=== PATIENT | female | born 1950 | race Caucasian/White ===

== ENCOUNTER → 2016-10-24 | Outpatient (CLI) | payer OTHER ==
[~2016-10-24] MED LIST: ACHYD1T PO; ARIP10TA2 PO; ARIP20TA9 PO; CIPR-226 PO; CIPR250S3 PO; DCS100C PO; EST45C VG; ESTR1TAB24 PO; FLUO40CA PO; FLUO40CA12 PO; GABA600T PO; GBPN300C PO; GEMF600T3 PO; GLIM4TAB PO; HYDR-3820 PO; HYDR25TA4 PO; IBP800T PO; INSU100V SQ; INSU100V6 SQ; MAGN250T35 PO; METF-380 PO; MGX400T PO; OMEP20TA2 PO; OMEP40CA36 PO; OXYB10TA PO; PHEN-640 PO; SITA1TAB3 PO; SITA1TBM7 PO; TOPI100T2 PO; potassium citrate PO
--- NOTE | 2016-10-24 12:19 | Diagnostic Imaging Report ---
PROCEDURE: US Thyroid. TECHNIQUE: Multiple real-time grayscale images were obtained of the thyroid in various projections. INDICATION: Thyromegaly on physical exam. COMPARISON: None. DISCUSSION: The thyroid gland is normal in echotexture and size. The right thyroid measures 5.5 x 1.6 x 1.5 cm. The left thyroid measures 4.4 x 1.4 x 1.5 cm. There is an 8-mm hypoechoic heterogeneous nodule within the right thyroid gland which is nonspecific and too small to further characterize by ultrasound. No associated microcalcifications or internal color Doppler blood flow. Prominent lymph nodes are noted bilaterally measuring 1.7 cm on the right and 1.6 cm on the left. Lymph nodes maintain a normal fatty hilum with a mildly prominent cortex. Etiology is indeterminate, reactive versus pathologic. Recommend clinical correlation. IMPRESSION: 1. Subcentimeter indeterminate right thyroid nodule. Recommend 6 to 12-month sonographic followup. 2. Prominent bilateral cervical lymph nodes of uncertain etiology. Dictated by: Dictated on workstation # [id number]
== END ==
LOC: RAD 10:48
PROVIDERS: ATTEND Nurse Practitioner Family
DX: E04.1 Nontoxic single thyroid nodule (principal); R59.0 Localized enlarged lymph nodes
CPT/HCPCS: 76536

== ENCOUNTER → 2016-11-10 | Outpatient (CLI) | payer OTHER ==
--- NOTE | 2016-11-10 10:11 | Diagnostic Imaging Report ---
INDICATION: Swollen lymph nodes and cough. TECHNIQUE: PA and lateral views of the chest were obtained at 0728 hours. COMPARISON: 02/03/2015. FINDINGS: The heart is normal in size. The mediastinum appears unremarkable. The yennifer appear normal. There is a calcified granuloma in the right lung base which is unchanged. There are diffuse degenerative changes in the thoracic spine. IMPRESSION: No acute process in the chest. Stable calcified granuloma in the right base. No significant adenopathy of the chest is visualized. Dictated by: Dictated on workstation # [id number]
== END ==
LOC: RAD 06:55
PROVIDERS: ATTEND Internal Medicine
DX: R59.1 Generalized enlarged lymph nodes (principal)
CPT/HCPCS: 71020

== ENCOUNTER 2017-02-26 03:29 | Emergency (ER) | payer MEDICARE, OTHER ==
[~2017-02-26] VITALS: Ht 162.6 cm; Wt 76.2 kg
[2017-02-26] MEDS ORDERED: CARB1TAB19 (03:45)
[2017-02-26] MEDS ORDERED: METF500T4 (03:45)
[2017-02-26] MEDS ORDERED: OXYB10TA (03:45)
[2017-02-26] MEDS ORDERED: OMEP40CA36 (03:45)
[2017-02-26] MEDS ORDERED: ROPI2TAB4 (03:45)
[2017-02-26] MEDS: KETOROLAC 60 MG/2 ML VIAL IM ONE (04:36)
--- NOTE | 2017-02-26 04:39 | ED Fall/Injury ---
General Chief Complaint: Trauma-Non Activation Stated Complaint: LEFT LOWER SIDE,HIP & LEG PAIN Nursing Triage Note: LEFT HIP/SHOULDER PAIN S/P FALL FROM STANDING POSITION APPROX. 10DAYS AGO. PT DENIES LOC/OTHER INJURIES Source: patient Exam Limitations: no limitations History of Present Illness Time seen by provider: 03:43 Initial Comments This 66-year-old woman ambulates into the emergency room with complaints of left buttock and hip pain since having a fall on February 22. She reports pain has intensified since that time. She has remained ambulatory. She fell to the left side striking her shoulder on the wall and her hip on the ground. She could not sleep tonight because the pain and decided to present to the emergency room. She has been taking Tylenol for the pain. Pain is reportedly 8 /10 on the pain scale. Location Injury Occurred: HOME Allergies and Home Medications Allergies Coded Allergies: Nitrofurantoin Macrocrystal (Unverified Allergy, Unknown, RASH, 11/23/14) Penicillins (Unverified Allergy, Unknown, RASH, 11/23/14) Home Medications Aripiprazole 20 Mg Tablet, 20 MG PO DAILY, (Reported) Carbidopa/Levodopa 1 Each Tablet, (Reported) Estradiol 1 Mg Tablet, 1 MG PO DAILY, (Reported) Fluoxetine HCl 40 Mg Capsule, 40 MG PO BID, (Reported) Gabapentin 600 Mg Tablet, 1,200 MG PO DAILY, (Reported) Gemfibrozil 600 Mg Tablet, 600 MG PO BID, (Reported) Hydrochlorothiazide 25 Mg Tablet, 25 MG PO DAILY, (Reported) Insulin Glargine,Hum.rec.anlog 100 Unit/1 Ml Vial, 10 UNIT SQ HS, (Reported) Insulin Lispro 100 Unit/1 Ml Vial, 25 UNIT SQ TIDAC, (Reported) Magnesium Oxide 250 Mg Tablet, 250 MG PO BID, (Reported) Metformin HCl 500 Mg Tablet, (Reported) Omeprazole 40 Mg Capsule.dr, 40 MG PO DAILY, (Reported) Omeprazole 40 Mg Capsule.dr, (Reported) Oxybutynin Chloride 10 Mg Tab.er.24, (Reported) Ropinirole HCl 2 Mg Tablet, (Reported) Sitagliptin Phos/Metformin Hcl 1 Each Tablet, 1 TAB PO BID, (Reported) Topiramate 100 Mg Tablet, 100 MG PO BID, (Reported) [potassium citrate] , 1,080 MG PO BID WITH MEALS, (Reported) Constitutional: no symptoms reported Eyes: No Symptoms Reported Ears, Nose, Mouth, Throat: no symptoms reported Respiratory: no symptoms reported Cardiovascular: no symptoms reported Gastrointestinal: no symptoms reported Genitourinary: no symptoms reported Musculoskeletal: see HPI Skin: no symptoms reported Psychiatric/Neurological: No Symptoms Reported Past Ydjqszu-Moredk-Ornvpt Hx Patient Social History Alcohol Use: Denies Use Recreational Drug Use: No Smoking Status: Never a Smoker 2nd Hand Smoke Exposure: No Recent Foreign Travel: No Contact w/Someone Who Travel: No Recent Infectious Disease Expo: No Recent Hopitalizations: No Immunizations Up To Date Tetanus Booster (TDap): Unknown Seasonal Allergies Seasonal Allergies: Yes Surgeries History of Surgeries: Yes (kidney stone, right breast lesion, macroplastique) Surgeries: Hysterectomy Respiratory History of Respiratory Disorde: No Cardiovascular History of Cardiac Disorders: No Neurological History of Neurological Disord: Yes (Tremors) Reproductive System Hx Reproductive Disorders: No Genitourinary History of Genitourinary Disor: Yes Genitourinary Disorders: Kidney Stones Gastrointestinal History of Gastrointestinal Di: Yes Gastrointestinal Disorders: Gastroesophageal Reflux Musculoskeletal History of Musculoskeletal Dis: Yes (ARTHRITIS) Musculoskeletal Disorders: Arthritis Endocrine History of Endocrine Disorders: Yes Endocrine Disorders: Diabetes, Non-Insulin dep Cancer History of Cancer: No Psychosocial History of Psychiatric Problem: Yes Behavioral Health Disorders: Anxiety, Depression Integumentary History of Skin or Integumenta: No Blood Transfusions History of Blood Disorders: No Adverse Reaction to a Blood Tr: No Family Medical History Significant Family History: No Pertinent Family Hx Physical Exam Vital Signs Vital Sign - Last 12Hours 02/26/17 03:46 Temp 97.0 Pulse 69 Resp 18 B/P (MAP) 152/73 Pulse Ox 100 O2 Delivery Room Air Capillary Refill : Less Than 3 Seconds General Appearance: WD/WN, no apparent distress HEENT: PERRL/EOMI, normal ENT inspection Neck: normal inspection Cardiovascular: regular rate, rhythm, no edema, no murmur Respiratory: lungs clear, normal breath sounds, no respiratory distress, no accessory muscle use Gastrointestinal: normal bowel sounds, non tender, soft Back: normal inspection, no vertebral tenderness Extremities: normal inspection, no pedal edema, other (Tenderness in the musculature of the left buttock. 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, no motor/sensory deficits, alert, normal mood/affect, oriented x 3 Skin: normal color, warm/dry [place] Coma Score Best Eye Response: (4) Open Spontaneously Best Verbal Response: (5) Oriented Best Motor Response: (6) Obeys Commands [place] Total: 15 Progress/Results/Core Measures Results/Orders My Orders Orders - DARIEL TREVIZO MD Pelvis With Left Hip 2-3 Views (02/26/17 03:49) Ketorolac Injection (Toradol Injection) (02/26/17 04:30) Medications Given in ED Current Medications Medications Dose Ordered Sig/Matt Route Start Time Stop Time Status Last Admin Dose Admin Ketorolac Tromethamine 60 mg ONCE ONCE IM 02/26/17 04:30 02/26/17 04:31 DC 02/26/17 04:36 60 MG Vital Signs/I&O Vital Sign - Last 12Hours 02/26/17 02/26/17 03:46 04:40 Temp 97.0 97.0 Pulse 69 70 Resp 18 18 B/P (MAP) 152/73 Pulse Ox 100 100 O2 Delivery Room Air Room Air Blood Pressure Mean: 99 Diagnostic Imaging Diagonstic Imaging: Xray Plain Films/CT/US/NM/MRI: pelvis, hip Comments X-ray of the pelvis and the left hip viewed by me. Report not yet available. There are degenerative arthritic changes but no acute injuries identified. Departure Impression Impression: Primary Impression: Fall on same level Qualified Codes: W18.30XA - Fall on same level, unspecified, initial encounter Additional Impression: Left hip pain Disposition: 01 HOME, SELF-CARE Condition: Improved Departure-Patient Inst. Decision time for Depature: 04:30 Referrals: RIVKA PAGE DO (PCP/Family) Primary Care Physician Patient Instructions: NO INSTRUCTIONS GIVEN Add. Discharge Instructions: You may take Tylenol at the (acetaminophen) up to 1000 mg every 6 hours as needed for pain. Add ibuprofen 400 mg every 6 hours as needed for additional pain relief. Follow-up with your primary care provider if not improving. Gentle heat or ice may also be helpful for pain relief. All discharge instructions reviewed with patient and/or family. Voiced understanding. DARIEL TREVIZO MD Feb 26, 2017 04:39
[2017-02-26 04:40] VITALS: BP 164/77
--- NOTE | 2017-02-26 06:10 | Diagnostic Imaging Report ---
PELVIS WITH LEFT HIP 2-3 VIEWS Comparison: None available. Indication: Fall with left hip pain. Technique: AP pelvis with AP and frog-leg lateral views of the left hip. Findings: No acute or healing fracture. Mild to moderate productive degenerative changes of both hips. Well-corticated ossific fragment along the superior aspect of the left greater trochanter is likely from old trauma or heterotopic ossification within the gluteal tendons. Enthesopathic changes are seen in both iliac wings. Scattered pelvic phleboliths. Impression: 1. No acute or healing fracture about the left hip. Dictated by: Dictated on workstation # [id number]
[2017-02-27] MEDS ORDERED: PRD10T PO (18:31)
[2017-02-27] MEDS ORDERED: HYDR-3812 PO (18:31)
== END 2017-02-26 04:40 | disposition home or self-care (01) ==
LOC: EDUNIT# 03:29 → ER 03:34
DX: M25.552 Pain in left hip (principal); F41.9 Anxiety disorder, unspecified; F32.9 Major depressive disorder, single episode, unspecified; K21.9 Gastro-esophageal reflux disease without esophagitis; E11.9 Type 2 diabetes mellitus without complications; M16.10 Unilateral primary osteoarthritis, unspecified hip; Z87.442 Personal history of urinary calculi; Z90.710 Acquired absence of both cervix and uterus; Z79.4 Long term (current) use of insulin; Z79.84 Long term (current) use of oral hypoglycemic drugs; W18.30XA Fall on same level, unspecified, initial encounter
CPT/HCPCS: 96372; 99284

== ENCOUNTER 2017-02-27 17:22 | Emergency (ER) | payer MEDICARE, OTHER ==
[~2017-02-27] VITALS: Ht 162.6 cm; Wt 72.6 kg
[~2017-02-27 17:22] MED LIST changes: +CARB1TAB19; +METF500T4; +OMEP40CA36; +OXYB10TA; +ROPI2TAB4
--- NOTE | 2017-02-27 18:29 | ED Hip Pain/Injury ---
General Chief Complaint: Hip/Pelvic Problems Stated Complaint: L HIP PAIN Nursing Triage Note: C/o left hip pain. Reports recent fall but xrays were negative. Pt was recently evaluated in the ER and again at Dr. Swann's office. Pt received steroid injection at Shree's office. No bruising noted to hip. Source: patient, old records Exam Limitations: no limitations History of Present Illness Time seen by provider: 18:20 Initial Comments Patient presented to this emergency room very early yesterday morning with complaints of left hip pain after having a fall. See yesterday's note for further details. She then followed up with Dr. Swann in his office. She received a steroid injection at that time. She reports Dr. Swann felt she had hip bursitis aggravated by the fall. She has also been trying ibuprofen. She had temporary relief after the steroid injection, but states the pain is now intolerable despite the steroid and the NSAID therapy. She states Toradol injection given yesterday also did not have a lasting impact. Patient reports she missed 9 hours of work today because of these symptoms. Allergies and Home Medications Allergies Coded Allergies: Nitrofurantoin Macrocrystal (Unverified Allergy, Unknown, RASH, 11/23/14) Penicillins (Unverified Allergy, Unknown, RASH, 11/23/14) Home Medications Aripiprazole 20 Mg Tablet, 20 MG PO DAILY, (Reported) Carbidopa/Levodopa 1 Each Tablet, (Reported) Estradiol 1 Mg Tablet, 1 MG PO DAILY, (Reported) Fluoxetine HCl 40 Mg Capsule, 40 MG PO BID, (Reported) Gabapentin 600 Mg Tablet, 1,200 MG PO DAILY, (Reported) Gemfibrozil 600 Mg Tablet, 600 MG PO BID, (Reported) Hydrochlorothiazide 25 Mg Tablet, 25 MG PO DAILY, (Reported) Hydrocodone/Acetaminophen 1 Each Tablet, 1 EACH PO Q4H PRN for PAIN, #20 Prescribed by: DARIEL AVENDAÑO on 02/27/17 183 Insulin Glargine,Hum.rec.anlog 100 Unit/1 Ml Vial, 10 UNIT SQ HS, (Reported) Insulin Lispro 100 Unit/1 Ml Vial, 25 UNIT SQ TIDAC, (Reported) Magnesium Oxide 250 Mg Tablet, 250 MG PO BID, (Reported) Metformin HCl 500 Mg Tablet, (Reported) Omeprazole 40 Mg Capsule., 40 MG PO DAILY, (Reported) Omeprazole 40 Mg Capsule., (Reported) Oxybutynin Chloride 10 Mg Tab.er.24, (Reported) Prednisone 10 Mg Tab, 10 MG PO UD, #18 3 tablets daily for 3 days, then 2 daily for 3 days, then one daily for 3 days Prescribed by: DARIEL AVENDAÑO on 02/27/17 183 Ropinirole HCl 2 Mg Tablet, (Reported) Sitagliptin Phos/Metformin Hcl 1 Each Tablet, 1 TAB PO BID, (Reported) Topiramate 100 Mg Tablet, 100 MG PO BID, (Reported) [potassium citrate] , 1,080 MG PO BID WITH MEALS, (Reported) Constitutional: no symptoms reported EENTM: no symptoms reported Respiratory: no symptoms reported Cardiovascular: no symptoms reported Gastrointestinal: no symptoms reported Genitourinary: no symptoms reported : No Musculoskeletal: see HPI Skin: no symptoms reported Psychiatric/Neurological: No Symptoms Reported Past Eabypin-Zkjtuc-Tsyxci Hx Patient Social History 2nd Hand Smoke Exposure: No Recent Foreign Travel: No Contact w/Someone Who Travel: No Recent Infectious Disease Expo: No Recent Hopitalizations: No Immunizations Up To Date Tetanus Booster (TDap): Unknown Seasonal Allergies Seasonal Allergies: Yes Surgeries History of Surgeries: Yes (kidney stone, right breast lesion, macroplastique) Surgeries: Hysterectomy Respiratory History of Respiratory Disorde: No Cardiovascular History of Cardiac Disorders: No Neurological History of Neurological Disord: Yes (Tremors) Reproductive System Hx Reproductive Disorders: No Genitourinary History of Genitourinary Disor: Yes Genitourinary Disorders: Kidney Stones Gastrointestinal History of Gastrointestinal Di: Yes Gastrointestinal Disorders: Gastroesophageal Reflux Musculoskeletal History of Musculoskeletal Dis: Yes (ARTHRITIS) Musculoskeletal Disorders: Arthritis Endocrine History of Endocrine Disorders: Yes Endocrine Disorders: Diabetes, Non-Insulin dep Cancer History of Cancer: No Psychosocial History of Psychiatric Problem: Yes Behavioral Health Disorders: Anxiety, Depression Integumentary History of Skin or Integumenta: No Blood Transfusions History of Blood Disorders: No Adverse Reaction to a Blood Tr: No Family Medical History Significant Family History: No Pertinent Family Hx Physical Exam Vital Signs Vital Sign - Last 12Hours 02/27/17 02/27/17 18:10 18:49 Temp 97.2 Pulse 16 Resp 16 B/P (MAP) 144/76 Pulse Ox 98 Capillary Refill : Less Than 3 Seconds General Appearance: No Apparent Distress, WD/WN HEENT: Normal ENT Inspection Neck: Normal Inspection Respiratory: No Respiratory Distress Extremity: Normal Inspection, No Pedal Edema, Other (There is tenderness over the lateral trochanter on the left. No pain over palpation of the hip joint. 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 She received a steroid injection by Dr. Swann yesterday which gave her some temporary relief. X- ray images and report from yesterday were reviewed. The ossific density on x- ray and location of pain on exam would suggest trochanteric bursitis or tendinopathy. A Toradol injection was administered. Hydrocodone is being prescribed to help bridge her over along with a steroid taper. Departure Impression Impression: Primary Impression: Left hip pain Additional Impressions: Fall on same level Qualified Codes: W18.30XD - Fall on same level, unspecified, subsequent encounter Trochanteric bursitis of left hip Disposition: HOME, SELF-CARE Condition: Improved Departure-Patient Inst. Decision time for Depature: 18:20 Referrals: RIVKA SWANN DO (PCP/Family) Primary Care Physician Patient Instructions: Hip Bursitis (DC) Add. Discharge Instructions: You may continue taking ibuprofen up to 600 mg every 6 hours as needed for pain. This should help gradually reduce your pain. Take ibuprofen and prednisone with food or milk to avoid irritation on your stomach. Add hydrocodone for pain not controlled by ibuprofen. Complete steroid taper as prescribed. Take prednisone early in the day to avoid sleep disturbance. Take a stool softener such as Colace while on narcotic pain medications to avoid constipation. Follow-up with Dr. Swann or an orthopedic provider of your choice next week for repeat examination. Physical therapy for education on stretching and exercises to help with this pain may be beneficial. All discharge instructions reviewed with patient and/or family. Voiced understanding. Scripts Prednisone (Prednisone) 10 Mg Tab 10 MG PO UD, #18 TAB 3 tablets daily for 3 days, then 2 daily for 3 days, then one daily for 3 days Prov: DARIEL TREVIZO MD 02/27/17 Hydrocodone/Acetaminophen (Hydrocodon -Acetaminophen 5-325) 1 Each Tablet 1 EACH PO Q4H Y for PAIN, #20 TAB Prov: DARIEL TREVIZO MD 02/27/17 DARIEL TREVIZO MD Feb 27, 2017 18:29
[2017-02-27] MEDS ORDERED: PRD10T PO (18:31)
[2017-02-27] MEDS: KETOROLAC 60 MG/2 ML VIAL IM ONE (18:31)
[2017-02-27] MEDS ORDERED: HYDR-3812 PO (18:31)
[2017-02-27 18:49] VITALS: BP 140/74
--- OUTSIDE RECORDS SUMMARY | 2017-03-02 08:14 | XMS REPORT ---
Author Author JOSSIE GURROLA Organization [employer] Address Unknown Phone Unavailable Care Team Providers Care Data Communications Engineer Name Role Phone JOSSIE GURROLA CP Unavailable Allergies No Known Allergies Problems Problem Type Condition Code Onset Dates Condition Status Problem Generalized anxiety disorder F41.1 Active Problem Bipolar disorder, current episode depressed, severe, without psychotic features F31.4 Active Medications Medication Code System Code Instructions Start Date End Date Status Dosage Topamax [facility] [address]-39 100 MG Orally Twice a day September 06, 2014 1 tablet Prozac [facility] [address]-84 40 MG Orally twice a day September 06, 2014 1 capsule - brand name Gabapentin [facility] [address]-20 600 MG Orally TAKE 1 TABLET BY ORAL ROUTE 1 DAILY PRN FOR BACK/HIP/LEG PAIN Abilify [facility] [address]-76 20 MG Orally Once a day September 06, 2014 1 tablet Results No Known Results Summary Purpose [employer] Submission
--- OUTSIDE RECORDS SUMMARY | 2017-03-02 08:14 | XMS REPORT ---
Author Author MARÍA MANN [facility] [employer] Address Unknown Phone Unavailable Care Team Providers Care Compliance Vice President Name Role Phone MARÍA MANN CP Unavailable Allergies, Adverse Reactions, Alerts Substance Reaction Event Type Penicillin V Potassium hives Drug Allergy Macrodantin hives Drug Allergy Mushrooms hives, upset stomach Non Drug Allergy Cow milk hives, upset stomach Non Drug Allergy Goat milk hives, upset stomach Non Drug Allergy Eggs hives, upset stomach Non Drug Allergy Soy hives, upset stomach Non Drug Allergy Problems Problem Type Condition Code Onset Dates Condition Status Problem Generalized anxiety disorder F41.1 Active Assessment Adjustment disorder with mixed anxiety and depressed mood F43.23 Active Problem Bipolar disorder, current episode depressed, moderate F31.32 Active Medications No Known Medications Procedures Procedure Coding System Code Date Psych diagnostic evaluation, new patient CPT-4 27156 Apr 08, 2016 Results No Known Results Summary Purpose [employer] Submission
--- OUTSIDE RECORDS SUMMARY | 2017-03-02 08:14 | XMS REPORT ---
Author Author RYNE CAMP Organization [employer] Address Unknown Phone Unavailable Care Team Providers Care Group Home Supervisor Name Role Phone RYNE CAMP CP Unavailable Allergies No Known Allergies Problems Problem Type Condition Code Onset Dates Condition Status Problem Generalized anxiety disorder F41.1 Active Assessment Bipolar disorder, 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 Active Problem Bipolar disorder, 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 Active Assessment Generalized anxiety disorder F41.1 Active Medications No Known Medications Procedures Procedure Coding System Code Date Psychotherapy, patient &/family, 45 minutes, established patient CPT-4 61993 Jun 11, 2015 Results No Known Results Summary Purpose [employer] Submission
--- OUTSIDE RECORDS SUMMARY | 2017-03-02 08:14 | XMS REPORT ---
Author Author RYNE CAMP Organization [employer] Address Unknown Phone Unavailable Care Team Providers Care Retail Project Merchandiser Name Role Phone RYNE CAMP CP Unavailable Allergies No Known Allergies Problems Problem Type Condition Code Onset Dates Condition Status Problem Generalized anxiety disorder F41.1 Active Assessment Bipolar disorder, current episode depressed, moderate F31.32 Active Problem Bipolar disorder, current episode depressed, moderate F31.32 Active Assessment Generalized anxiety disorder F41.1 Active Medications No Known Medications Procedures Procedure Coding System Code Date Psychotherapy, patient &/family, 30 minutes, established patient CPT-4 76038 October 17, 2015 Results No Known Results Summary Purpose [employer] Submission
--- OUTSIDE RECORDS SUMMARY | 2017-03-02 08:14 | XMS REPORT ---
Author Author JOSSIE GURROLA Organization [facility] Address Unknown Care Team Providers Care Motel Maid Name Role Phone JOSSIE GURROLA Unavailable PROBLEMS Type Condition ICD9-CM Code [id number] Code Onset Dates Condition Status SNOMED Code Problem Bipolar disorder, current episode depressed, moderate F31.32 Active 762926011 Problem Generalized anxiety disorder F41.1 Active [id number] ALLERGIES Unknown Allergies SOCIAL HISTORY No smoking Hx information available PLAN OF CARE Activity Details Follow Up 3 Months Reason: VITAL SIGNS Height 65 in 2016-05-21 Weight 171 lbs 2016-05-21 Heart Rate 88 bpm 2016-05-21 Respiratory Rate 16 2016-05-21 BMI 28.45 kg/m2 2016-05-21 Blood pressure systolic 118 mmHg 2016-05-21 Blood pressure diastolic 62 mmHg 2016-05-21 MEDICATIONS Medication Instructions Dosage Frequency Start Date End Date Duration Status Topiramate 100 MG Orally Twice a day 1 tablet 12h 90 days Active Hydrochlorothiazide 25 MG Orally Once a day 1 tablet 24h Active Gemfibrozil 600 mg 1 tablet by Oral route 2 times per day Sep, Active Gabapentin 600 MG Orally once a day 2 tablets 24h Jun, 90 days Active Janumet 50-1,000 mg 1 Tablet by Oral route 1 time per day Feb, Active Potassium Citrate ER 10 MEQ (1080 MG) Orally twice a day 1 tablet with meals 12h Active Hydrocodone-Acetaminophen 10-325 mg 1 Tablet by Oral route 4 times per day PRN pain Jan, Active Omeprazole 40 mg 1 Capsule by Oral route 1 time per day Jan, Active Prozac 40 MG Orally client requests brand name twice a day 1 capsule 12h November, 90 days Active Ambien CR 12.5 MG Orally Once a day 1 tablet at bedtime as needed 24h 12 May, 2015 30 days Active Trazodone HCl 50 MG Orally Once a day 1 tablet at bedtime 24h May, 90 days Active Estradiol 1 mg 1 Tablet by Oral route 1 time per day 05 Dec, 2014 Active Magnesium 250 MG Orally twice a day 1 tablet with a meal 12h Active Abilify 20 MG Orally Once a day 1 tablet 24h Sep, 90 days Active RESULTS No Results PROCEDURES Procedure Date Ordered Related Diagnosis Body Site Office Visit, Est Pt., Level 3 May 21, 2016 IMMUNIZATIONS No Known Immunizations
--- OUTSIDE RECORDS SUMMARY | 2017-03-02 08:14 | XMS REPORT ---
Author Author RYNE CMAP Organization [employer] Address Unknown Phone Unavailable Care Team Providers Care Commanding Officer Motorized Squad Name Role Phone RYNE ACMP CP Unavailable Allergies No Known Allergies Problems Problem Type Condition Code Onset Dates Condition Status Problem Generalized anxiety disorder F41.1 Active Assessment Bipolar disorder, 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 Active Problem Bipolar disorder, 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 Active Assessment Generalized anxiety disorder F41.1 Active Medications No Known Medications Procedures Procedure Coding System Code Date Psychotherapy, patient &/family, 45 minutes, established patient CPT-4 37574 Jul 17, 2015 Results No Known Results Summary Purpose [employer] Submission
--- OUTSIDE RECORDS SUMMARY | 2017-03-02 08:14 | XMS REPORT ---
Author Author GOGO VALENZUELA [facility] [employer] Address Unknown Phone Unavailable Care Team Providers Care Gas Compressor Turbine Operator Name Role Phone GOGO VALENZUELA CP Unavailable Allergies, Adverse Reactions, Alerts Substance [...] anxiety disorder F41.1 Active Assessment Bipolar disorder, unspecified F31.9 Active Problem Bipolar disorder, current episode depressed, severe, without psychotic features F31.4 Active Assessment Generalized anxiety disorder F41.1 Active Assessment Insomnia G47.00 Active Medications Medication Code System Code Instructions Start Date End Date Status Dosage Ambien CR [facility] [address]-36 12.5 MG Orally Once a day May 17, 2015 1 tablet at bedtime as needed Procedures Procedure Coding System Code Date Office Visit, Est Pt., Level 4 CPT-4 53815 May 17, 2015 Results No Known Results Summary Purpose [employer] Submission
--- OUTSIDE RECORDS SUMMARY | 2017-03-02 08:14 | XMS REPORT ---
Author Author RYNE CAMP Organization [employer] Address Unknown Phone Unavailable Care Team Providers Care Vermin Exterminator Name Role Phone RYNE CAMP CP Unavailable [...] patient &/family, 30 minutes, established patient CPT-4 65584 October 31, 2015 Results No Known Results Summary Purpose [employer] Submission
--- OUTSIDE RECORDS SUMMARY | 2017-03-02 08:15 | XMS REPORT ---
Author Author RYNE CAMP Organization [employer] Address Unknown Phone Unavailable Care Team Providers Care Parking Enforcement Specialist Name Role Phone RYNE CAMP CP Unavailable Allergies No Known Allergies Problems Problem Type Condition Code Onset Dates Condition Status Problem Generalized anxiety disorder F41.1 Active Assessment Bipolar disorder, current episode depressed, severe, without psychotic features F31.4 Active Problem Bipolar disorder, current episode depressed, severe, without psychotic features F31.4 Active Assessment Generalized anxiety disorder F41.1 Active Medications No Known Medications Procedures Procedure Coding System Code Date Psychotherapy, patient &/family, 45 minutes, established patient CPT-4 92646 Apr 18, 2015 Results No Known Results Summary Purpose [employer] Submission
--- OUTSIDE RECORDS SUMMARY | 2017-03-02 08:15 | XMS REPORT ---
Author Author RYNE CAMP Organization [employer] Address Unknown Phone Unavailable Care Team Providers Care Documentum Consultant Name Role Phone RYNE CAMP CP Unavailable [...] patient &/family, 30 minutes, established patient CPT-4 63075 Aug 17, 2015 Results No Known Results Summary Purpose [employer] Submission
--- OUTSIDE RECORDS SUMMARY | 2017-03-02 08:15 | XMS REPORT ---
Author Author GOGO VALENZUELA [facility] [employer] Address Unknown Phone Unavailable Care Team Providers Care Morals Squad Police Officer Name Role Phone GOGO VALENZUELA Unavailable Allergies No Known Allergies Problems Problem Type Condition Code Onset Dates Condition Status Problem Generalized anxiety disorder F41.1 Active Problem Bipolar disorder, current episode depressed, severe, without psychotic features F31.4 Active Medications No Known Medications Results No Known Results Summary Purpose [employer] Submission
--- OUTSIDE RECORDS SUMMARY | 2017-03-02 08:15 | XMS REPORT ---
Author Author JOSSIE GURROLA [facility] [place] [employer] Address Unknown Phone Unavailable Care Team Providers Care Structural Metal Worker Name Role Phone JOSSIE GURROLA CP Unavailable Allergies, Adverse Reactions, Alerts Substance [...] Problem Generalized anxiety disorder F41.1 Active Assessment Generalized anxiety disorder F41.1 Active Problem Bipolar disorder, current episode depressed, moderate F31.32 Active Assessment Bipolar disorder, 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 Active Medications Medication Code System Code Instructions Start Date End Date Status Dosage Prozac [facility] [address]-81 40 MG Orally twice a day November 05, 2015 1 capsule Omeprazole [facility] [address]-93 40 mg February 02, 2014 1 Capsule by Oral route 1 time per day Prozac [facility] [address]-03 20 MG Orally and 1 capsule at night September 10, 2015 2 capsule in the morning Gemfibrozil [facility] [address]-08 600 mg September 06, 2014 1 tablet by Oral route 2 times per day Janumet [facility] [address]-20 50-1,000 mg Feb 23, 2013 1 Tablet by Oral route 1 time per day Topiramate [facility] [address]-57 100 MG Orally Twice a day 1 tablet Gabapentin [facility] [address]-10 600 MG Orally once a day Jun 06, 2015 2 tablets Hydrochlorothiazide [facility] [address]-60 25 MG Orally Once a day 1 tablet Estradiol [facility] [address]-37 1 mg Jun 09, 2014 1 Tablet by Oral route 1 time per day Premarin [facility] [address]-10 0.625 mg/gram September 06, 2012 1 Cream by Subcutaneous route 1 time per day Magnesium [facility] [address]-31 250 MG Orally twice a day 1 tablet with a meal Ambien CR [facility] [address]-20 12.5 MG Orally Once a day May 17, 2015 1 tablet at bedtime as needed Hydrocodone-Acetaminophen [facility] [address]-74 10-325 mg February 02, 2014 1 Tablet by Oral route 4 times per day PRN pain Abilify [facility] [address]-37 20 MG Orally Once a day September 06, 2014 1 tablet Potassium Citrate ER [facility] [address]-98 10 MEQ (1080 MG) Orally twice a day 1 tablet with meals Procedures Procedure Coding System Code Date MH Office Visit, Est Pt., Level 3 CPT-4 20752 November 05, 2015 Vital Signs Date/Time: November 05, 2015 Cardiac Monitoring Heart Rate 80 bpm Weight 171.2 lbs Height 65 in BMI 28.49 Index Blood Pressure Diastolic 65 mmHg Blood Pressure Systolic 110 mmHg Results No Known Results Summary Purpose [employer] Submission
--- OUTSIDE RECORDS SUMMARY | 2017-03-02 08:15 | XMS REPORT ---
Author Author GOGO VALENZUELA [facility] [employer] Address Unknown Phone Unavailable Care Team Providers Care Fruit Or Nut Farmworker Name Role Phone GOGO VALENZUELA Unavailable Allergies No Known Allergies Problems Problem Type Condition Code Onset Dates Condition Status Problem Generalized anxiety disorder F41.1 Active Problem Bipolar disorder, 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 Active Medications No Known Medications Results No Known Results Summary Purpose [employer] Submission
--- OUTSIDE RECORDS SUMMARY | 2017-03-02 08:15 | XMS REPORT ---
Author Author RYNE CAMP Organization [employer] Address Unknown Phone Unavailable Care Team Providers Care Sow Farm Manager Name Role Phone RYNE CAMP CP Unavailable [...] patient &/family, 30 minutes, established patient CPT-4 50756 May 15, 2016 Results No Known Results Summary Purpose [employer] Submission
--- OUTSIDE RECORDS SUMMARY | 2017-03-02 08:15 | XMS REPORT ---
Author Author JOSSIE GURROLA [facility] eClinicalWorks Address Unknown Phone Unavailable Care Team Providers Care Cheese Packer Name Role Phone JOSSIE GURROLA Unavailable Allergies, Adverse Reactions, Alerts Substance Reaction [...] F31.32 Active Assessment Bipolar disorder, current episode depressed, moderate F31.32 Active Medications Medication Code System Code Instructions Start Date End Date Status Dosage Janumet [facility] [address]-84 50-1,000 mg Feb 23, 2013 1 Tablet by Oral route 1 time per day Hydrochlorothiazide [facility] [address]-05 25 MG Orally Once a day 1 tablet Abilify [facility] [address]-43 20 MG Orally Once a day September 06, 2014 1 tablet Omeprazole [facility] [address]-56 40 mg February 02, 2014 1 Capsule by Oral route 1 time per day Gemfibrozil [facility] [address]-63 600 mg September 06, 2014 1 tablet by Oral route 2 times per day Potassium Citrate ER [facility] [address]-52 10 MEQ (1080 MG) Orally twice a day 1 tablet with meals Magnesium [facility] [address]-28 250 MG Orally twice a day 1 tablet with a meal Ambien CR [facility] [address]-96 12.5 MG Orally Once a day May 17, 2015 1 tablet at bedtime as needed Topiramate [facility] [address]-81 100 MG Orally Twice a day 1 tablet Prozac [facility] [address]-91 40 MG Orally twice a day November 05, 2015 1 capsule Gabapentin [facility] [address]-05 600 MG Orally once a day Jun 06, 2015 2 tablets Estradiol [facility] [address]-65 1 mg Jun 09, 2014 1 Tablet by Oral route 1 time per day Procedures Procedure Coding System Code Date Office Visit, Est Pt., Level 3 CPT-4 46311 Feb 04, 2016 Vital Signs Date/Time: Feb 04, 2016 Cardiac Monitoring Heart Rate 92 bpm Weight 178.4 lbs Height 65 in BMI 29.68 Index Blood Pressure Diastolic 60 mmHg Blood Pressure Systolic 120 mmHg Results No Known Results Summary Purpose eClinicalWorks Submission
--- OUTSIDE RECORDS SUMMARY | 2017-03-02 08:16 | XMS REPORT ---
Author Author RYNE CAMP Organization e[employer] Address Unknown Phone Unavailable Care Team Providers Care Poultry Scientist Name Role Phone RYNE CAMP CP Unavailable Allergies No Known Allergies Problems Problem Type Condition Code Onset Dates Condition Status Problem Generalized anxiety disorder F41.1 Active Assessment Bipolar disorder, 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 Active Problem Bipolar disorder, 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 Active Medications No Known Medications Procedures Procedure Coding System Code Date Psychotherapy, patient &/family, 30 minutes, established patient CPT-4 56179 May 24, 2015 Results No Known Results Summary Purpose eClinicalWorks Submission
--- OUTSIDE RECORDS SUMMARY | 2017-03-02 08:16 | XMS REPORT ---
Author Author RYNE CAMP Organization [employer] Address Unknown Phone Unavailable Care Team Providers Care Concrete Buster Operator Name Role Phone RYNE CAMP CP Unavailable [...] patient &/family, 30 minutes, established patient CPT-4 32231 Jun 28, 2015 Results No Known Results Summary Purpose eClinicalWorks Submission
--- OUTSIDE RECORDS SUMMARY | 2017-03-02 08:16 | XMS REPORT ---
Author Author RYNE CAMP Organization [employer] Address Unknown Phone Unavailable Care Team Providers Care Software Security Consultant Name Role Phone RYNE CAMP CP Unavailable Allergies No Known Allergies Problems Problem Type Condition Code Onset Dates Condition Status Problem Generalized anxiety disorder F41.1 Active Problem Bipolar disorder, current episode depressed, moderate F31.32 Active Medications No Known Medications Results No Known Results Summary Purpose AddSearchinicalWorks Submission
--- OUTSIDE RECORDS SUMMARY | 2017-03-02 08:16 | XMS REPORT ---
Author Author JOSSIE GURROLA [facility] eClinicalWorks Address Unknown Phone Unavailable Care Team Providers Care Shank Scourer Name Role Phone JOSSIE GURROLA Unavailable Allergies, [...] disorder, 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 Active Assessment Bipolar disorder, 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 Active Medications Medication Code System Code Instructions Start Date End Date Status Dosage Hydrocodone-Acetaminophen [facility] [address]-74 10-325 mg February 02, 2014 1 Tablet by Oral route 4 times per day PRN pain Premarin [facility] [address]-45 0.625 mg/gram September 06, 2012 1 Cream by Subcutaneous route 1 time per day Hydrochlorothiazide [facility] [address]-99 25 MG Orally Once a day 1 tablet Estradiol [facility] [address]-58 1 mg Jun 09, 2014 1 Tablet by Oral route 1 time per day Potassium Citrate ER [facility] [address]-38 10 MEQ (1080 MG) Orally twice a day 1 tablet with meals Janumet [facility] [address]-18 50-1,000 mg Feb 23, 2013 1 Tablet by Oral route 1 time per day Magnesium [facility] [address]-87 250 MG Orally twice a day 1 tablet with a meal Gabapentin [facility] [address]-28 600 MG Orally once a day Jun 06, 2015 2 tablets Gemfibrozil [facility] [address]-43 600 mg September 06, 2014 1 tablet by Oral route 2 times per day Omeprazole [facility] [address]-87 40 mg February 02, 2014 1 Capsule by Oral route 1 time per day Ambien CR [facility] [address]-82 12.5 MG Orally Once a day May 17, 2015 1 tablet at bedtime as needed Abilify [facility] [address]-89 20 MG Orally Once a day September 06, 2014 1 tablet Topamax [facility] [address]-12 100 MG Orally Twice a day September 06, 2014 1 tablet Prozac [facility] [address]-66 40 MG Orally twice a day September 06, 2014 1 capsule - brand name Procedures Procedure Coding System Code Date Office Visit, Est Pt., Level 3 CPT-4 57915 Jun 06, 2015 Vital Signs Date/Time: Jun 06, 2015 Cardiac Monitoring Heart Rate 80 bpm Weight 159.3 lbs Height 65 in BMI 26.51 Index Blood Pressure Diastolic 62 mmHg Blood Pressure Systolic 130 mmHg Results No Known Results Summary Purpose eClinicalWorks Submission
--- OUTSIDE RECORDS SUMMARY | 2017-03-02 08:17 | XMS REPORT ---
Author Author JOSSIE GURROLA [facility] [place] eClinicalWorks Address Unknown Phone Unavailable Care Team Providers Care Telephone Order Dispatcher Name Role Phone JOSSIE GURROLA CP Unavailable [...] Non Drug Allergy Problems Problem Type Condition ICD-9 Code Onset Dates Condition Status Assessment Depression, major, recurrent 296.30 Active Problem Other and unspecified bipolar disorders 296.89 Active Problem Bipolar disorder, unspecified 296.80 Active Problem Major depressive disorder, recurrent episode, moderate 296.32 Active Assessment Bipolar disorder, unspecified 296.80 Active Assessment Generalized anxiety disorder 300.02 Active Problem Major depressive disorder, recurrent episode, unspecified 296.30 Active Problem Generalized anxiety disorder 300.02 Active Medications Medication Code System Code Instructions Start Date End Date Status Dosage Topamax [facility] [address]-75 100 MG Orally Twice a day September 06, 2014 1 tablet Prozac [facility] [address]-85 40 MG Orally twice a day September 06, 2014 1 capsule - brand name Janumet [facility] [address]-82 50-1,000 mg Feb 23, 2013 1 Tablet by Oral route 1 time per day Gabapentin [facility] [address]-08 600 MG Orally once a day Mar 07, 2015 2 tablets Premarin [facility] [address]-28 0.625 mg/gram September 06, 2012 1 Cream by Subcutaneous route 1 time per day Gemfibrozil [facility] [address]-04 600 mg September 06, 2014 1 tablet by Oral route 2 times per day Hydrocodone-Acetaminophen [facility] [address]-28 10-325 mg February 02, 2014 1 Tablet by Oral route 4 times per day PRN pain Omeprazole [facility] [address]-49 40 mg February 02, 2014 1 Capsule by Oral route 1 time per day Abilify [facility] [address]-28 20 MG Orally Once a day September 06, 2014 1 tablet Estradiol [facility] [address]-82 1 mg Jun 09, 2014 1 Tablet by Oral route 1 time per day Procedures Procedure Coding System Code Date Office Visit, Est Pt., Level 3 CPT-4 28333 Mar 07, 2015 Vital Signs Date/Time: Mar 07, 2015 Temperature 98.0 F Weight 160.6 lbs Height 65 in BMI 26.72 Index Blood Pressure Diastolic 60 mmHg Blood Pressure Systolic 130 mmHg Cardiac Monitoring Heart Rate 72 bpm Results No Known Results Summary Purpose eClinicalWorks Submission
--- OUTSIDE RECORDS SUMMARY | 2017-03-02 08:17 | XMS REPORT ---
Author Author JOSSIE GURROLA Organization e[employer] Address Unknown Phone Unavailable Care Team Providers Care Boiler Room Operator Name Role Phone JOSSIE GURROLA Unavailable Allergies No Known Allergies Problems Problem Type Condition Code Onset Dates Condition Status Problem Generalized anxiety disorder F41.1 Active Problem Bipolar disorder, current episode depressed, moderate F31.32 Active Medications Medication Code System Code Instructions Start Date End Date Status Dosage Anthonyzack [facility] [address]-72 10 mg Orally Once a day Apr 28, 2016 1 tablet at bedtime as needed Results No Known Results Summary Purpose eClinicalWorks Submission
--- OUTSIDE RECORDS SUMMARY | 2017-03-02 08:17 | XMS REPORT ---
Author Author RYNE CAMP Organization eClinicalWorks Address Unknown Phone Unavailable Care Team Providers Care Ion Exchange Operator Name Role Phone RYNE CAMP CP [...] patient &/family, 30 minutes, established patient CPT-4 30411 Apr 17, 2016 Results No Known Results Summary Purpose eClinicalWorks Submission
--- OUTSIDE RECORDS SUMMARY | 2017-03-02 08:17 | XMS REPORT ---
Author Author RYNE CAMP Organization [employer] Address Unknown Phone Unavailable Care Team Providers Care Solar Installer Name Role Phone RYNE CAMP CP Unavailable Allergies No Known Allergies Problems Problem Type Condition Code Onset Dates Condition Status Problem Generalized anxiety disorder F41.1 Active Problem Bipolar disorder, current episode depressed, moderate F31.32 Active Medications No Known Medications Results No Known Results Summary Purpose eClinicalWorks Submission
--- OUTSIDE RECORDS SUMMARY | 2017-03-02 08:17 | XMS REPORT ---
Author Author RYNE CAMP Organization [employer] Address Unknown Phone Unavailable Care Team Providers Care Piano Case Maker Name Role Phone RYNE CAMP CP Unavailable Allergies No Known Allergies Problems Problem Type Condition Code Onset Dates Condition Status Problem Generalized anxiety disorder F41.1 Active Assessment Bipolar disorder, current episode depressed, severe, without psychotic features F31.4 Active Problem Bipolar disorder, current episode depressed, severe, without psychotic features F31.4 Active Medications No Known Medications Procedures Procedure Coding System Code Date Psychotherapy, patient &/family, 30 minutes, established patient CPT-4 43074 Apr 24, 2015 Results No Known Results Summary Purpose eClinicalWorks Submission
--- OUTSIDE RECORDS SUMMARY | 2017-03-02 08:17 | XMS REPORT ---
Author Author JOSSIE GURROLA Organization eClinicalWorks Address Unknown Phone Unavailable Care Team Providers Care Care Transport Nurse Name Role Phone JOSSIE GURROLA Unavailable Allergies No Known Allergies Problems Problem Type Condition Code Onset Dates Condition Status Problem Generalized anxiety disorder F41.1 Active Problem Bipolar disorder, current episode depressed, moderate F31.32 Active Medications Medication Code System Code Instructions Start Date End Date Status Dosage Kory CHARLES [facility] [address]-21 12.5 MG Orally Once a day May 17, 2015 1 tablet at bedtime as needed Results No Known Results Summary Purpose eClinicalWorks Submission
--- OUTSIDE RECORDS SUMMARY | 2017-03-02 08:17 | XMS REPORT ---
Author Author RYNE CAMP Organization eClinical[employer] Address Unknown Phone Unavailable Care Team Providers Care Web Feeder Name Role Phone RYNE CAMP CP Unavailable [...] patient &/family, 45 minutes, established patient CPT-4 61792 Aug 03, 2015 Results No Known Results Summary Purpose eClinicalWorks Submission
--- OUTSIDE RECORDS SUMMARY | 2017-03-02 08:17 | XMS REPORT ---
Author Author RYNE CAMP Organization eClinicalWorks Address Unknown Phone Unavailable Care Team Providers Care Informatica Mdm Developer Name Role Phone RYNE CAMP CP Unavailable Allergies No Known Allergies Problems Problem Type Condition ICD-9 Code Onset Dates Condition Status Problem Other and unspecified bipolar disorders 296.89 Active Problem Bipolar disorder, unspecified 296.80 Active Problem Major depressive disorder, recurrent episode, moderate 296.32 Active Assessment Bipolar disorder, unspecified 296.80 Active Problem Major depressive disorder, recurrent episode, unspecified 296.30 Active Problem Generalized anxiety disorder 300.02 Active Medications No Known Medications Procedures Procedure Coding System Code Date Psychotherapy, patient &/family, 45 minutes, established patient CPT-4 44356 Mar 19, 2015 Results No Known Results Summary Purpose eClinicalWorks Submission
--- OUTSIDE RECORDS SUMMARY | 2017-03-02 08:17 | XMS REPORT ---
Author Author RYNE CAMP Organization eClinicalWorks Address Unknown Phone Unavailable Care Team Providers Care Research Asst Name Role Phone RYNE CAMP CP Unavailable [...] patient &/family, 30 minutes, established patient CPT-4 38006 Feb 19, 2016 Results No Known Results Summary Purpose eClinicalWorks Submission
--- OUTSIDE RECORDS SUMMARY | 2017-03-02 08:17 | XMS REPORT ---
Author Author RYNE CAMP Organization eClinicalWorks Address Unknown Phone Unavailable Care Team Providers Care Block Layer Name Role Phone RYNE CAMP CP Unavailable [...] patient &/family, 30 minutes, established patient CPT-4 60380 January 21, 2016 Results No Known Results Summary Purpose eClinicalWorks Submission
--- OUTSIDE RECORDS SUMMARY | 2017-03-02 08:18 | XMS REPORT ---
Author Author GOGO VALENZUELA [facility] eClinicalWorks Address Unknown Phone Unavailable Care Team Providers Care Environmental Field Technician Name Role Phone GOGO VALENZUELA CP Unavailable [...] F31.0 Active Assessment Bipolar disorder, current episode depressed, severe, without psychotic features F31.4 Active Medications Medication Code System Code Instructions Start Date End Date Status Dosage Gabapentin [facility] [id number] NA TAKE 1 TABLET BY ORAL ROUTE 1 DAILY PRN FOR BACK/HIP/LEG PAIN Prozac [facility] [address]-48 40 MG Orally twice a day September 06, 2014 1 capsule - brand name Omeprazole [facility] [address]-16 40 mg February 02, 2014 1 Capsule by Oral route 1 time per day Hydrocodone-Acetaminophen [facility] [address]-33 10-325 mg February 02, 2014 1 Tablet by Oral route 4 times per day PRN pain Topamax [facility] [address]-99 100 MG Orally Twice a day September 06, 2014 1 tablet Abilify [facility] [address]-35 20 MG Orally Once a day September 06, 2014 1 tablet Janumet [facility] [address]-26 50-1,000 mg Feb 23, 2013 1 Tablet by Oral route 1 time per day Gemfibrozil [facility] [address]-14 600 mg September 06, 2014 1 tablet by Oral route 2 times per day Estradiol [facility] [address]-11 1 mg Jun 09, 2014 1 Tablet by Oral route 1 time per day Ambien CR [facility] [address]-79 12.5 MG Orally Once a day May 17, 2015 1 tablet at bedtime as needed Premarin [facility] [address]-72 0.625 mg/gram September 06, 2012 1 Cream by Subcutaneous route 1 time per day Procedures Procedure Coding System Code Date MH Office Visit, Est Pt., Level 4 CPT-4 22036 May 28, 2015 Vital Signs Date/Time: May 28, 2015 Cardiac Monitoring Heart Rate 84 bpm Weight 159.0 lbs Height 65 in BMI 26.46 Index Blood Pressure Diastolic 66 mmHg Blood Pressure Systolic 140 mmHg Results No Known Results Summary Purpose eClinicalWorks Submission
--- OUTSIDE RECORDS SUMMARY | 2017-03-02 08:18 | XMS REPORT ---
Author Author RYNE CAMP Organization eClinicalWorks Address Unknown Phone Unavailable Care Team Providers Care Health Sciences Manager Name Role Phone RYNE CAMP CP [...] patient &/family, 30 minutes, established patient CPT-4 66010 May 01, 2015 Results No Known Results Summary Purpose eClinicalWorks Submission
--- OUTSIDE RECORDS SUMMARY | 2017-03-02 08:18 | XMS REPORT ---
Author Author RYNE CAMP Organization e[employer] Address Unknown Phone Unavailable Care Team Providers Care Threading Machine Setter Name Role Phone RYNE CAMP CP Unavailable [...] patient &/family, 30 minutes, established patient CPT-4 21512 May 17, 2015 Results No Known Results Summary Purpose eClinicalWorks Submission
--- OUTSIDE RECORDS SUMMARY | 2017-03-02 08:22 | XMS REPORT | Continuity of Care Document ---
Author Author [facility] Address Unknown Phone Unavailable Allergies Active Description Code Type Severity Reaction Onset Reported/Identified Relationship to Patient Clinical Status Yes COMMON MUSHROOM Food Allergy N/A N/A 01/22/2011 Yes COW MILK Food Allergy N/A N/A 01/22/2011 Yes EGGS Food Allergy N/A N/A 01/22/2011 Yes GOAT MILK Food Allergy N/A N/A 01/22/2011 Yes WHEAT Food Allergy N/A N/A 01/22/2011 Yes COMMON MUSHROOM Food Allergy 01/22/2011 Yes COW MILK Food Allergy 01/22/2011 Yes EGGS Food Allergy 01/22/2011 Yes GOAT MILK Food Allergy 01/22/2011 Yes WHEAT Food Allergy 01/22/2011 Yes Macrodantin Drug Allergy N/A N/A 07/25/2011 Yes Penicillins Drug Allergy N/A N/A 07/25/2011 Yes Macrodantin Drug Allergy 07/25/2011 Yes Penicillins Drug Allergy 07/25/2011 Yes gabapentin 600 mg Tablet Drug Allergy N/A N/A 04/25/2013 Yes soy Drug Allergy N/A N/A 12/02/2013 Yes Nitrofurantoin Macrocrystal [id number] Drug Allergy Unknown RASH 11/23/2014 Yes Penicillins [id number] Drug Allergy Unknown RASH 11/23/2014 Medications 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 301.13 MO CYCLOTHYMIC 01/26/2008 ZOË PHD, RYNE Gan 301.13 MO CYCLOTHYMIC 01/26/2008 ZOË PHD, RYNE Gan 301.13 MO CYCLOTHYMIC 01/26/2008 ZOË PHD, RYNE Gan 301.13 MO CYCLOTHYMIC 01/26/2008 ZOË PHD, RYNE Gan 301.13 MO CYCLOTHYMIC 01/26/2008 ZOË PHD, RYNE Gan 301.13 MO CYCLOTHYMIC 01/26/2008 JAIR BRADY [facility] 301.13 MO CYCLOTHYMIC 01/26/2008 ZOË GONZALEZ, RYNE Gan 301.13 MO CYCLOTHYMIC 01/26/2008 JAIR BRADY [facility] 301.13 MO CYCLOTHYMIC 01/26/2008 ZOË GONZALEZ, RYNE Gan 301.13 MO CYCLOTHYMIC 01/26/2008 ZOË GONZALEZ, RYNE Gan 301.13 MO CYCLOTHYMIC 01/26/2008 JAIR BRADY [facility] 301.13 MO CYCLOTHYMIC 01/26/2008 ZOË GONZALEZ, RYNE Gan 301.13 MO CYCLOTHYMIC 01/26/2008 ZOË GONZALEZ, RYNE Gan 301.13 MO CYCLOTHYMIC 01/26/2008 JAIR [address]AD[address] 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, JOSSIE M 301.13 MO CYCLOTHYMIC 01/26/2008 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, 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 M 301.13 MO CYCLOTHYMIC 01/26/2008 ZOË GONZALEZ, RYNE Gan 301.13 MO CYCLOTHYMIC 01/26/2008 IZABLEA LOPEZ, JOSSIE Bartlett 301.13 MO CYCLOTHYMIC 03/09/2008 EN PEARSON DO 307.47 SI DYSSOMNIA NOS 03/09/2008 307.47 SI DYSSOMNIA NOS 03/09/2008 ZOË GONZALEZ, RYNE Gan 307.47 SI DYSSOMNIA NOS 03/09/2008 EN PEARSON DO 307.47 SI DYSSOMNIA NOS 03/09/2008 ZOË GONZALEZ, RYNE Gan 307.47 SI DYSSOMNIA NOS 03/09/2008 307.47 SI DYSSOMNIA NOS 03/09/2008 307.47 SI DYSSOMNIA NOS 03/09/2008 307.47 SI DYSSOMNIA NOS 03/09/2008 307.47 SI DYSSOMNIA NOS 03/09/2008 307.47 SI DYSSOMNIA NOS 03/09/2008 307.47 SI DYSSOMNIA NOS 03/09/2008 307.47 SI DYSSOMNIA NOS 03/09/2008 RYNE CAMP PHD 307.47 SI DYSSOMNIA NOS 03/09/2008 RYNE CAMP PHD 307.47 SI DYSSOMNIA NOS 03/09/2008 YASSINE ADAM APRN 307.47 SI DYSSOMNIA NOS 03/09/2008 RYNE CAMP PHD 307.47 SI DYSSOMNIA NOS 03/09/2008 RYNE CAMP PHD 307.47 SI DYSSOMNIA NOS 03/09/2008 RYNE CAMP PHD 307.47 SI DYSSOMNIA NOS 03/09/2008 RYNE CAMP PHD 307.47 SI DYSSOMNIA NOS 03/09/2008 RYNE CAMP PHD 307.47 SI DYSSOMNIA NOS 03/09/2008 YASSINE ADAM APRN 307.47 SI DYSSOMNIA NOS 03/09/2008 ZOË GONZALEZ, RYNE Gan 307.47 SI DYSSOMNIA NOS 03/09/2008 JAIR BRADY YASSINE RERE 307.47 SI DYSSOMNIA NOS 03/09/2008 ZOË GONZALEZ, RYNE Gan 307.47 SI DYSSOMNIA NOS 03/09/2008 ZOË GONZALEZ, RYNE Gna 307.47 SI DYSSOMNIA NOS 03/09/2008 JAIR BRADY YASSINE RERE 307.47 SI DYSSOMNIA NOS 03/09/2008 ZOË GONZALEZ, RYNE Gan 307.47 SI DYSSOMNIA NOS 03/09/2008 ZOË PHD, RYNE Gan 307.47 SI DYSSOMNIA NOS 03/09/2008 JAIR BRADY YASSINE RERE 307.47 SI DYSSOMNIA NOS 03/09/2008 ZOË GONZALEZ, RYNE Gan 307.47 SI DYSSOMNIA NOS 03/09/2008 ZOË PHD, RYNE Gan 307.47 SI DYSSOMNIA NOS 03/09/2008 ZOË GONZALEZ, RYNE Gan 307.47 SI DYSSOMNIA NOS 03/09/2008 ZOË GONZALEZ, RYNE Gan 307.47 SI DYSSOMNIA NOS 03/09/2008 ZOË PHD, RYNE Gan 307.47 SI DYSSOMNIA NOS 03/09/2008 ZOË GONZALEZ, RYNE Gan 307.47 SI DYSSOMNIA NOS 03/09/2008 ZOË GONZALEZ, RYNE Gan 307.47 SI DYSSOMNIA NOS 03/09/2008 ZOË GONZALEZ, RYNE Gan 307.47 SI DYSSOMNIA NOS 03/09/2008 ZOË GONZALEZ, RYNE Gan 307.47 SI DYSSOMNIA NOS 03/09/2008 ZOË GONZALEZ, RYNE Gan 307.47 SI DYSSOMNIA NOS 03/09/2008 JOSSIE TADEO 307.47 SI DYSSOMNIA NOS 03/09/2008 JOSSIE TADEO 307.47 SI DYSSOMNIA NOS 03/09/2008 ZOË GONZALEZ, RYNE Gan 307.47 SI DYSSOMNIA NOS 03/09/2008 JOSSIE TADEO 307.47 SI DYSSOMNIA NOS 05/01/2008 EN PEARSON DO 356.9 UNSPECIFIED IDIOPATHIC PERIPHERAL NEUROPATHY 05/01/2008 356.9 UNSPECIFIED IDIOPATHIC PERIPHERAL NEUROPATHY 05/01/2008 ZOË GONZALEZ, RYNE Gan 356.9 UNSPECIFIED IDIOPATHIC PERIPHERAL NEUROPATHY 05/01/2008 MICHEL SETH EN F 356.9 UNSPECIFIED IDIOPATHIC PERIPHERAL NEUROPATHY 05/01/2008 RYNE CAMP PHD 356.9 UNSPECIFIED IDIOPATHIC PERIPHERAL NEUROPATHY 05/01/2008 356.9 UNSPECIFIED IDIOPATHIC PERIPHERAL NEUROPATHY 05/01/2008 356.9 UNSPECIFIED IDIOPATHIC PERIPHERAL NEUROPATHY 05/01/2008 356.9 UNSPECIFIED IDIOPATHIC PERIPHERAL NEUROPATHY 05/01/2008 356.9 UNSPECIFIED IDIOPATHIC PERIPHERAL NEUROPATHY 05/01/2008 356.9 UNSPECIFIED IDIOPATHIC PERIPHERAL NEUROPATHY 05/01/2008 356.9 UNSPECIFIED IDIOPATHIC PERIPHERAL NEUROPATHY 05/01/2008 356.9 UNSPECIFIED IDIOPATHIC PERIPHERAL NEUROPATHY 05/01/2008 RYNE CAMP PHD 356.9 UNSPECIFIED IDIOPATHIC PERIPHERAL NEUROPATHY 05/01/2008 RYNE CAMP PHD 356.9 UNSPECIFIED IDIOPATHIC PERIPHERAL NEUROPATHY 05/01/2008 YASSINE ADAM APRN 356.9 UNSPECIFIED IDIOPATHIC PERIPHERAL NEUROPATHY 05/01/2008 RYNE CAMP PHD 356.9 UNSPECIFIED IDIOPATHIC PERIPHERAL NEUROPATHY 05/01/2008 RYNE CAMP PHD 356.9 UNSPECIFIED IDIOPATHIC PERIPHERAL NEUROPATHY 05/01/2008 RYNE CAMP PHD 356.9 UNSPECIFIED IDIOPATHIC PERIPHERAL NEUROPATHY 05/01/2008 RYNE CAMP PHD 356.9 UNSPECIFIED IDIOPATHIC PERIPHERAL NEUROPATHY 05/01/2008 RYNE CAMP PHD 356.9 UNSPECIFIED IDIOPATHIC PERIPHERAL NEUROPATHY 05/01/2008 YASSINE ADAM APRN 356.9 UNSPECIFIED IDIOPATHIC PERIPHERAL NEUROPATHY 05/01/2008 RYNE CAMP PHD 356.9 UNSPECIFIED IDIOPATHIC PERIPHERAL NEUROPATHY 05/01/2008 YASSINE ADAM APRN 356.9 UNSPECIFIED IDIOPATHIC PERIPHERAL NEUROPATHY 05/01/2008 RYNE CAMP PHD 356.9 UNSPECIFIED IDIOPATHIC PERIPHERAL NEUROPATHY 05/01/2008 RYNE CAMP PHD 356.9 UNSPECIFIED IDIOPATHIC PERIPHERAL NEUROPATHY 05/01/2008 YASSINE ADAM APRN 356.9 UNSPECIFIED IDIOPATHIC PERIPHERAL NEUROPATHY 05/01/2008 RYNE CAMP PHD 356.9 UNSPECIFIED IDIOPATHIC PERIPHERAL NEUROPATHY 05/01/2008 RYNE CAMP PHD 356.9 UNSPECIFIED IDIOPATHIC PERIPHERAL NEUROPATHY 05/01/2008 YASSINE ADAM APRN 356.9 UNSPECIFIED IDIOPATHIC PERIPHERAL NEUROPATHY 05/01/2008 RYNE CAMP PHD 356.9 UNSPECIFIED IDIOPATHIC PERIPHERAL NEUROPATHY 05/01/2008 RYNE CAMP PHD 356.9 UNSPECIFIED IDIOPATHIC PERIPHERAL NEUROPATHY 05/01/2008 RYNE CAMP PHD 356.9 UNSPECIFIED IDIOPATHIC PERIPHERAL NEUROPATHY 05/01/2008 RYNE CAMP PHD 356.9 UNSPECIFIED IDIOPATHIC PERIPHERAL NEUROPATHY 05/01/2008 RYNE CAMP PHD 356.9 UNSPECIFIED IDIOPATHIC PERIPHERAL NEUROPATHY 05/01/2008 RYNE CAMP PHD 356.9 UNSPECIFIED IDIOPATHIC PERIPHERAL NEUROPATHY 05/01/2008 RYNE CAMP PHD 356.9 UNSPECIFIED IDIOPATHIC PERIPHERAL NEUROPATHY 05/01/2008 RYNE CAMP PHD 356.9 UNSPECIFIED IDIOPATHIC PERIPHERAL NEUROPATHY 05/01/2008 RYNE CAMP PHD 356.9 UNSPECIFIED IDIOPATHIC PERIPHERAL NEUROPATHY 05/01/2008 RYNE CAMP PHD 356.9 UNSPECIFIED IDIOPATHIC PERIPHERAL NEUROPATHY 05/01/2008 JOSSIE TADEO 356.9 UNSPECIFIED IDIOPATHIC PERIPHERAL NEUROPATHY 05/01/2008 JOSSIE TADEO M 356.9 UNSPECIFIED IDIOPATHIC PERIPHERAL NEUROPATHY 05/01/2008 RYNE CAMP PHD 356.9 UNSPECIFIED IDIOPATHIC PERIPHERAL NEUROPATHY 05/01/2008 JOSSIE TADEO 356.9 UNSPECIFIED IDIOPATHIC PERIPHERAL NEUROPATHY 09/20/2008 EN PEARSON DO 300.00 AN ANXIETY UNSPEC 09/20/2008 300.00 AN ANXIETY UNSPEC 09/20/2008 RYNE CAMP PHD 300.00 AN ANXIETY UNSPEC 09/20/2008 EN PEARSON DO 300.00 AN ANXIETY UNSPEC 09/20/2008 RYNE CAMP PHD 300.00 AN ANXIETY UNSPEC 09/20/2008 300.00 AN ANXIETY UNSPEC 09/20/2008 300.00 AN ANXIETY UNSPEC 09/20/2008 300.00 AN ANXIETY UNSPEC 09/20/2008 300.00 AN ANXIETY UNSPEC 09/20/2008 300.00 AN ANXIETY UNSPEC 09/20/2008 300.00 AN ANXIETY UNSPEC 09/20/2008 300.00 AN ANXIETY UNSPEC 09/20/2008 RYNE CAMP PHD 300.00 AN ANXIETY UNSPEC 09/20/2008 RYNE CAMP PHD 300.00 AN ANXIETY UNSPEC 09/20/2008 JAIR BRADY YASSINE JERNIGAN 300.00 AN ANXIETY UNSPEC 09/20/2008 RYNE CAMP PHD 300.00 AN ANXIETY UNSPEC 09/20/2008 RYNE CAMP PHD 300.00 AN ANXIETY UNSPEC 09/20/2008 RYNE CAMP PHD 300.00 AN ANXIETY UNSPEC 09/20/2008 RYNE CAMP PHD 300.00 AN ANXIETY UNSPEC 09/20/2008 RYNE CAMP PHD 300.00 AN ANXIETY UNSPEC 09/20/2008 ADAM RESEARCH & INSIGHTS EXECUTIVEYASSINE 300.00 AN ANXIETY UNSPEC 09/20/2008 RYNE CAMP PHD 300.00 AN ANXIETY UNSPEC 09/20/2008 ADAM APRNYASSINE 300.00 AN ANXIETY UNSPEC 09/20/2008 RYNE CAMP PHD 300.00 AN ANXIETY UNSPEC 09/20/2008 RYNE CAMP PHD 300.00 AN ANXIETY UNSPEC 09/20/2008 JAIR BRADYYASSINE 300.00 AN ANXIETY UNSPEC 09/20/2008 RYNE CAMP PHD 300.00 AN ANXIETY UNSPEC 09/20/2008 RYNE CAMP PHD 300.00 AN ANXIETY UNSPEC 09/20/2008 JAIR BRADYYASSINE 300.00 AN ANXIETY UNSPEC 09/20/2008 RYNE CAMP PHD 300.00 AN ANXIETY UNSPEC 09/20/2008 RYNE CAMP PHD 300.00 AN ANXIETY UNSPEC 09/20/2008 RYNE CAMP PHD 300.00 AN ANXIETY UNSPEC 09/20/2008 RYNE CAMP PHD 300.00 AN ANXIETY UNSPEC 09/20/2008 RYNE CAMP PHD 300.00 AN ANXIETY UNSPEC 09/20/2008 RYNE CAMP PHD 300.00 AN ANXIETY UNSPEC 09/20/2008 RYNE CAMP PHD 300.00 AN ANXIETY UNSPEC 09/20/2008 RYNE CAMP PHD 300.00 AN ANXIETY UNSPEC 09/20/2008 RYNE CAMP PHD 300.00 AN ANXIETY UNSPEC 09/20/2008 RYNE CAMP PHD 300.00 AN ANXIETY UNSPEC 09/20/2008 JOSSIE TADEO 300.00 AN ANXIETY UNSPEC 09/20/2008 JOSSIE TADEO M 300.00 AN ANXIETY UNSPEC 09/20/2008 RYNE CAMP PHD 300.00 AN ANXIETY UNSPEC 09/20/2008 JOSSIE TADEO M 300.00 AN ANXIETY UNSPEC 10/31/2008 EN PEARSON DO 995.20 UNSPECIFIED ADVERSE EFFECT OF UNSPECIFIED DRUG MEDICINAL AND BIOLOGICAL SUBSTANCE 10/31/2008 EN PEARSON DO E939.9 UNSPECIFIED PSYCHOTROPIC AGENT CAUSING ADVERSE EFFECTS IN THERAPEUTIC USE 10/31/2008 995.20 UNSPECIFIED ADVERSE EFFECT OF UNSPECIFIED DRUG MEDICINAL AND BIOLOGICAL SUBSTANCE 10/31/2008 E939.9 UNSPECIFIED PSYCHOTROPIC AGENT CAUSING ADVERSE EFFECTS IN THERAPEUTIC USE 10/31/2008 RYNE CAMP PHD 995.20 UNSPECIFIED ADVERSE EFFECT OF UNSPECIFIED DRUG MEDICINAL AND BIOLOGICAL SUBSTANCE 10/31/2008 RYNE CAMP PHD E939.9 UNSPECIFIED PSYCHOTROPIC AGENT CAUSING ADVERSE EFFECTS IN THERAPEUTIC USE 10/31/2008 EN PEARSON DO 995.20 UNSPECIFIED ADVERSE EFFECT OF UNSPECIFIED DRUG MEDICINAL AND BIOLOGICAL SUBSTANCE 10/31/2008 EN PEARSON DO F E939.9 UNSPECIFIED PSYCHOTROPIC AGENT CAUSING ADVERSE EFFECTS IN THERAPEUTIC USE 10/31/2008 RYNE CAMP PHD 995.20 UNSPECIFIED ADVERSE EFFECT OF UNSPECIFIED DRUG MEDICINAL AND BIOLOGICAL SUBSTANCE 10/31/2008 RYNE CAMP PHD E939.9 UNSPECIFIED PSYCHOTROPIC AGENT CAUSING ADVERSE EFFECTS IN THERAPEUTIC USE 10/31/2008 995.20 UNSPECIFIED ADVERSE EFFECT OF UNSPECIFIED DRUG MEDICINAL AND BIOLOGICAL SUBSTANCE 10/31/2008 E939.9 UNSPECIFIED PSYCHOTROPIC AGENT CAUSING ADVERSE EFFECTS IN THERAPEUTIC USE 10/31/2008 995.20 UNSPECIFIED ADVERSE EFFECT OF UNSPECIFIED DRUG MEDICINAL AND BIOLOGICAL SUBSTANCE 10/31/2008 E939.9 UNSPECIFIED PSYCHOTROPIC AGENT CAUSING ADVERSE EFFECTS IN THERAPEUTIC USE 10/31/2008 995.20 UNSPECIFIED ADVERSE EFFECT OF UNSPECIFIED DRUG MEDICINAL AND BIOLOGICAL SUBSTANCE 10/31/2008 E939.9 UNSPECIFIED PSYCHOTROPIC AGENT CAUSING ADVERSE EFFECTS IN THERAPEUTIC USE 10/31/2008 995.20 UNSPECIFIED ADVERSE EFFECT OF UNSPECIFIED DRUG MEDICINAL AND BIOLOGICAL SUBSTANCE 10/31/2008 E939.9 UNSPECIFIED PSYCHOTROPIC AGENT CAUSING ADVERSE EFFECTS IN THERAPEUTIC USE 10/31/2008 995.20 UNSPECIFIED ADVERSE EFFECT OF UNSPECIFIED DRUG MEDICINAL AND BIOLOGICAL SUBSTANCE 10/31/2008 E939.9 UNSPECIFIED PSYCHOTROPIC AGENT CAUSING ADVERSE EFFECTS IN THERAPEUTIC USE 10/31/2008 995.20 UNSPECIFIED ADVERSE EFFECT OF UNSPECIFIED DRUG MEDICINAL AND BIOLOGICAL SUBSTANCE 10/31/2008 E939.9 UNSPECIFIED PSYCHOTROPIC AGENT CAUSING ADVERSE EFFECTS IN THERAPEUTIC USE 10/31/2008 995.20 UNSPECIFIED ADVERSE EFFECT OF UNSPECIFIED DRUG MEDICINAL AND BIOLOGICAL SUBSTANCE 10/31/2008 E939.9 UNSPECIFIED PSYCHOTROPIC AGENT CAUSING ADVERSE EFFECTS IN THERAPEUTIC USE 10/31/2008 RYNE CAMP PHD 995.20 UNSPECIFIED ADVERSE EFFECT OF UNSPECIFIED DRUG MEDICINAL AND BIOLOGICAL SUBSTANCE 10/31/2008 RYNE CAMP PHD E939.9 UNSPECIFIED PSYCHOTROPIC AGENT CAUSING ADVERSE EFFECTS IN THERAPEUTIC USE 10/31/2008 RYNE CAMP PHD 995.20 UNSPECIFIED ADVERSE EFFECT OF UNSPECIFIED DRUG MEDICINAL AND BIOLOGICAL SUBSTANCE 10/31/2008 RYNE CAMP PHD E939.9 UNSPECIFIED PSYCHOTROPIC AGENT CAUSING ADVERSE EFFECTS IN THERAPEUTIC USE 10/31/2008 JAIR BRADY YASSINE RUEDAH 995.20 UNSPECIFIED ADVERSE EFFECT OF UNSPECIFIED DRUG MEDICINAL AND BIOLOGICAL SUBSTANCE 10/31/2008 JAIR BRADY YASSINE RERE E939.9 UNSPECIFIED PSYCHOTROPIC AGENT CAUSING ADVERSE EFFECTS IN THERAPEUTIC USE 10/31/2008 RYNE CAMP PHD 995.20 UNSPECIFIED ADVERSE EFFECT OF UNSPECIFIED DRUG MEDICINAL AND BIOLOGICAL SUBSTANCE 10/31/2008 RYNE CAMP PHD E939.9 UNSPECIFIED PSYCHOTROPIC AGENT CAUSING ADVERSE EFFECTS IN THERAPEUTIC USE 10/31/2008 RYNE CAMP PHD 995.20 UNSPECIFIED ADVERSE EFFECT OF UNSPECIFIED DRUG MEDICINAL AND BIOLOGICAL SUBSTANCE 10/31/2008 RYNE CAMP PHD E939.9 UNSPECIFIED PSYCHOTROPIC AGENT CAUSING ADVERSE EFFECTS IN THERAPEUTIC USE 10/31/2008 RYNE CAMP PHD 995.20 UNSPECIFIED ADVERSE EFFECT OF UNSPECIFIED DRUG MEDICINAL AND BIOLOGICAL SUBSTANCE 10/31/2008 RYNE CAMP PHD E939.9 UNSPECIFIED PSYCHOTROPIC AGENT CAUSING ADVERSE EFFECTS IN THERAPEUTIC USE 10/31/2008 RYNE CAMP PHD 995.20 UNSPECIFIED ADVERSE EFFECT OF UNSPECIFIED DRUG MEDICINAL AND BIOLOGICAL SUBSTANCE 10/31/2008 RYNE CAMP PHD E939.9 UNSPECIFIED PSYCHOTROPIC AGENT CAUSING ADVERSE EFFECTS IN THERAPEUTIC USE 10/31/2008 RYNE CAMP PHD 995.20 UNSPECIFIED ADVERSE EFFECT OF UNSPECIFIED DRUG MEDICINAL AND BIOLOGICAL SUBSTANCE 10/31/2008 RYNE CAMP PHD E939.9 UNSPECIFIED PSYCHOTROPIC AGENT CAUSING ADVERSE EFFECTS IN THERAPEUTIC USE 10/31/2008 JAIR BRADY YASSINE RERE 995.20 UNSPECIFIED ADVERSE EFFECT OF UNSPECIFIED DRUG MEDICINAL AND BIOLOGICAL SUBSTANCE 10/31/2008 JAIR BRADY YASSINE RERE E939.9 UNSPECIFIED PSYCHOTROPIC AGENT CAUSING ADVERSE EFFECTS IN THERAPEUTIC USE 10/31/2008 RYNE CAMP PHD 995.20 UNSPECIFIED ADVERSE EFFECT OF UNSPECIFIED DRUG MEDICINAL AND BIOLOGICAL SUBSTANCE 10/31/2008 RYNE CAMP PHD E939.9 UNSPECIFIED PSYCHOTROPIC AGENT CAUSING ADVERSE EFFECTS IN THERAPEUTIC USE 10/31/2008 JAIR BRADYYASSINEH 995.20 UNSPECIFIED ADVERSE EFFECT OF UNSPECIFIED DRUG MEDICINAL AND BIOLOGICAL SUBSTANCE 10/31/2008 JAIR BRADYYASSINEH E939.9 UNSPECIFIED PSYCHOTROPIC AGENT CAUSING ADVERSE EFFECTS IN THERAPEUTIC USE 10/31/2008 RYNE CAMP PHD 995.20 UNSPECIFIED ADVERSE EFFECT OF UNSPECIFIED DRUG MEDICINAL AND BIOLOGICAL SUBSTANCE 10/31/2008 RYNE CAMP PHD E939.9 UNSPECIFIED PSYCHOTROPIC AGENT CAUSING ADVERSE EFFECTS IN THERAPEUTIC USE 10/31/2008 RYNE CAMP PHD 995.20 UNSPECIFIED ADVERSE EFFECT OF UNSPECIFIED DRUG MEDICINAL AND BIOLOGICAL SUBSTANCE 10/31/2008 RYNE CAMP PHD E939.9 UNSPECIFIED PSYCHOTROPIC AGENT CAUSING ADVERSE EFFECTS IN THERAPEUTIC USE 10/31/2008 JAIR BRADY YASSINE RERE 995.20 UNSPECIFIED ADVERSE EFFECT OF UNSPECIFIED DRUG MEDICINAL AND BIOLOGICAL SUBSTANCE 10/31/2008 JAIR BRADY YASSINE RERE E939.9 UNSPECIFIED PSYCHOTROPIC AGENT CAUSING ADVERSE EFFECTS IN THERAPEUTIC USE 10/31/2008 RYNE CAMP PHD 995.20 UNSPECIFIED ADVERSE EFFECT OF UNSPECIFIED DRUG MEDICINAL AND BIOLOGICAL SUBSTANCE 10/31/2008 RYNE CAMP PHD E939.9 UNSPECIFIED PSYCHOTROPIC AGENT CAUSING ADVERSE EFFECTS IN THERAPEUTIC USE 10/31/2008 RYNE CAMP PHD 995.20 UNSPECIFIED ADVERSE EFFECT OF UNSPECIFIED DRUG MEDICINAL AND BIOLOGICAL SUBSTANCE 10/31/2008 RYNE CAMP PHD E939.9 UNSPECIFIED PSYCHOTROPIC AGENT CAUSING ADVERSE EFFECTS IN THERAPEUTIC USE 10/31/2008 JAIR BRADY YASSINE RERE 995.20 UNSPECIFIED ADVERSE EFFECT OF UNSPECIFIED DRUG MEDICINAL AND BIOLOGICAL SUBSTANCE 10/31/2008 JAIR BRADY YASSINE RERE E939.9 UNSPECIFIED PSYCHOTROPIC AGENT CAUSING ADVERSE EFFECTS IN THERAPEUTIC USE 10/31/2008 RYNE CAMP PHD 995.20 UNSPECIFIED ADVERSE EFFECT OF UNSPECIFIED DRUG MEDICINAL AND BIOLOGICAL SUBSTANCE 10/31/2008 RYNE CAMP PHD E939.9 UNSPECIFIED PSYCHOTROPIC AGENT CAUSING ADVERSE EFFECTS IN THERAPEUTIC USE 10/31/2008 RYNE CAMP PHD 995.20 UNSPECIFIED ADVERSE EFFECT OF UNSPECIFIED DRUG MEDICINAL AND BIOLOGICAL SUBSTANCE 10/31/2008 RYNE CAMP PHD E939.9 UNSPECIFIED PSYCHOTROPIC AGENT CAUSING ADVERSE EFFECTS IN THERAPEUTIC USE 10/31/2008 RYNE CAMP PHD 995.20 UNSPECIFIED ADVERSE EFFECT OF UNSPECIFIED DRUG MEDICINAL AND BIOLOGICAL SUBSTANCE 10/31/2008 RYNE CAMP PHD E939.9 UNSPECIFIED PSYCHOTROPIC AGENT CAUSING ADVERSE EFFECTS IN THERAPEUTIC USE 10/31/2008 RYNE CAMP PHD 995.20 UNSPECIFIED ADVERSE EFFECT OF UNSPECIFIED DRUG MEDICINAL AND BIOLOGICAL SUBSTANCE 10/31/2008 RYNE CAMP PHD E939.9 UNSPECIFIED PSYCHOTROPIC AGENT CAUSING ADVERSE EFFECTS IN THERAPEUTIC USE 10/31/2008 RYNE CAMP PHD 995.20 UNSPECIFIED ADVERSE EFFECT OF UNSPECIFIED DRUG MEDICINAL AND BIOLOGICAL SUBSTANCE 10/31/2008 RYNE CAMP PHD E939.9 UNSPECIFIED PSYCHOTROPIC AGENT CAUSING ADVERSE EFFECTS IN THERAPEUTIC USE 10/31/2008 RYNE CAMP PHD 995.20 UNSPECIFIED ADVERSE EFFECT OF UNSPECIFIED DRUG MEDICINAL AND BIOLOGICAL SUBSTANCE 10/31/2008 RYNE CAMP PHD E939.9 UNSPECIFIED PSYCHOTROPIC AGENT CAUSING ADVERSE EFFECTS IN THERAPEUTIC USE 10/31/2008 RYNE CAMP PHD 995.20 UNSPECIFIED ADVERSE EFFECT OF UNSPECIFIED DRUG MEDICINAL AND BIOLOGICAL SUBSTANCE 10/31/2008 RYNE CAMP PHD E939.9 UNSPECIFIED PSYCHOTROPIC AGENT CAUSING ADVERSE EFFECTS IN THERAPEUTIC USE 10/31/2008 RYNE CAMP PHD 995.20 UNSPECIFIED ADVERSE EFFECT OF UNSPECIFIED DRUG MEDICINAL AND BIOLOGICAL SUBSTANCE 10/31/2008 RYNE CAMP PHD E939.9 UNSPECIFIED PSYCHOTROPIC AGENT CAUSING ADVERSE EFFECTS IN THERAPEUTIC USE 10/31/2008 RYNE CAMP PHD 995.20 UNSPECIFIED ADVERSE EFFECT OF UNSPECIFIED DRUG MEDICINAL AND BIOLOGICAL SUBSTANCE 10/31/2008 RYNE CAMP PHD E939.9 UNSPECIFIED PSYCHOTROPIC AGENT CAUSING ADVERSE EFFECTS IN THERAPEUTIC USE 10/31/2008 RYNE CAMP PHD 995.20 UNSPECIFIED ADVERSE EFFECT OF UNSPECIFIED DRUG MEDICINAL AND BIOLOGICAL SUBSTANCE 10/31/2008 RYNE CAMP PHD E939.9 UNSPECIFIED PSYCHOTROPIC AGENT CAUSING ADVERSE EFFECTS IN THERAPEUTIC USE 10/31/2008 JOSSIE TADEO 995.20 UNSPECIFIED ADVERSE EFFECT OF UNSPECIFIED DRUG MEDICINAL AND BIOLOGICAL SUBSTANCE 10/31/2008 JOSSIE TADEO E939.9 UNSPECIFIED PSYCHOTROPIC AGENT CAUSING ADVERSE EFFECTS IN THERAPEUTIC USE 10/31/2008 JOSSIE TADEO 995.20 UNSPECIFIED ADVERSE EFFECT OF UNSPECIFIED DRUG MEDICINAL AND BIOLOGICAL SUBSTANCE 10/31/2008 JOSSIE TADEO E939.9 UNSPECIFIED PSYCHOTROPIC AGENT CAUSING ADVERSE EFFECTS IN THERAPEUTIC USE 10/31/2008 RYNE CAMP PHD 995.20 UNSPECIFIED ADVERSE EFFECT OF UNSPECIFIED DRUG MEDICINAL AND BIOLOGICAL SUBSTANCE 10/31/2008 RYNE CAMP PHD E939.9 UNSPECIFIED PSYCHOTROPIC AGENT CAUSING ADVERSE EFFECTS IN THERAPEUTIC USE 10/31/2008 JOSSIE TADEO 995.20 UNSPECIFIED ADVERSE EFFECT OF UNSPECIFIED DRUG MEDICINAL AND BIOLOGICAL SUBSTANCE 10/31/2008 JOSSIE TADEO Dhruv E939.9 UNSPECIFIED PSYCHOTROPIC AGENT CAUSING ADVERSE EFFECTS IN THERAPEUTIC USE 12/16/2008 EN PEARSON DO 294.9 OR COG DIS NOS 12/16/2008 294.9 OR COG DIS NOS 12/16/2008 RYNE CAMP PHD 294.9 OR COG DIS NOS 12/16/2008 EN PEARSON DO 294.9 OR COG DIS NOS 12/16/2008 RYNE CAMP PHD 294.9 OR COG DIS NOS 12/16/2008 294.9 OR COG DIS NOS 12/16/2008 294.9 OR COG DIS NOS 12/16/2008 294.9 OR COG DIS NOS 12/16/2008 294.9 OR COG DIS NOS 12/16/2008 294.9 OR COG DIS NOS 12/16/2008 294.9 OR COG DIS NOS 12/16/2008 294.9 OR COG DIS NOS 12/16/2008 RYNE CAMP PHD 294.9 OR COG DIS NOS 12/16/2008 RYNE CAMP PHD 294.9 OR COG DIS NOS 12/16/2008 YASSINE ADAM APRN 294.9 OR COG DIS NOS 12/16/2008 RYNE CAMP PHD 294.9 OR COG DIS NOS 12/16/2008 RYNE CAMP PHD 294.9 OR COG DIS NOS 12/16/2008 RYNE CAMP PHD 294.9 OR COG DIS NOS 12/16/2008 RYNE ACMP PHD 294.9 OR COG DIS NOS 12/16/2008 RYNE CAMP PHD 294.9 OR COG DIS NOS 12/16/2008 YASSINE ADAM APRN 294.9 OR COG DIS NOS 12/16/2008 RYNE CAMP PHD 294.9 OR COG DIS NOS 12/16/2008 YASSINE ADAM APRN 294.9 OR COG DIS NOS 12/16/2008 ZOË GONZALEZ, RYNE D 294.9 OR COG DIS NOS 12/16/2008 ZOË PHD, RYNE D 294.9 OR COG DIS NOS 12/16/2008 JAIR BRADY YASSINE JERNIGAN 294.9 OR COG DIS NOS 12/16/2008 ZOË PHD, RYNE D 294.9 OR COG DIS NOS 12/16/2008 ZOË GONZALEZ, RYNE D 294.9 OR COG DIS NOS 12/16/2008 JAIR BRADY YASSINE RUEDAH 294.9 OR COG DIS NOS 12/16/2008 ZOË PHD, RYNE D 294.9 OR COG DIS NOS 12/16/2008 ZOË PHD, RYNE D 294.9 OR COG DIS NOS 12/16/2008 ZOË PHD, RYNE D 294.9 OR COG DIS NOS 12/16/2008 ZOË PHD, RYNE D 294.9 OR COG DIS NOS 12/16/2008 ZOË PHD, RYNE D 294.9 OR COG DIS NOS 12/16/2008 ZOË PHD, RYNE D 294.9 OR COG DIS NOS 12/16/2008 ZOË PHD, RYNE D 294.9 OR COG DIS NOS 12/16/2008 ZOË PHD, RYNE D 294.9 OR COG DIS NOS 12/16/2008 ZOË PHD, RYNE D 294.9 OR COG DIS NOS 12/16/2008 ZOË PHD, RYNE D 294.9 OR COG DIS NOS 12/16/2008 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, JOSSIE M 294.9 OR COG DIS NOS 12/16/2008 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, JOSSIE M 294.9 OR COG DIS NOS 12/16/2008 ZOË GONZALEZ, RYNE D 294.9 OR COG DIS NOS 12/16/2008 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, JOSSIE M 294.9 OR COG DIS NOS 11/15/2009 EN PEARSON DO 292.89 OTHER SPECIFIED DRUG-INDUCED MENTAL DISORDERS 11/15/2009 292.89 OTHER SPECIFIED DRUG-INDUCED MENTAL DISORDERS 11/15/2009 RYNE CAMP PHD 292.89 OTHER SPECIFIED DRUG-INDUCED MENTAL DISORDERS 11/15/2009 EN PEARSON DO 292.89 OTHER SPECIFIED DRUG-INDUCED MENTAL DISORDERS 11/15/2009 RYNE CAMP PHD 292.89 OTHER SPECIFIED DRUG-INDUCED MENTAL DISORDERS 11/15/2009 292.89 OTHER SPECIFIED DRUG-INDUCED MENTAL DISORDERS 11/15/2009 292.89 OTHER SPECIFIED DRUG-INDUCED MENTAL DISORDERS 11/15/2009 292.89 OTHER SPECIFIED DRUG-INDUCED MENTAL DISORDERS 11/15/2009 292.89 OTHER SPECIFIED DRUG-INDUCED MENTAL DISORDERS 11/15/2009 292.89 OTHER SPECIFIED DRUG-INDUCED MENTAL DISORDERS 11/15/2009 292.89 OTHER SPECIFIED DRUG-INDUCED MENTAL DISORDERS 11/15/2009 292.89 OTHER SPECIFIED DRUG-INDUCED MENTAL DISORDERS 11/15/2009 RYNE CAMP PHD 292.89 OTHER SPECIFIED DRUG-INDUCED MENTAL DISORDERS 11/15/2009 RYNE CAMP PHD 292.89 OTHER SPECIFIED DRUG-INDUCED MENTAL DISORDERS 11/15/2009 JAIR BRADY YASSINE RERE 292.89 OTHER SPECIFIED DRUG-INDUCED MENTAL DISORDERS 11/15/2009 RYNE CAMP PHD 292.89 OTHER SPECIFIED DRUG-INDUCED MENTAL DISORDERS 11/15/2009 RYNE CAMP PHD 292.89 OTHER SPECIFIED DRUG-INDUCED MENTAL DISORDERS 11/15/2009 RYNE CAMP PHD 292.89 OTHER SPECIFIED DRUG-INDUCED MENTAL DISORDERS 11/15/2009 RYNE CAMP PHD 292.89 OTHER SPECIFIED DRUG-INDUCED MENTAL DISORDERS 11/15/2009 RYNE CAMP PHD 292.89 OTHER SPECIFIED DRUG-INDUCED MENTAL DISORDERS 11/15/2009 JAIR BRADY YASSINE RERE 292.89 OTHER SPECIFIED DRUG-INDUCED MENTAL DISORDERS 11/15/2009 RYNE CAMP PHD 292.89 OTHER SPECIFIED DRUG-INDUCED MENTAL DISORDERS 11/15/2009 JAIR BRADY YASSINE RERE 292.89 OTHER SPECIFIED DRUG-INDUCED MENTAL DISORDERS 11/15/2009 YRNE CAMP PHD 292.89 OTHER SPECIFIED DRUG-INDUCED MENTAL DISORDERS 11/15/2009 RYNE CAMP PHD 292.89 OTHER SPECIFIED DRUG-INDUCED MENTAL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 SARIA Phelan Ot E11.9 TYPE 2 DIABETES MELLITUS WITHOUT COMPLIC 01/24/2016 ADEBAYO BROOKS, SARAI Phelan Ot N32.81 OVERACTIVE BLADDER 01/24/2016 SARAI FIORE MD Ot N36.42 INTRINSIC SPHINCTER DEFICIENCY (ISD) 01/24/2016 SARAI FIORE MD, Ot N81.10 CYSTOCELE, UNSPECIFIED 01/24/2016 SARAI FIORE MD Ot R32 UNSPECIFIED URINARY INCONTINENCE 01/24/2016 SARAI FIORE MD Ot E11.9 TYPE 2 DIABETES MELLITUS WITHOUT COMPLIC 01/24/2016 SARAI FIORE MD Ot N32.81 OVERACTIVE BLADDER 01/24/2016 SARAI FIORE MD Ot N36.42 INTRINSIC SPHINCTER DEFICIENCY (ISD) 01/24/2016 SARAI FIORE MD Ot N81.10 CYSTOCELE, UNSPECIFIED 01/24/2016 SARAI FIORE MD Ot R32 UNSPECIFIED URINARY INCONTINENCE 01/25/2016 SARAI FIORE MD Ot E11.9 TYPE 2 DIABETES MELLITUS WITHOUT COMPLIC 01/25/2016 SARAI FIORE MD Ot N32.81 OVERACTIVE BLADDER 01/25/2016 SARAI FIORE MD, Ot N36.42 INTRINSIC SPHINCTER DEFICIENCY (ISD) 01/25/2016 SARAI FIORE MD, Ot N81.10 CYSTOCELE, UNSPECIFIED 01/25/2016 SARAI FIORE MD Ot R32 UNSPECIFIED URINARY INCONTINENCE 01/29/2016 SARAI FOIRE MD Ot E11.9 TYPE 2 DIABETES MELLITUS WITHOUT COMPLIC 01/29/2016 SARAI FIORE MD Ot N32.81 OVERACTIVE BLADDER 01/29/2016 ADEBAYO BROOKS, SARAI Phelan Ot N36.42 INTRINSIC SPHINCTER DEFICIENCY (ISD) 01/29/2016 SARAI FIORE MD Ot N81.10 CYSTOCELE, UNSPECIFIED 01/29/2016 SARAI FIORE MD Ot R32 UNSPECIFIED URINARY INCONTINENCE 03/11/2016 SARAI FIORE MD Ot K59.00 CONSTIPATION, UNSPECIFIED 03/11/2016 SARAI FIORE MD Ot N20.0 CALCULUS OF KIDNEY 03/11/2016 SARAI FIORE MD Ot N20.0 CALCULUS OF KIDNEY 03/11/2016 Ot 780.79 OTH MALAISE FATIGUE 03/11/2016 Ot 786.50 CHEST PAIN NOS 03/11/2016 Ot V58.67 LONG-TERM (CURRENT) USE OF INSULIN 03/11/2016 Ot V58.69 OTH MED,LT,CURRENT USE 03/11/2016 Ot 611.72 LUMP OR MASS IN BREAST 03/11/2016 RICK STAHL MD Ot 625.8 FEM GENITAL SYMPTOMS NEC 03/11/2016 RICK STAHL MD Ot 627.1 POSTMENOPAUSAL BLEEDING 03/11/2016 RICK STAHL MD Ot V72.84 EXAM PRE-OPERATIVE NOS 03/11/2016 RICK STAHL MD Ot V74.8 SCREEN-BACTERIAL DIS NEC 03/11/2016 MARÍA MARRERO MD Ot V72.84 EXAM PRE-OPERATIVE NOS 03/11/2016 MARÍA MARRERO MD Ot V72.84 EXAM PRE-OPERATIVE NOS 03/11/2016 ADEBAYO BROOKS, SARAI Phelan Ot 592.0 CALCULUS OF KIDNEY 03/11/2016 MARÍA MARRERO MD Ot Z01.818 ENCOUNTER FOR OTHER PREPROCEDURAL EXAMIN 03/13/2016 RIVKA PAGE DO Ot R41.82 ALTERED MENTAL STATUS, UNSPECIFIED 03/17/2016 RIVKA PAGE DO Ot R41.82 ALTERED MENTAL STATUS, UNSPECIFIED 03/26/2016 RIVKA PAGE DO Ot R41.82 ALTERED MENTAL STATUS, UNSPECIFIED 10/24/2016 Ot 611.72 LUMP OR MASS IN BREAST 10/24/2016 RICK STAHL MD Ot 625.8 FEM GENITAL SYMPTOMS NEC 10/24/2016 RICK STAHL MD Ot 627.1 POSTMENOPAUSAL BLEEDING 10/24/2016 RICK STAHL MD Ot V72.84 EXAM PRE-OPERATIVE NOS 10/24/2016 RICK STAHL MD Ot V74.8 SCREEN-BACTERIAL DIS NEC 10/24/2016 MARÍA MARRERO MD Ot V72.84 EXAM PRE-OPERATIVE NOS 10/24/2016 MARÍA MARRERO MD Ot V72.84 EXAM PRE-OPERATIVE NOS 10/24/2016 SARAI FIORE MD Ot 592.0 CALCULUS OF KIDNEY 10/24/2016 MARÍA MARRERO MD Ot Z01.818 ENCOUNTER FOR OTHER PREPROCEDURAL EXAMIN 10/24/2016 RIVKA PAGE DO Ot R41.82 ALTERED MENTAL STATUS, UNSPECIFIED 10/24/2016 Ot 611.72 LUMP OR MASS IN BREAST 10/24/2016 RICK STAHL MD Ot 625.8 FEM GENITAL SYMPTOMS NEC 10/24/2016 RICK STAHL MD Ot 627.1 POSTMENOPAUSAL BLEEDING 10/24/2016 RICK STAHL MD Ot V72.84 EXAM PRE-OPERATIVE NOS 10/24/2016 RICK STAHL MD Ot V74.8 SCREEN-BACTERIAL DIS NEC 10/24/2016 MARÍA MARRERO MD Ot V72.84 EXAM PRE-OPERATIVE NOS 10/24/2016 MARÍA MARRERO MD Ot V72.84 EXAM PRE-OPERATIVE NOS 10/24/2016 SARAI FIORE MD Ot 592.0 CALCULUS OF KIDNEY 10/24/2016 MARÍA MARRERO MD Ot Z01.818 ENCOUNTER FOR OTHER PREPROCEDURAL EXAMIN 10/24/2016 RIVKA PAGE DO Ot R41.82 ALTERED MENTAL STATUS, UNSPECIFIED 11/10/2016 Ot 611.72 LUMP OR MASS IN BREAST 11/10/2016 RICK STAHL MD Ot 625.8 FEM GENITAL SYMPTOMS NEC 11/10/2016 RICK STAHL MD Ot 627.1 POSTMENOPAUSAL BLEEDING 11/10/2016 RICK STAHL MD Ot V72.84 EXAM PRE-OPERATIVE NOS 11/10/2016 MARIBETH BROOKS, RICK Stephen Ot V74.8 SCREEN-BACTERIAL DIS NEC 11/10/2016 MARÍA MARRERO MD Ot V72.84 EXAM PRE-OPERATIVE NOS 11/10/2016 MARÍA MARRERO MD Ot V72.84 EXAM PRE-OPERATIVE NOS 11/10/2016 ADEBAYO BROOKS, SARAI Phelan Ot 592.0 CALCULUS OF KIDNEY 11/10/2016 MARÍA MARRERO MD Ot Z01.818 ENCOUNTER FOR OTHER PREPROCEDURAL EXAMIN 11/10/2016 RIVKA PAGE DO Ot R41.82 ALTERED MENTAL STATUS, UNSPECIFIED 11/10/2016 TIN PAGE TOLL [employer]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 Ot E04.1 NONTOXIC SINGLE THYROID NODULE 11/10/2016 TIN PAGE [employer]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 Ot R59.0 LOCALIZED ENLARGED LYMPH NODES 11/14/2016 TIN PAGE [employer]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 Ot E04.1 NONTOXIC SINGLE THYROID NODULE 11/14/2016 TIN PAGEP Ot R59.0 LOCALIZED ENLARGED LYMPH NODES 11/26/2016 RIVKA PAGE DO Ot R59.1 GENERALIZED ENLARGED LYMPH NODES 02/03/2017 ADEBAYO BROOKS, SARAI Phelan Ot K59.00 CONSTIPATION, UNSPECIFIED 02/03/2017 ADEBAYO BROOKS, SARAI Phelan Ot N20.0 CALCULUS OF KIDNEY 02/03/2017 ADEBAYO BROOKS, SARAI Phelan Ot N20.0 CALCULUS OF KIDNEY 02/26/2017 ADEBAYO BROOKS, SARAI Phelan Ot K59.00 CONSTIPATION, UNSPECIFIED 02/26/2017 ADEBAYO BROOKS, SARAI Phelan Ot N20.0 CALCULUS OF KIDNEY 02/26/2017 ADEBAYO BROOKS, SARAI Phelan Ot N20.0 CALCULUS OF KIDNEY 02/26/2017 RIVKA PAGE DO Ot R25.1 TREMOR, UNSPECIFIED 02/26/2017 RIVKA PAGE DO Ot R53.1 WEAKNESS 02/26/2017 Ot 611.72 LUMP OR MASS IN BREAST 02/26/2017 RICK STAHL MD Ot 625.8 FEM GENITAL SYMPTOMS NEC 02/26/2017 RICK STAHL MD Ot 627.1 POSTMENOPAUSAL BLEEDING 02/26/2017 RICK STAHL MD Ot V72.84 EXAM PRE-OPERATIVE NOS 02/26/2017 RICK STAHL MD Ot V74.8 SCREEN-BACTERIAL DIS NEC 02/26/2017 MARÍA MARRERO MD Ot V72.84 EXAM PRE-OPERATIVE NOS 02/26/2017 MARÍA MARRERO MD Ot V72.84 EXAM PRE-OPERATIVE NOS 02/26/2017 SARAI FIORE MD Ot 592.0 CALCULUS OF KIDNEY 02/26/2017 MARÍA MARRERO MD Ot Z01.818 ENCOUNTER FOR OTHER PREPROCEDURAL EXAMIN 02/26/2017 RIVKA PAGE DO Ot R41.82 ALTERED MENTAL STATUS, UNSPECIFIED 02/26/2017 TIN PAGE [employer]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 Ot E04.1 NONTOXIC SINGLE THYROID NODULE 02/26/2017 TIN PAGE Ot R59.0 LOCALIZED ENLARGED LYMPH NODES 02/26/2017 RIVKA PAGE DO Ot R59.1 GENERALIZED ENLARGED LYMPH NODES 02/27/2017 Ot 611.72 LUMP OR MASS IN BREAST 02/27/2017 RICK STAHL MD Ot 625.8 FEM GENITAL SYMPTOMS NEC 02/27/2017 RICK STAHL MD Ot 627.1 POSTMENOPAUSAL BLEEDING 02/27/2017 RICK STAHL MD Ot V72.84 EXAM PRE-OPERATIVE NOS 02/27/2017 RICK STAHL MD Ot V74.8 SCREEN-BACTERIAL DIS NEC 02/27/2017 MARÍA MARRERO MD Ot V72.84 EXAM PRE-OPERATIVE NOS 02/27/2017 MARÍA MARRERO MD Ot V72.84 EXAM PRE-OPERATIVE NOS 02/27/2017 SARAI FIORE MD Ot 592.0 CALCULUS OF KIDNEY 02/27/2017 MARÍA MARRERO MD Ot Z01.818 ENCOUNTER FOR OTHER PREPROCEDURAL EXAMIN 02/27/2017 RIVKA PAGE DO Ot R41.82 ALTERED MENTAL STATUS, UNSPECIFIED 02/27/2017 TIN PAGEP Ot E04.1 NONTOXIC SINGLE THYROID NODULE 02/27/2017 TIN PAGE Ot R59.0 LOCALIZED ENLARGED LYMPH NODES 02/27/2017 RIVKA PAGE DO Ot R59.1 GENERALIZED ENLARGED LYMPH NODES Procedures Code Description [place] [address] INDIV PSYTX 45/50 MIN 05/10/2012 02894 INDIV PSYTX 45/50 MIN 06/04/2012 32938 PSYCH PHARM MGMT 06/04/2012 56792 INDIV PSYTX 45/50 MIN 06/16/2012 18496 EKG, TRACING (IN-HOUSE) 07/29/2012 11500 ROUTINE VENIPUNCTURE 09/07/2012 35717 GLUCOSE 2012 22615 LIPID PANEL 09/07 33620 PSYTX PT&/FAMILY 45 MINUTES 09/22/2012 09939 PSYTX PT&/FAMILY 45 MINUTES 10/07/2012 41042 PSYTX PT&/FAMILY 45 MINUTES 11/02/2012 28652 PSYTX PT&/FAMILY 45 MINUTES 11/19/2012 90413 PSYTX PT&/FAMILY 45 MINUTES 12/07/2012 91977 PSYTX PT&/FAMILY 45 MINUTES 12/20/2012 81018 PSYTX PT&/FAMILY 45 MINUTES 12/31/2012 44047 PSYTX PT&/FAMILY 30 MINUTES 02/11/2013 05208 PSYTX PT&/FAMILY 30 MINUTES 03/25/2013 21374 PSYTX PT&/FAMILY 30 MINUTES 04/15/2013 66939 PSYTX PT&/FAMILY 45 MINUTES 05/05/2013 83661 PSYTX PT&/FAMILY 45 MINUTES 05/23/2013 74135 PSYTX PT&/FAMILY 30 MINUTES 06/17/2013 68055 PSYTX PT&/FAMILY 45 MINUTES 07/07/2013 35422 PSYTX PT&/FAMILY 45 MINUTES 07/21/2013 35881 PSYTX PT&/FAMILY 45 MINUTES 08/01/2013 80626 PSYTX PT&/FAMILY 45 MINUTES 08/12/2013 49173 PSYTX PT&/FAMILY 45 MINUTES 08/31/2013 03373 PSYTX PT&/FAMILY 45 MINUTES 09/23/2013 03770 PSYTX PT&/FAMILY 45 MINUTES 10/18/2013 26191 PSYTX PT&/FAMILY 45 MINUTES 11/11/2013 75591 PSYTX PT&/FAMILY 45 MINUTES 12/09/2013 46699 PSYTX PT&/FAMILY 45 MINUTES 12/30/2013 23595 PSYTX PT&/FAMILY 45 MINUTES 01/04/2014 43143 PSYTX PT&/FAMILY 45 MINUTES 01/13/2014 53024 PSYTX PT&/FAMILY 30 MINUTES 01/20/2014 43647 PSYTX PT&/FAMILY 30 MINUTES 02/10/2014 08428 PSYTX PT&/FAMILY 45 MINUTES 02/24/2014 78590 PSYTX PT&/FAMILY 30 MINUTES 03/23/2014 93983 PSYTX PT&/FAMILY 45 MINUTES 04/05/2014 87883 PSYTX PT&/FAMILY 45 MINUTES 05/24/2014 05090 PSYTX PT&/FAMILY 45 MINUTES 07/13/2014 56.0 TU REMOV URETER OBSTRUCT 02/07/2015 59.8 URETERAL CATHETERIZATION 02/07/2015 Results Encounters ACCT No. Visit Date/Time Discharge Status Pt. Type Provider Facility Loc./Unit Complaint [id number] 09/06/2014 10:33:00 09/06/2014 23: 59:59 [facility] Outpatient JOSSIE TADEO [id number] 07/13/2014 13:43:00 07/13/2014 23: 59:59 [facility] Outpatient RYNE CAMP PHD [id number] 06/09/2014 12:43:00 06/09/2014 23: 59:59 [facility] Outpatient JOSSIE TADEO [id number] 06/09/2014 12:43:00 06/09/2014 23: 59:59 [facility] Outpatient JOSSIE TADEO [id number] 05/24/2014 13:52:00 05/24/2014 23: 59:59 [facility] Outpatient RYNE CAMP PHD [id number] 04/05/2014 12:49:00 04/05/2014 23: 59:59 RYNE Rascon PHD [id number] 03/09/2014 10:40:00 03/09/2014 23: 59:59 RYNE Rascon PHD [id number] 02/24/2014 10:42:00 02/24/2014 23: 59:59 RYNE Rascon PHD [id number] 02/10/2014 09:45:00 02/10/2014 23: 59:59 [facility] Outpatient RYNE CAMP PHD [id number] 01/20/2014 10:51:00 01/20/2014 23: 59:59 [facility] Outpatient RYNE CAMP PHD [id number] 01/13/2014 10:51:00 01/13/2014 23: 59:59 RYNE Rascon PHD [id number] 01/04/2014 15:51:00 01/04/2014 23: 59:59 [facility] Outpatient RYNE CAMP PHD [id number] 12/30/2013 08:49:00 12/30/2013 23: 59:59 RYNE Rascon PHD [id number] 2013 15:47:00 2013 23: 59:59 RYNE Rascon PHD [id number] 12/02/2013 08:56:00 12/02/2013 23: 59:59 [facility] Outpatient ADAM [employer] EXECUTIVE, YASSINE JERNIGAN [id number] 11/11/2013 12:44:00 11/11/2013 23: 59:59 [facility] Outpatient RYNE CAMP PHD [id number] 10/18/2013 15:38:00 10/18/2013 23: 59:59 [facility] Outpatient RYNE CAMP PHD [id number] 09/30/2013 09:22:00 09/30/2013 23: 59:59 [facility] Outpatient ADAM [employer] INSIGHT[employer] EXECUTIVE, YASSINE JERNIGAN [id number] 09/23/2013 13:44:00 09/23/2013 23: 59:59 RYNE Rascon PHD [id number] 08/31/2013 14:52:00 08/31/2013 23: 59:59 [facility] Outpatient RYNE CAMP PHD [id number] 08/18/2013 15:52:00 08/18/2013 23: 59:59 [facility] Outpatient ADAM [employer] INS[employer] EXECUTIVE, YASSINE JERNIGAN [id number] 08/12/2013 13:09:00 08/12/2013 23: 59:59 [facility] Outpatient RYNE CAMP PHD [id number] 08/01/2013 08:53:00 08/01/2013 23: 59:59 [facility] Outpatient ADAM [employer] EXECUTIVE, YASSINE JERNIGAN [id number] 07/20/2013 13:51:00 07/20/2013 23: 59:59 [facility] Outpatient RYNE CAMP PHD [id number] 07/07/2013 13:59:00 07/07/2013 23: 59:59 [facility] Outpatient RYNE CAMP PHD [id number] 06/16/2013 13:47:00 06/16/2013 23: 59:59 [facility] Outpatient RYNE CAMP PHD [id number] 05/23/2013 12:52:00 05/23/2013 23: 59:59 [facility] Outpatient RYNE CAMP PHD [id number] 04/29/2013 14:56:00 04/29/2013 23: 59:59 [facility] Outpatient RYNE CAMP PHD [id number] 04/25/2013 11:23:00 04/25/2013 23: 59:59 [facility] Outpatient YASSINE ADAM APRN [id number] 04/15/2013 08:02:00 04/15/2013 23: 59:59 [facility] Outpatient RYNE CAMP PHD [id number] 03/24/2013 07:45:00 03/24/2013 23: 59:59 [facility] Outpatient RYNE CAMP PHD [id number] 10/06/2012 13:51:00 10/06/2012 23: 59:59 CLS Outpatient [id number] 09/17/2012 08:47:00 09/17/2012 23: 59:59 NE[facility] Outpatient RYNE CAMP PHD [id number] 07/26/2012 12:20:00 07/26/2012 23: 59:59 CLS Outpatient EN PEARSON DO [id number] 06/16/2012 10:45:00 06/16/2012 23: 59:59 [facility] Outpatient RYNE CAMP PHD [id number] 06/04/2012 12:11:00 06/04/2012 23: 59:59 CLS Outpatient [id number] 05/10/2012 09:47:00 05/10/2012 23: 59:59 NEIL Outpatient EN PEARSON DO [id number] 02/11/2013 07:53:00 Document Registration [id number] 12/31/2012 07:50:00 Document Registration [id number] 12/20/2012 10:51:00 Document Registration [id number] 12/03/2012 08:58:00 Document Registration [id number] 11/18/2012 13:48:00 Document Registration [id number] 10/28/2012 07:59:00 Document Registration [id number] 02/27/2017 17:24:00 2016 18:49:00 DIS Emergency SANTHOSH BROOKS, DARIEL Garrison [facility] ER L HIP PAIN [id number] 02/26/2017 03:34:00 2016 04:40:00 DIS Emergency SANTHOSH BROOKS, DARIEL Garrison [facility] ER LEFT LOWER SIDE,HIP LEG PAIN [id number] 11/10/2016 06:55:00 2016 23:59:59 CLS Outpatient RIVKA PAGE DO [facility] RAD LYMPHADENOPATHY [id number] 10/24/2016 10:48:00 2016 23:59:59 CLS Outpatient TIN PAGE [facility] RAD THYROMEGALY,LYMPHADENOPATHY [id number] 03/11/2016 14:10:00 2015 23:59:59 CLS Outpatient RIVKA PAGE DO [facility] RAD MENTAL STATUS CHANGES [id number] 01/22/2016 07:43:00 2015 10:20:00 DIS Outpatient SARAI FIORE MD [facility] CYSTOCELE [id number] 01/18/2016 05:37:00 2015 11:49:00 DIS Outpatient SARAI FIORE MD [facility] PREOP CYSTOCELE [id number] 01/02/2016 08:03:00 2015 09:29:00 DIS Outpatient RIVKA PAGE DO [facility] REHAB L ARM PAIN [id number] 12/18/2015 05:58:00 2015 10:15:00 DIS Outpatient SARAI FIORE MD [facility] SDC OVER ACTIVE BLADDER [id number] 12/14/2015 08:28:00 2015 09:03:00 DIS Outpatient SARAI FIORE MD [facility] PREOP OVERACTIVE BLADDER [id number] 11/12/2015 09:21:00 2015 10:51:00 DIS Outpatient RIVKA PAGE DO [facility] REHAB GAIT TRAINING [id number] 11/07/2015 13:03:00 2015 23:59:59 CLS Outpatient SARAI FIORE MD [facility] RAD MAREK RENAL STONE [id number] 11/01/2015 13:39:00 2015 23:59:59 CLS Outpatient SARAI FIORE MD [facility] RAD STONES [id number] 04/12/2015 07:23:00 2014 23:59:59 CLS Outpatient MARÍA MARRERO MD [facility] PREOP GERD [id number] 03/02/2015 08:58:00 2014 00:01:00 DIS Outpatient SARAI FIORE MD [facility] LAB STONES [id number] 02/20/2015 13:40:00 2014 23:59:59 CLS Outpatient SARAI FIORE MD [facility] RAD RT URETERAL STONE [id number] 02/03/2015 16:25:00 2014 11:46:00 DIS Inpatient RIVKA PAGE DO [facility] SURGICAL AMS,SEPSIS,R URETEROLITH HEMATURIA,UNCONTROLLED DM [id number] 01/04/2015 06:40:00 2014 09:40:00 DIS Outpatient MARÍA MARRERO MD [facility] GERD [id number] 01/03/2015 06:02:00 2014 23:59:59 CLS Outpatient MARÍA MARRERO MD [facility] PREOP GERD [id number] 11/30/2014 06:46:00 2014 09:45:00 DIS Outpatient MARÍA MARRERO MD [facility] SD ESOPHAGEAL STRICTURE [id number] 11/29/2014 05:45:00 2014 23:59:59 CLS Outpatient MARÍA MARRERO MD [facility] PREOP ESOPHAGEAL STRICTURE [id number] 11/23/2014 13:17:00 2014 18:12:00 DIS Emergency SOFY AVINA APRN [facility] ER POSS FB [id number] 03/18/2013 10:30:00 2012 21:50:00 DIS Outpatient RICK STAHL MD [facility] POST MENOPAUSAL BLEEDING; INTRAUTERINE MASS [id number] 03/14/2013 09:22:00 2012 23:59:59 CLS Outpatient RICK STAHL MD [facility] PREOP POST MENOPAUSAL BLEEDING; INTRAUTERINE MASS [id number] 02/25/2017 08:02:00 ACT Outpatient RIVKA PAGE DO [facility] REHAB PHYSICAL DECONDITIONING [id number] 08/03/2012 09:37:00 Document Registration [id number] 04/23/2011 21:03:00 Document Registration [id number] 03/04/2011 05:57:00 Document Registration [id number] 08/07/2009 13:04:00 Document Registration
== END 2017-02-27 18:49 | disposition home or self-care (01) ==
LOC: EDUNIT# 17:22 → ER 17:24
DX: M70.62 Trochanteric bursitis, left hip (principal); F41.9 Anxiety disorder, unspecified; F32.9 Major depressive disorder, single episode, unspecified; E11.9 Type 2 diabetes mellitus without complications; K21.9 Gastro-esophageal reflux disease without esophagitis; Z87.442 Personal history of urinary calculi; Z90.710 Acquired absence of both cervix and uterus; Z79.4 Long term (current) use of insulin; Z79.84 Long term (current) use of oral hypoglycemic drugs; W18.30XA Fall on same level, unspecified, initial encounter
CPT/HCPCS: 99284

== ENCOUNTER 2017-03-02 00:14 | Emergency (ER) | payer MEDICARE, OTHER ==
[~2017-03-02] VITALS: Ht 160 cm; Wt 76.2 kg
[~2017-03-02 00:14] MED LIST changes: +HYDR-3812 PO; +PRD10T PO
--- NOTE | 2017-03-02 01:56 | ED Hip Pain/Injury ---
General Chief Complaint: Hip/Pelvic Problems Stated Complaint: HIP PAIN Nursing Triage Note: c/o L hip pain, reports was here and given medication for same a few days ago without improvement Source: patient, other Exam Limitations: no limitations History of Present Illness Time seen by provider: 01:47 Initial Comments Patient presents to ER by private conveyance with chief complaint of left bursitis hip pain. She was seen a few days ago in the ER after a fall and x- rayed. X-rays were reviewed and found to be in without osseous fracture. She followed up with her primary care physician Dr. Swann and he diagnosed her with bursitis and gave her a steroid injection. This was 2 days ago. Last night the patient presented to the ER and was seen by a different ER provider who added some hydrocodone as well as prednisone which she has been taking 10 mg 3 times a day and discussed using NSAIDs patient says she's been using all of these things but feels that she is not gotten adequate relief. Patient is not using any creams or ice routinely. She is using heat. She is already in physical therapy for her back per her PCP. Patient reports she been taking the hydrocodone's 2 tablets of the time because she feels that there are very tiny dose and she is taken much bigger doses in the past. She feels that these of helped but are not helping somewhat tonight and she is having a hard time getting to sleep. She says her blood pressure is elevated and her blood sugars of gone up above 300. She has no nausea, vomiting, chills. She walked in. Allergies and Home Medications Allergies Coded Allergies: Nitrofurantoin Macrocrystal (Unverified Allergy, Unknown, RASH, 11/23/14) Penicillins (Unverified Allergy, Unknown, RASH, 11/23/14) Home Medications Aripiprazole 20 Mg Tablet, 20 MG PO DAILY, (Reported) Carbidopa/Levodopa 1 Each Tablet, (Reported) Estradiol 1 Mg Tablet, 1 MG PO DAILY, (Reported) Fluoxetine HCl 40 Mg Capsule, 40 MG PO BID, (Reported) Gabapentin 600 Mg Tablet, 1,200 MG PO DAILY, (Reported) Gemfibrozil 600 Mg Tablet, 600 MG PO BID, (Reported) Hydrochlorothiazide 25 Mg Tablet, 25 MG PO DAILY, (Reported) Hydrocodone/Acetaminophen 1 Each Tablet, 1 EACH PO Q4H PRN for PAIN, #20 Prescribed by: DARIEL AVENDAÑO on 02/27/171830 Insulin Glargine,Hum.rec.anlog 100 Unit/1 Ml Vial, 10 UNIT SQ HS, (Reported) Insulin Lispro 100 Unit/1 Ml Vial, 25 UNIT SQ TIDAC, (Reported) Magnesium Oxide 250 Mg Tablet, 250 MG PO BID, (Reported) Metformin HCl 500 Mg Tablet, (Reported) Omeprazole 40 Mg Capsule.dr, 40 MG PO DAILY, (Reported) Omeprazole 40 Mg Capsule.dr, (Reported) Oxybutynin Chloride 10 Mg Tab.er.24, (Reported) Prednisone 10 Mg Tab, 10 MG PO UD, #18 3 tablets daily for 3 days, then 2 daily for 3 days, then one daily for 3 days Prescribed by: DARIEL AVENDAÑO on 02/27/171830 Ropinirole HCl 2 Mg Tablet, (Reported) Sitagliptin Phos/Metformin Hcl 1 Each Tablet, 1 TAB PO BID, (Reported) Topiramate 100 Mg Tablet, 100 MG PO BID, (Reported) [potassium citrate] , 1,080 MG PO BID WITH MEALS, (Reported) Constitutional: No chills, No diaphoresis, No fever, No malaise EENTM: No ear pain, No blurred vision, No double vision Respiratory: No cough, No short of breath Cardiovascular: No chest pain, No palpitations Gastrointestinal: No abdominal pain, constipation (last bowel movement was 3 days ago), No diarrhea, No nausea, No vomiting Genitourinary: No discharge, No dysuria Musculoskeletal: see HPI Skin: No pruritus, No rash Psychiatric/Neurological: Denies Numbness, Denies Paresthesia Past Bkpnuhs-Cpoqyt-Dwgdff Hx Patient Social History Alcohol Use: Denies Use Recreational Drug Use: No Smoking Status: Never a Smoker 2nd Hand Smoke Exposure: No Recent Foreign Travel: No Contact w/Someone Who Travel: No Recent Infectious Disease Expo: No Recent Hopitalizations: No Immunizations Up To Date Tetanus Booster (TDap): Unknown Seasonal Allergies Seasonal Allergies: Yes Surgeries History of Surgeries: Yes (kidney stone, right breast lesion, macroplastique) Surgeries: Hysterectomy Respiratory History of Respiratory Disorde: No Cardiovascular History of Cardiac Disorders: No Neurological History of Neurological Disord: Yes (Tremors) Reproductive System Hx Reproductive Disorders: No Genitourinary History of Genitourinary Disor: Yes Genitourinary Disorders: Kidney Stones Gastrointestinal History of Gastrointestinal Di: Yes Gastrointestinal Disorders: Gastroesophageal Reflux Musculoskeletal History of Musculoskeletal Dis: Yes (ARTHRITIS) Musculoskeletal Disorders: Arthritis Endocrine History of Endocrine Disorders: Yes Endocrine Disorders: Diabetes, Non-Insulin dep Cancer History of Cancer: No Psychosocial History of Psychiatric Problem: Yes Behavioral Health Disorders: Anxiety, Depression Integumentary History of Skin or Integumenta: No Blood Transfusions History of Blood Disorders: No Adverse Reaction to a Blood Tr: No Family Medical History Significant Family History: No Pertinent Family Hx Physical Exam Vital Signs Vital Sign - Last 12Hours 03/02/17 01:03 Temp 98.0 Pulse 73 Resp 18 B/P (MAP) 194/92 Pulse Ox 98 Capillary Refill : Less Than 3 Seconds General Appearance: No Apparent Distress, WD/WN, Other (somnolent, often stares off into space midsentence) Neck: Full Range of Motion, Normal Inspection, Non Tender, Supple Cardiovascular: Regular Rate, Rhythm, No Edema Respiratory: Chest Non Tender, Lungs Clear, Normal Breath Sounds Gastrointestinal: Normal Bowel Sounds, Non Tender, Soft Back: Normal Inspection, No Vertebral Tenderness Extremity: Normal Capillary Refill, Normal Inspection, No Pedal Edema, Other ( tenderness and induration felt over the greater trochanter of the left lateral femur) Neurologic/Psychiatric: Alert, Oriented x3, Other (patient has difficulty finishing sentences and often stares in to space in the middle of her symptoms. She has to be prompted of what question she was asked multiple times.) Skin: Normal Color, Warm/Dry Progress/Results/Core Measures Results/Orders Vital Signs/I&O Vital Sign - Last 12Hours 03/02/17 01:03 Temp 98.0 Pulse 73 Resp 18 B/P (MAP) 194/92 Pulse Ox 98 Blood Pressure Mean: 126 Progress Note : Time: 01:55 Progress Note Patient appears to have plenty of opiates on board and also sounds that she is getting constipated despite Colace use. We'll recommend she use MiraLAX as well. We'll also add to her regimen ice. She should follow-up with her primary care physician tomorrow for physical therapy for the bursitis if this is not helping. She can also consider chiropractic. I have encouraged her to back off on the steroids as she appears to be having very high blood sugars which will arrest her healing process. If she was given a Depo-Medrol shot then she should be covered with plenty of steroids for the bursa for the next 7-10 days. This will also help with her insomnia. Departure Impression Impression: Primary Impression: Fall Qualified Codes: W19.XXXD - Unspecified fall, subsequent encounter Additional Impression: Hip bursitis, left Qualified Codes: M70.62 - Trochanteric bursitis, left hip Disposition: HOME, SELF-CARE Condition: Stable Departure-Patient Inst. Decision time for Depature: 01:56 Referrals: RIVKA SWANN DO (PCP/Family) Primary Care Physician Patient Instructions: Hip Bursitis (DC) Add. Discharge Instructions: Make sure drinking plenty of fluids and take MiraLAX 1-4 times a day to keep your bowels moving regular as long as you're on the opiates. Go ahead and discontinue the use of the prednisone at this time. Plan to follow up with your primary care physician in the morning and talk to him about further management of your bursitis such as physical therapy. You could also can consider something like chiropractic. It is very important that she continue some NSAIDs such as ibuprofen 800 mg every 8 hours by mouth or Naprosyn or Aleve 2 capsules by mouth twice a day. Take these medicines scheduled [id number] not as needed for the next 2 weeks. For the next 4-5 days he should apply an ice pack over your left hip for 20 minutes every 4-6 hours as needed for pain and swelling. This will probably take several weeks to resolve. All discharge instructions reviewed with patient and/or family. Voiced understanding. Copy Copies To 1: RIVKA SWANN TITUS J Mar 02, 2017 01:56
[2017-03-02 02:01] VITALS: BP 164/84
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
== END 2017-03-02 02:01 | disposition home or self-care (01) ==
LOC: EDUNIT# 00:14 → ER 00:17
DX: M70.72 Other bursitis of hip, left hip (principal); F41.9 Anxiety disorder, unspecified; F32.9 Major depressive disorder, single episode, unspecified; E11.9 Type 2 diabetes mellitus without complications; K21.9 Gastro-esophageal reflux disease without esophagitis; Z87.442 Personal history of urinary calculi; Z79.84 Long term (current) use of oral hypoglycemic drugs; Z79.4 Long term (current) use of insulin; Z90.710 Acquired absence of both cervix and uterus
CPT/HCPCS: 99282

== ENCOUNTER → 2017-03-05 | Outpatient (CLI) | payer MEDICARE, OTHER ==
--- NOTE | 2017-03-05 16:23 | Diagnostic Imaging Report ---
INDICATION: Left hip pain. AP and oblique views of the left hip are obtained. There is some irregularity and osteophyte formation of the acetabulum superiorly. There is enthesopathy of the greater trochanter. There is no acute fracture or acute bony abnormality. There is a soft tissue calcification adjacent to greater trochanter which appears chronic. IMPRESSION: Chronic findings as above with no definite acute finding. Dictated by: Dictated on workstation # [id number]
--- NOTE | 2017-03-05 16:33 | Diagnostic Imaging Report ---
PROCEDURE: CT left lower extremity without contrast. TECHNIQUE: Multiple contiguous axial images were obtained through the left lower extremity without the use of intravenous contrast. Sagittal and coronal reformations were then performed. INDICATION: Intractable left hip pain. COMPARISON: Left hip radiographs of earlier same day. FINDINGS: No acute fracture in the visualized left hemipelvis or proximal left femur. There is some heterotopic ossification along the anterior aspect of the greater trochanter within the gluteus minimus insertion. This has a chronic appearance and is not an acute avulsion fracture. There are moderate degenerative changes in the left hip, characterized by subcortical cystic change in the acetabulum. There is a ring of osteophytes on the femoral neck. Only mild joint space narrowing is present. There are moderate degenerative changes of the left SI joint. No evidence of pelvic hematoma. Atherosclerotic vascular calcifications are present. No inguinal hernia. IMPRESSION: 1. No acute fracture about the left hip. 2. Chronic mineralization within the distal gluteus minimus at its insertion on the greater trochanter is likely from old injury. Dictated by: Dictated on workstation # [id number]
== END ==
LOC: RAD 15:12
PROVIDERS: ATTEND Internal Medicine
DX: M76.892 Other specified enthesopathies of left lower limb, excluding foot (principal); M25.752 Osteophyte, left hip
CPT/HCPCS: 73502; 73700

== ENCOUNTER → 2017-03-18 | Outpatient (CLI) | payer MEDICARE, OTHER ==
[~2017-03-18] MED LIST changes: -CARB1TAB19; +CARB1TAB19 PO; +CIPR-225 PO; +INSU100I10 SC; +INSU100V SC; -METF500T4; +METF500T4 PO; -OMEP40CA36; -OXYB10TA; +ROPI3TAB2 PO; +TOPI100T11 PO; +WALK1EAC23 MC
[2017-03-18 09:03] LABS: ALBUMIN 3.5 GM/DL (3.2-4.5); ANION GAP 11 MMOL/L (5-14); BLOOD UREA NITROGEN 20 MG/DL (7-18); BUN/CREATININE RATIO 22; CALCIUM 8.8 MG/DL (8.5-10.1); CARBON DIOXIDE 23 MMOL/L (21-32); CHLORIDE 104 MMOL/L (98-107); CREATININE SERUM 0.93 MG/DL (0.60-1.30); GFR ESTIMATED > 60; GLUCOSE 178 MG/DL (70-105); PHOSPHORUS 3.3 MG/DL (2.3-4.7); POTASSIUM 4.2 MMOL/L (3.6-5.0); SODIUM 138 MMOL/L (135-145)
== END ==
LOC: LAB 08:26
PROVIDERS: ATTEND Hospitalist
DX: N17.9 Acute kidney failure, unspecified (principal)
CPT/HCPCS: 36415; 80069

== ENCOUNTER 2017-03-19 07:59 | Outpatient (RCR) | payer MEDICARE, OTHER ==
[~2017-03-19 07:59] MED LIST changes: +CARB1TAB19; -CARB1TAB19 PO; -CIPR-225 PO; -INSU100I10 SC; -INSU100V SC; +METF500T4; -METF500T4 PO; +OMEP40CA36; +OXYB10TA; -ROPI3TAB2 PO; -TOPI100T11 PO; -WALK1EAC23 MC
== END 2017-03-19 09:35 | disposition home or self-care (01) ==
PROVIDERS: ATTEND Internal Medicine
DX: R25.1 Tremor, unspecified (principal); R53.1 Weakness

== ENCOUNTER 2017-05-15 03:36 | Observation (INO) | payer MEDICARE, OTHER ==
[~2017-05-15] VITALS: Ht 160 cm; Wt 69.1 kg
[~2017-05-15 03:36] MED LIST changes: -CARB1TAB19; +CARB1TAB19 PO; -METF500T4; +METF500T4 PO; -OMEP40CA36; -OXYB10TA
[2017-05-15] MEDS ORDERED: NS IV 1000 ML 1,000 ML ONE (03:38)
[2017-05-15] MEDS ORDERED: NS IV 1000 ML 1,000 ML IV ONE (03:43)
--- OUTSIDE RECORDS SUMMARY | 2017-05-15 03:44 | XMS REPORT ---
Author Author JOSSIE CHINCHILLA Organization [facility] Address [address] [place] [address] Care Team Providers Care Insulation Technician Name Role Phone JOSSIE CHINCHILLA Unavailable PROBLEMS Type Condition ICD9-CM Code [id number] Code Onset Dates Condition Status SNOMED Code Problem Bipolar disorder, current episode depressed, moderate F31.32 Active 056161676 Problem Generalized anxiety disorder F41.1 Active 60970803 ALLERGIES Substance Reaction Event Type Date Status Penicillin V Potassium hives Drug Allergy Aug, Active Macrodantin hives Drug Allergy Aug, Active Mushrooms hives, upset stomach Non Drug Allergy Aug, Active Cow milk hives, upset stomach Non Drug Allergy Aug, Active Goat milk hives, upset stomach Non Drug Allergy Aug, Active Eggs hives, upset stomach Non Drug Allergy Aug, Active Soy hives, upset stomach Non Drug Allergy Aug, Active SOCIAL HISTORY Never Assessed PLAN OF CARE Activity Details Follow Up prn Reason: VITAL SIGNS Height 65 in 2016-08-26 Weight 156.6 lbs 2016-08-26 Temperature 97.4 degrees Fahrenheit 2016-08-26 Heart Rate 76 bpm 2016-08-26 Respiratory Rate 18 2016-08-26 BMI 26.06 kg/m2 2016-08-26 Blood pressure systolic 130 mmHg 2016-08-26 Blood pressure diastolic 68 mmHg 2016-08-26 MEDICATIONS Medication Instructions Dosage Frequency Start Date End Date Duration Status Hydrochlorothiazide 25 MG Orally Once a day 1 tablet 24h Active Hydrocodone-Acetaminophen 10-325 mg 1 Tablet by Oral route 4 times per day PRN pain Jan, Active Janumet 50-1,000 mg 1 Tablet by Oral route 1 time per day Feb, Active Ambien CR 12.5 MG Orally Once a day 1 tablet at bedtime as needed 24h May, 30 days Active Gabapentin 600 MG Orally once a day 2 tablets 24h Jun, 90 days Active Topiramate 100 MG Orally Twice a day 1 tablet 12h 90 days Active Trazodone HCl 50 MG Orally Once a day 1 tablet at bedtime 24h May, 90 days Active Macrobid 100 MG Orally every 12 hrs 1 capsule with food 12h Aug, Aug, 7 day(s) Active Omeprazole 40 mg 1 Capsule by Oral route 1 time per day Jan, Active Abilify 20 MG Orally Once a day 1 tablet 24h Sep, 90 days Active Prozac 40 MG Orally client requests brand name twice a day 1 capsule 12h November, 90 days Active RESULTS Name Result Date Reference Range UA LONG DIP (IN HOUSE) 2016-08-26 Lot # [id number] Exp date 2017-08-05 Clarity clear Color YELLOW Odor NONE GLU negative MAREK negative KET negative SG 1.010 BLO trace-lysed pH 6.5 Protein negative URO 0.2 NIT negative EMILIA 3+ Lot # [id number] Exp date 2017-08 PROCEDURES Procedure Date Ordered Result Body Site URINALYSIS, AUTO, W/O SCOPE Aug 26, 2016 IMMUNIZATIONS No Known Immunizations MEDICAL (GENERAL) HISTORY Type Description Date Surgical History Kidney Stent 02/2015 Surgical History Bladder prolapse 01/2016 Hospitalization History Septecimic/Bladder infection/Kidney Stones/Enlarged Gallbladder 02/2015 Hospitalization History Surgery
--- OUTSIDE RECORDS SUMMARY | 2017-05-15 03:47 | XMS REPORT ---
Author Author [facility] Address [address] [place] [address] Care Team Providers Care Heavy Truck Driver Name Role Phone JOSSIE CHINCHILLA Unavailable PROBLEMS Type Condition ICD9-CM Code [id number] Code Onset Dates Condition Status SNOMED Code Problem Bipolar disorder, current episode depressed, moderate F31.32 Active 672533369 Problem Generalized anxiety disorder F41.1 Active 24901292 ALLERGIES No Information SOCIAL HISTORY Never Assessed PLAN OF CARE VITAL SIGNS MEDICATIONS Unknown Medications RESULTS No Results PROCEDURES No Known procedures IMMUNIZATIONS No Known Immunizations MEDICAL (GENERAL) HISTORY Type Description Date Surgical History Kidney Stent 02/2015 Surgical History Bladder prolapse 01/2016 Hospitalization History Septecimic/Bladder infection/Kidney Stones/Enlarged Gallbladder 02/2015 Hospitalization History Surgery
--- OUTSIDE RECORDS SUMMARY | 2017-05-15 03:47 | XMS REPORT ---
Author Author RYNE CAMP Organization [facility] Address [address] [place] [address] Care Team Providers Care Marketing Support Manager Name Role Phone RYNE CAMP Unavailable PROBLEMS Type Condition ICD9-CM Code [id number] Code Onset Dates Condition Status SNOMED Code Problem Bipolar disorder, current episode depressed, moderate F31.32 Active 290897922 Problem Generalized anxiety disorder F41.1 Active 75465859 ALLERGIES No Information SOCIAL HISTORY Never Assessed PLAN OF CARE Activity Details Follow Up 1 Week Reason:depression & anxiety VITAL SIGNS MEDICATIONS Unknown Medications RESULTS No Results PROCEDURES Procedure Date Ordered Result Body Site Psychotherapy, patient &/family, 30 minutes, established patient Aug 26, 2016 IMMUNIZATIONS No Known Immunizations MEDICAL (GENERAL) HISTORY Type Description Date Surgical History Kidney Stent 02/2015 Surgical History Bladder prolapse 01/2016 Hospitalization History Septecimic/Bladder infection/Kidney Stones/Enlarged Gallbladder 02/2015 Hospitalization History Surgery
[2017-05-15 03:56] LABS: BASOPHILS % (AUTO) 0 % (0-10); EOSINOPHILS % (AUTO) 0 % (0-10); LYMPHOCYTES # (AUTO) 0.9 X 10^3 (1.0-4.0); LYMPHOCYTES % (AUTO) 4 % (12-44); MEAN CORPUSCULAR HEMOGLOBIN 29 PG (25-34); MEAN CORPUSCULAR HGB CONC 35 G/DL (32-36); MEAN CORPUSCULAR VOLUME 82 FL (80-99); MEAN PLATELET VOLUME 9.1 FL (7.4-10.4); MONOCYTES # (AUTO) 2.1 X 10^3 (0.0-1.0); MONOCYTES % (AUTO) 10 % (0-12); NEUTROPHILS # (AUTO) 19.1 X 10^3 (1.8-7.8); NEUTROPHILS % (AUTO) 86 % (42-75); PLATELET COUNT 376 10^3/uL (130-400); RED BLOOD COUNT 4.62 10^6/uL (4.35-5.85); RED CELL DISTRIBUTION WIDTH 15.3 % (10.0-14.5); WHITE BLOOD COUNT 22.2 10^3/uL (4.3-11.0)
--- OUTSIDE RECORDS SUMMARY | 2017-05-15 03:57 | XMS REPORT ---
Author Author RYNE CAMP Organization [facility] Address [address] [place] [address] Care Team Providers Care Ug Designer Name Role Phone RYNE CAMP Unavailable PROBLEMS Type Condition ICD9-CM Code [id number] Code Onset Dates Condition Status SNOMED Code Problem Bipolar disorder, current episode depressed, moderate F31.32 Active 808551074 Problem Generalized anxiety disorder F41.1 Active 33599883 ALLERGIES No Information SOCIAL HISTORY Never Assessed PLAN OF CARE VITAL SIGNS MEDICATIONS Unknown Medications RESULTS Name Result Date Reference Range UA LONG DIP (IN HOUSE) 2016-08-26 Lot # Exp date Clarity Clear Color Yellow Odor Foul GLU Negative MAREK Negative KET Negative SG 1.010 BLO Trace pH 6.5 Protein Negative URO 0.2 NIT Negative EMILIA 3+ Lot # Exp date PROCEDURES Procedure Date Ordered Result Body Site URINALYSIS, AUTO, W/O SCOPE Aug 26, 2016 URINE CULTURE/COLONY COUNT Aug 26, 2016 IMMUNIZATIONS No Known Immunizations MEDICAL (GENERAL) HISTORY Type Description Date Surgical History Kidney Stent 02/2015 Surgical History Bladder prolapse 01/2016 Hospitalization History Septecimic/Bladder infection/Kidney Stones/Enlarged Gallbladder 02/2015 Hospitalization History Surgery
--- OUTSIDE RECORDS SUMMARY | 2017-05-15 04:00 | XMS REPORT ---
Author Author RYNE CAMP Organization [facility] Address [address] [place] [address] Care Team Providers Care Physical Therapy Instructor Name Role Phone RYNE CAMP Unavailable PROBLEMS Type Condition ICD9-CM Code [id number] Code Onset Dates Condition Status SNOMED Code Problem Bipolar disorder, current episode depressed, moderate F31.32 Active 060702578 Problem Generalized anxiety disorder F41.1 Active [id number] ALLERGIES No Information SOCIAL HISTORY Never Assessed PLAN OF CARE Activity Details Follow Up prn Reason: VITAL SIGNS MEDICATIONS Unknown Medications RESULTS No Results PROCEDURES Procedure Date Ordered Result Body Site Psychotherapy, patient &/family, 30 minutes, established patient Sep 02, 2016 IMMUNIZATIONS No Known Immunizations MEDICAL (GENERAL) HISTORY Type Description Date Surgical History Kidney Stent 02/2015 Surgical History Bladder prolapse 01/2016 Hospitalization History Septecimic/Bladder infection/Kidney Stones/Enlarged Gallbladder 02/2015 Hospitalization History Surgery
--- OUTSIDE RECORDS SUMMARY | 2017-05-15 04:00 | XMS REPORT ---
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 Name Role Phone RYNE CAMP Unavailable PROBLEMS Type Condition ICD9-CM Code [id number] Code Onset Dates Condition Status SNOMED Code Problem Bipolar disorder, current episode depressed, moderate F31.32 Active 246854943 Problem Generalized anxiety disorder F41.1 Active [id number] ALLERGIES Unknown Allergies SOCIAL HISTORY No smoking Hx information available PLAN OF CARE Activity Details Follow Up prn Reason:depression, anxiety VITAL SIGNS MEDICATIONS Unknown Medications RESULTS No Results PROCEDURES Procedure Date Ordered Related Diagnosis Body Site Psychotherapy, patient &/family, 30 minutes, established patient Jul 14, 2016 IMMUNIZATIONS No Known Immunizations
--- NOTE | 2017-05-15 04:14 | ED General ---
General Chief Complaint: General Problems/Pain Stated Complaint: FALL,WEAK Nursing Triage Note: PT TO ED 8 PER EMS FOR C/O WEAKNESS ONSET AFTER FALLING YESTERDAY AM AT HOME. PT REPORTS SHE HAS BEEN ON THE FLOOR AT HOME SINCE ET WAS NOT ABLE TO GET UP W/ O POLICE ASSIST THIS AM. PT DENIES LOSS OF BOWEL OR BLADDER, DENIES STRIKING HER HEAD. PT DENIES ANY C/O PAIN AT THIS TIME. NO OTHER C/O VOICED Nursing Sepsis Screen: No Definite Risk Source of Information: Patient, EMS Exam Limitations: No Limitations History of Present Illness Time Seen by Provider: 03:38 Initial Comments This 66-year-old woman presents to the emergency room via EMS for primary complaint of weakness. Patient reports falling in her home yesterday morning and being unable to get up. She was unable to make a phone call for assistance until this morning. Initially police presented to her home to assist her up. They got her to the toilet. However, she was unable to get up from there. EMS assisted her to the bed but she was unable to bear weight and therefore decided to come to the emergency room. She denies any injury of any kind and she has no pain. She reports having some cough and fever prior to falling. She is afebrile at this time. EMS reports fingerstick blood sugar was over 200. Allergies and Home Medications Allergies Coded Allergies: Nitrofurantoin Macrocrystal (Unverified Allergy, Unknown, RASH, 11/23/14) Penicillins (Unverified Allergy, Unknown, RASH, 11/23/14) Home Medications Aripiprazole 20 Mg Tablet, 20 MG PO DAILY, (Reported) Carbidopa/Levodopa 1 Each Tablet, (Reported) Estradiol 1 Mg Tablet, 1 MG PO DAILY, (Reported) Fluoxetine HCl 40 Mg Capsule, 40 MG PO BID, (Reported) Gabapentin 600 Mg Tablet, 1,200 MG PO DAILY, (Reported) Gemfibrozil 600 Mg Tablet, 600 MG PO BID, (Reported) Hydrochlorothiazide 25 Mg Tablet, 25 MG PO DAILY, (Reported) Hydrocodone/Acetaminophen 1 Each Tablet, 1 EACH PO Q4H PRN for PAIN, #20 Prescribed by: DARIEL AVENDAÑO on 02/27/17 4286 Insulin Glargine,Hum.rec.anlog 100 Unit/1 Ml Vial, 10 UNIT SQ HS, (Reported) Insulin Lispro 100 Unit/1 Ml Vial, 25 UNIT SQ TIDAC, (Reported) Magnesium Oxide 250 Mg Tablet, 250 MG PO BID, (Reported) Metformin HCl 500 Mg Tablet, (Reported) Omeprazole 40 Mg Capsule.dr, 40 MG PO DAILY, (Reported) Omeprazole 40 Mg Capsule.dr, (Reported) Oxybutynin Chloride 10 Mg Tab.er.24, (Reported) Prednisone 10 Mg Tab, 10 MG PO UD, #18 3 tablets daily for 3 days, then 2 daily for 3 days, then one daily for 3 days Prescribed by: DARIEL AVENDAÑO on 02/27/17 1831 Ropinirole HCl 2 Mg Tablet, (Reported) Sitagliptin Phos/Metformin Hcl 1 Each Tablet, 1 TAB PO BID, (Reported) Topiramate 100 Mg Tablet, 100 MG PO BID, (Reported) [potassium citrate] , 1,080 MG PO BID WITH MEALS, (Reported) Constitutional: see HPI, fever, weakness EENTM: no symptoms reported Respiratory: see HPI Cardiovascular: no symptoms reported Gastrointestinal: no symptoms reported Genitourinary: no symptoms reported : No Musculoskeletal: no symptoms reported Skin: no symptoms reported Psychiatric/Neurological: No Symptoms Reported Hematologic/Lymphatic: No Symptoms Reported Immunological/Allergic: no symptoms reported Past Bmwvjsx-Yhimtw-[place] Hx Patient Social History Alcohol Use: Denies Use Recreational Drug Use: No Smoking Status: Never a Smoker 2nd Hand Smoke Exposure: No Recent Foreign Travel: No Contact w/Someone Who Travel: No Recent Infectious Disease Expo: No Recent Hopitalizations: No Physical Abuse: No Sexual Abuse: No Mistreated: No Fear: No Immunizations Up To Date Tetanus Booster (TDap): Unknown Seasonal Allergies Seasonal Allergies: Yes Surgeries History of Surgeries: Yes (kidney stone, right breast lesion, macroplastique) Surgeries: Hysterectomy Respiratory History of Respiratory Disorde: No Cardiovascular History of Cardiac Disorders: No Neurological History of Neurological Disord: Yes (Tremors) Reproductive System Hx Reproductive Disorders: No Genitourinary History of Genitourinary Disor: Yes Genitourinary Disorders: Kidney Stones Gastrointestinal History of Gastrointestinal Di: Yes Gastrointestinal Disorders: Gastroesophageal Reflux Musculoskeletal History of Musculoskeletal Dis: Yes (ARTHRITIS) Musculoskeletal Disorders: Arthritis Endocrine History of Endocrine Disorders: Yes Endocrine Disorders: Diabetes, Non-Insulin dep Cancer History of Cancer: No Psychosocial History of Psychiatric Problem: Yes Behavioral Health Disorders: Anxiety, Depression Suicide Risk Score: 0 Integumentary History of Skin or Integumenta: No Blood Transfusions History of Blood Disorders: No Adverse Reaction to a Blood Tr: No Family Medical History Significant Family History: No Pertinent Family Hx Physical Exam Vital Signs Vital Sign - Last 12Hours 05/15/17 03:36 Temp 97.9 Pulse 89 Resp 18 B/P (MAP) 175/79 Pulse Ox 99 O2 Delivery Room Air Capillary Refill : Less Than 3 Seconds General Appearance: No Apparent Distress, WD/WN HEENT: PERRL/EOMI, Normal ENT Inspection, Other (oropharynx dry) Neck: Normal Inspection Respiratory: Lungs Clear, Normal Breath Sounds, No Accessory Muscle Use, No Respiratory Distress Cardiovascular: Regular Rate, Rhythm, No Edema, No Murmur Gastrointestinal: Normal Bowel Sounds, Non Tender, Soft Extremity: Normal Inspection, Non Tender, No Pedal Edema Neurologic/Psychiatric: Alert, Oriented x3, No Motor/Sensory Deficits, Normal Mood/Affect, home care manager rn II-XII Norm as Tested Skin: Normal Color, Warm/Dry Progress/Results/Core Measures Results/Orders Lab Results Laboratory Tests Test 05/15/17 03:45 05/15/17 04:26 Range/Units White Blood Count 22.2 H 4.3-11.0 10^3/uL Red Blood Count 4.62 4.35-5.85 10^6/uL Hemoglobin 13.2 11.5-16.0 G/DL Hematocrit 38 35-52 % Mean Corpuscular Volume 82 80-99 FL Mean Corpuscular Hemoglobin 29 25-34 PG Mean Corpuscular Hemoglobin Concent 35 32-36 G/DL Red Cell Distribution Width 15.3 H 10.0-14.5 % Platelet Count 376 130-400 10^3/uL Mean Platelet Volume 9.1 7.4-10.4 FL Neutrophils (%) (Auto) 86 H 42-75 % Lymphocytes (%) (Auto) 4 L 12-44 % Monocytes (%) (Auto) 10 0-12 % Eosinophils (%) (Auto) 0 0-10 % Basophils (%) (Auto) 0 0-10 % Neutrophils # (Auto) 19.1 H 1.8-7.8 X 10^3 Lymphocytes # (Auto) 0.9 L 1.0-4.0 X 10^3 Monocytes # (Auto) 2.1 H 0.0-1.0 X 10^3 Eosinophils # (Auto) 0.0 0.0-0.3 10^3/uL Basophils # (Auto) 0.0 0.0-0.1 10^3/uL Neutrophils % (Manual) 91 % Lymphocytes % (Manual) 2 % Monocytes % (Manual) 6 % Eosinophils % (Manual) 0 % Basophils % (Manual) 0 % Band Neutrophils 1 % Anisocytosis SLIGHT Sodium Level 139 135-145 MMOL/L Potassium Level 3.0 L 3.6-5.0 MMOL/L Chloride Level 104 98-107 MMOL/L Carbon Dioxide Level 17 L 21-32 MMOL/L Anion Gap 18 H 5-14 MMOL/L Blood Urea Nitrogen 18 7-18 MG/DL Creatinine 1.17 0.60-1.30 MG/DL Estimat Glomerular Filtration Rate 46 BUN/Creatinine Ratio 15 Glucose Level 242 H 70-105 MG/DL Calcium Level 10.2 H 8.5-10.1 MG/DL Total Bilirubin 0.8 0.1-1.0 MG/DL Aspartate Amino Transf (AST/SGOT) 29 5-34 U/L Alanine Aminotransferase (ALT/SGPT) 24 0-55 U/L Alkaline Phosphatase 78 40-136 U/L Total Protein 8.5 H 6.4-8.2 GM/DL Albumin 4.2 3.2-4.5 GM/DL Urine Color YELLOW Urine Clarity SLIGHTLY CLOUDY Urine pH 6 5-9 Urine Specific [place] 1.010 L 1.016-1.022 Urine Protein 3+ H NEGATIVE Urine Glucose (UA) NEGATIVE NEGATIVE Urine Ketones 2+ H NEGATIVE Urine Nitrite NEGATIVE NEGATIVE Urine Bilirubin NEGATIVE NEGATIVE Urine Urobilinogen NORMAL NORMAL MG/DL Urine Leukocyte Esterase 3+ H NEGATIVE Urine RBC (Auto) 4+ H NEGATIVE Urine RBC RARE /HPF Urine WBC 5-10 H /HPF Urine Squamous Epithelial Cells 0-2 /HPF Urine Crystals NONE /LPF Urine Bacteria FEW H /HPF Urine Casts NONE /LPF Urine Mucus MODERATE H /LPF Urine Culture Indicated YES Micro Results Microbiology 05/15/17 Influenza Types A,B Antigen (ALANA) - Final, Complete My Orders Orders - DARIEL TREVIZO MD Cbc With Automated Diff (05/15/17 03:43) Comprehensive Metabolic Panel (05/15/17 03:43) Ua Culture If Indicated (05/15/17 03:43) Influenza A And B Antigens (05/15/17 03:43) Saline Lock/Iv-Start (05/15/17 03:43) Ns Iv 1000 Ml (Sodium Chloride 0.9%) (05/15/17 03:43) Chest 1 View, Ap/Pa Only (05/15/17 03:44) Ns Iv 1000 Ml (Sodium Chloride 0.9%) (05/15/17 03:38) Manual Differential (05/15/17 03:45) Urine Culture (05/15/17 04:26) Potassium Chloride (Tablet) (Klor Con Ta (05/15/17 05:00) Ceftriaxone Injection (Rocephin Injectio (05/15/17 05:00) Medications Given in ED Current Medications Medications Dose Ordered Sig/Matt Route Start Time Stop Time Status Last Admin Dose Admin Sodium Chloride 1,000 ml @ 0 mls/hr Q0M ONCE IV 05/15/17 03:43 05/15/17 03:46 DC 05/15/17 03:48 1,000 MLS/HR Vital Signs/I&O Vital Sign - Last 12Hours 05/15/17 03:36 Temp 97.9 Pulse 89 Resp 18 B/P (MAP) 175/79 Pulse Ox 99 O2 Delivery Room Air Blood Pressure Mean: 111 Progress Note : Progress Note Patient was given a liter of IV fluids. Labs revealed a hypokalemia. 20 mEq of oral potassium were administered. Rocephin was administered for initial treatment of urinary tract infection. IV fluids with potassium replacement will be continued as an inpatient. Patient had significant leukocytosis but did not meet septic criteria. She is being admitted for observation due to significant generalized weakness in association with these problems. She is unable to care for self at present due to weakness. Diagnostic Imaging Diagonstic Imaging: Xray Plain Films/CT/US/NM/MRI: chest Comments Chest x-ray viewed by me. Compared with prior. Report not yet available. No acute abnormalities appreciated. Departure Communication (Admissions) Time/Spoke to Admitting Phy: 04:[address] Jamil Impression Impression: Primary Impression: Hypokalemia Additional Impressions: Urinary tract infection Qualified Codes: N39.0 - Urinary tract infection, site not specified Generalized weakness Hypovolemia Leukocytosis Qualified Codes: D72.829 - Elevated white blood cell count, unspecified Fall on same level Qualified Codes: W18.30XA - Fall on same level, unspecified, initial encounter Disposition: ADMITTED INPATIENT Condition: Improved Admissions Decision to Admit Reason: Admit from ER (General) Decision to Admit/Date: May 15, 2017 Time/Decision to Admit Time: 03:45 Departure-Patient Inst. Decision time for Depature: 03:45 Referrals: RIVKA PAGE DO (PCP/Family) Primary Care Physician DARIEL TREVIZO MD May 15, 2017 04:14
[2017-05-15 04:16] LABS: ALBUMIN 4.2 GM/DL (3.2-4.5); BILIRUBIN,TOTAL 0.8 MG/DL (0.1-1.0); CALCIUM 10.2 MG/DL (8.5-10.1); CREATININE SERUM 1.17 MG/DL (0.60-1.30); TOTAL PROTEIN 8.5 GM/DL (6.4-8.2)
[2017-05-15 04:20] LABS: ANISOCYTOSIS SLIGHT; BAND NEUTROPHILS 1 %; BASOPHILS % (MANUAL) 0 %; EOSINOPHILS % (MANUAL) 0 %; LYMPHOCYTES % (MANUAL) 2 %; NEUTROPHILS % (MANUAL) 91 %
[2017-05-15 04:32] LABS: BILIRUBIN,URINE NEGATIVE (NEGATIVE); KETONES,URINE 2+ (NEGATIVE); LEUKOCYTE ESTERASE ,URINE 3+ (NEGATIVE); NITRITE,URINE NEGATIVE (NEGATIVE); PH,URINE 6 (5-9); PROTEIN,URINE 3+ (NEGATIVE); UROBILINOGEN,URINE NORMAL (NORMAL)
[2017-05-15 04:40] LABS: SQUAMOUS EPITHELIAL CELL,UR 0-2 /HPF
[2017-05-15] MEDS ORDERED: cefTRIAXone INJECTION 1,000 MG in NS (IVPB) 50 ML IV ONE (05:00)
[2017-05-15] MEDS ORDERED: KCL 10 MEQ TAB (MICRO K) PO ONE (05:00)
--- NOTE | 2017-05-15 05:26 | Diagnostic Imaging Report ---
INDICATION: Weakness COMPARISON: 11/10/2016 FINDINGS: Single frontal view of the chest demonstrates normal heart size and pulmonary vascularity. The lungs are well aerated and clear. No large pleural effusion or pneumothorax is seen. The visualized osseous structures show no acute abnormalities. IMPRESSION: 1. No acute cardiopulmonary process. Dictated by: Dictated on workstation # [id number]
[2017-05-15] MEDS ORDERED: ONDANSETRON 4 MG/2 ML (SDV) Z0FRAN IVP PRN (06:45)
[2017-05-15] MEDS: NS W/KCL 20 MEQ/L 1,000 ML IV SCH ×2 (07:12→13:40)
[2017-05-15 08:00] VITALS: BP 135/63
[2017-05-15] MEDS ORDERED: ROPI3TAB2 PO (08:41)
[2017-05-15] MEDS ORDERED: INSU100I10 SC (08:41)
[2017-05-15] MEDS ORDERED: TOPI100T11 PO (08:41)
[2017-05-15] MEDS ORDERED: INSU100V SC (08:41)
--- NOTE | 2017-05-15 09:51 | History & Physical-Hospitalist ---
HPI History of Present Illness: HPI/Chief Complaint CC: Weakness HPI: Pt is a 66yoCF with a PMH of IDDMII who presented to the ER after a fall yesterday and being unable to get back up. She states she crawled around on the floor all day until she finally called policed/EMS to assist her. She was brought here around 2am. She was found to have UTI and was unable to walk due to weakness and was admitted. She reports she has had dysuria for the past day but was unable to urinated yesterday because she was on the ground. She also complained of a mild cough that started yesterday as well. She was unable to provide much other history due to her confusion. She attempted to tell me she takes 400 units of topamax for her diabetes and then asked to stop our conversation due to her confusion. I discussed this with her PCP Dr. Swann who states this is quite off from her baseline and she normally manages her medications very well. Source: patient Exam Limitations: clinical condition Date Seen 05/15/17 Time Seen by Provider: 09:40 Attending Physician Camryn Jamil DO PCP Zeb Swann DO Referring Physician Date of Admission May 15, 2017 at 04:49 Home Medications & Allergies Home Medications Reviewed patient Home Medication Reconciliation Form Allergies Allergies Coded Allergies Nitrofurantoin Macrocrystal (Unverified Allergy, Unknown, RASH, 11/23/14) Penicillins (Unverified Allergy, Unknown, RASH, 11/23/14) egg (Verified Allergy, Unknown, 05/15/17) Past Xisvxre-Esfxmw-Bbhxft Hx Patient Social History Marrital Status: Alcohol Use: Denies Use Recreational Drug Use: No Smoking Status: Never a Smoker 2nd Hand Smoke Exposure: No Physical Abuse Screen: No Sexual Abuse: No Recent Foreign Travel: No Contact w/other who traveled: No Recent Hopitalizations: No Recent Infectious Disease Expo: No Immunizations Up To Date Tetanus Booster (TDap): Unknown Pediatric: No Seasonal Allergies Seasonal Allergies: Yes Surgeries No Hysterectomy Respiratory No Cardiovascular No Neurological Yes (l5-s1 radiculopathy) Parkinson's Disease Reproductive System Hx Reproductive Disorders: No Genitourinary Yes Kidney Stones Gastrointestinal Yes Gastroesophageal Reflux Musculoskeletal Yes Arthritis Endocrine History of Endocrine Disorders: Yes Endocrine Disorders: Diabetes, Insulin dep HEENT History of HEENT Disorders: No Cancer No Psychosocial History of Psychiatric Problem: Yes Behavioral Health Disorders: Anxiety, Depression Integumentary History of Skin or Integumenta: No Blood Transfusions History of Blood Disorders: No Adverse Reaction to a Blood Tr: No Family Medical History Significant Family History: No Pertinent Family Hx Family Hx: Patient reports no known family medical history. Review of Systems Constitutional: fever (tactile), weakness EENTM: No blurred vision, No double vision, No nose congestion, No throat pain Respiratory: cough, No dyspnea on exertion, No orthopnea, No phlegm, No short of breath Cardiovascular: No chest pain, No edema, No palpitations Gastrointestinal: No abdominal pain, constipation, No diarrhea, No nausea, No vomiting Genitourinary: decreased output, dysuria, No frequency Musculoskeletal: No joint pain, No muscle pain, muscle weakness Skin: No lesions, No rash, other Psychiatric/Neurological: Denies Headache, Denies Numbness, Denies Tingling, Weakness Physical Exam Physical Exam Vital Signs Vital Sign - Last 12Hours 05/15/17 03:36 Temp 97.9 Pulse 89 Resp 18 B/P (MAP) 175/79 Pulse Ox 99 O2 Delivery Room Air Capillary Refill : Less Than 3 Seconds General Appearance: No Apparent Distress, WD/WN HEENT: PERRL/EOMI, Moist Mucous Membranes Neck: Supple, No JVD, No Thyromegaly Respiratory: Lungs Clear, Normal Breath Sounds Cardiovascular: Regular Rate, Rhythm, No Murmur Gastrointestinal: Normal Bowel Sounds, Non Tender, Soft Extremity: Non Tender, No Calf Tenderness, No Pedal Edema, Other (muscle wasting of lower extremity) Neurologic/Psychiatric: Alert, Other (flat affect, oriented but reports confusion) Skin: Other (abrasions on knees) Results Results/Procedures Lab Laboratory Tests 05/15/17 03:45 05/15/17 09:40 Assessment/Plan Admission Diagnosis UTI Diagnosis/Problems Diagnosis/Problems (1) Urinary tract infection Status: Acute Assessment & Plan: Apparent on UA Uncomplicated cystitis Likely cause of confusion Continue Rocephin Day 07/08 Qualifiers: Qualified Codes: N39.0 - Urinary tract infection, site not specified (2) Altered mental status Status: Acute Assessment & Plan: I discussed case with Dr Gill to obtain more history given patient's confusion her reports normally alert and oriented x3 and able to manage meds effectively Quite off from that baseline- no focal deficits Likely delirium from UTI Qualifiers: Qualified Codes: R41.0 - Disorientation, unspecified (3) Generalized weakness Status: Acute Assessment & Plan: Chronic and progressing Under evaluation by PCP and outpatient Neurology EMG revealed radiculopathy Per verbal report from Dr. iGll- has had lumbar spine MRI that showed minimal disease PT/OT (4) Hypokalemia Status: Acute Assessment & Plan: Replacing with IVF (5) Fall on same level Status: Acute Assessment & Plan: PT/OT Was done for roughly 18 hours UA shows discordant RBC by colorimetry to microscopy Will check CK Continue IVF Qualifiers: Qualified Codes: W18.30XA - Fall on same level, unspecified, initial encounter (6) Insulin dependent diabetes mellitus Status: Chronic Assessment & Plan: Per Dr Gill A1c around 7 Continue home insulin (7) Radiculopathy of lumbosacral region Assessment & Plan: Per outpatient EMG PT/OT (8) Parkinsons disease Status: Chronic Assessment & Plan: Continue home sinemet (9) Prophylactic measure Assessment & Plan: NS with 20KCL at 150ml/hr Reg Diet Lovenox Clinical Quality Measures DVT/VTE Risk/Contraindication: Risk Factor Score Per Nursin RFS Level Per Nursing on Admit: 4+=Very High KENISHA MARTINES MD May 15, 2017 09:51
[2017-05-15 10:12] LABS: ANION GAP 13 MMOL/L (5-14); BLOOD UREA NITROGEN 15 MG/DL (7-18); BUN/CREATININE RATIO 18; CALCIUM 9.2 MG/DL (8.5-10.1); CARBON DIOXIDE 16 MMOL/L (21-32); CHLORIDE 111 MMOL/L (98-107); CREATININE SERUM 0.84 MG/DL (0.60-1.30); GFR ESTIMATED > 60; GLUCOSE 214 MG/DL (70-105); POTASSIUM 3.3 MMOL/L (3.6-5.0); SODIUM 140 MMOL/L (135-145)
--- NOTE | 2017-05-15 10:45 | Physical Therapy Evaluation ---
PT Evaluation-General Medical Diagnosis Admission Date May 15, 2017 at 04:49 Medical Diagnosis: Hypokalemia, Fall, UTI Onset Date: May 14, 2017 Therapy Diagnosis Therapy Diagnosis: weakness Height/Weight Height (Feet): 5 Height (Inches): 3.00 Weight (Pounds): 152 Weight (Ounces): 5.0 Precautions Precautions/Isolations: Fall Prevention, Standard Precautions Weight Bear Status Right Lower Extremity: Right Weight Bearing/Tolerated Left Lower Extremity: Left Weight Bearing/Tolerated Referral Physician: Ced Reason for Referral: Evaluation/Treatment, Strengthening, Gait Medical History Pertinent Medical History: Arthritis, DM Additional Medical History Hysterectomy, tremors, reflux Reviewed History: Yes Social History Home: Apartment Current Living Status: Alone Entry Into Home: Level Entry Prior/Core FIM Prior Level of Function Functional [place] Measure 0=Not Assessed/NA 4=Minimal Assistance 1=Total Assistance 5=Supervision or Setup 2=Maximal Assistance 6=Modified [place] 3=Moderate Assistance 7=Complete [place] Bed Mobility: 6 Transfers (B,C,W/C) (FIM): 6 Gait: 6 Locomotion: 6 Patient ambulated with single point cane before admission. PT Evaluation-Current Subjective Patient states she has had ongoing atrophy and weakness of both LEs without a diagnosis. She eventually agrees to PT evaluation. Pain Comment: Patient reports general weakness moreso than pain Pt/Family Goals Patient wishes to return to daily function. Objective Patient Orientation: Normal For Age Problem Solving: Good Attachments: SCD's, IV ROM/Strength ROM Upper Extremities WNL ROM Lower Extremities WNL Strength Upper Extremities WNL Strength Lower Extremities 3/5 for all LE movements. General weakness throughout Integumentary/Posture Integumentary intact Bowel Incontinence: No Bladder Incontinence: No Neuromuscular (Tone, Coordination, Reflexes) Patient demonstrated normal tone, coordination, and reflexes. Sensory Vision: Functional Hearing: Functional Sensation Right Upper Extremit: Intact Sensation Left Upper Extremity: Intact Sensation Right Lower Extremit: Intact Sensation Left Lower Extremity: Intact Transfers Functional [place] Measure 0=Not Assessed/NA 4=Minimal Assistance 1=Total Assistance 5=Supervision or Setup 2=Maximal Assistance 6=Modified [place] 3=Moderate Assistance 7=Complete [place] Transfers (B, C, W/C) (FIM): 4 Scootin Rollin Supine to/from Sit: 4 Sit to/from Stand: 4 Patient has the ability to roll and be mobile in bed. She required min PT assistance to rise to sit and stand. She was SBA with sit to supine after treatment. Gait Mode of Locomotion: Walk Gait (FIM): 1 Distance (FIM): 1=up to 49 ft Distance: 75' Gait Level of Assist: 4 Gait Persons Needed: 1 Gait Assistive Device: FWW Comments/Gait Description Patient ambulated with CGA from PT. Patient demonstrated a reciprocal gait pattern with short stride. Gait distance limited by weakness. Balance Sitting Static: Normal Sitting Dynamic: Normal Standing Static: Normal Standing Dynamic: Normal Assessment/Needs Patient demonstrates general progressive LE weakness that has led to a couple falls in recent history. PT will used skilled interventions including WB activities, gait, and therapeutic exercise in order to improve muscular strength and endurance. 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 PT Residential Goals Time Frame: May 22, 2017 Transfers (B,C,W/C) (FIM): 6 Gait (FIM): 6 Distance: 200' Gait Level of Assist: 6 Gait Assistive Device: FWW, Cane Single Point PT Plan Problem List Problem List: Activity Tolerance, Functional Strength, Safety, Balance, Gait, Transfer, Bed Mobility Treatment/Plan Treatment Plan: Continue Plan of Care Treatment Plan: Bed Mobility, Functional Activity Favian, Functional Strength, Gait, Therapeutic Exercise, Transfers Treatment Duration: May 22, 2017 Frequency: 11 times per week Estimated Hrs Per Day: .5 hour per day Patient and/or Family Agrees t: Yes Safety Risks/Education Patient Education: Gait Training, Safety Issues Teaching Recipient: Patient Teaching Methods: Demonstration, Discussion Response to Teaching: Verbalize Understanding, Return Demonstration Discharge Recommendations Therapy D/C Recommendations: Assisted Living, Home Independently, Physical Therapy Home Care, Snf Placement, Senior Living (TCU/NH) Equpiment Recommendations-D/C: Straight Cane, Front Wheeled Walker Time/GCodes Time In: 1025 Time Out: 1035 Total Billed Treatment Time: 10 Total Billed Treatment 1 visit EVM 10 min G Codes Necessary: Yes PT/OT Therapy GCodes Functional Limitation-Current Charge Code: MOBCUR Modifier: CK Functional Limitation-Goal Charge Code: MOBGOAL Modifier: ZECHARIAH ROJAS PT May 15, 2017 10:45
[2017-05-15 12:00] VITALS: BP 142/63
--- NOTE | 2017-05-15 13:24 | Occupational Therapy Eval ---
OT Evaluation-General/PLF Medical Diagnosis Admission Date May 15, 2017 at 04:49 Medical Diagnosis: Hypokalemia, Fall, UTI Onset Date: May 14, 2017 Therapy Diagnosis Therapy Diagnosis: weakness, decr self care, decr activ natalia, decr funct mobility Height/Weight Height (Feet): 5 Height (Inches): 3.00 Weight (Pounds): 152 Weight (Ounces): 5.0 Precautions Precautions/Isolations: Fall Prevention, Standard Precautions Safety Interventions: Bed Exit Alarm Referral Physician: Ced Referral Reason: Evaluation/Treatment Medical History Pertinent Medical History: Arthritis, DM, GERD Additional Medical History Tremors, kidney stones. Anxiety, depression. L5-S1 radiculopathy Current History Pt fell in her home on 05-14-17 and wasn't able to get up until EMS helped her on 05-15-17. Reviewed History: Yes Social History Home: Apartment ([facility] apartment in [place]) Current Living Status: Alone Entry Into Home: Level Entry ADL-Prior Level of Function ADL PLOF Comments Pt reported that she has been able to manage her basic self care needs prior to fall. 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 She still drives. She used a cane for walking at home. OT Current Status Subjective Pt seen in room, up in bed, agreeable to OT. Pt reported pain 0/10. Appearance Alert but sleepy, cooperative Mental Status/Objective Patient Orientation: Person, Place, Time (knew date and year but not month), Situation Attachments: IV Current Glasses/Contacts: Yes Dentures/Partials: Yes Upper Extremity ROM Grossly WFL bilat Upper Extremity Sensation Pt reported no problems Upper Extremity Strength grossly 4/5 bilat ADL-Treatment ADL-Current Pt reported that she hadn't been out of bed except to walk with PT. She has a BSC in her room if needed for toileting. Pt needed min assist for bed mobility and sit to stand and CGA, FWW walking with PT. Functional [place] Measure 0=Not Assessed/NA 4=Minimal Assistance 1=Total Assistance 5=Supervision or Setup 2=Maximal Assistance 6=Modified [place] 3=Moderate Assistance 7=Complete IndependenceIRFPAI Quality Coding Scale 6 Independent with activity with or without an assistive device 5 Patient requires set up or clean up by helper. Patient completes activity by themselves 4 Supervision or touching assist (CGA). [place] provide cues , steadying assist 3 The helper provides less than half the effort to complete the activity 2 The helper provides more than half the effort to complete the activity 1 Dependent. The helper does all the effort to complete an activity 7 Patient refused to complete or attempt activity 9 The patient did not perform the activity before the current illness or injury 88 Not attempted due to Medical conditions or safety concerns Education OT Patient Education: Purpose of tx/functional activities, Rehab process Teaching Recipient: Patient Teaching Methods: Discussion Response to Teaching: Verbalize Understanding OT Stemhole Borer Goals Stemhole Borer Goals Time Frame: May 22, 2017 Eating (FIM): 6 Grooming(FIM): 6 Bathing(FIM): 6 Upper Body Dressing(FIM): 6 Lower Body Dressing(FIM): 6 Toileting(FIM): 6 Toilet/Commode Transfer(FIM): 6 Shower Transfer(FIM): 6 Additional Goals: 1-Demonstrate ADL Tasks, 2-Verbalize Understanding, 3- ImproveStrength/Favian 1=Demonstrate adherence to instructed precautions during ADL tasks. 2=Patient will verbalize/demonstrate understanding of assistive devices/ modifications for ADL. 3=Patient will improve strength/tolerance for activity to enable patient to perform ADL's. OT Education/Plan Problem List/Assessment Assessment: Decreased Activ Tolerance, Decreased UE Strength, Dependent Transfers, Impaired Bed Mobility, Impaired Self-Care Skills Pt would benefit from skilled OT to increase her independence in basic self care to allow her to safely return to her home Discharge Recommendations Plan/Recommendations: Continue POC Therapy D/C Recommendations: Occupational Therapy Home Care, [facility] ( [facility]) Target Placement home Treatment Plan/Plan of Care Treatment,Training & Education: Yes Patient would benefit from OT for education, treatment and training to promote independence in ADL's, mobility, safety and/or upper extremity function for ADL' s. Plan of Care: ADL Retraining, Functional Mobility, UE Funct Exercise/Act Treatment Duration: May 22, 2017 Frequency: 5 times per week Estimated Hrs Per Day: .5 hour per day Agreement: Yes Rehab Potential: Good Time/GCodes Start Time: 11:18 Stop Time: 11:28 Total Time Billed (hr/min): 10 Billed Treatment Time visit, 10 minutes evaluation moderate intensity PT/OT Therapy GCodes Therapy Functional Limitation: Occupational Therapy Test(s)/Tool used to determine: FIM Functional Limitation-Current Charge Code: SELFCUR Modifier: CK Functional Limitation-Goal Charge Code: SELFGOAL Modifier: CHAPINCITO DOCKERY OT May 15, 2017 13:24
--- NOTE | 2017-05-15 13:57 | Physical Therapy Daily Note ---
PT Daily Note-Current Subjective Patient is sleeping in bed upon PT entering the room. She states she is tired, but she agrees to PT. Pain Numeric Pain Scale: 0-No Pain Location: No Pain Reported Comment: LE weakness Mental Status Patient Orientation: Normal For Age Attachments: IV Transfers Functional [place] Measure 0=Not Assessed/NA 4=Minimal Assistance 1=Total Assistance 5=Supervision or Setup 2=Maximal Assistance 6=Modified [place] 3=Moderate Assistance 7=Complete IndependenceIRFPAI Quality Coding Scale 6 Independent with activity with or without an assistive device 5 Patient requires set up or clean up by helper. Patient completes activity by themselves 4 Supervision or touching assist (CGA). [place] provide cues , steadying assist 3 The helper provides less than half the effort to complete the activity 2 The helper provides more than half the effort to complete the activity 1 Dependent. The helper does all the effort to complete an activity 7 Patient refused to complete or attempt activity 9 The patient did not perform the activity before the current illness or injury 88 Not attempted due to Medical conditions or safety concerns Transfers (B, C, W/C) (FIM): 3 Scootin Rollin Supine to/from Sit: 3 Sit to/from Stand: 4 Patient requires min to mod assistance with rising to sit and stand due to her LE weakness. Weight Bearing Right Lower Extremity: Right Weight Bearing/Tolerated Left Lower Extremity: Left Weight Bearing/Tolerated Gait Training Gait (FIM): 2 Distance (FIM): 8=665-27 ft Distance: 100' Gait Level of Assist: 4 Gait Persons Needed: 1 Gait Assistive Device: FWW Patient walks with reciprocal gait pattern with short stride. PT is CGA for safety. Exercises Seated Therapy Exercises: Long arc quads, Hip flexion Seated Reps: 15 Assessment Current Status: Good Progress Patient was able to ambulate a further distance this p.m. than earlier on this date. PT will continue to progress gait distance as well as muscular strengthening and endurance exercise per patient tolerance. PT Halfway Goals Supervisor [place] Goals PT Halfway Goals Time Frame: May 22, 2017 Transfers (B,C,W/C) (FIM): 6 Gait (FIM): 6 Distance: 200' Gait Level of Assist: 6 Gait Assistive Device: FWW, Cane Single Point PT Plan Problem List Problem List: Activity Tolerance, Functional Strength, Safety, Balance, Gait, Transfer, Bed Mobility Treatment/Plan Treatment Plan: Continue Plan of Care Treatment Plan: Bed Mobility, Functional Activity Favian, Functional Strength, Gait, Therapeutic Exercise, Transfers Treatment Duration: May 22, 2017 Frequency: 11 times per week Estimated Hrs Per Day: .5 hour per day Patient and/or Family Agrees t: Yes Time/GCodes Time In: 1322 Time Out: 1338 Total Billed Treatment Time: 16 Total Billed Treatment 1 visit FA 16 min G Codes Necessary: Yes PT/OT Therapy GCodes Therapy Functional Limitation: Occupational Therapy Test(s)/Tool used to determine: FIM Functional Limitation-Current Charge Code: MOBCUR Modifier: CK Functional Limitation-Goal Charge Code: MOBGOAL Modifier: ZECHARIAH ROJAS PT May 15, 2017 13:57
[2017-05-15] MEDS ORDERED: ANTACID SUSP 30 ML UDC (MYLANTA) PO PRN (14:00)
[2017-05-15] MEDS ORDERED: ACETAMINOPHEN 500 MG TAB (TYLENOL) PO PRN (14:00)
[2017-05-15] MEDS ORDERED: ONDANSETRON 4 MG/2 ML (SDV) Z0FRAN IV PRN (14:00)
[2017-05-15] MEDS ORDERED: MILK OF MAGNESIA 400 MG/5 ML 30 ML UDC PO PRN (14:00)
[2017-05-15 16:03] VITALS: BP 157/70
[2017-05-15] MEDS: 1/2 NS W/KCL 20 MEQ/L 1,000 ML IV SCH (17:23)
[2017-05-15 20:02] VITALS: BP 153/70
[2017-05-15] MEDS: inSUlin DETERMIR 1 UNIT/0.01 ML (LEVEMIR) CHARGE PER UNIT SQ SCH (20:40)
[2017-05-15] MEDS: SINEMET 25/100 (CARBIDOPA/LEVODOPA) TAB PO SCH (20:40)
[2017-05-15] MEDS: toPIRamate 100 MG (TOPAMAX) TAB PO SCH (20:40)
[2017-05-15] MEDS: FLUoxetine HCL 20 MG (PROzac) CAP PO SCH (20:40)
[2017-05-15] MEDS: rOPINIRole 1 MG (REQUIP) TABLET PO SCH (20:40)
[2017-05-15] MEDS: OXYBUTYNIN (DITROPAN) 5 MG TAB PO SCH (20:40)
[2017-05-15] MEDS ORDERED: NON-FORMULARY MEDICATION 1 EA EA (Oxybutynin Chloride (Oxybutynin Chloride ER) 10 MG) PO SCH (21:00)
[2017-05-15] MEDS ORDERED: NON-FORMULARY MEDICATION 1 EA EA (Fluoxetine HCl (Prozac) 40 MG) PO SCH (21:00)
[2017-05-15] MEDS ORDERED: NON-FORMULARY MEDICATION 1 EA EA (Insulin Glargine,Hum.rec.anlog (Lantus Solostar) 40 UNIT SC SCH (21:00)
[2017-05-15] MEDS ORDERED: NON-FORMULARY MEDICATION 1 EA EA (Ropinirole HCl 3 MG) PO SCH (21:00)
[2017-05-16] VITALS: BP 122/60
[2017-05-16] MEDS: 1/2 NS W/KCL 20 MEQ/L 1,000 ML IV SCH ×4 (02:25→22:57)
[2017-05-16 04:00] VITALS: BP 132/63
[2017-05-16] MEDS: PANTOPRAZOLE 40 MG (PROTONIX) TAB PO SCH (06:22)
[2017-05-16] MEDS: ACETAMINOPHEN 325 MG TABLET/CAPLET (TYLENOL) PO PRN (06:24)
[2017-05-16 06:35] LABS: BASOPHILS % (AUTO) 0 % (0-10); EOSINOPHILS % (AUTO) 0 % (0-10); LYMPHOCYTES % (AUTO) 7 % (12-44); MEAN CORPUSCULAR HEMOGLOBIN 29 PG (25-34); MEAN CORPUSCULAR HGB CONC 34 G/DL (32-36); MEAN CORPUSCULAR VOLUME 84 FL (80-99); MEAN PLATELET VOLUME 9.2 FL (7.4-10.4); MONOCYTES # (AUTO) 1.4 X 10^3 (0.0-1.0); MONOCYTES % (AUTO) 10 % (0-12); NEUTROPHILS # (AUTO) 11.8 X 10^3 (1.8-7.8); NEUTROPHILS % (AUTO) 83 % (42-75); PLATELET COUNT 298 10^3/uL (130-400); RED BLOOD COUNT 3.54 10^6/uL (4.35-5.85); RED CELL DISTRIBUTION WIDTH 15.9 % (10.0-14.5); WHITE BLOOD COUNT 14.1 10^3/uL (4.3-11.0)
[2017-05-16 06:51] LABS: ANION GAP 10 MMOL/L (5-14); BLOOD UREA NITROGEN 11 MG/DL (7-18); BUN/CREATININE RATIO 15; CALCIUM 8.4 MG/DL (8.5-10.1); CARBON DIOXIDE 15 MMOL/L (21-32); CHLORIDE 112 MMOL/L (98-107); CREATININE SERUM 0.72 MG/DL (0.60-1.30); GFR ESTIMATED > 60; GLUCOSE 108 MG/DL (70-105); POTASSIUM 3.4 MMOL/L (3.6-5.0); SODIUM 137 MMOL/L (135-145)
[2017-05-16 08:00] VITALS: BP 125/61
--- NOTE | 2017-05-16 08:03 | Physical Therapy Daily Note ---
PT Daily Note-Current Subjective Patient states she is not feeling any better and reluctantly agrees to PT. Pain Numeric Pain Scale: 5-Moderate Pain Location: Soft Tissue Location Body Site: Generalized Pain Description: Ache Mental Status Patient Orientation: Normal For Age Attachments: IV Transfers Functional [place] Measure 0=Not Assessed/NA 4=Minimal Assistance 1=Total Assistance 5=Supervision or Setup 2=Maximal Assistance 6=Modified [place] 3=Moderate Assistance 7=Complete IndependenceIRFPAI Quality Coding Scale 6 Independent with activity with or without an assistive device 5 Patient requires set up or clean up by helper. Patient completes activity by themselves 4 Supervision or touching assist (CGA). [place] provide cues , steadying assist 3 The helper provides less than half the effort to complete the activity 2 The helper provides more than half the effort to complete the activity 1 Dependent. The helper does all the effort to complete an activity 7 Patient refused to complete or attempt activity 9 The patient did not perform the activity before the current illness or injury 88 Not attempted due to Medical conditions or safety concerns Transfers (B, C, W/C) (FIM): 5 Scootin Rollin Supine to/from Sit: 5 Sit to/from Stand: 5 very slow, methodical movement and requires much encouragement to perform tasks by herself Weight Bearing Right Lower Extremity: Right Weight Bearing/Tolerated Left Lower Extremity: Left Weight Bearing/Tolerated Gait Training Gait (FIM): 5 Distance (FIM): 3=150 ft Distance: 200' Gait Level of Assist: 5 Gait Assistive Device: FWW functional reciprocal gait pattern with use of FWW Exercises Supine Ex: Ankle pumps, Quad Set, Heel Slides, Straight leg raise Supine Reps: 10 Seated Therapy Exercises: Long arc quads Seated Reps: 10 Assessment Patient is progressing with treatment plan. Patient is self limiting and requires encouragement to participate with therapy and for OOB activity. Patient left in recliner with needs met. PT Custodial Goals Bone Char Puller Goals PT Bone Char Puller Goals Time Frame: May 22, 2017 Transfers (B,C,W/C) (FIM): 6 Gait (FIM): 6 Distance: 200' Gait Level of Assist: 6 Gait Assistive Device: FWW, Cane Single Point PT Plan Treatment/Plan Treatment Plan: Continue Plan of Care Treatment Plan: Bed Mobility, Functional Activity Favian, Functional Strength, Gait, Therapeutic Exercise, Transfers Treatment Duration: May 22, 2017 Frequency: 11 times per week Estimated Hrs Per Day: .5 hour per day Patient and/or Family Agrees t: Yes Time/GCodes Time In: 732 Time Out: 755 Total Billed Treatment Time: 23 Total Billed Treatment 1 visit GT 13 min EX 10 min PT/OT Therapy GCodes Therapy Functional Limitation: Occupational Therapy Test(s)/Tool used to determine: FIM Functional Limitation-Current Charge Code: MOBCUR Modifier: CK Functional Limitation-Goal Charge Code: MOBGOAL Modifier: ZECHARIAH ROJAS PT May 16, 2017 08:03
[2017-05-16] MEDS: FLUoxetine HCL 20 MG (PROzac) CAP PO SCH ×2 (08:24→21:37)
[2017-05-16] MEDS: toPIRamate 100 MG (TOPAMAX) TAB PO SCH ×2 (08:24→21:37)
[2017-05-16] MEDS: SINEMET 25/100 (CARBIDOPA/LEVODOPA) TAB PO SCH ×3 (08:24→21:37)
[2017-05-16] MEDS: cefTRIAXone 1 GM/NS 50 ML IVPB IV SCH ×2 (08:24)
[2017-05-16] MEDS: OXYBUTYNIN (DITROPAN) 5 MG TAB PO SCH ×2 (08:24→21:37)
[2017-05-16] MEDS ORDERED: NON-FORMULARY MEDICATION 1 EA EA (Omeprazole 40 MG) PO SCH (09:00)
--- NOTE | 2017-05-16 09:22 | Progress Note-Hospitalist ---
Subjective HPI/CC On Admission Date Seen by Provider: May 16, 2017 Time Seen by Provider: 09:00 CC: Weakness HPI: Pt is a 66yoCF with a PMH of IDDMII who presented to the ER after a fall yesterday and being unable to get back up. She states she crawled around on the floor all day until she finally called policed/EMS to assist her. She was brought here around 2am. She was found to have UTI and was unable to walk due to weakness and was admitted. She reports she has had dysuria for the past day but was unable to urinated yesterday because she was on the ground. She also complained of a mild cough that started yesterday as well. She was unable to provide much other history due to her confusion. She attempted to tell me she takes 400 units of topamax for her diabetes and then asked to stop our conversation due to her confusion. I discussed this with her PCP Dr. Swann who states this is quite off from her baseline and she normally manages her medications very well. Subjective/Events-last exam Pt reports feeling better. Still feels weak but able to get out of bed. Interested in IRU if able to participate. Objective Exam Vital Signs Vital Sign - Last 12Hours 05/15/17 03:36 Temp 97.9 Pulse 89 Resp 18 B/P (MAP) 175/79 Pulse Ox 99 O2 Delivery Room Air Capillary Refill : Less Than 3 Seconds General Appearance: No Apparent Distress, WD/WN Respiratory: Lungs Clear, No Respiratory Distress Cardiovascular: Regular Rate, Rhythm, No Murmur Gastrointestinal: Normal Bowel Sounds, Non Tender, Soft Extremity: Non Tender, No Calf Tenderness, Other (signigicant muscle wasting of lower extremities) Neurologic/Psychiatric: Alert, Oriented x3 Results/Procedures Lab Laboratory Tests 05/15/17 09:40 05/16/17 06:27 Assessment/Plan Assessment and Plan Assess & Plan/Chief Complaint UTI Diagnosis/Problems Diagnosis/Problems (1) Urinary tract infection Status: Acute Assessment & Plan: Pseudomonas from culture- sensitivies pending Uncomplicated cystitis Likely cause of confusion Continue Rocephin Day 2/ Qualifiers: Qualified Codes: N39.0 - Urinary tract infection, site not specified (2) Altered mental status Status: Acute Assessment & Plan: I discussed case with Dr Gill to obtain more history given patient's confusion on admission her reports normally alert and oriented x3 and able to manage meds effectively Improving today Likely delirium from UTI Qualifiers: Qualified Codes: R41.0 - Disorientation, unspecified (3) Generalized weakness Status: Acute Assessment & Plan: Chronic and progressing Under evaluation by PCP and outpatient Neurology EMG revealed radiculopathy Per verbal report from Dr. Gill- has had lumbar spine MRI that showed minimal disease PT/OT IRU consulted (4) Hypokalemia Status: Acute Assessment & Plan: DC-ed fluids Will replace orally (5) Fall on same level Status: Acute Assessment & Plan: PT/OT Was done for roughly 18 hours UA shows discordant RBC by colorimetry to microscopy CK mildly elevated, symptomatically improved Continue IVF Qualifiers: Qualified Codes: W18.30XA - Fall on same level, unspecified, initial encounter (6) Insulin dependent diabetes mellitus Status: Chronic Assessment & Plan: Per Dr Gill A1c around 7 Continue home insulin SSI (7) Radiculopathy of lumbosacral region Assessment & Plan: Per outpatient EMG PT/OT (8) Parkinsons disease Status: Chronic Assessment & Plan: Continue home sinemet (9) Prophylactic measure Assessment & Plan: Saline Lock Reg Diet KENISHA Gupta MD May 16, 2017 9:22 am
[2017-05-16] MEDS ORDERED: KCL 20 MEQ TAB (K-DUR) PO ONE (09:30)
[2017-05-16 12:00] VITALS: BP 134/63
[2017-05-16 15:47] VITALS: BP 133/63
[2017-05-16] MEDS: rOPINIRole 1 MG (REQUIP) TABLET PO SCH (21:37)
[2017-05-16] MEDS: inSUlin DETERMIR 1 UNIT/0.01 ML (LEVEMIR) CHARGE PER UNIT SQ SCH (21:37)
[2017-05-17] VITALS: BP 143/65
[2017-05-17 05:03] LABS: BASOPHILS % (AUTO) 0 % (0-10); EOSINOPHILS # (AUTO) 0.2 10^3/uL (0.0-0.3); EOSINOPHILS % (AUTO) 2 % (0-10); LYMPHOCYTES # (AUTO) 1.6 X 10^3 (1.0-4.0); LYMPHOCYTES % (AUTO) 18 % (12-44); MEAN CORPUSCULAR HEMOGLOBIN 28 PG (25-34); MEAN CORPUSCULAR HGB CONC 33 G/DL (32-36); MEAN CORPUSCULAR VOLUME 86 FL (80-99); MEAN PLATELET VOLUME 9.7 FL (7.4-10.4); MONOCYTES % (AUTO) 11 % (0-12); NEUTROPHILS # (AUTO) 6.3 X 10^3 (1.8-7.8); NEUTROPHILS % (AUTO) 69 % (42-75); PLATELET COUNT 297 10^3/uL (130-400); RED BLOOD COUNT 3.54 10^6/uL (4.35-5.85); RED CELL DISTRIBUTION WIDTH 15.8 % (10.0-14.5); WHITE BLOOD COUNT 9.1 10^3/uL (4.3-11.0)
[2017-05-17 05:21] LABS: ANION GAP 7 MMOL/L (5-14); BLOOD UREA NITROGEN 9 MG/DL (7-18); BUN/CREATININE RATIO 13; CALCIUM 8.4 MG/DL (8.5-10.1); CARBON DIOXIDE 15 MMOL/L (21-32); CHLORIDE 113 MMOL/L (98-107); CREATININE SERUM 0.72 MG/DL (0.60-1.30); GFR ESTIMATED > 60; GLUCOSE 105 MG/DL (70-105); POTASSIUM 4.1 MMOL/L (3.6-5.0); SODIUM 135 MMOL/L (135-145)
[2017-05-17] MEDS: PANTOPRAZOLE 40 MG (PROTONIX) TAB PO SCH (06:22)
[2017-05-17] MEDS: FLUoxetine HCL 20 MG (PROzac) CAP PO SCH ×2 (08:06→20:29)
[2017-05-17] MEDS: OXYBUTYNIN (DITROPAN) 5 MG TAB PO SCH ×2 (08:06→20:29)
[2017-05-17] MEDS: toPIRamate 100 MG (TOPAMAX) TAB PO SCH ×2 (08:06→20:29)
[2017-05-17] MEDS: cefTRIAXone 1 GM/NS 50 ML IVPB IV SCH ×2 (08:06)
[2017-05-17] MEDS: SINEMET 25/100 (CARBIDOPA/LEVODOPA) TAB PO SCH ×3 (08:06→20:29)
[2017-05-17] MEDS: 1/2 NS W/KCL 20 MEQ/L 1,000 ML IV SCH (08:07)
[2017-05-17 08:19] VITALS: BP 162/75
[2017-05-17] MEDS: ACETAMINOPHEN 325 MG TABLET/CAPLET (TYLENOL) PO PRN (10:55)
[2017-05-17 11:46] VITALS: BP 151/74
--- NOTE | 2017-05-17 15:37 | Progress Note-Hospitalist ---
Subjective HPI/CC On Admission Date Seen by Provider: May 17, 2017 Time Seen by Provider: 10:45 CC: Weakness HPI: Pt is a 66yoCF with a PMH of IDDMII who presented to the ER after a fall yesterday and being unable to get back up. She states she crawled around on the floor all day until she finally called policed/EMS to assist her. She was brought here around 2am. She was found to have UTI and was unable to walk due to weakness and was admitted. She reports she has had dysuria for the past day but was unable to urinated yesterday because she was on the ground. She also complained of a mild cough that started yesterday as well. She was unable to provide much other history due to her confusion. She attempted to tell me she takes 400 units of topamax for her diabetes and then asked to stop our conversation due to her confusion. I discussed this with her PCP Dr. Swann who states this is quite off from her baseline and she normally manages her medications very well. Subjective/Events-last exam Pt reports feeling better. Still very weak but getting better. No other concerns /complaints. Objective Exam Vital Signs Vital Sign - Last 12Hours 05/15/17 03:36 Temp 97.9 Pulse 89 Resp 18 B/P (MAP) 175/79 Pulse Ox 99 O2 Delivery Room Air Capillary Refill : Less Than 3 Seconds General Appearance: No Apparent Distress, WD/WN Respiratory: Lungs Clear, No Respiratory Distress Cardiovascular: Regular Rate, Rhythm, No Murmur Gastrointestinal: Normal Bowel Sounds, Non Tender, Soft Extremity: Non Tender, No Calf Tenderness Neurologic/Psychiatric: Alert, Oriented x3 Results/Procedures Lab Laboratory Tests 05/17/17 04:42 Assessment/Plan Assessment and Plan Assess & Plan/Chief Complaint UTI Diagnosis/Problems Diagnosis/Problems (1) Urinary tract infection Status: Acute Assessment & Plan: Pseudomonas from culture- pansensitive Uncomplicated cystitis Likely cause of confusion Continue Rocephin Day 09/05 Qualifiers: Qualified Codes: N39.0 - Urinary tract infection, site not specified (2) Altered mental status Status: Acute Assessment & Plan: I discussed case with Dr Gill to obtain more history given patient's confusion on admission- normally A&Ox3 with high functioning ability Improving still, near normal Qualifiers: Qualified Codes: R41.0 - Disorientation, unspecified (3) Generalized weakness Status: Acute Assessment & Plan: Chronic and progressing Under evaluation by PCP and outpatient Neurology EMG revealed radiculopathy Per verbal report from Dr. Gill- has had lumbar spine MRI that showed minimal disease PT/OT IRU consulted (4) Hypokalemia Status: Resolved Assessment & Plan: Resolved (5) Fall on same level Status: Acute Assessment & Plan: PT/OT Was done for roughly 18 hours UA shows discordant RBC by colorimetry to microscopy CK mildly elevated, symptomatically improved Continue IVF Qualifiers: Qualified Codes: W18.30XA - Fall on same level, unspecified, initial encounter (6) Insulin dependent diabetes mellitus Status: Chronic Assessment & Plan: Per Dr Gill A1c around 7 Continue home insulin SSI (7) Radiculopathy of lumbosacral region Assessment & Plan: Per outpatient EMG PT/OT (8) Parkinsons disease Status: Chronic Assessment & Plan: Continue home sinemet (9) Prophylactic measure Assessment & Plan: Saline Lock Reg Diet Lovenox KENISHA MARTINES MD May 17, 2017 3:37 pm
[2017-05-17 15:52] VITALS: BP 157/75
[2017-05-17] MEDS: inSUlin DETERMIR 1 UNIT/0.01 ML (LEVEMIR) CHARGE PER UNIT SQ SCH (20:29)
[2017-05-17] MEDS: rOPINIRole 1 MG (REQUIP) TABLET PO SCH (20:29)
[2017-05-18] VITALS: BP 156/73
[2017-05-18] MEDS: PANTOPRAZOLE 40 MG (PROTONIX) TAB PO SCH (06:39)
[2017-05-18 08:00] VITALS: BP 158/69
[2017-05-18] MEDS: FLUoxetine HCL 20 MG (PROzac) CAP PO SCH ×2 (08:49→21:47)
[2017-05-18] MEDS: OXYBUTYNIN (DITROPAN) 5 MG TAB PO SCH ×2 (08:49→21:47)
[2017-05-18] MEDS: SINEMET 25/100 (CARBIDOPA/LEVODOPA) TAB PO SCH ×3 (08:49→21:47)
[2017-05-18] MEDS: toPIRamate 100 MG (TOPAMAX) TAB PO SCH ×2 (08:49→21:47)
--- NOTE | 2017-05-18 09:32 | Occupational Ther Daily Note ---
OT Current Status-Daily Note Subjective Pt seen in room, up in bed, agreeable to OT. Pt reported that she "hurts all over" and later mentioned her back hurt. Not rated or described. Appearance Alert, cooperative Mental Status/Objective Functional [place] Measure 0=Not Assessed/NA 4=Minimal Assistance 1=Total Assistance 5=Supervision or Setup 2=Maximal Assistance 6=Modified [place] 3=Moderate Assistance 7=Complete [place] ADL-Treatment Pt was able to move legs to EOB and sit up, with HOB up and using bed rails. Reported brief dizziness that went away after sitting for a minute or so. Sit to stand with SBA, FWW, skilled cues for hand placement. Walked CGA, FWW to bathroom and got on toilet with SBA, skilled cues for hand placement (grab bars are on L side). Pt was able to manage clothing and hygiene with setup to get wipes. She needed min assist to get up off tall toilet with grab bar and would benefit from arms on both sides of toilet so that she could push up instead of pull up with grab bar. Pt stood SBA, FWW at sink to brush teeth and wash face and hands. Walked SBA, FWW to recliner and sat without assistance. Pt was able to pour liquid and get a drink by herself. No clothing available. She reported that she took a shower in her room yesterday and said that it "went well". Pt was left up in recliner, all needs met. Discussed with nursing to please encourage her to be up and to walk to bathroom instead of using BSC in her room , to increase her activity level. Grooming (FIM): 5 Toileting (FIM): 5 Transfers (B, C, W/C) (FIM): 5 Toilet/Commode Transfer (FIM): 4 Education OT Patient Education: Modified ADL techniques, Progress toward Goal/Update tx plan, Purpose of tx/functional activities, Transfer techniques Teaching Recipient: Patient Teaching Methods: Discussion Response to Teaching: Verbalize Understanding, Return Demonstration, Reinforcement Needed OT Short Term Goals Short Term Goals 1=Demonstrate adherence to instructed precautions during ADL tasks. 2=Patient will verbalize/demonstrate understanding of assistive devices/ modifications for ADL. 3=Patient will improve strength/tolerance for activity to enable patient to perform ADL's. OT Skilled Nursing Goals Animal Eviscerator Goals Time Frame: May 22, 2017 Eating (FIM): 6 Grooming(FIM): 6 Bathing(FIM): 6 Upper Body Dressing(FIM): 6 Lower Body Dressing(FIM): 6 Toileting(FIM): 6 Toilet/Commode Transfer(FIM): 6 Shower Transfer(FIM): 6 Additional Goals: 1-Demonstrate ADL Tasks, 2-Verbalize Understanding, 3- ImproveStrength/Favian 1=Demonstrate adherence to instructed precautions during ADL tasks. 2=Patient will verbalize/demonstrate understanding of assistive devices/ modifications for ADL. 3=Patient will improve strength/tolerance for activity to enable patient to perform ADL's. OT Education/Plan Problem List/Assessment Pt would benefit from skilled OT to increase her independence in basic self care to allow her to safely return to her home Discharge Recommendations Plan/Recommendations: Continue POC Treatment Plan/Plan of Care Patient would benefit from OT for education, treatment and training to promote independence in ADL's, mobility, safety and/or upper extremity function for ADL' s. Plan of Care: ADL Retraining, Functional Mobility, UE Funct Exercise/Act Treatment Duration: May 22, 2017 Frequency: 5 times per week Estimated Hrs Per Day: .5 hour per day Agreement: Yes Rehab Potential: Good Time/GCodes Start Time: 08:50 Stop Time: 09:19 Total Time Billed (hr/min): 29 Billed Treatment Time visit, 29 minutes ADL PT/OT Therapy GCodes Therapy Functional Limitation: Occupational Therapy Test(s)/Tool used to determine: FIM Functional Limitation-Current Charge Code: MOBCUR Modifier: CK Functional Limitation-Goal Charge Code: MOBGOAL Modifier: CHAPINCITO DOCKERY OT May 18, 2017 09:32
--- NOTE | 2017-05-18 10:13 | Physical Therapy Daily Note ---
PT Daily Note-Current Subjective Patient reports that she feels sore all over today, but she is in much better spirits. She agrees to PT. Pain Comment: general soreness in back, knees, and elbows Appearance Patient appears healthy. Patient is left in bed with call light and phone in reach. Mental Status Patient Orientation: Normal For Age Transfers Functional [place] Measure 0=Not Assessed/NA 4=Minimal Assistance 1=Total Assistance 5=Supervision or Setup 2=Maximal Assistance 6=Modified [place] 3=Moderate Assistance 7=Complete IndependenceIRFPAI Quality Coding Scale 6 Independent with activity with or without an assistive device 5 Patient requires set up or clean up by helper. Patient completes activity by themselves 4 Supervision or touching assist (CGA). [place] provide cues , steadying assist 3 The helper provides less than half the effort to complete the activity 2 The helper provides more than half the effort to complete the activity 1 Dependent. The helper does all the effort to complete an activity 7 Patient refused to complete or attempt activity 9 The patient did not perform the activity before the current illness or injury 88 Not attempted due to Medical conditions or safety concerns Transfers (B, C, W/C) (FIM): 5 Scootin Rollin Supine to/from Sit: 5 Sit to/from Stand: 5 Patient performed all transfers with SBA from PT. Weight Bearing Right Lower Extremity: Right Weight Bearing/Tolerated Left Lower Extremity: Left Weight Bearing/Tolerated Gait Training Gait (FIM): 5 Distance: 300' Gait Level of Assist: 5 Gait Persons Needed: 1 Gait Assistive Device: Cane Single Point Patient walked with FWW and then attempted ambulation with single point cane. Gait pattern with FWW is normal and safe. Patient took smaller strides with some unsteadiness with single point cane. Exercises Supine Ex: Heel Slides, Short Arc Quads, Straight leg raise Supine Reps: 15 Assessment Current Status: Good Progress Patient seemed to be in much better spirits upon PT entering on this date. She demonstrated much better tolerance for gait and transfers. PT will continue to progress exercise as tolerated. PT Lead Bi Developer Goals Lead Bi Developer Goals PT Residential Goals Time Frame: May 22, 2017 Transfers (B,C,W/C) (FIM): 6 Gait (FIM): 6 Distance: 200' Gait Level of Assist: 6 Gait Assistive Device: FWW, Cane Single Point PT Plan Problem List Problem List: Activity Tolerance, Functional Strength, Safety, Balance, Gait Treatment/Plan Treatment Plan: Continue Plan of Care Treatment Plan: Bed Mobility, Functional Activity Favian, Functional Strength, Gait, Therapeutic Exercise, Transfers Treatment Duration: May 22, 2017 Frequency: 11 times per week Estimated Hrs Per Day: .5 hour per day Patient and/or Family Agrees t: Yes Time/GCodes Time In: 930 Time Out: 953 Total Billed Treatment Time: 23 Total Billed Treatment 1 visit EX 10 min GT 13 min PT/OT Therapy GCodes Therapy Functional Limitation: Occupational Therapy Test(s)/Tool used to determine: FIM Functional Limitation-Current Charge Code: MOBCUR Modifier: CK Functional Limitation-Goal Charge Code: MOBGOAL Modifier: ZECHARIAH ROJAS PT May 18, 2017 10:13
--- NOTE | 2017-05-18 14:01 | Physical Therapy Daily Note ---
PT Daily Note-Current Subjective Patient is laying in bed upon PT entering the room. She states she is more sore than this morning and complains of R knee pain. Pain Comment: general soreness Appearance Yuan appears healthy. She is left post tx in her chair with call light and phone nearby. Mental Status Patient Orientation: Normal For Age Transfers Functional [place] Measure 0=Not Assessed/NA 4=Minimal Assistance 1=Total Assistance 5=Supervision or Setup 2=Maximal Assistance 6=Modified [place] 3=Moderate Assistance 7=Complete IndependenceIRFPAI Quality Coding Scale 6 Independent with activity with or without an assistive device 5 Patient requires set up or clean up by helper. Patient completes activity by themselves 4 Supervision or touching assist (CGA). [place] provide cues , steadying assist 3 The helper provides less than half the effort to complete the activity 2 The helper provides more than half the effort to complete the activity 1 Dependent. The helper does all the effort to complete an activity 7 Patient refused to complete or attempt activity 9 The patient did not perform the activity before the current illness or injury 88 Not attempted due to Medical conditions or safety concerns Transfers (B, C, W/C) (FIM): 5 Scootin Rollin Supine to/from Sit: 5 Sit to/from Stand: 5 Patient performs all transfers with SBA. Weight Bearing Right Lower Extremity: Right Weight Bearing/Tolerated Left Lower Extremity: Left Weight Bearing/Tolerated Gait Training Gait (FIM): 5 Distance: >300' Gait Level of Assist: 5 Gait Persons Needed: 1 Gait Assistive Device: FWW Patient ambulates safely with FWW while PT is SBA. Exercises Seated Therapy Exercises: Ankle pumps, Long arc quads, Hip flexion, Hip abd/add , Glut set Seated Reps: 20 Assessment Current Status: Good Progress Patient has shown improved tolerance for PT interventions including gait and exercise. Patient attitude toward PT has also improved. Patient also reports that she does not feel as if she is safe to go home yey. PT will continue to progress interventions to improve LE strength and endurance. PT Nursing Home Goals Nursing Home Goals PT Nursing Home Goals Time Frame: May 22, 2017 Transfers (B,C,W/C) (FIM): 6 Gait (FIM): 6 Distance: 200' Gait Level of Assist: 6 Gait Assistive Device: FWW, Cane Single Point PT Plan Problem List Problem List: Activity Tolerance, Functional Strength, Safety, Balance, Gait Treatment/Plan Treatment Plan: Continue Plan of Care Treatment Plan: Bed Mobility, Functional Activity Favian, Functional Strength, Gait, Therapeutic Exercise, Transfers Treatment Duration: May 22, 2017 Frequency: 11 times per week Estimated Hrs Per Day: .5 hour per day Patient and/or Family Agrees t: Yes Time/GCodes Time In: 1300 Time Out: 1323 Total Billed Treatment Time: 23 Total Billed Treatment 1 visit EX 10 min GT 13 min PT/OT Therapy GCodes Therapy Functional Limitation: Occupational Therapy Test(s)/Tool used to determine: FIM Functional Limitation-Current Charge Code: MOBCUR Modifier: CK Functional Limitation-Goal Charge Code: MOBGOAL Modifier: ZECHARIAH ROJAS PT May 18, 2017 14:01
[2017-05-18] MEDS: ACETAMINOPHEN 325 MG TABLET/CAPLET (TYLENOL) PO PRN (15:55)
[2017-05-18 16:33] VITALS: BP 150/72
--- NOTE | 2017-05-18 17:21 | Progress Note-Hospitalist ---
Standard Progress Note Progress Notes/Assess & Plan Date Seen 05/18/17 Time Seen by Provider: 17:16 Diagnosis UTI Assess & Plan/Chief Complaint The patient reports she is feeling much better. She still feels weak. She believes that she could benefit from some physical therapy. She reports that her legs have been withering over several years now. She has seen neurology and no one has been able to pin down the cause of her muscle atrophy. Physical exam: The patient is alert and oriented. Lungs are clear to auscultation. CV is regular without murmur. Extremities indeed show considerable loss of muscle mass in the calves and thighs bilaterally. Impression: 1.urinary tract infection. 2.chronic progressive muscle atrophy lower extremities with an approximately 18 hours stay on the floor of her home prior to admission. Plan: It is noted that the patient was initially was placed on Rocephin. The urine culture has grown Pseudomonas which would not be sensitive to Rocephin. I do not find a replacement listed and had therefore started C[facility] ROSELINE KHAN MD May 18, 2017 17:21
[2017-05-18] MEDS: rOPINIRole 1 MG (REQUIP) TABLET PO SCH (21:47)
[2017-05-18] MEDS: CIPROFLOXACIN 500 MG (CIPRO) TABLET PO SCH (21:47)
[2017-05-18] MEDS: inSUlin DETERMIR 1 UNIT/0.01 ML (LEVEMIR) CHARGE PER UNIT SQ SCH (21:47)
[2017-05-19] VITALS: BP 146/71
[2017-05-19] MEDS: ACETAMINOPHEN 325 MG TABLET/CAPLET (TYLENOL) PO PRN ×2 (02:28→08:45)
[2017-05-19 08:05] VITALS: BP 177/84
[2017-05-19] MEDS: FLUoxetine HCL 20 MG (PROzac) CAP PO SCH (08:41)
[2017-05-19] MEDS: CIPROFLOXACIN 500 MG (CIPRO) TABLET PO SCH (08:41)
[2017-05-19] MEDS: SINEMET 25/100 (CARBIDOPA/LEVODOPA) TAB PO SCH ×2 (08:41→12:15)
[2017-05-19] MEDS: toPIRamate 100 MG (TOPAMAX) TAB PO SCH (08:42)
[2017-05-19] MEDS: PANTOPRAZOLE 40 MG (PROTONIX) TAB PO SCH (08:42)
[2017-05-19] MEDS: OXYBUTYNIN (DITROPAN) 5 MG TAB PO SCH (08:42)
--- NOTE | 2017-05-19 12:54 | Physical Therapy Daily Note ---
PT Daily Note-Current Subjective Patient and physician report she is dismissing to home with FWW and home health. Pain Numeric Pain Scale: 0-No Pain Location: No Pain Reported Mental Status Patient Orientation: Normal For Age Transfers Functional [place] Measure 0=Not Assessed/NA 4=Minimal Assistance 1=Total Assistance 5=Supervision or Setup 2=Maximal Assistance 6=Modified [place] 3=Moderate Assistance 7=Complete IndependenceIRFPAI Quality Coding Scale 6 Independent with activity with or without an assistive device 5 Patient requires set up or clean up by helper. Patient completes activity by themselves 4 Supervision or touching assist (CGA). [place] provide cues , steadying assist 3 The helper provides less than half the effort to complete the activity 2 The helper provides more than half the effort to complete the activity 1 Dependent. The helper does all the effort to complete an activity 7 Patient refused to complete or attempt activity 9 The patient did not perform the activity before the current illness or injury 88 Not attempted due to Medical conditions or safety concerns Weight Bearing Right Lower Extremity: Right Weight Bearing/Tolerated Left Lower Extremity: Left Weight Bearing/Tolerated Assessment Patient to dismiss to home on this date at a SBA to modified independent LOF with all gross motor skills. PT Fpc Goals Public Opinion Survey Taker Goals PT Public Opinion Survey Taker Goals Time Frame: May 22, 2017 Transfers (B,C,W/C) (FIM): 6 Gait (FIM): 6 Distance: 200' Gait Level of Assist: 6 Gait Assistive Device: FWW, Cane Single Point PT Plan Treatment/Plan Treatment Plan: Discontinue PT Treatment Plan: Bed Mobility, Functional Activity Favian, Functional Strength, Gait, Therapeutic Exercise, Transfers Treatment Duration: May 22, 2017 Frequency: 11 times per week Estimated Hrs Per Day: .5 hour per day Patient and/or Family Agrees t: Yes Time/GCodes Time In: 1242 Time Out: 1245 Total Billed Treatment Time: 3 Total Billed Treatment 1 visit DC G Codes Necessary: Yes PT/OT Therapy GCodes Therapy Functional Limitation: Physical Therapy Test(s)/Tool used to determine: FIM, Level of Assistance Scale Functional Limitation-Current Charge Code: MOBCUR Modifier: CK Functional Limitation-Goal Charge Code: MOBGOAL Modifier: CI Functional Limitation-D/C Charge Codes: MOBDC Modifier: ZECHARIAH JOSEPH PT May 19, 2017 12:54
--- NOTE | 2017-05-19 12:57 | Progress Note-Hospitalist ---
Standard Progress Note Progress Notes/Assess & Plan Date Seen 05/19/17 Time Seen by Provider: 12:51 Diagnosis UTI Assess & Plan/Chief Complaint The patient is in good spirits and reports that she continues to improve. The consensus with social service and physical therapy is that she is ready for discharge to home with home PT and a front wheeled walker. Her urine grew Pseudomonas and she should require a few more days of Cipro which can be done as an outpatient. Physical exam: She is alert and oriented again noted are the abrasions on her elbows and knees from crawling while down at home. Lungs are clear to auscultation. CV is regular without murmur. There is no pedal edema. Impression: Urinary tract infection with pseudomonas. 2.fall at home with at least 18 hours on the floor. 3.apparent neuromuscular disease with muscle wasting both lower extremities. Plan: See discharge instructions ROSELINE KHAN MD May 19, 2017 12:57
[2017-05-19] MEDS ORDERED: CIPR-225 PO (13:03)
--- NOTE | 2017-05-19 13:15 | D/C HH Face to Face Order ---
D/C Face to Face Orders Instructions for Patient Patient Instructions/FollowUp: Medications as listed on the discharge sequence. Physical therapy will be provided in your home. Wheeled walker Physician to follow Patient: Zeb Swann Discharge Diet for Home: Regular Diet Patient Problems: Urinary tract infection. Fall at home with prolonged time On floor. Apparent degenerative neuromuscular problem affecting lower extremities Goals for Patient: Improved performance and safety at home Patient Data-Allergies,Ht & Wt Patient Allergies: Coded Allergies: Nitrofurantoin Macrocrystal (Unverified Allergy, Unknown, RASH, 11/23/14) Penicillins (Unverified Allergy, Unknown, RASH, 11/23/14) egg (Verified Allergy, Unknown, 05/15/17) mushroom (Verified Allergy, Unknown, RASH, 05/15/17) soy (Verified Allergy, Unknown, RASH, 05/15/17) Height (Feet): 5 Height (Inches): 3.00 Weight (Pounds): 152 Weight (Ounces): 5.0 Home Health Need/Face to Face Date of Face to Face: May 19, 2017 Clinical Findings: Generalized weakness and fatigue, Instability, Muscle weakness I have seen Pt [id number]: Yes Discharged To: Home Diagnosis/Conditions: Neuromuscular weakness both lower extremities Problems/Diagnosis/Condition: Patient is Homebound due to: Muscle weakness Homebound Status Due to the above stated illness, injury or surgical procedure (medical condition or diagnosis) and associated clinical findings, the patient is homebound because of his/her inability to leave home except with aid of a supportive device and/or person AND leaving the home requires a considerable and taxing effort or is medically contraindicated. Pt req the following assistanc: Walker Home Health Nursing Orders Home Health Services Order: Physical Therapy-Evaluate & Treat Home Health Infusion Therapy Line Start Date: May 15, 2017 Line Start Time: 0345 Therapy Orders Therapy Orders: Physical Therapy Therapy Specific Orders: Increase strength/endurance Certify Stmt I certify that this patient is under my care and that I, a nurse practitioner or a physician; a graduate teaching assistant working with me, had a face to face encounter that - meets the physician face to face encounter requirements with this patient as dated. ROSELINE Rincon MD May 19, 2017 13:15
[2017-05-19] MEDS ORDERED: WALK1EAC23 MC (13:18)
== END 2017-05-19 13:03 | disposition home or self-care (01) ==
LOC: EDUNIT# 03:36 → ER 03:38 → UNDOADMOB 04:49 → 4TH 04:49
PROVIDERS: ADMIT Internal Medicine; ATTEND Internal Medicine
DX: E87.6 Hypokalemia (principal); N39.0 Urinary tract infection, site not specified; R53.1 Weakness; E86.1 Hypovolemia; D72.829 Elevated white blood cell count, unspecified; E11.9 Type 2 diabetes mellitus without complications; Z79.4 Long term (current) use of insulin; Z79.899 Other long term (current) drug therapy
CPT/HCPCS: 36415; 71010; 80048; 80053; 81000; 82550; 82962; 85007; 85025; 85027; 87077; 87088; 87186; 87804; 96361; 96365; G0378

== ENCOUNTER 2017-05-31 09:21 | Emergency (ER) | payer MEDICARE, OTHER ==
[~2017-05-31] VITALS: Ht 162.6 cm; Wt 68.0 kg
[~2017-05-31 09:21] MED LIST changes: +CIPR-225 PO; +INSU100I10 SC; +INSU100V SC; +ROPI3TAB2 PO; +TOPI100T11 PO; +WALK1EAC23 MC
--- OUTSIDE RECORDS SUMMARY | 2017-05-31 09:28 | XMS REPORT ---
Author Author RYNE CAMP Organization [facility] Address [address] [place] [address] Care Team Providers Care Computer Support Specialist Name Role Phone RYNE CAMP Unavailable PROBLEMS Type Condition ICD9-CM Code [id number] Code Onset Dates Condition Status SNOMED Code Problem Bipolar disorder, current episode depressed, moderate F31.32 Active 391849775 Problem Generalized anxiety disorder F41.1 Active [id number] ALLERGIES No Information SOCIAL HISTORY Never Assessed PLAN OF CARE Activity Details Follow Up prn Reason:depression and anxiety VITAL SIGNS MEDICATIONS Unknown Medications RESULTS No Results PROCEDURES Procedure Date Ordered Result Body Site Psychotherapy, patient &/family, 30 minutes, established patient December 03, 2016 IMMUNIZATIONS No Known Immunizations MEDICAL (GENERAL) HISTORY Type Description Date Surgical History Kidney Stent 02/2015 Surgical History Bladder prolapse 01/2016 Hospitalization History Septecimic/Bladder infection/Kidney Stones/Enlarged Gallbladder 02/2015 Hospitalization History Surgery
--- NOTE | 2017-05-31 10:43 | ED Back Pain ---
General Chief Complaint: Back Problems Stated Complaint: UTI Source of Information: Patient Exam Limitations: No Limitations History of Present Illness Time Seen by Provider: 10:41 Initial Comments To ER with a suspected urinary tract infection. She has right lower back and right lower abdominal pain. These are her typical symptoms when she gets a urinary tract infection. She denies fevers but reports mild nausea without vomiting. She just finished ciprofloxacin 2 days ago for a recurrent urinary tract infection. That is the second round of ciprofloxacin she's had for urinary tract infection in the past few weeks. She states that on Thursday when she finished the antibiotics she was feeling fine but the next day the low back pain recurred. Location: Lumbar Spine Timing/Duration: 1-2 Days Severity: Moderate Pain/Injury Location: Back Associated Symptoms: lower back pain Allergies and Home Medications Allergies Coded Allergies: Nitrofurantoin Macrocrystal (Unverified Allergy, Unknown, RASH, 11/23/14) Penicillins (Unverified Allergy, Unknown, RASH, 11/23/14) egg (Verified Allergy, Unknown, 05/15/17) mushroom (Verified Allergy, Unknown, RASH, 05/15/17) soy (Verified Allergy, Unknown, RASH, 05/15/17) Home Medications Carbidopa/Levodopa 1 Each Tablet, 1 TAB PO TID, (Reported) Ciprofloxacin HCl 500 Mg Tablet, 500 MG PO twice a day, #6 Prescribed by: ROSELINE KHAN on 05/19/17 1303 Fluoxetine HCl 40 Mg Capsule, 40 MG PO BID, (Reported) Insulin Glargine,Hum.rec.anlog 100 Unit/1 Ml Insuln.pen, 40 UNITS SC HS, ( Reported) Insulin Lispro 100 Unit/1 Ml Vial, 5-10 UNITS SC AC, (Reported) Metformin HCl 500 Mg Tablet, 500 MG PO BID, (Reported) Omeprazole 40 Mg Capsule.dr, 40 MG PO DAILY, (Reported) Oxybutynin Chloride 10 Mg Tab.er.24, 10 MG PO HS, (Reported) Ropinirole HCl 3 Mg Tablet, 3 MG PO HS, (Reported) Topiramate 100 Mg Tablet, 100 MG PO BID, (Reported) Constitutional: see HPI EENTM: see HPI Respiratory: no symptoms reported Cardiovascular: no symptoms reported Genitourinary: see HPI, No dysuria, No frequency Musculoskeletal: see HPI, back pain Skin: no symptoms reported Psychiatric/Neurological: No Symptoms Reported Past Xnyxhvz-Uacvbi-Jakqap Hx Patient Social History 2nd Hand Smoke Exposure: No Recent Foreign Travel: No Contact w/Someone Who Travel: No Recent Hopitalizations: No Immunizations Up To Date Tetanus Booster (TDap): Unknown PED Vaccines UTD: No Seasonal Allergies Seasonal Allergies: Yes Surgeries History of Surgeries: No Surgeries: Hysterectomy Respiratory History of Respiratory Disorde: No Cardiovascular History of Cardiac Disorders: No Neurological History of Neurological Disord: Yes (l5-s1 radiculopathy) Neurological Disorders: Parkinson's Disease Reproductive System Hx Reproductive Disorders: No Genitourinary History of Genitourinary Disor: Yes Genitourinary Disorders: Kidney Stones Gastrointestinal History of Gastrointestinal Di: Yes Gastrointestinal Disorders: Gastroesophageal Reflux Musculoskeletal History of Musculoskeletal Dis: Yes Musculoskeletal Disorders: Arthritis Endocrine History of Endocrine Disorders: Yes Endocrine Disorders: Diabetes, Insulin dep HEENT History of HEENT Disorders: No Cancer History of Cancer: No Psychosocial History of Psychiatric Problem: Yes Behavioral Health Disorders: Anxiety, Depression Integumentary History of Skin or Integumenta: No Blood Transfusions History of Blood Disorders: No Adverse Reaction to a Blood Tr: No Family Medical History Significant Family History: No Pertinent Family Hx Family Medial History: Patient reports no known family medical history. Physical Exam Vital Signs Vital Sign - Last 12Hours 05/31/17 10:36 Temp 97.9 Pulse 102 Resp 20 B/P (MAP) 142/74 Pulse Ox 100 O2 Delivery Room Air Capillary Refill : General Appearance: No Apparent Distress, WD/WN HEENT: PERRL/EOMI, TMs Normal Neck: Full Range of Motion, Normal Inspection Respiratory: No Accessory Muscle Use, No Respiratory Distress Gastrointestinal: Non Tender, Soft, Tenderness (right lower quadrant) Extremity: Normal Capillary Refill, Normal Inspection Neurologic/Psychiatric: Alert, Oriented x3 Skin: Normal Color, Warm/Dry Progress/Results/Core Measures Results/Orders Lab Results Laboratory Tests Test 05/31/17 10:12 05/31/17 10:53 Range/Units Urine Color YELLOW Urine Clarity SLIGHTLY CLOUDY Urine pH 6.5 5-9 Urine Specific [place] 1.010 L 1.016-1.022 Urine Protein NEGATIVE NEGATIVE Urine Glucose (UA) NEGATIVE NEGATIVE Urine Ketones NEGATIVE NEGATIVE Urine Nitrite NEGATIVE NEGATIVE Urine Bilirubin NEGATIVE NEGATIVE Urine Urobilinogen NORMAL NORMAL MG/DL Urine Leukocyte Esterase 2+ H NEGATIVE Urine RBC (Auto) NEGATIVE NEGATIVE Urine RBC NONE /HPF Urine WBC 25-50 H /HPF Urine Squamous Epithelial Cells 5-10 /HPF Urine Crystals NONE /LPF Urine Bacteria TRACE /HPF Urine Casts NONE /LPF Urine Mucus NEGATIVE /LPF Urine Culture Indicated YES White Blood Count 7.2 4.3-11.0 10^3/uL Red Blood Count 4.41 4.35-5.85 10^6/uL Hemoglobin 12.5 11.5-16.0 G/DL Hematocrit 37 35-52 % Mean Corpuscular Volume 85 80-99 FL Mean Corpuscular Hemoglobin 28 25-34 PG Mean Corpuscular Hemoglobin Concent 34 32-36 G/DL Red Cell Distribution Width 15.1 H 10.0-14.5 % Platelet Count 439 H 130-400 10^3/uL Mean Platelet Volume 9.1 7.4-10.4 FL Neutrophils (%) (Auto) 70 42-75 % Lymphocytes (%) (Auto) 21 12-44 % Monocytes (%) (Auto) 7 0-12 % Eosinophils (%) (Auto) 1 0-10 % Basophils (%) (Auto) 0 0-10 % Neutrophils # (Auto) 5.1 1.8-7.8 X 10^3 Lymphocytes # (Auto) 1.5 1.0-4.0 X 10^3 Monocytes # (Auto) 0.5 0.0-1.0 X 10^3 Eosinophils # (Auto) 0.1 0.0-0.3 10^3/uL Basophils # (Auto) 0.0 0.0-0.1 10^3/uL Sodium Level 140 135-145 MMOL/L Potassium Level 3.2 L 3.6-5.0 MMOL/L Chloride Level 108 H 98-107 MMOL/L Carbon Dioxide Level 21 21-32 MMOL/L Anion Gap 11 5-14 MMOL/L Blood Urea Nitrogen 10 7-18 MG/DL Creatinine 0.86 0.60-1.30 MG/DL Estimat Glomerular Filtration Rate > 60 BUN/Creatinine Ratio 12 Glucose Level 114 H 70-105 MG/DL Calcium Level 9.2 8.5-10.1 MG/DL My Orders Orders - SOFY AVINA APRN Ua Culture If Indicated (05/31/17 10:36) Cbc With Automated Diff (05/31/17 10:40) Basic Metabolic Panel (05/31/17 10:40) Ct Abd/Pelvis Wo(Kidney Stone) (05/31/17 10:40) Potassium Chloride (Tablet) (Klor Con Ta (05/31/17 11:30) Urine Culture (05/31/17 10:12) Vital Signs/I&O Vital Sign - Last 12Hours 05/31/17 10:36 Temp 97.9 Pulse 102 Resp 20 B/P (MAP) 142/74 Pulse Ox 100 O2 Delivery Room Air Diagnostic Imaging Diagonstic Imaging: CT Comments NAME: TIN FRANCO [facility] REC#: [id number] PT STATUS: REG ER : 1950 PHYSICIAN: SOFY AVIAN PROPERTY LOSS INSURANCE CLAIM ADJUSTER ADMIT DATE: 05/31/17/ER Draft Date of Exam:05/31/17 CT ABD/PELVIS WO(KIDNEY STONE) PROCEDURE: CT urinary tract, rule out kidney stone. TECHNIQUE: Multiple contiguous axial images were obtained through the abdomen and pelvis without the use of intravenous contrast. INDICATION: Right flank pain, recurrent urinary tract infections. Compared to 11/01/2015. There is no opaque stone along the course of the nondilated right ureter. Left ureter also without calculi. There is progressive collecting system and renal pelvic calculus disease bilaterally without hydronephrosis, perinephric or periureteric edema. Some mild induration in the bilateral perinephric fat owing to scarring chronic. The liver, gallbladder, spleen, adrenals and pancreas are unremarkable. Aorta is nonaneurysmal. The air-containing appendix visualized and unremarkable. There is no diverticulitis. The unopacified urinary bladder unremarkable. The uterus is atrophic or absent, there is no adnexal lesion. There is no pelvic ascites. No mass or fluid collection. No pneumatosis or free gas. The lung bases, nonacute. IMPRESSION: Progressive bilateral intrarenal calcifications without hydronephrosis. No opaque ureteral or bladder stone. No adnexal lesion. No appendicitis or diverticulitis. No acute appearing abnormality. Dictated on workstation # [id number] Dict: 05/31/17 1104 Trans: 05/31/17 1115 [facility] [id number] Interpreted by: LENA MOON Electronically signed by: Departure Impression Impression: Primary Impression: Urinary tract infection Disposition: HOME, SELF-CARE Condition: Stable Departure-Patient Inst. Decision time for Depature: 11:24 Referrals: RIVKA PAGE DO (PCP/Family) Primary Care Physician Patient Instructions: Urinary Tract Infection, Adult (DC) Add. Discharge Instructions: 1. Antibiotics as directed 2. See your doctor next week for recheck 3. Return to ER for any worsening. All discharge instructions reviewed with patient and/or family. Voiced understanding. Scripts Ciprofloxacin HCl (Cipro) 500 Mg Tablet 500 MG PO BID, #20 TAB Prov: SOFY AVINA APRN 05/31/17 Copy Copies To 1: RIVKA PAGE PETER J APRN May 31, 2017 10:43
[2017-05-31 11:07] LABS: BASOPHILS % (AUTO) 0 % (0-10); EOSINOPHILS # (AUTO) 0.1 10^3/uL (0.0-0.3); EOSINOPHILS % (AUTO) 1 % (0-10); LYMPHOCYTES # (AUTO) 1.5 X 10^3 (1.0-4.0); LYMPHOCYTES % (AUTO) 21 % (12-44); MEAN CORPUSCULAR HEMOGLOBIN 28 PG (25-34); MEAN CORPUSCULAR HGB CONC 34 G/DL (32-36); MEAN CORPUSCULAR VOLUME 85 FL (80-99); MEAN PLATELET VOLUME 9.1 FL (7.4-10.4); MONOCYTES # (AUTO) 0.5 X 10^3 (0.0-1.0); MONOCYTES % (AUTO) 7 % (0-12); NEUTROPHILS # (AUTO) 5.1 X 10^3 (1.8-7.8); NEUTROPHILS % (AUTO) 70 % (42-75); PLATELET COUNT 439 10^3/uL (130-400); RED BLOOD COUNT 4.41 10^6/uL (4.35-5.85); RED CELL DISTRIBUTION WIDTH 15.1 % (10.0-14.5); WHITE BLOOD COUNT 7.2 10^3/uL (4.3-11.0)
--- NOTE | 2017-05-31 11:15 | Diagnostic Imaging Report ---
PROCEDURE: CT urinary tract, rule out kidney stone. TECHNIQUE: Multiple contiguous axial images were obtained through the abdomen and pelvis without the use of intravenous contrast. INDICATION: Right flank pain, recurrent urinary tract infections. Compared to 11/01/2015. There is no opaque stone along the course of the nondilated right ureter. Left ureter also without calculi. There is progressive collecting system and renal pelvic calculus disease bilaterally without hydronephrosis, perinephric or periureteric edema. Some mild induration in the bilateral perinephric fat owing to scarring chronic. The liver, gallbladder, spleen, adrenals and pancreas are unremarkable. Aorta is nonaneurysmal. The air-containing appendix visualized and unremarkable. There is no diverticulitis. The unopacified urinary bladder unremarkable. The uterus is atrophic or absent, there is no adnexal lesion. There is no pelvic ascites. No mass or fluid collection. No pneumatosis or free gas. The lung bases, nonacute. IMPRESSION: Progressive bilateral intrarenal calcifications without hydronephrosis. No opaque ureteral or bladder stone. No adnexal lesion. No appendicitis or diverticulitis. No acute appearing abnormality. Dictated by: Dictated on workstation # [id number]
[2017-05-31 11:20] LABS: ANION GAP 11 MMOL/L (5-14); BLOOD UREA NITROGEN 10 MG/DL (7-18); BUN/CREATININE RATIO 12; CALCIUM 9.2 MG/DL (8.5-10.1); CARBON DIOXIDE 21 MMOL/L (21-32); CHLORIDE 108 MMOL/L (98-107); CREATININE SERUM 0.86 MG/DL (0.60-1.30); GFR ESTIMATED > 60; GLUCOSE 114 MG/DL (70-105); POTASSIUM 3.2 MMOL/L (3.6-5.0); SODIUM 140 MMOL/L (135-145)
[2017-05-31 11:21] LABS: BILIRUBIN,URINE NEGATIVE (NEGATIVE); KETONES,URINE NEGATIVE (NEGATIVE); LEUKOCYTE ESTERASE ,URINE 2+ (NEGATIVE); NITRITE,URINE NEGATIVE (NEGATIVE); PH,URINE 6.5 (5-9); PROTEIN,URINE NEGATIVE (NEGATIVE); UROBILINOGEN,URINE NORMAL (NORMAL)
[2017-05-31 11:22] LABS: WBC,URINE 25-50 /HPF
[2017-05-31] MEDS ORDERED: CIPR-225 PO (11:27)
[2017-05-31] MEDS ORDERED: KCL 10 MEQ TAB (MICRO K) PO ONE (11:30)
[2017-05-31] MEDS ORDERED: CIPROFLOXACIN 500 MG (CIPRO) TABLET PO SCH (11:30)
[2017-05-31 11:34] VITALS: BP 128/71
== END 2017-05-31 11:34 | disposition home or self-care (01) ==
LOC: EDUNIT# 09:21 → ER 09:22
DX: N39.0 Urinary tract infection, site not specified (principal); F41.9 Anxiety disorder, unspecified; F32.9 Major depressive disorder, single episode, unspecified; E11.9 Type 2 diabetes mellitus without complications; K21.9 Gastro-esophageal reflux disease without esophagitis; G20 Parkinson's disease; Z87.442 Personal history of urinary calculi; Z90.710 Acquired absence of both cervix and uterus; Z79.4 Long term (current) use of insulin
CPT/HCPCS: 36415; 74176; 80048; 81000; 85025; 87088; 99283

== ENCOUNTER → 2017-06-11 | Outpatient (CLI) | payer MEDICARE, OTHER ==
[2017-06-11 10:44] LABS: PEP REPORT SEE PATH REPORT
[2017-06-11 11:04] LABS: MEAN PLATELET VOLUME 9.1 FL (7.4-10.4); RED BLOOD COUNT 4.39 10^6/uL (4.35-5.85); RED CELL DISTRIBUTION WIDTH 14.9 % (10.0-14.5); WHITE BLOOD COUNT 6.4 10^3/uL (4.3-11.0)
[2017-06-11 11:24] LABS: ALANINE AMINOTRANSFERASE < 6 U/L (0-55); ALBUMIN 4.1 GM/DL (3.2-4.5); ANION GAP 10 MMOL/L (5-14); ASPARTATE AMINO TRANSFERASE 23 U/L (5-34); BILIRUBIN,TOTAL 0.5 MG/DL (0.1-1.0); BLOOD UREA NITROGEN 8 MG/DL (7-18); BUN/CREATININE RATIO 8; CALCIUM 9.3 MG/DL (8.5-10.1); CARBON DIOXIDE 21 MMOL/L (21-32); CHLORIDE 107 MMOL/L (98-107); CREATINE KINASE 59 U/L (29-168); CREATININE SERUM 0.97 MG/DL (0.60-1.30); GFR ESTIMATED 58; GLUCOSE 154 MG/DL (70-105); POTASSIUM 3.3 MMOL/L (3.6-5.0); SODIUM 138 MMOL/L (135-145); hs C REACTIVE PROTEIN 0.29 MG/DL (0.00-0.50)
[2017-06-11 11:53] LABS: THYROID STIMULATING HORMONE 0.42 UIU/ML (0.35-4.94)
[2017-06-13 13:59] LABS: ALDOLASE 1.7 U/L (1.5-8.1)
== END ==
LOC: LAB 10:16
PROVIDERS: ATTEND Psychiatry & Neurology Neurology
DX: G20 Parkinson's disease (principal); M79.605 Pain in left leg
CPT/HCPCS: 36415; 80053; 82085; 82550; 82607; 83036; 83605; 84155; 84165; 84439; 84443; 85027; 85652; 86038; 86141; 86160; 86225; 86235

== ENCOUNTER 2017-08-01 08:15 | Inpatient (IN) | payer MEDICARE, OTHER ==
[~2017-08-01] VITALS: Ht 160 cm; Wt 59.4 kg
[~2017-08-01 08:15] MED LIST changes: +ACHD5005 PO; -HYDR-3812 PO
[2017-08-01 09:23] LABS: BILIRUBIN,URINE NEGATIVE (NEGATIVE); CLARITY,URINE SLIGHTLY CLOUDY; COLOR,URINE YELLOW; GLUCOSE, URINE (UA) NEGATIVE (NEGATIVE); KETONES,URINE NEGATIVE (NEGATIVE); LEUKOCYTE ESTERASE ,URINE 3+ (NEGATIVE); NITRITE,URINE POSITIVE (NEGATIVE); PH,URINE 6.5 (5-9); PROTEIN,URINE 1+ (NEGATIVE); UROBILINOGEN,URINE NORMAL (NORMAL)
--- NOTE | 2017-08-01 09:45 | Diagnostic Imaging Report ---
PROCEDURE: CT head and CT cervical spine without contrast. TECHNIQUE: Multiple contiguous axial images were obtained through the brain and cervical spine without the use of intravenous contrast. Sagittal and coronal reformations through the cervical spine were then performed. INDICATION: Fall, head and neck pain. COMPARISON: CT head 03/11/2016. FINDINGS: CT head: There is some age-related cerebral volume loss with slight chronic small vessel ischemic changes. There is no midline shift or mass effect. There is no hemorrhage or evidence of acute ischemia. Scalp hematoma is seen in left posterior parietal region. There is no underlying skull fracture. Paranasal sinuses and mastoids are clear. IMPRESSION: No acute intracranial abnormalities. CT cervical spine: Alignment is normal. There is no subluxation or fracture. Multilevel degenerative changes are seen throughout the disc spaces and facet joints. Large central canal osteophytosis is seen projecting superiorly off of the posterior aspect of the C3 vertebral body. There is likely central canal stenosis in this region or at this level. No osseous lesion is identified. IMPRESSION: No traumatic malalignment or fracture. Dictated by: Dictated on workstation # [id number]
[2017-08-01 09:46] LABS: BACTERIA,URINE MODERATE /HPF; WBC,URINE >100 /HPF
[2017-08-01 09:49] LABS: BASOPHILS % (AUTO) 0 % (0-10); EOSINOPHILS % (AUTO) 0 % (0-10); HEMATOCRIT 37 % (35-52); HEMOGLOBIN 12.4 G/DL (11.5-16.0); LYMPHOCYTES # (AUTO) 1.5 X 10^3 (1.0-4.0); LYMPHOCYTES % (AUTO) 14 % (12-44); MEAN CORPUSCULAR HEMOGLOBIN 28 PG (25-34); MEAN CORPUSCULAR HGB CONC 34 G/DL (32-36); MEAN CORPUSCULAR VOLUME 83 FL (80-99); MEAN PLATELET VOLUME 9.2 FL (7.4-10.4); MONOCYTES # (AUTO) 0.7 X 10^3 (0.0-1.0); MONOCYTES % (AUTO) 7 % (0-12); NEUTROPHILS # (AUTO) 8.7 X 10^3 (1.8-7.8); NEUTROPHILS % (AUTO) 79 % (42-75); PLATELET COUNT 388 10^3/uL (130-400); RED BLOOD COUNT 4.47 10^6/uL (4.35-5.85); RED CELL DISTRIBUTION WIDTH 14.8 % (10.0-14.5)
[2017-08-01] MEDS ORDERED: NS IV 1000 ML 1,000 ML IV ONE (09:52)
[2017-08-01] MEDS ORDERED: cefTRIAXone INJECTION 1,000 MG in D5W 50 ML IVPB SOLUTION 50 ML IV ONE (10:00)
[2017-08-01] MEDS ORDERED: TETANUS,DIPTH,PERTUSS P/F (BOOSTRIX) 0.5 ML VIAL IM ONE (10:00)
[2017-08-01 10:08] LABS: ALANINE AMINOTRANSFERASE < 6 U/L (0-55); ALBUMIN 4.1 GM/DL (3.2-4.5); ALKALINE PHOSPHATASE 86 U/L (40-136); BILIRUBIN,TOTAL 0.4 MG/DL (0.1-1.0); BUN/CREATININE RATIO 10; CALCIUM 9.4 MG/DL (8.5-10.1); CARBON DIOXIDE 19 MMOL/L (21-32); CHLORIDE 106 MMOL/L (98-107); CREATININE SERUM 1.02 MG/DL (0.60-1.30); GFR ESTIMATED 54; GLUCOSE 134 MG/DL (70-105); POTASSIUM 3.7 MMOL/L (3.6-5.0); SODIUM 137 MMOL/L (135-145)
[2017-08-01] MEDS ORDERED: CEPH-507 PO (11:49)
--- NOTE | 2017-08-01 11:51 | ED Fall/Injury ---
General Chief Complaint: Trauma-Non Activation Stated Complaint: FALL, HEAD BLEEDING Nursing Triage Note: PT REPORTS SHE WAS WALKING TO THE LAUNDRY MAT AND FELL AND HIT HER HEAD. PT DENIES LOC OR NECK PAIN. PT HAS HEMATOMA TO POSTERIOR SIDE OF HEAD. Source: patient, old records Exam Limitations: no limitations History of Present Illness Date Seen by Provider: Aug 01, 2017 Time Seen by Provider: 08:55 Initial Comments This pleasant 66-year-old woman drove herself to the emergency room today after having a fall while walking to the laundry mat. She normally walks with a walker but needed to carry her laundry basket today. She therefore attempted to walk without the walker while carrying the laundry basket. She fell backwards striking the back of her head. She has bleeding and a small hematoma. No laceration requiring repair can be seen. Patient denies loss of consciousness. She denies any other injury. She does have abrasions on her knees that are older in age from prior falls as well. She states she has chronic neurologic problems with her lower extremities that cause weakness and require her to use a walker. Her mucous membranes are a little dry and she reports vomiting once yesterday. She thought the vomiting was due to use of MiraLAX that she took because she felt constipated at the time. She has history of urinary tract infections and states she sometimes feels like it is difficult to empty her bladder. She has mild head pain and denies any neck pain. Location Injury Occurred: [address] Allergies and Home Medications Allergies Coded Allergies: Nitrofurantoin Macrocrystal (Unverified Allergy, Unknown, RASH, 11/23/14) Penicillins (Unverified Allergy, Unknown, RASH, 11/23/14) egg (Verified Allergy, Unknown, 05/15/17) mushroom (Verified Allergy, Unknown, RASH, 05/15/17) soy (Verified Allergy, Unknown, RASH, 05/15/17) Home Medications Aripiprazole 10 Mg Tablet, 10 MG PO DAILY, (Reported) Carbidopa/Levodopa 1 Each Tablet, 1 TAB PO TID, (Reported) Fluoxetine HCl 40 Mg Capsule, 40 MG PO BID, (Reported) Hydrocodone/Acetaminophen 1 Each Tablet, 1 TAB PO Q6H PRN for PAIN-MODERATE, ( Reported) Metformin HCl 500 Mg Tablet, 500 MG PO BID, (Reported) Omeprazole 40 Mg Capsule.dr, 40 MG PO DAILY, (Reported) Oxybutynin Chloride 10 Mg Tab.er.24, 10 MG PO HS, (Reported) Ropinirole HCl 3 Mg Tablet, 3 MG PO HS, (Reported) Topiramate 100 Mg Tablet, 100 MG PO BID, (Reported) Constitutional: no symptoms reported Eyes: No Symptoms Reported Ears, Nose, Mouth, Throat: see HPI Respiratory: no symptoms reported Cardiovascular: no symptoms reported Gastrointestinal: see HPI Genitourinary: see HPI : No Musculoskeletal: see HPI Skin: see HPI Psychiatric/Neurological: See HPI Past Dfjkerc-Vyorpz-Stnctu Hx Patient Social History Alcohol Use: Denies Use Recreational Drug Use: No Smoking Status: Never a Smoker 2nd Hand Smoke Exposure: No Recent Foreign Travel: No Contact w/Someone Who Travel: No Recent Infectious Disease Expo: No Recent Hopitalizations: No Physical Abuse: No Sexual Abuse: No Mistreated: No Fear: No Immunizations Up To Date Tetanus Booster (TDap): Unknown PED Vaccines UTD: No Seasonal Allergies Seasonal Allergies: Yes Surgeries History of Surgeries: Yes Surgeries: Bladder Surgery, Hysterectomy, Tonsillectomy Respiratory History of Respiratory Disorde: No Cardiovascular History of Cardiac Disorders: No Neurological History of Neurological Disord: Yes (l5-s1 radiculopathy, MUSCLE WASTING IN LEGS) Neurological Disorders: Parkinson's Disease Reproductive System Hx Reproductive Disorders: No Genitourinary History of Genitourinary Disor: Yes Genitourinary Disorders: Kidney Stones Gastrointestinal History of Gastrointestinal Di: Yes Gastrointestinal Disorders: Gastroesophageal Reflux Musculoskeletal History of Musculoskeletal Dis: Yes Musculoskeletal Disorders: Arthritis Endocrine History of Endocrine Disorders: Yes Endocrine Disorders: Diabetes, Non-Insulin dep HEENT History of HEENT Disorders: No Cancer History of Cancer: No Psychosocial History of Psychiatric Problem: Yes Behavioral Health Disorders: Anxiety, Depression Suicide Risk Score: 0 Integumentary History of Skin or Integumenta: No Blood Transfusions History of Blood Disorders: No Adverse Reaction to a Blood Tr: No Family Medical History Significant Family History: No Pertinent Family Hx Family Medial History: Patient reports no known family medical history. Physical Exam Vital Signs Vital Sign - Last 12Hours 08/01/17 08:37 Temp 98.0 Pulse 100 Resp 18 B/P (MAP) 143/74 (97) Pulse Ox 100 Capillary Refill : Less Than 3 Seconds General Appearance: WD/WN, no apparent distress HEENT: PERRL/EOMI, other (Oropharynx somewhat dry. There is a small hematoma about 3 cm in diameter on the posterior scalp. There is associated mashed and contused skin but no repairable laceration. 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-XII nml as tested, no motor/sensory deficits, alert, normal mood/affect, oriented x 3 Skin: normal color, warm/dry, other (See HEENT and extremity exams) Hannah Coma Score Best Eye Response: (4) Open Spontaneously Best Verbal Response: (5) Oriented Best Motor Response: (6) Obeys Commands Hannah Total: 15 Progress/Results/Core Measures Results/Orders Lab Results Laboratory Tests Test 08/01/17 09:15 08/01/17 09:38 Range/Units Urine Color YELLOW Urine Clarity SLIGHTLY CLOUDY Urine pH 6.5 5-9 Urine Specific [place] 1.010 L 1.016-1.022 Urine Protein 1+ H NEGATIVE Urine Glucose (UA) NEGATIVE NEGATIVE Urine Ketones NEGATIVE NEGATIVE Urine Nitrite POSITIVE H NEGATIVE Urine Bilirubin NEGATIVE NEGATIVE Urine Urobilinogen NORMAL NORMAL MG/DL Urine Leukocyte Esterase 3+ H NEGATIVE Urine RBC (Auto) 2+ H NEGATIVE Urine RBC NONE /HPF Urine WBC >100 H /HPF Urine Crystals NONE /LPF Urine Bacteria MODERATE H /HPF Urine Casts NONE /LPF Urine Mucus /LPF Urine Culture Indicated YES White Blood Count 11.0 4.3-11.0 10^3/uL Red Blood Count 4.47 4.35-5.85 10^6/uL Hemoglobin 12.4 11.5-16.0 G/DL Hematocrit 37 35-52 % Mean Corpuscular Volume 83 80-99 FL Mean Corpuscular Hemoglobin 28 25-34 PG Mean Corpuscular Hemoglobin Concent 34 32-36 G/DL Red Cell Distribution Width 14.8 H 10.0-14.5 % Platelet Count 388 130-400 10^3/uL Mean Platelet Volume 9.2 7.4-10.4 FL Neutrophils (%) (Auto) 79 H 42-75 % Lymphocytes (%) (Auto) 14 12-44 % Monocytes (%) (Auto) 7 0-12 % Eosinophils (%) (Auto) 0 0-10 % Basophils (%) (Auto) 0 0-10 % Neutrophils # (Auto) 8.7 H 1.8-7.8 X 10^3 Lymphocytes # (Auto) 1.5 1.0-4.0 X 10^3 Monocytes # (Auto) 0.7 0.0-1.0 X 10^3 Eosinophils # (Auto) 0.0 0.0-0.3 10^3/uL Basophils # (Auto) 0.0 0.0-0.1 10^3/uL Sodium Level 137 135-145 MMOL/L Potassium Level 3.7 3.6-5.0 MMOL/L Chloride Level 106 98-107 MMOL/L Carbon Dioxide Level 19 L 21-32 MMOL/L Anion Gap 12 5-14 MMOL/L Blood Urea Nitrogen 10 7-18 MG/DL Creatinine 1.02 0.60-1.30 MG/DL Estimat Glomerular Filtration Rate 54 BUN/Creatinine Ratio 10 Glucose Level 134 H 70-105 MG/DL Calcium Level 9.4 8.5-10.1 MG/DL Total Bilirubin 0.4 0.1-1.0 MG/DL Aspartate Amino Transf (AST/SGOT) 28 5-34 U/L Alanine Aminotransferase (ALT/SGPT) < 6 0-55 U/L Alkaline Phosphatase 86 40-136 U/L Total Protein 8.0 6.4-8.2 GM/DL Albumin 4.1 3.2-4.5 GM/DL Micro Results Microbiology 08/01/17 Urine Culture - Preliminary, Resulted Pseudomonas Aeruginosa My Orders Orders - DARIEL TREVIZO MD Cbc With Automated Diff (08/01/17 09:03) Comprehensive Metabolic Panel (08/01/17 09:03) Ua Culture If Indicated (08/01/17 09:03) Saline Lock/Iv-Start (08/01/17 09:03) Ct Head/Cervical Spine Wo (08/01/17 09:03) Urine Culture (08/01/17 09:15) Dipht,Pertuss(Acell),Tet Adult (Boostrix (08/01/17 10:00) Ceftriaxone Injection (Rocephin Injectio (08/01/17 10:00) Ns Iv 1000 Ml (Sodium Chloride 0.9%) (08/01/17 09:52) Ct Head/Cervical Spine Wo (08/01/17 12:02) Ct Thoracic/Lumbar Spine Wo (08/01/17 12:02) Chest 1 View, Ap/Pa Only (08/01/17 12:02) Ondansetron Injection (Zofran Injectio (08/01/17 12:15) Ondansetron Injection (Zofran Injectio (08/01/17 12:15) Acetaminophen Tablet (Tylenol Tablet) (08/01/17 14:15) Medications Given in ED Vital Signs/I&O Vital Sign - Last 12Hours 08/01/17 08/01/17 08:37 10:46 Temp 98.0 98.0 Pulse 100 100 Resp 18 18 B/P (MAP) 143/74 (97) 143/74 (97) Pulse Ox 100 100 Blood Pressure Mean: 97 Progress Note : Time: 12:05 Progress Note Patient was found to have a significant urinary tract infection. Rocephin was administered for initial treatment. She was also given a liter of IV fluids. The wound and small hematoma on the posterior scalp required no repair. The wound area appeared more macerated/mashed and bleeding stopped on its own. I was preparing to discharge the patient and working on antibiotic selection when she was heard falling in the exam room and hollering for help. I rushed into the room to find her flat on her back with a small pool of blood behind her head. She had attempted to get up and go to the restroom on her own and fell backward even with the use of her walker. She had previously used the call light to summon staff when needing to get up but did not use the call light this time. Patient was lifted to the bed with the assistance of 4 ER staff members. C-collar was placed prior to lifting patient. CT of the head, cervical spine, thoracicolumbar spine, and chest x-ray were ordered. No new injuries were found. Hemostasis of the scalp hematoma was achieved with direct pressure alone. The hematoma did increase in size after the fall. There again was no repairable wound to suture. Patient remained alert and oriented. At this point it was deemed necessary to admit the patient as she has had multiple falls in a very short period of time. Dr. Moya was contacted and agrees to admission. We will select meropenem as the next antibiotic to treat her urinary tract infection as she has been on multiple rounds of fluoroquinolones in the past and continues to have recurrent UTI. Cultures from prior encounters were reviewed. Patient received Tylenol for pain in the ER. Dr. Arriola was consulted and personally presented to the emergency room to examine the patient. C-collar was removed upon his evaluation and review of the CT scans. Diagnostic Imaging Diagonstic Imaging: CT Plain Films/CT/US/NM/MRI: c-spine, head Comments CT head and cervical spine viewed by me and report reviewed. See report below: NAME: TIN FRANCO [facility] REC#: [id number] PT STATUS: REG ER : 1950 PHYSICIAN: DARIEL TREVIZO MD ADMIT DATE: 08/01/17/ER Signed Date of Exam: 08/01/17 CT HEAD/CERVICAL SPINE WO PROCEDURE: CT head and CT cervical spine without contrast. TECHNIQUE: Multiple contiguous axial images were obtained through the brain and cervical spine without the use of intravenous contrast. Sagittal and coronal reformations through the cervical spine were then performed. INDICATION: Fall, head and neck pain. COMPARISON: CT head 03/11/2016. FINDINGS: CT head: There is some age-related cerebral volume loss with slight chronic small vessel ischemic changes. There is no midline shift or mass effect. There is no hemorrhage or evidence of acute ischemia. Scalp hematoma is seen in left posterior parietal region. There is no underlying skull fracture. Paranasal sinuses and mastoids are clear. IMPRESSION: No acute intracranial abnormalities. CT cervical spine: Alignment is normal. There is no subluxation or fracture. Multilevel degenerative changes are seen throughout the disc spaces and facet joints. Large central canal osteophytosis is seen projecting superiorly off of the posterior aspect of the C3 vertebral body. There is likely central canal stenosis in this region or at this level. No osseous lesion is identified. IMPRESSION: No traumatic malalignment or fracture. Dictated by: Dictated on workstation # [id number] Dict: 08/01/17 0927 Trans: 08/01/17 1005 Interpreted by: ABRIL MANCINI Electronically signed by: ABRIL MANCINI 08/01/17 1005 Diagonstic Imaging: CT Plain Films/CT/US/NM/MRI: other (Thoracolumbar spine) Comments CT of the thoracic or lumbar spine viewed by me and report reviewed. See report below: NAME: TIN FRANCO [facility] REC#: [id number] PT STATUS: REG ER : 1950 PHYSICIAN: DARIEL TREVIZO MD ADMIT DATE: 08/01/17/ER Signed Date of Exam: 08/01/17 CT THORACIC/LUMBAR SPINE WO INDICATION: Fall, back pain. TECHNIQUE: Axial noncontrast CT of the thoracic and lumbar spine, with sagittal and coronal reformats. COMPARISON: None FINDINGS: The vertebral body heights are preserved. There are degenerative changes throughout the thoracic and lumbar spine with flowing anterior osteophytes consistent with diffuse idiopathic skeletal hyperostosis in the thoracic spine. There is multilevel disc height loss. There is partial fusion of the anterior vertebral bodies at T10-T11. Alignment of the thoracic and lumbar spine appears normal without significant spondylolisthesis. There is no evidence of spinal canal stenosis. There is foraminal stenosis at L5-S1 bilaterally. No bony fragments or epidural fluid collections are seen in the spinal canal. There is mild irregularity of the left L1 transverse process, which appears to be from a remote fracture. No acute fracture or dislocation is seen. There is atelectasis in the dependent lungs bilaterally. A calcified granuloma is seen in the right lower lobe. A small hiatal hernia is present. There are multiple renal calculi bilaterally, without hydronephrosis. IMPRESSION: 1. Moderate multilevel degenerative changes in the thoracic and lumbar spine without acute fracture or malalignment seen. 2. Small hiatal hernia. 3. Nephrolithiasis. Dictated by: Dictated on workstation # [id number] Dict: 08/01/17 1237 Trans: 08/01/17 1253 Interpreted by: PERI ELAM MD Diagonstic Imaging: CT Plain Films/CT/US/NM/MRI: c-spine, head Comments Repeat CT head and cervical spine obtained after fall in the exam room was viewed by me and report reviewed. See report below: NAME: TIN FRANCO [facility] REC#: [id number] PT STATUS: REG ER : 1950 PHYSICIAN: DARIEL TREVIZO MD ADMIT DATE: 08/01/17/ER Signed Date of Exam: 08/01/17 CT HEAD/CERVICAL SPINE WO PROCEDURE: CT head and CT cervical spine without contrast. TECHNIQUE: Multiple contiguous axial images were obtained through the brain and cervical spine without the use of intravenous contrast. Sagittal and coronal reformations through the cervical spine were then performed. INDICATION: Fall today, in the emergency room. COMPARISON: CT head from the same day. FINDINGS: CT HEAD: There is a large hematoma at the left posterior scalp which is increased in size since the prior study, now measuring 7.5 x 1.5 cm in the axial plane. There is soft tissue gas consistent with laceration, as well. No findings of a calvarium fracture is seen. The ventricles and cortical sulci are mildly prominent. No acute intracranial hemorrhage is seen. There is no CT evidence of acute territorial ischemia. There is no midline shift or mass effect. The paranasal sinuses are clear. CT CERVICAL SPINE: Alignment of the cervical spine appears normal. No acute fracture or malalignment is seen. There are mild multilevel degenerative changes in the cervical spine, with multilevel disc osteophyte complexes, and mild multilevel facet arthropathy. The prevertebral soft tissues are unremarkable. No bony fragments or hyperdense fluid collections are seen in the spinal canal. A small calcified nodule is seen in the right thyroid gland. Otherwise, the soft tissues about the neck are unremarkable. IMPRESSION: 1. Large hematoma at the left posterior scalp has increased in size since the prior study. No calvarium fracture or acute intracranial hemorrhage is seen. No CT evidence of acute territorial ischemia. 2. Degenerative changes in the cervical spine without acute osseous abnormality seen. Dictated by: Dictated on workstation # [id number] Dict: 08/01/17 1229 Trans: 08/01/17 1253 Interpreted by: PERI ELAM MD Electronically signed by: PERI ELAM MD 08/01/17 1253 Diagonstic Imaging: Xray Plain Films/CT/US/NM/MRI: chest Comments NAME: TIN FRANCO [facility] REC#: [id number] PT STATUS: REG ER : 1950 PHYSICIAN: DARIEL TREVIZO MD ADMIT DATE: 08/01/17/ER Signed Date of Exam: 08/01/17 CHEST 1 VIEW, AP/PA ONLY INDICATION: Fall. COMPARISON: 05/15/2017. FINDINGS: Single view of the chest demonstrates clear lungs bilaterally. The heart is normal. There is no pneumothorax. The osseous structures are normal. IMPRESSION: Negative chest. Dictated by: Dictated on workstation # [id number] Dict: 08/01/17 1237 Trans: 08/01/17 1246 Interpreted by: ABRIL MANCINI Electronically signed by: ABRIL MANCINI 08/01/17 1246 Departure Communication (Admissions) Time/Spoke to Admitting Phy: 13:[address] Moya Time/Spoke to Consulting Phy: 13:00 Communication/Consulting Dr. Arriola Impression Impression: Primary Impression: Multiple falls Additional Impressions: Scalp hematoma Qualified Codes: S00.03XA - Contusion of scalp, initial encounter Urinary tract infection Qualified Codes: N39.0 - Urinary tract infection, site not specified Disposition: HOME, SELF-CARE Condition: Improved Admissions Decision to Admit Reason: Admit from ER (Trauma) Decision to Admit/Date: Aug 01, 2017 Time/Decision to Admit Time: 12:03 Departure-Patient Inst. Referrals: RIVKA PAGE DO (PCP/Family) Primary Care Physician Patient Instructions: Contusion (DC), Urinary Tract Infections in Adults Add. Discharge Instructions: All discharge instructions reviewed with patient and/or family. Voiced understanding. Copy Copies To 1: RIVKA PAGE JOSHUA T MD Aug 01, 2017 11:51
[2017-08-01] MEDS ORDERED: ONDANSETRON 4 MG/2 ML (SDV) Z0FRAN IVP ONE (12:15)
[2017-08-01] MEDS ORDERED: ONDANSETRON 4 MG/2 ML (SDV) Z0FRAN ONE (12:15)
--- NOTE | 2017-08-01 12:35 | Diagnostic Imaging Report ---
PROCEDURE: CT head and CT cervical spine without contrast. TECHNIQUE: Multiple contiguous axial images were obtained through the brain and cervical spine without the use of intravenous contrast. Sagittal and coronal reformations through the cervical spine were then performed. INDICATION: Fall today, in the emergency room. COMPARISON: CT head from the same day. FINDINGS: CT HEAD: There is a large hematoma at the left posterior scalp which is increased in size since the prior study, now measuring 7.5 x 1.5 cm in the axial plane. There is soft tissue gas consistent with laceration, as well. No findings of a calvarium fracture is seen. The ventricles and cortical sulci are mildly prominent. No acute intracranial hemorrhage is seen. There is no CT evidence of acute territorial ischemia. There is no midline shift or mass effect. The paranasal sinuses are clear. CT CERVICAL SPINE: Alignment of the cervical spine appears normal. No acute fracture or malalignment is seen. There are mild multilevel degenerative changes in the cervical spine, with multilevel disc osteophyte complexes, and mild multilevel facet arthropathy. The prevertebral soft tissues are unremarkable. No bony fragments or hyperdense fluid collections are seen in the spinal canal. A small calcified nodule is seen in the right thyroid gland. Otherwise, the soft tissues about the neck are unremarkable. IMPRESSION: 1. Large hematoma at the left posterior scalp has increased in size since the prior study. No calvarium fracture or acute intracranial hemorrhage is seen. No CT evidence of acute territorial ischemia. 2. Degenerative changes in the cervical spine without acute osseous abnormality seen. Dictated by: Dictated on workstation # [id number]
--- NOTE | 2017-08-01 12:39 | Diagnostic Imaging Report ---
INDICATION: Fall. COMPARISON: 05/15/2017. FINDINGS: Single view of the chest demonstrates clear lungs bilaterally. The heart is normal. There is no pneumothorax. The osseous structures are normal. IMPRESSION: Negative chest. Dictated by: Dictated on workstation # [id number]
--- NOTE | 2017-08-01 12:48 | Diagnostic Imaging Report ---
INDICATION: Fall, back pain. TECHNIQUE: Axial noncontrast CT of the thoracic and lumbar spine, with sagittal and coronal reformats. COMPARISON: None FINDINGS: The vertebral body heights are preserved. There are degenerative changes throughout the thoracic and lumbar spine with flowing anterior osteophytes consistent with diffuse idiopathic skeletal hyperostosis in the thoracic spine. There is multilevel disc height loss. There is partial fusion of the anterior vertebral bodies at T10-T11. Alignment of the thoracic and lumbar spine appears normal without significant spondylolisthesis. There is no evidence of spinal canal stenosis. There is foraminal stenosis at L5-S1 bilaterally. No bony fragments or epidural fluid collections are seen in the spinal canal. There is mild irregularity of the left L1 transverse process, which appears to be from a remote fracture. No acute fracture or dislocation is seen. There is atelectasis in the dependent lungs bilaterally. A calcified granuloma is seen in the right lower lobe. A small hiatal hernia is present. There are multiple renal calculi bilaterally, without hydronephrosis. IMPRESSION: 1. Moderate multilevel degenerative changes in the thoracic and lumbar spine without acute fracture or malalignment seen. 2. Small hiatal hernia. 3. Nephrolithiasis. Dictated by: Dictated on workstation # [id number]
[2017-08-01] MEDS ORDERED: ACETAMINOPHEN 500 MG TAB (TYLENOL) PO ONE (14:15)
[2017-08-01] MEDS: MEROPENEM 500 MG/D5W 100 ML IVPB IV SCH ×4 (15:52→20:34)
--- NOTE | 2017-08-01 15:56 | Consultation ---
History of Present Illness History of Present Illness Patient Consulted On(boo/time) 08/01/17 13:30 Date Seen by Provider: Aug 01, 2017 Time Seen by Provider: 13:30 History of Present Illness Consult requested by Dr. Soto for fall patient is a 66 year old female who fell just prior to arrival to ER. She was using a laundry basket and fell backwards and struck head. She then drove to the emergency department for evaluation. Patient with chronic neurological issues and she's supposed to walk with walker she states. Her lower extremities keep getting weaker she states. Patient with some voiding issues like she can't empty bladder completely. She had a ct scan head and neck which had no acute issues except scalp hematoma. Patient was being discharged when she fell backwards and hit head a second time and had repeat imaging with larger posterior hematoma of scalp, no other acute abnormality. In c-collar. Allergies and Home Medications Allergies Coded Allergies: Nitrofurantoin Macrocrystal (Unverified Allergy, Unknown, RASH, 11/23/14) Penicillins (Unverified Allergy, Unknown, RASH, 11/23/14) egg (Verified Allergy, Unknown, 05/15/17) mushroom (Verified Allergy, Unknown, RASH, 05/15/17) soy (Verified Allergy, Unknown, RASH, 05/15/17) Home Medications Carbidopa/Levodopa 1 Each Tablet, 1 TAB PO TID, (Reported) Ciprofloxacin HCl 500 Mg Tablet, 500 MG PO twice a day, #6 Prescribed by: ROSELINE KHAN on 05/19/17 1303 Ciprofloxacin HCl 500 Mg Tablet, 500 MG PO BID, #20 Prescribed by: SOFY AVINA on 05/31/17 1127 Fluoxetine HCl 40 Mg Capsule, 40 MG PO BID, (Reported) Metformin HCl 500 Mg Tablet, 500 MG PO BID, (Reported) Omeprazole 40 Mg Capsule.dr, 40 MG PO DAILY, (Reported) Oxybutynin Chloride 10 Mg Tab.er.24, 10 MG PO HS, (Reported) Ropinirole HCl 3 Mg Tablet, 3 MG PO HS, (Reported) Topiramate 100 Mg Tablet, 100 MG PO BID, (Reported) Past Sctphrw-Lfhxdo-Dwrmbs Hx Patient Social History Alcohol Use: Denies Use Recreational Drug Use: No Smoking Status: Never a Smoker 2nd Hand Smoke Exposure: No Recent Foreign Travel: No Contact w/Someone Who Travel: No Recent Infectious Disease Expo: No Recent Hopitalizations: No Physical Abuse Screen: No Sexual Abuse: No Immunizations Up To Date Tetanus Booster (TDap): Unknown PED Vaccines UTD: No Seasonal Allergies Seasonal Allergies: Yes Surgeries History of Surgeries: Yes Surgeries: Bladder Surgery, Hysterectomy, Tonsillectomy Respiratory History of Respiratory Disorde: No Cardiovascular History of Cardiac Disorders: No Neurological History of Neurological Disord: Yes (l5-s1 radiculopathy, MUSCLE WASTING IN LEGS) Neurological Disorders: Parkinson's Disease Reproductive System Hx Reproductive Disorders: No Genitourinary History of Genitourinary Disor: Yes Genitourinary Disorders: Kidney Stones Gastrointestinal History of Gastrointestinal Di: Yes Gastrointestinal Disorders: Gastroesophageal Reflux Musculoskeletal History of Musculoskeletal Dis: Yes Musculoskeletal Disorders: Arthritis Endocrine History of Endocrine Disorders: Yes Endocrine Disorders: Diabetes, Non-Insulin dep HEENT History of HEENT Disorders: No Cancer History of Cancer: No Psychosocial History of Psychiatric Problem: Yes Behavioral Health Disorders: Anxiety, Depression Integumentary History of Skin or Integumenta: No Blood Transfusions History of Blood Disorders: No Adverse Reaction to a Blood Tr: No Family Medical History Significant Family History: No Pertinent Family Hx Family Medial History: Patient reports no known family medical history. Review of Systems-General Constitutional: see HPI, weakness EENTM: no symptoms reported Respiratory: no symptoms reported Cardiovascular: no symptoms reported Gastrointestinal: no symptoms reported Genitourinary: see HPI Musculoskeletal: see HPI Skin: see HPI Psychiatric/Neurological: No Symptoms Reported Physical Exam-General Problems Physical Exam Vital Signs Vital Sign - Last 12Hours 08/01/17 08:37 Temp 98.0 Pulse 100 Resp 18 B/P (MAP) 143/74 (97) Pulse Ox 100 Capillary Refill : Less Than 3 Seconds General Appearance: no apparent distress HEENT: normal ENT inspection, other (posterior scalp hematoma, no laceration slight abrasion, GCS 15) Neck: supple (full range of motion, no tenderness) Respiratory: normal breath sounds, no respiratory distress, no accessory muscle use Cardiovascular: regular rate, rhythm Gastrointestinal: non tender, soft Rectal: deferred Back: normal inspection, other (slight tenderness lumbar region) Neurologic/Psychiatric: alert, normal mood/affect, oriented x 3, other (right lower extremity slightly weaker than left) Skin: warm/dry (scalp hematoma) Data Review Labs Laboratory Tests 08/01/17 09:15: Urine Color YELLOW, Urine Clarity SLIGHTLY CLOUDY, Urine pH 6.5, Urine Specific [place] 1.010L, Urine Protein 1+H, Urine Glucose (UA) NEGATIVE, Urine Ketones NEGATIVE, Urine Nitrite POSITIVEH, Urine Bilirubin NEGATIVE, Urine Urobilinogen NORMAL, Urine Leukocyte Esterase 3+H, Urine RBC (Auto) 2+H, Urine RBC NONE, Urine WBC >100H, Urine Crystals NONE, Urine Bacteria MODERATEH, Urine Casts NONE , Urine Mucus , Urine Culture Indicated YES 08/01/17 09:38: White Blood Count 11.0, Red Blood Count 4.47, Hemoglobin 12.4, Hematocrit 37, Mean Corpuscular Volume 83, Mean Corpuscular Hemoglobin 28, Mean Corpuscular Hemoglobin Concent 34, Red Cell Distribution Width 14.8H, Platelet Count 388, Mean Platelet Volume 9.2, Neutrophils (%) (Auto) 79H, Lymphocytes (%) (Auto) 14 , Monocytes (%) (Auto) 7, Eosinophils (%) (Auto) 0, Basophils (%) (Auto) 0, Neutrophils # (Auto) 8.7H, Lymphocytes # (Auto) 1.5, Monocytes # (Auto) 0.7, Eosinophils # (Auto) 0.0, Basophils # (Auto) 0.0, Sodium Level 137, Potassium Level 3.7, Chloride Level 106, Carbon Dioxide Level 19L, Anion Gap 12, Blood Urea Nitrogen 10, Creatinine 1.02, Estimat Glomerular Filtration Rate 54, BUN/ Creatinine Ratio 10, Glucose Level 134H, Calcium Level 9.4, Total Bilirubin 0.4 , Aspartate Amino Transf (AST/SGOT) 28, Alanine Aminotransferase (ALT/SGPT) < 6 , Alkaline Phosphatase 86, Total Protein 8.0, Albumin 4.1 Assessment/Plan Assessment/Plan Assessment/Plan multiple falls from standing scalp hematoma UTI lower extremity weakness patient being admitted for UTI and multiple falls PT abx iv hydration Clinical Quality Measures DVT/VTE Risk/Contraindication: Risk Factor Score Per Nursin RFS Level Per Nursing on Admit: 3=High FLORES GAN DO Aug 01, 2017 15:56
[2017-08-01 16:00] VITALS: BP 177/77
[2017-08-01] MEDS: ACETAMINOPHEN 500 MG TAB (TYLENOL) PO PRN (18:44)
[2017-08-01 20:00] VITALS: BP 135/68
[2017-08-01] MEDS ORDERED: NON-FORMULARY MEDICATION 1 EA EA (Ropinirole HCl 3 MG) PO SCH (21:00)
[2017-08-01] MEDS ORDERED: NON-FORMULARY MEDICATION 1 EA EA (Fluoxetine HCl (Prozac) 40 MG) PO SCH (21:00)
[2017-08-01] MEDS ORDERED: FLUoxetine HCL 10 MG (PROzac) CAPSULE/TABLET ONE (22:07)
[2017-08-01] MEDS ORDERED: rOPINIRole 1 MG (REQUIP) TABLET ONE (22:11)
[2017-08-01] MEDS: POLYETHYLENE GLYCOL 17 GM (MIRALAX) PACK PO SCH (22:14)
[2017-08-01] MEDS: metFORMIN 500 MG (GLUCOPHAGE) TAB PO SCH (22:15)
[2017-08-01] MEDS: rOPINIRole 1 MG (REQUIP) TABLET PO SCH (22:16)
[2017-08-01] MEDS ORDERED: FLUoxetine HCL 20 MG (PROzac) CAP ONE (22:19)
[2017-08-01] MEDS: FLUoxetine HCL 20 MG (PROzac) CAP PO SCH (22:23)
[2017-08-02] VITALS: BP 128/59
[2017-08-02] MEDS: MEROPENEM 500 MG/D5W 100 ML IVPB IV SCH ×8 (02:45→20:33)
[2017-08-02 04:00] VITALS: BP 137/88
[2017-08-02 06:13] LABS: BASOPHILS % (AUTO) 0 % (0-10); EOSINOPHILS # (AUTO) 0.3 10^3/uL (0.0-0.3); EOSINOPHILS % (AUTO) 4 % (0-10); HEMATOCRIT 34 % (35-52); HEMOGLOBIN 11.1 G/DL (11.5-16.0); LYMPHOCYTES # (AUTO) 2.6 X 10^3 (1.0-4.0); LYMPHOCYTES % (AUTO) 30 % (12-44); MEAN CORPUSCULAR HEMOGLOBIN 28 PG (25-34); MEAN CORPUSCULAR HGB CONC 33 G/DL (32-36); MEAN CORPUSCULAR VOLUME 84 FL (80-99); MEAN PLATELET VOLUME 9.9 FL (7.4-10.4); MONOCYTES # (AUTO) 0.9 X 10^3 (0.0-1.0); MONOCYTES % (AUTO) 10 % (0-12); NEUTROPHILS # (AUTO) 4.7 X 10^3 (1.8-7.8); NEUTROPHILS % (AUTO) 56 % (42-75); PLATELET COUNT 367 10^3/uL (130-400); RED BLOOD COUNT 4.02 10^6/uL (4.35-5.85); RED CELL DISTRIBUTION WIDTH 14.7 % (10.0-14.5); WHITE BLOOD COUNT 8.5 10^3/uL (4.3-11.0)
[2017-08-02 06:33] LABS: BUN/CREATININE RATIO 8; CALCIUM 9.1 MG/DL (8.5-10.1); CARBON DIOXIDE 17 MMOL/L (21-32); CHLORIDE 112 MMOL/L (98-107); CREATININE SERUM 0.84 MG/DL (0.60-1.30); GFR ESTIMATED > 60; GLUCOSE 98 MG/DL (70-105); POTASSIUM 3.8 MMOL/L (3.6-5.0); SODIUM 139 MMOL/L (135-145)
[2017-08-02 08:05] VITALS: BP 143/71
[2017-08-02] MEDS: metFORMIN 500 MG (GLUCOPHAGE) TAB PO SCH ×2 (08:22→17:14)
[2017-08-02 11:59] VITALS: BP 132/82
--- NOTE | 2017-08-02 12:16 | History & Physical-Hospitalist ---
HPI History of Present Illness: HPI/Chief Complaint Mrs. Gill is a frail 66-year-old white female who's had multiple falls over the last month. Apparently she was doing laundry and did not use her walker but instead chose to carry clothing. She fell backwards hitting the back of her head without loss of consciousness. She felt extremely weak however and was brought to the emergency room. There after an unremarkable workup they were going to consider discharge but she tried to get up on her own from the exam table when no one was in the room she fell again striking her head without loss of consciousness but with reported significant bleeding. A definitive laceration was not noted and CT scanning revealed no intracranial pathology. She has had progressive muscular wasting a symmetrical process involving just her lower extremities apparently more proximal and distal. She's undergoing workup which included a muscle biopsy and her understanding was that appeared to be more of a neuropathy than myopathy. primary care provider is Dr. Swann and her neurologist is . On top of this she has a diagnosis of Parkinson's disease and she has a past history of Pseudomonas urinary tract infection. In the past was likely sensitive to quinolone therapy issued been on several rounds of Cipro with resolution. She has noted increased difficulty with urination and UA in the emergency room revealed pyuria and bacteriuria growing Pseudomonas with sensitivity pending at the time of this dictation. She does not typically have dysuria with past bladder infections. She denies chills or fever but has been increasingly fatigued in addition to her lower extremity weakness. Date Seen 08/02/17 Time Seen by Provider: 08:00 Attending Physician Elio Moya MD PCP Zeb Swann DO Referring Physician Date of Admission Aug 01, 2017 at 14:04 Home Medications & Allergies Home Medications Reviewed patient Home Medication Reconciliation Form Allergies Allergies Coded Allergies Nitrofurantoin Macrocrystal (Unverified Allergy, Unknown, RASH, 11/23/14) Penicillins (Unverified Allergy, Unknown, RASH, 11/23/14) egg (Verified Allergy, Unknown, 05/15/17) mushroom (Verified Allergy, Unknown, RASH, 05/15/17) soy (Verified Allergy, Unknown, RASH, 05/15/17) Past Erhelea-Orzqkr-Oudyhl Hx Patient Social History Alcohol Use: Denies Use Recreational Drug Use: No Smoking Status: Never a Smoker 2nd Hand Smoke Exposure: No Physical Abuse Screen: No Sexual Abuse: No Recent Foreign Travel: No Contact w/other who traveled: No Recent Hopitalizations: No Recent Infectious Disease Expo: No Immunizations Up To Date Tetanus Booster (TDap): Unknown Pediatric: No Seasonal Allergies Seasonal Allergies: Yes Surgeries Yes Bladder Surgery, Hysterectomy, Tonsillectomy Respiratory No Cardiovascular No Neurological Yes (l5-s1 radiculopathy, MUSCLE WASTING IN LEGS) Parkinson's Disease Reproductive System Hx Reproductive Disorders: No Genitourinary Yes Kidney Stones Gastrointestinal Yes Gastroesophageal Reflux Musculoskeletal Yes Arthritis Endocrine History of Endocrine Disorders: Yes Endocrine Disorders: Diabetes, Non-Insulin dep HEENT History of HEENT Disorders: No Cancer No Psychosocial History of Psychiatric Problem: Yes Behavioral Health Disorders: Anxiety, Depression Integumentary History of Skin or Integumenta: No Blood Transfusions History of Blood Disorders: No Adverse Reaction to a Blood Tr: No Family Medical History Significant Family History: No Pertinent Family Hx Family Hx: Patient reports no known family medical history. Review of Systems Constitutional: weakness, weight loss Respiratory: no symptoms reported, see HPI, No cough, No dyspnea on exertion, No hemoptysis, No orthopnea, No phlegm, No short of breath, No stridor, No wheezing Genitourinary: see HPI, No decreased output, No discharge, No dysuria, No frequency, No hematuria, hesitancy, No incontinence, No nocturia, No pain, No other Physical Exam Physical Exam Vital Signs Vital Sign - Last 12Hours 08/01/17 08/01/17 08:37 16:00 Temp 98.0 Pulse 100 Resp 18 B/P (MAP) 143/74 (97) Pulse Ox 100 O2 Delivery Room Air Capillary Refill : Less Than 3 Seconds General Appearance: No Apparent Distress, Chronically ill Neck: Full Range of Motion, Normal Inspection, Non Tender, Supple, Carotid Bruit Respiratory: Chest Non Tender, Lungs Clear, Normal Breath Sounds, No Accessory Muscle Use, No Respiratory Distress Cardiovascular: Regular Rate, Rhythm, No Edema, No Gallop, No JVD, No Murmur, Normal Peripheral Pulses Gastrointestinal: Normal Bowel Sounds, No Organomegaly, No Pulsatile Mass, Non Tender, Soft Neurologic/Psychiatric: Alert, Oriented x3, Normal Mood/Affect, rag sorter II-XII Norm as Tested, Other (bilateral symmetrical muscle wasting of the lower extremities there also appears to be loss of subcutaneous fat predominantly of the lower extremities without evidence for inflammation. There is a well- healed right thigh incision from previous muscle biopsy. Sensation is intact. There is increase in muscle rigidity with cogwheeling bilaterally of the upper extremities.) Results Results/Procedures Lab Laboratory Tests 08/01/17 09:38 08/02/17 05:16 Assessment/Plan Admission Diagnosis 1. Multiple falls resulting in concussion multifactorial secondary to the below etiologies. 2. Pseudomonas urinary tract infection with reported penicillin allergy patient on meropenem sensitivities pending. No evidence for sepsis at this time. 3. Muscle wasting syndrome of the lower extremities per this patient's understanding more compatible with neuropathy than myopathy awaiting further evaluation per Dr. Bender 4. Parkinson's disease will continue ropinirole and Sinemet. 5. Consult physical and occupational therapy. Clinical Quality Measures DVT/VTE Risk/Contraindication: Risk Factor Score Per Nursin RFS Level Per Nursing on Admit: 3=High ELIO MOYA MD Aug 02, 2017 12:16
[2017-08-02] MEDS: SINEMET 25/100 (CARBIDOPA/LEVODOPA) TAB PO SCH ×2 (12:59→17:09)
[2017-08-02] MEDS ORDERED: HYDR-3812 PO (15:00)
[2017-08-02] MEDS ORDERED: ARIP10TA17 PO (15:00)
--- NOTE | 2017-08-02 15:03 | Progress Note ---
Subjective Date Seen by Provider: Aug 02, 2017 Time Seen by Provider: 15:01 Subjective/Events-last exam Patient feeling better. Having some pain in her head but better than yesterday. No new complaints. Denies n/v fever sweats chills shortness of breath or chest pain. Objective Exam Vital Signs Date Time Temp Pulse Resp B/P (MAP) Pulse Ox O2 Delivery O2 Flow Rate FiO2 08/02/17 11:59 97.2 69 18 132/82 (99) 96 Room Air 08/02/17 08:05 97.0 70 16 143/71 (95) 99 Room Air 08/02/17 04:00 97.6 68 16 137/88 (104) 98 Room Air 08/02/17 00:00 97.0 75 18 128/59 (82) 97 Room Air 08/01/17 20:00 98.3 79 18 135/68 (90) 98 Room Air 08/01/17 17:02 Room Air 08/01/17 16:00 98.8 68 16 177/77 (110) 100 Room Air 08/01/17 15:10 69 18 98 I & O 08/02/17 07:00 Intake Total 1570 ml Output Total 700 ml Balance 870 ml Capillary Refill : Less Than 3 Seconds General Appearance: No Apparent Distress, Chronically ill HEENT: Other (hematoma posterior scalp) Neck: Full Range of Motion, Normal Inspection, Non Tender, Supple, Carotid Bruit Respiratory: Chest Non Tender, Lungs Clear, Normal Breath Sounds, No Accessory Muscle Use, No Respiratory Distress Cardiovascular: Regular Rate, Rhythm, No Edema, No Gallop, No JVD, No Murmur, Normal Peripheral Pulses Gastrointestinal: non tender, soft, No tenderness Extremity: Non Tender, Other (lower extremity weakness) Neurologic/Psychiatric: Alert, Oriented x3, Normal Mood/Affect, unified communications engineer II-XII Norm as Tested, Other (lower extremity weakness) Skin: Warm/Dry Results Lab Laboratory Tests 08/01/17 22:18: Glucometer 163H 08/02/17 05:16: White Blood Count 8.5, Red Blood Count 4.02L, Hemoglobin 11.1L, Hematocrit 34L, Mean Corpuscular Volume 84, Mean Corpuscular Hemoglobin 28, Mean Corpuscular Hemoglobin Concent 33, Red Cell Distribution Width 14.7H, Platelet Count 367, Mean Platelet Volume 9.9, Neutrophils (%) (Auto) 56, Lymphocytes (%) (Auto) 30, Monocytes (%) (Auto) 10, Eosinophils (%) (Auto) 4, Basophils (%) (Auto) 0, Neutrophils # (Auto) 4.7, Lymphocytes # (Auto) 2.6, Monocytes # (Auto) 0.9, Eosinophils # (Auto) 0.3, Basophils # (Auto) 0.0, Sodium Level 139, Potassium Level 3.8, Chloride Level 112H, Carbon Dioxide Level 17L, Anion Gap 10, Blood Urea Nitrogen 7, Creatinine 0.84, Estimat Glomerular Filtration Rate > 60, BUN/ Creatinine Ratio 8, Glucose Level 98, Calcium Level 9.1 08/02/17 05:45: Glucometer 92 08/02/17 10:08: Glucometer 175H 08/02/17 14:27: Glucometer 193H Microbiology 08/01/17 Urine Culture - Preliminary, Resulted Pseudomonas Aeruginosa Assessment/Plan Assessment/Plan Assessment/Plan multiple falls from standing scalp hematoma UTI lower extremity weakness continue medical management pt ordered no traumatic issues will sign off, call if needed. Clinical Quality Measures DVT/VTE Risk/Contraindication: Risk Factor Score Per Nursin RFS Level Per Nursing on Admit: 3=High FLORES GAN DO Aug 02, 2017 15:03
[2017-08-02 16:00] VITALS: BP 123/74
[2017-08-02 19:55] VITALS: BP 147/76
[2017-08-02] MEDS: POLYETHYLENE GLYCOL 17 GM (MIRALAX) PACK PO SCH (20:33)
[2017-08-02] MEDS: FLUoxetine HCL 20 MG (PROzac) CAP PO SCH (20:33)
[2017-08-02] MEDS: ONDANSETRON 4 MG/2 ML (SDV) Z0FRAN IVP PRN (21:52)
[2017-08-03] VITALS: BP 129/71
[2017-08-03] MEDS: MEROPENEM 500 MG/D5W 100 ML IVPB IV SCH ×4 (03:25→09:24)
[2017-08-03 04:00] VITALS: BP 151/76
[2017-08-03] MEDS: SINEMET 25/100 (CARBIDOPA/LEVODOPA) TAB PO SCH ×3 (06:09→17:12)
[2017-08-03 08:00] VITALS: BP 151/67
[2017-08-03] MEDS: FLUoxetine HCL 20 MG (PROzac) CAP PO SCH ×2 (09:24→20:37)
[2017-08-03] MEDS: metFORMIN 500 MG (GLUCOPHAGE) TAB PO SCH ×2 (09:24→20:38)
[2017-08-03] MEDS: ACETAMINOPHEN 500 MG TAB (TYLENOL) PO PRN ×2 (10:17→23:01)
--- NOTE | 2017-08-03 11:51 | Physical Therapy Evaluation ---
PT Evaluation-General Medical Diagnosis Admission Date Aug 01, 2017 at 14:04 Medical Diagnosis: multiple falls/UTI Onset Date: Aug 01, 2017 Therapy Diagnosis Therapy Diagnosis: generalized weakness/debility Height/Weight Height (Feet): 5 Height (Inches): 3.00 Weight (Pounds): 131 Weight (Ounces): 0.0 Precautions Precautions/Isolations: Fall Prevention, Standard Precautions, Pressure Ulcer Weight Bear Status Right Lower Extremity: Right Full Weight Bearing Left Lower Extremity: Left Full Weight Bearing Referral Physician: Griffin Reason for Referral: Evaluation/Treatment Medical History Pertinent Medical History: Arthritis, DM, GERD, Neuropathy, Parkinson's Current History walking to laundry mat and fell hitting her head resulting in hematoma / contusion on scalp Reviewed History: Yes Social History Home: Apartment Current Living Status: Alone Entry Into Home: Level Entry Prior/Core FIM Prior Level of Function Functional [place] Measure 0=Not Assessed/NA 4=Minimal Assistance 1=Total Assistance 5=Supervision or Setup 2=Maximal Assistance 6=Modified [place] 3=Moderate Assistance 7=Complete [place] Bed Mobility: 6 Transfers (B,C,W/C) (FIM): 6 Gait: 6 Patient has had a need for FWW at all time, however, patient reports her [facility] therapist told her she did not. PT Evaluation-Current Subjective Patient agrees to PT. She c/o right flank pain. Pain Numeric Pain Scale: 5-Moderate Pain Location: Right Location Body Site: Side Pain Description: Ache Objective Patient Orientation: Normal For Age Problem Solving: Fair ROM/Strength ROM Lower Extremities bilateral LE WNL Strength Lower Extremities right knee flexion/extension 4/5; hip flexion 4/5; DF/PF 4/5; abd/add 4/5 left knee flexion/extension 4/5; hip flexion 4/5; DF/PF 4/5; abd/add 4/5 Integumentary/Posture Integumentary multiple abrasions bilateral knees, head/ noted muscle wasting bilateral LE Bowel Incontinence: No Bladder Incontinence: No Posture WFL Neuromuscular (Tone, Coordination, Reflexes) slightly diminished coordination Sensory Vision: Functional Hearing: Functional Sensation Right Lower Extremit: Impaired Sensation Left Lower Extremity: Impaired Transfers Functional [place] Measure 0=Not Assessed/NA 4=Minimal Assistance 1=Total Assistance 5=Supervision or Setup 2=Maximal Assistance 6=Modified [place] 3=Moderate Assistance 7=Complete [place] Transfers (B, C, W/C) (FIM): 4 Scootin Rollin Supine to/from Sit: 4 Sit to/from Stand: 4 Gait Mode of Locomotion: Walk Anticipated Mode of Locomotion: Walk Gait (FIM): 4 Distance (FIM): 3=150 ft Distance: 150' x 2 Gait Level of Assist: 4 Gait Persons Needed: 1 Gait Assistive Device: FWW Comments/Gait Description shuffle gait sequence with minimal foot clearance Stairs Stairs (FIM): 1 #of Steps: 3 Level of Assist: 5 Balance Sitting Static: Normal Sitting Dynamic: Normal Standing Static: Normal Standing Dynamic: Normal Assessment/Needs 66 y.o. female, will benefit from short term skilled PT to address functional mobility to ensure safe return to home at maximum LOF. From a PT standpoint, patient would benefit from home health PT to address home safety. Rehab Potential: Fair PT Fci Goals Rn Icu Goals PT Rn Icu Goals Time Frame: Aug 14, 2017 Transfers (B,C,W/C) (FIM): 6 Gait (FIM): 6 Gait distance (FIM): 3=150 ft Distance: 200' Gait Level of Assist: 6 Gait Assistive Device: FWW PT Plan Problem List Problem List: Activity Tolerance, Functional Strength, Balance, Gait Treatment/Plan Treatment Plan: Continue Plan of Care Treatment Plan: Bed Mobility, Education, Functional Activity [place], Functional Strength, Gait, Safety, Therapeutic Exercise, Transfers Treatment Duration: Aug 14, 2017 Frequency: 6 times per week Estimated Hrs Per Day: .25 hour per day Patient and/or Family Agrees t: Yes Safety Risks/Education Patient Education: Steps, Safety Issues Teaching Recipient: Patient Teaching Methods: Demonstration, Discussion Response to Teaching: Verbalize Understanding, Return Demonstration Discharge Recommendations Therapy D/C Recommendations: Physical Therapy Home Care Time/GCodes Time In: 1035 Time Out: 1057 Total Billed Treatment Time: 22 Total Billed Treatment 1 visit EVModC 22 min G Codes Necessary: ZECHARIAH Balderrama PT Aug 03, 2017 11:51
[2017-08-03 12:00] VITALS: BP 161/77
--- NOTE | 2017-08-03 12:46 | Progress Note-Hospitalist ---
Standard Progress Note Progress Notes/Assess & Plan Date Seen 08/03/17 Time Seen by Provider: 12:43 Diagnosis 1. Multiple falls resulting in concussion multifactorial secondary to the below etiologies. 2. Pseudomonas urinary tract infection with reported penicillin allergy patient on meropenem sensitivities pending. No evidence for sepsis at this time. 3. Muscle wasting syndrome of the lower extremities per this patient's understanding more compatible with neuropathy than myopathy awaiting further evaluation per Dr. Bender 4. Parkinson's disease will continue ropinirole and Sinemet. 5. Consult physical and occupational therapy. Assess & Plan/Chief Complaint The patient was admitted after she presented to the emergency room on Thursday having fallen several times at home and suffering a laceration. She is known from a previous admission to have an apparent neuromuscular disorder with severe atrophy of the legs. Her falls occurred even in spite of using a walker. Her urine cultures are now back and are growing Pseudomonas sensitive only to IV medications. Physical exam: The patient is alert and oriented. Lungs are clear to auscultation. CV is regular without murmur. Extremities show very minimal musculature to her legs. Impression: 1.Pseudomonas urinary tract infection. 2.multiple falls at home. 3.neuromuscular disorder most apparent in the lower extremities. Plan: Continue IV antibiotics. Social service consult. Labs ROSELINE KHAN MD Aug 03, 2017 12:46
[2017-08-03] MEDS: ONDANSETRON 4 MG/2 ML (SDV) Z0FRAN IVP PRN (14:59)
[2017-08-03] MEDS ORDERED: GENTAMICIN IV SCH (15:00)
[2017-08-03] MEDS ORDERED: NS IV SCH (15:00)
[2017-08-03 15:31] VITALS: BP 138/72
[2017-08-03] MEDS ORDERED: BISACODYL 10 MG SUPP (DULCOLAX) PR NR (17:15)
[2017-08-03 19:15] VITALS: BP 148/75
[2017-08-03] MEDS: POLYETHYLENE GLYCOL 17 GM (MIRALAX) PACK PO SCH (20:37)
[2017-08-03] MEDS: rOPINIRole 1 MG (REQUIP) TABLET PO SCH (20:38)
[2017-08-03] MEDS ORDERED: GENTAMICIN LEVEL XX NR (23:00)
[2017-08-04 00:01] VITALS: BP 152/76
[2017-08-04 03:42] VITALS: BP 140/85
[2017-08-04] MEDS: SINEMET 25/100 (CARBIDOPA/LEVODOPA) TAB PO SCH ×3 (06:22→17:00)
[2017-08-04 08:00] VITALS: BP 159/71
[2017-08-04] MEDS: FLUoxetine HCL 20 MG (PROzac) CAP PO SCH ×2 (10:38→20:05)
[2017-08-04] MEDS: metFORMIN 500 MG (GLUCOPHAGE) TAB PO SCH ×2 (10:38→20:07)
[2017-08-04 12:00] VITALS: BP 123/72
[2017-08-04] MEDS: ONDANSETRON 4 MG/2 ML (SDV) Z0FRAN IVP PRN ×3 (13:54→22:13)
--- NOTE | 2017-08-04 14:25 | Physical Therapy Daily Note ---
PT Daily Note-Current Subjective Patient agrees to PT. Patient c/o CASTELLANOS. Pain Numeric Pain Scale: 5-Moderate Pain Location: Posterior Location Body Site: Occipital Pain Description: Pressure, Sharp Appearance Noted nystagmus bilaterally following PT finger side to side Mental Status Patient Orientation: Normal For Age Transfers Functional [facility] Measure 0=Not Assessed/NA 4=Minimal Assistance 1=Total Assistance 5=Supervision or Setup 2=Maximal Assistance 6=Modified [facility] 3=Moderate Assistance 7=Complete IndependenceIRFPAI Quality Coding Scale 6 Independent with activity with or without an assistive device 5 Patient requires set up or clean up by helper. Patient completes activity by themselves 4 Supervision or touching assist (CGA). Chuckey provide cues , steadying assist 3 The helper provides less than half the effort to complete the activity 2 The helper provides more than half the effort to complete the activity 1 Dependent. The helper does all the effort to complete an activity 7 Patient refused to complete or attempt activity 9 The patient did not perform the activity before the current illness or injury 88 Not attempted due to Medical conditions or safety concerns Transfers (B, C, W/C) (FIM): 4 Scootin Rollin Supine to/from Sit: 5 Sit to/from Stand: 4 CGA for safety Weight Bearing Right Lower Extremity: Right Full Weight Bearing Left Lower Extremity: Left Full Weight Bearing Gait Training Gait (FIM): 2 Distance (FIM): 1=466-25 ft Distance: 125' Gait Level of Assist: 4 Gait Assistive Device: FWW safe and functional gait sequence; slow loco Assessment During treatment, patient had an increase c/o dizziness and nausea. Patient made it back to room and vomited a considerable amount. RN had issued nausea meds prior. PT notified Dr. Craft and B coordinator Zoe on patient status during treatment and this PT's concern. SENIOR HEALTH CONSULTANT in for blood sugar test with result of 168. RN is also aware. Patient is in bed supine with needs met. PT Certified Coatings Inspector Goals Senior Living Goals PT Senior Living Goals Time Frame: Aug 14, 2017 Transfers (B,C,W/C) (FIM): 6 Gait (FIM): 6 Gait distance (FIM): 3=150 ft Distance: 200' Gait Level of Assist: 6 Gait Assistive Device: FWW PT Plan Treatment/Plan Treatment Plan: Continue Plan of Care Treatment Plan: Bed Mobility, Education, Functional Activity Favian, Functional Strength, Gait, Safety, Therapeutic Exercise, Transfers Treatment Duration: Aug 14, 2017 Frequency: 6 times per week Estimated Hrs Per Day: .25 hour per day Patient and/or Family Agrees t: Yes Time/GCodes Time In: 1355 Time Out: 1410 Total Billed Treatment Time: 15 Total Billed Treatment 1 visit GT 15 min ZECHARIAH FRANKLIN PT Aug 04, 2017 14:25
--- NOTE | 2017-08-04 14:43 | Progress Note-Hospitalist ---
Standard Progress Note Progress Notes/Assess & Plan Date Seen 08/04/17 Time Seen by Provider: 14:41 Diagnosis 1. Multiple falls resulting in concussion multifactorial secondary to the below etiologies. 2. Pseudomonas urinary tract infection with reported penicillin allergy patient on meropenem sensitivities pending. No evidence for sepsis at this time. 3. Muscle wasting syndrome of the lower extremities per this patient's understanding more compatible with neuropathy than myopathy awaiting further evaluation per Dr. Bender 4. Parkinson's disease will continue ropinirole and Sinemet. 5. Consult physical and occupational therapy. Assess & Plan/Chief Complaint The patient has developed a rather sharp and sudden headache this afternoon. She is not normally afflicted with headaches. She had a fall on Thursday at the time of her admission in which she struck her head and had a scalp hematoma. A CT done at that time showed no evidence of intracranial injury. Physical exam: She is alert and answers questions promptly. Lungs are clear to auscultation. CV is regular. Impression: Acute headache with history of fall 3 days ago. 2.Pseudomonas urinary tract infection. 3.severe muscle atrophy suggesting neuromuscular disorder. Plan: Repeat CT scan of head. ROSELINE KHAN MD Aug 04, 2017 14:43
--- NOTE | 2017-08-04 15:30 | Diagnostic Imaging Report ---
PROCEDURE: CT head without contrast. TECHNIQUE: Multiple contiguous axial images were obtained through the brain without the use of intravenous contrast. INDICATION: Headaches with nausea and dizziness. Comparison is made with prior head CT from 08/01/2017. FINDINGS: Left posterior parietal scalp hematoma has decreased in size. The ventricles and sulci are stable in appearance. No sulcal effacement, midline shift, or hemorrhage is detected. The cisterns are patent. Visualized paranasal sinuses are clear. IMPRESSION: Decrease in size of the left posterior parietal scalp hematoma. No acute intracranial process is detected. Dictated by: Dictated on workstation # [id number]
[2017-08-04 16:33] VITALS: BP 165/75
[2017-08-04 20:15] VITALS: BP 152/68
[2017-08-04] MEDS ORDERED: GENTAMICIN IV SCH (21:00)
[2017-08-04] MEDS: POLYETHYLENE GLYCOL 17 GM (MIRALAX) PACK PO SCH (21:00)
[2017-08-04] MEDS: rOPINIRole 1 MG (REQUIP) TABLET PO SCH (21:00)
[2017-08-04] MEDS ORDERED: NS IV SCH (21:00)
[2017-08-05] VITALS: BP 188/86
[2017-08-05] MEDS: ONDANSETRON 4 MG/2 ML (SDV) Z0FRAN IVP PRN ×3 (02:15→10:18)
[2017-08-05 04:00] VITALS: BP 152/79
[2017-08-05] MEDS: SINEMET 25/100 (CARBIDOPA/LEVODOPA) TAB PO SCH ×2 (06:04→10:53)
[2017-08-05 08:00] VITALS: BP 153/74
[2017-08-05] MEDS: metFORMIN 500 MG (GLUCOPHAGE) TAB PO SCH (08:20)
[2017-08-05] MEDS: FLUoxetine HCL 20 MG (PROzac) CAP PO SCH (08:21)
--- NOTE | 2017-08-05 09:06 | Physical Therapy Progress Note ---
Therapy Progress Note Pt reports still feeling nauseous and does not feel like she can complete tx at this time. Nursing notified. FRANCHESKA MENDIOLA PTA Aug 05, 2017 09:06
--- NOTE | 2017-08-05 10:05 | Discharge Summary-Hospitalist ---
Diagnosis/Chief Complaint Date of Admission Aug 01, 2017 at 14:04 Date of Discharge Admission Diagnosis 1. Multiple falls resulting in concussion multifactorial secondary to the below etiologies. 2. Pseudomonas urinary tract infection with reported penicillin allergy patient on meropenem sensitivities pending. No evidence for sepsis at this time. 3. Muscle wasting syndrome of the lower extremities per this patient's understanding more compatible with neuropathy than myopathy awaiting further evaluation per Dr. Bender 4. Parkinson's disease will continue ropinirole and Sinemet. 5. Consult physical and occupational therapy. Discharge Diagnosis Impression: Acute headache with history of fall 6 days ago. 2.Pseudomonas urinary tract infection. 3.severe muscle atrophy suggesting neuromuscular disorder. 4. Acute CASTELLANOS yesterday following fall with SQ hematoma but CT scan normal Discharge Summary Discharge Physical Examination Allergies: Coded Allergies: Nitrofurantoin Macrocrystal (Unverified Allergy, Unknown, RASH, 11/23/14) Penicillins (Unverified Allergy, Unknown, RASH, 11/23/14) egg (Verified Allergy, Unknown, 05/15/17) mushroom (Verified Allergy, Unknown, RASH, 05/15/17) soy (Verified Allergy, Unknown, RASH, 05/15/17) Vitals & I&Os Vital Signs Date Time Temp Pulse Resp B/P (MAP) Pulse Ox O2 Delivery O2 Flow Rate FiO2 08/05/17 08:00 97.6 87 18 153/74 (100) 95 Room Air Hospital Course SW Review: Swingbed was discussed with the pt and she is okay with this. 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 Pt's nausea medicine is being sorted out; pt has not received her home meds Pt Interview: Pt states she is ready for her nausea medicine. Pt denies having BMs and states MiraLax makes her vomit. Pt is okay with trying other BM aids Pt confirms PCP as Dr. Swann Pt states she is working with PT, but did not today due to nausea. No fever, chronically ill, frail, weak Regular rate and rhythm, clear to auscultation bilaterally Bowel sounds noted Impression: Acute headache with history of fall 3 days ago. 2.Pseudomonas urinary tract infection. 3.severe muscle atrophy suggesting neuromuscular disorder. 4. Constipation Plan: Swingbed Nausea meds BM meds PT Hospital course: Patient had an uneventful hospital course but Pseudomonas was revealed on urine culture she was maintain on IV antibiotics that will need to be continued for the protocol time. Constipation was managed with initiation of medication and patient was placed on swing bed for rehabilitation but will definitely need to go to [facility] due to the multiple falls and unable to manage her care at home. Labs (last 24 hrs) Laboratory Tests 08/04/17 14:14: Glucometer 168H 08/04/17 20:04: Glucometer 145H 08/04/17 21:49: Glucometer 147H 08/05/17 04:46: Glucometer 169H 08/05/17 09:35: Glucometer 146H Microbiology 08/01/17 Urine Culture - Final, Complete Pseudomonas Aeruginosa Pending Labs Laboratory Tests 08/05/17 04:46: Glucometer 169 08/05/17 09:35: Glucometer 146 Discharge Home Medications: Active Scripts Active Reported Hydrocodone-Acetamin 5-325 mg (Hydrocodone/Acetaminophen) 1 Each Tablet 1 Tab PO Q6H PRN Aripiprazole 10 Mg Tablet 10 Mg PO DAILY Ropinirole HCl 3 Mg Tablet 3 Mg PO HS Topiramate 100 Mg Tablet 100 Mg PO BID Metformin HCl 500 Mg Tablet 500 Mg PO BID Omeprazole 40 Mg Capsule.dr 40 Mg PO DAILY Oxybutynin Chloride ER (Oxybutynin Chloride) 10 Mg Tab.er.24 10 Mg PO HS Carbidopa-Levodopa 25-100 Tab (Carbidopa/Levodopa) 1 Each Tablet 1 Tab PO TID Prozac (Fluoxetine HCl) 40 Mg Capsule 40 Mg PO BID Instructions to patient/family Please see electronic discharge instructions given to patient. Clinical Quality Measures DVT/VTE Risk/Contraindication: Risk Factor Score Per Nursin RFS Level Per Nursing on Admit: 3=High MARY NGUYEN DO Aug 05, 2017 10:05
[2017-08-05] MEDS ORDERED: SENNA W/DOCUSATE (SENOKOT S) TABLET PO SCH (11:00)
[2017-08-05] MEDS ORDERED: SCOPOLAMINE 1.5 MG (TRANSDERM-SCOP) PATCH TOP SCH (11:00)
[2017-08-05] MEDS ORDERED: BISACODYL 10 MG SUPP (DULCOLAX) PR NR (11:01)
[2017-08-05] MEDS ORDERED: FLEET ENEMA ADULT 1 EA BTL PR NR (11:02)
[2017-08-05] MEDS ORDERED: HYDROcodone/APAP 5 MG/325 MG (LORTAB) TAB PO PRN (11:15)
[2017-08-05] MEDS ORDERED: SINEMET 25/100 (CARBIDOPA/LEVODOPA) TAB PO SCH (13:00)
[2017-08-05] MEDS ORDERED: toPIRamate 100 MG (TOPAMAX) TAB PO SCH (21:00)
[2017-08-05] MEDS ORDERED: OXYBUTYNIN (DITROPAN) 5 MG TAB PO SCH (21:00)
[2017-08-06] MEDS ORDERED: PANTOPRAZOLE 40 MG (PROTONIX) TAB PO SCH (07:00)
[2017-08-06] MEDS ORDERED: ARIPIPRAZOLE 10 MG (ABILIFY) TAB PO SCH (09:00)
[2017-08-08] MEDS ORDERED: PATCH REMOVAL TP SCH (11:00)
== END 2017-08-05 12:00 | disposition swing bed (61) | DRG 89 ==
LOC: EDUNIT# 08:15 → ER 08:17 → 4TH 14:04
PROVIDERS: ADMIT Internal Medicine; ATTEND Internal Medicine
DX: S06.0X0A Concussion without loss of consciousness, initial encounter (principal); S00.03XA Contusion of scalp, initial encounter; M62.59 Muscle wasting and atrophy, not elsewhere classified, multiple sites; R29.6 Repeated falls; N39.0 Urinary tract infection, site not specified; B96.5 Pseudomonas (aeruginosa) (mallei) (pseudomallei) as the cause of diseases classified elsewhere; S80.211A Abrasion, right knee, initial encounter; S80.212A Abrasion, left knee, initial encounter; R53.1 Weakness; Z23 Encounter for immunization; G20 Parkinson's disease; M54.10 Radiculopathy, site unspecified; E11.9 Type 2 diabetes mellitus without complications; K21.9 Gastro-esophageal reflux disease without esophagitis; M19.91 Primary osteoarthritis, unspecified site; F41.9 Anxiety disorder, unspecified; F32.9 Major depressive disorder, single episode, unspecified; J30.2 Other seasonal allergic rhinitis; R51 Headache; K59.00 Constipation, unspecified; Z79.84 Long term (current) use of oral hypoglycemic drugs; Z87.442 Personal history of urinary calculi; W18.30XA Fall on same level, unspecified, initial encounter; Y92.238 Other place in hospital as the place of occurrence of the external cause; Y92.039 Unspecified place in apartment as the place of occurrence of the external cause
CPT/HCPCS: 36415; 70450; 71045; 72125; 72128; 72131; 80048; 80053; 80170; 81000; 82962; 85025; 87077; 87088; 87186; 90471; 90715; 96361; 96365; 96375

== ENCOUNTER 2017-08-04 08:42 | Inpatient (IN) | payer MEDICARE, OTHER ==
[~2017-08-04] VITALS: Ht 160 cm; Wt 59.4 kg
[~2017-08-04 08:42] MED LIST changes: +ARIP10TA17 PO; +CEPH-507 PO; +HYDR-3812 PO
[2017-08-05 12:00] VITALS: BP 162/85
[2017-08-05] MEDS ORDERED: GENTAMICIN IV SCH (12:15)
[2017-08-05] MEDS ORDERED: NS IV SCH (12:15)
[2017-08-05] MEDS ORDERED: PATCH REMOVAL TP SCH (12:15)
[2017-08-05] MEDS ORDERED: SCOPOLAMINE 1.5 MG (TRANSDERM-SCOP) PATCH TOP SCH (12:15)
--- OUTSIDE RECORDS SUMMARY | 2017-08-05 12:17 | XMS REPORT | Continuity of Care Document ---
Author Author [employer] Organization [facility] Address Unknown Phone Unavailable Care Team Providers Care Tank Tester Name Role Phone [employer] Unavailable Unavailable Problems Medications Allergies, Adverse Reactions, Alerts Immunizations Results Vital Signs Encounters Location Location Details Encounter Type Encounter Number Reason For Visit Attending Provider ADM Date DC Date Status Source O NALLELY RICHARDS 09/03/2017 Active [facility] Procedures Plan of Care Social History Assessment and Plan Family History Advance Directives Functional Status
--- OUTSIDE RECORDS SUMMARY | 2017-08-05 12:26 | XMS REPORT | Continuity of Care Document ---
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 Z01.818 ENCOUNTER FOR OTHER PREPROCEDURAL EXAMIN 02/27/2017 RIVKA PAGE DO Ot R41.82 ALTERED MENTAL STATUS, UNSPECIFIED 02/27/2017 TIN PAGE Ot E04.1 NONTOXIC SINGLE THYROID NODULE 02/27/2017 TIN PAGE Ot R59.0 LOCALIZED ENLARGED LYMPH NODES 02/27/2017 RIVKA PAGE DO Ot R59.1 GENERALIZED ENLARGED LYMPH NODES 02/27/2017 DARIEL TREVIZO MD Ot E11.9 TYPE 2 DIABETES MELLITUS WITHOUT COMPLIC 02/27/2017 DARIEL TREVIZO MD Ot F32.9 MAJOR DEPRESSIVE DISORDER, SINGLE EPISOD 02/27/2017 DARIEL TREVIZO MD, Ot F41.9 ANXIETY DISORDER, UNSPECIFIED 02/27/2017 DARIEL TREVIZO MD, Ot K21.9 GASTRO-ESOPHAGEAL REFLUX DISEASE WITHOUT 02/27/2017 DARIEL TREVIZO MD, Ot M25.552 PAIN IN LEFT HIP 02/27/2017 DARIEL TREVIZO MD Ot M70.62 TROCHANTERIC BURSITIS, LEFT HIP 02/27/2017 DARIEL TREVIZO MD, Ot W18.30XA FALL ON SAME LEVEL, UNSPECIFIED, INITIAL 02/27/2017 DARIEL TREVIZO MD, Ot Z79.4 ASSISTED (CURRENT) USE OF INSULIN 02/27/2017 DARIEL TREVIZO MD Ot Z79.84 ASSISTED (CURRENT) USE OF ORAL HYPOGLYC 02/27/2017 DARIEL TREVIZO MD, Ot Z87.442 PERSONAL HISTORY OF URINARY CALCULI 02/27/2017 DARIEL TREVIZO MD Ot Z90.710 ACQUIRED ABSENCE OF BOTH CERVIX AND UTER 03/02/2017 DARIEL TREVIZO MD Ot E11.9 TYPE 2 DIABETES MELLITUS WITHOUT COMPLIC 03/02/2017 DARIEL TREVIZO MD Ot F32.9 MAJOR DEPRESSIVE DISORDER, SINGLE EPISOD 03/02/2017 DARIEL TREVIZO MD, Ot F41.9 ANXIETY DISORDER, UNSPECIFIED 03/02/2017 DARIEL TREVIZO MD, Ot K21.9 GASTRO-ESOPHAGEAL REFLUX DISEASE WITHOUT 03/02/2017 DARIEL TREVIZO MD, Ot M16.10 UNILATERAL PRIMARY OSTEOARTHRITIS, UNSPE 03/02/2017 DARIEL TREVIZO MD, Ot M25.552 PAIN IN LEFT HIP 03/02/2017 DARIEL TREVIZO MD Ot W18.30XA FALL ON SAME LEVEL, UNSPECIFIED, INITIAL 03/02/2017 DARIEL TREVIZO MD, Ot Z79.4 ASSISTED (CURRENT) USE OF INSULIN 03/02/2017 DARIEL TREVIZO MD Ot Z79.84 ASSISTED (CURRENT) USE OF ORAL HYPOGLYC 03/02/2017 DARIEL TREVIZO MD Ot Z87.442 PERSONAL HISTORY OF URINARY CALCULI 03/02/2017 DARIEL TREVIZO MD Ot Z90.710 ACQUIRED ABSENCE OF BOTH CERVIX AND UTER 03/02/2017 DARIEL TREVIZO MD Ot E11.9 TYPE 2 DIABETES MELLITUS WITHOUT COMPLIC 03/02/2017 DARIEL TREVIZO MD Ot F32.9 MAJOR DEPRESSIVE DISORDER, SINGLE EPISOD 03/02/2017 DARIEL TREVIZO MD, Ot F41.9 ANXIETY DISORDER, UNSPECIFIED 03/02/2017 DARIEL TREVIZO MD, Ot K21.9 GASTRO-ESOPHAGEAL REFLUX DISEASE WITHOUT 03/02/2017 DARIEL TREVIZO MD Ot M25.552 PAIN IN LEFT HIP 03/02/2017 DARIEL TREVIZO MD Ot M70.62 TROCHANTERIC BURSITIS, LEFT HIP 03/02/2017 DARIEL TREVIZO MD Ot W18.30XA FALL ON SAME LEVEL, UNSPECIFIED, INITIAL 03/02/2017 DARIEL TREVIZO MD, Ot Z79.4 ASSISTED (CURRENT) USE OF INSULIN 03/02/2017 DARIEL TREVIZO MD Ot Z79.84 ASSISTED (CURRENT) USE OF ORAL HYPOGLYC 03/02/2017 DARIEL TREVIZO MD Ot Z87.442 PERSONAL HISTORY OF URINARY CALCULI 03/02/2017 DARIEL TREVIZO MD Ot Z90.710 ACQUIRED ABSENCE OF BOTH CERVIX AND UTER 03/02/2017 THADDEUS LEACH MD Ot E11.9 TYPE 2 DIABETES MELLITUS WITHOUT COMPLIC 03/02/2017 THADDEUS LEACH MD Ot F32.9 MAJOR DEPRESSIVE DISORDER, SINGLE EPISOD 03/02/2017 THADDEUS LEACH MD Ot F41.9 ANXIETY DISORDER, UNSPECIFIED 03/02/2017 THADDEUS LEACH MD Ot K21.9 GASTRO-ESOPHAGEAL REFLUX DISEASE WITHOUT 03/02/2017 THADDEUS LEACH MD Ot M25.552 PAIN IN LEFT HIP 03/02/2017 THADDEUS LEACH MD Ot M70.72 OTHER BURSITIS OF HIP, LEFT HIP 03/02/2017 THADDEUS LEACH MD Ot 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 03/02/2017 THADDEUS LEACH MD Ot Z79.84 WIND ENERGY TECHNICIAN (CURRENT) USE OF ORAL HYPOGLYC 03/02/2017 THADDEUS LEACH MD Ot Z87.442 PERSONAL HISTORY OF URINARY CALCULI 03/02/2017 THADDEUS LEACH MD Ot Z90.710 ACQUIRED ABSENCE OF BOTH CERVIX AND UTER 03/04/2017 THADDEUS LEACH MD Ot E11.9 TYPE 2 DIABETES MELLITUS WITHOUT COMPLIC 03/04/2017 THADDEUS LEACH MD Ot F32.9 MAJOR DEPRESSIVE DISORDER, SINGLE EPISOD 03/04/2017 THADDEUS LEACH MD Ot F41.9 ANXIETY DISORDER, UNSPECIFIED 03/04/2017 THADDEUS LEACH MD Ot K21.9 GASTRO-ESOPHAGEAL REFLUX DISEASE WITHOUT 03/04/2017 THADDEUS LEACH MD Ot M25.552 PAIN IN LEFT HIP 03/04/2017 THADDEUS LEACH MD Ot M70.72 OTHER BURSITIS OF HIP, LEFT HIP 03/04/2017 THADDEUS LEACH MD Ot 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 03/04/2017 THADDEUS LEACH MD Ot Z79.84 ASSISTED (CURRENT) USE OF ORAL HYPOGLYC 03/04/2017 THADDEUS LEACH MD Ot Z87.442 PERSONAL HISTORY OF URINARY CALCULI 03/04/2017 THADDEUS LEACH MD Ot Z90.710 ACQUIRED ABSENCE OF BOTH CERVIX AND UTER 03/04/2017 DARIEL TREVIZO MD, Ot E11.9 TYPE 2 DIABETES MELLITUS WITHOUT COMPLIC 03/04/2017 DARIEL TREVIZO MD, Ot F32.9 MAJOR DEPRESSIVE DISORDER, SINGLE EPISOD 03/04/2017 DARIEL TREVIZO MD, Ot F41.9 ANXIETY DISORDER, UNSPECIFIED 03/04/2017 DARIEL TREVIZO MD, Ot K21.9 GASTRO-ESOPHAGEAL REFLUX DISEASE WITHOUT 03/04/2017 DARIEL TREVIZO MD Ot M16.10 UNILATERAL PRIMARY OSTEOARTHRITIS, UNSPE 03/04/2017 DARIEL TREVIZO MD Ot M25.552 PAIN IN LEFT HIP 03/04/2017 DARIEL TREVIZO MD Ot W18.30XA FALL ON SAME LEVEL, UNSPECIFIED, INITIAL 03/04/2017 DARIEL TREVIZO MD Ot Z79.4 ASSISTED (CURRENT) USE OF INSULIN 03/04/2017 DARIEL TREVIZO MD Ot Z79.84 WIND ENERGY TECHNICIAN (CURRENT) USE OF ORAL HYPOGLYC 03/04/2017 SANTHOSH BROOKS, DARIEL Garrison Ot Z87.442 PERSONAL HISTORY OF URINARY CALCULI 03/04/2017 DARIEL TREVIZO MD Ot Z90.710 ACQUIRED ABSENCE OF BOTH CERVIX AND UTER 03/04/2017 THADDEUS LEACH MD Ot E11.9 TYPE 2 DIABETES MELLITUS WITHOUT COMPLIC 03/04/2017 THADDEUS LEACH MD Ot F32.9 MAJOR DEPRESSIVE DISORDER, SINGLE EPISOD 03/04/2017 THADDEUS LEACH MD Ot F41.9 ANXIETY DISORDER, UNSPECIFIED 03/04/2017 THADDEUS LEACH MD Ot K21.9 GASTRO-ESOPHAGEAL REFLUX DISEASE WITHOUT 03/04/2017 THADDEUS LEACH MD Ot M25.552 PAIN IN LEFT HIP 03/04/2017 THADDEUS LEACH MD Ot M70.72 OTHER BURSITIS OF HIP, LEFT HIP 03/04/2017 THADDEUS LEACH MD Ot Z79.4 ASSISTED (CURRENT) USE OF INSULIN 03/04/2017 THADDEUS LEACH MD Ot Z79.84 WIND ENERGY TECHNICIAN (CURRENT) USE OF ORAL HYPOGLYC 03/04/2017 THADDEUS LEACH MD Ot Z87.442 PERSONAL HISTORY OF URINARY CALCULI 03/04/2017 THADDEUS LEACH MD Ot Z90.710 ACQUIRED ABSENCE OF BOTH CERVIX AND UTER 03/19/2017 RIVKA PAGE DO Ot R25.1 TREMOR, UNSPECIFIED 03/19/2017 RIVKA PAGE DO Ot R53.1 WEAKNESS 03/27/2017 RIVKA PAGE DO, Ot M25.752 OSTEOPHYTE, LEFT HIP 03/27/2017 RIVKA PAGE DO, Ot M76.892 OTMarika ENTHESOPATHIES OF LEFT LOWER LIMB, E 04/13/2017 MOOKIE FERNANDEZ DO Ot N17.9 ACUTE KIDNEY FAILURE, UNSPECIFIED 04/14/2017 RIVKA PAGE DO, Ot M25.752 OSTEOPHYTE, LEFT HIP 04/14/2017 RIVKA PAGE DO, Ot M76.892 OTMarika ENTHESOPATHIES OF LEFT LOWER LIMB, E 05/19/2017 MARY NGUYEN DO Ot D72.829 ELEVATED WHITE BLOOD CELL COUNT, UNSPECI 05/19/2017 MARY NGUYEN DO Ot E11.9 TYPE 2 DIABETES MELLITUS WITHOUT COMPLIC 05/19/2017 PATRICK SETH MARY Ot E86.1 HYPOVOLEMIA 05/19/2017 PATRICK SETH MARY Ot E87.6 HYPOKALEMIA 05/19/2017 PATRICK SETH MARY Ot N39.0 URINARY TRACT INFECTION, SITE NOT SPECIF 05/19/2017 PATRICK SETH MARY Ot R53.1 WEAKNESS 05/19/2017 PATRICK SETHBERTINI Ot 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 05/19/2017 NGUYENBASSAM SETH MARY Ot Z79.899 OTHER WIND ENERGY TECHNICIAN (CURRENT) DRUG THERAPY 05/31/2017 SOFY AVINA APRN Ot E11.9 TYPE 2 DIABETES MELLITUS WITHOUT COMPLIC 05/31/2017 SOFY AVINA APRN Ot F32.9 MAJOR DEPRESSIVE DISORDER, SINGLE EPISOD 05/31/2017 SOFY AVINA APRN Ot F41.9 ANXIETY DISORDER, UNSPECIFIED 05/31/2017 SOFY AVINA APRN Ot G20 PARKINSON'S DISEASE 05/31/2017 SOFY AVINA APRN Ot K21.9 GASTRO-ESOPHAGEAL REFLUX DISEASE WITHOUT 05/31/2017 SOFY AVINA APRN Ot N39.0 URINARY TRACT INFECTION, SITE NOT SPECIF 05/31/2017 SOFY AVINA APRN Ot R10.31 RIGHT LOWER QUADRANT PAIN 05/31/2017 SOFY AVINA APRN Ot 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 05/31/2017 SOFY AVINA APRN Ot Z87.442 PERSONAL HISTORY OF URINARY CALCULI 05/31/2017 SOFY AVINA APRN Ot Z90.710 ACQUIRED ABSENCE OF BOTH CERVIX AND UTER 06/02/2017 SOFY AVINA APRN Ot E11.9 TYPE 2 DIABETES MELLITUS WITHOUT COMPLIC 06/02/2017 SOFY AVINA APRN Ot F32.9 MAJOR DEPRESSIVE DISORDER, SINGLE EPISOD 06/02/2017 SOFY AVINA APRN Ot F41.9 ANXIETY DISORDER, UNSPECIFIED 06/02/2017 SOFY AVINA APRN Ot G20 PARKINSON'S DISEASE 06/02/2017 SOFY AVINA APRN Ot K21.9 GASTRO-ESOPHAGEAL REFLUX DISEASE WITHOUT 06/02/2017 SOFY AVINA APRN Ot N39.0 URINARY TRACT INFECTION, SITE NOT SPECIF 06/02/2017 SOFY AVINA APRN Ot R10.31 RIGHT LOWER QUADRANT PAIN 06/02/2017 SOFY AVINA APRN Ot 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 06/02/2017 SOFY AVINA APRN Ot Z87.442 PERSONAL HISTORY OF URINARY CALCULI 06/02/2017 SOFY AVINA APRN Ot Z90.710 ACQUIRED ABSENCE OF BOTH CERVIX AND UTER 06/11/2017 SARAI FIORE MD, Ot K59.00 CONSTIPATION, UNSPECIFIED 06/11/2017 SARAI FIORE MD Ot N20.0 CALCULUS OF KIDNEY 06/11/2017 SARAI FIORE MD, Ot N20.0 CALCULUS OF KIDNEY 06/11/2017 RIVKA PAGE DO Ot M25.752 OSTEOPHYTE, LEFT HIP 06/11/2017 RIVKA PAGE DO Ot M76.892 OTH ENTHESOPATHIES OF LEFT LOWER LIMB, E 06/11/2017 MOOKIE FERNANDEZ DO Ot N17.9 ACUTE KIDNEY FAILURE, UNSPECIFIED 06/11/2017 FARZAD DUKES MD Ot E11.9 TYPE 2 DIABETES MELLITUS WITHOUT COMPLIC 06/12/2017 FARZAD DUKES MD Ot G20 PARKINSON'S DISEASE 06/12/2017 FARZAD DUKES MD, Ot M79.605 PAIN IN LEFT LEG 07/03/2017 FARZAD DUKES MD Ot G20 PARKINSON'S DISEASE 07/03/2017 FARZAD DUKES MD, Ot M79.605 PAIN IN LEFT LEG Procedures Code Description [place] [address] INDIV PSYTX 45/50 MIN 05/10/2012 81828 INDIV PSYTX 45/50 MIN 06/04/2012 04101 PSYCH PHARM MGMT 06/04/2012 11466 INDIV PSYTX 45/50 MIN 06/16/2012 24845 EKG, TRACING (IN-HOUSE) 07/29/2012 09536 ROUTINE VENIPUNCTURE 09/07/2012 98878 GLUCOSE 09/07/2012 05301 LIPID PANEL 09/07/2012 55781 PSYTX PT&/FAMILY 45 MINUTES 09/22/2012 35704 PSYTX PT&/FAMILY 45 MINUTES 10/07/2012 44428 PSYTX PT&/FAMILY 45 MINUTES 11/02/2012 41624 PSYTX PT&/FAMILY 45 MINUTES 11/19/2012 70632 PSYTX PT&/FAMILY 45 MINUTES 12/07/2012 72343 PSYTX PT&/FAMILY 45 MINUTES 12/20/2012 06646 PSYTX PT&/FAMILY 45 MINUTES 12/31/2012 75771 PSYTX PT&/FAMILY 30 MINUTES 02/11/2013 14119 PSYTX PT&/FAMILY 30 MINUTES 03/25/2013 30184 PSYTX PT&/FAMILY 30 MINUTES 04/15/2013 81212 PSYTX PT&/FAMILY 45 MINUTES 05/05/2013 13820 PSYTX PT&/FAMILY 45 MINUTES 05/23/2013 43152 PSYTX PT&/FAMILY 30 MINUTES 06/17/2013 77122 PSYTX PT&/FAMILY 45 MINUTES 07/07/2013 85894 PSYTX PT&/FAMILY 45 MINUTES 07/21/2013 37391 PSYTX PT&/FAMILY 45 MINUTES 08/01/2013 47294 PSYTX PT&/FAMILY 45 MINUTES 08/12/2013 38035 PSYTX PT&/FAMILY 45 MINUTES 08/31/2013 64852 PSYTX PT&/FAMILY 45 MINUTES 09/23/2013 13278 PSYTX PT&/FAMILY 45 MINUTES 10/18/2013 16114 PSYTX PT&/FAMILY 45 MINUTES 11/11/2013 66584 PSYTX PT&/FAMILY 45 MINUTES 12/09/2013 19525 PSYTX PT&/FAMILY 45 MINUTES 12/30/2013 58653 PSYTX PT&/FAMILY 45 MINUTES 01/04/2014 63561 PSYTX PT&/FAMILY 45 MINUTES 01/13/2014 06753 PSYTX PT&/FAMILY 30 MINUTES 01/20/2014 49343 PSYTX PT&/FAMILY 30 MINUTES 02/10/2014 89743 PSYTX PT&/FAMILY 45 MINUTES 02/24/2014 43281 PSYTX PT&/FAMILY 30 MINUTES 03/23/2014 43260 PSYTX PT&/FAMILY 45 MINUTES 04/05/2014 06823 PSYTX PT&/FAMILY 45 MINUTES 05/24/2014 10263 PSYTX PT&/FAMILY 45 MINUTES 07/13/2014 56.0 TU REMOV URETER OBSTRUCT 02/07/2015 59.8 URETERAL CATHETERIZATION 02/07/2015 Results Test Result Range Serum or plasma renal function panel (Na, K, Cl, CO2, BUN, Cr, glucose,Ca, phos , alb) - 03/18/17 08:43 Serum or plasma sodium measurement (moles/volume) 138 mmol/L 135-145 Serum or plasma potassium measurement (moles/volume) 4.2 mmol/L 3.6-5.0 Serum or plasma chloride measurement (moles/volume) 104 mmol/L 98-107 Carbon dioxide 23 mmol/L 21-32 Serum or plasma anion gap determination (moles/volume) 11 mmol/L 5-14 Serum or plasma urea nitrogen measurement (mass/volume) 20 mg/dL 7-18 Serum or plasma creatinine measurement (mass/volume) 0.93 mg/dL 0.60-1.30 Serum or plasma urea nitrogen/creatinine mass ratio 22 NRG Serum or plasma creatinine measurement with calculation of estimated glomerular filtration rate > NRG Serum or plasma glucose measurement (mass/volume) 178 mg/dL 70-105 Serum or plasma calcium measurement (mass/volume) 8.8 mg/dL 8.5-10.1 Serum or plasma albumin measurement (mass/volume) 3.5 g/dL 3.2-4.5 Serum or plasma phosphate measurement (mass/volume) 3.3 mg/dL 2.3-4.7 Complete blood count (CBC) with automated white blood cell (WBC) differential - 05/15/17 03:45 Blood leukocytes automated count (number/volume) 22.2 10*3/uL 4.3-11.0 Blood erythrocytes automated count (number/volume) 4.62 10*6/uL 4.35-5.85 Venous blood hemoglobin measurement (mass/volume) 13.2 g/dL 11.5-16.0 Blood hematocrit (volume fraction) 38 % 35-52 Automated erythrocyte mean corpuscular volume 82 [foz_us] 80-99 Automated erythrocyte mean corpuscular hemoglobin (mass per erythrocyte) 29 pg 25-34 Automated erythrocyte mean corpuscular hemoglobin concentration measurement ( mass/volume) 35 g/dL 32-36 Automated erythrocyte distribution width ratio 15.3 % 10.0-14.5 Automated blood platelet count (count/volume) 376 10*3/uL 130-400 Automated blood platelet mean volume measurement 9.1 [foz_us] 7.4-10.4 Automated blood neutrophils/100 leukocytes 86 % 42-75 Automated blood lymphocytes/100 leukocytes 4 % 12-44 Blood monocytes/100 leukocytes 10 % 0-12 Automated blood eosinophils/100 leukocytes 0 % 0-10 Automated blood basophils/100 leukocytes 0 % 0-10 Blood neutrophils automated count (number/volume) 19.1 10*3 1.8-7.8 Blood lymphocytes automated count (number/volume) 0.9 10*3 1.0-4.0 Blood monocytes automated count (number/volume) 2.1 10*3 0.0-1.0 Automated eosinophil count 0.0 10*3/uL 0.0-0.3 Automated blood basophil count (count/volume) 0.0 10*3/uL 0.0-0.1 Comprehensive metabolic panel - 05/15/17 03:45 Serum or plasma sodium measurement (moles/volume) 139 mmol/L 135-145 Serum or plasma potassium measurement (moles/volume) 3.0 mmol/L 3.6-5.0 Serum or plasma chloride measurement (moles/volume) 104 mmol/L 98-107 Carbon dioxide 17 mmol/L 21-32 Serum or plasma anion gap determination (moles/volume) 18 mmol/L 5-14 Serum or plasma urea nitrogen measurement (mass/volume) 18 mg/dL 7-18 Serum or plasma creatinine measurement (mass/volume) 1.17 mg/dL 0.60-1.30 Serum or plasma urea nitrogen/creatinine mass ratio 15 NRG Serum or plasma creatinine measurement with calculation of estimated glomerular filtration rate 46 NRG Serum or plasma glucose measurement (mass/volume) 242 mg/dL 70-105 Serum or plasma calcium measurement (mass/volume) 10.2 mg/dL 8.5-10.1 Serum or plasma total bilirubin measurement (mass/volume) 0.8 mg/dL 0.1-1.0 Serum or plasma alkaline phosphatase measurement (enzymatic activity/volume) 78 U/L 40-136 Serum or plasma aspartate aminotransferase measurement (enzymatic activity/ volume) 29 U/L 5-34 Serum or plasma alanine aminotransferase measurement (enzymatic activity/volume ) 24 U/L 0-55 Serum or plasma protein measurement (mass/volume) 8.5 g/dL 6.4-8.2 Serum or plasma albumin measurement (mass/volume) 4.2 g/dL 3.2-4.5 Blood manual differential performed detection - 05/15/17 03:45 Blood monocytes/100 leukocytes 6 % NRG Manual blood segmented neutrophils/100 leukocytes 91 % NRG Blood band neutrophils/100 leukocytes 1 % NRG Manual blood lymphocytes/100 leukocytes 2 % NRG Manual eosinophils/100 leukocytes in nose 0 % NRG Manual blood basophils/100 leukocytes 0 % NRG Blood anisocytosis detection by light microscopy SLIGHT NRG Serum or plasma creatine kinase measurement (enzymatic activity/volume) - 05/15 03:45 Serum or plasma creatine kinase measurement (enzymatic activity/volume) 522 U/L 29-168 Influenza virus A and B antigen detection - 05/15/17 04:02 FLU RESULT NEGATIVE FOR INFLUENZA A AND B ANTIGENS BY IA NRG Complete urinalysis with reflex to culture - 05/15/17 04:26 Urine color determination YELLOW NRG Urine clarity determination SLIGHTLY CLOUDY NRG Urine pH measurement by test strip 6 5-9 Specific gravity of urine by test strip 1.010 1.016- 1.022 Urine protein assay by test strip, semi-quantitative 3+ NEGATIVE Urine glucose detection by automated test strip NEGATIVE NEGATIVE Erythrocytes detection in urine sediment by light microscopy 4+ NEGATIVE Urine ketones detection by automated test strip 2+ NEGATIVE Urine nitrite detection by test strip NEGATIVE NEGATIVE Urine total bilirubin detection by test strip NEGATIVE NEGATIVE Urine urobilinogen measurement by automated test strip (mass/volume) NORMAL NORMAL Urine leukocyte esterase detection by dipstick 3+ NEGATIVE Automated urine sediment erythrocyte count by microscopy (number/high power field) RARE NRG Automated urine sediment leukocyte count by microscopy (number/high power field ) [HPF] NRG Bacteria detection in urine sediment by light microscopy FEW NRG Squamous epithelial cells detection in urine sediment by light microscopy 0-2 NRG Crystals detection in urine sediment by light microscopy NONE NRG Casts detection in urine sediment by light microscopy NONE NRG Mucus detection in urine sediment by light microscopy MODERATE NRG Complete urinalysis with reflex to culture YES NRG Bacterial urine culture - 05/15/17 04:26 Bacterial urine culture [id number] NRG COLONY COUNT >100,000/ML NRG FTX;REPORTABLE SENSITIVITY REPORTED AT 0846, 05-17-17 NRG Bacterial susceptibility panel - 05/15/17 04:26 Gentamicin susceptibility test by minimum inhibitory concentration < = NRG Tobramycin susceptibility test by minimum inhibitory concentration < = NRG Piperacillin/tazobactam susceptibility test by minimum inhibitory concentration 32 NRG Ciprofloxacin susceptibility test by minimum inhibitory concentration <= NRG Meropenem susceptibility test by minimum inhibitory concentration 1 NRG Cefepime susceptibility test by minimum inhibitory concentration 4 NRG Whole blood basic metabolic panel - 05/15/17 09:40 Serum or plasma sodium measurement (moles/volume) 140 mmol/L 135-145 Serum or plasma potassium measurement (moles/volume) 3.3 mmol/L 3.6-5.0 Serum or plasma chloride measurement (moles/volume) 111 mmol/L 98-107 Carbon dioxide 16 mmol/L 21-32 Serum or plasma anion gap determination (moles/volume) 13 mmol/L 5-14 Serum or plasma urea nitrogen measurement (mass/volume) 15 mg/dL 7-18 Serum or plasma creatinine measurement (mass/volume) 0.84 mg/dL 0.60-1.30 Serum or plasma urea nitrogen/creatinine mass ratio 18 NRG Serum or plasma creatinine measurement with calculation of estimated glomerular filtration rate > NRG Serum or plasma glucose measurement (mass/volume) 214 mg/dL 70-105 Serum or plasma calcium measurement (mass/volume) 9.2 mg/dL 8.5-10.1 Serum or plasma creatine kinase measurement (enzymatic activity/volume) - 05/15 09:40 Serum or plasma creatine kinase measurement (enzymatic activity/volume) 416 U/L 29-168 Capillary blood glucose measurement by glucometer (mass/volume) - 05/15/17 10: 49 Capillary blood glucose measurement by glucometer (mass/volume) 184 mg/dL 70-110 Capillary blood glucose measurement by glucometer (mass/volume) - 05/15/17 16: 05 Capillary blood glucose measurement by glucometer (mass/volume) 164 mg/dL 70-110 Capillary blood glucose measurement by glucometer (mass/volume) - 05/15/17 20: 29 Capillary blood glucose measurement by glucometer (mass/volume) 188 mg/dL 70-110 Capillary blood glucose measurement by glucometer (mass/volume) - 05/16/17 05: 44 Capillary blood glucose measurement by glucometer (mass/volume) 110 mg/dL 70-110 Complete blood count (CBC) with automated white blood cell (WBC) differential - 05/16/17 06:27 Blood leukocytes automated count (number/volume) 14.1 10*3/uL 4.3-11.0 Blood erythrocytes automated count (number/volume) 3.54 10*6/uL 4.35-5.85 Venous blood hemoglobin measurement (mass/volume) 10.2 g/dL 11.5-16.0 Blood hematocrit (volume fraction) 30 % 35-52 Automated erythrocyte mean corpuscular volume 84 [foz_us] 80-99 Automated erythrocyte mean corpuscular hemoglobin (mass per erythrocyte) 29 pg 25-34 Automated erythrocyte mean corpuscular hemoglobin concentration measurement ( mass/volume) 34 g/dL 32-36 Automated erythrocyte distribution width ratio 15.9 % 10.0-14.5 Automated blood platelet count (count/volume) 298 10*3/uL 130-400 Automated blood platelet mean volume measurement 9.2 [foz_us] 7.4-10.4 Automated blood neutrophils/100 leukocytes 83 % 42-75 Automated blood lymphocytes/100 leukocytes 7 % 12-44 Blood monocytes/100 leukocytes 10 % 0-12 Automated blood eosinophils/100 leukocytes 0 % 0-10 Automated blood basophils/100 leukocytes 0 % 0-10 Blood neutrophils automated count (number/volume) 11.8 10*3 1.8-7.8 Blood lymphocytes automated count (number/volume) 1.0 10*3 1.0-4.0 Blood monocytes automated count (number/volume) 1.4 10*3 0.0-1.0 Automated eosinophil count 0.0 10*3/uL 0.0-0.3 Automated blood basophil count (count/volume) 0.0 10*3/uL 0.0-0.1 Whole blood basic metabolic panel - 05/16/17 06:27 Serum or plasma sodium measurement (moles/volume) 137 mmol/L 135-145 Serum or plasma potassium measurement (moles/volume) 3.4 mmol/L 3.6-5.0 Serum or plasma chloride measurement (moles/volume) 112 mmol/L 98-107 Carbon dioxide 15 mmol/L 21-32 Serum or plasma anion gap determination (moles/volume) 10 mmol/L 5-14 Serum or plasma urea nitrogen measurement (mass/volume) 11 mg/dL 7-18 Serum or plasma creatinine measurement (mass/volume) 0.72 mg/dL 0.60-1.30 Serum or plasma urea nitrogen/creatinine mass ratio 15 NRG Serum or plasma creatinine measurement with calculation of estimated glomerular filtration rate > NRG Serum or plasma glucose measurement (mass/volume) 108 mg/dL 70-105 Serum or plasma calcium measurement (mass/volume) 8.4 mg/dL 8.5-10.1 Capillary blood glucose measurement by glucometer (mass/volume) - 05/16/17 10: 00 Capillary blood glucose measurement by glucometer (mass/volume) 121 mg/dL 70-110 Capillary blood glucose measurement by glucometer (mass/volume) - 05/16/17 14: 43 Capillary blood glucose measurement by glucometer (mass/volume) 177 mg/dL 70-110 Capillary blood glucose measurement by glucometer (mass/volume) - 05/16/17 19: 50 Capillary blood glucose measurement by glucometer (mass/volume) 115 mg/dL 70-110 Complete blood count (CBC) with automated white blood cell (WBC) differential - 05/17/17 04:42 Blood leukocytes automated count (number/volume) 9.1 10*3/uL 4.3-11.0 Blood erythrocytes automated count (number/volume) 3.54 10*6/uL 4.35-5.85 Venous blood hemoglobin measurement (mass/volume) 10.0 g/dL 11.5-16.0 Blood hematocrit (volume fraction) 30 % 35-52 Automated erythrocyte mean corpuscular volume 86 [foz_us] 80-99 Automated erythrocyte mean corpuscular hemoglobin (mass per erythrocyte) 28 pg 25-34 Automated erythrocyte mean corpuscular hemoglobin concentration measurement ( mass/volume) 33 g/dL 32-36 Automated erythrocyte distribution width ratio 15.8 % 10.0-14.5 Automated blood platelet count (count/volume) 297 10*3/uL 130-400 Automated blood platelet mean volume measurement 9.7 [foz_us] 7.4-10.4 Automated blood neutrophils/100 leukocytes 69 % 42-75 Automated blood lymphocytes/100 leukocytes 18 % 12-44 Blood monocytes/100 leukocytes 11 % 0-12 Automated blood eosinophils/100 leukocytes 2 % 0-10 Automated blood basophils/100 leukocytes 0 % 0-10 Blood neutrophils automated count (number/volume) 6.3 10*3 1.8-7.8 Blood lymphocytes automated count (number/volume) 1.6 10*3 1.0-4.0 Blood monocytes automated count (number/volume) 1.0 10*3 0.0-1.0 Automated eosinophil count 0.2 10*3/uL 0.0-0.3 Automated blood basophil count (count/volume) 0.0 10*3/uL 0.0-0.1 Whole blood basic metabolic panel - 05/17/17 04:42 Serum or plasma sodium measurement (moles/volume) 135 mmol/L 135-145 Serum or plasma potassium measurement (moles/volume) 4.1 mmol/L 3.6-5.0 Serum or plasma chloride measurement (moles/volume) 113 mmol/L 98-107 Carbon dioxide 15 mmol/L 21-32 Serum or plasma anion gap determination (moles/volume) 7 mmol/L 5-14 Serum or plasma urea nitrogen measurement (mass/volume) 9 mg/dL 7-18 Serum or plasma creatinine measurement (mass/volume) 0.72 mg/dL 0.60-1.30 Serum or plasma urea nitrogen/creatinine mass ratio 13 NRG Serum or plasma creatinine measurement with calculation of estimated glomerular filtration rate > NRG Serum or plasma glucose measurement (mass/volume) 105 mg/dL 70-105 Serum or plasma calcium measurement (mass/volume) 8.4 mg/dL 8.5-10.1 Capillary blood glucose measurement by glucometer (mass/volume) - 05/17/17 11: 12 Capillary blood glucose measurement by glucometer (mass/volume) 115 mg/dL 70-110 Capillary blood glucose measurement by glucometer (mass/volume) - 05/17/17 14: 27 Capillary blood glucose measurement by glucometer (mass/volume) 136 mg/dL 70-110 Capillary blood glucose measurement by glucometer (mass/volume) - 05/17/17 20: 17 Capillary blood glucose measurement by glucometer (mass/volume) 129 mg/dL 70-110 Capillary blood glucose measurement by glucometer (mass/volume) - 05/18/17 05: 26 Capillary blood glucose measurement by glucometer (mass/volume) 67 mg/dL 70-110 Capillary blood glucose measurement by glucometer (mass/volume) - 05/18/17 06: 56 Capillary blood glucose measurement by glucometer (mass/volume) 171 mg/dL 70-110 Capillary blood glucose measurement by glucometer (mass/volume) - 05/18/17 09: 19 Capillary blood glucose measurement by glucometer (mass/volume) 96 mg/dL 70-110 Capillary blood glucose measurement by glucometer (mass/volume) - 05/18/17 13: 50 Capillary blood glucose measurement by glucometer (mass/volume) 119 mg/dL 70-110 Capillary blood glucose measurement by glucometer (mass/volume) - 05/18/17 19: 03 Capillary blood glucose measurement by glucometer (mass/volume) 177 mg/dL 70-110 Capillary blood glucose measurement by glucometer (mass/volume) - 05/19/17 04: 12 Capillary blood glucose measurement by glucometer (mass/volume) 86 mg/dL 70-110 Capillary blood glucose measurement by glucometer (mass/volume) - 05/19/17 05: 20 Capillary blood glucose measurement by glucometer (mass/volume) 113 mg/dL 70-110 Capillary blood glucose measurement by glucometer (mass/volume) - 05/19/17 10: 57 Capillary blood glucose measurement by glucometer (mass/volume) 112 mg/dL 70-110 Complete urinalysis with reflex to culture - 05/31/17 10:12 Urine color determination YELLOW NRG Urine clarity determination SLIGHTLY CLOUDY NRG Urine pH measurement by test strip 6.5 5-9 Specific gravity of urine by test strip 1.010 1.016- 1.022 Urine protein assay by test strip, semi-quantitative NEGATIVE NEGATIVE Urine glucose detection by automated test strip NEGATIVE NEGATIVE Erythrocytes detection in urine sediment by light microscopy NEGATIVE NEGATIVE Urine ketones detection by automated test strip NEGATIVE NEGATIVE Urine nitrite detection by test strip NEGATIVE NEGATIVE Urine total bilirubin detection by test strip NEGATIVE NEGATIVE Urine urobilinogen measurement by automated test strip (mass/volume) NORMAL NORMAL Urine leukocyte esterase detection by dipstick 2+ NEGATIVE Automated urine sediment erythrocyte count by microscopy (number/high power field) NONE NRG Automated urine sediment leukocyte count by microscopy (number/high power field ) [HPF] NRG Bacteria detection in urine sediment by light microscopy TRACE NRG Squamous epithelial cells detection in urine sediment by light microscopy 5-10 NRG Crystals detection in urine sediment by light microscopy NONE NRG Casts detection in urine sediment by light microscopy NONE NRG Mucus detection in urine sediment by light microscopy NEGATIVE NRG Complete urinalysis with reflex to culture YES NRG Bacterial urine culture - 05/31/17 10:12 Bacterial urine culture [id number] NRG COLONY COUNT <10,000 NRG Complete blood count (CBC) with automated white blood cell (WBC) differential - 05/31/17 10:53 Blood leukocytes automated count (number/volume) 7.2 10*3/uL 4.3-11.0 Blood erythrocytes automated count (number/volume) 4.41 10*6/uL 4.35-5.85 Venous blood hemoglobin measurement (mass/volume) 12.5 g/dL 11.5-16.0 Blood hematocrit (volume fraction) 37 % 35-52 Automated erythrocyte mean corpuscular volume 85 [foz_us] 80-99 Automated erythrocyte mean corpuscular hemoglobin (mass per erythrocyte) 28 pg 25-34 Automated erythrocyte mean corpuscular hemoglobin concentration measurement ( mass/volume) 34 g/dL 32-36 Automated erythrocyte distribution width ratio 15.1 % 10.0-14.5 Automated blood platelet count (count/volume) 439 10*3/uL 130-400 Automated blood platelet mean volume measurement 9.1 [foz_us] 7.4-10.4 Automated blood neutrophils/100 leukocytes 70 % 42-75 Automated blood lymphocytes/100 leukocytes 21 % 12-44 Blood monocytes/100 leukocytes 7 % 0-12 Automated blood eosinophils/100 leukocytes 1 % 0-10 Automated blood basophils/100 leukocytes 0 % 0-10 Blood neutrophils automated count (number/volume) 5.1 10*3 1.8-7.8 Blood lymphocytes automated count (number/volume) 1.5 10*3 1.0-4.0 Blood monocytes automated count (number/volume) 0.5 10*3 0.0-1.0 Automated eosinophil count 0.1 10*3/uL 0.0-0.3 Automated blood basophil count (count/volume) 0.0 10*3/uL 0.0-0.1 Whole blood basic metabolic panel - 05/31/17 10:53 Serum or plasma sodium measurement (moles/volume) 140 mmol/L 135-145 Serum or plasma potassium measurement (moles/volume) 3.2 mmol/L 3.6-5.0 Serum or plasma chloride measurement (moles/volume) 108 mmol/L 98-107 Carbon dioxide 21 mmol/L 21-32 Serum or plasma anion gap determination (moles/volume) 11 mmol/L 5-14 Serum or plasma urea nitrogen measurement (mass/volume) 10 mg/dL 7-18 Serum or plasma creatinine measurement (mass/volume) 0.86 mg/dL 0.60-1.30 Serum or plasma urea nitrogen/creatinine mass ratio 12 NRG Serum or plasma creatinine measurement with calculation of estimated glomerular filtration rate > NRG Serum or plasma glucose measurement (mass/volume) 114 mg/dL 70-105 Serum or plasma calcium measurement (mass/volume) 9.2 mg/dL 8.5-10.1 Automated blood complete blood count (hemogram) panel - 06/11/17 10:31 Blood leukocytes automated count (number/volume) 6.4 10*3/uL 4.3-11.0 Blood erythrocytes automated count (number/volume) 4.39 10*6/uL 4.35-5.85 Venous blood hemoglobin measurement (mass/volume) 12.5 g/dL 11.5-16.0 Blood hematocrit (volume fraction) 38 % 35-52 Automated erythrocyte mean corpuscular volume 85 [foz_us] 80-99 Automated erythrocyte mean corpuscular hemoglobin (mass per erythrocyte) 29 pg 25-34 Automated erythrocyte mean corpuscular hemoglobin concentration measurement ( mass/volume) 33 g/dL 32-36 Automated erythrocyte distribution width ratio 14.9 % 10.0-14.5 Automated blood platelet count (count/volume) 368 10*3/uL 130-400 Automated blood platelet mean volume measurement 9.1 [foz_us] 7.4-10.4 Blood lactic acid measurement (moles/volume) - 06/11/17 10:31 Blood lactic acid measurement (moles/volume) 1.58 mmol/L 0.50-2.00 Erythrocyte sedimentation rate by westergren method - 06/11/17 10:31 Erythrocyte sedimentation rate by westergren method 25 mm 0-30 Comprehensive metabolic panel - 06/11/17 10:31 Serum or plasma sodium measurement (moles/volume) 138 mmol/L 135-145 Serum or plasma potassium measurement (moles/volume) 3.3 mmol/L 3.6-5.0 Serum or plasma chloride measurement (moles/volume) 107 mmol/L 98-107 Carbon dioxide 21 mmol/L 21-32 Serum or plasma anion gap determination (moles/volume) 10 mmol/L 5-14 Serum or plasma urea nitrogen measurement (mass/volume) 8 mg/dL 7-18 Serum or plasma creatinine measurement (mass/volume) 0.97 mg/dL 0.60-1.30 Serum or plasma urea nitrogen/creatinine mass ratio 8 NRG Serum or plasma creatinine measurement with calculation of estimated glomerular filtration rate 58 NRG Serum or plasma glucose measurement (mass/volume) 154 mg/dL 70-105 Serum or plasma calcium measurement (mass/volume) 9.3 mg/dL 8.5-10.1 Serum or plasma total bilirubin measurement (mass/volume) 0.5 mg/dL 0.1-1.0 Serum or plasma alkaline phosphatase measurement (enzymatic activity/volume) 81 U/L 40-136 Serum or plasma aspartate aminotransferase measurement (enzymatic activity/ volume) 23 U/L 5-34 Serum or plasma alanine aminotransferase measurement (enzymatic activity/volume ) < U/L 0-55 Serum or plasma protein measurement (mass/volume) 8.0 g/dL 6.4-8.2 Serum or plasma albumin measurement (mass/volume) 4.1 g/dL 3.2-4.5 Serum or plasma creatine kinase measurement (enzymatic activity/volume) - 06/11 10:31 Serum or plasma creatine kinase measurement (enzymatic activity/volume) 59 U/L 29-168 Serum or plasma C reactive protein measurement (mass/volume) - 06/11/17 10:31 Serum or plasma C reactive protein measurement (mass/volume) 0.29 mg /dL 0.00-0.50 Serum aldolase measurement - 06/11/17 10:31 Serum aldolase measurement 1.7 U/L 1.5-8.1 [id number] - 06/11/17 10:31 Screening antinuclear antibody (ANY) assay by enzyme immunoassay <1: 80 <1:80 Serum DNA double strand antibody detection - 06/11/17 10:31 Serum DNA double strand antibody assay (units/volume) 76 [iU]/mL 0-300 Serum or plasma complement C3 measurement (mass/volume) - 06/11/17 10:31 Complement C3 nephritic [mass/volume] in serum or plasma 112 mg/dL 73-183 Complement C4 [mass/volume] in serum or plasma - 06/11/17 10:31 Complement C4 [mass/volume] in serum or plasma 23 mg/dL 15-59 Serum protein electrophoresis - 06/11/17 10:31 Serum or plasma protein measurement (mass/volume) 7.5 % 6.5-8.2 Pathology consultation and report SEE PATH REPORT NRG SS-A and SS-B antibody assay - 06/11/17 10:31 SS-A antibody assay < eq/mL <20 SS-B antibody assay < eq/mL <20 Cyanocobalamin measurement - 06/11/17 10:31 Vitamin B12 419 pg/mL 200-1000 Serum or plasma pyruvate measurement (moles/volume) - 06/11/17 10:31 Serum or plasma pyruvate measurement (mass/volume) 0.84 % 0.30-1.50 [id number] - 06/11/17 10:31 Serum Marshall extractable nuclear antigen (HAL) antibody assay (units/volume) < eq/mL <20 Scl-70 ab < eq/mL <20 Ribonucleic protein antibody assay <20 <20 Serum Estella-1 extractable nuclear antibody assay (units/volume) < eq/ mL <20 Hemoglobin A1c - 06/11/17 10:50 Hemoglobin A1c 5.9 % 4.5-6.2 THYROID STIMULATING HORMONE - 06/11/17 10:50 THYROID STIMULATING HORMONE 0.42 u[iU]/mL 0.35-4.94 Serum or plasma thyroxine (T4) free measurement (mass/volume) - 06/11/17 10:50 Serum or plasma thyroxine (T4) free measurement (mass/volume) 1.22 ng/dL 0.70-1.48 Complete urinalysis with reflex to culture - 08/01/17 09:15 Urine color determination YELLOW NRG Urine clarity determination SLIGHTLY CLOUDY NRG Urine pH measurement by test strip 6.5 5-9 Specific gravity of urine by test strip 1.010 1.016- 1.022 Urine protein assay by test strip, semi-quantitative 1+ NEGATIVE Urine glucose detection by automated test strip NEGATIVE NEGATIVE Erythrocytes detection in urine sediment by light microscopy 2+ NEGATIVE Urine ketones detection by automated test strip NEGATIVE NEGATIVE Urine nitrite detection by test strip POSITIVE NEGATIVE Urine total bilirubin detection by test strip NEGATIVE NEGATIVE Urine urobilinogen measurement by automated test strip (mass/volume) NORMAL NORMAL Urine leukocyte esterase detection by dipstick 3+ NEGATIVE Automated urine sediment erythrocyte count by microscopy (number/high power field) NONE NRG Automated urine sediment leukocyte count by microscopy (number/high power field ) > [HPF] NRG Bacteria detection in urine sediment by light microscopy MODERATE NRG Crystals detection in urine sediment by light microscopy NONE NRG Casts detection in urine sediment by light microscopy NONE NRG Complete urinalysis with reflex to culture YES NRG Bacterial urine culture - 08/01/17 09:15 Bacterial urine culture [id number] NRG COLONY COUNT >100,000/ML NRG FTX;REPORTABLE SENSITIVITY REPORTED 08/03 07:10 NRG Bacterial susceptibility panel - 08/01/17 09:15 Gentamicin susceptibility test by minimum inhibitory concentration < = NRG Tobramycin susceptibility test by minimum inhibitory concentration < = NRG Piperacillin/tazobactam susceptibility test by minimum inhibitory concentration S NRG Ciprofloxacin susceptibility test by minimum inhibitory concentration >= NRG Meropenem susceptibility test by minimum inhibitory concentration 1 NRG Cefepime susceptibility test by minimum inhibitory concentration <= NRG Complete blood count (CBC) with automated white blood cell (WBC) differential - 08/01/17 09:38 Blood leukocytes automated count (number/volume) 11.0 10*3/uL 4.3-11.0 Blood erythrocytes automated count (number/volume) 4.47 10*6/uL 4.35-5.85 Venous blood hemoglobin measurement (mass/volume) 12.4 g/dL 11.5-16.0 Blood hematocrit (volume fraction) 37 % 35-52 Automated erythrocyte mean corpuscular volume 83 [foz_us] 80-99 Automated erythrocyte mean corpuscular hemoglobin (mass per erythrocyte) 28 pg 25-34 Automated erythrocyte mean corpuscular hemoglobin concentration measurement ( mass/volume) 34 g/dL 32-36 Automated erythrocyte distribution width ratio 14.8 % 10.0-14.5 Automated blood platelet count (count/volume) 388 10*3/uL 130-400 Automated blood platelet mean volume measurement 9.2 [foz_us] 7.4-10.4 Automated blood neutrophils/100 leukocytes 79 % 42-75 Automated blood lymphocytes/100 leukocytes 14 % 12-44 Blood monocytes/100 leukocytes 7 % 0-12 Automated blood eosinophils/100 leukocytes 0 % 0-10 Automated blood basophils/100 leukocytes 0 % 0-10 Blood neutrophils automated count (number/volume) 8.7 10*3 1.8-7.8 Blood lymphocytes automated count (number/volume) 1.5 10*3 1.0-4.0 Blood monocytes automated count (number/volume) 0.7 10*3 0.0-1.0 Automated eosinophil count 0.0 10*3/uL 0.0-0.3 Automated blood basophil count (count/volume) 0.0 10*3/uL 0.0-0.1 Comprehensive metabolic panel - 08/01/17 09:38 Serum or plasma sodium measurement (moles/volume) 137 mmol/L 135-145 Serum or plasma potassium measurement (moles/volume) 3.7 mmol/L 3.6-5.0 Serum or plasma chloride measurement (moles/volume) 106 mmol/L 98-107 Carbon dioxide 19 mmol/L 21-32 Serum or plasma anion gap determination (moles/volume) 12 mmol/L 5-14 Serum or plasma urea nitrogen measurement (mass/volume) 10 mg/dL 7-18 Serum or plasma creatinine measurement (mass/volume) 1.02 mg/dL 0.60-1.30 Serum or plasma urea nitrogen/creatinine mass ratio 10 NRG Serum or plasma creatinine measurement with calculation of estimated glomerular filtration rate 54 NRG Serum or plasma glucose measurement (mass/volume) 134 mg/dL 70-105 Serum or plasma calcium measurement (mass/volume) 9.4 mg/dL 8.5-10.1 Serum or plasma total bilirubin measurement (mass/volume) 0.4 mg/dL 0.1-1.0 Serum or plasma alkaline phosphatase measurement (enzymatic activity/volume) 86 U/L 40-136 Serum or plasma aspartate aminotransferase measurement (enzymatic activity/ volume) 28 U/L 5-34 Serum or plasma alanine aminotransferase measurement (enzymatic activity/volume ) < U/L 0-55 Serum or plasma protein measurement (mass/volume) 8.0 g/dL 6.4-8.2 Serum or plasma albumin measurement (mass/volume) 4.1 g/dL 3.2-4.5 Capillary blood glucose measurement by glucometer (mass/volume) - 08/01/17 22: 18 Capillary blood glucose measurement by glucometer (mass/volume) 163 mg/dL 70-110 Complete blood count (CBC) with automated white blood cell (WBC) differential - 08/02/17 05:16 Blood leukocytes automated count (number/volume) 8.5 10*3/uL 4.3-11.0 Blood erythrocytes automated count (number/volume) 4.02 10*6/uL 4.35-5.85 Venous blood hemoglobin measurement (mass/volume) 11.1 g/dL 11.5-16.0 Blood hematocrit (volume fraction) 34 % 35-52 Automated erythrocyte mean corpuscular volume 84 [foz_us] 80-99 Automated erythrocyte mean corpuscular hemoglobin (mass per erythrocyte) 28 pg 25-34 Automated erythrocyte mean corpuscular hemoglobin concentration measurement ( mass/volume) 33 g/dL 32-36 Automated erythrocyte distribution width ratio 14.7 % 10.0-14.5 Automated blood platelet count (count/volume) 367 10*3/uL 130-400 Automated blood platelet mean volume measurement 9.9 [foz_us] 7.4-10.4 Automated blood neutrophils/100 leukocytes 56 % 42-75 Automated blood lymphocytes/100 leukocytes 30 % 12-44 Blood monocytes/100 leukocytes 10 % 0-12 Automated blood eosinophils/100 leukocytes 4 % 0-10 Automated blood basophils/100 leukocytes 0 % 0-10 Blood neutrophils automated count (number/volume) 4.7 10*3 1.8-7.8 Blood lymphocytes automated count (number/volume) 2.6 10*3 1.0-4.0 Blood monocytes automated count (number/volume) 0.9 10*3 0.0-1.0 Automated eosinophil count 0.3 10*3/uL 0.0-0.3 Automated blood basophil count (count/volume) 0.0 10*3/uL 0.0-0.1 Whole blood basic metabolic panel - 08/02/17 05:16 Serum or plasma sodium measurement (moles/volume) 139 mmol/L 135-145 Serum or plasma potassium measurement (moles/volume) 3.8 mmol/L 3.6-5.0 Serum or plasma chloride measurement (moles/volume) 112 mmol/L 98-107 Carbon dioxide 17 mmol/L 21-32 Serum or plasma anion gap determination (moles/volume) 10 mmol/L 5-14 Serum or plasma urea nitrogen measurement (mass/volume) 7 mg/dL 7-18 Serum or plasma creatinine measurement (mass/volume) 0.84 mg/dL 0.60-1.30 Serum or plasma urea nitrogen/creatinine mass ratio 8 NRG Serum or plasma creatinine measurement with calculation of estimated glomerular filtration rate > NRG Serum or plasma glucose measurement (mass/volume) 98 mg/dL 70-105 Serum or plasma calcium measurement (mass/volume) 9.1 mg/dL 8.5-10.1 Capillary blood glucose measurement by glucometer (mass/volume) - 08/02/17 05: 45 Capillary blood glucose measurement by glucometer (mass/volume) 92 mg/dL 70-110 Capillary blood glucose measurement by glucometer (mass/volume) - 08/02/17 10: 08 Capillary blood glucose measurement by glucometer (mass/volume) 175 mg/dL 70-110 Capillary blood glucose measurement by glucometer (mass/volume) - 08/02/17 14: 27 Capillary blood glucose measurement by glucometer (mass/volume) 193 mg/dL 70-110 Capillary blood glucose measurement by glucometer (mass/volume) - 08/02/17 19: 40 Capillary blood glucose measurement by glucometer (mass/volume) 142 mg/dL 70-110 Capillary blood glucose measurement by glucometer (mass/volume) - 08/03/17 05: 06 Capillary blood glucose measurement by glucometer (mass/volume) 131 mg/dL 70-110 Capillary blood glucose measurement by glucometer (mass/volume) - 08/03/17 10: 23 Capillary blood glucose measurement by glucometer (mass/volume) 232 mg/dL 70-110 Capillary blood glucose measurement by glucometer (mass/volume) - 08/03/17 14: 40 Capillary blood glucose measurement by glucometer (mass/volume) 141 mg/dL 70-110 Capillary blood glucose measurement by glucometer (mass/volume) - 08/03/17 19: 18 Capillary blood glucose measurement by glucometer (mass/volume) 178 mg/dL 70-110 Serum or plasma gentamicin measurement (mass/volume) - 08/03/17 22:35 Serum or plasma gentamicin measurement (mass/volume) 6.7 ug/mL <=10.0 Capillary blood glucose measurement by glucometer (mass/volume) - 08/04/17 05: 41 Capillary blood glucose measurement by glucometer (mass/volume) 120 mg/dL 70-110 Capillary blood glucose measurement by glucometer (mass/volume) - 08/04/17 10: 42 Capillary blood glucose measurement by glucometer (mass/volume) 178 mg/dL 70-110 Capillary blood glucose measurement by glucometer (mass/volume) - 08/04/17 14: 14 Capillary blood glucose measurement by glucometer (mass/volume) 168 mg/dL 70-110 Capillary blood glucose measurement by glucometer (mass/volume) - 08/04/17 20: 04 Capillary blood glucose measurement by glucometer (mass/volume) 145 mg/dL 70-110 Capillary blood glucose measurement by glucometer (mass/volume) - 08/04/17 21: 49 Capillary blood glucose measurement by glucometer (mass/volume) 147 mg/dL 70-110 Capillary blood glucose measurement by glucometer (mass/volume) - 08/05/17 04: 46 Capillary blood glucose measurement by glucometer (mass/volume) 169 mg/dL 70-110 Capillary blood glucose measurement by glucometer (mass/volume) - 08/05/17 09: 35 Capillary blood glucose measurement by glucometer (mass/volume) 146 mg/dL 70-110 Encounters ACCT No. Visit Date/Time Discharge Status Pt. Type Provider Facility Loc./Unit Complaint [id number] 09/06/2014 10:33:00 09/06/2014 23:59:59 [facility] Out[facility] JOSSIE TADEO [id number] 07/13/2014 13:43:00 07/13/2014 23:59:59 [facility] Outpatient RYNE CAMP PHD [id number] 06/09/2014 12:43:00 06/09/2014 23:59:59 [facility] Outpatient JOSSIE TADEO [id number] 06/09/2014 12:43:00 06/09/2014 23:59:59 [facility] Outpatient JOSSIE TADEO [id number] 05/24/2014 13:52:00 05/24/2014 23:59:59 [facility] Outpatient RYNE CAMP PHD [id number] 04/05/2014 12:49:00 04/05/2014 23:59:59 [facility] Outpatient RYNE CAMP PHD [id number] 03/09/2014 10:40:00 03/09/2014 23:59:59 RYNE Rascon PHD [id number] 02/24/2014 10:42:00 02/24/2014 23:59:59 RYNE Rascon PHD [id number] 02/10/2014 09:45:00 02/10/2014 23:59:59 RYNE Rascon PHD [id number] 01/20/2014 10:51:00 01/20/2014 23:59:59 [facility] Outpatient RYNE CAMP PHD [id number] 01/13/2014 10:51:00 01/13/2014 23:59:59 [facility] Outpatient RYNE CAMP PHD [id number] 01/04/2014 15:51:00 01/04/2014 23:59:59 [facility] Outpatient RYNE CAMP PHD [id number] 12/30/2013 08:49:00 12/30/2013 23:59:59 RYNE Rascon PHD [id number] 2013 15:47:00 2013 23:59:59 [facility] Outpatient RYNE CAMP PHD [id number] 12/02/2013 08:56:00 12/02/2013 23:59:59 [facility] Outpatient [facility] [employer] YASSINE JERNIGAN [id number] 11/11/2013 12:44:00 11/11/2013 23:59:59 [facility] Outpatient RYNE CAMP PHD [id number] 10/18/2013 15:38:00 10/18/2013 23:59:59 [facility] Outpatient RYNE CAMP PHD [id number] 09/30/2013 09:22:00 09/30/2013 23:59:59 [facility] Outpatient [employer], YASSINE JERNIGAN [id number] 09/23/2013 13:44:00 09/23/2013 23:59:59 [facility] Outpatient RYNE CAMP PHD [id number] 08/31/2013 14:52:00 08/31/2013 23:59:59 [facility] Outpatient RYNE CAMP PHD [id number] 08/18/2013 15:52:00 08/18/2013 23:59:59 [facility] Outpatient [employer], YASSINE JERNIGAN [id number] 08/12/2013 13:09:00 08/12/2013 23:59:59 [facility] Outpatient RYNE CAMP PHD [id number] 08/01/2013 08:53:00 08/01/2013 23:59:59 [facility] Outpatient [facility] [employer] [id number] 07/20/2013 13:51:00 07/20/2013 23:59:59 [facility] Outpatient RYNE CAMP PHD [id number] 07/07/2013 13:59:00 07/07/2013 23:59:59 [facility] Outpatient RYNE CAMP PHD [id number] 06/16/2013 13:47:00 06/16/2013 23:59:59 [facility] Outpatient RYNE CAMP PHD [id number] 05/23/2013 12:52:00 05/23/2013 23:59:59 [facility] Outpatient RYNE CAMP PHD [id number] 04/29/2013 14:56:00 04/29/2013 23:59:59 C[facility] Outpatient RYNE CAMP PHD [id number] 04/25/2013 11:23:00 04/25/2013 23:59:59 CLS Outpatient YASSINE ADAM APRN [id number] 04/15/2013 08:02:00 04/15/2013 23:59:59 CLS Outpatient RYNE CAMP PHD [id number] 03/24/2013 07:45:00 03/24/2013 23:59:59 [facility] Outpatient RYNE CAMP PHD [id number] 10/06/2012 13:51:00 10/06/2012 23:59:59 C[facility] Outpatient [id number] 09/17/2012 08:47:00 09/17/2012 23:59:59 C[facility] Outpatient RYNE CAMP PHD [id number] 07/26/2012 12:20:00 07/26/2012 23:59:59 CLS Outpatient EN PEARSON DO [id number] 06/16/2012 10:45:00 06/16/2012 23:59:59 CLS Outpatient RYNE CAMP PHD [id number] 06/04/2012 12:11:00 06/04/2012 23:59:59 CLS Outpatient [id number] 05/10/2012 09:47:00 05/10/2012 23:59:59 CLS Outpatient EN PEARSON DO [id number] 02/11/2013 07:53:00 Document Registration [id number] 12/31/2012 07:50:00 Document Registration [id number] 12/20/2012 10:51:00 Document Registration [id number] 12/03/2012 08:58:00 Document Registration [id number] 11/18/2012 13:48:00 Document Registration [id number] 10/28/2012 07:59:00 Document Registration [id number] 08/01/2017 08:17:00 08/01/2017 23:59:59 CLS Emergency DARIEL TREVIZO MD [facility] ER FALL, HEAD BLEEDING [id number] 06/11/2017 10:16:00 06/11/2017 23:59:59 CLS Outpatient FARZAD DUKES MD [facility] LAB G20 [id number] 05/31/2017 09:22:00 05/31/2017 11:34:00 DIS Emergency SOFY AVINA APRN [facility] ER UTI [id number] 05/15/2017 06:20:00 05/19/2017 14:15:00 DIS Inpatient MARY NGUYEN DO [facility] 4TH HYPOKALEMIA,UTI,WEAKNESS, HYPOVOLEMIA, [id number] 03/19/2017 07:59:00 03/19/2017 09:35:00 DIS Outpatient RIVKA PAGE DO [facility] REHAB PHYSICAL DECONDITIONING [id number] 03/18/2017 08:26:00 03/18/2017 23:59:59 CLS Outpatient MOOKIE FERNANDEZ DO [facility] LAB KALEE N17.9 [id number] 03/05/2017 15:12:00 03/05/2017 23:59:59 CLS Outpatient RIVKA PAGE DO [facility] RAD INTRACTIBLE PAIN [id number] 03/02/2017 00:17:00 03/02/2017 02:01:00 DIS Emergency THADDEUS LEACH MD [facility] ER HIP PAIN [id number] 02/27/2017 17:24:00 02/27/2017 18:49:00 DIS Emergency DARIEL TREVIZO MD [facility] ER L HIP PAIN [id number] 02/26/2017 03:34:00 02/26/2017 04:40:00 DIS Emergency DARIEL TREVIZO MD [facility] ER LEFT LOWER SIDE,HIP LEG PAIN [id number] 11/10/2016 06:55:00 11/10/2016 23:59:59 CLS Outpatient RIVKA PAGE DO [facility] RAD LYMPHADENOPATHY [id number] 10/24/2016 10:48:00 10/24/2016 23:59:59 CLS Outpatient TIN PAGE [facility] RAD THYROMEGALY, LYMPHADENOPATHY [id number] 03/11/2016 14:10:00 03/11/2016 23:59:59 CLS Outpatient RIVKA PAGE DO [facility] RAD MENTAL STATUS CHANGES [id number] 01/22/2016 07:43:00 01/24/2016 10:20:00 DIS Outpatient SARAI FIORE MD [facility] SDC CYSTOCELE [id number] 01/18/2016 05:37:00 01/18/2016 11:49:00 DIS Outpatient SARAI FIORE MD [facility] PREOP CYSTOCELE [id number] 01/02/2016 08:03:00 01/02/2016 09:29:00 DIS Outpatient RIVKA PAGE DO [facility] REHAB L ARM PAIN [id number] 12/18/2015 05:58:00 12/18/2015 10:15:00 DIS Outpatient SARAI FIORE MD [facility] SD OVER ACTIVE BLADDER [id number] 12/14/2015 08:28:00 12/14/2015 09:03:00 DIS Outpatient SARAI FIORE MD [facility] PREOP OVERACTIVE BLADDER [id number] 11/12/2015 09:21:00 11/12/2015 10:51:00 DIS Outpatient RIVKA PAGE DO [facility] REHAB GAIT TRAINING [id number] 11/07/2015 13:03:00 11/07/2015 23:59:59 CLS Outpatient SARAI FIORE MD [facility] RAD MAREK RENAL STONE [id number] 11/01/2015 13:39:00 11/01/2015 23:59:59 CLS Outpatient SARAI FIORE MD [facility] RAD STONES [id number] 04/12/2015 07:23:00 04/12/2015 23:59:59 CLS Outpatient MARÍA MARRERO MD [facility] PREOP GERD [id number] 03/02/2015 08:58:00 04/04/2015 00:01:00 DIS Outpatient SARAI FIORE MD [facility] LAB STONES [id number] 02/20/2015 13:40:00 02/20/2015 23:59:59 CLS Outpatient SARAI FIORE MD [facility] RAD RT URETERAL STONE [id number] 02/03/2015 16:25:00 02/08/2015 11:46:00 DIS Inpatient PAGE RIVKA SETH [facility] SURGICAL AMS,SEPSIS,R URETEROLITH HEMATURIA,UNCONTROLLED DM [id number] 01/04/2015 06:40:00 01/04/2015 09:40:00 DIS Outpatient MARÍA MARRERO MD [facility] GERD [id number] 01/03/2015 06:02:00 01/03/2015 23:59:59 CLS Outpatient MARÍA MARRERO MD [facility] PREOP GERD [id number] 11/30/2014 06:46:00 11/30/2014 09:45:00 DIS Outpatient MARÍA MARRERO MD [facility] ESOPHAGEAL STRICTURE [id number] 11/29/2014 05:45:00 11/29/2014 23:59:59 CLS Outpatient MARÍA MARRERO MD [facility] PREOP ESOPHAGEAL STRICTURE [id number] 11/23/2014 13:17:00 11/23/2014 18:12:00 DIS Emergency SOFY AVINA APRN [facility] ER POSS FB [id number] 03/18/2013 10:30:00 03/18/2013 21:50:00 DIS Outpatient RICK STAHL MD [facility] POST MENOPAUSAL BLEEDING;INTRAUTERINE MASS [id number] 03/14/2013 09:22:00 03/14/2013 23:59:59 CLS Outpatient RICK STAHL MD [facility] PREOP POST MENOPAUSAL BLEEDING; INTRAUTERINE MASS [id number] 08/03/2012 09:37:00 Document Registration [id number] 04/23/2011 21:03:00 Document Registration [id number] 03/04/2011 05:57:00 Document Registration [id number] 08/07/2009 13:04:00 Document Registration
--- NOTE | 2017-08-05 14:50 | Occupational Therapy Eval ---
OT Evaluation-General/PLF Medical Diagnosis Admission Date Aug 05, 2017 at 12:11 Medical Diagnosis: multiple falls, UTI Onset Date: Aug 01, 2017 Therapy Diagnosis Therapy Diagnosis: decr activity tolerance, weakness Height/Weight Height (Feet): 5 Height (Inches): 3.00 Weight (Pounds): 131 Weight (Ounces): 0.0 Referral Physician: Loulou Referral Reason: Evaluation/Treatment Medical History Pertinent Medical History: Arthritis, DM, GERD, Neuropathy, Parkinson's Additional Medical History L5-S1 radiculopathy, muscle wasting in legs. Anxiety, depression Current History Pt was dragging a cart with laundry to laundromat and fell backwards. She usually walks with a walker but didn't have it with her. She said that she has lost a total of 80 pounds "on purpose" Reviewed History: Yes Social History Home: Apartment ([facility] in [place]) Current Living Status: Alone Entry Into Home: Level Entry ADL-Prior Level of Function ADL PLOF Comments Pt reported that she has been able to manage her basic self care needs but has been falling a lot lately, especially backwards. 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 OT Current Status Subjective Pt seen in room, up in bed, agreeable to OT. She reported having a headache, rating it about 2/10 Appearance Alert, cooperative Mental Status/Objective Attachments: Saline Lock Current Dentures/Partials: Yes Upper Extremity ROM Grossly WFL bilat Upper Extremity Strength Grossly 4/5 bilat ADL-Treatment ADL-Current Pt reported that she was nauseated this morning but thought it was related to constipation, which has been resolved. She felt good enough to sit EOB but had to stop part of the way getting up due to dizziness. Per acute care PT eval, she has been transferring and walking with CGA, FWW Functional [place] Measure 0=Not Assessed/NA 4=Minimal Assistance 1=Total Assistance 5=Supervision or Setup 2=Maximal Assistance 6=Modified [place] 3=Moderate Assistance 7=Complete IndependenceIRFPAI Quality Coding Scale 6 Independent with activity with or without an assistive device 5 Patient requires set up or clean up by helper. Patient completes activity by themselves 4 Supervision or touching assist (CGA). [place] provide cues , steadying assist 3 The helper provides less than half the effort to complete the activity 2 The helper provides more than half the effort to complete the activity 1 Dependent. The helper does all the effort to complete an activity 7 Patient refused to complete or attempt activity 9 The patient did not perform the activity before the current illness or injury 88 Not attempted due to Medical conditions or safety concerns Eating (FIM): 6 (Able top open packages and feed herself without difficulty except for recent nausea when she hasn't felt like eating) Eating (QC): 6 Oral Hygiene (QC): 88 (She said that she attempted to put her dentures in and they gagged her, making her vomit) Lower Body Dressing (FIM): 5 (Pt was able to sit EOB, take slipper socks off and put them back on. She stood briefly to adjust hospital gown, with no LOB, SBA) Toileting (FIM): 5 (Per pt report, she is able to get on/off regular toilet, using grab bars, and manage her own clothing and hygiene. Nursing just walks with her to and from the bathroom, for supervision) Toileting Hygiene (QC): 4 (Per pt report, she is able to get on/off regular toilet, using grab bars, and manage her own clothing and hygiene. Nursing just walks with her to and from the bathroom, for supervision) Toilet/Commode Transfer (FIM): 5 (Per patient report, she is able to get on/ off tall toilet, using grab bar and FWW, with supervision. Nursing just walks her to and from the bathroom) Toilet Transfer (QC): 4 (Per patient report, she is able to get on/off tall toilet, using grab bar and FWW, with supervision. Nursing just walks her to and from the bathroom) Other Treatments Pt sat EOB and did 10 reps bilat UE exercise that works on elbow extension, as needed to help with getting up and down and walker use. She attempted a bilat UE ex that worked on shoulder flex but said that it made her nauseous so she stopped it. She needed just a little hlep to come to sitting EOB and was able to sidestep a couple feet towards the head of the bed and get herself back to supine or lying on her side, without help. Pt left up in bed, 4 rails up, all needs met. Education OT Patient Education: Exercise program, Purpose of tx/functional activities, Rehab process, Transfer techniques Teaching Recipient: Patient Teaching Methods: Discussion Response to Teaching: Verbalize Understanding, Return Demonstration OT Roll Builder Goals [facility] Goals Time Frame: Aug 12, 2017 Eating (FIM): 6 Eating (QC): 6 Groomin Oral Hygiene (QC): 6 Bathing(FIM): 5 Upper Body Dressing(FIM): 6 Lower Body Dressing(FIM): 6 Toileting(FIM): 6 Toileting Hygiene (QC): 6 Toilet/Commode Transfer(FIM): 6 Toilet/Commode Transfer (QC): 6 Shower Transfer(FIM): 5 Additional Goals: 2-Verbalize Understanding, 3-ImproveStrength/Favian 1=Demonstrate adherence to instructed precautions during ADL tasks. 2=Patient will verbalize/demonstrate understanding of assistive devices/ modifications for ADL. 3=Patient will improve strength/tolerance for activity to enable patient to perform ADL's. OT Education/Plan Problem List/Assessment Assessment: Decreased Activ Tolerance, Decreased UE Strength, Dependent Transfers Pt would benefit from skilled OT to increase her independence in basic self care to allow her to safely return to her home and to decrease caregiver burden. Discharge Recommendations Plan/Recommendations: Continue POC Treatment Plan/Plan of Care Treatment,Training & Education: Yes Patient would benefit from OT for education, treatment and training to promote independence in ADL's, mobility, safety and/or upper extremity function for ADL' s. Plan of Care: ADL Retraining, Functional Mobility, UE Funct Exercise/Act Treatment Duration: Aug 12, 2017 Frequency: 5 times per week Estimated Hrs Per Day: .5 hour per day (.25 to .5) Agreement: Yes Rehab Potential: Good Time/GCodes Start Time: 14:20 Stop Time: 14:40 Total Time Billed (hr/min): 20 Billed Treatment Time visit, 15 minutes evaluation low intensity, 5 minutes exercise CHAPINCITO LI OT Aug 05, 2017 14:50
[2017-08-05] MEDS: ACETAMINOPHEN 500 MG TAB (TYLENOL) PO PRN ×2 (15:04→22:06)
--- NOTE | 2017-08-05 16:30 | Physical Therapy Evaluation ---
PT Evaluation-General Medical Diagnosis Admission Date Aug 05, 2017 at 12:11 Medical Diagnosis: multiple falls, UTI Onset Date: Aug 01, 2017 Therapy Diagnosis Therapy Diagnosis: impaired mobility, endurance, strength Height/Weight Height (Feet): 5 Height (Inches): 3.00 Weight (Pounds): 131 Weight (Ounces): 0.0 Precautions Precautions/Isolations: Fall Prevention, Standard Precautions Weight Bear Status Right Lower Extremity: Right Weight Bearing/Tolerated Left Lower Extremity: Left Weight Bearing/Tolerated Referral Physician: Camryn Jamil DO Reason for Referral: Evaluation/Treatment Medical History Pertinent Medical History: Arthritis, DM, GERD, Neuropathy, Parkinson's Additional Medical History Anxiety, depression Surgical history: Bladder surgery, hysterectomy, tonsillectomy Current History Pt presented in ER after fall in home backwards and hit her head. Reviewed History: Yes Social History [facility] [place] Current Living Status: Alone Entry Into Home: Level Entry PT Steps Into Home: 0 PT Steps Inside Home: 0 Prior/Core FIM Prior Level of Function Functional [place] Measure 0=Not Assessed/NA 4=Minimal Assistance 1=Total Assistance 5=Supervision or Setup 2=Maximal Assistance 6=Modified [place] 3=Moderate Assistance 7=Complete [place] Bed Mobility: 7 Transfers (B,C,W/C) (FIM): 7 Gait: 6 Locomotion: 6 Pt used FWW to travel throughout the home. PT Evaluation-Current Subjective Pt is laying in bed in room pre eval and c/o nausea. Pt agrees to PT. Pain Numeric Pain Scale: 0-No Pain Pt/Family Goals [place] at home Objective Patient Orientation: Person, Place, Situation Attachments: SCD's ROM/Strength ROM Lower Extremities Grossly WNL, but slight tightness in hip flexion, hip IR, knee flexion, and ankle DF bilaterally. Strenght Lower Extremities Grossly 4/5 bilaterally, ankle DF 4/5 on R and 5/5 on L. Neuromuscular (Tone, Coordination, Reflexes) NT Sensory Vision: Functional Hearing: Functional Sensation Right Lower Extremit: Intact Sensation Left Lower Extremity: Intact Transfers Functional [place] Measure 0=Not Assessed/NA 4=Minimal Assistance 1=Total Assistance 5=Supervision or Setup 2=Maximal Assistance 6=Modified [place] 3=Moderate Assistance 7=Complete [place] Transfers (B, C, W/C) (FIM): 5 Scootin Rollin Supine to/from Sit: 6 Sit to/from Stand: 5 Sit to Lying (QC): 6 Lying to Sitting/Side of Bed(Q: 6 Sit to Stand (QC): 4 Chair/Qhf-rb-Kopta Xfer(QC): 4 Pt requires bed rails and FWW to assist with transfers. Patient performs bed mobility with mod I, and transfers with SBA. Gait Does the Patient Walk?: Yes Mode of Locomotion: Walk Anticipated Mode of Locomotion: Walk Gait (FIM): 4 Distance: 150', 50' Walk 50 ft with 2 Turns(QC): 4 Walk 150 ft (QC): 4 Gait Level of Assist: 4 Gait Persons Needed: 1 Gait Assistive Device: FWW Comments/Gait Description Pt required one standing and one sitting break during walk due to nausea and weakness. Patient can ambulate 150' with a rolling walker with CGA, she fatigues quickly and may need a standing or sitting rest break. Wheelchair Training Does the Pt Use a Wheelchair?: No Balance Sitting Static: Normal Sitting Dynamic: Normal Standing Static: Good Standing Dynamic: Good Treatment Pt performed bed mobility, PROM, strength and sensation testing, functional activity, and gait training. Assessment/Needs Pt is mod I with bed mobility and SBA transfers with use of bed rails and FWW. Pt c/o nausea and dizziness while in bed, and c/o nausea after walking 50 feet. Pt required standing break for nausea to subside. Pt required sitting break after walking 150 feet due to feeling tired. Pt has gross weakness demetrius. Pt will benefit from formal PT in order to address the impairments mentioned. Rehab Potential: Fair PT Short Term Goals Short Term Goals Gait Distance Comment: 150 feet PT Gis Analyst Goals Skilled Nursing Goals PT Skilled Nursing Goals Time Frame: Aug 12, 2017 Transfers (B,C,W/C) (FIM): 6 Sit to Lying (QC): 6 Lying-Sitting on Side/Bed(QC): 6 Sit to Stand (QC): 6 Rollin Chair/Exa-jp-Hzput Xfer(QC): 6 Gait (FIM): 5 Distance: 200' Walk 50ft with 2 Turns (QC): 4 Walk 150 ft (QC): 4 Gait Level of Assist: 5 Gait Assistive Device: FWW PT Plan Problem List Problem List: Activity Tolerance, Functional Strength, Safety, Balance, Gait, Transfer, ROM Treatment/Plan Treatment Plan: Continue Plan of Care Treatment Plan: Bed Mobility, Education, Functional Activity Favian, Functional Strength, Gait, Safety, Therapeutic Exercise, Transfers Treatment Duration: Aug 12, 2017 Frequency: 6 times per week Estimated Hrs Per Day: .25 hour per day (15-30') Patient and/or Family Agrees t: Yes Safety Risks/Education Patient Education: Gait Training, Transfer Techniques, Correct Positioning, Safety Issues Teaching Recipient: Patient Teaching Methods: Demonstration, Discussion Response to Teaching: Reinforcement Needed Discharge Recommendations Plan Pt will perform bed mobility and functional activity, strength and ROM exercises , and gait training in order to promote independence at home. Therapy D/C Recommendations: Home w/ Family Support Equpiment Recommendations-D/C: Front Wheeled Walker Time/GCodes Time In: 1550 Time Out: 1620 Total Billed Treatment Time: 30 Total Billed Treatment 1 visit 15 min EVM 15' GT STAN GOODSON PT Aug 05, 2017 16:30
[2017-08-05] MEDS: metFORMIN 500 MG (GLUCOPHAGE) TAB PO SCH (16:57)
[2017-08-05] MEDS: ONDANSETRON 4 MG/2 ML (SDV) Z0FRAN IVP PRN ×2 (16:57→22:13)
[2017-08-05] MEDS: SINEMET 25/100 (CARBIDOPA/LEVODOPA) TAB PO SCH (16:57)
[2017-08-05 17:14] VITALS: BP 136/86
[2017-08-05] MEDS: POLYETHYLENE GLYCOL 17 GM (MIRALAX) PACK PO SCH (22:04)
[2017-08-05] MEDS: toPIRamate 100 MG (TOPAMAX) TAB PO SCH (22:05)
[2017-08-05] MEDS: OXYBUTYNIN (DITROPAN) 5 MG TAB PO SCH (22:05)
[2017-08-05] MEDS: FLUoxetine HCL 20 MG (PROzac) CAP PO SCH (22:05)
[2017-08-05] MEDS: rOPINIRole 1 MG (REQUIP) TABLET PO SCH (22:05)
[2017-08-05] MEDS: SENNA W/DOCUSATE (SENOKOT S) TABLET PO SCH (22:05)
[2017-08-06] MEDS: ONDANSETRON 4 MG/2 ML (SDV) Z0FRAN IVP PRN ×3 (02:41→16:16)
[2017-08-06 06:00] VITALS: BP 152/79
[2017-08-06] MEDS: SINEMET 25/100 (CARBIDOPA/LEVODOPA) TAB PO SCH ×3 (06:08→16:19)
[2017-08-06] MEDS: metFORMIN 500 MG (GLUCOPHAGE) TAB PO SCH ×2 (06:08→16:19)
[2017-08-06] MEDS: HYDROcodone/APAP 5 MG/325 MG (LORTAB) TAB PO PRN ×3 (06:08→22:18)
[2017-08-06] MEDS: PANTOPRAZOLE 40 MG (PROTONIX) TAB PO SCH (06:08)
[2017-08-06] MEDS: D5W IV SCH (08:44)
[2017-08-06] MEDS: GENTAMICIN IV SCH (08:44)
[2017-08-06] MEDS: FLUoxetine HCL 20 MG (PROzac) CAP PO SCH ×2 (08:46→21:10)
[2017-08-06] MEDS: toPIRamate 100 MG (TOPAMAX) TAB PO SCH ×2 (08:46→21:11)
[2017-08-06] MEDS: SENNA W/DOCUSATE (SENOKOT S) TABLET PO SCH ×2 (08:46→21:11)
[2017-08-06] MEDS: ARIPIPRAZOLE 10 MG (ABILIFY) TAB PO SCH (08:46)
--- NOTE | 2017-08-06 09:11 | Progress Note-Hospitalist ---
Progress Note Progress Notes/Assess & Plan Date Seen 08/06/17 Time Seen by Provider: 08:30 Diagonsis/Assessment & Plan Patient doing much better and nausea is improved since scopolamine patch was placed but still requires Zofran IV Patient definitely needs long-term placement at discharge Will check labs in the morning Bowels are moving yesterday 2 No fever, vital signs stable, pleasant, chronically ill, frail, pale Regular rate and rhythm, clear to auscultation bilaterally No edema but muscle wasting noted Impression: 1. Acute headache with history of fall 6 days ago. 2. Pseudomonas urinary tract infection. 3. Severe muscle atrophy suggesting neuromuscular disorder. Needs NH at DC 4. Acute CASTELLANOS 2 days ago following fall with SQ hematoma but CT scan normal 5. DM 6. Mental illness Plan: Complete IV antibiotics Maintain swing bed status Physical therapy and occupational therapy to be continued [facility] at discharge MARY NGUYEN DO Aug 06, 2017 09:11
[2017-08-06] MEDS ORDERED: BISACODYL 10 MG SUPP (DULCOLAX) PR NR (11:01)
[2017-08-06] MEDS ORDERED: FLEET ENEMA ADULT 1 EA BTL PR NR (11:02)
--- NOTE | 2017-08-06 11:02 | Physical Therapy Daily Note ---
PT Daily Note-Current Subjective Patient reports she is feeling a little better and agrees to PT. Pain Numeric Pain Scale: 0-No Pain Location: No Pain Reported Mental Status Patient Orientation: Normal For Age Transfers Functional [place] Measure 0=Not Assessed/NA 4=Minimal Assistance 1=Total Assistance 5=Supervision or Setup 2=Maximal Assistance 6=Modified [place] 3=Moderate Assistance 7=Complete IndependenceIRFPAI Quality Coding Scale 6 Independent with activity with or without an assistive device 5 Patient requires set up or clean up by helper. Patient completes activity by themselves 4 Supervision or touching assist (CGA). [place] provide cues , steadying assist 3 The helper provides less than half the effort to complete the activity 2 The helper provides more than half the effort to complete the activity 1 Dependent. The helper does all the effort to complete an activity 7 Patient refused to complete or attempt activity 9 The patient did not perform the activity before the current illness or injury 88 Not attempted due to Medical conditions or safety concerns Transfers (B, C, W/C) (FIM): 6 Scootin Roll Left to Right (QC): 5 Supine to/from Sit: 6 Sit to/from Stand: 6 Sit to Lying (QC): 5 Sit to Stand (QC): 5 Chair/Krr-xc-Kmahv Xfer(QC): 5 Bed to/from Chair: 6 Weight Bearing Right Lower Extremity: Right Weight Bearing/Tolerated Left Lower Extremity: Left Weight Bearing/Tolerated Gait Training Does the Patient Walk?: Yes Gait (FIM): 5 Distance (FIM): 3=150 ft Distance: 350' Walk 50 ft with 2 Turns(QC): 5 Walk 150 ft (QC): 5 Gait Level of Assist: 5 Gait Assistive Device: FWW safe and functional with FWW Stair Training Stair Training: Handrails/: 1 handrail Stairs (FIM): 1 #of Steps: 3 Stairs: Pattern: Step to Level of Assist: 5 Exercises Seated Therapy Exercises: Ankle pumps, Long arc quads Seated Reps: 25 (2 sets) Assessment Current Status: Excellent Progress Patient had no c/o nausea and is progressing with gross motor skills. PT Short Term Goals Short Term Goals Gait Distance Comment: 150 feet PT Senior Care Goals Radiology Manager Goals PT Radiology Manager Goals Time Frame: Aug 12, 2017 Transfers (B,C,W/C) (FIM): 6 Sit to Lying (QC): 6 Lying-Sitting on Side/Bed(QC): 6 Sit to Stand (QC): 6 Rollin Chair/Gkr-xj-Lynqs Xfer(QC): 6 Gait (FIM): 5 Distance: 200' Walk 50ft with 2 Turns (QC): 4 Walk 150 ft (QC): 4 Gait Level of Assist: 5 Gait Assistive Device: FWW PT Plan Treatment/Plan Treatment Plan: Continue Plan of Care Treatment Plan: Bed Mobility, Education, Functional Activity Favian, Functional Strength, Gait, Safety, Therapeutic Exercise, Transfers Treatment Duration: Aug 12, 2017 Frequency: 6 times per week Estimated Hrs Per Day: .25 hour per day (15-30') Patient and/or Family Agrees t: Yes Time/GCodes Time In: 1010 Time Out: 1033 Total Billed Treatment Time: 23 Total Billed Treatment 1 visit GT 13 min EX 10 min ZECHARIAH FRANKLIN PT Aug 06, 2017 11:02
--- NOTE | 2017-08-06 14:59 | Occupational Ther Daily Note ---
OT Current Status-Daily Note Subjective Pt alert, sitting in recliner. Pt agreed to therapy. No c/o pain at this time. Mental Status/Objective Patient Orientation: Person, Place, Time, Situation Functional [place] Measure 0=Not Assessed/NA 4=Minimal Assistance 1=Total Assistance 5=Supervision or Setup 2=Maximal Assistance 6=Modified [place] 3=Moderate Assistance 7=Complete [place] ADL-Treatment Pt agreed to shower today. Pt ambulated into bathroom and transferred into shower with close SBA using FWW. Pt then completed bathing/rinsing/drying using shower bench, grabbar and hand held shower by self after set up. Pt donned/doffed hospital gown, underwear and socks by self after set up. Pt was able to stand at sink to fix hair with supervision using FWW. Pt was nauseous 1x after shower when sitting in recliner, nrsg notified and sprite zero given to pt. After therapy, pt sitting in recliner with call light/phone in reach. All needs met in room. Functional [place] Measure 0=Not Assessed/NA 4=Minimal Assistance 1=Total Assistance 5=Supervision or Setup 2=Maximal Assistance 6=Modified [place] 3=Moderate Assistance 7=Complete IndependenceIRFPAI Quality Coding Scale 6 Independent with activity with or without an assistive device 5 Patient requires set up or clean up by helper. Patient completes activity by themselves 4 Supervision or touching assist (CGA). [place] provide cues , steadying assist 3 The helper provides less than half the effort to complete the activity 2 The helper provides more than half the effort to complete the activity 1 Dependent. The helper does all the effort to complete an activity 7 Patient refused to complete or attempt activity 9 The patient did not perform the activity before the current illness or injury 88 Not attempted due to Medical conditions or safety concerns Grooming (FIM): 5 Bathing (FIM): 5 Bathing Location: L Arm, R Arm, L Upper Leg, R Upper Leg, L Lower Leg ( including foot), R Lower Leg (including foot), Chest, Abdomen, Buttocks, Perineal Area Upper Body (FIM): 5 Lower Body Dressing (FIM): 5 Shower Transfer(FIM): 5 Education OT Patient Education: Transfer techniques Teaching Recipient: Patient Teaching Methods: Discussion Response to Teaching: Verbalize Understanding, Return Demonstration OT Short Term Goals Short Term Goals 1=Demonstrate adherence to instructed precautions during ADL tasks. 2=Patient will verbalize/demonstrate understanding of assistive devices/ modifications for ADL. 3=Patient will improve strength/tolerance for activity to enable patient to perform ADL's. OT Hospice Care Consultant Goals Senior Living Goals Time Frame: Aug 12, 2017 Eating (FIM): 6 Eating (QC): 6 Groomin Oral Hygiene (QC): 6 Bathing(FIM): 5 Upper Body Dressing(FIM): 6 Lower Body Dressing(FIM): 6 Toileting(FIM): 6 Toileting Hygiene (QC): 6 Toilet/Commode Transfer(FIM): 6 Toilet/Commode Transfer (QC): 6 Shower Transfer(FIM): 5 Additional Goals: 2-Verbalize Understanding, 3-ImproveStrength/Favian 1=Demonstrate adherence to instructed precautions during ADL tasks. 2=Patient will verbalize/demonstrate understanding of assistive devices/ modifications for ADL. 3=Patient will improve strength/tolerance for activity to enable patient to perform ADL's. OT Education/Plan Problem List/Assessment Pt would benefit from skilled OT to increase her independence in basic self care to allow her to safely return to her home and to decrease caregiver burden. Discharge Recommendations Plan/Recommendations: Continue POC Treatment Plan/Plan of Care Patient would benefit from OT for education, treatment and training to promote independence in ADL's, mobility, safety and/or upper extremity function for ADL' s. Plan of Care: ADL Retraining, Functional Mobility, UE Funct Exercise/Act Treatment Duration: Aug 12, 2017 Frequency: 5 times per week Estimated Hrs Per Day: .5 hour per day (.25 to .5) Agreement: Yes Rehab Potential: Fair Time/GCodes Start Time: 11:15 Stop Time: 11:45 Total Time Billed (hr/min): 30 Billed Treatment Time 1 visit-ADL 2 (30 min) JAMES DOUGLAS Aug 06, 2017 14:59
[2017-08-06 17:31] VITALS: BP 136/76
[2017-08-06] MEDS ORDERED: TROUGH ORDER-PHARMACY XX NR (19:00)
[2017-08-06] MEDS: POLYETHYLENE GLYCOL 17 GM (MIRALAX) PACK PO SCH (21:10)
[2017-08-06] MEDS: OXYBUTYNIN (DITROPAN) 5 MG TAB PO SCH (21:11)
[2017-08-06] MEDS: rOPINIRole 1 MG (REQUIP) TABLET PO SCH (21:11)
[2017-08-07] MEDS: HYDROcodone/APAP 5 MG/325 MG (LORTAB) TAB PO PRN ×2 (04:46→15:50)
[2017-08-07 05:06] VITALS: BP 139/67
[2017-08-07] MEDS: PANTOPRAZOLE 40 MG (PROTONIX) TAB PO SCH (06:27)
[2017-08-07] MEDS: metFORMIN 500 MG (GLUCOPHAGE) TAB PO SCH ×2 (06:27→17:25)
[2017-08-07] MEDS: SINEMET 25/100 (CARBIDOPA/LEVODOPA) TAB PO SCH ×3 (06:27→17:25)
[2017-08-07 06:34] LABS: BASOPHILS % (AUTO) 0 % (0-10); EOSINOPHILS # (AUTO) 0.3 10^3/uL (0.0-0.3); EOSINOPHILS % (AUTO) 4 % (0-10); HEMATOCRIT 39 % (35-52); HEMOGLOBIN 13.1 G/DL (11.5-16.0); LYMPHOCYTES # (AUTO) 2.9 X 10^3 (1.0-4.0); LYMPHOCYTES % (AUTO) 31 % (12-44); MEAN CORPUSCULAR HEMOGLOBIN 27 PG (25-34); MEAN CORPUSCULAR HGB CONC 33 G/DL (32-36); MEAN CORPUSCULAR VOLUME 82 FL (80-99); MEAN PLATELET VOLUME 9.4 FL (7.4-10.4); MONOCYTES % (AUTO) 11 % (0-12); NEUTROPHILS % (AUTO) 53 % (42-75); PLATELET COUNT 462 10^3/uL (130-400); RED BLOOD COUNT 4.78 10^6/uL (4.35-5.85); RED CELL DISTRIBUTION WIDTH 14.3 % (10.0-14.5); WHITE BLOOD COUNT 9.3 10^3/uL (4.3-11.0)
[2017-08-07 07:05] LABS: ALBUMIN 3.9 GM/DL (3.2-4.5); BILIRUBIN,TOTAL 0.6 MG/DL (0.1-1.0); CREATININE SERUM 1.04 MG/DL (0.60-1.30); POTASSIUM 4.7 MMOL/L (3.6-5.0); TOTAL PROTEIN 8.2 GM/DL (6.4-8.2)
[2017-08-07] MEDS: toPIRamate 100 MG (TOPAMAX) TAB PO SCH ×2 (09:02→20:14)
[2017-08-07] MEDS: ARIPIPRAZOLE 10 MG (ABILIFY) TAB PO SCH (09:02)
[2017-08-07] MEDS: FLUoxetine HCL 20 MG (PROzac) CAP PO SCH ×2 (09:02→20:15)
[2017-08-07] MEDS: SENNA W/DOCUSATE (SENOKOT S) TABLET PO SCH ×2 (09:02→20:15)
--- NOTE | 2017-08-07 10:56 | Occupational Ther Daily Note ---
OT Current Status-Daily Note Subjective Pt alert, lying in bed. Pt agreed to therapy. No c/o pain at this time. Mental Status/Objective Patient Orientation: Person, Place, Time, Situation Functional [place] Measure 0=Not Assessed/NA 4=Minimal Assistance 1=Total Assistance 5=Supervision or Setup 2=Maximal Assistance 6=Modified [place] 3=Moderate Assistance 7=Complete [place] ADL-Treatment Pt required min A to go from supine to sitting EOB. Pt ambulated from bed to bathroom using FWW with SBA. Pt transferred to toilet using FWW and grabbar with supervision. Pt cleansed self sitting on toilet and manipulated clothing with supervision using grabbar and FWW. Pt then ambulated to sink with FWW and groomed self in standing with supervision. Pt then moved around room with FWW and straightened items up and picked up and transferred them to different locations. After therapy, pt sitting in recliner with call light/phone in reach. All needs met in room. Functional [place] Measure 0=Not Assessed/NA 4=Minimal Assistance 1=Total Assistance 5=Supervision or Setup 2=Maximal Assistance 6=Modified [place] 3=Moderate Assistance 7=Complete IndependenceIRFPAI Quality Coding Scale 6 Independent with activity with or without an assistive device 5 Patient requires set up or clean up by helper. Patient completes activity by themselves 4 Supervision or touching assist (CGA). [place] provide cues , steadying assist 3 The helper provides less than half the effort to complete the activity 2 The helper provides more than half the effort to complete the activity 1 Dependent. The helper does all the effort to complete an activity 7 Patient refused to complete or attempt activity 9 The patient did not perform the activity before the current illness or injury 88 Not attempted due to Medical conditions or safety concerns Grooming (FIM): 5 Oral Hygiene (QC): 4 Toileting (FIM): 5 Toileting Hygiene (QC): 4 Toilet/Commode Transfer (FIM): 5 Toilet Transfer (QC): 4 OT Short Term Goals Short Term Goals 1=Demonstrate adherence to instructed precautions during ADL tasks. 2=Patient will verbalize/demonstrate understanding of assistive devices/ modifications for ADL. 3=Patient will improve strength/tolerance for activity to enable patient to perform ADL's. OT Spray Operator Goals Snf Goals Time Frame: Aug 12, 2017 Eating (FIM): 6 Eating (QC): 6 Groomin Oral Hygiene (QC): 6 Bathing(FIM): 5 Upper Body Dressing(FIM): 6 Lower Body Dressing(FIM): 6 Toileting(FIM): 6 Toileting Hygiene (QC): 6 Toilet/Commode Transfer(FIM): 6 Toilet/Commode Transfer (QC): 6 Shower Transfer(FIM): 5 Additional Goals: 2-Verbalize Understanding, 3-ImproveStrength/Favian 1=Demonstrate adherence to instructed precautions during ADL tasks. 2=Patient will verbalize/demonstrate understanding of assistive devices/ modifications for ADL. 3=Patient will improve strength/tolerance for activity to enable patient to perform ADL's. OT Education/Plan Problem List/Assessment Pt would benefit from skilled OT to increase her independence in basic self care to allow her to safely return to her home and to decrease caregiver burden. Discharge Recommendations Plan/Recommendations: Continue POC Treatment Plan/Plan of Care Patient would benefit from OT for education, treatment and training to promote independence in ADL's, mobility, safety and/or upper extremity function for ADL' s. Plan of Care: ADL Retraining, Functional Mobility, UE Funct Exercise/Act Treatment Duration: Aug 12, 2017 Frequency: 5 times per week Estimated Hrs Per Day: .5 hour per day (.25 to .5) Agreement: Yes Rehab Potential: Fair Time/GCodes Start Time: 10:29 Stop Time: 10:44 Total Time Billed (hr/min): 15 Billed Treatment Time 1 visit-FA 1 (15 min) JAMES DOUGLAS Aug 07, 2017 10:56
--- NOTE | 2017-08-07 11:34 | Progress Note-Hospitalist ---
Progress Note Progress Notes/Assess & Plan Date Seen 08/07/17 Time Seen by Provider: 10:15 Diagonsis/Assessment & Plan Patient doing much better and nausea is improved Patient definitely needs longterm placement at discharge but she wants only HH so that will be explored at [place] to evaluate her capability of this plan Bowels moved yesterday No fever, vital signs stable, pleasant, chronically ill, frail, pale, improved, in chair Regular rate and rhythm, clear to auscultation bilaterally No edema but muscle wasting noted Impression: 1. Acute headache with history of fall 6 days ago requiring mesha and repeat CT was normal 2. Pseudomonas urinary tract infection. 3. Severe muscle atrophy suggesting neuromuscular disorder. Needs NH at [place] but she only wants HH now 4. Acute CASTELLANOS 2 days ago following fall with SQ hematoma but CT scan normal 5. DM 6. Mental illness Plan: Complete IV antibiotics Maintain swing bed status Physical therapy and occupational therapy to be continued custodial placement at discharge but now patient only wants MARY NGUYEN DO Aug 07, 2017 11:34
--- NOTE | 2017-08-07 11:41 | Physical Therapy Daily Note ---
PT Daily Note-Current Subjective Patient agrees to PT. She reports she has been up in her room independently. Pain Numeric Pain Scale: 0-No Pain Location: No Pain Reported Mental Status Patient Orientation: Normal For Age Transfers Functional [place] Measure 0=Not Assessed/NA 4=Minimal Assistance 1=Total Assistance 5=Supervision or Setup 2=Maximal Assistance 6=Modified [place] 3=Moderate Assistance 7=Complete IndependenceIRFPAI Quality Coding Scale 6 Independent with activity with or without an assistive device 5 Patient requires set up or clean up by helper. Patient completes activity by themselves 4 Supervision or touching assist (CGA). [place] provide cues , steadying assist 3 The helper provides less than half the effort to complete the activity 2 The helper provides more than half the effort to complete the activity 1 Dependent. The helper does all the effort to complete an activity 7 Patient refused to complete or attempt activity 9 The patient did not perform the activity before the current illness or injury 88 Not attempted due to Medical conditions or safety concerns Transfers (B, C, W/C) (FIM): 6 Scootin Roll Left to Right (QC): 6 Supine to/from Sit: 6 Sit to/from Stand: 6 Sit to Lying (QC): 6 Sit to Stand (QC): 6 Weight Bearing Right Lower Extremity: Right Weight Bearing/Tolerated Left Lower Extremity: Left Weight Bearing/Tolerated Gait Training Does the Patient Walk?: Yes Gait (FIM): 6 Distance (FIM): 3=150 ft Distance: 500' x 2 Walk 50 ft with 2 Turns(QC): 5 Walk 150 ft (QC): 5 Gait Level of Assist: 6 Gait Assistive Device: FWW safe and functional Exercises Supine Ex: Ankle pumps, Quad Set, Heel Slides, Straight leg raise Supine Reps: 10 Seated Therapy Exercises: Ankle pumps, Long arc quads Seated Reps: 15 Assessment Patient is highly motivated with progress. PT educated patient on paying attention to her body and signs of requiring assistance. Patient voices understanding. PT instructed patient to ambulate PRN in hallway and up in room ad mckenna. RN and HOG WORKER notified. PT Short Term Goals Short Term Goals Gait Distance Comment: 150 feet PT Vegetable Tier Goals Vegetable Tier Goals PT Vegetable Tier Goals Time Frame: Aug 12, 2017 Transfers (B,C,W/C) (FIM): 6 Sit to Lying (QC): 6 Lying-Sitting on Side/Bed(QC): 6 Sit to Stand (QC): 6 Rollin Chair/Fjx-tp-Mevwc Xfer(QC): 6 Gait (FIM): 5 Distance: 200' Walk 50ft with 2 Turns (QC): 4 Walk 150 ft (QC): 4 Gait Level of Assist: 5 Gait Assistive Device: FWW PT Plan Treatment/Plan Treatment Plan: Continue Plan of Care Treatment Plan: Bed Mobility, Education, Functional Activity Favian, Functional Strength, Gait, Safety, Therapeutic Exercise, Transfers Treatment Duration: Aug 12, 2017 Frequency: 6 times per week Estimated Hrs Per Day: .25 hour per day (15-30') Patient and/or Family Agrees t: Yes Time/GCodes Time In: 1110 Time Out: 1133 Total Billed Treatment Time: 23 Total Billed Treatment 1 visit FA 15 min EX 8 min ZECHARIAH FRANKLIN PT Aug 07, 2017 11:41
[2017-08-07 17:00] VITALS: BP 158/80
[2017-08-07] MEDS: OXYBUTYNIN (DITROPAN) 5 MG TAB PO SCH (20:14)
[2017-08-07] MEDS: rOPINIRole 1 MG (REQUIP) TABLET PO SCH (20:14)
[2017-08-07] MEDS: GENTAMICIN IV SCH (20:19)
[2017-08-07] MEDS: D5W IV SCH (20:19)
[2017-08-07] MEDS: POLYETHYLENE GLYCOL 17 GM (MIRALAX) PACK PO SCH (20:27)
[2017-08-08 05:39] VITALS: BP 150/76
[2017-08-08] MEDS: SINEMET 25/100 (CARBIDOPA/LEVODOPA) TAB PO SCH ×3 (06:14→16:39)
[2017-08-08] MEDS: PANTOPRAZOLE 40 MG (PROTONIX) TAB PO SCH (06:14)
[2017-08-08] MEDS: metFORMIN 500 MG (GLUCOPHAGE) TAB PO SCH ×2 (06:15→16:39)
[2017-08-08 08:30] VITALS: BP 128/86
[2017-08-08] MEDS: SENNA W/DOCUSATE (SENOKOT S) TABLET PO SCH ×2 (08:54→20:46)
[2017-08-08] MEDS: toPIRamate 100 MG (TOPAMAX) TAB PO SCH ×2 (08:54→20:46)
[2017-08-08] MEDS: ARIPIPRAZOLE 10 MG (ABILIFY) TAB PO SCH (08:54)
[2017-08-08] MEDS: FLUoxetine HCL 20 MG (PROzac) CAP PO SCH ×2 (08:55→20:46)
[2017-08-08] MEDS ORDERED: SCOPOLAMINE PATCH REMOVAL TP SCH (10:59)
[2017-08-08] MEDS ORDERED: SCOPOLAMINE 1.5 MG (TRANSDERM-SCOP) PATCH TOP SCH (11:00)
[2017-08-08] MEDS: HYDROcodone/APAP 5 MG/325 MG (LORTAB) TAB PO PRN (11:42)
--- NOTE | 2017-08-08 12:49 | Physical Therapy Daily Note ---
PT Daily Note-Current Subjective States that she is doing well. Pain Numeric Pain Scale: 0-No Pain Transfers Functional [place] Measure 0=Not Assessed/NA 4=Minimal Assistance 1=Total Assistance 5=Supervision or Setup 2=Maximal Assistance 6=Modified [place] 3=Moderate Assistance 7=Complete IndependenceIRFPAI Quality Coding Scale 6 Independent with activity with or without an assistive device 5 Patient requires set up or clean up by helper. Patient completes activity by themselves 4 Supervision or touching assist (CGA). [place] provide cues , steadying assist 3 The helper provides less than half the effort to complete the activity 2 The helper provides more than half the effort to complete the activity 1 Dependent. The helper does all the effort to complete an activity 7 Patient refused to complete or attempt activity 9 The patient did not perform the activity before the current illness or injury 88 Not attempted due to Medical conditions or safety concerns Sit to/from Stand: 7 Weight Bearing Right Lower Extremity: Right Weight Bearing/Tolerated Left Lower Extremity: Left Weight Bearing/Tolerated Gait Training Gait (FIM): 6 Distance (FIM): 3=150 ft Distance: 800' Walk 50 ft with 2 Turns(QC): 6 Walk 150 ft (QC): 6 Gait Level of Assist: 6 Gait Assistive Device: FWW Assessment Current Status: Excellent Progress Patient is doing well with gait. PT Short Term Goals Short Term Goals Gait Distance Comment: 150 feet PT Jail Goals Jail Goals PT Histologic Technician Goals Time Frame: Aug 12, 2017 Transfers (B,C,W/C) (FIM): 6 Sit to Lying (QC): 6 Lying-Sitting on Side/Bed(QC): 6 Sit to Stand (QC): 6 Rollin Chair/Hlm-ml-Ugygz Xfer(QC): 6 Gait (FIM): 5 Distance: 200' Walk 50ft with 2 Turns (QC): 4 Walk 150 ft (QC): 4 Gait Level of Assist: 5 Gait Assistive Device: FWW PT Plan Treatment/Plan Treatment Plan: Continue Plan of Care Treatment Plan: Bed Mobility, Education, Functional Activity Favian, Functional Strength, Gait, Safety, Therapeutic Exercise, Transfers Treatment Duration: Aug 12, 2017 Frequency: 6 times per week Estimated Hrs Per Day: .25 hour per day (15-30') Patient and/or Family Agrees t: Yes Time/GCodes Time In: 1230 Time Out: 1245 Total Billed Treatment Time: 15 Total Billed Treatment 1, GT x 15' NISHI CHOI PT Aug 08, 2017 12:49
[2017-08-08 17:56] VITALS: BP 118/75
[2017-08-08] MEDS: POLYETHYLENE GLYCOL 17 GM (MIRALAX) PACK PO SCH (20:46)
[2017-08-08] MEDS: rOPINIRole 1 MG (REQUIP) TABLET PO SCH (20:46)
[2017-08-08] MEDS: OXYBUTYNIN (DITROPAN) 5 MG TAB PO SCH (20:50)
[2017-08-09] MEDS: PANTOPRAZOLE 40 MG (PROTONIX) TAB PO SCH (06:02)
[2017-08-09] MEDS: SINEMET 25/100 (CARBIDOPA/LEVODOPA) TAB PO SCH ×3 (06:02→16:54)
[2017-08-09] MEDS: metFORMIN 500 MG (GLUCOPHAGE) TAB PO SCH ×2 (06:02→16:54)
[2017-08-09] MEDS: HYDROcodone/APAP 5 MG/325 MG (LORTAB) TAB PO PRN (06:03)
[2017-08-09 06:33] VITALS: BP 146/79
[2017-08-09] MEDS: ARIPIPRAZOLE 10 MG (ABILIFY) TAB PO SCH (08:20)
[2017-08-09] MEDS: FLUoxetine HCL 20 MG (PROzac) CAP PO SCH ×2 (08:20→20:45)
[2017-08-09] MEDS: SENNA W/DOCUSATE (SENOKOT S) TABLET PO SCH ×2 (08:20→20:45)
[2017-08-09] MEDS: toPIRamate 100 MG (TOPAMAX) TAB PO SCH ×2 (08:20→20:45)
[2017-08-09] MEDS: D5W IV SCH (08:46)
[2017-08-09] MEDS: GENTAMICIN IV SCH (08:46)
[2017-08-09 14:00] VITALS: BP 131/75
[2017-08-09 17:05] VITALS: BP 127/68
[2017-08-09] MEDS: OXYBUTYNIN (DITROPAN) 5 MG TAB PO SCH (20:45)
[2017-08-09] MEDS: POLYETHYLENE GLYCOL 17 GM (MIRALAX) PACK PO SCH (20:45)
[2017-08-09] MEDS: rOPINIRole 1 MG (REQUIP) TABLET PO SCH (20:45)
[2017-08-10] MEDS: HYDROcodone/APAP 5 MG/325 MG (LORTAB) TAB PO PRN (00:58)
[2017-08-10] MEDS: metFORMIN 500 MG (GLUCOPHAGE) TAB PO SCH (06:04)
[2017-08-10] MEDS: SINEMET 25/100 (CARBIDOPA/LEVODOPA) TAB PO SCH (06:04)
[2017-08-10] MEDS: PANTOPRAZOLE 40 MG (PROTONIX) TAB PO SCH (06:04)
[2017-08-10 06:41] VITALS: BP 110/55
--- NOTE | 2017-08-10 09:07 | D/C HH Face to Face Order ---
D/C Face to Face Orders Instructions for Patient Patient Instructions/FollowUp: Please follow up with Dr Swann in 1-2 weeks. Physician to follow Patient: Dr Swann Discharge Diet for Home: ADA Diet Patient Data-Allergies,Ht & Wt Patient Allergies: Coded Allergies: Nitrofurantoin Macrocrystal (Unverified Allergy, Unknown, RASH, 11/23/14) Penicillins (Unverified Allergy, Unknown, RASH, 11/23/14) mushroom (Verified Allergy, Unknown, RASH, 05/15/17) Height (Feet): 5 Height (Inches): 3.00 Weight (Pounds): 131 Weight (Ounces): 0.0 Home Health Need/Face to Face Date of Face to Face: Aug 10, 2017 Clinical Findings: Generalized weakness and fatigue, Unsteady gait I have seen Pt [id number]: Yes Discharged To: Home Diagnosis/Conditions: uti, multiple falls Problems/Diagnosis/Condition: Patient is Homebound due to: Ryan fall risk due to instabilty Homebound Status Due to the above stated illness, injury or surgical procedure (medical condition or diagnosis) and associated clinical findings, the patient is homebound because of his/her inability to leave home except with aid of a supportive device and/or person AND leaving the home requires a considerable and taxing effort or is medically contraindicated. Pt req the following assistanc: Walker Home Health Nursing Orders Home Health Services Order: Nursing Services, Physical Therapy-Evaluate & Treat Home Health Infusion Therapy Line Type: [place] Lock Site Location: Forearm Therapy Orders Therapy Orders: OT (must have SN or PT order), Physical Therapy, PT to assess for OT Therapy Specific Orders: Eval assistive deivces, Teach enviro modifications/ safety, Gait training, Increase strength/endurance Certify Stmt I certify that this patient is under my care and that I, a nurse practitioner or a physician; a email marketing assistant working with me, had a face to face encounter that - meets the physician face to face encounter requirements with this patient as dated. KENISHA MARTINES MD Aug 10, 2017 09:07
--- NOTE | 2017-08-10 09:12 | Discharge Summary-Hospitalist ---
Diagnosis/Chief Complaint Date of Admission Aug 05, 2017 at 12:11 Date of Discharge Discharge Date: Aug 10, 2017 Admission Diagnosis UTI and debility Discharge Summary Discharge Physical Examination Allergies: Coded Allergies: Nitrofurantoin Macrocrystal (Unverified Allergy, Unknown, RASH, 11/23/14) Penicillins (Unverified Allergy, Unknown, RASH, 11/23/14) mushroom (Verified Allergy, Unknown, RASH, 05/15/17) Vitals & I&Os Vital Signs Date Time Temp Pulse Resp B/P (MAP) Pulse Ox O2 Delivery O2 Flow Rate FiO2 08/10/17 06:41 97.9 91 16 110/55 (73) 97 Room Air Hospital Course Pt is a 66yoCF who presented with multiple falls and debility and was found to have a UTI from pseudomonas. Given her weakness she necessitated PT/OT during her swing bed status along with IV abx due to allergies and sensitivities. She completed Gentamicin on 08/09 and was feeling well on day of discharge and comfortable with plan to DC home with home health as she declined NH placement. Labs (last 24 hrs) Laboratory Tests 08/09/17 10:30: Glucometer 212H 08/09/17 14:16: Glucometer 136H 08/09/17 16:34: Glucometer 132H 08/09/17 20:33: Glucometer 182H 08/10/17 05:55: Glucometer 191H Pending Labs Laboratory Tests 08/10/17 05:55: Glucometer 191 Discharge Home Medications: Active Scripts Active Reported Hydrocodone-Acetamin 5-325 mg (Hydrocodone/Acetaminophen) 1 Each Tablet 1 Tab PO Q6H PRN Aripiprazole 10 Mg Tablet 10 Mg PO DAILY Ropinirole HCl 3 Mg Tablet 3 Mg PO HS Topiramate 100 Mg Tablet 100 Mg PO BID Metformin HCl 500 Mg Tablet 500 Mg PO BID Omeprazole 40 Mg Capsule.dr 40 Mg PO DAILY Oxybutynin Chloride ER (Oxybutynin Chloride) 10 Mg Tab.er.24 10 Mg PO HS Carbidopa-Levodopa 25-100 Tab (Carbidopa/Levodopa) 1 Each Tablet 1 Tab PO TID Prozac (Fluoxetine HCl) 40 Mg Capsule 40 Mg PO BID Instructions to patient/family Please see electronic discharge instructions given to patient. Clinical Quality Measures DVT/VTE Risk/Contraindication: Risk Factor Score Per Nursin Copy Copies To 1: RIVKA PAGE KATELYN M MD Aug 10, 2017 09:12
[2017-08-10] MEDS: ARIPIPRAZOLE 10 MG (ABILIFY) TAB PO SCH (09:30)
[2017-08-10] MEDS: toPIRamate 100 MG (TOPAMAX) TAB PO SCH (09:30)
[2017-08-10] MEDS: FLUoxetine HCL 20 MG (PROzac) CAP PO SCH (09:30)
[2017-08-10] MEDS: SENNA W/DOCUSATE (SENOKOT S) TABLET PO SCH (09:30)
[2017-08-10] MEDS ORDERED: FLEET ENEMA ADULT 1 EA BTL PR NR (09:45)
[2017-08-10 11:15] VITALS: BP 110/55
--- NOTE | 2017-08-10 11:26 | Therapy Team Discharge Summary ---
Therapy Discharge Summary Discharge Recommendations Date of Discharge Therapy D/C Recommendations: Home w/ Family Support Physical Therapy Patient dismissing to home on this date at modified independent F with all gross motor skills. Patient initially required minimal assist with functional mobility and was able to ambulate short distances only. Patient is up modified independently in room and hallway with FWW. Goals addressed and met. Occupational Therapy Decreased Activ Tolerance, Decreased UE Strength, Dependent Transfers PT Correction Goals Windows Security Analyst Goals PT Windows Security Analyst Goals Time Frame: Aug 12, 2017 Transfers (B,C,W/C) (FIM): 6 (met 08/08/17) Sit to Lying (QC): 6 (met 08/08/17) Lying-Sitting on Side/Bed(QC): 6 (met 08/08/17) Sit to Stand (QC): 6 (met 08/08/17) Rollin (met 08/08/17) Chair/Uyx-ok-Vbasj Xfer(QC): 6 (met 08/08/17) Gait (FIM): 5 (met 08/08/17) Distance: 200' Walk 50ft with 2 Turns (QC): 4 (08/08/17) Walk 150 ft (QC): 4 (08/08/17) Gait Level of Assist: 5 (met 08/08/17) Gait Assistive Device: FWW OT Correction Goals Correction Goals Time Frame: Aug 12, 2017 Eating (FIM): 6 Eating (QC): 6 Groomin Oral Hygiene (QC): 6 Bathing(FIM): 5 Upper Body Dressing(FIM): 6 Lower Body Dressing(FIM): 6 Toileting(FIM): 6 Toileting Hygiene (QC): 6 Toilet/Commode Transfer(FIM): 6 Toilet/Commode Transfer (QC): 6 Shower Transfer(FIM): 5 Additional Goals: 2-Verbalize Understanding, 3-ImproveStrength/Favian 1=Demonstrate adherence to instructed precautions during ADL tasks. 2=Patient will verbalize/demonstrate understanding of assistive devices/ modifications for ADL. 3=Patient will improve strength/tolerance for activity to enable patient to perform ADL's. ZECHARIAH FRANKLIN PT Aug 10, 2017 11:26
--- NOTE | 2017-08-11 16:55 | Therapy Team Discharge Summary ---
Therapy Discharge Summary Discharge Recommendations Date of Discharge Aug 10, 2017 at 11:15 Therapy D/C Recommendations: Home w/ Family Support, Occupational Therapy Home Care Occupational Therapy Pt was seen for skilled OT to increase her independence with basic self care to allow her to safely return to her home. On admission she was modified independent with eating, did not use her dentures, did lower body dressing with SBA and toileted with SBA. She was last seen by OT on 08-07-17 and was modified independent with eating, groomed at the sink with supervision and toileted with SBA/supervision. She was discharged on 08-10-17. Unknown if goals met because she wasn't seen day of discharge. Equipment used included FWW, tall toilet, grab bars. may benefit from home health OT. DC OT Decreased Activ Tolerance, Decreased UE Strength, Dependent Transfers PT Skilled Nursing Goals Barber Tool Sharpener Goals PT Barber Tool Sharpener Goals Time Frame: Aug 12, 2017 Transfers (B,C,W/C) (FIM): 6 (met 08/08/17) Sit to Lying (QC): 6 (met 08/08/17) Lying-Sitting on Side/Bed(QC): 6 (met 08/08/17) Sit to Stand (QC): 6 (met 08/08/17) Rollin (met 08/08/17) Chair/Gtp-lk-Bztsp Xfer(QC): 6 (met 08/08/17) Gait (FIM): 5 (met 08/08/17) Distance: 200' Walk 50ft with 2 Turns (QC): 4 (08/08/17) Walk 150 ft (QC): 4 (08/08/17) Gait Level of Assist: 5 (met 08/08/17) Gait Assistive Device: FWW OT Skilled Nursing Goals Barber Tool Sharpener Goals Time Frame: Aug 12, 2017 Eating (FIM): 6 (met) Eating (QC): 6 (met) Groomin Oral Hygiene (QC): 6 Bathing(FIM): 5 Upper Body Dressing(FIM): 6 Lower Body Dressing(FIM): 6 Toileting(FIM): 6 Toileting Hygiene (QC): 6 Toilet/Commode Transfer(FIM): 6 Toilet/Commode Transfer (QC): 6 Shower Transfer(FIM): 5 Additional Goals: 2-Verbalize Understanding, 3-ImproveStrength/Favian 1=Demonstrate adherence to instructed precautions during ADL tasks. 2=Patient will verbalize/demonstrate understanding of assistive devices/ modifications for ADL. 3=Patient will improve strength/tolerance for activity to enable patient to perform ADL's. CHAPINCITO LI OT Aug 11, 2017 16:55
== END 2017-08-10 11:15 | disposition home health service (06) | DRG 690 ==
LOC: 4TH 08-05 12:11
PROVIDERS: ADMIT Internal Medicine; ATTEND Internal Medicine
DX: N39.0 Urinary tract infection, site not specified (principal); R53.1 Weakness; R51 Headache; S00.03XD Contusion of scalp, subsequent encounter; M62.59 Muscle wasting and atrophy, not elsewhere classified, multiple sites; R11.0 Nausea; G20 Parkinson's disease; E11.43 Type 2 diabetes mellitus with diabetic autonomic (poly)neuropathy; K21.9 Gastro-esophageal reflux disease without esophagitis; M19.91 Primary osteoarthritis, unspecified site; F41.9 Anxiety disorder, unspecified; F32.9 Major depressive disorder, single episode, unspecified; R29.6 Repeated falls; M54.17 Radiculopathy, lumbosacral region; B96.5 Pseudomonas (aeruginosa) (mallei) (pseudomallei) as the cause of diseases classified elsewhere; Z79.84 Long term (current) use of oral hypoglycemic drugs; W18.30XD Fall on same level, unspecified, subsequent encounter
CPT/HCPCS: 36415; 80053; 80170; 82962; 85025

== ENCOUNTER 2018-01-28 10:22 | Outpatient (RCR) | payer MEDICARE, OTHER, MEDICAID ==
[~2018-01-28 10:22] MED LIST changes: -METF500T4 PO; +METF500T5 PO
== END 2018-01-28 11:08 | disposition home or self-care (01) ==
PROVIDERS: ATTEND Psychiatry & Neurology Neurology
DX: M62.50 Muscle wasting and atrophy, not elsewhere classified, unspecified site (principal)

== ENCOUNTER 2018-03-16 20:20 | Outpatient (RCR) | payer MEDICARE, OTHER, MEDICAID ==
[2018-03-12 07:20] VITALS: BP 130/65
[2018-03-12] MEDS: CEFEPIME 1 GM/NS 50 ML IV SCH ×4 (07:45→17:03)
[2018-03-12 17:35] VITALS: BP 136/70
[2018-03-13] MEDS: CEFEPIME 1 GM/NS 50 ML IV SCH ×4 (08:37→20:48)
[2018-03-13] MEDS: CATHETER FLUSH 10 ML SYR IV PRN (08:37)
[2018-03-13 08:40] VITALS: BP 137/65
[2018-03-13 21:53] VITALS: BP 121/66
[2018-03-14] MEDS: CEFEPIME 1 GM/NS 50 ML IV SCH ×6 (07:47→20:09)
[2018-03-14] MEDS: CATHETER FLUSH 10 ML SYR IV PRN ×2 (07:47→20:09)
[2018-03-14 08:15] VITALS: BP 132/65
[2018-03-14 20:00] VITALS: BP 143/68
[2018-03-15] MEDS: CEFEPIME 1 GM/NS 50 ML IV SCH ×2 (08:05)
[2018-03-15] MEDS: CATHETER FLUSH 10 ML SYR IV PRN ×3 (08:05→20:16)
[2018-03-15 08:30] VITALS: BP 133/62
[2018-03-15 21:25] VITALS: BP 156/73
[~2018-03-16] VITALS: Ht 160 cm; Wt 67.1 kg
[2018-03-16] MEDS: CATHETER FLUSH 10 ML SYR IV PRN ×3 (08:17→20:15)
[2018-03-16] MEDS: CEFEPIME 1 GM/NS 50 ML IV SCH ×4 (08:18→20:20)
[2018-03-16 08:47] VITALS: BP 135/72
[~2018-03-16 20:20] MED LIST changes: +METF-397 PO; -METF500T5 PO; -ROPI3TAB2 PO; +ROPI3TAB4 PO
[2018-03-16 20:55] VITALS: BP 156/73
== END 2018-04-04 | disposition home or self-care (01) ==
LOC: 4TH RCR 20:20
PROVIDERS: ATTEND Internal Medicine
DX: N39.0 Urinary tract infection, site not specified (principal)
CPT/HCPCS: 76937; 96365

== ENCOUNTER 2018-04-23 18:03 | Outpatient (RCR) | payer MEDICARE, OTHER, MEDICAID | END 2018-04-28 | disposition home or self-care (01) | LOC: CR3 18:03 | PROVIDERS: ATTEND Internal Medicine | DX: Z29.8 Encounter for other specified prophylactic measures (principal) ==

== ENCOUNTER 2018-06-11 15:13 | Emergency (ER) | payer MEDICARE, OTHER, MEDICAID ==
[~2018-06-11] VITALS: Ht 160 cm; Wt 72.6 kg
--- NOTE | 2018-06-11 15:28 | ED Fall/Injury ---
General Stated Complaint: FALL Source: patient, EMS Exam Limitations: no limitations History of Present Illness Date Seen by Provider: Jun 11, 2018 Time Seen by Provider: 15:15 Initial Comments Patient presents to ER by EMS with chief complaint she was at the [facility] and tripped over a cardboard box was left out in the middle the floor landing on her left shoulder against the cardboard box cushioning some of her blood. She has an abrasion on her left neck and a lot of pain in her left shoulder anteriorly per EMS. She has reduced range of motion secondary to pain. She is not anything for pain today. She does have diabetes had a blood sugar 187 per EMS on the scene and 97 this morning when she got up fasting. Patient denies striking her head or losing consciousness. Patient denies use of blood thinners. Allergies and Home Medications Allergies Coded Allergies: Nitrofurantoin Macrocrystal (Unverified Allergy, Unknown, RASH, 11/23/14) Penicillins (Unverified Allergy, Unknown, RASH, pt has received Ceftriaxone & Cefazolin w/o issue, 03/12/18) mushroom (Verified Allergy, Unknown, RASH, 05/15/17) egg (Unverified Adverse Reaction, Unknown, 03/12/18) Home Medications Aripiprazole 10 Mg Tablet, 10 MG PO DAILY, (Reported) Carbidopa/Levodopa 1 Each Tablet, 1 TAB PO TID, (Reported) Fluoxetine HCl 40 Mg Capsule, 40 MG PO BID, (Reported) Hydrocodone/Acetaminophen 1 Each Tablet, 1 TAB PO Q6H PRN for PAIN-MODERATE, ( Reported) Metformin HCl 500 Mg Tablet, 500 MG PO BID, (Reported) Omeprazole 40 Mg Capsule.dr, 40 MG PO DAILY, (Reported) Ondansetron 4 Mg Tab.rapdis, 4 MG PO Q6H PRN for NAUSEA/VOMITING Prescribed by: THADDEUS LEACH on 06/11/18 1713 Oxybutynin Chloride 10 Mg Tab.er.24, 10 MG PO HS, (Reported) Ropinirole HCl 3 Mg Tablet, 3 MG PO HS, (Reported) Topiramate 100 Mg Tablet, 100 MG PO BID, (Reported) Patient Home Medication List Home Medication List Reviewed: Yes Review of Systems Review of Systems Constitutional: No chills, No diaphoresis, No dizziness, No fever Eyes: Denies Blindness, Denies Blurred Vision Ears, Nose, Mouth, Throat: denies ear pain, denies ear discharge Respiratory: No cough, No short of breath Cardiovascular: No chest pain, No edema, No palpitations Gastrointestinal: No abdominal pain, No constipation, No diarrhea, No nausea Genitourinary: No discharge, No dysuria Past Ienxvgy-Xfszhy-Kzysuo Hx Patient Social History Alcohol Use: Denies Use Recreational Drug Use: No Smoking Status: Smoker Current Status [employer] 2nd Hand Smoke Exposure: No Recent Hopitalizations: No Immunizations Up To Date Tetanus Booster (TDap): Unknown PED Vaccines UTD: No Seasonal Allergies Seasonal Allergies: Yes Past Medical History Surgeries: Yes Bladder Surgery, Hysterectomy, Tonsillectomy Respiratory: No Cardiac: No Neurological: Yes (l5-s1 radiculopathy, MUSCLE WASTING IN LEGS) Parkinson's Disease Reproductive Disorders: No Genitourinary: Yes Kidney Stones Gastrointestinal: Yes Gastroesophageal Reflux Musculoskeletal: Yes Arthritis Endocrine: Yes Diabetes, Non-Insulin dep HEENT: No Cancer: No Psychosocial: Yes Anxiety, Depression Integumentary: No Blood Disorders: No Adverse Reaction/Blood Tranf: No Family Medical History Patient reports no known family medical history. No Pertinent Family Hx Physical Exam Vital Signs Vital Signs - First Documented 06/11/18 15:13 Temp 98.0 Pulse 63 Resp 16 B/P (MAP) 173/87 (115) Pulse Ox 100 O2 Delivery Room Air Capillary Refill : Height, Weight, BMI Height: 5'3.00" Weight: 148lbs. 0.0oz. 67.127963so; 23.2 BMI Method:Stated General Appearance: WD/WN, mild distress HEENT: PERRL/EOMI, normal ENT inspection, TMs normal, pharynx normal, other ( atraumatic head with nontender neck and no evidence of shankar sign, raccoon eyes or hemotympanum.) Neck: non-tender, full range of motion, supple, normal inspection Cardiovascular: normal peripheral pulses, regular rate, rhythm, no edema Respiratory: chest non-tender, lungs clear, normal breath sounds, no respiratory distress, no accessory muscle use Peripheral Pulses: 2+ Radial Pulses (R), 2+ Radial Pulses (L) Gastrointestinal: non tender, soft Extremities: other (left shoulder has tenderness to palpation over the greater trochanter with limited range of motion secondary to pain. Patient is splinting it against the body) Neurologic/Psychiatric: no motor/sensory deficits, alert, oriented x 3 Skin: normal color, warm/dry Hannah Coma Score Best Eye Response: (4) Open Spontaneously Best Verbal Response: (5) Oriented Best Motor Response: (6) Obeys Commands Pope Total: 15 Progress/Results/Core Measures Results/Orders My Orders Orders - THADDEUS LEACH Ketorolac Injection (Toradol Injection) (06/11/18 15:30) Shoulder, Left, 3 Views (06/11/18 15:19) Humerus, Left, 2 Views (06/11/18 15:19) Medications Given in ED Current Medications Medications Dose Ordered Sig/Matt Route Start Time Stop Time Status Last Admin Dose Admin Ketorolac Tromethamine 30 mg ONCE ONCE IM 06/11/18 15:30 06/11/18 15:31 DC 06/11/18 15:36 30 MG Vital Signs/I&O 06/11/18 06/11/18 15:13 17:52 Temp 98.0 98.0 Pulse 63 63 Resp 16 16 B/P (MAP) 173/87 (115) 173/87 (115) Pulse Ox 100 100 O2 Delivery Room Air Progress Progress Note : Time: 16:29 Progress Note Plan to put her in a sling and follow-up with Dr. Peña, orthopedics who she is known to in the past. She follows Dr. Swann next week to workup the lucency seen around her fracture and concern for possible pathologic fracture. Diagnostic Imaging Diagonstic Imaging: Xray Plain Films/CT/US/NM/MRI: other (shoulder left) Comments [facility] [place], [place] NAME: TIN FRANCO Bernardino [facility] REC#: [id number] PT STATUS: REG ER : 1950 PHYSICIAN: THADDEUS LEACH MD ADMIT DATE: 06/11/18/ER Draft Date of Exam:06/11/18 HUMERUS, LEFT, 2 VIEWS EXAMINATION: Left humerus at 4:24 PM. INDICATION: Injury, shoulder pain. EXAMINATION: AP and lateral views of the left humerus were obtained. FINDINGS: There is a slightly comminuted essentially nondisplaced fracture involving the greater tuberosity of the humeral head. There may also be a minimal impaction fracture of the surgical neck of the humerus. No other fracture or acute bony abnormality is appreciated. There is mild degenerative disease of the glenohumeral joint and moderately severe degenerative disease of the acromioclavicular joint. The soft tissues are unremarkable. IMPRESSION: 1. There is a slightly comminuted essentially nondisplaced fracture involving the greater tuberosity of the humeral head. There may also be an impaction fracture of the surgical neck of the humerus. If further imaging is desired, then CT would be recommended. 2. There is no acute bony abnormality noted otherwise. Dictated on workstation # [id number] Dict: 06/11/18 1614 Trans: 06/11/181619 HEATHER [id number] Interpreted by: IMANI GAMEZ MD Electronically signed by: [facility] [place], [place] NAME: TIN FRANCO [facility] REC#: [id number] PT STATUS: REG ER : 1950 PHYSICIAN: THADDEUS LEACH MD ADMIT DATE: 06/11/18/ER Draft Date of Exam:06/11/18 SHOULDER, LEFT, 3 VIEWS PATIENT HISTORY: Fall, left shoulder pain. TECHNIQUE: Three views of the left shoulder were performed. COMPARISON: None. FINDINGS: There is a mildly comminuted fracture of the left proximal humerus which involves the greater tuberosity and extends to the humeral neck. There appears to be an associated lucency in this region. The glenohumeral alignment is normal. The acromioclavicular joint is in normal alignment. IMPRESSION: Mildly comminuted fracture of the greater tuberosity of the left humeral head without significant displacement. There is mild associated lucency at the site and a pathologic fracture is not excluded. Dictated on workstation # [id number] Dict: 06/11/18 1615 Trans: 06/11/181620 HEATHER [id number] Interpreted by: PERI ELAM MD Electronically signed by: Reviewed: Reviewed by Ok Departure Impression Primary Impression: Closed left humeral fracture Qualified Codes: S42.255A - Nondisplaced fracture of greater tuberosity of left humerus, initial encounter for closed fracture Additional Impression: Pathologic fracture Qualified Codes: M84.412A - Pathological fracture, left shoulder, initial encounter for fracture Disposition: 01 HOME, SELF-CARE Condition: Stable Departure-Patient Inst. Decision time for Depature: 17:09 Referrals: MARÍA PEÑA WILLIAM J DO (PCP/Family) Primary Care Physician Patient Instructions: Shoulder Fracture (DC) Add. Discharge Instructions: You may use your left hand but do not lift anything more than a pound. Keep your arm in the sling except to bathe. Keep the arm elevated if you're having swelling or tingling. If you lose function in your hand or numbness or discoloration then you should return to the doctor that day. Follow up with Drs. Peña, orthopedics in one week. Thursday call Dr. Swann and discuss getting a clinic appointment to workup your possibility of a pathologic fracture in your left shoulder. Scripts Ondansetron (Ondansetron Odt) 4 Mg Tab.rapdis 4 MG PO Q6H PRN for NAUSEA/VOMITING, #8 TAB 0 Refills Prov: THADDEUS LEACH 06/11/18 Copy Copies To 1: MARÍA PEÑA DO; RIVKA SWANN TITUS J Jun 11, 2018 15:28
[2018-06-11] MEDS ORDERED: KETOROLAC 30 MG/ML VIAL IM ONE (15:30)
--- NOTE | 2018-06-11 16:20 | Diagnostic Imaging Report ---
EXAMINATION: Left humerus at 4:24 PM. INDICATION: Injury, shoulder pain. EXAMINATION: AP and lateral views of the left humerus were obtained. FINDINGS: There is a slightly comminuted essentially nondisplaced fracture involving the greater tuberosity of the humeral head. There may also be a minimal impaction fracture of the surgical neck of the humerus. No other fracture or acute bony abnormality is appreciated. There is mild degenerative disease of the glenohumeral joint and moderately severe degenerative disease of the acromioclavicular joint. The soft tissues are unremarkable. IMPRESSION: 1. There is a slightly comminuted essentially nondisplaced fracture involving the greater tuberosity of the humeral head. There may also be an impaction fracture of the surgical neck of the humerus. If further imaging is desired, then CT would be recommended. 2. There is no acute bony abnormality noted otherwise. Dictated by: Dictated on workstation # [id number]
--- NOTE | 2018-06-11 16:21 | Diagnostic Imaging Report ---
PATIENT HISTORY: Fall, left shoulder pain. TECHNIQUE: Three views of the left shoulder were performed. COMPARISON: None. FINDINGS: There is a mildly comminuted fracture of the left proximal humerus which involves the greater tuberosity and extends to the humeral neck. There appears to be an associated lucency in this region. The glenohumeral alignment is normal. The acromioclavicular joint is in normal alignment. IMPRESSION: Mildly comminuted fracture of the greater tuberosity of the left humeral head without significant displacement. There is mild associated lucency at the site and a pathologic fracture is not excluded. Dictated by: Dictated on workstation # [id number]
[2018-06-11] MEDS ORDERED: ONDA4TAB11 PO (17:13)
[2018-06-11 17:52] VITALS: BP 173/87
== END 2018-06-11 17:52 | disposition home or self-care (01) ==
LOC: EDUNIT# 15:13 → ER 15:13
DX: S42.255A Nondisplaced fracture of greater tuberosity of left humerus, initial encounter for closed fracture (principal); M84.412A Pathological fracture, left shoulder, initial encounter for fracture; G20 Parkinson's disease; K21.9 Gastro-esophageal reflux disease without esophagitis; E11.9 Type 2 diabetes mellitus without complications; F41.9 Anxiety disorder, unspecified; F32.9 Major depressive disorder, single episode, unspecified; R40.2142 Coma scale, eyes open, spontaneous, at arrival to emergency department; R40.2252 Coma scale, best verbal response, oriented, at arrival to emergency department; R40.2362 Coma scale, best motor response, obeys commands, at arrival to emergency department; Z87.442 Personal history of urinary calculi; Z88.0 Allergy status to penicillin; Z88.8 Allergy status to other drugs, medicaments and biological substances; Z79.84 Long term (current) use of oral hypoglycemic drugs; Z90.710 Acquired absence of both cervix and uterus; Z90.89 Acquired absence of other organs; W01.198A Fall on same level from slipping, tripping and stumbling with subsequent striking against other object, initial encounter
CPT/HCPCS: 73030; 73060

== ENCOUNTER 2018-08-31 09:16 | Outpatient (RCR) | payer MEDICARE, OTHER, MEDICAID ==
[~2018-08-31 09:16] MED LIST changes: +ONDA4TAB11 PO
== END 2018-09-06 08:58 | disposition home or self-care (01) ==
PROVIDERS: ATTEND Orthopaedic Surgery
DX: S42.202D Unspecified fracture of upper end of left humerus, subsequent encounter for fracture with routine healing (principal)

== ENCOUNTER 2018-10-19 10:22 | Emergency (ER) | payer MEDICARE, OTHER, MEDICAID ==
[~2018-10-19] VITALS: Ht 162.6 cm; Wt 69.9 kg
[2018-10-19 10:55] LABS: BILIRUBIN,URINE NEGATIVE (NEGATIVE); CLARITY,URINE SLIGHTLY CLOUDY; COLOR,URINE YELLOW; GLUCOSE, URINE (UA) NEGATIVE (NEGATIVE); KETONES,URINE NEGATIVE (NEGATIVE); LEUKOCYTE ESTERASE ,URINE 3+ (NEGATIVE); NITRITE,URINE POSITIVE (NEGATIVE); PH,URINE 6 (5-9); PROTEIN,URINE 2+ (NEGATIVE); UROBILINOGEN,URINE NORMAL (NORMAL)
[2018-10-19 11:07] LABS: BASOPHILS % (AUTO) 1 % (0-10); EOSINOPHILS # (AUTO) 0.2 10^3/uL (0.0-0.3); EOSINOPHILS % (AUTO) 3 % (0-10); HEMATOCRIT 37 % (35-52); HEMOGLOBIN 11.7 G/DL (11.5-16.0); LYMPHOCYTES # (AUTO) 1.9 X 10^3 (1.0-4.0); LYMPHOCYTES % (AUTO) 21 % (12-44); MEAN CORPUSCULAR HEMOGLOBIN 24 PG (25-34); MEAN CORPUSCULAR HGB CONC 32 G/DL (32-36); MEAN CORPUSCULAR VOLUME 77 FL (80-99); MEAN PLATELET VOLUME 9.6 FL (7.4-10.4); MONOCYTES # (AUTO) 0.6 X 10^3 (0.0-1.0); MONOCYTES % (AUTO) 7 % (0-12); NEUTROPHILS # (AUTO) 6.1 X 10^3 (1.8-7.8); NEUTROPHILS % (AUTO) 69 % (42-75); PLATELET COUNT 435 10^3/uL (130-400); RED CELL DISTRIBUTION WIDTH 17.4 % (10.0-14.5); WHITE BLOOD COUNT 8.9 10^3/uL (4.3-11.0)
[2018-10-19 11:10] LABS: RBC,URINE RARE /HPF; WBC,URINE >100 /HPF
[2018-10-19 11:11] LABS: BACTERIA,URINE FEW /HPF
--- NOTE | 2018-10-19 11:14 | ED GU-Female ---
General Chief Complaint: - Urinary Stated Complaint: UTI Nursing Triage Note: pt reports she was contacted by dr. madrigal office today to come to the ed regarding her urine culture she had done last week at [facility] [place] [facility]. pt states she was told there was no oral antibiotics that covered the bacteria that grew out. pt reports flank pain. Nursing Sepsis Screen: No Definite Risk Source: patient Exam Limitations: no limitations History of Present Illness Date Seen by Provider: Oct 19, 2018 Time Seen by Provider: 11:00 Initial Comments 67-year-old female who was sent to the emergency room by Dr. Lawson's office regarding a urine culture that was reported back from [facility] [place] [facility] today. She states that there was no oral antibiotics to cover the bacteria that grew out. Patient has right-sided flank pain and nausea. She is currently not on any antibiotics. Location: right flank Associated Symptoms: nausea/vomiting Allergies and Home Medications Allergies Coded Allergies: Nitrofurantoin Macrocrystal (Unverified Allergy, Unknown, RASH, 11/23/14) Penicillins (Unverified Allergy, Unknown, RASH, pt has received Ceftriaxone & Cefazolin w/o issue, 03/12/18) mushroom (Verified Allergy, Unknown, RASH, 05/15/17) egg (Unverified Adverse Reaction, Unknown, 03/12/18) Home Medications Aripiprazole 10 Mg Tablet, 10 MG PO DAILY, (Reported) Carbidopa/Levodopa 1 Each Tablet, 1 TAB PO TID, (Reported) Fluoxetine HCl 40 Mg Capsule, 40 MG PO BID, (Reported) Hydrocodone/Acetaminophen 1 Each Tablet, 1 TAB PO Q6H PRN for PAIN-MODERATE, ( Reported) Metformin HCl 500 Mg Tablet, 500 MG PO BID, (Reported) Omeprazole 40 Mg Capsule.dr, 40 MG PO DAILY, (Reported) Ondansetron 4 Mg Tab.rapdis, 4 MG PO Q6H PRN for NAUSEA/VOMITING Prescribed by: THADDEUS LEACH on 06/11/18 171 Oxybutynin Chloride 10 Mg Tab.er.24, 10 MG PO HS, (Reported) Ropinirole HCl 3 Mg Tablet, 3 MG PO HS, (Reported) Topiramate 100 Mg Tablet, 100 MG PO BID, (Reported) Patient Home Medication List Home Medication List Reviewed: Yes Review of Systems Review of Systems Constitutional: see HPI; No chills, No fever Gastrointestinal: see HPI, nausea; No vomiting Genitourinary: see HPI, flank pain (right flank) All Other Systemes Reviewed Negative Unless Noted: Yes Past Wyuekps-Bekqmk-Dbbaqg Hx Past Med/Social Hx: Reviewed Nursing Past Med/Soc Hx Patient Social History Alcohol Use: Denies Use Recreational Drug Use: No Smoking Status: Never a Smoker 2nd Hand Smoke Exposure: No Recent Foreign Travel: No Contact w/Someone Who Travel: No Recent Infectious Disease Expo: No Recent Hopitalizations: No Physical Abuse: No Sexual Abuse: No Mistreated: No Fear: No Immunizations Up To Date Tetanus Booster (TDap): Unknown PED Vaccines UTD: No Seasonal Allergies Seasonal Allergies: Yes Past Medical History Surgeries: Yes (l knee) Bladder Surgery, Hysterectomy, Orthopedic, Tonsillectomy Respiratory: No Cardiac: No Neurological: Yes (l5-s1 radiculopathy, MUSCLE WASTING IN LEGS) Parkinson's Disease Reproductive Disorders: No Genitourinary: Yes Kidney Stones Gastrointestinal: Yes Gastroesophageal Reflux Musculoskeletal: Yes Arthritis Endocrine: Yes Diabetes, Non-Insulin dep HEENT: No Cancer: No Psychosocial: Yes Anxiety, Depression Integumentary: No Blood Disorders: No Adverse Reaction/Blood Tranf: No Family Medical History Reviewed Nursing Family Hx Patient reports no known family medical history. No Pertinent Family Hx Physical Exam Vital Signs Vital Signs - First Documented 10/19/18 10/19/18 10:38 13:26 Temp 97.3 Pulse 92 Resp 20 B/P (MAP) 163/93 (116) Pulse Ox 98 O2 Delivery Room Air Capillary Refill : Less Than 3 Seconds Height, Weight, BMI Height: 5'4.00" Weight: 154lbs. 0.0oz. 69.096465fi; 23.2 BMI Method:Stated General Appearance: WD/WN, no apparent distress Cardiovascular: normal peripheral pulses, regular rate, rhythm, no edema, no gallop, no JVD, no murmur Respiratory: chest non-tender, lungs clear, normal breath sounds, no respiratory distress, no accessory muscle use, respiratory distress Gastrointestinal: normal bowel sounds, non tender, soft, no organomegaly, no pulsatile mass, abnormal bowel sounds Extremities: normal capillary refill Neurologic/Psychiatric: alert, normal mood/affect, oriented x 3 Skin: normal color, warm/dry Progress/Results/Core Measures Suspected Sepsis Recent Fever Within 48 Hours: No Infection Criteria Present: Documented Infection New/Unexplained Altered Menta: No Sepsis Screen: No Definite Risk SIRS Temperature:97.3 Pulse: 92 Respiratory Rate: 20 Laboratory Tests 10/19/18 09:32: White Blood Count 8.9 Blood Pressure 163 /93 Mean: 116 Laboratory Tests 10/19/18 09:32: Creatinine 1.15, Platelet Count 435H, Total Bilirubin 0.3 Results/Orders Lab Results Laboratory Tests Test 10/19/18 09:32 10/19/18 10:10 Range/Units White Blood Count 8.9 4.3-11.0 10^3/uL Red Blood Count 4.84 4.35-5.85 10^6/uL Hemoglobin 11.7 11.5-16.0 G/DL Hematocrit 37 35-52 % Mean Corpuscular Volume 77 L 80-99 FL Mean Corpuscular Hemoglobin 24 L 25-34 PG Mean Corpuscular Hemoglobin Concent 32 32-36 G/DL Red Cell Distribution Width 17.4 H 10.0-14.5 % Platelet Count 435 H 130-400 10^3/uL Mean Platelet Volume 9.6 7.4-10.4 FL Neutrophils (%) (Auto) 69 42-75 % Lymphocytes (%) (Auto) 21 12-44 % Monocytes (%) (Auto) 7 0-12 % Eosinophils (%) (Auto) 3 0-10 % Basophils (%) (Auto) 1 0-10 % Neutrophils # (Auto) 6.1 1.8-7.8 X 10^3 Lymphocytes # (Auto) 1.9 1.0-4.0 X 10^3 Monocytes # (Auto) 0.6 0.0-1.0 X 10^3 Eosinophils # (Auto) 0.2 0.0-0.3 10^3/uL Basophils # (Auto) 0.0 0.0-0.1 10^3/uL Sodium Level 138 135-145 MMOL/L Potassium Level 4.0 3.6-5.0 MMOL/L Chloride Level 102 98-107 MMOL/L Carbon Dioxide Level 23 21-32 MMOL/L Anion Gap 13 5-14 MMOL/L Blood Urea Nitrogen 24 H 7-18 MG/DL Creatinine 1.15 0.60-1.30 MG/DL Estimat Glomerular Filtration Rate 47 BUN/Creatinine Ratio 21 Glucose Level 184 H 70-105 MG/DL Calcium Level 10.0 8.5-10.1 MG/DL Corrected Calcium 9.8 8.5-10.1 MG/DL Total Bilirubin 0.3 0.1-1.0 MG/DL Aspartate Amino Transf (AST/SGOT) 39 H 5-34 U/L Alanine Aminotransferase (ALT/SGPT) 15 0-55 U/L Alkaline Phosphatase 89 40-136 U/L Total Protein 8.4 H 6.4-8.2 GM/DL Albumin 4.3 3.2-4.5 GM/DL Urine Color YELLOW Urine Clarity SLIGHTLY CLOUDY Urine pH 6 5-9 Urine Specific Elysian 1.015 L 1.016-1.022 Urine Protein 2+ H NEGATIVE Urine Glucose (UA) NEGATIVE NEGATIVE Urine Ketones NEGATIVE NEGATIVE Urine Nitrite POSITIVE H NEGATIVE Urine Bilirubin NEGATIVE NEGATIVE Urine Urobilinogen NORMAL NORMAL MG/DL Urine Leukocyte Esterase 3+ H NEGATIVE Urine RBC (Auto) 1+ H NEGATIVE Urine RBC RARE /HPF Urine WBC >100 H /HPF Urine Squamous Epithelial Cells 5-10 /HPF Urine Crystals NONE /LPF Urine Bacteria FEW H /HPF Urine Casts NONE /LPF Urine Mucus NEGATIVE /LPF Urine Culture Indicated YES My Orders Orders - LES BASHIR Comprehensive Metabolic Panel (10/19/18 11:02) Ed Iv/Invasive Line Start (10/19/18 11:02) Cbc With Automated Diff (10/19/18 11:02) Ondansetron Injection (Zofran Injectio (10/19/18 11:15) Ns Iv 1000 Ml (Sodium Chloride 0.9%) (10/19/18 11:15) Meropenem (Merrem 500 Mg) (10/19/18 12:30) Vancomycin Injection (Vancomycin Injecti (10/19/18 12:30) Medications Given in ED Current Medications Medications Dose Ordered Sig/Matt Route Start Time Stop Time Status Last Admin Dose Admin Meropenem 500 mg/ Sterile Water 10 ml @ 200 mls/hr ONCE ONCE IV 10/19/18 12:30 10/19/18 12:32 DC 10/19/18 12:50 200 MLS/HR Ondansetron HCl 4 mg ONCE ONCE IVP 10/19/18 11:15 10/19/18 11:16 DC 10/19/18 11:47 4 MG Vital Signs/I&O 4/10/19/18 10/19/18 10:38 13:17 13:26 Temp 97.3 97.3 Pulse 92 81 71 Resp 20 18 18 B/P (MAP) 163/93 (116) 152/77 (102) 147/75 (99) Pulse Ox 98 99 96 O2 Delivery Room Air Capillary Refill : Less Than 3 Seconds Blood Pressure Mean: 116 Progress Note : Time: 12:22 Progress Note I have seen and evaluated the patient. I've informed her of her laboratory findings. Hospital is on diversion at this time. I will be transferring the patient to [facility] for inpatient IV antibiotics. I discussed the case with Dr. Jamil at this time and she agrees to accept the patient. We'll be using meropenem and vancomycin combination. The patient agrees with plan of care. Departure Impression Primary Impression: Urinary tract infection Disposition: [facility] Condition: Stable/Unchanged Transfer Time Spoke to Accepting Phy: 12:[address] Jamil has accepted the patient at this time. Transfer Time: 12:50 Transfer Facility: [facility] Method of Transfer: EMS Departure-Patient Inst. Referrals: MARÍA ANDRADE DO (PCP) Primary Care Physician LES BASHIR Oct 19, 2018 11:14
[2018-10-19] MEDS ORDERED: NS IV 1000 ML 1,000 ML IV SCH (11:15)
[2018-10-19] MEDS ORDERED: ONDANSETRON 4 MG/2 ML (SDV) Z0FRAN IVP ONE (11:15)
[2018-10-19 11:20] LABS: ALBUMIN 4.3 GM/DL (3.2-4.5); BILIRUBIN,TOTAL 0.3 MG/DL (0.1-1.0); CREATININE SERUM 1.15 MG/DL (0.60-1.30); TOTAL PROTEIN 8.4 GM/DL (6.4-8.2)
[2018-10-19] MEDS ORDERED: MEROPENEM 500 MG in WATER (STERILE) FOR INJECTION 10 ML IV ONE (12:30)
[2018-10-19] MEDS ORDERED: VANCOMYCIN INJECTION 1,000 MG in NS (IVPB) 250 ML IV SCH (12:30)
--- NOTE | 2018-10-19 13:01 | NUR ---
[facility] CONTACTED AT THIS TIME FOR PT TRANSPORT.
[2018-10-19 13:17] VITALS: BP 152/77
--- NOTE | 2018-10-19 13:24 | NUR ---
REPORT TO KEYSHAWN NIXON. CARE TURNED OVER AT THIS TIME.
[2018-10-19 13:26] VITALS: BP 147/75
--- NOTE | 2018-10-19 14:49 | NUR ---
EMS IS IN THE ROOM. REPORT GIVEN TO EMS. THE PT IS ASSISTED TO THE COT WITHOUT DIFFICULTY. PT CARE IS GIVEN TO THE EMS CREW.
== END 2018-10-19 14:51 | disposition short-term general hospital (02) ==
LOC: EDUNIT# 10:22 → ER 10:25
DX: N39.0 Urinary tract infection, site not specified (principal); G20 Parkinson's disease; K21.9 Gastro-esophageal reflux disease without esophagitis; E11.9 Type 2 diabetes mellitus without complications; F41.9 Anxiety disorder, unspecified; F32.9 Major depressive disorder, single episode, unspecified; Z87.442 Personal history of urinary calculi; Z88.0 Allergy status to penicillin; Z88.8 Allergy status to other drugs, medicaments and biological substances; Z79.84 Long term (current) use of oral hypoglycemic drugs; Z90.89 Acquired absence of other organs; Z90.710 Acquired absence of both cervix and uterus; Z98.890 Other specified postprocedural states
CPT/HCPCS: 36415; 80053; 81000; 85025; 87077; 87088; 87186

== ENCOUNTER → 2018-10-28 | Outpatient (CLI) | payer MEDICARE, OTHER, MEDICAID ==
[~2018-10-28] MED LIST changes: +BARIUM SUSPENSION 105% (LIQUID POLIBAR PLUS) 240 ML/DOSE PO ONE; +BARIUM SUSPENSION 60% (LIQUID EZ PAQUE) 240 ML DOSE PO ONE
--- NOTE | 2018-10-28 12:04 | Diagnostic Imaging Report ---
Indication: Dysphasia. Patient ingested effervescent crystals as well as thin and thick barium and imaging of the esophagus was performed. Esophagus has a smooth contour. No mass or stricture is identified. No gastroesophageal reflux was demonstrated. There is a moderate sized hiatal hernia. Occasional tertiary contractions within the esophagus are noted consistent with dysmotility. Impression: Moderate size hiatal hernia. Study is otherwise unremarkable. Dictated by: Dictated on workstation # [id number]
== END ==
LOC: RAD 09:54
PROVIDERS: ATTEND Internal Medicine
DX: K44.9 Diaphragmatic hernia without obstruction or gangrene (principal)
CPT/HCPCS: 74220

== ENCOUNTER 2018-11-12 05:34 | Outpatient (CLI) | payer MEDICARE, OTHER, MEDICAID ==
[~2018-11-12] VITALS: Ht 162.6 cm; Wt 69.9 kg
[~2018-11-12 05:34] MED LIST changes: -BARIUM SUSPENSION 105% (LIQUID POLIBAR PLUS) 240 ML/DOSE PO ONE; -BARIUM SUSPENSION 60% (LIQUID EZ PAQUE) 240 ML DOSE PO ONE
[2018-11-12] MEDS ORDERED: CIPR250S3 PO (12:26)
[2018-11-12] MEDS ORDERED: INSU100V6 SQ (12:26)
[2018-11-12] MEDS ORDERED: ROPI4TAB21 PO (12:26)
[2018-11-12] MEDS ORDERED: INSU100I23 SQ (12:26)
== END 2018-11-12 12:53 | disposition home or self-care (01) ==
LOC: PREOP 05:34
PROVIDERS: ATTEND Internal Medicine
DX: Z01.818 Encounter for other preprocedural examination (principal)

== ENCOUNTER 2018-11-19 07:24 | Day surgery (SDC) | payer MEDICARE, OTHER, MEDICAID ==
--- NOTE | 2018-11-11 12:19 | HISTORY AND PHYSICAL ---
DATE OF SERVICE: The patient is a 67-year-old white female referred for screening colonoscopy. She had noted some problems with constipation over the past several months and about a month ago had an episode of vomiting with negative reported ultrasound as well as barium swallow. She has had no subsequent vomiting and denies abdominal pain. There have been no medication changes that she recalls and she has noted no blood in her stool. FAMILY HISTORY: She is not aware of any family history for colon cancer. Mother of ovarian cancer at the age of 72 and father at the age of 86 from head trauma following a fall. PAST MEDICAL HISTORY: Significant for insulin requiring type 2 diabetes mellitus, recent diagnosis of Parkinson's disease, overactive bladder and gastroesophageal reflux as well as depression. PAST SURGICAL HISTORY: She had tonsillectomy and adenoidectomy as a child. In 2011, she had a total abdominal hysterectomy and BSO for reportedly benign causes. She has also had previous bladder suspension surgery. SOCIAL HISTORY: She is retired with no past smoking history and has not had any alcohol consumption for over 6 years. PHYSICAL EXAMINATION: GENERAL: Reveals a white female with appearance of wax in face. He is alert, in no acute distress. HEENT: Unremarkable. No evidence for pallor was noted. No scleral icterus was noted. VITAL SIGNS: Blood pressure 148/66, heart rate 70 and regular. NECK: Revealed no JVD, adenopathy or bruits. CHEST: Clear to auscultation. CARDIOVASCULAR: Revealed a regular rate and rhythm without murmur, S3 or S4. ABDOMEN: Soft, supple without mass, organomegaly or tenderness. No evidence for distention was noted. EXTREMITIES: Reveal no cyanosis, clubbing or edema. ASSESSMENT AND PLAN: The patient was set up for screening colonoscopy initially on 11/12/2018. She did reschedule to later in the month. Prep instructions with a Suprep kit were given and questions were answered. I thank you for the referral of this pleasant lady. Job ID: [id number] DocumentID: [id number] Dictated Date: 11/11/2018 11:43:39 [employer]er Date: 11/11/2018 12:18:18 Dictated By: ELIO MORALES MD [facility]
[~2018-11-19] VITALS: Ht 162.6 cm; Wt 69.9 kg
[~2018-11-19 07:24] MED LIST changes: +INSU100I23 SQ; +ROPI4TAB21 PO
--- OUTSIDE RECORDS SUMMARY | 2018-11-19 07:28 | XMS REPORT | Clinical Summary ---
Author Author [facility] Organization [facility] Address Unknown Phone Unavailable Care Team Providers Care Project Management Analyst Name Role Phone Zeb Swann MD PCP Source Comments Some departments are not documenting in the electronic medical record. If you do not see the information that you expected, contact Release of Information in the Health Information Management department at [phone] for further assistance in locating additional records.[facility] Allergies Comments Active Allergy Reactions Severity Noted Date Can eat them cooked CanNot have flu shot Egg RASH, EDEMA Medium 09/03/2017 Nitrofurantoin RASH Medium 09/03/2017 Macrocrystalline Mushroom RASH, EDEMA Medium 09/03/2017 Penicillins RASH Medium 09/03/2017 Soy RASH, EDEMA Medium 09/03/2017 Medications End Date Status Medication Sig Dispensed Refills Start Date Active HYDROcodone/acetaminophen Take 1 tablet 0 (+) (NORCO) 10/325 mg by mouth tablet every 8 hours as needed for Pain Active FLUOXETINE HCL (PROZAC Take 40 mg by 0 PO) mouth twice daily. Pt states name brand only Active carbidopa/levodopa(+) Dissolve 1 0 (PARCOPA ODT) 25/100 mg tablet by TbDi rapid dissolve mouth three tabletIndications: 6 am, times daily. 12 noon and 6 pm Active metFORMIN (GLUCOPHAGE) Take 500 mg 0 500 mg tabletIndications: by mouth metformin HCL twice daily with meals. Active oxybutynin XL (DITROPAN Take 10 mg by 0 XL) 10 mg tablet mouth daily. Active ARIPiprazole (ABILIFY) 10 Take 10 mg by 0 mg tablet mouth daily. Active rOPINIRole (REQUIP) 3 mg Take 3 mg by 0 tablet mouth daily. Active topiramate (TOPAMAX) 100 Take 100 mg 0 mg tablet by mouth twice daily. Active Problems Problem Noted Date Right foot drop 03/11/2018 Lumbosacral radiculopathy 03/11/2018 Muscle weakness 09/15/2017 Diabetic peripheral neuropathy 09/15/2017 Family History Medical History Relation Name Comments Diabetes Father Cancer Mother Diabetes Mother Hypertension Mother Migraines Mother Stroke Sister Relation Name Status Comments Father Mother Sister Alive Social History Date Tobacco Use Types Packs/Day Years Used Never Smoker Smokeless Tobacco: Never Used Alcohol Use Drinks/Week oz/Week Comments No Sex Assigned at Date Recorded Not on file Industry Job Start Date Occupation Not on file Not on file Not on file Travel End Travel History Travel Start No recent travel history available. Last Filed Vital Signs Time Taken Vital Sign Reading 03/11/2018 10:54 AM CDT Blood Pressure 134/78 03/11/2018 10:54 AM CDT Pulse 85 - Temperature - - Respiratory Rate - - Oxygen Saturation - - Inhaled Oxygen - Concentration 03/11/2018 10:54 AM CDT Weight 68.7 kg (151 lb 6.4 oz) 03/11/2018 10:54 AM CDT Height 161.3 cm (5' 3.5") 03/11/2018 10:54 AM CDT Body Mass Index 26.4 Plan of Treatment Health Maintenance Due Date Last Done Comments HEPATITIS C SCREENING 1950 PHYSICAL (COMPREHENSIVE) 12/07/1958 EXAM DILATED EYE EXAM 12/07/1969 DTAP/TDAP VACCINES (1 - 12/07/1969 Tdap) FOOT EXAM 12/07/1969 HBA1C 12/07/1969 MICROALBUMIN 12/07/1969 BREAST CANCER SCREENING 1991 COLORECTAL CANCER 12/07/2001 SCREENING SHINGLES RECOMBINANT 12/07/2001 VACCINE (1 of 2) OSTEOPOROSIS 12/07/2016 SCREENING/MONITORING PNEUMONIA (PCV13/PPSV23) 12/07/2016 VACCINES (1 of 2 - PCV13) INFLUENZA VACCINE 04/05/2019 Results Not on filefrom Last 3 Months Insurance Type Payer Benefit Subscriber ID Effective Phone Address Plan / Dates Group Medicare MEDICARE MEDICARE xxxxxxxxxx [id number] PART A AND resent B HMO xxxxxxxxx 2017-P FOR LIFE resent Advance Directives Patient has advance care planning documents on file. For more information, please contact: [facility] [address] [facility] [place] [address]
--- OUTSIDE RECORDS SUMMARY | 2018-11-19 07:29 | XMS REPORT ---
Author Author Migration, Doctor Organization [facility] Address Unknown Phone Unavailable Care Team Providers Care Oil Expert Name Role Phone Migration, Doctor Unavailable Unavailable PROBLEMS Type Condition ICD9-CM Code [id number] Code Onset Dates Condition Status SNOMED Code Problem Bipolar affective disorder in remission F31.70 Active 73991563 Problem Bipolar disorder, unspecified F31.9 Active 97328262 Problem Generalized anxiety disorder F41.1 Active 14586627 Problem Bipolar disorder, current episode depressed, moderate F31.32 Active 260274117 ALLERGIES No Information ENCOUNTERS Encounter Location Date Diagnosis [place] [id number] [place] [address] 49482- 9141 November, [place] [id number] [place] [address] 19725- 5497 November, [place] [id number] [place] [address] 09171- 2968 Oct, Bipolar disorder, unspecified F31.9 and Generalized anxiety disorder F41.1 [facility] [facility] [id number] [place] [address] 48124- 2687 Sep, Bipolar disorder, unspecified F31.9 and Generalized anxiety disorder F41.1 [place] [id number] [place] [address] 76525- 7463 Sep, Bipolar disorder, current episode depressed, moderate F31.32 [place] [id number] [place] [address] 93560- 5118 Sep, Generalized anxiety disorder F41.1 and Bipolar disorder, unspecified F31.9 [place] [id number] [place] [address] 40669- 3098 Aug, Bipolar disorder, current episode depressed, moderate F31.32 [place] [id number] [place] [address] [place] [address]- 3[address] Aug, Generalized anxiety disorder F41.1 and Bipolar disorder, unspecified F31.9 [facility] [id number] [place] [address] 88985- 1524 Aug, Bipolar disorder, unspecified F31.9 [facility] [address] [address]- 0[address] Jul, Bipolar disorder, current episode depressed, moderate F31.32 [facility] [id number] [place] [address] 91255- 1411 Jul, Bipolar disorder, unspecified F31.9 [facility] [id number] [place] [address] 69091- 0033 May, Bipolar disorder, unspecified F31.9 and Generalized anxiety disorder F41.1 [place] [id number] [place] [address] 33415- 5186 Apr, Bipolar affective disorder in remission F31.70 and Generalized anxiety disorder F41.1 [facility] [id number] [place] [address] 18911- 3778 Mar, Bipolar disorder, current episode depressed, moderate F31.32 and Generalized anxiety disorder F41.1 [facility] [address] [address]- 7612 Mar, Bipolar disorder, current episode depressed, moderate F31.32 and Generalized anxiety disorder F41.1 [facility] [address] [address]- 4708 Feb, [facility] [id number] [place] [address] 53221- 3173 Jan, Bipolar disorder, current episode depressed, moderate F31.32 and Generalized anxiety disorder F41.1 [facility] [id number] [address]- 0073 Jan, Bipolar disorder, current episode depressed, moderate F31.32 and Generalized anxiety disorder F41.1 [facility] [id number] [address]- 2941 Jan, Bipolar disorder, current episode depressed, moderate F31.32 [facility] [id number] [place] [address] 72858- 4226 Jan, Bipolar disorder, current episode depressed, moderate F31.32 [facility] [id number] [place] [address] 31291- 1261 Jan, Bipolar disorder, current episode depressed, moderate F31.32 and Generalized anxiety disorder F41.1 [facility] [id number] [place] [address] 15175- 1765 Dec, Bipolar disorder, current episode depressed, moderate F31.32 and Generalized anxiety disorder F41.1 [place] [id number] [place] [address] 48206- 6706 November, Bipolar disorder, current episode depressed, moderate F31.32 and Generalized anxiety disorder F41.1 [facility] [id number] [place] [address] 29276- 5226 November, Bipolar disorder, current episode depressed, moderate F31.32 and Generalized anxiety disorder F41.1 [place] [id number] [place] [address] 93833- 0467 Oct, Bipolar disorder, current episode depressed, moderate F31.32 and Generalized anxiety disorder F41.1 [place] [address] [address]- 1140 Oct, Bipolar disorder, current episode depressed, moderate F31.32 and Generalized anxiety disorder F41.1 [facility] [id number] [place] [address] 41196- 3075 Oct, Bipolar disorder, current episode depressed, moderate F31.32 [facility] [id number] [address]- 0831 Oct, Bipolar disorder, current episode depressed, moderate F31.32 and Generalized anxiety disorder F41.1 [place] [address] [address]- 5239 Sep, Bipolar disorder, current episode depressed, moderate F31.32 and Generalized anxiety disorder F41.1 [place] [id number] [place] [address] 95764- 0710 Aug, Bipolar disorder, current episode depressed, moderate F31.32 [place] [id number] [place] [address] 06003- 9421 Aug, Bipolar disorder, current episode depressed, moderate F31.32 and Generalized anxiety disorder F41.1 [place] [id number] [place] [address] 78552- 6036 Jul, Bipolar disorder, current episode depressed, moderate F31.32 and Generalized anxiety disorder F41.1 [place] [id number] [place] [address] 89672- 4818 Jul, Bipolar disorder, current episode depressed, moderate F31.32 and High risk medication use Z79.899 [place] [id number] [place] [address] 30575- 7071 Jul, Generalized anxiety disorder F41.1 and Bipolar disorder, current episode depressed, moderate F31.32 [place] [id number] [place] [address] 72653- 0059 Feb, Bipolar disorder, current episode depressed, moderate F31.32 and Generalized anxiety disorder F41.1 [place] [id number] [place] [address] 52601- 6916 November, Bipolar disorder, current episode depressed, moderate F31.32 and Generalized anxiety disorder F41.1 [place] [id number] [place] [address] 29388- 2005 Aug, Bipolar disorder, current episode depressed, moderate F31.32 and Generalized anxiety disorder F41.1 [place] [address] [address]- 6178 Aug, [facility] [address] [address]7807 Aug, Dysuria R30.0 and Acute cystitis with hematuria N30.01 [facility] [id number] [place] [address] 67216- 6526 Aug, Dysuria R30.0 [facility] [id number] [place] [address] 50397- 1104 Aug, Bipolar disorder, current episode depressed, moderate F31.32 and Generalized anxiety disorder F41.1 [facility] [id number] [place] [address] 92905- 3288 Jul, Bipolar disorder, current episode depressed, moderate F31.32 and Generalized anxiety disorder F41.1 [facility] [id number] [place] [address] 53593- 8119 May, Generalized anxiety disorder F41.1 and Bipolar disorder, current episode depressed, moderate F31.32 [facility] [id number] [place] [address] 29972- 3039 May, Bipolar disorder, current episode depressed, moderate F31.32 and Generalized anxiety disorder F41.1 [facility] [id number] [place] [address] 65032- 7201 Apr, [facility] [id number] [place] [address] 78450- 9041 Apr, [facility] [id number] [place] [address] 21417- 6437 Apr, Bipolar disorder, current episode depressed, moderate F31.32 and Generalized anxiety disorder F41.1 [facility] [id number] [place] [address] 84860- 4689 Apr, [facility] [id number] [place] [address] 67849- 5918 Apr, Adjustment disorder with mixed anxiety and depressed mood F43.23 [facility] [id number] [place] [address] 58663- 7560 Mar, Bipolar disorder, current episode depressed, moderate F31.32 and Generalized anxiety disorder F41.1 [facility] [id number] [place] [address] 33652- 8754 Feb, Bipolar disorder, current episode depressed, moderate F31.32 and Generalized anxiety disorder F41.1 [facility] [id number] [place] [address] 26432- 3535 Feb, [facility] [id number] [place] [address] 88988- 9716 Feb, Bipolar disorder, current episode depressed, moderate F31.32 and Generalized anxiety disorder F41.1 [place] [id number] [place] [address] 08964- 6647 Feb, Generalized anxiety disorder F41.1 and Bipolar disorder, current episode depressed, moderate F31.32 [place] [id number] [place] [address] 90698- 7176 Jan, Bipolar disorder, current episode depressed, moderate F31.32 and Generalized anxiety disorder F41.1 [place] [id number] [place] [address] 33294- 2199 Jan, Bipolar disorder, current episode depressed, moderate F31.32 and Generalized anxiety disorder F41.1 [place] [id number] [place] [address] 02579- 3231 Dec, Generalized anxiety disorder F41.1 and Bipolar disorder, current episode depressed, moderate F31.32 [facility] [id number] [place] [address] 73867- 9978 Dec, Bipolar disorder, current episode depressed, moderate F31.32 and Generalized anxiety disorder F41.1 [facility] [id number] [place] [address] 18126- 7953 November, Bipolar disorder, current episode depressed, moderate F31.32 and Generalized anxiety disorder F41.1 [facility] [id number] [place] [address] 28805- 7157 November, Bipolar disorder, current episode depressed, moderate F31.32 and Generalized anxiety disorder F41.1 [facility] [id number] [place] [address] 07747- 0796 November, Generalized anxiety disorder F41.1 and Bipolar disorder, 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 [facility] [id number] [place] [address] 98621- 2099 Oct, Bipolar disorder, current episode depressed, moderate F31.32 and Generalized anxiety disorder F41.1 [facility] [id number] [place] [address] 87577- 4533 Oct, Bipolar disorder, current episode depressed, moderate F31.32 and Generalized anxiety disorder F41.1 [facility] [id number] [place] [address] 08677- 1854 Oct, Bipolar disorder, current episode depressed, moderate F31.32 and Generalized anxiety disorder F41.1 [facility] [id number] [place] [address] 44448- 8025 Oct, Bipolar disorder, current episode depressed, moderate F31.32 and Generalized anxiety disorder F41.1 [facility] [id number] [place] [address] 88053- 3760 Sep, Bipolar disorder, current episode depressed, moderate F31.32 and Generalized anxiety disorder F41.1 [facility] [id number] [address]- 3461 24 Sep, 2015 Bipolar disorder, current episode depressed, moderate F31.32 and Generalized anxiety disorder F41.1 [facility] [id number] [place] [address] 21178- 4093 10 Sep, 2015 Bipolar disorder, current episode depressed, moderate F31.32 and Generalized anxiety disorder F41.1 [facility] [address] [address]- 8675 07 Sep, 2015 [facility] [id number] [place] [address] 84483- 5298 Sep, Generalized anxiety disorder F41.1 and Bipolar disorder, current episode depressed, severe, without psychotic features F31.4 [facility] [id number] [place] [address] 56536- 4853 Aug, Bipolar disorder, 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 and Generalized anxiety disorder F41.1 [facility] [id number] [place] [address] 38052- 6827 Aug, Bipolar disorder, 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 and Generalized anxiety disorder F41.1 [facility] [id number] [place] [address] 97340- 8370 Jul, Bipolar disorder, 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 and Generalized anxiety disorder F41.1 [facility] [id number] [place] [address] 25350- 7236 Jul, Bipolar disorder, 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 and Generalized anxiety disorder F41.1 [facility] [id number] [place] [address] 72694- 5518 Jun, [facility] [id number] [place] [address] 38958- 4466 Jun, Bipolar disorder, 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 and Generalized anxiety disorder F41.1 [facility] [id number] [place] [address] 08159- 9224 Jun, Bipolar disorder, 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 and Generalized anxiety disorder F41.1 [facility] [id number] [place] [address] 29622- 4486 Jun, Generalized anxiety disorder F41.1 and Bipolar disorder, 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 [facility] [id number] [place] [address] 81364- 6813 May, Generalized anxiety disorder F41.1 and Bipolar disorder, current episode depressed, severe, without psychotic features F31.4 [facility] [id number] [place] [address] 40911- 9579 May, Bipolar disorder, 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 [facility] [id number] [place] [address] 51735- 0205 May, [facility] [id number] [place] [address] 92091- 7730 May, Bipolar disorder, unspecified F31.9 ; Generalized anxiety disorder F41.1 and Insomnia G47.00 [facility] [id number] [place] [address] 14028- 1799 May, Bipolar disorder, current episode depressed, severe, without psychotic features F31.4 and Generalized anxiety disorder F41.1 [facility] [id number] [place] [address] 99094- 9467 May, [facility] [id number] [place] [address] 41115- 2035 Apr, Bipolar disorder, current episode depressed, severe, without psychotic features F31.4 and Generalized anxiety disorder F41.1 [facility] [id number] [place] [address] 22447- 4496 Apr, Bipolar disorder, current episode depressed, severe, without psychotic features F31.4 [facility] [id number] [place] [address] 78912- 2426 Apr, Bipolar disorder, current episode depressed, severe, without psychotic features F31.4 and Generalized anxiety disorder F41.1 [facility] [id number] [place] [address] 13396- 4134 Mar, Bipolar disorder, unspecified 296.80 [facility] [id number] [place] [address] 95101- 7941 Mar, Bipolar disorder, unspecified 296.80 ; Generalized anxiety disorder 300.02 and Depression, major, recurrent 296.30 [facility] [id number] [place] [address] 04249- 5114 Feb, Bipolar disorder, unspecified 296.80 [facility] [address] [facility] [id number] [address]- 1373 Jan, Bipolar disorder, unspecified 296.80 [facility] [address] [address]- 5956 Dec, Bipolar disorder, unspecified 296.80 [facility] [address] [place] [address]- 8756 Dec, Bipolar disorder, unspecified 296.80 ; Major depressive disorder, recurrent episode, unspecified 296.30 and Generalized anxiety disorder 300.02 [facility] [address]- 3420 November, Bipolar disorder, unspecified 296.80 [facility] [address] [address]- 8003 Oct, [facility] [address] [address]- 3881 Oct, [facility] [address] [address]- 8245 Sep, [facility] [address]- 6601 Sep, [facility] [address] [address]- 5363 Jul, [facility] [address] [address]- 2747 Jul, [facility] [address] [address]- 9681 Jul, [facility] [address] [address]- 8247 Jul, [facility] [address] 2175 Jul, [facility] [address] [address]- 9739 Jul, [facility] [place] [facility] [address] [id number] [place] [address]- 0213 Jun, [facility] [place] [facility] [address] [id number] [place] [address]- 0405 Jun, [facility] [place] [facility] [address] [id number] [place] [address]- 3037 May, [facility] [place] [facility] [address] [id number] [place] [address]- 7143 May, [facility] [place] [facility] [address] [id number] [place] [address]- 5340 May, [facility] [place] [facility] [address] [id number] [place] [address]- 3152 May, [facility] [place] [facility] [address] [id number] [place] [address]- 6466 Apr, [facility] [place] [facility] [address] [id number] [place] [address]- 1417 Apr, [facility] [place] [facility] [address] [id number] [place] [address]- 4483 Mar, [facility] [place] [facility] [address] [id number] [place] [address]- 7944 Mar, [facility] [place] [facility] [address] [id number] [place] [address]- 6124 Feb, [facility] [place] [facility] [address] [id number] [place] [address]- 3355 Feb, [facility] [place] [facility] [address] [id number] [place] [address]- 1452 Feb, [facility] [place] [facility] [address] [id number] [place] [address]- 7302 Feb, [facility] [place] [facility] [address] [id number] [place] [address]- 3895 Feb, [facility] [place] [facility] [address] [id number] [place] [address]- 0014 Feb, [facility] [place] [facility] [address] [id number] [place] [address]- 6063 Feb, [facility] [place] [facility] [address] [id number] [place] [address]- 1377 Feb, [facility] [place] [facility] [address] [id number] [place] [address]- 7533 Feb, [facility] [place] [facility] [address] [id number] [place] [address]- 9519 Feb, [facility] [place] [facility] [address] [id number] [place] [address]- 6406 Feb, [facility] [place] [facility] [address] [id number] [place] [address]- 5519 Feb, [facility] [place] [facility] [address] [id number] [place] [address]- 5354 Feb, [facility] [place] [facility] [address] [id number] [place] [address]- 9769 Feb, [facility] [place] [facility] [address] [id number] [place] [address]- 9341 Jan, [facility] [place] [facility] [address] [id number] [place] [address]- 3553 Jan, [facility] [place] [facility] [address] [id number] [place] [address]- 5895 Jan, [facility] [place] [facility] [address] [id number] [place] [address]- 9980 Jan, [facility] [place] [facility] [address] [id number] [place] [address]- 3786 Jan, [facility] [place] [facility] [address] [id number] [place] [address]- 0082 Jan, [facility] [place] [facility] [address] [id number] [place] [address]- 7483 Jan, [facility] [place] [facility] [address] [id number] [place] [address]- 1510 Jan, [facility] [place] [facility] [address] [id number] [place] [address]- 4269 Dec, [facility] [place] [facility] [address] [id number] [place] [address]- 6478 Dec, [facility] [place] [facility] [address] [id number] [place] [address]- 6914 Dec, [facility] [place] [facility] [address] [id number] [place] [address]- 6733 Dec, [facility] [place] [facility] [address] [id number] [place] [address]- 9149 Dec, [facility] [place] [facility] [address] [id number] [place] [address]- 0023 Dec, [facility] [place] [facility] [address] [id number] [place] [address]- 4166 November, [facility] [place] [facility] [address] [id number] [place] [address]- 6062 November, [facility] [place] [facility] [address] [id number] [place] [address]- 0894 November, [facility] [place] [facility] [address] [id number] [place] [address]- 7407 November, [facility] [place] [facility] [address] [id number] [place] [address]- 7704 Oct, [facility] [place] [facility] [address] [id number] [place] [address]- 8033 Oct, [facility] [place] [facility] [address] [id number] [place] [address] Sep, [facility] [place] [facility] [address] [id number] [place] [address] Sep, [facility] [place] [facility] [address] [id number] [id number] Sep, [facility] [place] [facility] [address] [id number] [place] [address] Sep, [facility] [place] [facility] [address] [id number] [place] [address] Sep, [facility] [place] [facility] [address] [id number] [place] [address] Sep, [facility] [place] [facility] [address] [id number] [place] [address] Sep, [facility] [place] [facility] [address] [id number] [place] [address] Sep, [facility] [place] [facility] [address] [id number] [place] [address] Aug, [facility] [place] [facility] [address] [id number] [place] [address] Aug, [facility] [place] [facility] [address] [id number] [place] [address] Aug, [facility] [place] [facility] [address] [id number] [place] [address] Aug, [facility] [place] [facility] [address] [id number] [place] [address] Aug, [facility] [place] [facility] [address] [id number] [place] [address] Aug, [facility] [place] [facility] [address] [id number] [place] [address] Aug, [facility] [place] [facility] [address] [id number] [place] [address] Aug, [facility] [place] [facility] [address] [id number] [place] [address] Jul, [facility] [place] [facility] [address] [id number] [place] [address] Jul, [facility] [place] [facility] [address] [id number] [place] [address] Jul, [facility] [address] [id number] [place] [address] Jul, [facility] [address] [id number] [place] [address] Jul, [facility] [address] [id number] [place] [address] Jul, [facility] [address] [id number] [place] [address] Jul, [facility] [address] [id number] [place] [address] Jul, [facility] [address] [id number] [place] [address] Jun, [facility] [address] [id number] [place] [address] Jun, [facility] [address] [id number] [place] [address] Jun, [facility] [address] [id number] [place] [address] Jun, [facility] [address] [id number] [place] [address] May, [facility] [address] [id number] [place] [address] May, [facility] [address] [id number] [place] [address] May, [facility] [place] [facility] [address] [id number] [place] [address] May, [facility] [address] [id number] [place] [address] May, [facility] [address] [id number] [place] [address] May, [facility] [place] [facility] [address] [id number] [place] [address] May, [facility] [place] [facility] [address] [id number] [place] [address] May, [facility] [place] [facility] [address] [id number] [place] [address] Apr, [facility] [place] [facility] [address] [id number] [place] [address] Apr, [facility] [place] [facility] [address] [id number] [place] [address] Apr, [facility] [place] [facility] [address] [id number] [place] [address] Apr, [facility] [place] [facility] [address] [id number] [place] [address] Apr, [facility] [place] [facility] [address] [id number] [place] [address] Apr, [facility] [place] [facility] [address] [id number] [place] [address] Apr, [facility] [place] [facility] [address] [id number] [place] [address] Apr, [facility] [place] [facility] [address] [id number] [place] [address]689 Apr, [facility] [place] [facility] [address] [id number] [place] [address] Apr, [facility] [place] [facility] [address] [id number] [place] [address]66 Apr, [facility] [place] [facility] [address] [id number] [place] [address] Mar, [facility] [place] [facility] [address] [id number] [place] [address] Feb, [facility] [place] [facility] [address] [id number] [place] [address] Feb, [facility] [address] [id number] [place] [address] Feb, [facility] [address] [id number] [place] [address] Jan, [facility] [address] [id number] [place] [address] Dec, [facility] [address] [id number] [place] [address] 4314 Dec, [facility] [address] [id number] [place] [address] 28[address] Dec, [facility] [address] [id number] [place] [address] November, [facility] [address] [id number] [place] [address]46 November, [facility] [address] [id number] [place] [address] 0480 November, [facility] [address] [id number] [place] [address] Oct, [facility] [address] [id number] [place] [address]34 Oct, [facility] [address] [id number] [place] [address] 7964 Oct, [facility] [address] [id number] [place] [address] Sep, [facility] [address] [id number] [place] [address]- [address] 05 Sep, 2012 [facility] [place] [facility] [address] [facility] [id number] [place] [address] Sep, [facility] [address] [facility] [id number] [place] [address] 8519 Aug, [facility] [place] [facility] [address] [id number] [place] [address]- 6045 Jul, [facility] [place] [facility] [address] [id number] [place] [address] 1857 Jul, [facility] [place] [facility] [address] [id number] [place] [address] Jun, [facility] [place] [facility] [address] [id number] [place] [address]- 9490 Jun, [facility] [place] [facility] [address] [id number] [place] [address]- 0725 May, [facility] [place] [facility] [address] [id number] [place] [address]- 3080 May, [facility] [place] [facility] [address] [id number] [place] [address]- 9964 May, [facility] [place] [facility] [address] [id number] [place] [address]- 1439 May, [facility] [place] [facility] [address] [id number] [place] [address]- [address]441 May, [facility] [place] [facility] [address] [id number] [place] [address]- 3784 May, [facility] [place] [facility] [address] [id number] [place] [address]- [address]262 Apr, [facility] [place] [facility] [address] [id number] [place] [address]- 3785 Feb, [facility] [place] [facility] [address] [id number] [place] [address]- 3459 Dec, [facility] [place] [facility] [address] [id number] [place] [address]- 0939 November, [facility] [place] [facility] [address] [id number] [place] [address]- [address]194 Oct, [facility] [place] [facility] [address] [id number] [place] [address]- 7175 13 Oct, 2011 [facility] [place] [facility] [address] [id number] [place] [address]- 5317 12 Oct, 2011 [facility] [place] [facility] [address] [id number] [place] [address]- [address]288 20 Sep, 2011 [facility] [place] [facility] [address] [facility] [id number] [place] [address]- 1473 14 Sep, 2011 [facility] [place] [facility] [address] [id number] [place] [address]- 8642 15 Aug, 2011 [facility] [place] [facility] [address] [id number] [place] [address]- 7251 Jul, [facility] [place] [facility] [address] [id number] [place] [address]- 5186 Jul, [facility] [place] [facility] [address] [id number] [place] [address]- 2230 Jun, [facility] [place] [facility] [address] [id number] [place] [address]- 3157 Jun, [facility] [place] [facility] [address] [id number] [place] [address]- 4546 May, [facility] [place] [facility] [address] [id number] [place] [address] May, [facility] [place] [facility] [address] [id number] [place] [address]- 8866 27 Apr, 2011 [facility] [place] [facility] [address] [id number] [place] [address]- [address]120 12 Mar, 2011 [facility] [place] [facility] [address] [id number] [place] [address]- 5784 Jan, [facility] [place] [facility] [address] [id number] [place] [address]- 8847 Dec, [facility] [place] [facility] [address] [id number] [place] [address]- 8773 17 Jun, 2010 [facility] [place] [facility] [address] [facility] [address] [id number] [place] [id number] [address] 13 Jun, 2010 [facility] [address] [facility] [address] [id number] [place] [address]- [address] May, [facility] [address] [facility] [address] [id number] [place] [address]- [address]262 10 May, 2010 IMMUNIZATIONS No Known Immunizations SOCIAL HISTORY Never Assessed REASON FOR VISIT EMR-[facility] [place]AN OF CARE VITAL SIGNS MEDICATIONS Unknown Medications RESULTS No Results PROCEDURES No Known procedures INSTRUCTIONS MEDICATIONS ADMINISTERED No Known Medications MEDICAL (GENERAL) HISTORY Type Description Date Medical History parkinsons disease dx 2016-neurologist Dr. Orr Medical History diabetes type II Medical History hx HTN Medical History hx hypercholestorolemia Medical History salmonella Surgical History Kidney Stent 02/2015 Surgical History Bladder prolapse 01/2016 Surgical History hysterectomy Hospitalization History Septecimic/Bladder infection/Kidney Stones/Enlarged Gallbladder 02/2015 Hospitalization History Surgery Hospitalization History hypokalemia, UTI, weakness, and hypovolemia - Hospital Inpatient Discharge 05/19/17 Hospitalization History UTI - Hospital ED [facility] [place] 05/31/17 Hospitalization History UTI 08-06-17
--- OUTSIDE RECORDS SUMMARY | 2018-11-19 07:30 | XMS REPORT ---
Author Author RASHEED CONY [facility] [address] Address [address] [place] [address] Care Team Providers Care Music Adapter Name Role Phone RASHEEDCONY Unavailable PROBLEMS Type Condition ICD9-CM Code [id number] Code Onset Dates Condition Status SNOMED Code Problem Bipolar disorder, unspecified F31.9 Active 40365312 Problem Bipolar affective disorder in remission F31.70 Active 41972108 Problem Bipolar disorder, current episode depressed, moderate F31.32 Active 048597545 Problem Generalized anxiety disorder F41.1 Active 60969834 ALLERGIES Substance Reaction Event Type Date Status Penicillin V Potassium hives Drug Allergy May, Active Macrodantin hives Drug Allergy May, Active Mushrooms hives, upset stomach Non Drug Allergy May, Active Cow milk hives, upset stomach Non Drug Allergy May, Active Goat milk hives, upset stomach Non Drug Allergy May, Active Eggs hives, upset stomach Non Drug Allergy May, Active Soy hives, upset stomach Non Drug Allergy May, Active ENCOUNTERS Encounter Location Date Diagnosis [place] [id number] [address] Aug, [facility] [id number] [place] [address] 30265- 0107 May, Bipolar disorder, unspecified F31.9 and Generalized anxiety disorder F41.1 [facility] [id number] [place] [address] 16134- 5147 Apr, Bipolar affective disorder in remission F31.70 and Generalized anxiety disorder F41.1 [facility] [address] [address] Mar, Bipolar disorder, current episode depressed, moderate F31.32 and Generalized anxiety disorder F41.1 [facility] [address] [facility] [id number] [address] Mar, Bipolar disorder, current episode depressed, moderate F31.32 and Generalized anxiety disorder F41.1 [facility] [address] [facility] [id number] [address] Feb, [facility] [id number] [address] Jan, Bipolar disorder, current episode depressed, moderate F31.32 and Generalized anxiety disorder F41.1 [facility] [id number] [address] Jan, Bipolar disorder, current episode depressed, moderate F31.32 and Generalized anxiety disorder F41.1 [facility] [id number] [address] Jan, Bipolar disorder, current episode depressed, moderate F31.32 [facility] [id number] [address] Jan, Bipolar disorder, current episode depressed, moderate F31.32 [facility] [id number] [address] 4507 Jan, Bipolar disorder, current episode depressed, moderate F31.32 and Generalized anxiety disorder F41.1 [facility] [id number] [address] 6472 Dec, Bipolar disorder, current episode depressed, moderate F31.32 and Generalized anxiety disorder F41.1 [facility] [id number] [address] 8681 November, Bipolar disorder, current episode depressed, moderate F31.32 and Generalized anxiety disorder F41.1 [facility] [id number] [address]- 6587 November, Bipolar disorder, current episode depressed, moderate F31.32 and Generalized anxiety disorder F41.1 [facility] [address] [address] 8[address] Oct, Bipolar disorder, current episode depressed, moderate F31.32 and Generalized anxiety disorder F41.1 [place] [id number] [place] [address] 68226- 0080 Oct, Bipolar disorder, current episode depressed, moderate F31.32 and Generalized anxiety disorder F41.1 [place] [id number] [place] [address] 29712- 0827 Oct, Bipolar disorder, current episode depressed, moderate F31.32 [place] [id number] [place] [address] 29267- 1045 Oct, Bipolar disorder, current episode depressed, moderate F31.32 and Generalized anxiety disorder F41.1 [place] [id number] [place] [address] 05686- 8518 Sep, Bipolar disorder, current episode depressed, moderate F31.32 and Generalized anxiety disorder F41.1 [place] [id number] [place] [address] 59855- 7214 Aug, Bipolar disorder, current episode depressed, moderate F31.32 [place] [id number] [place] [address] 83061- 9122 Aug, Bipolar disorder, current episode depressed, moderate F31.32 and Generalized anxiety disorder F41.1 [place] [id number] [place] [address] 73614- 5606 Jul, Bipolar disorder, current episode depressed, moderate F31.32 and Generalized anxiety disorder F41.1 [place] [id number] [place] [address] 30045- 8632 Jul, Bipolar disorder, current episode depressed, moderate F31.32 and High risk medication use Z79.899 [place] [id number] [place] [address] 61240- 8878 Jul, Generalized anxiety disorder F41.1 and Bipolar disorder, current episode depressed, moderate F31.32 [place] [address] [address]- 5862 Feb, Bipolar disorder, current episode depressed, moderate F31.32 and Generalized anxiety disorder F41.1 [facility] [id number] [place] [address] 46083- 1026 November, Bipolar disorder, current episode depressed, moderate F31.32 and Generalized anxiety disorder F41.1 [facility] [id number] [place] [address] 14483- 3835 Aug, Bipolar disorder, current episode depressed, moderate F31.32 and Generalized anxiety disorder F41.1 [facility] [id number] [place] [address] 23002- 7712 Aug, [facility] [id number] [place] [address] 16777 -9951 Aug, Dysuria R30.0 and Acute cystitis with hematuria N30.01 [facility] [id number] [place] [address] 50335- 0028 Aug, Dysuria R30.0 [facility] [id number] [place] [address] 91399- 0476 Aug, Bipolar disorder, current episode depressed, moderate F31.32 and Generalized anxiety disorder F41.1 [place] [address] [place] [address] 09326- 5895 Jul, Bipolar disorder, current episode depressed, moderate F31.32 and Generalized anxiety disorder F41.1 [facility] [address] [place] [address] 64927- 3323 May, Generalized anxiety disorder F41.1 and Bipolar disorder, current episode depressed, moderate F31.32 [facility] [address] [place] [address] 74519- 5759 May, Bipolar disorder, current episode depressed, moderate F31.32 and Generalized anxiety disorder F41.1 [facility] [id number] [place] [address] 69454- 1722 Apr, [facility] [address] [place] [address] 77770- 1486 Apr, [facility] [id number] [place] [address] 43772- 8705 Apr, Bipolar disorder, current episode depressed, moderate F31.32 and Generalized anxiety disorder F41.1 [place] [id number] [place] [address] 65184- 7466 Apr, [facility] [address] [place] [address] 81280- 8495 Apr, Adjustment disorder with mixed anxiety and depressed mood F43.23 [place] [id number] [place] [address] 10803- 1287 Mar, Bipolar disorder, current episode depressed, moderate F31.32 and Generalized anxiety disorder F41.1 [place] [id number] [place] [address] 58097- 6652 Feb, Bipolar disorder, current episode depressed, moderate F31.32 and Generalized anxiety disorder F41.1 [place] [id number] [place] [address] 13268- 9383 Feb, [place] [address] [place] [address] 43229- 9182 Feb, Bipolar disorder, current episode depressed, moderate F31.32 and Generalized anxiety disorder F41.1 [place] [address] [place] [address] 60818- 3365 Feb, Generalized anxiety disorder F41.1 and Bipolar disorder, current episode depressed, moderate F31.32 [place] [id number] [place] [address] 50192- 2896 Jan, Bipolar disorder, current episode depressed, moderate F31.32 and Generalized anxiety disorder F41.1 [place] [address] [place] [address] 36958- 2807 Jan, Bipolar disorder, current episode depressed, moderate F31.32 and Generalized anxiety disorder F41.1 [facility] [id number] [place] [address] 92993- 7246 Dec, Generalized anxiety disorder F41.1 and Bipolar disorder, current episode depressed, moderate F31.32 [facility] [id number] [place] [address] 69185- 0109 Dec, Bipolar disorder, current episode depressed, moderate F31.32 and Generalized anxiety disorder F41.1 [facility] [id number] [place] [address] 84343- 0018 November, Bipolar disorder, current episode depressed, moderate F31.32 and Generalized anxiety disorder F41.1 [facility] [id number] [place] [address] 97401- 7647 November, Bipolar disorder, current episode depressed, moderate F31.32 and Generalized anxiety disorder F41.1 [facility] [id number] [place] [address] 37207- 8536 November, Generalized anxiety disorder F41.1 and Bipolar disorder, 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 [facility] [id number] [place] [address] 91010- 7717 Oct, Bipolar disorder, current episode depressed, moderate F31.32 and Generalized anxiety disorder F41.1 [facility] [id number] [address]- 4141 Oct, Bipolar disorder, current episode depressed, moderate F31.32 and Generalized anxiety disorder F41.1 [facility] [id number] [address]- 5488 Oct, Bipolar disorder, current episode depressed, moderate F31.32 and Generalized anxiety disorder F41.1 [facility] [id number] [address]- 5048 Oct, Bipolar disorder, current episode depressed, moderate F31.32 and Generalized anxiety disorder F41.1 [facility] [id number] [address]- 6115 Sep, Bipolar disorder, current episode depressed, moderate F31.32 and Generalized anxiety disorder F41.1 [facility] [address] [place] [address] 23612- 8530 Sep, Bipolar disorder, current episode depressed, moderate F31.32 and Generalized anxiety disorder F41.1 [facility] [id number] [place] [address] 29333- 9707 Sep, Bipolar disorder, current episode depressed, moderate F31.32 and Generalized anxiety disorder F41.1 [place] [id number] [place] [address] 97383- 8499 Sep, [place] [id number] [place] [address] 55171- 4003 Sep, Generalized anxiety disorder F41.1 and Bipolar disorder, current episode depressed, severe, without psychotic features F31.4 [place] [id number] [place] [address] 46799- 1396 Aug, Bipolar disorder, 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 and Generalized anxiety disorder F41.1 [place] [address] [place] [address] 20419- 4400 Aug, Bipolar disorder, 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 and Generalized anxiety disorder F41.1 [place] [address] [place] [address] 52409- 5051 Jul, Bipolar disorder, 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 and Generalized anxiety disorder F41.1 [facility] [address] [place] [address] 85535- 2690 Jul, Bipolar disorder, 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 and Generalized anxiety disorder F41.1 [facility] [address] [place] [address] 83544- 1166 Jun, [facility] [address] [place] [address] 33486- 4900 Jun, Bipolar disorder, 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 and Generalized anxiety disorder F41.1 [facility] [id number] [place] [address] 92994- 8408 Jun, Bipolar disorder, 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 and Generalized anxiety disorder F41.1 [facility] [id number] [place] [address] 28532- 4988 Jun, Generalized anxiety disorder F41.1 and Bipolar disorder, 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 [facility] [id number] [place] [address] 32202- 0110 May, Generalized anxiety disorder F41.1 and Bipolar disorder, current episode depressed, severe, without psychotic features F31.4 [facility] [id number] [place] [address] 33453- 8490 May, Bipolar disorder, 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 [facility] [id number] [place] [address] 56371- 9577 May, [facility] [id number] [place] [address] 39946- 5615 May, Bipolar disorder, unspecified F31.9 ; Generalized anxiety disorder F41.1 and Insomnia G47.00 [facility] [id number] [place] [address] 73781- 8349 May, Bipolar disorder, current episode depressed, severe, without psychotic features F31.4 and Generalized anxiety disorder F41.1 [facility] [id number] [place] [address] 14025- 3854 May, [facility] [id number] [place] [address] 78674- 5606 Apr, Bipolar disorder, current episode depressed, severe, without psychotic features F31.4 and Generalized anxiety disorder F41.1 [facility] [id number] [address]- 2583 Apr, Bipolar disorder, current episode depressed, severe, without psychotic features F31.4 [facility] [address] [address]- 3317 14 Apr, 2015 Bipolar disorder, current episode depressed, severe, without psychotic features F31.4 and Generalized anxiety disorder F41.1 [facility] [address] 8006 14 Mar, 2015 Bipolar disorder, unspecified 296.80 [facility] [id number] [place] [address] 101400- 9665 Mar, Bipolar disorder, unspecified 296.80 ; Generalized anxiety disorder 300.02 and Depression, major, recurrent 296.30 [facility] [id number] [place] [address] 394444- 3932 Feb, Bipolar disorder, unspecified 296.80 [facility] [id number] [place] [address] 15388- 5487 Jan, Bipolar disorder, unspecified 296.80 [facility] [id number] [place] [address] 02734- 4247 Dec, Bipolar disorder, unspecified 296.80 [facility] [id number] [place] [address] 925929- 8134 Dec, Bipolar disorder, unspecified 296.80 ; Major depressive disorder, recurrent episode, unspecified 296.30 and Generalized anxiety disorder 300.02 [facility] [address] [place] [address] 23669- 3698 November, Bipolar disorder, unspecified 296.80 [facility] [id number] [place] [address] 40535- 0856 Oct, [facility] [id number] [place] [address] 62622434- 1751 Oct, [facility] [id number] [place] [address] 019650- 5336 Sep, [facility] [address] [place] [address] 594524- 2492 Sep, [facility] [place] [facility] [address] [id number] [place] [address]- 9098 Jul, [facility] [place] [facility] [address] [id number] [place] [address]- 2224 Jul, [facility] [place] [facility] [address] [id number] [place] [address]- 6912 Jul, [facility] [place] [facility] [address] [id number] [place] [address]- 6871 Jul, [facility] [place] [facility] [address] [id number] [place] [address]- 8267 Jul, [facility] [place] [facility] [address] [id number] [place] [address]- 0912 Jul, [facility] [place] [facility] [address] [id number] [place] [address]- 0209 Jun, [facility] [place] [facility] [address] [id number] [place] [address]- 7710 Jun, [facility] [place] [facility] [address] [id number] [place] [address]- 8576 May, [facility] [place] [facility] [address] [id number] [place] [address]- 6691 May, [facility] [place] [facility] [address] [id number] [place] [address]- 6604 May, [facility] [place] [facility] [address] [id number] [place] [address]- 3242 May, [facility] [place] [facility] [address] [id number] [place] [address]- 9085 Apr, [facility] [place] [facility] [address] [id number] [place] [address]- 1332 Apr, [facility] [place] [facility] [address] [id number] [place] [address]- 3707 Mar, [facility] [place] [facility] [address] [id number] [place] [address]- 6044 Mar, [facility] [place] [facility] [address] [id number] [place] [address]- 7178 Feb, [facility] [place] [facility] [address] [id number] [place] [address]- 5823 Feb, [facility] [place] [facility] [address] [id number] [place] [address]- 2884 Feb, [facility] [place] [facility] [address] [id number] [place] [address]- 8270 Feb, [facility] [place] [facility] [address] [id number] [place] [address]- 7158 Feb, [facility] [place] [facility] [address] [id number] [place] [address]- 2470 Feb, [facility] [place] [facility] [address] [id number] [place] [address]- 8459 Feb, [facility] [place] [facility] [address] [id number] [place] [address]- 9790 Feb, [facility] [place] [facility] [address] [id number] [place] [address]- 8029 Feb, [facility] [place] [facility] [address] [id number] [place] [address]- 4100 Feb, [facility] [place] [facility] [address] [id number] [place] [address]- 4527 Feb, [facility] [place] [facility] [address] [id number] [place] [address]- 8769 Feb, [facility] [place] [facility] [address] [id number] [place] [address]- 2526 Feb, [facility] [place] [facility] [address] [id number] [place] [address]- 3290 Feb, [facility] [place] [facility] [address] [id number] [place] [address]- 5164 Jan, [facility] [place] [facility] [address] [id number] [place] [address]- 1173 Jan, [facility] [place] [facility] [address] [id number] [place] [address]- 5490 Jan, [facility] [place] [facility] [address] [id number] [place] [address]- 2944 Jan, [facility] [place] [facility] [address] [id number] [place] [address]- 0259 Jan, [facility] [place] [facility] [address] [id number] [place] [address]- 1125 Jan, [facility] [place] [facility] [address] [id number] [place] [address]- 0656 Jan, [facility] [place] [facility] [address] [id number] [place] [address]- 6516 Jan, [facility] [place] [facility] [address] [id number] [place] [address]- 8127 Dec, [facility] [place] [facility] [address] [id number] [place] [address]- 4247 Dec, [facility] [place] [facility] [address] [id number] [place] [address]- 6946 Dec, [facility] [place] [facility] [address] [id number] [place] [address]- 6402 Dec, [facility] [place] [facility] [address] [id number] [place] [address]- 4732 Dec, [facility] [place] [facility] [address] [id number] [place] [address]- 8575 Dec, [facility] [place] [facility] [address] [id number] [place] [address]- 5880 November, [facility] [place] [facility] [address] [id number] [place] [address]- 8275 November, [facility] [place] [facility] [address] [id number] [place] 7361 November, [facility] [place] [facility] [address] [id number] [place] [address]- 7324 November, [facility] [place] [facility] [address] [id number] [place] [address]- 1350 Oct, [facility] [place] [facility] [address] [id number] [place] [address]- 9325 Oct, [facility] [place] [facility] [address] [id number] [place] [address]- 4542 Sep, [facility] [place] [facility] [address] [id number] [place] [address]- 0756 Sep, [facility] [place] [facility] [address] [id number] [place] [address]- 1566 Sep, [facility] [place] [facility] [address] [id number] [place] [address]- 6743 Sep, [facility] [place] [facility] [address] [id number] [place] [address]- 8775 Sep, [facility] [place] [facility] [address] [id number] [place] [address]- 5744 Sep, [facility] [place] [facility] [address] [id number] [place] [address]- 5036 Sep, [facility] [place] [facility] [address] [id number] [place] [address]- 0868 Sep, [facility] [place] [facility] [address] [id number] [place] [address]- 1583 Aug, [facility] [place] [facility] [address] [id number] [place] [address]- 1500 Aug, [facility] [place] [facility] [address] [id number] [place] [address]- 6291 Aug, [facility] [place] [facility] [address] [id number] [place] [address]- 8069 Aug, [facility] [place] [facility] [address] [id number] [place] [address] 13 Aug, 2013 [facility] [address] [id number] [place] [address] Aug, [facility] [address] [id number] [place] [address] 07 Aug, 2013 [facility] [address] [id number] [place] [address] Aug, [facility] [address] [id number] [place] [address] Jul, [facility] [address] [id number] [place] [address] Jul, [facility] [address] [id number] [place] [address] Jul, [facility] [address] [id number] [place] [address] Jul, [facility] [address] [id number] [place] [address] Jul, [facility] [address] [id number] [place] [address] Jul, [facility] [address] [id number] [place] [address] Jul, [facility] [address] [id number] [place] [address] Jul, [facility] [address] [id number] [place] [address] Jun, [facility] [place] [facility] [address] [id number] [place] [address] Jun[facility] [facility] [address] [id number] [place] [address] Jun, [facility] [address] [id number] [place] [address] Jun, [facility] [place] [facility] [address] [id number] [place] [address] May, [facility] [place] [facility] [address] [id number] [place] [address] May, [facility] [place] [facility] [address] [id number] [place] [address] May, [facility] [place] [facility] [address] [id number] [place] [address] May, [facility] [place] [facility] [address] [id number] [place] [address] May, [facility] [place] [facility] [address] [id number] [place] [address] May, [facility] [place] [facility] [address] [id number] [place] [address] May, [facility] [place] [facility] [address] [id number] [place] [address] May, [facility] [place] [facility] [address] [id number] [place] [address] Apr, [facility] [place] [facility] [address] [id number] [place] [address] Apr, [facility] [place] [facility] [address] [id number] [place] [address] 2020 Apr, [facility] [place] [facility] [address] [id number] [place] [address] Apr, [facility] [place] [facility] [address] [id number] [place] [address] Apr, [facility] [place] [facility] [address] [id number] [place] [address] Apr, [facility] [place] [facility] [address] [id number] [place] [address] Apr, [facility] [place] [facility] [address] [id number] [place] [address] Apr, [facility] [address] [id number] [place] [address] Apr, [facility] [place] [address] [id number] [place] [address] Apr, [facility] [address] [id number] [place] [address] Apr, [facility] [place] [facility] [address] [id number] [place] [address] Mar, [facility] [address] [id number] [place] [address] Feb, [facility] [place] [facility] [address] [id number] [place] [address] Feb, [facility] [address] [id number] [place] [address] Feb, [facility] [place] [facility] [address] [id number] [place] [address] Jan, [facility] [address] [id number] [place] [address] Dec, [facility] [facility] [address] [id number] [place] [address] Dec, [facility] [address] [id number] [place] [address] Dec, [facility] [facility] [address] [id number] [place] [address] November, [facility] [address] [id number] [place] [address] November, [facility] [address] [id number] [place] [address] November, [facility] [place] [facility] [address] [id number] [place] [address] Oct, [facility] [address] [id number] [place] [address] Oct, [facility] [address] [id number] [place] [address] Oct, [facility] [place] [facility] [address] [id number] [place] [address] Sep, [facility] [place] [facility] [address] [id number] [place] [address]- [address] 05 Sep, 2012 [facility] [place] [facility] [address] [id number] [place] [address] Sep, [facility] [place] [facility] [address] [id number] [place] [address] Aug, [facility] [place] [facility] [address] [id number] [place] [address] Jul, [facility] [facility] [address] [id number] [place] [address] Jul, [facility] [address] [id number] [place] [address]- [address] Jun, [facility] [place] [address] [id number] [place] [address]- [address] Jun, [facility] [place] [facility] [address] [id number] [place] [address]- [address] May, [facility] [address] [id number] [place] [address]- 2541 May, [facility] [address] [id number] [place] [address] 25[address] May, [facility] [address] [id number] [place] [address] 2546 May, [facility] [place] [facility] [address] [id number] [place] [address]- [address]46 May, [facility] [address] [id number] [place] [address]- 56[address] May, [facility] [address] [id number] [place] [address]- 6[address] Apr, [facility] [address] [id number] [place] [address]- 3526 Feb, [facility] [address] [facility] [id number] [place] [address]- [address] Dec, [facility] [address] [id number] [place] [address]- 7986 November, [facility] [address] [id number] [place] [address]- 9534 Oct, [facility] [address] [id number] [place] [address]- 46[address] Oct, [facility] [address] [id number] [place] [address]- [address]686 Oct, [facility] [address] [id number] [place] [address] Sep, [facility] [address] [id number] [place] [address]- [address] Sep, [facility] [address] [facility] [id number] [place] [address]- [address] 15 Aug, 2011 [facility] [address] [id number] [place] [address] Jul, [facility] [address] [id number] [place] [address]- [address] Jul, [facility] [address] [id number] [place] [address]- [address] Jun, [facility] [address] [facility] [id number] [place] [address]- 9266 Jun, [facility] [address] [facility] [id number] [place] [address]- 2546 May, [facility] [address] [id number] [place] [address] 16 May, 2011 [facility] [address] [id number] [place] [address] Apr, [facility] [id number] [place] [address] Mar, [facility] [address] [id number] [place] [address] Jan, [facility] [id number] [place] [address] Dec, [facility] [id number] [place] [address] [address] 17 Jun, 2010 [facility] [id number] [place] [address]- [address] Jun, [facility] [id number] [place] [address]- [address] May, [facility] [address] [id number] [place] [address] May, IMMUNIZATIONS No Known Immunizations SOCIAL HISTORY Never Assessed REASON FOR VISIT DIPTI noriega/jaden douglas ma PLAN OF CARE Activity Details Follow Up 3 Months Reason: f/u VITAL SIGNS Height 65 in 2018-05-10 Weight 158.5 lbs 2018-05-10 Heart Rate 87 bpm 2018-05-10 Respiratory Rate 20 2018-05-10 BMI 26.37 kg/m2 2018-05-10 Blood pressure systolic 148 mmHg 2018-05-10 Blood pressure diastolic 78 mmHg 2018-05-10 MEDICATIONS Medication Instructions Dosage Frequency Start Date End Date Duration Status Hydrochlorothiazide 25 MG Orally Once a day 1 tablet 24h Not- Taking Omeprazole 40 mg 1 Capsule by Oral route 1 time per day Jan, Active Estradiol 1 mg 1 Tablet by Oral route 1 time per day Jun, Not-Taking Potassium Citrate ER 10 MEQ (1080 MG) Orally twice a day 1 tablet with meals 12h Not-Taking Hydrocodone-Acetaminophen 10-325 mg 1 Tablet by Oral route 4 times per day PRN pain Jan, Active Gabapentin 600 MG Orally Once a day 2 tablets 24h Jun, Not- Taking Oxybutynin Chloride ER 10 MG (Prior Auth: Rx Ref#:[id number]) 90 Active Lantus SoloStar 100 UNIT/ML (Prior Auth: Rx Ref#:[id number]) 90 Active Ropinirole HCl 3 MG TAKE 1 TABLET BY MOUTH ONCE DAILY AT BEDTIME 30 Active Magnesium 250 MG Orally twice a day 1 tablet with a meal 12h Not- Taking Topiramate 100 MG Orally Twice a day 1 tablet 12h 90 days Active Prozac 40 mg Orally client requests brand name twice a day 1 capsule 12h November, Active Metformin HCl 500 MG (Prior Auth: Rx Ref#:[id number]) 90 Active Gemfibrozil 600 mg 1 tablet by Oral route 2 times per day Sep, Not-Taking Janumet 50-1,000 mg 1 Tablet by Oral route 1 time per day Feb, Not-Taking Humalog 100 UNIT/ML (Prior Auth: Rx Ref#:[id number]) 25 Active Abilify 10 MG Orally Once a day 1 tablet 24h Sep, Active Carbidopa-Levodopa 25-100 MG TAKE 1 TABLET BY MOUTH THREE TIMES DAILY 10 Active RESULTS No Results PROCEDURES Procedure Date Ordered Result Body Site FQ VISIT ESTABLISHED PATIENT May 10, 2018 [facility] VISIT ESTABLISHED PATIENT May 10, 2018 INSTRUCTIONS MEDICATIONS ADMINISTERED No Known Medications MEDICAL [...] 05/19/17 Hospitalization History UTI - Hospital ED [facility] 05/31/17 Hospitalization History UTI 08-06-17
--- OUTSIDE RECORDS SUMMARY | 2018-11-19 07:31 | XMS REPORT ---
Author Author RYNE CAMP [facility] Address [address] [place] [address] Care Team Providers Care Judicial Clerk Name Role Phone RYNE CAMP Unavailable PROBLEMS Type Condition ICD9-CM Code [id number] Code Onset Dates Condition Status SNOMED Code Problem Bipolar disorder, current episode depressed, moderate F31.32 Active 920953743 Problem Generalized anxiety disorder F41.1 Active [id number] ALLERGIES No Information ENCOUNTERS Encounter Location Date Diagnosis [facility] [id number] [place] [address] 53169- 6320 May, [facility] [id number] [place] [address] 04891- 0279 Apr, [facility] [id number] [place] [address] 82890- 9555 Apr, [facility] [id number] [place] [address] 20179- 6523 Mar, Bipolar disorder, current episode depressed, moderate F31.32 and Generalized anxiety disorder F41.1 [facility] [id number] [place] [address] 89568- 3668 Mar, Bipolar disorder, current episode depressed, moderate F31.32 and Generalized anxiety disorder F41.1 [facility] [id number] [place] [address] 12572- 0688 Feb, [facility] [id number] [place] [address] 49046- 2748 Jan, Bipolar disorder, current episode depressed, moderate F31.32 and Generalized anxiety disorder F41.1 [facility] [id number] [place] [address] 40596- 7390 Jan, Bipolar disorder, current episode depressed, moderate F31.32 and Generalized anxiety disorder F41.1 [facility] [id number] [address]- 7565 Jan, Bipolar disorder, current episode depressed, moderate F31.32 [facility] [id number] [place] [address] 57597- 8212 Jan, Bipolar disorder, current episode depressed, moderate F31.32 [facility] [id number] [place] [address] 67429- 7080 Jan, Bipolar disorder, current episode depressed, moderate F31.32 and Generalized anxiety disorder F41.1 [facility] [id number] [place] [address] 92833- 9008 Dec, Bipolar disorder, current episode depressed, moderate F31.32 and Generalized anxiety disorder F41.1 [facility] [id number] [place] [address] 93501- 4029 November, Bipolar disorder, current episode depressed, moderate F31.32 and Generalized anxiety disorder F41.1 [facility] [id number] [place] [address] 28304- 1558 November, Bipolar disorder, current episode depressed, moderate F31.32 and Generalized anxiety disorder F41.1 [facility] [id number] [place] [address] 56326- 4924 Oct, Bipolar disorder, current episode depressed, moderate F31.32 and Generalized anxiety disorder F41.1 [facility] [id number] [place] [address] 46386- 0629 Oct, Bipolar disorder, current episode depressed, moderate F31.32 and Generalized anxiety disorder F41.1 [facility] [id number] [place] [address] 17285- 5921 Oct, Bipolar disorder, current episode depressed, moderate F31.32 [facility] [id number] [address]- 6550 Oct, Bipolar disorder, current episode depressed, moderate F31.32 and Generalized anxiety disorder F41.1 [facility] [id number] [place] [address] 37840- 8761 Sep, Bipolar disorder, current episode depressed, moderate F31.32 and Generalized anxiety disorder F41.1 [facility] [id number] [place] [address] 58386- 5721 Aug, Bipolar disorder, current episode depressed, moderate F31.32 [facility] [id number] [place] [address] 79837- 7230 Aug, Bipolar disorder, current episode depressed, moderate F31.32 and Generalized anxiety disorder F41.1 [facility] [id number] [place] [address] 46401- 3481 Jul, Bipolar disorder, current episode depressed, moderate F31.32 and Generalized anxiety disorder F41.1 [facility] [id number] [place] [address] 58486- 1232 Jul, Bipolar disorder, current episode depressed, moderate F31.32 and High risk medication use Z79.899 [facility] [id number] [place] [address] 03983- 0081 Jul, Generalized anxiety disorder F41.1 and Bipolar disorder, current episode depressed, moderate F31.32 [facility] [id number] [place] [address] 33690- 8377 Feb, Bipolar disorder, current episode depressed, moderate F31.32 and Generalized anxiety disorder F41.1 [facility] [id number] [place] [address] 50615- 6867 November, Bipolar disorder, current episode depressed, moderate F31.32 and Generalized anxiety disorder F41.1 [facility] [id number] [place] [address] 18746- 3908 Aug, Bipolar disorder, current episode depressed, moderate F31.32 and Generalized anxiety disorder F41.1 [place] [facility] [id number] [place] [address] 41069- 0794 Aug, [facility] [id number], [place] [address] -6862 Aug, Dysuria R30.0 and Acute cystitis with hematuria N30.01 [facility] [address], [place] [address]- 6410 Aug, Dysuria R30.0 [facility] [id number] [place] [address] 75215- 5774 Aug, Bipolar disorder, current episode depressed, moderate F31.32 and Generalized anxiety disorder F41.1 [facility] [id number] [place] [address] 10048- 9033 Jul, Bipolar disorder, current episode depressed, moderate F31.32 and Generalized anxiety disorder F41.1 [facility] [id number] [place] [address] 98414- 3100 May, Generalized anxiety disorder F41.1 and Bipolar disorder, current episode depressed, moderate F31.32 [facility] [id number] [place] [address] 46415- 7114 May, Bipolar disorder, current episode depressed, moderate F31.32 and Generalized anxiety disorder F41.1 [facility] [address] [address]- 5898 Apr, [facility] [id number] [place] [address] 81495- 3613 Apr, [facility] [id number] [place] [address] 69207- 4438 Apr, Bipolar disorder, current episode depressed, moderate F31.32 and Generalized anxiety disorder F41.1 [facility] [id number] [place] [address] 38649- 7534 Apr, [facility] [id number], [place] [address]- 2874 Apr, Adjustment disorder with mixed anxiety and depressed mood F43.23 [facility] [id number], [place] [address]- 9229 Mar, Bipolar disorder, current episode depressed, moderate F31.32 and Generalized anxiety disorder F41.1 [facility] [id number], [place] [address]- 8686 Feb, Bipolar disorder, current episode depressed, moderate F31.32 and Generalized anxiety disorder F41.1 [facility] [id number] [place] [address] 79120- 0030 Feb, [facility] [id number] [place] [address] 89259- 4319 Feb, Bipolar disorder, current episode depressed, moderate F31.32 and Generalized anxiety disorder F41.1 [facility] [id number] [place] [address] 29948- 4000 Feb, Generalized anxiety disorder F41.1 and Bipolar disorder, current episode depressed, moderate F31.32 [facility] [id number] [address]- 3889 Jan, Bipolar disorder, current episode depressed, moderate F31.32 and Generalized anxiety disorder F41.1 [facility] [id number] [place] [address] 06176- 6559 Jan, Bipolar disorder, current episode depressed, moderate F31.32 and Generalized anxiety disorder F41.1 [facility] [address] [address]- 2178 Dec, Generalized anxiety disorder F41.1 and Bipolar disorder, current episode depressed, moderate F31.32 [facility] [id number] [place] [address] 75283- 2888 Dec, Bipolar disorder, current episode depressed, moderate F31.32 and Generalized anxiety disorder F41.1 [facility] [id number], [place] [address]- 6321 November, Bipolar disorder, current episode depressed, moderate F31.32 and Generalized anxiety disorder F41.1 [facility] [id number] [place] [address] 99896- 7463 November, Bipolar disorder, current episode depressed, moderate F31.32 and Generalized anxiety disorder F41.1 [facility] [id number] [place] [address] 09601- 8615 November, Generalized anxiety disorder F41.1 and Bipolar disorder, 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 [facility] [id number] [place] [address] 22676- 5581 Oct, Bipolar disorder, current episode depressed, moderate F31.32 and Generalized anxiety disorder F41.1 [facility] [id number] [place] [address] 26291- 3053 Oct, Bipolar disorder, current episode depressed, moderate F31.32 and Generalized anxiety disorder F41.1 [place] [id number] [place] [address] 60394- 3348 Oct, Bipolar disorder, current episode depressed, moderate F31.32 and Generalized anxiety disorder F41.1 [facility] [id number] [place] [address] 26264- 8506 Oct, Bipolar disorder, current episode depressed, moderate F31.32 and Generalized anxiety disorder F41.1 [facility] [id number] [place] [address] 73853- 3863 Sep, Bipolar disorder, current episode depressed, moderate F31.32 and Generalized anxiety disorder F41.1 [facility] [id number] [place] [address] 52025- 8350 24 Sep, 2015 Bipolar disorder, current episode depressed, moderate F31.32 and Generalized anxiety disorder F41.1 [facility] [id number] [place] [address] 72817- 3965 10 Sep, 2015 Bipolar disorder, current episode depressed, moderate F31.32 and Generalized anxiety disorder F41.1 [facility] [id number] [place] [address] 15006- 7240 Sep, [facility] [id number] [place] [address] 86221- 2059 Sep, Generalized anxiety disorder F41.1 and Bipolar disorder, current episode depressed, severe, without psychotic features F31.4 [facility] [id number] [place] [address] 60490- 1640 Aug, Bipolar disorder, 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 and Generalized anxiety disorder F41.1 [facility] [id number] [place] [address] 42735- 3182 Aug, Bipolar disorder, 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 and Generalized anxiety disorder F41.1 [facility] [id number] [place] [address] 34431- 9777 Jul, Bipolar disorder, 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 and Generalized anxiety disorder F41.1 [place] [id number] [place] [address] 59752- 8797 Jul, Bipolar disorder, 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 and Generalized anxiety disorder F41.1 [facility] [id number] [place] [address] 94229- 4024 Jun, [facility] [id number] [place] [address] 96623- 5238 Jun, Bipolar disorder, 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 and Generalized anxiety disorder F41.1 [facility] [id number] [place] [address] 07378- 2321 Jun, Bipolar disorder, 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 and Generalized anxiety disorder F41.1 [facility] [id number] [place] [address] 47552- 0556 Jun, Generalized anxiety disorder F41.1 and Bipolar disorder, 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 [facility] [id number] [place] [address] 77715- 9955 May, Generalized anxiety disorder F41.1 and Bipolar disorder, current episode depressed, severe, without psychotic features F31.4 [facility] [address], [place] [address]- 5541 May, Bipolar disorder, 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 [facility] [id number] [place] [address] 12846- 5923 May, [facility] [id number] [place] [address] 34102- 7698 May, Bipolar disorder, unspecified F31.9 ; Generalized anxiety disorder F41.1 and Insomnia G47.00 [facility] [id number] [place] [address] 26500- 2807 May, Bipolar disorder, current episode depressed, severe, without psychotic features F31.4 and Generalized anxiety disorder F41.1 [facility] [id number] [place] [address] 41690- 7901 May, [facility] [id number] [place] [address] 07231- 4751 Apr, Bipolar disorder, current episode depressed, severe, without psychotic features F31.4 and Generalized anxiety disorder F41.1 [facility] [id number] [place] [address] 01312- 1011 Apr, Bipolar disorder, current episode depressed, severe, without psychotic features F31.4 [facility] [address], [place] [address]- 2960 Apr, Bipolar disorder, current episode depressed, severe, without psychotic features F31.4 and Generalized anxiety disorder F41.1 [facility] [id number] [place] [address] 67481- 6506 14 Mar, 2015 Bipolar disorder, unspecified 296.80 [facility] [id number] [place] [id number]- 9692 02 Mar, 2015 Bipolar disorder, unspecified 296.80 ; Generalized anxiety disorder 300.02 and Depression, major, recurrent 296.30 [facility] [id number] [place] [address] 14993- 4579 Feb, Bipolar disorder, unspecified 296.80 [facility] [address], [place] [address]- 5326 Jan, Bipolar disorder, unspecified 296.80 [facility] [id number] [address]- 2546 Dec, Bipolar disorder, unspecified 296.80 [facility] [id number] [place] [address] 21244- 2546 Dec, Bipolar disorder, unspecified 296.80 ; Major depressive disorder, recurrent episode, unspecified 296.30 and Generalized anxiety disorder 300.02 [facility] [id number] [place] [address] 29007- 2776 November, Bipolar disorder, unspecified 296.80 [facility] [address], [place] [address]- 9112 Oct, [facility] [id number] [address]- 6108 Oct, [facility] [address], [place] [address]- 9406 Sep, [facility] [address], [place] [address]- 6088 Sep, [facility] [address], [place] [address]- 5623 Jul, [facility] [address], [place] [address]- 4138 Jul, [facility] [address], [place] [address]- 3075 Jul, [facility] [address], [place] [address]- 2486 Jul, [facility] [address], [place] [address]- 5256 Jul, [facility] [id number] [place] [address] [place] [address]- 3163 Jul, [facility] [place] [facility] [address] [id number] [place] [address]- 4003 Jun, [facility] [place] [facility] [address] [id number] [place] [address]- 6787 Jun, [facility] [place] [facility] [address] [id number] [place] [address]- 1104 May, [facility] [place] [facility] [address] [id number] [place] [address]- 4755 May, [facility] [place] [facility] [address] [id number] [place] [address]- 5486 May, [facility] [place] [facility] [address] [id number] [place] [address]- 7251 May, [facility] [place] [facility] [address] [id number] [place] [address]- 4702 Apr, [facility] [place] [facility] [address] [id number] [place] [address]- 4588 Apr, [facility] [place] [facility] [address] [id number] [place] [address]- 1070 Mar, [facility] [place] [facility] [address] [id number] [place] [address]- 1487 Mar, [facility] [place] [facility] [address] [id number] [place] [address]- 0493 Feb, [facility] [place] [facility] [address] [id number] [place] [address]- 2747 Feb, [facility] [place] [facility] [address] [id number] [place] [address]- 4359 Feb, [facility] [place] [facility] [address] [id number] [place] [address]- 7680 Feb, [facility] [place] [facility] [address] [id number] [place] [address]- 2568 Feb, [facility] [place] [facility] [address] [id number] [place] [address]- 6524 Feb, [facility] [place] [facility] [address] [id number] [place] [address]- 9917 Feb, [facility] [place] [facility] [address] [id number] [place] [address]- 9676 Feb, [facility] [place] [facility] [address] [id number] [place] [address]- 9879 Feb, [facility] [place] [facility] [address] [id number] [place] [address]- 9556 Feb, [facility] [place] [facility] [address] [id number] [place] [address]- 4016 Feb, [facility] [place] [facility] [address] [id number] [place] [address]- 1023 Feb, [facility] [place] [facility] [address] [id number] [place] [address]- 7863 Feb, [facility] [place] [facility] [address] [id number] [place] [address]- 3517 Feb, [facility] [place] [facility] [address] [id number] [place] [address]- 1984 Jan, [facility] [place] [facility] [address] [id number] [place] [address]- 6962 Jan, [facility] [place] [facility] [address] [id number] [place] [address]- 5187 Jan, [facility] [place] [facility] [address] [id number] [place] [address]- 7017 Jan, [facility] [place] [facility] [address] [id number] [place] [address]- 1112 Jan, [facility] [place] [facility] [address] [id number] [place] [address]- 0642 Jan, [facility] [place] [facility] [address] [id number] [place] [address]- 4789 Jan, [facility] [place] [facility] [address] [id number] [place] [address]- 7976 Jan, [facility] [place] [facility] [address] [id number] [place] [address]- 5184 Dec, [facility] [place] [facility] [address] [id number] [place] [address]- 7648 Dec, [facility] [place] [facility] [address] [id number] [place] [address]- 1824 Dec, [facility] [place] [facility] [address] [id number] [place] [address]- 5033 Dec, [facility] [place] [facility] [address] [id number] [place] [address]- 8269 Dec, [facility] [place] [facility] [address] [id number] [place] [address]- 3739 Dec, [facility] [place] [facility] [address] [id number] [place] [address]- 8392 November, [facility] [place] [facility] [address] [id number] [place] [address]- 7937 November, [facility] [place] [facility] [address] [id number] [place] [address]- 3147 November, [facility] [place] [facility] [address] [id number] [place] [address]- 4060 November, [facility] [place] [facility] [address] [id number] [address]- 9331 Oct, [facility] [place] [facility] [address] [id number] [place] [address]- 6000 Oct, [facility] [place] [facility] [address] [id number] [place] [address]- 7906 Sep, [facility] [place] [facility] [address] [id number] [place] [address]- 3204 Sep, [facility] [place] [facility] [address] [id number] [place] [address]- 5434 Sep, [facility] [place] [facility] [address] [id number] [place] [address]- 6747 Sep, [facility] [place] [facility] [address] [id number] [place] [address]- 4136 Sep, [facility] [place] [facility] [address] [id number] [place] [address]- 8904 Sep, [facility] [place] [facility] [address] [id number] [place] [address]- 4919 Sep, [facility] [place] [facility] [address] [id number] [place] [address]- 5734 Sep, [facility] [place] [facility] [address] [id number] [place] [address]- 0296 Aug, [facility] [place] [facility] [address] [facility] [id number] [place] [address]- 8723 Aug, [facility] [place] [facility] [address] [id number] [place] [address] Aug, [facility] [place] [facility] [address] [facility] [id number] [place] [address] Aug, [facility] [place] [facility] [address] [facility] [id number] [place] [address] Aug, [facility] [place] [facility] [address] [facility] [id number] [place] [address] Aug, [facility] [place] [facility] [address] [id number] [place] [address] Aug, [facility] [place] [facility] [address] [id number] [place] [address] Aug, [facility] [place] [facility] [address] [facility] [id number] [place] [address] Jul, [facility] [place] [facility] [address] [id number] [place] [address] Jul, [facility] [place] [facility] [address] [id number] [place] [address] Jul, [facility] [place] [facility] [address] [id number] [place] [address] Jul, [facility] [place] [facility] [address] [facility] [id number] [place] [address] Jul, [facility] [place] [facility] [address] [id number] [place] [address] Jul, [facility] [place] [facility] [address] [id number] [place] [address] Jul, [facility] [place] [facility] [address] [id number] [place] [address] Jul, [facility] [place] [facility] [address] [id number] [place] [address] Jun, [facility] [place] [facility] [address] [id number], [place] [address] Jun, [facility] [place] [facility] [address] [id number] [place] [address] Jun, [facility] [place] [facility] [address] [id number] [place] [address] Jun, [facility] [place] [facility] [address] [id number], [place] [address] May, [facility] [place] [facility] [address] [id number], [place] [address] May, [facility] [place] [facility] [address] [id number] [place] [address] May, [facility] [place] [facility] [address] [id number], [place] [address] May, [facility] [facility] [address] [id number], [place] [address] May, [facility] [place] [facility] [address] [id number] [place] [address] May, [facility] [place] [facility] [address] [id number] [id number] [address] May, [facility] [place] [facility] [address] [id number] [place] [address] May, [facility] [place] [facility] [address] [id number] [place] [address] Apr, [facility] [place] [facility] [address] [id number] [place] [address] Apr, [facility] [place] [facility] [address] [id number] [place] [address] Apr, [facility] [place] [facility] [address] [id number] [place] [address] Apr, [facility] [place] [facility] [address] [id number] [place] [address] Apr, [facility] [place] [facility] [address] [id number] [place] [address] Apr, [facility] [place] [facility] [address] [id number] [place] [address] Apr, [facility] [place] [facility] [address] [id number] [place] [address] Apr, [facility] [place] [facility] [address] [id number] [place] [address] Apr, [facility] [place] [facility] [address] [id number] [place] [address] Apr, [facility] [place] [facility] [address] [id number] [place] [address] Apr, [facility] [place] [facility] [address] [id number] [place] [address] Mar, [facility] [place] [facility] [address] [id number] [place] [address] Feb, [facility] [place] [facility] [address] [id number] [place] [address] Feb, [facility] [address] [id number] [place] [address] Feb[facility] [address] [id number] [place] [address] Jan, [facility] [address] [id number] [place] [address] Dec, [facility] [address] [id number] [place] [address] Dec, [facility] [address] [id number] [place] [address] Dec, [facility] [address] [id number] [place] [address] November, [facility] [address] [id number] [place] [address] November, [facility] [address] [id number] [place] [address] November, [facility] [address] [id number] [place] [address] Oct, [facility] [address] [id number] [place] [address] Oct, [facility] [address] [id number] [place] [address] Oct, [facility] [address] [id number] [place] [address] 15 Sep, 2012 [facility] [facility] [address] [id number] [place] [address]- [address] 05 Sep, 2012 [facility] [address] [id number] [place] [address] 04 Sep, 2012 [facility] [address] [id number], [place] [address] Aug, [facility] [address] [id number] [place] [address] Jul, [facility] [place] [facility] [address] [id number] [place] [address] Jul, [facility] [place] [facility] [address] [id number] [place] [address] Jun, [facility] [place] [facility] [address] [id number] [place] [address]65 Jun, [facility] [place] [facility] [address] [id number] [place] [address] May, [facility] [place] [facility] [address] [id number] [place] [address] May, [facility] [place] [facility] [address] [id number] [place] [address] May, [facility] [place] [facility] [address] [id number] [place] [address] May, [facility] [facility] [address] [id number] [place] [address] May, [facility] [address] [id number] [place] [address] May, [facility] [address] [id number], [place] [address] Apr, [facility] [address] [id number], [place] [address] Feb, [facility] [address] [id number] [place] [address] Dec, [facility] [address] [id number] [place] [address] November, [facility] [facility] [address] [id number] [place] [address] Oct, [facility] [address] [id number] [place] [address]- [address] 13 Oct, 2011 [facility] [address] [id number] [place] [address]- [address] 12 Oct, 2011 [facility] [address] [id number] [place] [address]46 20 Sep, 2011 [facility] [address] [id number] [place] [address]- [address] 14 Sep, 2011 [facility] [address] [id number] [place] [address]- [address] 15 Aug, 2011 [facility] [address] [id number] [place] [address]- [address] Jul, [facility] [address] [id number] [place] [address] Jul, [facility] [address] [id number] [place] [address] Jun, [facility] [address] [id number] [place] [address] Jun, [facility] [address] [id number] [place] [address] May, [facility] [address] [facility] [id number] [place] [address] 16 May, 2011 [facility] [address] [id number] [place] [address] 27 Apr, 2011 [facility] [address] [id number] [place] [address] Mar, [facility] [address] [id number] [place] [address]- [address] 20 Jan, 2011 [facility] [address] [id number] [place] [address]- [address] Dec, [facility] [address] [id number] [place] [address] 17 Jun, 2010 [facility] [address] [facility] [id number] [place] [address] Jun, [facility] [address] [facility] [id number], [place] [address] May, [facility] [address] [facility] [id number] [place] [address] 10 May, 2010 IMMUNIZATIONS No Known Immunizations SOCIAL HISTORY Never Assessed REASON FOR VISIT Requests return call PLAN OF CARE VITAL SIGNS MEDICATIONS Unknown [...] 05/19/17 Hospitalization History UTI - Hospital ED [facility] 05/31/17 Hospitalization History UTI 08-06-17
--- OUTSIDE RECORDS SUMMARY | 2018-11-19 07:31 | XMS REPORT ---
Author Author RYNE CAMP [facility] Address [address] [place] [address] Care Team Providers Care Senior Statistician Name Role Phone RYNE CAMP Unavailable PROBLEMS Type Condition ICD9-CM Code UNX18-DV Code Onset Dates Condition Status SNOMED Code Problem Bipolar disorder, current episode depressed, moderate F31.32 Active 051569947 Problem Generalized anxiety disorder F41.1 Active [id number] ALLERGIES No Information ENCOUNTERS Encounter Location Date Diagnosis [facility] [id number] [place] [address] 50163- 8557 May, [facility] [id number] [place] [address] 40331- 7842 Apr, [facility] [id number] [place] [address] 72367- 7052 Apr, [facility] [id number] [place] [address] 27867- 8011 Mar, Bipolar disorder, current episode depressed, moderate F31.32 and Generalized anxiety disorder F41.1 [facility] [id number] [place] [address] 06315- 8398 Mar, Bipolar disorder, current episode depressed, moderate F31.32 and Generalized anxiety disorder F41.1 [facility] [id number] [place] [address] 74341- 5858 Feb, [facility] [id number] [place] [address] 51500- 6399 Jan, Bipolar disorder, current episode depressed, moderate F31.32 and Generalized anxiety disorder F41.1 [facility] [id number] [place] [address] 78319- 7317 Jan, Bipolar disorder, current episode depressed, moderate F31.32 and Generalized anxiety disorder F41.1 [facility] [id number] [address]- 5682 Jan, Bipolar disorder, current episode depressed, moderate F31.32 [facility] [id number] [place] [address] 41176- 6881 Jan, Bipolar disorder, current episode depressed, moderate F31.32 [facility] [id number] [place] [address] 02932- 3305 Jan, Bipolar disorder, current episode depressed, moderate F31.32 and Generalized anxiety disorder F41.1 [facility] [id number] [place] [address] 03311- 2081 Dec, Bipolar disorder, current episode depressed, moderate F31.32 and Generalized anxiety disorder F41.1 [facility] [id number] [place] [address] 33755- 0590 November, Bipolar disorder, current episode depressed, moderate F31.32 and Generalized anxiety disorder F41.1 [facility] [id number] [place] [address] 21718- 5120 November, Bipolar disorder, current episode depressed, moderate F31.32 and Generalized anxiety disorder F41.1 [facility] [id number] [place] [address] 03120- 6491 Oct, Bipolar disorder, current episode depressed, moderate F31.32 and Generalized anxiety disorder F41.1 [facility] [id number] [place] [address] 11676- 9456 Oct, Bipolar disorder, current episode depressed, moderate F31.32 and Generalized anxiety disorder F41.1 [facility] [id number] [place] [address] 66052- 4975 Oct, Bipolar disorder, current episode depressed, moderate F31.32 [facility] [id number] [address]- 4396 Oct, Bipolar disorder, current episode depressed, moderate F31.32 and Generalized anxiety disorder F41.1 [facility] [id number] [place] [address] 26643- 5802 Sep, Bipolar disorder, current episode depressed, moderate F31.32 and Generalized anxiety disorder F41.1 [facility] [id number] [place] [address] 19447- 0012 Aug, Bipolar disorder, current episode depressed, moderate F31.32 [facility] [id number] [place] [address] 06626- 6984 Aug, Bipolar disorder, current episode depressed, moderate F31.32 and Generalized anxiety disorder F41.1 [facility] [id number] [place] [address] 75083- 3477 Jul, Bipolar disorder, current episode depressed, moderate F31.32 and Generalized anxiety disorder F41.1 [facility] [id number] [place] [address] 34595- 5970 Jul, Bipolar disorder, current episode depressed, moderate F31.32 and High risk medication use Z79.899 [facility] [id number] [place] [address] 28883- 8546 Jul, Generalized anxiety disorder F41.1 and Bipolar disorder, current episode depressed, moderate F31.32 [facility] [id number] [place] [address] 74865- 6778 Feb, Bipolar disorder, current episode depressed, moderate F31.32 and Generalized anxiety disorder F41.1 [facility] [id number] [place] [address] 00191- 2461 November, Bipolar disorder, current episode depressed, moderate F31.32 and Generalized anxiety disorder F41.1 [facility] [id number] [place] [address] 33583- 5471 Aug, Bipolar disorder, current episode depressed, moderate F31.32 and Generalized anxiety disorder F41.1 [facility] [id number] [place] [address] 19759- 7774 Aug, [facility] [id number] [address] -7383 Aug, Dysuria R30.0 and Acute cystitis with hematuria N30.01 [facility] [address] [address]- 5014 Aug, Dysuria R30.0 [facility] [id number] [place] [address] 93559- 7674 Aug, Bipolar disorder, current episode depressed, moderate F31.32 and Generalized anxiety disorder F41.1 [facility] [id number] [place] [address] 37399- 2825 Jul, Bipolar disorder, current episode depressed, moderate F31.32 and Generalized anxiety disorder F41.1 [facility] [id number] [place] [address] 04605- 3496 May, Generalized anxiety disorder F41.1 and Bipolar disorder, current episode depressed, moderate F31.32 [facility] [address] [place] [address] 01972- 3230 May, Bipolar disorder, current episode depressed, moderate F31.32 and Generalized anxiety disorder F41.1 [facility] [address] [address]- 9242 Apr, [facility] [address] [place] [address] 89884- 5114 Apr, [facility] [id number] [place] [address] 32820- 5744 Apr, Bipolar disorder, current episode depressed, moderate F31.32 and Generalized anxiety disorder F41.1 [facility] [address] [place] [address] 51593- 2420 Apr, [facility] [id number] [address]- 1300 Apr, Adjustment disorder with mixed anxiety and depressed mood F43.23 [facility] [id number] [address]- 0333 Mar, Bipolar disorder, current episode depressed, moderate F31.32 and Generalized anxiety disorder F41.1 [facility] [id number] [address]- 1340 Feb, Bipolar disorder, current episode depressed, moderate F31.32 and Generalized anxiety disorder F41.1 [facility] [id number] [place] [address] 96911- 4618 Feb, [facility] [id number] [place] [address] 92210- 9191 Feb, Bipolar disorder, current episode depressed, moderate F31.32 and Generalized anxiety disorder F41.1 [facility] [address] [place] [address] 80978- 6735 Feb, Generalized anxiety disorder F41.1 and Bipolar disorder, current episode depressed, moderate F31.32 [facility] [id number] [address]- 5287 Jan, Bipolar disorder, current episode depressed, moderate F31.32 and Generalized anxiety disorder F41.1 [facility] [id number] [place] [address] 92267- 5525 Jan, Bipolar disorder, current episode depressed, moderate F31.32 and Generalized anxiety disorder F41.1 [facility] [address] [address]- 3577 Dec, Generalized anxiety disorder F41.1 and Bipolar disorder, current episode depressed, moderate F31.32 [facility] [id number] [place] [address] 41089- 5740 Dec, Bipolar disorder, current episode depressed, moderate F31.32 and Generalized anxiety disorder F41.1 [facility] [id number] [address]- 0758 November, Bipolar disorder, current episode depressed, moderate F31.32 and Generalized anxiety disorder F41.1 [facility] [id number] [place] [address] 47472- 3431 November, Bipolar disorder, current episode depressed, moderate F31.32 and Generalized anxiety disorder F41.1 [facility] [id number] [place] [address] 41877- 6967 November, Generalized anxiety disorder F41.1 and Bipolar disorder, 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 [facility] [id number] [place] [address] 79594- 9547 Oct, Bipolar disorder, current episode depressed, moderate F31.32 and Generalized anxiety disorder F41.1 [facility] [id number] [place] [address] 21437- 2393 Oct, Bipolar disorder, current episode depressed, moderate F31.32 and Generalized anxiety disorder F41.1 [facility] [id number] [place] [address] 87023- 9802 Oct, Bipolar disorder, current episode depressed, moderate F31.32 and Generalized anxiety disorder F41.1 [facility] [id number] [place] [address] 07393- 8869 Oct, Bipolar disorder, current episode depressed, moderate F31.32 and Generalized anxiety disorder F41.1 [facility] [address] [place] [address] 90158- 8029 Sep, Bipolar disorder, current episode depressed, moderate F31.32 and Generalized anxiety disorder F41.1 [facility] [address] [place] [address] 56924- 1392 24 Sep, 2015 Bipolar disorder, current episode depressed, moderate F31.32 and Generalized anxiety disorder F41.1 [facility] [id number] [place] [address] 47350- 3029 10 Sep, 2015 Bipolar disorder, current episode depressed, moderate F31.32 and Generalized anxiety disorder F41.1 [facility] [address] [place] [address] 77696- 8210 Sep, [facility] [address] [place] [address] 04592- 6907 Sep, Generalized anxiety disorder F41.1 and Bipolar disorder, current episode depressed, severe, without psychotic features F31.4 [facility] [address] [place] [address] 85897- 4574 Aug, Bipolar disorder, 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 and Generalized anxiety disorder F41.1 [facility] [id number] [place] [address] 22310- 5067 Aug, Bipolar disorder, 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 and Generalized anxiety disorder F41.1 [facility] [id number] [place] [address] 40086- 2936 Jul, Bipolar disorder, 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 and Generalized anxiety disorder F41.1 [facility] [id number] [place] [address] 14439- 6094 Jul, Bipolar disorder, 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 and Generalized anxiety disorder F41.1 [facility] [id number] [place] [address] 43963- 6533 Jun, [facility] [id number] [place] [address] 36401- 3177 Jun, Bipolar disorder, 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 and Generalized anxiety disorder F41.1 [facility] [id number] [place] [address] 81318- 3031 Jun, Bipolar disorder, 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 and Generalized anxiety disorder F41.1 [facility] [address] [place] [address] 04639- 8068 Jun, Generalized anxiety disorder F41.1 and Bipolar disorder, 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9 ; Generalized anxiety disorder F41.1 and Insomnia G47.00 [facility] [id number] [place] [address] 22587- 2777 May, Bipolar disorder, current episode depressed, severe, without psychotic features F31.4 and Generalized anxiety disorder F41.1 [facility] [id number] [place] [address] 25805- 4345 May, [facility] [id number] [place] [address] 99670- 6575 Apr, Bipolar disorder, current episode depressed, severe, without psychotic features F31.4 and Generalized anxiety disorder F41.1 [facility] [id number] [place] [address] 13482- 8188 Apr, Bipolar disorder, current episode depressed, severe, without psychotic features F31.4 [facility] [address] [address]- 6910 Apr, Bipolar disorder, current episode depressed, severe, without psychotic features F31.4 and Generalized anxiety disorder F41.1 [facility] [address] [place] [address] 55293- 7140 14 Mar, 2015 Bipolar disorder, unspecified 296.80 [facility] [id number] [place] [address]- 5480 02 Mar, 2015 Bipolar disorder, unspecified 296.80 ; Generalized anxiety disorder 300.02 and Depression, major, recurrent 296.30 [facility] [id number] [place] [address] 31891- 1125 Feb, Bipolar disorder, unspecified 296.80 [facility] [address] [address]- 6286 Jan, Bipolar disorder, unspecified 296.80 [facility] [id number] [address]- 2546 Dec, Bipolar disorder, unspecified 296.80 [facility] [id number] [place] [address] 44854- 2546 Dec, Bipolar disorder, unspecified 296.80 ; Major depressive disorder, recurrent episode, unspecified 296.30 and Generalized anxiety disorder 300.02 [facility] [id number] [place] [address] 61186- 5796 November, Bipolar disorder, unspecified 296.80 [facility] [address] [address]- 3960 Oct, [facility] [id number] [address]- 2400 Oct, [facility] [address] [address]- 7438 Sep, [facility] [address] [address]- 1655 Sep, [facility] [address] [address]- 3227 Jul, [facility] [address] [address]- 8801 Jul, [facility] [address] [address]- 4797 Jul, [facility] [address] [address]- 9876 Jul, [facility] [address] [address]- 1806 Jul, [facility] [id number] [place] [address] [place] [address]- 4030 Jul, [facility] [place] [facility] [address] [id number] [place] [address]- 4549 Jun, [facility] [place] [facility] [address] [id number] [place] [address]- 1571 Jun, [facility] [place] [facility] [address] [id number] [place] [address]- 2882 May, [facility] [place] [facility] [address] [id number] [place] [address]- 1378 May, [facility] [place] [facility] [address] [id number] [place] [address]- 5803 May, [facility] [place] [facility] [address] [id number] [place] [address]- 0328 May, [facility] [place] [facility] [address] [id number] [place] [address]- 5680 Apr, [facility] [place] [facility] [address] [id number] [place] [address]- 5872 Apr, [facility] [place] [facility] [address] [id number] [place] [address]- 1740 Mar, [facility] [place] [facility] [address] [id number] [place] [address]- 5356 Mar, [facility] [place] [facility] [address] [id number] [place] [address]- 4763 Feb, [facility] [place] [facility] [address] [id number] [place] [address]- 1187 Feb, [facility] [place] [facility] [address] [id number] [place] [address]- 4812 Feb, [facility] [place] [facility] [address] [id number] [place] [address]- 1570 Feb, [facility] [place] [facility] [address] [id number] [place] [address]- 4509 Feb, [facility] [place] [facility] [address] [id number] [place] [address]- 9684 Feb, [facility] [place] [facility] [address] [id number] [place] [address]- 4644 Feb, [facility] [place] [facility] [address] [id number] [place] [address]- 7062 Feb, [facility] [place] [facility] [address] [id number] [place] [address]- 7180 Feb, [facility] [place] [facility] [address] [id number] [place] [address]- 8998 Feb, [facility] [place] [facility] [address] [id number] [place] [address]- 7181 Feb, [facility] [place] [facility] [address] [id number] [place] [address]- 0345 Feb, [facility] [place] [facility] [address] [id number] [place] [address]- 6540 Feb, [facility] [place] [facility] [address] [id number] [place] [address]- 9328 Feb, [facility] [place] [facility] [address] [id number] [place] [address]- 5407 Jan, [facility] [place] [facility] [address] [id number] [place] [address]- 4648 Jan, [facility] [place] [facility] [address] [id number] [place] [address]- 9955 Jan, [facility] [place] [facility] [address] [id number] [place] [address]- 5892 Jan, [facility] [place] [facility] [address] [id number] [place] [address]- 2997 Jan, [facility] [place] [facility] [address] [id number] [place] [address]- 3979 Jan, [facility] [place] [facility] [address] [id number] [place] [address]- 2894 Jan, [facility] [place] [facility] [address] [id number] [place] [address]- 3189 Jan, [facility] [place] [facility] [address] [id number] [place] [address]- 1244 Dec, [facility] [place] [facility] [address] [id number] [place] [address]- 4739 Dec, [facility] [place] [facility] [address] [id number] [place] [address]- 3040 Dec, [facility] [place] [facility] [address] [id number] [place] [address]- 3533 Dec, [facility] [place] [facility] [address] [id number] [place] [address]- 6658 Dec, [facility] [place] [facility] [address] [id number] [place] [address]- 8523 Dec, [facility] [place] [facility] [address] [id number] [place] [address]- 6365 November, [facility] [place] [facility] [address] [id number] [place] [address]- 8120 November, [facility] [place] [facility] [address] [id number] [place] [address]- 7728 November, [facility] [place] [facility] [address] [id number] [place] [address]- 2607 November, [facility] [place] [facility] [address] [id number] [address]- 8947 Oct, [facility] [place] [facility] [address] [id number] [place] [address]- 5836 Oct, [facility] [place] [facility] [address] [id number] [place] [address]- 4851 Sep, [facility] [place] [facility] [address] [id number] [place] [address]- 8454 Sep, [facility] [place] [facility] [address] [id number] [place] [address]- 1688 Sep, [facility] [place] [facility] [address] [id number] [place] [address]- 0628 Sep, [facility] [place] [facility] [address] [id number] [place] [address]- 5666 Sep, [facility] [place] [facility] [address] [id number] [place] [address]- 3348 Sep, [facility] [place] [facility] [address] [id number] [place] [address]- 9260 Sep, [facility] [place] [facility] [address] [id number] [place] [address]- 5484 Sep, [facility] [place] [facility] [address] [id number] [place] [address]- 2662 Aug, [facility] [place] [facility] [address] [facility] [id number] [place] [address]- 1143 Aug, [facility] [place] [facility] [address] [id number] [place] [address]- 8147 Aug, [facility] [place] [facility] [address] [facility] [id number] [place] [address]- 7056 Aug, [facility] [place] [facility] [address] [facility] [id number] [place] [address]- 4716 Aug, [facility] [place] [facility] [address] [facility] [id number] [place] [address]- 1147 Aug, [facility] [place] [facility] [address] [id number] [place] [address]- 2543 Aug, [facility] [place] [facility] [address] [id number] [place] [address]- 7258 Aug, [facility] [place] [facility] [address] [facility] [id number] [place] [address]- 3423 Jul, [facility] [place] [facility] [address] [id number] [place] [address]- 9541 Jul, [facility] [place] [facility] [address] [id number] [place] [address]- 4362 Jul, [facility] [place] [facility] [address] [id number] [place] [address]- 8186 Jul, [facility] [place] [facility] [address] [facility] [id number] [place] [address]- 8537 Jul, [facility] [place] [facility] [address] [id number] [place] [address]- 5077 Jul, [facility] [place] [facility] [address] [id number] [place] [address]- 6720 Jul, [facility] [place] [facility] [address] [id number] [place] [address]- 8536 Jul, [facility] [place] [facility] [address] [id number] [place] [address]- 5359 Jun, [facility] [place] [facility] [address] [id number], [place] [address] Jun, [facility] [place] [facility] [address] [id number] [place] [address] Jun, [facility] [place] [facility] [address] [id number] [place] [address] Jun, [facility] [place] [facility] [address] [id number], [place] [address] May, [facility] [place] [facility] [address] [id number], [place] [address] May, [facility] [place] [facility] [address] [id number] [place] [address] May, [facility] [place] [facility] [address] [id number], [place] [address] May, [facility] [place] [facility] [address] [id number], [place] [address] May, [facility] [place] [facility] [address] [id number] [place] [address] May, [facility] [place] [facility] [address] [id number] [place] [address] [address] May, [facility] [place] [facility] [address] [id number] [place] [address] May, [facility] [place] [facility] [address] [id number] [place] [address] Apr, [facility] [place] [facility] [address] [id number] [place] [address] Apr, [facility] [place] [facility] [address] [id number] [place] [address] Apr, [facility] [place] [facility] [address] [id number] [place] [address] Apr, [facility] [place] [facility] [address] [id number] [place] [address] Apr, [facility] [place] [facility] [address] [id number] [place] [address] Apr, [facility] [place] [facility] [address] [id number] [place] [address] Apr, [facility] [place] [facility] [address] [id number] [place] [address] Apr, [facility] [place] [facility] [address] [id number] [place] [address] Apr, [facility] [place] [facility] [address] [id number] [place] [address] Apr, [facility] [place] [facility] [address] [id number] [place] Apr, [facility] [place] [facility] [address] [id number] [place] [address] Mar, [facility] [place] [facility] [address] [id number] [place] [address] Feb, [facility] [place] [facility] [address] [id number] [place] [address] Feb, [facility] [address] [id number] [place] [address] Feb, [facility] [address] [id number] [place] [address] Jan, [facility] [address] [id number] [place] [address] Dec, [facility] [address] [id number] [place] [address] Dec, [facility] [address] [id number] [place] [address] Dec, [facility] [address] [id number] [place] [address] November, [facility] [address] [id number] [place] [address] November, [facility] [address] [id number] [place] [address] November, [facility] [address] [id number] [place] [address] Oct, [facility] [address] [id number] [place] [address] Oct, [facility] [address] [id number] [place] [address] Oct, [facility] [address] [id number] [place] [address] 15 Sep, 2012 [facility] [place] [facility] [address] [id number] [place] [address] 05 Sep, 2012 [facility] [address] [id number] [place] [address] 04 Sep, 2012 [facility] [address] [id number] [address] Aug, [facility] [address] [id number] [place] [address] Jul, [facility] [place] [facility] [address] [id number] [place] [address] Jul, [facility] [place] [facility] [address] [id number] [place] [address] Jun, [facility] [place] [facility] [address] [id number] [place] [address] Jun, [facility] [place] [facility] [address] [id number] [place] [address] May, [facility] [place] [facility] [address] [id number] [place] [address] May, [facility] [place] [facility] [address] [id number] [place] [address] May, [facility] [place] [facility] [address] [id number] [place] [address] May, [facility] [place] [facility] [address] [id number] [place] [address] May, [facility] [place] [facility] [address] [id number] [place] [address] May, [facility] [place] [facility] [address] [id number] [address] Apr, [facility] [place] [facility] [address] [id number][place] [address] Feb, [facility] [place] [facility] [address] [id number] [place] [address] Dec, [facility] [place] [facility] [address] [id number] [place] [address] November, [facility] [place] [facility] [address] [id number] [place] [address] Oct, [facility] [place] [facility] [address] [id number] [place] [address] 13 Oct, 2011 [facility] [address] [id number] [place] [address] 12 Oct, 2011 [facility] [place] [facility] [address] [id number] [place] [address] 20 Sep, 2011 [facility] [place] [facility] [address] [id number] [place] [address] 14 Sep, 2011 [facility] [place] [facility] [address] [id number] [place] [address] 15 Aug, 2011 [facility] [place] [facility] [address] [id number] [place] [address] Jul, [facility] [place] [facility] [address] [id number] [place] [address] Jul, [facility] [address] [id number] [place] [address] Jun, [facility] [address] [id number] [place] [address] Jun, [facility] [place] [facility] [address] [id number] [place] [address] May, [facility] [place] [facility] [address] [facility] [id number] [place] [address] 16 May, 2011 [facility] [place] [facility] [address] [id number] [place] [address] 27 Apr, 2011 [facility] [place] [facility] [address] [id number] [place] [address] Mar, [facility] [place] [facility] [address] [id number] [place] [address] 20 Jan, 2011 [facility] [place] [facility] [address] [id number] [place] [address] Dec, [facility] [place] [facility] [address] [id number] [place] [address] Jun, [facility] [address] [facility] [id number] [place] [address] Jun, [facility] [address] [facility] [id number], [place] [address] May, [facility] [address] [facility] [id number] [place] [address] 10 May, 2010 IMMUNIZATIONS No Known Immunizations SOCIAL HISTORY Never Assessed REASON FOR VISIT f/u PLAN OF CARE Activity Details Follow Up 2 Weeks Reason:depression & anxiety VITAL SIGNS MEDICATIONS Unknown Medications RESULTS No Results PROCEDURES Procedure Date Ordered Result Body Site [facility] VISIT MENTAL HEALTH ESTAB PT Mar 09, 2018 Psychotherapy, patient &/family, 30 minutes, established patient Mar 09, 2018 INSTRUCTIONS MEDICATIONS ADMINISTERED No Known Medications [...] 05/19/17 Hospitalization History UTI - Hospital ED [facility] 05/31/17 Hospitalization History UTI 08-06-17
--- OUTSIDE RECORDS SUMMARY | 2018-11-19 07:31 | XMS REPORT ---
Author Author RYNE CAMP [facility] Address [address] [place] [address] Care Team Providers Care Cargo Trimmer Name Role Phone RYNE CAMP Unavailable PROBLEMS Type Condition ICD9-CM Code [id number] Code Onset Dates Condition Status SNOMED Code Problem Bipolar affective disorder in remission F31.70 Active 59115109 Problem Bipolar disorder, current episode depressed, moderate F31.32 Active 916987255 Problem Generalized anxiety disorder F41.1 Active [id number] ALLERGIES No Information ENCOUNTERS Encounter Location Date Diagnosis [place] [id number] [place] [address] 77314- 0497 May, [facility] [id number] [place] [address] 44599- 8946 Apr, Bipolar affective disorder in remission F31.70 and Generalized anxiety disorder F41.1 [place] [address] [id number] [place] [address] 36011- 0323 Mar, Bipolar disorder, current episode depressed, moderate F31.32 and Generalized anxiety disorder F41.1 [place] [id number] [place] [address] 20341- 4387 Mar, Bipolar disorder, current episode depressed, moderate F31.32 and Generalized anxiety disorder F41.1 [facility] [id number] [place] [address] 50588- 6352 Feb, [facility] [id number] [place] [address] 90348- 6447 Jan, Bipolar disorder, current episode depressed, moderate F31.32 and Generalized anxiety disorder F41.1 [place] [id number] [place] [address] 17424- 8688 Jan, Bipolar disorder, current episode depressed, moderate F31.32 and Generalized anxiety disorder F41.1 [facility] [id number] [address] 5829 Jan, Bipolar disorder, current episode depressed, moderate F31.32 [facility] [id number] [place] [address] 92405- 0740 Jan, Bipolar disorder, current episode depressed, moderate F31.32 [facility] [id number] [place] [address] 05556- 5041 Jan, Bipolar disorder, current episode depressed, moderate F31.32 and Generalized anxiety disorder F41.1 [place] [address] [place] [id number] [place] [address] 96777- 4764 Dec, Bipolar disorder, current episode depressed, moderate F31.32 and Generalized anxiety disorder F41.1 [place] [address] [place] [id number] [place] [address] 69825- 5163 November, Bipolar disorder, current episode depressed, moderate F31.32 and Generalized anxiety disorder F41.1 [facility] [id number] [place] [address] 58288- 1438 November, Bipolar disorder, current episode depressed, moderate F31.32 and Generalized anxiety disorder F41.1 [facility] [id number] [place] [address] 86656- 5444 Oct, Bipolar disorder, current episode depressed, moderate F31.32 and Generalized anxiety disorder F41.1 [facility] [id number] [place] [address] 81169- 3135 Oct, Bipolar disorder, current episode depressed, moderate F31.32 and Generalized anxiety disorder F41.1 [facility] [id number] [place] [address] 07889- 1526 Oct, Bipolar disorder, current episode depressed, moderate F31.32 [facility] [id number] [address]- 9089 Oct, Bipolar disorder, current episode depressed, moderate F31.32 and Generalized anxiety disorder F41.1 [facility] [id number] [place] [address] 15558- 3111 Sep, Bipolar disorder, current episode depressed, moderate F31.32 and Generalized anxiety disorder F41.1 [facility] [id number] [place] [address] 27484- 2027 Aug, Bipolar disorder, current episode depressed, moderate F31.32 [place] [address] [place] [id number] [place] [address] 84422- 8596 Aug, Bipolar disorder, current episode depressed, moderate F31.32 and Generalized anxiety disorder F41.1 [place] [address] [place] [id number] [place] [address] 50484- 7860 Jul, Bipolar disorder, current episode depressed, moderate F31.32 and Generalized anxiety disorder F41.1 [place] [address] [place] [id number] [place] [address] 82116- 6277 Jul, Bipolar disorder, current episode depressed, moderate F31.32 and High risk medication use Z79.899 [place] [address] [place] [id number] [place] [address] 38829- 8317 Jul, Generalized anxiety disorder F41.1 and Bipolar disorder, current episode depressed, moderate F31.32 [place] [id number] [place] [address] 65979- 6753 Feb, Bipolar disorder, current episode depressed, moderate F31.32 and Generalized anxiety disorder F41.1 [place] [id number] [place] [address] 07809- 1709 November, Bipolar disorder, current episode depressed, moderate F31.32 and Generalized anxiety disorder F41.1 [place] [address] [place] [id number] [place] [address] 92731- 1943 Aug, Bipolar disorder, current episode depressed, moderate F31.32 and Generalized anxiety disorder F41.1 [place] [id number] [place] [address] 42274- 7692 Aug, [facility] [address], [place] [address]8027 Aug, Dysuria R30.0 and Acute cystitis with hematuria N30.01 [facility] [address], [place] [address]- 6894 Aug, Dysuria R30.0 [facility] [address] [address] [id number] [place] [address] 89765- 3489 Aug, Bipolar disorder, current episode depressed, moderate F31.32 and Generalized anxiety disorder F41.1 [facility] [address] [place] [id number] [place] [address] 59348- 8110 Jul, Bipolar disorder, current episode depressed, moderate F31.32 and Generalized anxiety disorder F41.1 [facility] [address] [id number] [place] [address] 40668- 9652 May, Generalized anxiety disorder F41.1 and Bipolar disorder, current episode depressed, moderate F31.32 [facility] [address] [id number] [place] [address] 53513- 0028 May, Bipolar disorder, current episode depressed, moderate F31.32 and Generalized anxiety disorder F41.1 [facility] [id number] [place] [address] 32535- 1556 Apr, [facility] [id number] [place] [address] 66587- 9273 Apr, [facility] [address] [id number] [place] [address] 04015- 6604 Apr, Bipolar disorder, current episode depressed, moderate F31.32 and Generalized anxiety disorder F41.1 [facility] [address] [id number] [place] [address] 46878- 6344 Apr, [facility] [id number] [place] [address] 66772- 5908 Apr, Adjustment disorder with mixed anxiety and depressed mood F43.23 [facility] [id number], [place] [address]- 1670 Mar, Bipolar disorder, current episode depressed, moderate F31.32 and Generalized anxiety disorder F41.1 [facility] [id number], [place] [address]- 3636 Feb, Bipolar disorder, current episode depressed, moderate F31.32 and Generalized anxiety disorder F41.1 [facility] [address] [id number] [place] [address] 86093- 4341 Feb, [facility] [address] [place] [id number] [place] [address] 00340- 4749 Feb, Bipolar disorder, current episode depressed, moderate F31.32 and Generalized anxiety disorder F41.1 [place] [id number] [place] [address] 57641- 8747 Feb, Generalized anxiety disorder F41.1 and Bipolar disorder, current episode depressed, moderate F31.32 [facility] [address], [place] [address]- 0412 Jan, Bipolar disorder, current episode depressed, moderate F31.32 and Generalized anxiety disorder F41.1 [place] [id number] [place] [address] 36038- 6997 Jan, Bipolar disorder, current episode depressed, moderate F31.32 and Generalized anxiety disorder F41.1 [facility] [address], [place] [address]- 9099 Dec, Generalized anxiety disorder F41.1 and Bipolar disorder, current episode depressed, moderate F31.32 [facility] [address] [place] [id number] [place] [address] 55413- 0332 Dec, Bipolar disorder, current episode depressed, moderate F31.32 and Generalized anxiety disorder F41.1 [facility] [id number], [place] [address]- 3446 November, Bipolar disorder, current episode depressed, moderate F31.32 and Generalized anxiety disorder F41.1 [facility] [address] [place] [id number] [place] [address] 81822- 1579 November, Bipolar disorder, current episode depressed, moderate F31.32 and Generalized anxiety disorder F41.1 [facility] [address] [id number] [place] [address] 83187- 2399 November, Generalized anxiety disorder F41.1 and Bipolar disorder, 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 [facility] [address] [place] [id number] [place] [address] 55602- 7206 Oct, Bipolar disorder, current episode depressed, moderate F31.32 and Generalized anxiety disorder F41.1 [place] [address] [place] [id number] [place] [address] 51248- 0408 Oct, Bipolar disorder, current episode depressed, moderate F31.32 and Generalized anxiety disorder F41.1 [place] [address] [place] [id number] [place] [address] 28100- 8266 Oct, Bipolar disorder, current episode depressed, moderate F31.32 and Generalized anxiety disorder F41.1 [facility] [id number] [place] [address] 53699- 9625 Oct, Bipolar disorder, current episode depressed, moderate F31.32 and Generalized anxiety disorder F41.1 [facility] [id number] [place] [address] 50856- 8465 Sep, Bipolar disorder, current episode depressed, moderate F31.32 and Generalized anxiety disorder F41.1 [facility] [id number] [place] [address] 06112- 7088 24 Sep, 2015 Bipolar disorder, current episode depressed, moderate F31.32 and Generalized anxiety disorder F41.1 [facility] [address] [place] [id number] [place] [address] 05848- 1940 Sep, Bipolar disorder, current episode depressed, moderate F31.32 and Generalized anxiety disorder F41.1 [facility] [id number] [place] [address] 02579- 4526 07 Sep, 2015 [facility] [address], [place] [address]- 1257 Sep, Generalized anxiety disorder F41.1 and Bipolar disorder, current episode depressed, severe, without psychotic features F31.4 [facility] [id number] [place] [address] 74374- 2723 Aug, Bipolar disorder, 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 and Generalized anxiety disorder F41.1 [facility] [id number] [place] [address] 48945- 9682 Aug, Bipolar disorder, 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 and Generalized anxiety disorder F41.1 [facility] [address] [place] [id number] [place] [address] 62707- 9428 Jul, Bipolar disorder, 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 and Generalized anxiety disorder F41.1 [facility] [address] [place] [id number] [place] [address] 31080- 3811 Jul, Bipolar disorder, 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 and Generalized anxiety disorder F41.1 [facility] [id number] [place] [address] 09787- 1688 Jun, [facility] [id number] [place] [address] 54033- 4954 Jun, Bipolar disorder, 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 and Generalized anxiety disorder F41.1 [facility] [id number] [place] [address] 68558- 3720 Jun, Bipolar disorder, 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 and Generalized anxiety disorder F41.1 [facility] [address] [place] [id number] [place] [address] 76642- 8413 Jun, Generalized anxiety disorder F41.1 and Bipolar disorder, 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 [facility] [address] [place] [id number] [place] [address] 02028- 6349 May, Generalized anxiety disorder F41.1 and Bipolar disorder, current episode depressed, severe, without psychotic features F31.4 [facility] [address], [place] [address]- 3701 May, Bipolar disorder, 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 [facility] [id number] [place] [address] 59472- 4812 May, [facility] [id number] [place] [address] 09780- 3675 May, Bipolar disorder, unspecified F31.9 ; Generalized anxiety disorder F41.1 and Insomnia G47.00 [facility] [address] [id number] [place] [address] 59132- 3825 May, Bipolar disorder, current episode depressed, severe, without psychotic features F31.4 and Generalized anxiety disorder F41.1 [facility] [id number] [place] [address] 13966- 8480 May, [facility] [address] [id number] [place] [address] 47760- 7535 Apr, Bipolar disorder, current episode depressed, severe, without psychotic features F31.4 and Generalized anxiety disorder F41.1 [facility] [address] [place] [address] 36299- 4594 Apr, Bipolar disorder, current episode depressed, severe, without psychotic features F31.4 [facility] [address], [place] [address]- 5644 Apr, Bipolar disorder, current episode depressed, severe, without psychotic features F31.4 and Generalized anxiety disorder F41.1 [facility] [id number] [place] [address] 06462- 7374 14 Mar, 2015 Bipolar disorder, unspecified 296.80 [facility] [address] [id number] [place] [address] 88809- 0260 02 Mar, 2015 Bipolar disorder, unspecified 296.80 ; Generalized anxiety disorder 300.02 and Depression, major, recurrent 296.30 [facility] [id number] [place] [address] 66587- 6898 Feb, Bipolar disorder, unspecified 296.80 [facility] [address], [place] [address]- 6779 Jan, Bipolar disorder, unspecified 296.80 [facility] [address], [place] [address]- 2546 Dec, Bipolar disorder, unspecified 296.80 [facility] [id number] [place] [address] 20709- 7022 Dec, Bipolar disorder, unspecified 296.80 ; Major depressive disorder, recurrent episode, unspecified 296.30 and Generalized anxiety disorder 300.02 [facility] [id number] [place] [address] 02594- 8885 November, Bipolar disorder, unspecified 296.80 [facility] [address], [place] [address]- 0576 Oct, [facility] [id number] [place] [address] 21781- 1468 Oct, [facility] [address], [place] [address]- 4539 Sep, [facility] [address], [place] [address]- 7523 Sep, [facility] [address]- 4483 Jul, [facility] [address], [place] [address]- 4292 Jul, [facility] [address], [place] [address]- 2553 Jul, [facility] [address], [place] [address]- 5436 Jul, [facility] [address], [place] [address]- 2526 Jul, [facility] [id number] [place] [address] 25577- 0389 Jul, [facility] [place] [facility] [address] [id number] [place] [address]- 6334 Jun, [facility] [place] [facility] [address] [id number] [place] [address]- 2982 Jun, [facility] [place] [facility] [address] [facility] [id number] [place] [address]- 6487 May, [facility] [place] [facility] [address] [id number] [place] [address]- 6951 May, [facility] [place] [facility] [address] [id number] [place] [address]- 0379 May, [facility] [place] [facility] [address] [id number] [place] [address]- 3944 May, [facility] [place] [facility] [address] [facility] [id number] [place] [address]- 2865 Apr, [facility] [place] [facility] [address] [id number] [place] [address]- 1081 Apr, [facility] [place] [facility] [address] [facility] [id number] [place] [address]- 0884 Mar, [facility] [place] [facility] [address] [facility] [id number] [place] [address]- 1961 Mar, [facility] [place] [facility] [address] [id number] [place] [address]- 1692 Feb, [facility] [place] [facility] [address] [id number] [address]- 1103 Feb, [facility] [place] [facility] [address] [id number] [place] [address]- 5109 Feb, [facility] [place] [facility] [address] [facility] [id number] [place] [address]- 4893 Feb, [facility] [place] [facility] [address] [facility] [id number] [place] [address]- 4367 Feb, [facility] [place] [facility] [address] [id number] [place] [address]- 7553 Feb, [facility] [place] [facility] [address] [id number] [facility] [place] [address]- 6467 Feb, [facility] [place] [facility] [address] [id number] [place] [address]- 4766 Feb, [facility] [place] [facility] [address] [id number] [place] [address]- 4807 Feb, [facility] [place] [facility] [address] [id number] [place] [address]- 8361 Feb, [facility] [place] [facility] [address] [id number] [place] [address]- 3789 Feb, [facility] [place] [facility] [address] [id number] [place] [address]- 7431 Feb, [facility] [place] [facility] [address] [id number] [place] [address]- 2469 Feb, [facility] [place] [facility] [address] [id number] [place] [address]- 9347 Feb, [facility] [place] [facility] [address] [id number] [place] [address]- 6045 Jan, [facility] [place] [facility] [address] [id number] [place] [address]- 3916 Jan, [facility] [place] [facility] [address] [id number] [place] [address]- 8962 Jan, [facility] [place] [facility] [address] [id number] [place] [address]- 0554 Jan, [facility] [place] [facility] [address] [id number] [place] [address]- 7814 Jan, [facility] [place] [facility] [address] [id number] [place] [address]- 1677 Jan, [facility] [place] [facility] [address] [id number] [place] [address]- 7184 Jan, [facility] [place] [facility] [address] [id number] [place] [address]- 6391 Jan, [facility] [place] [facility] [address] [id number] [place] [address]- 5400 Dec, [facility] [place] [facility] [address] [id number] [place] [address]- 6664 Dec, [facility] [place] [facility] [address] [id number] [place] [address]- 8379 Dec, [facility] [place] [facility] [address] [id number] [place] [address]- 6146 Dec, [facility] [place] [facility] [address] [id number] [place] [address]- 3465 Dec, [facility] [place] [facility] [address] [id number] [place] [address]- 9269 Dec, [facility] [place] [facility] [address] [id number] [place] [address]- 0723 November, [facility] [place] [facility] [address] [id number] [place] [address]- 8948 November, [facility] [place] [facility] [address] [id number] [place] [address]- 1325 November, [facility] [place] [facility] [address] [id number] [place] [address]- 6340 November, [facility] [place] [facility] [address] [id number] [place] [address]- 1756 Oct, [facility] [place] [facility] [address] [id number] [place] [address]- 9457 Oct, [facility] [place] [facility] [address] [id number] [place] [address]- 9197 Sep, [facility] [place] [facility] [address] [id number] [place] [address]- 2903 Sep, [facility] [place] [facility] [address] [id number] [place] [address]- 3382 Sep, [facility] [place] [facility] [address] [id number] [place] [address]- 2535 Sep, [facility] [place] [facility] [address] [id number] [place] [address]- 8056 Sep, [facility] [place] [facility] [address] [id number] [place] [address]- 7830 Sep, [facility] [place] [facility] [address] [id number] [place] [address]- 4520 Sep, [facility] [place] [facility] [address] [id number] [place] [address]- 3714 Sep, [facility] [place] [facility] [address] [id number] [place] [address]- 0717 Aug, [facility] [place] [facility] [address] [id number] [place] [address]- 6680 Aug, [facility] [place] [facility] [address] [id number] [place] [address]- 7459 Aug, [facility] [place] [facility] [address] [id number] [place] [address]- 4196 Aug, [facility] [place] [facility] [address] [facility] [id number] [place] [address]- 6395 Aug, [facility] [place] [facility] [address] [facility] [id number] [place] [address]- 4748 Aug, [facility] [place] [facility] [address] [id number] [place] [address]- 2545 Aug, [facility] [place] [facility] [address] [id number] [place] Aug, [facility] [place] [facility] [address] [facility] [id number] [place] [address] Jul, [facility] [place] [facility] [address] [id number] [place] [address] Jul, [facility] [place] [facility] [address] [id number] [place] [address] Jul, [facility] [place] [facility] [address] [id number] [place] [address] Jul, [facility] [place] [facility] [address] [id number] [place] [address] Jul, [facility] [place] [facility] [address] [id number] [place] [address] Jul, [facility] [place] [facility] [address] [id number] [place] [address] Jul, [facility] [place] [facility] [address] [id number] [place] [address] Jul, [facility] [place] [facility] [address] [id number] [place] [address] Jun, [facility] [place] [facility] [address] [id number] [place] [address] Jun, [facility] [place] [facility] [address] [id number] [place] [address] Jun, [facility] [place] [facility] [address] [id number] [place] [address] Jun, [facility] [place] [facility] [address] [id number], [place] [address] May, [facility] [place] [facility] [address] [id number], [place] [address] May, [facility] [place] [facility] [address] [id number] [place] [address] May, [facility] [place] [facility] [address] [id number], [place] [address] May, [facility] [place] [facility] [address] [id number], [place] [address] May, [facility] [place] [facility] [address] [id number] [place] [address]- 7823 May, [facility] [place] [facility] [address] [id number] [place] [address] May, [facility] [place] [facility] [address] [id number] [place] [address] May, [facility] [place] [facility] [address] [id number] [place] [address] Apr, [facility] [place] [facility] [address] [id number] [place] [address] Apr, [facility] [place] [facility] [address] [id number] [place] [address] Apr, [facility] [place] [facility] [address] [id number] [place] [address] Apr, [facility] [place] [facility] [address] [id number] [place] [address] Apr, [facility] [place] [facility] [address] [id number] [place] [address] Apr, [facility] [place] [facility] [address] [id number] [place] [address] Apr, [facility] [place] [facility] [address] [id number] [place] [address] 137[address] Apr, [facility] [place] [facility] [address] [id number] [place] [address]70 Apr, [facility] [place] [facility] [address] [id number] [place] [address] Apr, [facility] [place] [facility] [address] [id number] [place] [address] Apr, [facility] [place] [facility] [address] [id number] [place] [address] Mar, [facility] [place] [facility] [address] [id number] [place] [address] Feb, [facility] [place] [facility] [address] [id number] [place] [address] Feb, [facility] [address] [id number] [place] [address] Feb, [facility] [address] [id number] [place] [address] Jan, [facility] [address] [id number] [place] [address] Dec, [facility] [address] [id number] [place] [address] Dec, [facility] [address] [id number] [place] [address] Dec, [facility] [address] [id number] [place] [address] November, [facility] [address] [id number] [place] [address] November, [facility] [address] [id number] [place] [address] November, [facility] [address] [id number] [place] [address] Oct, [facility] [address] [id number] [place] [address] Oct, [facility] [address] [id number] [place] [address] 1991 Oct, [facility] [address] [id number] [place] [address] 15 Sep, 2012 [facility] [place] [facility] [address] [id number] [place] [address] 05 Sep, [address] [facility] [address] [id number] [place] [address] 04 Sep, 2012 [facility] [address] [id number] [place] [address] Aug, [facility] [place] [facility] [address] [id number] [place] [address] 8865 Jul, [facility] [place] [facility] [address] [id number] [place] [address] 295[address] Jul, [facility] [place] [facility] [address] [id number] [place] [address] Jun, [facility] [place] [facility] [address] [id number] [place] [address] 1541 Jun, [facility] [place] [facility] [address] [id number] [place] [address]671 May, [facility] [place] [facility] [address] [id number] [place] [address] May, [facility] [place] [facility] [address] [id number] [place] [address] May, [facility] [place] [facility] [address] [id number] [place] [address] 4064 May, [facility] [place] [facility] [address] [id number] [place] [address] 7817 May, [facility] [place] [facility] [address] [id number] [place] [address] 7916 May, [facility] [place] [facility] [address] [id number], [place] [address] Apr, [facility] [place] [facility] [address] [id number] [place] [address] 1456 Feb, [facility] [place] [facility] [address] [id number] [place] [address] 1505 Dec, [facility] [place] [facility] [address] [id number] [place] [address] November, [facility] [place] [facility] [address] [id number] [place] [address] 3925 Oct, [facility] [place] [facility] [address] [id number] [place] [address] 13 Oct, 2011 [facility] [address] [id number] [place] [address] 12 Oct, 2011 [facility] [place] [facility] [address] [id number] [place] [address]46 20 Sep, 2011 [facility] [address] [id number] [place] [address] 14 Sep, 2011 [facility] [place] [facility] [address] [id number] [place] [address] 15 Aug, 2011 [facility] [address] [id number] [place] [address]- [address]56 24 Jul, 2011 [facility] [address] [id number] [place] [address] Jul, [facility] [address] [id number] [place] [address] Jun, [facility] [address] [id number] [place] [address] Jun, [facility] [address] [id number] [place] [address] 9567 May, [facility] [address] [id number] [place] [address]78 16 May, 2011 [facility] [address] [id number] [place] [address] 27 Apr, 2011 [facility] [address] [id number] [place] [address] 1456 Mar, [facility] [place] [facility] [address] [id number] [place] [address] 20 Jan, 2011 [facility] [place] [facility] [address] [id number] [place] [address] Dec, [facility] [place] [facility] [address] [id number] [place] [address] Jun, [facility] [address] [facility] [id number] [place] [address] Jun, [facility] [address] [facility] [id number], [place] [address] May, [facility] [address] [facility] [id number] [place] [address] 10 May, 2010 IMMUNIZATIONS No Known Immunizations SOCIAL HISTORY Never Assessed REASON FOR VISIT f/u PLAN OF CARE Activity Details Follow Up prn Reason: VITAL SIGNS MEDICATIONS Unknown Medications RESULTS No Results PROCEDURES Procedure Date Ordered Result Body Site [facility] VISIT MENTAL HEALTH ESTAB PT Apr 14, 2018 Psychotherapy, patient &/family, 30 minutes, established patient Apr 14, 2018 INSTRUCTIONS MEDICATIONS ADMINISTERED No Known Medications [...] 05/19/17 Hospitalization History UTI - Hospital ED [facility] 05/31/17 Hospitalization History UTI 08-06-17
--- OUTSIDE RECORDS SUMMARY | 2018-11-19 07:32 | XMS REPORT ---
Author Author RYNE CAMP Organization [facility] Address [address] [place] [address] Care Team Providers Care Lab Manager Name Role Phone RYNE CAMP Unavailable PROBLEMS Type Condition ICD9-CM Code NIV73-FD Code Onset Dates Condition Status SNOMED Code Problem Bipolar disorder, current episode depressed, moderate F31.32 Active 252547875 Problem Generalized anxiety disorder F41.1 Active [id number] ALLERGIES No Information ENCOUNTERS Encounter Location Date Diagnosis [place] [id number] [place] [address] 68818- 9782 May, [place] [id number] [place] [address] 69617- 6529 Apr, [facility] [id number] [place] [address] 98637- 5579 Mar, [place] [id number] [place] [address] 16867- 8108 Mar, Bipolar disorder, current episode depressed, moderate F31.32 and Generalized anxiety disorder F41.1 [place] [id number] [place] [address] 02348- 3554 Feb, [facility] [id number] [place] [address] 33668- 4506 Jan, Bipolar disorder, current episode depressed, moderate F31.32 and Generalized anxiety disorder F41.1 [facility] [id number] [place] [address] 92091- 2135 Jan, Bipolar disorder, current episode depressed, moderate F31.32 and Generalized anxiety disorder F41.1 [place] [id number] [place] [address] 51553- 1871 Jan, Bipolar disorder, current episode depressed, moderate F31.32 [facility] [id number] [address] 2193 Jan, Bipolar disorder, current episode depressed, moderate F31.32 [facility] [id number] [place] [address] 72909- 8491 Jan, Bipolar disorder, current episode depressed, moderate F31.32 and Generalized anxiety disorder F41.1 [facility] [id number] [place] [address] 40734- 6571 Dec, Bipolar disorder, current episode depressed, moderate F31.32 and Generalized anxiety disorder F41.1 [place] [id number] [place] [address] 47956- 9620 November, Bipolar disorder, current episode depressed, moderate F31.32 and Generalized anxiety disorder F41.1 [place] [id number] [place] [address] 23099- 8304 November, Bipolar disorder, current episode depressed, moderate F31.32 and Generalized anxiety disorder F41.1 [facility] [id number] [place] [address] 48668- 7359 Oct, Bipolar disorder, current episode depressed, moderate F31.32 and Generalized anxiety disorder F41.1 [facility] [id number] [place] [address] 72525- 1571 Oct, Bipolar disorder, current episode depressed, moderate F31.32 and Generalized anxiety disorder F41.1 [facility] [address] [address]- 2207 Oct, Bipolar disorder, current episode depressed, moderate F31.32 [facility] [id number] [place] [address] 32273- 7646 Oct, Bipolar disorder, current episode depressed, moderate F31.32 and Generalized anxiety disorder F41.1 [facility] [address] [address]- 2371 Sep, Bipolar disorder, current episode depressed, moderate F31.32 and Generalized anxiety disorder F41.1 [facility] [id number] [place] [address] 07023- 2925 Aug, Bipolar disorder, current episode depressed, moderate F31.32 [facility] [id number] [place] [address] 99089- 6908 Aug, Bipolar disorder, current episode depressed, moderate F31.32 and Generalized anxiety disorder F41.1 [place] [id number] [place] [address] 77811- 1361 Jul, Bipolar disorder, current episode depressed, moderate F31.32 and Generalized anxiety disorder F41.1 [place] [id number] [place] [address] 51577- 2372 Jul, Bipolar disorder, current episode depressed, moderate F31.32 and High risk medication use Z79.899 [place] [id number] [place] [address] 82058- 2140 Jul, Generalized anxiety disorder F41.1 and Bipolar disorder, current episode depressed, moderate F31.32 [place] [id number] [place] [address] 90161- 8549 Feb, Bipolar disorder, current episode depressed, moderate F31.32 and Generalized anxiety disorder F41.1 [place] [id number] [place] [address] 67504- 5949 November, Bipolar disorder, current episode depressed, moderate F31.32 and Generalized anxiety disorder F41.1 [facility] [address] [place] [address] 68216- 5055 Aug, Bipolar disorder, current episode depressed, moderate F31.32 and Generalized anxiety disorder F41.1 [facility] [id number] [place] [address] 98994- 5889 Aug, [facility] [address] [place] [address] 41596 -6008 Aug, Dysuria R30.0 and Acute cystitis with hematuria N30.01 [facility] [id number] [place] [address] 43149- 1485 Aug, Dysuria R30.0 [facility] [id number] [place] [address] 71075- 5306 Aug, Bipolar disorder, current episode depressed, moderate F31.32 and Generalized anxiety disorder F41.1 [facility] [id number] [place] [address] 96756- 1490 Jul, Bipolar disorder, current episode depressed, moderate F31.32 and Generalized anxiety disorder F41.1 [place] [id number] [place] [address] 43484- 8988 May, Generalized anxiety disorder F41.1 and Bipolar disorder, current episode depressed, moderate F31.32 [place] [id number] [place] [address] 75205- 0218 May, Bipolar disorder, current episode depressed, moderate F31.32 and Generalized anxiety disorder F41.1 [place] [id number] [place] [address] 00456- 8604 Apr, [facility] [id number] [place] [address] 29776- 2256 Apr, [facility] [id number] [place] [address] 96987- 7690 Apr, Bipolar disorder, current episode depressed, moderate F31.32 and Generalized anxiety disorder F41.1 [facility] [id number] [place] [address] 01977- 1247 Apr, [facility] [id number] [place] [address] 80043- 1894 Apr, Adjustment disorder with mixed anxiety and depressed mood F43.23 [facility] [id number] [place] [address] 52758- 2444 Mar, Bipolar disorder, current episode depressed, moderate F31.32 and Generalized anxiety disorder F41.1 [facility] [address] [facility] [id number] [address]- 0170 Feb, Bipolar disorder, current episode depressed, moderate F31.32 and Generalized anxiety disorder F41.1 [facility] [address] [id number] [address]- 4561 Feb, [facility] [id number] [place] [address] 67200- 5167 Feb, Bipolar disorder, current episode depressed, moderate F31.32 and Generalized anxiety disorder F41.1 [facility] [address] [facility] [id number] [address]- 2433 Feb, Generalized anxiety disorder F41.1 and Bipolar disorder, current episode depressed, moderate F31.32 [place] [id number] [place] [address] 58779- 1553 Jan, Bipolar disorder, current episode depressed, moderate F31.32 and Generalized anxiety disorder F41.1 [facility] [id number], [place] [address]- 8743 Jan, Bipolar disorder, current episode depressed, moderate F31.32 and Generalized anxiety disorder F41.1 [place] [id number], [place] [address]- 0061 Dec, Generalized anxiety disorder F41.1 and Bipolar disorder, current episode depressed, moderate F31.32 [facility] [id number], [place] [address]- 9783 Dec, Bipolar disorder, current episode depressed, moderate F31.32 and Generalized anxiety disorder F41.1 [facility] [address] [facility] [id number], [place] [address]- 2200 November, Bipolar disorder, current episode depressed, moderate F31.32 and Generalized anxiety disorder F41.1 [facility] [address] [id number], [place] [address]- 3877 November, Bipolar disorder, current episode depressed, moderate F31.32 and Generalized anxiety disorder F41.1 [facility] [address] [place] [address] 86501- 9702 November, Generalized anxiety disorder F41.1 and Bipolar disorder, 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 [facility] [id number] [place] [address] 87176- 6377 Oct, Bipolar disorder, current episode depressed, moderate F31.32 and Generalized anxiety disorder F41.1 [facility] [id number] [place] [address] 20909- 9540 Oct, Bipolar disorder, current episode depressed, moderate F31.32 and Generalized anxiety disorder F41.1 [place] [id number] [place] [address] 99634- 4201 Oct, Bipolar disorder, current episode depressed, moderate F31.32 and Generalized anxiety disorder F41.1 [place] [id number] [place] [address] 86473- 2278 Oct, Bipolar disorder, current episode depressed, moderate F31.32 and Generalized anxiety disorder F41.1 [facility] [id number] [place] [address] 24852- 3420 Sep, Bipolar disorder, current episode depressed, moderate F31.32 and Generalized anxiety disorder F41.1 [facility] [id number] [place] [address] 70820- 7576 Sep, Bipolar disorder, current episode depressed, moderate F31.32 and Generalized anxiety disorder F41.1 [facility] [id number] [place] [address] 01973- 6507 Sep, Bipolar disorder, current episode depressed, moderate F31.32 and Generalized anxiety disorder F41.1 [facility] [id number] [place] [address] 45545- 4278 Sep, [facility] [id number] [place] [address] 63266- 5192 07 Sep, 2015 Generalized anxiety disorder F41.1 and Bipolar disorder, current episode depressed, severe, without psychotic features F31.4 [facility] [address], [place] [address]- 6094 Aug, Bipolar disorder, 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 and Generalized anxiety disorder F41.1 [facility] [address] [place] [address] 36644- 3363 Aug, Bipolar disorder, 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 and Generalized anxiety disorder F41.1 [facility] [address] [place] [address] 35782- 2973 Jul, Bipolar disorder, 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 and Generalized anxiety disorder F41.1 [facility] [id number] [place] [address] 03026- 0112 Jul, Bipolar disorder, 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 and Generalized anxiety disorder F41.1 [place] [id number] [place] [address] 01308- 4150 Jun, [facility] [address] [place] [address] 72807- 8362 Jun, Bipolar disorder, 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 and Generalized anxiety disorder F41.1 [facility] [address] [place] [address] 27563- 6815 Jun, Bipolar disorder, 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 and Generalized anxiety disorder F41.1 [facility] [address] [place] [address] 22234- 4520 Jun, Generalized anxiety disorder F41.1 and Bipolar disorder, 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 [facility] [address] [place] [address] 15022- 2347 May, Generalized anxiety disorder F41.1 and Bipolar disorder, current episode depressed, severe, without psychotic features F31.4 [facility] [address], [place] [address]- 9427 May, Bipolar disorder, 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 [facility] [address], [place] [address]- 7716 May, [place] [id number] [place] [address] 90181- 7658 May, Bipolar disorder, unspecified F31.9 ; Generalized anxiety disorder F41.1 and Insomnia G47.00 [place] [id number] [place] [address] 16359- 6992 May, Bipolar disorder, current episode depressed, severe, without psychotic features F31.4 and Generalized anxiety disorder F41.1 [place] [id number] [place] [address] 12590- 5217 May, [place] [id number] [place] [address] 88048- 6964 Apr, Bipolar disorder, current episode depressed, severe, without psychotic features F31.4 and Generalized anxiety disorder F41.1 [place] [id number] [place] [address] 51528- 4718 Apr, Bipolar disorder, current episode depressed, severe, without psychotic features F31.4 [place] [id number] [place] [address] 85286- 5665 Apr, Bipolar disorder, current episode depressed, severe, without psychotic features F31.4 and Generalized anxiety disorder F41.1 [place] [id number] [place] [address] 00729- 6936 Mar, Bipolar disorder, unspecified 296.80 [place] [id number] [place] [address] 90979- 9907 Mar, Bipolar disorder, unspecified 296.80 ; Generalized anxiety disorder 300.02 and Depression, major, recurrent 296.30 [place] [id number] [place] [address] 41470- 1528 Feb, Bipolar disorder, unspecified 296.80 [place] [id number] [place] [address] 52165- 8416 Jan, Bipolar disorder, unspecified 296.80 [facility] [id number], [place] [address]- 9712 Dec, Bipolar disorder, unspecified 296.80 [facility] [address], [place] [address]- 1256 Dec, Bipolar disorder, unspecified 296.80 ; Major depressive disorder, recurrent episode, unspecified 296.30 and Generalized anxiety disorder 300.02 [facility] [address], [place] [address]- 8408 November, Bipolar disorder, unspecified 296.80 [facility] [address], [place] [address]- 5790 Oct, [facility] [address], [place] [address]- 2020 Oct, [facility] [address], [place] [address]- 5847 Sep, [facility] [address], [place] [address]- 5336 Sep, [facility] [address], [place] [address]- 4201 Jul, [facility] [address], [place] [address]- 1998 Jul, [facility] [address], [place] [address]- 8690 Jul, [facility] [address], [place] [address]- 5153 Jul, [facility] [id number], [place] [address]- 0121 Jul, [facility] [address], [place] [address]- 7925 Jul, [facility] [id number], [place] [address]- 7875 Jun, [facility] [place] [facility] [address] [id number] [place] [address]- 6515 Jun, [facility] [place] [facility] [address] [id number] [place] [address]- 9369 May, [facility] [place] [facility] [address] [id number] [place] [address]- 4915 May, [facility] [place] [facility] [address] [id number] [place] [address]- 9668 May, [facility] [place] [facility] [address] [id number] [place] [address]- 7262 May, [facility] [place] [facility] [address] [id number] [place] [address]- 3276 Apr, [facility] [place] [facility] [address] [id number] [place] [address]- 9125 Apr, [facility] [place] [facility] [address] [id number] [place] [address]- 7620 Mar, [facility] [place] [facility] [address] [id number] [place] [address]- 4725 Mar, [facility] [place] [facility] [address] [id number] [place] [address]- 4382 Feb, [facility] [place] [facility] [address] [id number] [place] [address]- 4363 Feb, [facility] [place] [facility] [address] [id number] [place] [address]- 0204 Feb, [facility] [place] [facility] [address] [id number] [place] [address]- 2584 Feb, [facility] [place] [facility] [address] [id number] [place] [address]- 6903 Feb, [facility] [place] [facility] [address] [id number] [place] [address]- 0560 Feb, [facility] [place] [facility] [address] [id number] [place] [address]- 2772 Feb, [facility] [place] [facility] [address] [id number] [place] [address]- 3300 Feb, [facility] [place] [facility] [address] [id number] [place] [address]- 5915 Feb, [facility] [place] [facility] [address] [id number] [place] [address]- 1167 Feb, [facility] [place] [facility] [address] [id number] [place] [address]- 5268 Feb, [facility] [place] [facility] [address] [id number] [place] [address]- 3210 Feb, [facility] [place] [facility] [address] [id number] [place] [address]- 8944 Feb, [facility] [place] [facility] [address] [id number] [place] [address]- 4969 Feb, [facility] [place] [facility] [address] [id number] [place] [address]- 2220 Jan, [facility] [place] [facility] [address] [id number] [place] [address]- 4978 Jan, [facility] [place] [facility] [address] [id number] [place] [address]- 3716 Jan, [facility] [place] [facility] [address] [id number] [place] [address]- 6311 Jan, [facility] [place] [facility] [address] [id number] [place] [address]- 5469 Jan, [facility] [place] [facility] [address] [id number] [place] [address]- 1842 Jan, [facility] [place] [facility] [address] [id number] [place] [address]- 9563 Jan, [facility] [place] [facility] [address] [id number] [place] [address]- 2953 Jan, [facility] [place] [facility] [address] [id number] [place] [address]- 3469 Dec, [facility] [place] [facility] [address] [id number] [place] [address]- 8775 Dec, [facility] [place] [facility] [address] [id number] [place] [address]- 5711 Dec, [facility] [place] [facility] [address] [id number] [place] [address]- 8319 Dec, [facility] [place] [facility] [address] [id number] [place] [address]- 9101 Dec, [facility] [place] [facility] [address] [id number] [place] [address]- 9722 Dec, [facility] [place] [facility] [address] [id number] [place] [address]- 6684 November, [facility] [place] [facility] [address] [id number] [place] [address]- 5112 November, [facility] [place] [facility] [address] [id number] [place] [address]- 7412 November, [facility] [place] [facility] [address] [id number] [place] [address]- 0191 November, [facility] [place] [facility] [address] [id number] [place] [address]- 8012 Oct, [facility] [place] [facility] [address] [id number] [place] [address]- 7223 Oct, [facility] [place] [facility] [address] [id number] [place] [address]- 8425 Sep, [facility] [place] [facility] [address] [id number] [place] [address]- 2054 Sep, [facility] [place] [facility] [address] [id number] [place] [address]- 8916 Sep, [facility] [place] [facility] [address] [id number] [place] [address]- 7796 Sep, [facility] [place] [facility] [address] [id number] [place] [address]- 9755 Sep, [facility] [place] [facility] [address] [id number] [place] [address]- 2437 Sep, [facility] [place] [facility] [address] [id number] [place] [address]- 5673 Sep, [facility] [place] [facility] [address] [id number] [place] [address]- 8134 Sep, [facility] [place] [facility] [address] [id number] [place] [address]- 6411 Aug, [facility] [place] [facility] [address] [id number] [place] [address]- 9799 Aug, [facility] [place] [facility] [address] [id number] [place] [address]- 6201 Aug, [facility] [place] [facility] [address] [id number] [place] [address]- 6234 Aug, [facility] [place] [facility] [address] [id number] [place] [address]- 8368 Aug, [facility] [place] [facility] [address] [id number] [place] [address]- 8792 Aug, [facility] [place] [facility] [address] [id number] [place] [address]- 7538 Aug, [facility] [place] [facility] [address] [id number] [place] [address]- 4995 Aug, [facility] [place] [facility] [address] [id number] [place] [address]- 9440 Jul, [facility] [place] [facility] [address] [id number] [place] [address]- 8114 Jul, [facility] [place] [facility] [address] [id number] [place] [address]- 7278 Jul, [facility] [place] [facility] [address] [id number] [place] [address]- 7579 Jul, [facility] [address] [id number] [place] [address]- 1671 Jul, [facility] [place] [facility] [address] [id number] [place] [address]- 4396 Jul, [facility] [address] [id number] [place] 1634 Jul, [facility] [place] [facility] [address] [id number] [place] [address]- 3209 Jul, [facility] [address] [id number] [place] [address]- 2277 Jun, [facility] [place] [facility] [address] [id number] [place] [address]- 9823 Jun, [facility] [address] [id number] [place] [address]- 2515 Jun, [facility] [place] [facility] [address] [id number] [place] [address] Jun, [facility] [place] [facility] [address] [id number] [place] [address] May, [facility] [place] [facility] [address] [facility] [id number] [place] [address] May, [facility] [place] [facility] [address] [id number] [place] [address] May, [facility] [place] [facility] [address] [id number] [place] [address] May, [facility] [place] [facility] [address] [id number] [place] [address] May, [facility] [place] [facility] [address] [id number] [place] [address] May, [facility] [place] [facility] [address] [id number] [place] [address] May, [facility] [place] [facility] [address] [id number] [place] [address] May, [facility] [place] [facility] [address] [id number] [place] [address] Apr, [facility] [place] [facility] [address] [id number] [place] [address] Apr, [facility] [place] [facility] [address] [id number] [place] [address] Apr, [facility] [place] [facility] [address] [id number] [place] [address] Apr, [facility] [place] [facility] [address] [id number] [place] [address] Apr, [facility] [place] [facility] [address] [id number] [place] [address] Apr, [facility] [place] [facility] [address] [id number] [place] [address] Apr, [facility] [place] [facility] [address] [id number] [place] [address] Apr, [facility] [place] [facility] [address] [id number] [place] [address] Apr, [facility] [place] [facility] [address] [id number] [place] [address] Apr, [facility] [place] [facility] [address] [id number], [place] [address] Apr, [facility] [place] [facility] [address] [id number] [place] [address] Mar, [facility] [place] [facility] [address] [id number] [place] [address] Feb, [facility] [place] [facility] [address] [id number] [place] [address] Feb, [facility] [place] [facility] [address] [id number], [place] [address] Feb, [facility] [address] [id number] [place] [address] Jan, [facility] [place] [facility] [address] [id number] [place] [address] Dec, [facility] [place] [facility] [address] [id number] [place] [address] Dec, [facility] [place] [facility] [address] [id number] [place] [address] Dec, [facility] [address] [id number] [place] [address] November, [facility] [place] [facility] [address] [id number] [place] [address] November, [facility] [address] [id number] [place] [address] November, [facility] [place] [facility] [address] [id number] [place] [address] Oct, [facility] [address] [id number] [place] [address] Oct, [facility] [place] [facility] [address] [id number] [place] [address] Oct, [facility] [address] [id number] [place] [address] Sep, [facility] [place] [facility] [address] [id number] [place] [address] Sep, [facility] [place] [facility] [address] [id number] [place] [address] Sep, [facility] [place] [facility] [address] [id number] [place] [address] Aug, [facility] [place] [facility] [address] [id number] [place] [address] Jul, [facility] [place] [facility] [address] [id number] [place] [address] Jul, [facility] [place] [facility] [address] [id number] [place] [address] Jun, [facility] [place] [facility] [address] [id number] [place] [address] Jun, [facility] [place] [facility] [address] [id number] [place] [address] May, [facility] [place] [facility] [address] [id number] [place] [address] May, [facility] [place] [facility] [address] [id number] [place] [address] May, [facility] [place] [facility] [address] [id number] [place] [address] May, [facility] [place] [facility] [address] [id number] [place] [address] May, [facility] [place] [facility] [address] [id number] [place] [address] May, [facility] [place] [facility] [address] [id number] [place] [address] Apr, [facility] [place] [facility] [address] [id number] [place] [address] Feb, [facility] [place] [facility] [address] [id number] [place] [address] Dec, [facility] [place] [facility] [address] [id number] [place] [address] November, [facility] [place] [facility] [address] [id number] [place] [address] Oct, [facility] [place] [facility] [address] [id number] [place] [address] Oct, [facility] [place] [facility] [address] [id number] [place] [address] Oct, [facility] [place] [facility] [address] [id number] [place] [address] Sep, [facility] [place] [facility] [address] [id number] [place] [address] 14 Sep, 2011 [facility] [place] [facility] [address] [id number] [place] [address] 15 Aug, 2011 [facility] [place] [facility] [address] [id number] [place] [address] Jul, [facility] [place] [facility] [address] [id number] [place] [address] Jul, [facility] [place] [facility] [address] [id number] [place] [address] Jun, [facility] [place] [facility] [address] [id number] [place] [address] Jun, [facility] [place] [facility] [address] [id number], [place] [address] May, [facility] [place] [facility] [address] [id number] [place] [address] May, [facility] [place] [facility] [address] [id number], [place] [address] 27 Apr, 2011 [facility] [place] [facility] [address] [id number], [place] [address] Mar, [facility] [place] [facility] [address] [id number], [place] [address] Jan, [facility] [place] [facility] [address] [id number] [place] [address] 15 Dec, 2010 [facility] [place] [facility] [address] [id number], [place] [address] 17 Jun, 2010 [facility] [place] [facility] [address] [id number] [place] [address] 13 Jun, 2010 [facility] [place] [facility] [address] [id number] [place] [address] May, [facility] [place] [facility] [address] [id number] [place] [address] May, IMMUNIZATIONS No Known Immunizations SOCIAL HISTORY Never Assessed REASON FOR VISIT f/u PLAN OF CARE Activity Details Follow Up 2 Weeks Reason:depression and anxiety VITAL SIGNS MEDICATIONS Unknown Medications RESULTS No Results PROCEDURES Procedure Date Ordered Result Body Site [facility]IS[facility] ESTAB PT January 12, 2018 Psychotherapy, patient &/family, 30 minutes, established patient January 12, 2018 INSTRUCTIONS MEDICATIONS ADMINISTERED No Known Medications [...] UTI - Hospital ED [facility] 05/31/17 Hospitalization History UTI 08-06-17
--- OUTSIDE RECORDS SUMMARY | 2018-11-19 07:32 | XMS REPORT ---
Author Author RYNE CAMP Organization [facility] Address [address] [place] [address] Care Team Providers Care Home Visitor Name Role Phone RYNE CAMP Unavailable PROBLEMS Type Condition ICD9-CM Code [id number] Code Onset Dates Condition Status SNOMED Code Problem Bipolar disorder, current episode depressed, moderate F31.32 Active 906595614 Problem Generalized anxiety disorder F41.1 Active [id number] ALLERGIES No Information ENCOUNTERS Encounter Location Date Diagnosis [place] [id number] [place] [address] 21231- 9106 May, [facility] [id number] [place] [address] 15951- 0641 Apr, [facility] [id number] [place] [address] 17635- 0494 Mar, [place] [place] [id number] [place] [address] 56594- 2878 Mar, Bipolar disorder, current episode depressed, moderate F31.32 and Generalized anxiety disorder F41.1 [place] [place] [id number] [place] [address] 69618- 1802 Feb, [facility] [id number] [place] [address] 82549- 7974 Jan, Bipolar disorder, current episode depressed, moderate F31.32 and Generalized anxiety disorder F41.1 [facility] [id number] [place] [address] 44637- 9999 Jan, Bipolar disorder, current episode depressed, moderate F31.32 and Generalized anxiety disorder F41.1 [place] [id number] [place] [address] 03600- 4353 Jan, Bipolar disorder, current episode depressed, moderate F31.32 [facility] [id number] [address] 3038 Jan, Bipolar disorder, current episode depressed, moderate F31.32 [facility] [id number] [place] [address] 07540- 5316 Jan, Bipolar disorder, current episode depressed, moderate F31.32 and Generalized anxiety disorder F41.1 [facility] [id number] [place] [address] 02173- 7424 Dec, Bipolar disorder, current episode depressed, moderate F31.32 and Generalized anxiety disorder F41.1 [place] [id number] [place] [address] 43918- 5637 November, Bipolar disorder, current episode depressed, moderate F31.32 and Generalized anxiety disorder F41.1 [place] [id number] [place] [address] 28432- 8122 November, Bipolar disorder, current episode depressed, moderate F31.32 and Generalized anxiety disorder F41.1 [facility] [id number] [place] [address] 66192- 4646 Oct, Bipolar disorder, current episode depressed, moderate F31.32 and Generalized anxiety disorder F41.1 [facility] [id number] [place] [address] 30343- 4364 Oct, Bipolar disorder, current episode depressed, moderate F31.32 and Generalized anxiety disorder F41.1 [facility] [address] [address] 1952 Oct, Bipolar disorder, current episode depressed, moderate F31.32 [facility] [id number] [place] [address] 19311- 9031 Oct, Bipolar disorder, current episode depressed, moderate F31.32 and Generalized anxiety disorder F41.1 [facility] [address] [address]- 6710 Sep, Bipolar disorder, current episode depressed, moderate F31.32 and Generalized anxiety disorder F41.1 [facility] [id number] [place] [address] 87687- 5715 Aug, Bipolar disorder, current episode depressed, moderate F31.32 [facility] [id number] [place] [address] 09921- 2164 Aug, Bipolar disorder, current episode depressed, moderate F31.32 and Generalized anxiety disorder F41.1 [place] [id number] [place] [address] 22760- 9479 Jul, Bipolar disorder, current episode depressed, moderate F31.32 and Generalized anxiety disorder F41.1 [place] [id number] [place] [address] 47300- 0647 Jul, Bipolar disorder, current episode depressed, moderate F31.32 and High risk medication use Z79.899 [place] [id number] [place] [address] 79735- 7769 Jul, Generalized anxiety disorder F41.1 and Bipolar disorder, current episode depressed, moderate F31.32 [place] [place] [id number] [place] [address] 15142- 5388 Feb, Bipolar disorder, current episode depressed, moderate F31.32 and Generalized anxiety disorder F41.1 [place] [id number] [place] [address] 68137- 1369 November, Bipolar disorder, current episode depressed, moderate F31.32 and Generalized anxiety disorder F41.1 [facility] [id number] [place] [address] 42084- 3499 Aug, Bipolar disorder, current episode depressed, moderate F31.32 and Generalized anxiety disorder F41.1 [facility] [id number] [place] [address] 69947- 8062 Aug, [facility] [id number] [place] [address] 92148 -3466 Aug, Dysuria R30.0 and Acute cystitis with hematuria N30.01 [facility] [id number] [place] [address] 52917- 8665 Aug, Dysuria R30.0 [facility] [id number] [place] [address] 54585- 2658 Aug, Bipolar disorder, current episode depressed, moderate F31.32 and Generalized anxiety disorder F41.1 [facility] [id number] [place] [address] 57616- 9054 Jul, Bipolar disorder, current episode depressed, moderate F31.32 and Generalized anxiety disorder F41.1 [place] [id number] [place] [address] 87867- 3066 May, Generalized anxiety disorder F41.1 and Bipolar disorder, current episode depressed, moderate F31.32 [place] [id number] [place] [address] 46430- 5641 May, Bipolar disorder, current episode depressed, moderate F31.32 and Generalized anxiety disorder F41.1 [place] [id number] [place] [address] 66484- 4029 Apr, [facility] [id number] [place] [address] 73435- 9456 Apr, [facility] [id number] [place] [address] 61586- 6541 Apr, Bipolar disorder, current episode depressed, moderate F31.32 and Generalized anxiety disorder F41.1 [facility] [id number] [place] [address] 36128- 7907 Apr, [facility] [id number] [place] [address] 20238- 2490 Apr, Adjustment disorder with mixed anxiety and depressed mood F43.23 [facility] [id number] [place] [address] 30301- 3499 Mar, Bipolar disorder, current episode depressed, moderate F31.32 and Generalized anxiety disorder F41.1 [facility] [address] [facility] [id number] [address]- 6320 Feb, Bipolar disorder, current episode depressed, moderate F31.32 and Generalized anxiety disorder F41.1 [facility] [address] [facility] [id number] [address]- 8599 Feb, [facility] [address] [facility] [id number] [place] [address] 63616- 5702 Feb, Bipolar disorder, current episode depressed, moderate F31.32 and Generalized anxiety disorder F41.1 [facility] [address] [facility] [id number], [place] [address]- 1921 Feb, Generalized anxiety disorder F41.1 and Bipolar disorder, current episode depressed, moderate F31.32 [place] [id number] [place] [address] 22082- 6767 Jan, Bipolar disorder, current episode depressed, moderate F31.32 and Generalized anxiety disorder F41.1 [facility] [id number] [address]- 5751 Jan, Bipolar disorder, current episode depressed, moderate F31.32 and Generalized anxiety disorder F41.1 [place] [id number] [address]- 0314 Dec, Generalized anxiety disorder F41.1 and Bipolar disorder, current episode depressed, moderate F31.32 [facility] [id number] [address]- 8274 Dec, Bipolar disorder, current episode depressed, moderate F31.32 and Generalized anxiety disorder F41.1 [facility] [address] [facility] [id number], [place] [address]- 2721 November, Bipolar disorder, current episode depressed, moderate F31.32 and Generalized anxiety disorder F41.1 [facility] [address] [facility] [id number], [place] [address]- 6133 November, Bipolar disorder, current episode depressed, moderate F31.32 and Generalized anxiety disorder F41.1 [facility] [id number] [place] [address] 34517- 2719 November, Generalized anxiety disorder F41.1 and Bipolar disorder, 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 [facility] [id number] [place] [address] 64669- 8908 Oct, Bipolar disorder, current episode depressed, moderate F31.32 and Generalized anxiety disorder F41.1 [facility] [id number] [place] [address] 61054- 8486 Oct, Bipolar disorder, current episode depressed, moderate F31.32 and Generalized anxiety disorder F41.1 [place] [id number] [place] [address] 31055- 9330 Oct, Bipolar disorder, current episode depressed, moderate F31.32 and Generalized anxiety disorder F41.1 [place] [id number] [place] [address] 82144- 7861 Oct, Bipolar disorder, current episode depressed, moderate F31.32 and Generalized anxiety disorder F41.1 [facility] [id number] [place] [address] 07809- 6534 Sep, Bipolar disorder, current episode depressed, moderate F31.32 and Generalized anxiety disorder F41.1 [facility] [id number] [place] [address] 25588- 5593 Sep, Bipolar disorder, current episode depressed, moderate F31.32 and Generalized anxiety disorder F41.1 [facility] [id number] [place] [address] 01336- 2729 Sep, Bipolar disorder, current episode depressed, moderate F31.32 and Generalized anxiety disorder F41.1 [facility] [id number] [place] [address] 47779- 2091 Sep, [facility] [id number] [place] [address] 30996- 1579 07 Sep, 2015 Generalized anxiety disorder F41.1 and Bipolar disorder, current episode depressed, severe, without psychotic features F31.4 [facility] [address] [address]- 6710 Aug, Bipolar disorder, 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 and Generalized anxiety disorder F41.1 [facility] [address] [place] [address] 19217- 1130 Aug, Bipolar disorder, 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 and Generalized anxiety disorder F41.1 [facility] [id number] [place] [address] 92301- 9570 Jul, Bipolar disorder, 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 and Generalized anxiety disorder F41.1 [facility] [id number] [place] [address] 68032- 8624 Jul, Bipolar disorder, 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 and Generalized anxiety disorder F41.1 [place] [id number] [place] [address] 03261- 4729 Jun, [facility] [id number] [place] [address] 18204- 7267 Jun, Bipolar disorder, 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 and Generalized anxiety disorder F41.1 [facility] [id number] [place] [address] 59011- 4029 Jun, Bipolar disorder, 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 and Generalized anxiety disorder F41.1 [facility] [address] [place] [address] 46935- 5412 Jun, Generalized anxiety disorder F41.1 and Bipolar disorder, 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 [facility] [address] [place] [address] 67694- 1423 May, Generalized anxiety disorder F41.1 and Bipolar disorder, current episode depressed, severe, without psychotic features F31.4 [facility] [address] [address]- 3827 May, Bipolar disorder, 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 [facility] [address] [address]- 4769 May, [place] [id number] [place] [address] 99715- 7216 May, Bipolar disorder, unspecified F31.9 ; Generalized anxiety disorder F41.1 and Insomnia G47.00 [place] [id number] [place] [address] 82213- 4726 May, Bipolar disorder, current episode depressed, severe, without psychotic features F31.4 and Generalized anxiety disorder F41.1 [place] [id number] [place] [address] 28410- 8705 May, [place] [id number] [place] [address] 52769- 6859 Apr, Bipolar disorder, current episode depressed, severe, without psychotic features F31.4 and Generalized anxiety disorder F41.1 [place] [id number] [place] [address] 37328- 9953 Apr, Bipolar disorder, current episode depressed, severe, without psychotic features F31.4 [place] [id number] [place] [address] 21824- 2456 Apr, Bipolar disorder, current episode depressed, severe, without psychotic features F31.4 and Generalized anxiety disorder F41.1 [place] [id number] [place] [address] 46893- 4936 Mar, Bipolar disorder, unspecified 296.80 [place] [id number] [place] [address] 85525- 8627 Mar, Bipolar disorder, unspecified 296.80 ; Generalized anxiety disorder 300.02 and Depression, major, recurrent 296.30 [place] [place] [id number] [place] [address] 62224- 5333 Feb, Bipolar disorder, unspecified 296.80 [place] [id number] [place] [address] 34275- 4659 Jan, Bipolar disorder, unspecified 296.80 [facility] [id number] [address]- 9452 Dec, Bipolar disorder, unspecified 296.80 [facility] [address] [address]- 0536 Dec, Bipolar disorder, unspecified 296.80 ; Major depressive disorder, recurrent episode, unspecified 296.30 and Generalized anxiety disorder 300.02 [facility] [address], [place] [address]- 7138 November, Bipolar disorder, unspecified 296.80 [facility] [address], [place] [address]- 5464 Oct, [facility] [address] [address]- 8510 Oct, [facility] [address], [place] [address]- 7519 Sep, [facility] [address], [place] [address]- 2713 Sep, [facility] [address], [place] [address]- 1271 Jul, [facility] [address], [place] [address]- 1692 Jul, [facility] [address] [address]- 8822 Jul, [facility] [address], [place] [address]- 2528 Jul, [facility] [id number], [place] [address]- 9779 Jul, [facility] [address], [place] [address]- 3475 Jul, [facility] [id number], [place] [address]- 7798 Jun, [facility] [place] [facility] [address] [id number] [place] [address]- 8405 Jun, [facility] [place] [facility] [address] [id number] [place] [address]- 0515 May, [facility] [place] [facility] [address] [id number] [place] [address]- 5417 May, [facility] [place] [facility] [address] [id number] [place] [address]- 2654 May, [facility] [place] [facility] [address] [id number] [place] [address]- 1031 May, [facility] [place] [facility] [address] [id number] [place] [address]- 6037 Apr, [facility] [place] [facility] [address] [id number] [place] [address]- 3060 Apr, [facility] [place] [facility] [address] [id number] [place] [address]- 9665 Mar, [facility] [place] [facility] [address] [id number] [place] [address]- 2180 Mar, [facility] [place] [facility] [address] [id number] [place] [address]- 3967 Feb, [facility] [place] [facility] [address] [id number] [place] [address]- 9764 Feb, [facility] [place] [facility] [address] [id number] [place] [address]- 4570 Feb, [facility] [place] [facility] [address] [id number] [place] [address]- 6708 Feb, [facility] [place] [facility] [address] [id number] [place] [address]- 5513 Feb, [facility] [place] [facility] [address] [id number] [place] [address]- 4678 Feb, [facility] [place] [facility] [address] [id number] [place] [address]- 7863 Feb, [facility] [place] [facility] [address] [id number] [place] [address]- 3485 Feb, [facility] [place] [facility] [address] [id number] [place] [address]- 7743 Feb, [facility] [place] [facility] [address] [id number] [place] [address]- 6878 Feb, [facility] [place] [facility] [address] [id number] [place] [address]- 6099 Feb, [facility] [place] [facility] [address] [id number] [place] [address]- 9403 Feb, [facility] [place] [facility] [address] [id number] [place] [address]- 6811 Feb, [facility] [place] [facility] [address] [id number] [place] [address]- 2997 Feb, [facility] [place] [facility] [address] [id number] [place] [address]- 2381 Jan, [facility] [place] [facility] [address] [id number] [place] [address]- 6700 Jan, [facility] [place] [facility] [address] [id number] [place] [address]- 7104 Jan, [facility] [place] [facility] [address] [id number] [place] [address]- 4046 Jan, [facility] [place] [facility] [address] [id number] [place] [address]- 2576 Jan, [facility] [place] [facility] [address] [id number] [place] [address]- 3684 Jan, [facility] [place] [facility] [address] [id number] [place] [address]- 0421 Jan, [facility] [place] [facility] [address] [id number] [place] [address]- 0000 Jan, [facility] [place] [facility] [address] [id number] [place] [address]- 2403 Dec, [facility] [place] [facility] [address] [id number] [place] [address]- 2469 Dec, [facility] [place] [facility] [address] [id number] [place] [address]- 4265 Dec, [facility] [place] [facility] [address] [id number] [place] [address]- 0907 Dec, [facility] [place] [facility] [address] [id number] [place] [address]- 0437 Dec, [facility] [place] [facility] [address] [id number] [place] [address]- 6874 Dec, [facility] [place] [facility] [address] [id number] [place] [address]- 4988 November, [facility] [place] [facility] [address] [id number] [place] [address]- 3946 November, [facility] [place] [facility] [address] [id number] [place] [address]- 6277 November, [facility] [place] [facility] [address] [id number] [place] [address]- 6684 November, [facility] [place] [facility] [address] [id number] [place] [address]- 2048 Oct, [facility] [place] [facility] [address] [id number] [place] [address]- 6451 Oct, [facility] [place] [facility] [address] [id number] [place] [address]- 2814 Sep, [facility] [place] [facility] [address] [id number] [place] [address]- 9055 Sep, [facility] [place] [facility] [address] [id number] [place] [address]- 9616 Sep, [facility] [place] [facility] [address] [id number] [place] [address]- 4990 Sep, [facility] [place] [facility] [address] [id number] [place] [address]- 2696 Sep, [facility] [place] [facility] [address] [id number] [place] [address]- 6675 Sep, [facility] [place] [facility] [address] [id number] [place] [address]- 9679 Sep, [facility] [place] [facility] [address] [id number] [place] [address]- 0139 Sep, [facility] [place] [facility] [address] [id number] [place] [address]- 9580 Aug, [facility] [place] [facility] [address] [id number] [place] [address]- 2942 Aug, [facility] [place] [facility] [address] [id number] [place] [address]- 4375 Aug, [facility] [place] [facility] [address] [id number] [place] [address]- 2347 Aug, [facility] [place] [facility] [address] [id number] [place] [address]- 5008 Aug, [facility] [place] [facility] [address] [id number] [place] [address]- 6163 Aug, [facility] [place] [facility] [address] [id number] [place] [address]- 0534 Aug, [facility] [place] [facility] [address] [id number] [place] [address]- 1558 Aug, [facility] [place] [facility] [address] [id number] [place] [address]- 6313 Jul, [facility] [place] [facility] [address] [id number] [place] [address] Jul, [facility] [place] [facility] [address] [id number] [place] [address] Jul, [facility] [place] [facility] [address] [id number] [place] [address] Jul, [facility] [address] [id number] [place] [address] Jul, [facility] [place] [facility] [address] [id number] [place] [address] Jul, [facility] [address] [id number] [place] Jul, [facility] [place] [facility] [address] [id number] [place] [address] Jul, [facility] [address] [id number] [place] [address] Jun, [facility] [place] [facility] [address] [id number] [place] [address] Jun, [facility] [address] [id number] [place] [address] Jun, [facility] [place] [facility] [address] [id number] [place] [address] Jun, [facility] [place] [facility] [address] [id number] [place] [address] May, [facility] [place] [facility] [address] [facility] [id number] [place] [address] May, [facility] [place] [facility] [address] [id number] [place] [address] May, [facility] [place] [facility] [address] [id number] [place] [address] May, [facility] [place] [facility] [address] [id number] [place] [address] May, [facility] [place] [facility] [address] [id number] [place] [address] May, [facility] [place] [facility] [address] [id number] [place] [address] May, [facility] [place] [facility] [address] [id number] [place] [address] May, [facility] [place] [facility] [address] [id number] [place] [address] Apr, [facility] [place] [facility] [address] [id number] [place] [address] Apr, [facility] [place] [facility] [address] [id number] [place] [address] Apr, [facility] [place] [facility] [address] [id number] [place] [address] Apr, [facility] [place] [facility] [address] [id number] [place] [address] Apr, [facility] [place] [facility] [address] [id number] [place] [address] Apr, [facility] [place] [facility] [address] [id number] [place] [address] Apr, [facility] [place] [facility] [address] [id number] [place] [address] Apr, [facility] [place] [facility] [address] [id number] [place] [address] Apr, [facility] [place] [facility] [address] [id number] [place] [address] Apr, [facility] [place] [facility] [address] [id number], [place] [address] Apr, [facility] [place] [facility] [address] [id number] [place] [address] Mar, [facility] [place] [facility] [address] [id number] [place] [address] Feb, [facility] [place] [facility] [address] [id number] [place] [address] Feb, [facility] [place] [facility] [address] [id number], [place] [address] Feb, [facility] [address] [id number] [place] [address] Jan, [facility] [place] [facility] [address] [id number] [place] [address] Dec, [facility] [place] [facility] [address] [id number] [place] [address] Dec, [facility] [place] [facility] [address] [id number] [place] [address] Dec, [facility] [address] [id number] [place] [address] November, [facility] [place] [facility] [address] [id number] [place] [address] November, [facility] [address] [id number] [place] [address] November, [facility] [place] [facility] [address] [id number] [place] [address] Oct, [facility] [address] [id number] [place] [address] Oct, [facility] [place] [facility] [address] [id number] [place] [address] Oct, [facility] [address] [id number] [place] [address] Sep, [facility] [place] [facility] [address] [id number] [place] [address] Sep, [facility] [place] [facility] [address] [id number] [place] [address] 47[address] Sep, [facility] [place] [facility] [address] [id number] [place] [address] Aug, [facility] [place] [facility] [address] [id number] [place] [address] Jul, [facility] [place] [facility] [address] [id number] [place] [address] Jul, [facility] [place] [facility] [address] [id number] [place] [address] Jun, [facility] [place] [facility] [address] [id number] [place] [address] Jun, [facility] [place] [facility] [address] [id number] [place] [address] May, [facility] [place] [facility] [address] [id number] [place] [address] May, [facility] [place] [facility] [address] [id number] [place] [address] May, [facility] [place] [facility] [address] [id number] [place] [address] May, [facility] [place] [facility] [address] [id number] [place] [address] May, [facility] [place] [facility] [address] [id number] [place] [address] May, [facility] [place] [facility] [address] [id number] [place] [address] Apr, [facility] [place] [facility] [address] [id number] [place] [address] Feb, [facility] [place] [facility] [address] [id number] [place] [address] Dec, [facility] [place] [facility] [address] [id number] [place] [address] November, [facility] [place] [facility] [address] [id number] [place] [address] Oct, [facility] [place] [facility] [address] [id number] [place] [address] Oct, [facility] [place] [facility] [address] [id number] [place] [address] Oct, [facility] [place] [facility] [address] [id number] [place] [address] Sep, [facility] [place] [facility] [address] [id number] [place] [address] 14 Sep, 2011 [facility] [place] [facility] [address] [id number] [place] [address] 15 Aug, 2011 [facility] [place] [facility] [address] [id number] [place] [address] Jul, [facility] [place] [facility] [address] [id number] [place] [address] Jul, [facility] [place] [facility] [address] [id number] [place] [address] Jun, [facility] [place] [facility] [address] [id number] [place] [address]- [address] Jun, [facility] [place] [facility] [address] [id number], [place] [address] May, [facility] [place] [facility] [address] [id number] [place] [address] May, [facility] [place] [facility] [address] [id number], [place] [address] 27 Apr, 2011 [facility] [place] [facility] [address] [id number], [place] [address] Mar, [facility] [place] [facility] [address] [id number], [place] [address] Jan, [facility] [place] [facility] [address] [id number] [place] [address] 15 Dec, 2010 [facility] [place] [facility] [address] [id number], [place] [address] 17 Jun, 2010 [facility] [place] [facility] [address] [id number] [place] [address] 13 Jun, 2010 [facility] [place] [facility] [address] [facility] [id number] [place] [address] May, [facility] [place] [address] [facility] [id number] [place] [address] May, IMMUNIZATIONS No Known Immunizations SOCIAL HISTORY Never Assessed REASON FOR VISIT f/u PLAN OF CARE Activity Details Follow Up 4 Weeks Reason:depression and anxiety VITAL SIGNS MEDICATIONS Unknown Medications RESULTS No Results PROCEDURES Procedure Date Ordered Result Body Site [facility] VISIT MENTAL HEALTH ESTAB PT January 27, 2018 Psychotherapy, patient &/family, 30 minutes, established patient January 27, 2018 INSTRUCTIONS MEDICATIONS ADMINISTERED No Known Medications [...] 05/19/17 Hospitalization History UTI - Hospital ED [facility] 05/31/17 Hospitalization History UTI 08-06-17
--- OUTSIDE RECORDS SUMMARY | 2018-11-19 07:33 | XMS REPORT ---
Author Author ISABEL NARINDER [facility] Address [address] [place] [address] Care Team Providers Care Bakery Deliverer Name Role Phone ISABEL NARINDER Unavailable PROBLEMS Type Condition ICD9-CM Code USZ77-BN Code Onset Dates Condition Status SNOMED Code Problem Bipolar disorder, current episode depressed, moderate F31.32 Active 478995625 Problem Generalized anxiety disorder F41.1 Active [id number] ALLERGIES Substance Reaction Event Type Date Status Penicillin V Potassium hives Drug Allergy Jan, Active Macrodantin hives Drug Allergy Jan, Active Mushrooms hives, upset stomach Non Drug Allergy Jan, Active Cow milk hives, upset stomach Non Drug Allergy Jan, Active Goat milk hives, upset stomach Non Drug Allergy Jan, Active Eggs hives, upset stomach Non Drug Allergy Jan, Active Soy hives, upset stomach Non Drug Allergy Jan, Active ENCOUNTERS Encounter Location Date Diagnosis [place] [id number] [place] [address] 66033- 5933 May, [place] [id number] [address] Mar, [facility] [id number] [place] [address] 40538- 2339 Mar, [facility] [id number], [place] [address] 9[address] Feb, [facility] [id number] [place] [address] 08278- 3185 Jan, Bipolar disorder, current episode depressed, moderate F31.32 and Generalized anxiety disorder F41.1 [facility] [id number] [place] [address] 93840- 7572 Jan, Bipolar disorder, current episode depressed, moderate F31.32 and Generalized anxiety disorder F41.1 [facility] [id number] [place] [address] 57313- 1207 Jan, Bipolar disorder, current episode depressed, moderate F31.32 [facility] [id number] [place] [address] 37693- 3925 Jan, Bipolar disorder, current episode depressed, moderate F31.32 [facility] [id number] [place] [address] 01467- 6125 Jan, Bipolar disorder, current episode depressed, moderate F31.32 and Generalized anxiety disorder F41.1 [facility] [id number] [place] [address] 34793- 3808 Dec, Bipolar disorder, current episode depressed, moderate F31.32 and Generalized anxiety disorder F41.1 [place] [id number] [place] [address] 85000- 0714 November, Bipolar disorder, current episode depressed, moderate F31.32 and Generalized anxiety disorder F41.1 [facility] [id number] [place] [address] 90990- 2183 November, Bipolar disorder, current episode depressed, moderate F31.32 and Generalized anxiety disorder F41.1 [facility] [id number] [place] [address] 45708- 6619 Oct, Bipolar disorder, current episode depressed, moderate F31.32 and Generalized anxiety disorder F41.1 [facility] [id number] [place] [address] 47895- 8819 Oct, Bipolar disorder, current episode depressed, moderate F31.32 and Generalized anxiety disorder F41.1 [facility] [id number] [place] [address] 78902- 4511 Oct, Bipolar disorder, current episode depressed, moderate F31.32 [facility] [id number] [place] [address] 86330- 0530 Oct, Bipolar disorder, current episode depressed, moderate F31.32 and Generalized anxiety disorder F41.1 [facility] [id number] [place] [address] 82452- 2566 Sep, Bipolar disorder, current episode depressed, moderate F31.32 and Generalized anxiety disorder F41.1 [place] [id number] [place] [address] 90659- 7708 Aug, Bipolar disorder, current episode depressed, moderate F31.32 [facility] [id number] [place] [address] 91139- 5773 Aug, Bipolar disorder, current episode depressed, moderate F31.32 and Generalized anxiety disorder F41.1 [place] [id number] [place] [address] 34753- 9785 Jul, Bipolar disorder, current episode depressed, moderate F31.32 and Generalized anxiety disorder F41.1 [place] [address] [id number] [place] [address] 81568- 1497 Jul, Bipolar disorder, current episode depressed, moderate F31.32 and High risk medication use Z79.899 [place] [address] [id number] [place] [address] 87253- 2534 Jul, Generalized anxiety disorder F41.1 and Bipolar disorder, current episode depressed, moderate F31.32 [place] [id number] [place] [address] 81954- 8387 Feb, Bipolar disorder, current episode depressed, moderate F31.32 and Generalized anxiety disorder F41.1 [place] [id number] [place] [address] 41918- 4766 November, Bipolar disorder, current episode depressed, moderate F31.32 and Generalized anxiety disorder F41.1 [place] [id number] [place] [address] 34055- 2486 Aug, Bipolar disorder, current episode depressed, moderate F31.32 and Generalized anxiety disorder F41.1 [place] [address] [id number] [place] [address] 75435- 8748 Aug, [facility] [id number] [place] [address] 05636 -8140 Aug, Dysuria R30.0 and Acute cystitis with hematuria N30.01 [facility] [id number] [place] [address] 58434- 0610 Aug, Dysuria R30.0 [facility] [id number] [place] [address] 98322- 9298 Aug, Bipolar disorder, current episode depressed, moderate F31.32 and Generalized anxiety disorder F41.1 [facility] [id number] [place] [address] 02400- 6549 Jul, Bipolar disorder, current episode depressed, moderate F31.32 and Generalized anxiety disorder F41.1 [facility] [id number] [place] [address] 76527- 2150 May, Generalized anxiety disorder F41.1 and Bipolar disorder, current episode depressed, moderate F31.32 [facility] [id number] [place] [address] 54583- 2911 May, Bipolar disorder, current episode depressed, moderate F31.32 and Generalized anxiety disorder F41.1 [facility] [id number] [place] [address] 75492- 9564 Apr, [facility] [id number] [place] [address] 73313- 8571 Apr, [facility] [id number] [place] [address] 59697- 3664 Apr, Bipolar disorder, current episode depressed, moderate F31.32 and Generalized anxiety disorder F41.1 [facility] [id number] [place] [address] 19867- 7751 Apr, [facility] [id number] [place] [address] 09938- 9224 Apr, Adjustment disorder with mixed anxiety and depressed mood F43.23 [facility] [address] [id number] [address]- 9971 Mar, Bipolar disorder, current episode depressed, moderate F31.32 and Generalized anxiety disorder F41.1 [facility] [address] [facility] [id number] [address] 5267 Feb, Bipolar disorder, current episode depressed, moderate F31.32 and Generalized anxiety disorder F41.1 [place] [address] [place] [id number] [place] [address] 22112- 9475 Feb, [place] [address] [id number] [place] [address] 75451- 3325 Feb, Bipolar disorder, current episode depressed, moderate F31.32 and Generalized anxiety disorder F41.1 [place] [id number] [place] [address] 47951- 4630 Feb, Generalized anxiety disorder F41.1 and Bipolar disorder, current episode depressed, moderate F31.32 [place] [address] [place] [id number] [place] [address] 86791- 7658 Jan, Bipolar disorder, current episode depressed, moderate F31.32 and Generalized anxiety disorder F41.1 [place] [address] [place] [id number] [address]- 3628 Jan, Bipolar disorder, current episode depressed, moderate F31.32 and Generalized anxiety disorder F41.1 [place] [address] [place] [id number] [place] [address] 20139- 5706 Dec, Generalized anxiety disorder F41.1 and Bipolar disorder, current episode depressed, moderate F31.32 [place] [address] [place] [id number] [place] [address] 41237- 8769 Dec, Bipolar disorder, current episode depressed, moderate F31.32 and Generalized anxiety disorder F41.1 [facility] [address] [id number] [address]- 2881 November, Bipolar disorder, current episode depressed, moderate F31.32 and Generalized anxiety disorder F41.1 [facility] [id number] [place] [address] 49250- 8902 November, Bipolar disorder, current episode depressed, moderate F31.32 and Generalized anxiety disorder F41.1 [facility] [id number] [place] [address] 41247- 2711 November, Generalized anxiety disorder F41.1 and Bipolar disorder, 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 [facility] [id number] [place] [address] 12151- 8580 Oct, Bipolar disorder, current episode depressed, moderate F31.32 and Generalized anxiety disorder F41.1 [place] [id number] [place] [address] 86461- 7329 Oct, Bipolar disorder, current episode depressed, moderate F31.32 and Generalized anxiety disorder F41.1 [place] [address] [address] [id number] [place] [address] 21192- 1788 Oct, Bipolar disorder, current episode depressed, moderate F31.32 and Generalized anxiety disorder F41.1 [facility] [id number] [place] [address] 37903- 9931 Oct, Bipolar disorder, current episode depressed, moderate F31.32 and Generalized anxiety disorder F41.1 [facility] [id number] [place] [address] 68688- 7640 Sep, Bipolar disorder, current episode depressed, moderate F31.32 and Generalized anxiety disorder F41.1 [facility] [id number] [place] [address] 88844- 1256 24 Sep, 2015 Bipolar disorder, current episode depressed, moderate F31.32 and Generalized anxiety disorder F41.1 [facility] [id number] [place] [address] 26356- 4379 10 Sep, 2015 Bipolar disorder, current episode depressed, moderate F31.32 and Generalized anxiety disorder F41.1 [facility] [id number] [place] [address] 39930- 9375 Sep, [facility] [id number] [address]- 9120 Sep, Generalized anxiety disorder F41.1 and Bipolar disorder, current episode depressed, severe, without psychotic features F31.4 [facility] [id number] [place] [address] 57257- 5867 Aug, Bipolar disorder, 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 and Generalized anxiety disorder F41.1 [facility] [id number] [place] [address] 28167- 2641 Aug, Bipolar disorder, 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 and Generalized anxiety disorder F41.1 [facility] [id number] [place] [address] 71616- 1001 Jul, Bipolar disorder, 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 and Generalized anxiety disorder F41.1 [facility] [id number] [place] [address] 91001- 8575 Jul, Bipolar disorder, 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 and Generalized anxiety disorder F41.1 [facility] [id number] [place] [address] 87140- 9185 Jun, [facility] [id number] [place] [address] 04726- 6517 Jun, Bipolar disorder, 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 and Generalized anxiety disorder F41.1 [facility] [id number] [place] [address] 80321- 1212 Jun, Bipolar disorder, 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 and Generalized anxiety disorder F41.1 [facility] [id number] [place] [address] 59063- 3938 Jun, Generalized anxiety disorder F41.1 and Bipolar disorder, 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 [facility] [address] [address]- 1383 May, Generalized anxiety disorder F41.1 and Bipolar disorder, current episode depressed, severe, without psychotic features F31.4 [facility] [id number], [place] [address]- 6682 May, Bipolar disorder, 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 [facility] [id number] [place] [address] 94225- 4519 May, [facility] [id number] [place] [address] 55049- 8155 May, Bipolar disorder, unspecified F31.9 ; Generalized anxiety disorder F41.1 and Insomnia G47.00 [facility] [id number] [place] [address] 97801- 0652 May, Bipolar disorder, current episode depressed, severe, without psychotic features F31.4 and Generalized anxiety disorder F41.1 [facility] [id number] [place] [address] 15777- 1814 May, [facility] [id number] [place] [address] 69110- 7810 Apr, Bipolar disorder, current episode depressed, severe, without psychotic features F31.4 and Generalized anxiety disorder F41.1 [facility] [id number] [place] [address] 20229- 5898 Apr, Bipolar disorder, current episode depressed, severe, without psychotic features F31.4 [facility] [id number] [place] [address] 60609- 1599 Apr, Bipolar disorder, current episode depressed, severe, without psychotic features F31.4 and Generalized anxiety disorder F41.1 [facility] [id number] [place] [address] 37287- 1751 Mar, Bipolar disorder, unspecified 296.80 [facility] [id number] [place] [address] 1616 Mar, Bipolar disorder, unspecified 296.80 ; Generalized anxiety disorder 300.02 and Depression, major, recurrent 296.30 [facility] [id number] [place] [address] 09241- 5853 Feb, Bipolar disorder, unspecified 296.80 [facility] [address] [address]- 4952 Jan, Bipolar disorder, unspecified 296.80 [facility] [address] [address]- 0356 Dec, Bipolar disorder, unspecified 296.80 [facility] [id number] [address]- 1356 Dec, Bipolar disorder, unspecified 296.80 ; Major depressive disorder, recurrent episode, unspecified 296.30 and Generalized anxiety disorder 300.02 [facility] [address] [address]- 7856 November, Bipolar disorder, unspecified 296.80 [facility] [address] [address]- 1165 Oct, [facility] [address], [place] [address]- 4738 Oct, [facility] [address] [address]- 8340 Sep, [facility] [address] 3833 Sep, [facility] [id number], [place] [address]- 3056 Jul, [facility] [id number] [address]- 7044 Jul, [facility] [address], [place] [address]- 9622 Jul, [facility] [address], [place] [address]- 4930 Jul, [facility] [address], [place] [address]- 4286 Jul, [facility] [id number] [place] [address]- 7367 Jul, [facility] [place] [facility] [address] [id number] [place] [address]- 6094 Jun, [facility] [place] [facility] [address] [id number] [place] [address]- 2416 Jun, [facility] [place] [facility] [address] [id number] [place] [address]- 7710 May, [facility] [place] [facility] [address] [id number] [place] [address]- 1001 May, [facility] [place] [facility] [address] [id number] [place] [address]- 2977 May, [facility] [place] [facility] [address] [id number] [place] [address]- 4172 May, [facility] [place] [facility] [address] [id number] [place] [address]- 4073 Apr, [facility] [place] [facility] [address] [id number] [place] [address]- 1699 Apr, [facility] [place] [facility] [address] [id number] [place] [address]- 7398 Mar, [facility] [place] [facility] [address] [id number] [place] [address]- 1023 Mar, [facility] [place] [facility] [address] [id number] [place] [address]- 1446 Feb, [facility] [place] [facility] [address] [id number] [place] [address]- 1010 Feb, [facility] [place] [facility] [address] [id number] [place] [address]- 8291 Feb, [facility] [place] [facility] [address] [id number] [place] [address]- 7036 Feb, [facility] [place] [facility] [address] [id number] [place] [address]- 5681 Feb, [facility] [place] [facility] [address] [id number] [place] [address]- 2559 Feb, [facility] [place] [facility] [address] [id number] [place] [address]- 9941 Feb, [facility] [place] [facility] [address] [id number] [place] [address]- 2849 Feb, [facility] [place] [facility] [address] [id number] [place] [address]- 6095 Feb, [facility] [place] [facility] [address] [id number] [place] [address]- 3392 Feb, [facility] [place] [facility] [address] [id number] [place] [address]- 8091 Feb, [facility] [place] [facility] [address] [id number] [place] [address]- 0954 Feb, [facility] [place] [facility] [address] [id number] [place] [address]- 3945 Feb, [facility] [place] [facility] [address] [id number] [place] [address]- 1437 Feb, [facility] [place] [facility] [address] [id number] [place] [address]- 2822 Jan, [facility] [place] [facility] [address] [id number] [place] [address]- 1317 Jan, [facility] [place] [facility] [address] [id number] [place] [address]- 7441 Jan, [facility] [place] [facility] [address] [id number] [place] [address]- 3307 Jan, [facility] [place] [facility] [address] [id number] [place] [address]- 2664 Jan, [facility] [place] [facility] [address] [id number] [place] [address]- 2360 Jan, [facility] [place] [facility] [address] [id number] [place] [address]- 8911 Jan, [facility] [place] [facility] [address] [id number] [place] [address]- 7455 Jan, [facility] [place] [facility] [address] [id number] [place] [address]- 6890 Dec, [facility] [place] [facility] [address] [id number] [place] [address]- 4445 Dec, [facility] [place] [facility] [address] [id number] [place] [address]- 2173 Dec, [facility] [place] [facility] [address] [id number] [place] [address]- 9484 Dec, [facility] [place] [facility] [address] [id number] [place] [address]- 5433 Dec, [facility] [place] [facility] [address] [id number] [place] [address]- 3370 Dec, [facility] [place] [facility] [address] [id number] [place] [address]- 8099 November, [facility] [place] [facility] [address] [id number] [place] [address]- 1007 November, [facility] [place] [facility] [address] [facility] [id number] [place] [address]- 6990 November, [facility] [place] [facility] [address] [id number] [place] [address]- 4980 November, [facility] [place] [facility] [address] [id number] [place] [address]- 6859 Oct, [facility] [place] [facility] [address] [id number] [place] [address]- 4726 Oct, [facility] [place] [facility] [address] [id number] [place] [address]- 1032 Sep, [facility] [place] [facility] [address] [id number] [place] [address]- 2802 Sep, [facility] [place] [facility] [address] [id number] [place] [address]- 3764 Sep, [facility] [place] [facility] [address] [id number] [place] [address]- 9519 Sep, [facility] [place] [facility] [address] [id number] [place] [address]- 8776 Sep, [facility] [place] [facility] [address] [id number] [place] [address]- 3158 Sep, [facility] [place] [facility] [address] [id number] [place] [address]- 8706 Sep, [facility] [place] [facility] [address] [id number] [place] [address]- 2754 Sep, [facility] [place] [facility] [address] [id number] [place] [address]- 6937 Aug, [facility] [place] [facility] [address] [id number] [place] [address]- 2342 Aug, [facility] [place] [facility] [address] [id number] [place] [address]- 6988 Aug, [facility] [place] [facility] [address] [facility] [id number] [place] [address]- 9417 Aug, [facility] [place] [facility] [address] [facility] [id number] [place] [address]- 6936 Aug, [facility] [place] [facility] [address] [id number] [place] [address]- 7497 Aug, [facility] [place] [facility] [address] [id number] [place] [address]- 0054 Aug, [facility] [place] [facility] [address] [id number] [place] [address]- 8319 Aug, [facility] [place] [facility] [address] [id number] [place] [address]- 7453 Jul, [facility] [place] [facility] [address] [id number], [place] [address] Jul, [facility] [address] [id number] [place] [address] Jul, [facility] [place] [facility] [address] [id number] [place] [address] Jul, [facility] [place] [facility] [address] [facility] [id number] [place] [address] Jul, [facility] [place] [facility] [address] [id number] [place] [address] Jul, [facility] [place] [facility] [address] [facility] [id number] [place] [address] Jul, [facility] [place] [facility] [address] [id number] [place] [address] Jul, [facility] [id number] [address] Jun, [facility] [place] [facility] [address] [id number] [place] [address] Jun, [facility] [place] [facility] [address] [id number] [place] [address] Jun, [facility] [place] [facility] [address] [facility] [id number] [place] [address] Jun, [facility] [place] [facility] [address] [id number], [place] [address] May, [facility] [place] [facility] [address] [id number], [place] [address] May, [facility] [place] [facility] [address] [id number] [place] [address] May, [facility] [place] [facility] [address] [facility] [id number] [place] [address] May, [facility] [place] [facility] [address] [facility] [id number] [address] May, [facility] [place] [facility] [address] [id number] [place] [address] May, [facility] [place] [facility] [address] [id number] [place] [address] May, [facility] [place] [facility] [address] [id number] [place] [address] May, [facility] [place] [facility] [address] [id number] [place] [address] Apr, [facility] [place] [facility] [address] [id number] [place] [address] Apr, [facility] [place] [facility] [address] [id number] [id number] [address] Apr, [facility] [place] [facility] [address] [id number] [place] [address] Apr, [facility] [place] [facility] [address] [id number] [place] [address] Apr, [facility] [place] [facility] [address] [id number] [place] [address] Apr, [facility] [place] [facility] [address] [id number] [place] [address] Apr, [facility] [place] [facility] [address] [id number] [place] [address] Apr, [facility] [place] [facility] [address] [id number] [place] [address] Apr, [facility] [place] [facility] [address] [id number] [place] [address] Apr, [facility] [place] [facility] [address] [id number] [place] [address] Apr, [facility] [place] [facility] [address] [id number] [place] [address] Mar, [facility] [place] [facility] [address] [id number] [place] [address] Feb, [facility] [address] [id number] [place] [address] Feb, [facility] [place] [facility] [address] [id number] [place] [address] Feb, [facility] [place] [facility] [address] [id number] [place] [address] Jan, [facility] [place] [facility] [address] [id number] [place] [address] Dec, [facility] [address] [id number] [place] [address] Dec, [facility] [place] [facility] [address] [id number] [place] [address] Dec, [facility] [place] [facility] [address] [id number] [place] [address] November, [facility] [place] [facility] [address] [id number] [place] [address] November, [facility] [place] [facility] [address] [id number] [place] [address] November, [facility] [place] [facility] [address] [id number] [place] [address] Oct, [facility] [place] [facility] [address] [id number] [place] [address] Oct, [facility] [place] [facility] [address] [id number] [place] [address] Oct, [facility] [place] [facility] [address] [id number] [place] [address] Sep, [facility] [place] [facility] [address] [id number] [place] [address]- [address] 05 Sep, 2012 [facility] [place] [facility] [address] [id number] [place] [address] Sep, [facility] [place] [facility] [address] [id number] [place] [address] Aug, [facility] [address] [id number] [place] [address] Jul, [facility] [place] [facility] [address] [id number] [place] [address]681 Jul, [facility] [address] [id number] [place] [address] Jun, [facility] [place] [facility] [address] [id number] [place] [address] Jun, [facility] [address] [id number] [place] [address] May, [facility] [place] [facility] [address] [id number] [place] [address] 79[address] May, [facility] [address] [id number] [place] [address] May, [facility] [address] [id number] [place] [address]288 May, [facility] [place] [facility] [address] [id number] [place] [address] May, [facility] [place] [facility] [address] [id number] [place] [address] May, [facility] [place] [facility] [address] [id number] [place] [address] Apr, [facility] [place] [facility] [address] [id number] [place] [address] 269[address] Feb, [facility] [place] [facility] [address] [id number] [place] [address] Dec, [facility] [place] [facility] [address] [id number] [place] [address] 47[address] November, [facility] [place] [facility] [address] [id number] [place] [address] Oct, [facility] [place] [facility] [address] [id number] [place] [address] 13 Oct, 2011 [facility] [address] [id number] [place] [address] 12 Oct, 2011 [facility] [address] [id number] [place] [address] 20 Sep, 2011 [facility] [place] [facility] [address] [id number] [place] [address] 14 Sep, 2011 [facility] [address] [id number] [place] [address] Aug, [facility] [address] [id number] [place] [address] Jul, [facility] [address] [id number] [place] [address] Jul, [facility] [address] [id number] [place] [address] Jun, [facility] [place] [facility] [address] [id number] [place] [address] Jun, [facility] [address] [id number] [place] [address] May, [facility] [place] [facility] [address] [id number] [place] [address] May, [facility] [place] [facility] [address] [id number], [place] [address] Apr, [facility] [place] [facility] [address] [id number] [place] [address] Mar, [facility] [place] [facility] [address] [id number] [place] [address]- [address] Jan, [facility] [place] [facility] [address] [id number] [place] [address] 1196 Dec, [facility] [place] [facility] [address] [id number], [place] [address] Jun, [facility] [address] [facility] [id number] [address] Jun, [facility] [address] [facility] [id number], [place] [address] May, [facility] [address] [facility] [id number] [address] 10 May, 2010 IMMUNIZATIONS No Known Immunizations SOCIAL HISTORY Never Assessed REASON FOR VISIT f/uSUSIE vasquez PLAN OF CARE Activity Details Follow Up 4 Months, prn Reason: VITAL SIGNS Height 65 in 2018-01-05 Weight 145.0 lbs 2018-01-05 Heart Rate 76 bpm 2018-01-05 Respiratory Rate 18 2018-01-05 BMI 24.13 kg/m2 2018-01-05 Blood pressure systolic 110 mmHg 2018-01-05 Blood pressure diastolic 64 mmHg 2018-01-05 MEDICATIONS Medication Instructions Dosage Frequency Start Date End Date Duration Status Oxybutynin Chloride ER 10 MG (Prior Auth: Rx Ref#:[id number]) 90 Active Abilify 10 MG Orally Once a day 1 tablet 24h Sep, Active Janumet 50-1,000 mg 1 Tablet by Oral route 1 time per day Feb, Not-Taking Carbidopa-Levodopa 25-100 MG TAKE 1 TABLET BY MOUTH THREE TIMES DAILY 10 Active Metformin HCl 500 MG (Prior Auth: Rx Ref#:[id number]) 90 Active Gabapentin 600 MG Orally Once a day 2 tablets 24h Jun, Not- Taking Hydrocodone-Acetaminophen 10-325 mg 1 Tablet by Oral route 4 times per day PRN pain Jan, Active Potassium Citrate ER 10 MEQ (1080 MG) Orally twice a day 1 tablet with meals 12h Not-Taking Trazodone HCl 50 MG Orally Once a day 1 tablet at bedtime 24h 16 May, 2016 90 days Not-Taking Humalog 100 UNIT/ML (Prior Auth: Rx Ref#:[id number]) 25 Active Ambien CR 12.5 MG Orally Once a day 1 tablet at bedtime as needed 24h 12 May, 2015 30 days Not-Taking Hydrochlorothiazide 25 MG Orally Once a day 1 tablet 24h Not- Taking Topiramate 100 MG Orally Twice a day 1 tablet 12h 90 days Active Estradiol 1 mg 1 Tablet by Oral route 1 time per day Jun, Not-Taking Ropinirole HCl 3 MG TAKE 1 TABLET BY MOUTH ONCE DAILY AT BEDTIME 30 Active Lantus SoloStar 100 UNIT/ML (Prior Auth: Rx Ref#:[id number]) 90 Active Magnesium 250 MG Orally twice a day 1 tablet with a meal 12h Not- Taking Prozac 40 MG Orally client requests brand name twice a day 1 capsule 12h November, Active Omeprazole 40 mg 1 Capsule by Oral route 1 time per day Jan, Active Gemfibrozil 600 mg 1 tablet by Oral route 2 times per day Sep, Not-Taking RESULTS No Results PROCEDURES Procedure Date Ordered Result Body Site [facility] VISIT ESTABLISHED PATIENT January 05, 2018 INSTRUCTIONS MEDICATIONS ADMINISTERED No Known Medications [...] 05/19/17 Hospitalization History UTI - Hospital ED [facility] [place] 05/31/17 Hospitalization History UTI 08-06-17
--- OUTSIDE RECORDS SUMMARY | 2018-11-19 07:34 | XMS REPORT ---
Author Author ISABEL NARINDER Organization [facility] Address [address] [place] [address] Care Team Providers Care Ip Litigation Paralegal Name Role Phone ISABEL NARINDER Unavailable PROBLEMS Type Condition ICD9-CM Code [id number] Code Onset Dates Condition Status SNOMED Code Problem Bipolar disorder, current episode depressed, moderate F31.32 Active 178429736 Problem Generalized anxiety disorder F41.1 Active [id number] ALLERGIES No Information ENCOUNTERS Encounter Location Date Diagnosis [facility] [id number] [place] [address] 07509- 4860 May, [facility] [id number] [place] [address] 88788- 8619 Mar, [facility] [id number] [place] [address] 80694- 6976 Mar, [facility] [id number] [place] [address] 60905- 3140 Feb, [facility] [id number] [place] [address] 20348- 0806 Jan, Bipolar disorder, current episode depressed, moderate F31.32 and Generalized anxiety disorder F41.1 [facility] [id number] [place] [address] 17426- 0733 Jan, Bipolar disorder, current episode depressed, moderate F31.32 and Generalized anxiety disorder F41.1 [facility] [id number] [place] [address] 26943- 4893 Jan, Bipolar disorder, current episode depressed, moderate F31.32 [facility] [address] [address] 7535 Jan, Bipolar disorder, current episode depressed, moderate F31.32 [facility] [address] [address] 8368 Jan, Bipolar disorder, current episode depressed, moderate F31.32 and Generalized anxiety disorder F41.1 [facility] [id number] [place] [address] 37857- 4354 Dec, Bipolar disorder, current episode depressed, moderate F31.32 and Generalized anxiety disorder F41.1 [facility] [id number] [place] [address] 24232- 4873 November, Bipolar disorder, current episode depressed, moderate F31.32 and Generalized anxiety disorder F41.1 [facility] [id number] [place] [address] 65729- 2136 November, Bipolar disorder, current episode depressed, moderate F31.32 and Generalized anxiety disorder F41.1 [facility] [id number] [place] [address] 87684- 5955 Oct, Bipolar disorder, current episode depressed, moderate F31.32 and Generalized anxiety disorder F41.1 [facility] [id number] [place] [address] 67485- 7776 Oct, Bipolar disorder, current episode depressed, moderate F31.32 and Generalized anxiety disorder F41.1 [facility] [id number] [place] [address] 96860- 6432 Oct, Bipolar disorder, current episode depressed, moderate F31.32 [facility] [id number] [place] [address] 94545- 0428 Oct, Bipolar disorder, current episode depressed, moderate F31.32 and Generalized anxiety disorder F41.1 [facility] [id number] [place] [address] 97397- 9963 Sep, Bipolar disorder, current episode depressed, moderate F31.32 and Generalized anxiety disorder F41.1 [facility] [id number] [place] [address] 20343- 9960 Aug, Bipolar disorder, current episode depressed, moderate F31.32 [facility] [id number] [place] [address] 78186- 1451 Aug, Bipolar disorder, current episode depressed, moderate F31.32 and Generalized anxiety disorder F41.1 [facility] [id number] [place] [address] 35351- 4799 Jul, Bipolar disorder, current episode depressed, moderate F31.32 and Generalized anxiety disorder F41.1 [facility] [id number] [place] [address] 78666- 3031 Jul, Bipolar disorder, current episode depressed, moderate F31.32 and High risk medication use Z79.899 [facility] [id number] [place] [address] 05384- 4793 Jul, Generalized anxiety disorder F41.1 and Bipolar disorder, current episode depressed, moderate F31.32 [facility] [id number] [place] [address] 01907- 6985 Feb, Bipolar disorder, current episode depressed, moderate F31.32 and Generalized anxiety disorder F41.1 [facility] [id number] [place] [address] 43430- 8676 November, Bipolar disorder, current episode depressed, moderate F31.32 and Generalized anxiety disorder F41.1 [facility] [id number] [place] [address] 39568- 4035 Aug, Bipolar disorder, current episode depressed, moderate F31.32 and Generalized anxiety disorder F41.1 [facility] [id number] [place] [address] 99402- 3522 Aug, [facility] [id number] [place] [address] 28692 -8349 Aug, Dysuria R30.0 and Acute cystitis with hematuria N30.01 [facility] [id number] [place] [address] 86427- 0927 Aug, Dysuria R30.0 [facility] [address], [place] [address]- 6418 Aug, Bipolar disorder, current episode depressed, moderate F31.32 and Generalized anxiety disorder F41.1 [facility] [id number] [place] [address] 81602- 1762 Jul, Bipolar disorder, current episode depressed, moderate F31.32 and Generalized anxiety disorder F41.1 [facility] [id number] [place] [address] 45136- 9847 May, Generalized anxiety disorder F41.1 and Bipolar disorder, current episode depressed, moderate F31.32 [facility] [id number] [place] [address] 42392- 3949 May, Bipolar disorder, current episode depressed, moderate F31.32 and Generalized anxiety disorder F41.1 [facility] [id number] [place] [address] 50496- 2846 Apr, [facility] [id number] [place] [address] 45890- 4425 Apr, [facility] [id number] [place] [address] 77711- 3845 Apr, Bipolar disorder, current episode depressed, moderate F31.32 and Generalized anxiety disorder F41.1 [facility] [id number] [place] [address] 38875- 7006 Apr, [facility] [id number] [place] [address] 84642- 5994 Apr, Adjustment disorder with mixed anxiety and depressed mood F43.23 [facility] [id number] [place] [address] 70761- 8620 Mar, Bipolar disorder, current episode depressed, moderate F31.32 and Generalized anxiety disorder F41.1 [facility] [address] [address]- 6217 Feb, Bipolar disorder, current episode depressed, moderate F31.32 and Generalized anxiety disorder F41.1 [facility] [id number] [address]- 3793 Feb, [facility] [address], [place] [address]- 2360 Feb, Bipolar disorder, current episode depressed, moderate F31.32 and Generalized anxiety disorder F41.1 [facility] [id number] [address]- 2861 Feb, Generalized anxiety disorder F41.1 and Bipolar disorder, current episode depressed, moderate F31.32 [facility] [id number] [address]- 4163 Jan, Bipolar disorder, current episode depressed, moderate F31.32 and Generalized anxiety disorder F41.1 [facility] [address], [place] [address]- 2357 Jan, Bipolar disorder, current episode depressed, moderate F31.32 and Generalized anxiety disorder F41.1 [facility] [id number] [place] [address] 41689- 3498 Dec, Generalized anxiety disorder F41.1 and Bipolar disorder, current episode depressed, moderate F31.32 [facility] [id number] [address]- 4613 Dec, Bipolar disorder, current episode depressed, moderate F31.32 and Generalized anxiety disorder F41.1 [facility] [id number] [address]- 4990 November, Bipolar disorder, current episode depressed, moderate F31.32 and Generalized anxiety disorder F41.1 [facility] [id number] [address]- 7331 November, Bipolar disorder, current episode depressed, moderate F31.32 and Generalized anxiety disorder F41.1 [facility] [id number] [address]- 4967 November, Generalized anxiety disorder F41.1 and Bipolar disorder, 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 [facility] [id number] [place] [address] 95708- 6497 Oct, Bipolar disorder, current episode depressed, moderate F31.32 and Generalized anxiety disorder F41.1 [facility] [id number] [place] [address] 09550- 6010 Oct, Bipolar disorder, current episode depressed, moderate F31.32 and Generalized anxiety disorder F41.1 [facility] [id number] [place] [address] 07666- 0944 Oct, Bipolar disorder, current episode depressed, moderate F31.32 and Generalized anxiety disorder F41.1 [facility] [id number] [place] [address] 77712- 4841 Oct, Bipolar disorder, current episode depressed, moderate F31.32 and Generalized anxiety disorder F41.1 [facility] [id number] [place] [address] 90826- 6419 Sep, Bipolar disorder, current episode depressed, moderate F31.32 and Generalized anxiety disorder F41.1 [facility] [id number] [place] [address] 52725- 1082 Sep, Bipolar disorder, current episode depressed, moderate F31.32 and Generalized anxiety disorder F41.1 [facility] [id number] [place] [address] 89180- 8185 Sep, Bipolar disorder, current episode depressed, moderate F31.32 and Generalized anxiety disorder F41.1 [facility] [address], [place] [address]- 7216 Sep, [facility] [id number] [place] [address] 73319- 1575 Sep, Generalized anxiety disorder F41.1 and Bipolar disorder, current episode depressed, severe, without psychotic features F31.4 [facility] [id number] [place] [address] 09798- 1645 Aug, Bipolar disorder, 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 and Generalized anxiety disorder F41.1 [facility] [address] [facility] [id number] [place] [address] 60255- 6185 Aug, Bipolar disorder, 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 and Generalized anxiety disorder F41.1 [facility] [address] [facility] [id number] [address]- 3791 Jul, Bipolar disorder, 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 and Generalized anxiety disorder F41.1 [facility] [id number] [place] [address] 87011- 8407 Jul, Bipolar disorder, 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 and Generalized anxiety disorder F41.1 [facility] [id number] [place] [address] 64432- 5744 Jun, [facility] [id number] [place] [address] 07584- 2366 Jun, Bipolar disorder, 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 and Generalized anxiety disorder F41.1 [facility] [id number] [place] [address] 56953- 2554 Jun, Bipolar disorder, 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 and Generalized anxiety disorder F41.1 [facility] [id number] [place] [address] 54911- 3494 Jun, Generalized anxiety disorder F41.1 and Bipolar disorder, 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 [facility] [id number] [place] [address] 11843- 1316 May, Generalized anxiety disorder F41.1 and Bipolar disorder, current episode depressed, severe, without psychotic features F31.4 [facility] [id number] [place] [address] 95890- 0316 May, Bipolar disorder, 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 [facility] [id number] [place] [address] 79454- 8333 May, [facility] [id number] [place] [address] 97505- 6665 May, Bipolar disorder, unspecified F31.9 ; Generalized anxiety disorder F41.1 and Insomnia G47.00 [facility] [id number] [place] [address] 72254- 6104 May, Bipolar disorder, current episode depressed, severe, without psychotic features F31.4 and Generalized anxiety disorder F41.1 [facility] [id number] [place] [address] 46227- 8572 May, [facility] [id number] [place] [address] 46213- 0163 Apr, Bipolar disorder, current episode depressed, severe, without psychotic features F31.4 and Generalized anxiety disorder F41.1 [facility] [id number] [place] [address] 83759- 6566 Apr, Bipolar disorder, current episode depressed, severe, without psychotic features F31.4 [facility] [id number] [place] [address] 32525- 7384 Apr, Bipolar disorder, current episode depressed, severe, without psychotic features F31.4 and Generalized anxiety disorder F41.1 [facility] [id number] [place] [address] 06193- 6937 Mar, Bipolar disorder, unspecified 296.80 [facility] [id number] [place] [address] 79090- 9227 Mar, Bipolar disorder, unspecified 296.80 ; Generalized anxiety disorder 300.02 and Depression, major, recurrent 296.30 [facility] [id number] [place] [address] 50265- 7546 Feb, Bipolar disorder, unspecified 296.80 [facility] [id number] [place] [address] 36126- 9013 Jan, Bipolar disorder, unspecified 296.80 [facility] [id number] [place] [address] 55302- 6004 Dec, Bipolar disorder, unspecified 296.80 [place] [address] [address]- 2300 Dec, Bipolar disorder, unspecified 296.80 ; Major depressive disorder, recurrent episode, unspecified 296.30 and Generalized anxiety disorder 300.02 [facility] [address] [place] [address]- 9666 November, Bipolar disorder, unspecified 296.80 [facility] [address] [address]- 8426 Oct, [facility] [id number] [address]- 7615 Oct, [facility] [address], [place] [address]- 2596 Sep, [facility] [address], [place] [address]- 5289 Sep, [facility] [address], [place] [address]- 7327 Jul, [facility] [address], [place] [address]- 3396 Jul, [facility] [address] [address]- 5041 Jul, [facility] [address], [place] [address]- 9019 Jul, [facility] [address], [place] [address]- 6165 Jul, [facility] [id number], [place] [address]- 6307 Jul, [facility] [address], [place] [address]- 2126 Jun, [facility] [id number] [address]- 8406 Jun, [facility] [address], [place] [address]- 6682 May, [facility] [place] [facility] [address] [id number] [place] [address]- 7117 May, [facility] [place] [facility] [address] [id number] [place] [address]- 5209 May, [facility] [place] [facility] [address] [id number] [place] [address]- 6353 May, [facility] [place] [facility] [address] [id number] [place] [address]- 4417 Apr, [facility] [place] [facility] [address] [id number] [place] [address]- 3852 Apr, [facility] [place] [facility] [address] [id number] [place] [address]- 9178 Mar, [facility] [place] [facility] [address] [id number] [place] [address]- 8254 Mar, [facility] [place] [facility] [address] [id number] [place] [address]- 5763 Feb, [facility] [place] [facility] [address] [id number] [place] [address]- 7176 Feb, [facility] [place] [facility] [address] [id number] [place] [address]- 7242 Feb, [facility] [place] [facility] [address] [id number] [place] [address]- 5112 Feb, [facility] [place] [facility] [address] [id number] [place] [address]- 5007 Feb, [facility] [place] [facility] [address] [id number] [place] [address]- 4799 Feb, [facility] [place] [facility] [address] [id number] [place] [address]- 4777 Feb, [facility] [place] [facility] [address] [id number] [place] [address]- 8130 Feb, [facility] [place] [facility] [address] [id number] [place] [address]- 5191 Feb, [facility] [place] [facility] [address] [id number] [place] [address]- 2127 Feb, [facility] [place] [facility] [address] [id number] [place] [address]- 3898 Feb, [facility] [place] [facility] [address] [id number] [place] [address]- 7527 Feb, [facility] [place] [facility] [address] [id number] [place] [address]- 2384 Feb, [facility] [place] [facility] [address] [id number] [place] [address]- 8945 Feb, [facility] [place] [facility] [address] [id number] [place] [address]- 5312 Jan, [facility] [place] [facility] [address] [id number] [place] [address]- 7048 Jan, [facility] [place] [facility] [address] [id number] [place] [address]- 3398 Jan, [facility] [place] [facility] [address] [id number] [place] [address]- 0706 Jan, [facility] [place] [facility] [address] [id number] [place] [address]- 8761 Jan, [facility] [place] [facility] [address] [id number] [place] [address]- 6556 Jan, [facility] [place] [facility] [address] [id number] [place] [address]- 4681 Jan, [facility] [place] [facility] [address] [id number] [place] [address]- 8286 Jan, [facility] [place] [facility] [address] [id number] [place] [address]- 7771 Dec, [facility] [place] [facility] [address] [id number] [place] [address]- 7066 Dec, [facility] [place] [facility] [address] [id number] [place] [address]- 3867 Dec, [facility] [place] [facility] [address] [id number] [place] [address]- 0851 Dec, [facility] [place] [facility] [address] [id number] [place] [address]- 0878 Dec, [facility] [place] [facility] [address] [id number] [place] [address]- 5710 Dec, [facility] [place] [facility] [address] [id number] [place] [address]- 5993 November, [facility] [place] [facility] [address] [id number] [place] [address]- 8235 November, [facility] [place] [facility] [address] [id number] [place] [address]- 0479 November, [facility] [place] [facility] [address] [id number] [place] [address]- 9325 November, [facility] [place] [facility] [address] [id number] [place] [address]- 5699 Oct, [facility] [place] [facility] [address] [id number] [place] [address]- 7765 Oct, [facility] [place] [facility] [address] [id number] [place] [address]- 9291 Sep, [facility] [place] [facility] [address] [id number] [place] [address]- 2049 Sep, [facility] [place] [facility] [address] [id number] [place] [address]- 4284 Sep, [facility] [place] [facility] [address] [id number] [place] [address]- 3529 Sep, [facility] [place] [facility] [address] [id number] [place] [address]- 7988 Sep, [facility] [place] [facility] [address] [id number] [place] [address]- 8781 Sep, [facility] [place] [facility] [address] [id number] [place] [address]- 7288 Sep, [facility] [place] [facility] [address] [id number] [place] [address]- 1012 Sep, [facility] [place] [facility] [address] [id number] [place] [address]- 9442 Aug, [facility] [place] [facility] [address] [id number] [place] [address]- 6563 Aug, [facility] [place] [facility] [address] [id number] [place] [address]- 7183 Aug, [facility] [place] [facility] [address] [id number] [place] [address]- 0730 Aug, [facility] [place] [facility] [address] [id number] [place] [address]- 8571 Aug, [facility] [place] [facility] [address] [id number] [place] [address]- 8727 Aug, [facility] [place] [facility] [address] [id number] [place] [address]- 2196 Aug, [facility] [place] [facility] [address] [id number] [place] [address]- 0656 Aug, [facility] [place] [facility] [address] [id number] [place] [address]- 1951 Jul, [facility] [place] [facility] [address] [id number] [place] [address]- 3871 Jul, [facility] [place] [facility] [address] [id number] [place] [address]- 5373 Jul, [facility] [place] [facility] [address] [id number] [place] [address]- 4663 Jul, [facility] [place] [facility] [address] [id number] [place] [address]- 4925 Jul, [facility] [place] [facility] [address] [id number] [place] [address] Jul, [facility] [place] [facility] [address] [id number] [place] [address] Jul, [facility] [place] [facility] [address] [id number] [place] [address] Jul, [facility] [place] [facility] [address] [id number] [place] [address] Jun, [facility] [place] [facility] [address] [id number] [place] [address] Jun, [facility] [place] [facility] [address] [id number] [place] [address] Jun, [facility] [place] [facility] [address] [id number] [place] [address] Jun, [facility] [place] [facility] [address] [id number] [place] [address] May, [facility] [place] [facility] [address] [id number] [place] [address] May, [facility] [place] [facility] [address] [id number] [place] [address] May, [facility] [place] [facility] [address] [id number] [place] [address] May, [facility] [place] [facility] [address] [id number], [place] [address] May, [facility] [place] [facility] [address] [id number] [place] [address] May, [facility] [place] [facility] [address] [id number] [place] [address] May, [facility] [place] [facility] [address] [id number] [place] [address] May, [facility] [place] [facility] [address] [id number] [place] [address] Apr, 2012 [facility] [place] [facility] [address] [id number] [place] [address] Apr, 2012 [facility] [place] [facility] [address] [id number] [place] [address] Apr, [facility] [place] [facility] [address] [id number] [place] [address] Apr, [facility] [place] [facility] [address] [id number] [place] [address] Apr, [facility] [place] [facility] [address] [id number] [place] [address] Apr, [facility] [place] [facility] [address] [id number] [place] [address] Apr, [facility] [place] [facility] [address] [id number] [place] [address] Apr, [facility] [place] [facility] [address] [id number] [place] [address] Apr, [facility] [place] [facility] [address] [id number] [place] [address] Apr, [facility] [place] [facility] [address] [id number] [place] [address] Apr, [facility] [place] [facility] [address] [id number] [place] [address] Mar, [facility] [place] [facility] [address] [id number], [place] [address] Feb, [facility] [place] [facility] [address] [id number] [place] [address] Feb, [facility] [place] [facility] [address] [id number], [place] [address] Feb, [facility] [place] [facility] [address] [id number], [place] [address] Jan, [facility] [place] [facility] [address] [id number] [place] [address] 28 Dec, 2012 [facility] [address] [id number] [place] [address] 17 Dec, 2012 [facility] [place] [facility] [address] [id number] [place] [address] 14 Dec, 2012 [facility] [address] [id number] [place] [address] November, [facility] [address] [id number] [place] [address] November, [facility] [address] [id number] [place] [address] November[facility] [address] [id number] [place] [address] Oct, [facility] [address] [id number] [place] [address] Oct, [facility] [address] [id number] [place] [address] Oct, [facility] [address] [id number] [place] [address] Sep, [facility] [address] [id number] [place] [address] Sep, [facility] [address] [id number] [place] [address] Sep, [facility] [place] [facility] [address] [id number] [place] [address] Aug, [facility] [place] [facility] [address] [id number] [place] [address] Jul, [facility] [place] [facility] [address] [id number] [place] [address] Jul, [facility] [place] [facility] [address] [id number] [place] [address] Jun, [facility] [place] [facility] [address] [id number] [place] [address] Jun, [facility] [place] [facility] [address] [id number] [place] [address] May, [facility] [place] [facility] [address] [id number] [place] [address] May, [facility] [place] [facility] [address] [id number] [place] [address] May, [facility] [place] [facility] [address] [id number] [place] [address] May, [facility] [place] [facility] [address] [id number] [place] [address] May, [facility] [place] [facility] [address] [id number] [place] [address] May, [facility] [place] [facility] [address] [id number], [place] [address] Apr, [facility] [place] [facility] [address] [id number] [place] [address] Feb, [facility] [place] [facility] [address] [id number], [place] [address] Dec, [facility] [place] [facility] [address] [id number], [place] [address] November, [facility] [place] [facility] [address] [id number], [place] [address] Oct, [facility] [place] [facility] [address] [id number] [place] [address] Oct, [facility] [place] [facility] [address] [id number], [place] [address] Oct, [facility] [place] [facility] [address] [id number] [place] [address] Sep, [facility] [place] [facility] [address] [id number] [place] [address] 14 Sep, 2011 [facility] [address] [id number] [place] [address] 15 Aug, 2011 [facility] [address] [id number] [place] [address] 24 Jul, 2011 [facility] [address] [facility] [id number] [place] [address] Jul, [facility] [address] [id number] [place] [address] Jun, [facility] [address] [facility] [id number] [place] [address], [place] [address]- 47[address] Jun, [facility] [address] [facility] [id number] [place] [address] 16 May, 2011 [facility] [id number] [place] [address], [place] [address]- [address] May, [facility] [address] [facility] [id number] [place] [address] Apr, [facility] [id number] [place] [place] [address] Mar, [facility] [address] [facility] [id number] [place] [address] Jan, [facility] [address] [facility] [id number] [place] [address] Dec, [facility] [address] [facility] [id number], [place] [address] 17 Jun, 2010 [facility] [address] [facility] [id number] [place] [address] 13 Jun, 2010 [facility] [address] [facility] [id number] [place] [address] 19 May, 2010 [facility] [address] [facility] [id number], [place] [address] May, IMMUNIZATIONS No Known Immunizations SOCIAL HISTORY Never Assessed REASON FOR VISIT PA-Prozac PLAN OF CARE VITAL SIGNS MEDICATIONS Medication Instructions Dosage Frequency Start Date End Date Duration Status Prozac 40 mg Orally client requests brand name twice a day 1 capsule 12h November, 30 days Active RESULTS No Results PROCEDURES No Known procedures [...] 05/19/17 Hospitalization History UTI - Hospital ED [facility] 05/31/17 Hospitalization History UTI 08-06-17
--- OUTSIDE RECORDS SUMMARY | 2018-11-19 07:34 | XMS REPORT ---
Author Author RYNE CAMP Organization [facility] Address [address] [place] [address] Care Team Providers Care Fourth Mate Name Role Phone RYNE CAMP Unavailable PROBLEMS Type Condition ICD9-CM Code [id number] Code Onset Dates Condition Status SNOMED Code Problem Bipolar disorder, current episode depressed, moderate F31.32 Active 317402376 Problem Generalized anxiety disorder F41.1 Active [id number] ALLERGIES No Information ENCOUNTERS Encounter Location Date Diagnosis [facility] [id number] [place] [address] 69292- 0356 May, [facility] [id number] [place] [address] 81457- 6106 Mar, [facility] [id number] [place] [address] 96143- 2216 Mar, [facility] [id number] [place] [address] 38140- 0021 Feb, [facility] [id number] [place] [address] 27117- 5334 Jan, Bipolar disorder, current episode depressed, moderate F31.32 and Generalized anxiety disorder F41.1 [facility] [id number] [place] [address] 04710- 7497 Jan, Bipolar disorder, current episode depressed, moderate F31.32 and Generalized anxiety disorder F41.1 [facility] [id number] [place] [address] 32593- 7514 Jan, Bipolar disorder, current episode depressed, moderate F31.32 [facility] [id number] [address]- 4009 Jan, Bipolar disorder, current episode depressed, moderate F31.32 [facility] [id number] [place] [address] 47032- 8279 Jan, Bipolar disorder, current episode depressed, moderate F31.32 and Generalized anxiety disorder F41.1 [facility] [id number] [place] [address] Dec, Bipolar disorder, current episode depressed, moderate F31.32 and Generalized anxiety disorder F41.1 [facility] [id number] [place] [address] 30064- 0344 November, Bipolar disorder, current episode depressed, moderate F31.32 and Generalized anxiety disorder F41.1 [facility] [id number] [place] [address] 03585- 8934 November, Bipolar disorder, current episode depressed, moderate F31.32 and Generalized anxiety disorder F41.1 [facility] [id number] [place] [address] 57922- 0509 Oct, Bipolar disorder, current episode depressed, moderate F31.32 and Generalized anxiety disorder F41.1 [facility] [id number] [place] [address] 12632- 4520 Oct, Bipolar disorder, current episode depressed, moderate F31.32 and Generalized anxiety disorder F41.1 [facility] [id number] [place] [address] 09797- 4302 Oct, Bipolar disorder, current episode depressed, moderate F31.32 [facility] [id number] [place] [address] 83599- 2995 Oct, Bipolar disorder, current episode depressed, moderate F31.32 and Generalized anxiety disorder F41.1 [facility] [id number] [place] [address] 30986- 0327 Sep, Bipolar disorder, current episode depressed, moderate F31.32 and Generalized anxiety disorder F41.1 [facility] [address] [address]- 8210 Aug, Bipolar disorder, current episode depressed, moderate F31.32 [facility] [id number] [place] [address] 69125- 5989 Aug, Bipolar disorder, current episode depressed, moderate F31.32 and Generalized anxiety disorder F41.1 [facility] [id number] [place] [address] 65429- 6430 Jul, Bipolar disorder, current episode depressed, moderate F31.32 and Generalized anxiety disorder F41.1 [facility] [id number] [place] [address] 11145- 1061 Jul, Bipolar disorder, current episode depressed, moderate F31.32 and High risk medication use Z79.899 [facility] [id number] [place] [address] 07758- 2871 Jul, Generalized anxiety disorder F41.1 and Bipolar disorder, current episode depressed, moderate F31.32 [facility] [id number] [place] [address] 12020- 8942 Feb, Bipolar disorder, current episode depressed, moderate F31.32 and Generalized anxiety disorder F41.1 [facility] [id number] [place] [address] 88415- 4226 November, Bipolar disorder, current episode depressed, moderate F31.32 and Generalized anxiety disorder F41.1 [facility] [id number] [place] [address] 99096- 7992 Aug, Bipolar disorder, current episode depressed, moderate F31.32 and Generalized anxiety disorder F41.1 [facility] [id number] [place] [address] 40663- 2130 Aug, [facility] [address] 73712 -6147 Aug, Dysuria R30.0 and Acute cystitis with hematuria N30.01 [facility] [id number] [place] [address] 43286- 0540 Aug, Dysuria R30.0 [facility] [id number] [place] [address] 00111- 2516 Aug, Bipolar disorder, current episode depressed, moderate F31.32 and Generalized anxiety disorder F41.1 [facility] [id number] [place] [address] 274124- 7074 Jul, Bipolar disorder, current episode depressed, moderate F31.32 and Generalized anxiety disorder F41.1 [facility] [id number] [place] [address] 98882- 9149 May, Generalized anxiety disorder F41.1 and Bipolar disorder, current episode depressed, moderate F31.32 [facility] [id number] [place] [address] 16484- 2735 May, Bipolar disorder, current episode depressed, moderate F31.32 and Generalized anxiety disorder F41.1 [facility] [id number] [place] [address] 04383- 5111 Apr, [facility] [id number] [place] [address] 68854- 7506 Apr, [facility] [id number] [place] [address] 86263- 9918 Apr, Bipolar disorder, current episode depressed, moderate F31.32 and Generalized anxiety disorder F41.1 [facility] [id number] [place] [address] 83770- 3902 Apr, [facility] [id number] [place] [address] 19026- 3966 Apr, Adjustment disorder with mixed anxiety and depressed mood F43.23 [facility] [id number] [place] [address] 42454- 3520 Mar, Bipolar disorder, current episode depressed, moderate F31.32 and Generalized anxiety disorder F41.1 [facility] [address] [place] [address] 20600- 2995 Feb, Bipolar disorder, current episode depressed, moderate F31.32 and Generalized anxiety disorder F41.1 [facility] [address] [facility] [id number] [address] 1996 Feb, [facility] [id number] [place] [address] 81206- 4528 Feb, Bipolar disorder, current episode depressed, moderate F31.32 and Generalized anxiety disorder F41.1 [facility] [id number] [place] [address] 84998- 7479 Feb, Generalized anxiety disorder F41.1 and Bipolar disorder, current episode depressed, moderate F31.32 [facility] [id number] [place] [address] 59632- 7589 Jan, Bipolar disorder, current episode depressed, moderate F31.32 and Generalized anxiety disorder F41.1 [facility] [id number] [place] [address] 41079- 1498 Jan, Bipolar disorder, current episode depressed, moderate F31.32 and Generalized anxiety disorder F41.1 [facility] [id number] [address]- 0305 Dec, Generalized anxiety disorder F41.1 and Bipolar disorder, current episode depressed, moderate F31.32 [facility] [id number] [place] [address] 62382- 3238 Dec, Bipolar disorder, current episode depressed, moderate F31.32 and Generalized anxiety disorder F41.1 [facility] [id number] [address]- 0881 November, Bipolar disorder, current episode depressed, moderate F31.32 and Generalized anxiety disorder F41.1 [facility] [id number] [address]- 8168 November, Bipolar disorder, current episode depressed, moderate F31.32 and Generalized anxiety disorder F41.1 [facility] [id number] [address]- 6767 November, Generalized anxiety disorder F41.1 and Bipolar disorder, 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 [facility] [id number] [place] [address] 17262- 6107 Oct, Bipolar disorder, current episode depressed, moderate F31.32 and Generalized anxiety disorder F41.1 [facility] [address] [place] [address] 84551- 5606 Oct, Bipolar disorder, current episode depressed, moderate F31.32 and Generalized anxiety disorder F41.1 [facility] [id number] [place] [address] 15741- 6764 Oct, Bipolar disorder, current episode depressed, moderate F31.32 and Generalized anxiety disorder F41.1 [facility] [id number] [place] [address] 36624- 7948 Oct, Bipolar disorder, current episode depressed, moderate F31.32 and Generalized anxiety disorder F41.1 [facility] [id number] [place] [address] 36324- 4550 Sep, Bipolar disorder, current episode depressed, moderate F31.32 and Generalized anxiety disorder F41.1 [facility] [address] [place] [address] 46092- 0792 Sep, Bipolar disorder, current episode depressed, moderate F31.32 and Generalized anxiety disorder F41.1 [facility] [address] [place] [address] 28669- 2310 Sep, Bipolar disorder, current episode depressed, moderate F31.32 and Generalized anxiety disorder F41.1 [facility] [address] [place] [address] 48620- 7125 Sep, [facility] [id number] [place] [address] 50311- 1451 Sep, Generalized anxiety disorder F41.1 and Bipolar disorder, current episode depressed, severe, without psychotic features F31.4 [facility] [address] [place] [address] 31644- 2974 Aug, Bipolar disorder, 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 and Generalized anxiety disorder F41.1 [facility] [id number] [address]- 6515 Aug, Bipolar disorder, 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 and Generalized anxiety disorder F41.1 [facility] [address] [facility] [id number] [address]- 2384 Jul, Bipolar disorder, 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 and Generalized anxiety disorder F41.1 [facility] [id number] [place] [address] 68187- 2604 Jul, Bipolar disorder, 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 and Generalized anxiety disorder F41.1 [facility] [id number] [place] [address] 94803- 5849 Jun, [facility] [id number] [place] [address] 12219- 9460 Jun, Bipolar disorder, 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 and Generalized anxiety disorder F41.1 [facility] [address] [address]- 8890 Jun, Bipolar disorder, 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 and Generalized anxiety disorder F41.1 [facility] [address] [place] [address] 83841- 4597 Jun, Generalized anxiety disorder F41.1 and Bipolar disorder, 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 [facility] [address] [place] [address] 12476- 5670 May, Generalized anxiety disorder F41.1 and Bipolar disorder, current episode depressed, severe, without psychotic features F31.4 [facility] [id number] [place] [address] 51932- 8043 May, Bipolar disorder, 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 [facility] [id number] [address]- 5672 May, [facility] [id number] [place] [address] 84176- 3267 May, Bipolar disorder, unspecified F31.9 ; Generalized anxiety disorder F41.1 and Insomnia G47.00 [facility] [id number] [place] [address] 40185- 6759 May, Bipolar disorder, current episode depressed, severe, without psychotic features F31.4 and Generalized anxiety disorder F41.1 [facility] [id number] [place] [address] 21580- 5969 May, [facility] [id number] [place] [address] 24926- 9610 Apr, Bipolar disorder, current episode depressed, severe, without psychotic features F31.4 and Generalized anxiety disorder F41.1 [facility] [id number] [place] [address] 77167- 0204 Apr, Bipolar disorder, current episode depressed, severe, without psychotic features F31.4 [facility] [id number] [place] [address] 88054- 4211 Apr, Bipolar disorder, current episode depressed, severe, without psychotic features F31.4 and Generalized anxiety disorder F41.1 [facility] [id number] [place] [address] 61754- 0568 Mar, Bipolar disorder, unspecified 296.80 [facility] [id number] [place] [address] 93174- 6894 Mar, Bipolar disorder, unspecified 296.80 ; Generalized anxiety disorder 300.02 and Depression, major, recurrent 296.30 [facility] [id number] [place] [address] 29901- 0512 Feb, Bipolar disorder, unspecified 296.80 [facility] [id number] [place] [address] 67664- 7733 Jan, Bipolar disorder, unspecified 296.80 [facility] [id number] [place] [address] 36756- 6537 Dec, Bipolar disorder, unspecified 296.80 [facility] [address] [address]- 5003 Dec, Bipolar disorder, unspecified 296.80 ; Major depressive disorder, recurrent episode, unspecified 296.30 and Generalized anxiety disorder 300.02 [facility] [address] [place] [address]- 5676 November, Bipolar disorder, unspecified 296.80 [facility] [address] [place] [address]- 8149 Oct, [facility] [id number] [address]- 7798 Oct, [facility] [id number] [place] [address] 66405- 4509 Sep, [facility] [address] [address]- 6116 Sep, [facility] [address] [address]- 9026 Jul, [facility] [address] [address]- 7299 Jul, [facility] [address] 0657 Jul, [facility] [address] [address]- 5831 Jul, [facility] [address] [address] 5590 Jul, [facility] [address] [address]- 0946 Jul, [facility] [address] [address]- 9787 Jun, [facility] [address] [address]- 1410 Jun, [facility] [address] [address]- 3665 May, [facility] [place] [facility] [address] [id number] [place] [address]- 4087 May, [facility] [place] [facility] [address] [id number] [place] [address]- 4624 May, [facility] [place] [facility] [address] [id number] [place] [address]- 0056 May, [facility] [place] [facility] [address] [id number] [place] [address]- 4444 Apr, [facility] [place] [facility] [address] [id number] [place] [address]- 9614 Apr, [facility] [place] [facility] [address] [id number] [place] [address]- 1199 Mar, [facility] [place] [facility] [address] [id number] [place] [address]- 8398 Mar, [facility] [place] [facility] [address] [id number] [place] [address]- 9813 Feb, [facility] [place] [facility] [address] [id number] [place] [address]- 0762 Feb, [facility] [place] [facility] [address] [id number] [place] [address]- 5557 Feb, [facility] [place] [facility] [address] [id number] [address]- 5685 Feb, [facility] [place] [facility] [address] [id number] [address]- 6359 Feb, [facility] [place] [facility] [address] [id number] [place] [address]- 6363 Feb, [facility] [place] [facility] [address] [id number], [place] [address]- 1377 Feb, [facility] [place] [facility] [address] [id number] [place] [address]- 8304 Feb, [facility] [place] [facility] [address] [id number] [place] [address]- 6231 Feb, [facility] [place] [facility] [address] [id number] [place] [address]- 4679 Feb, [facility] [place] [facility] [address] [id number] [place] [address]- 2260 Feb, [facility] [place] [facility] [address] [id number] [place] [address]- 7686 Feb, [facility] [place] [facility] [address] [id number] [place] [address]- 3519 Feb, [facility] [place] [facility] [address] [id number] [place] [address]- 8177 Feb, [facility] [place] [facility] [address] [id number] [place] [address]- 2206 Jan, [facility] [place] [facility] [address] [id number] [place] [address]- 0353 Jan, [facility] [place] [facility] [address] [id number] [place] [address]- 1674 Jan, [facility] [place] [facility] [address] [id number] [place] [address]- 0643 Jan, [facility] [place] [facility] [address] [id number] [place] [address]- 4511 Jan, [facility] [place] [facility] [address] [id number] [place] [address]- 2182 Jan, [facility] [place] [facility] [address] [id number] [place] [address]- 8743 Jan, [facility] [place] [facility] [address] [id number] [place] [address]- 9550 Jan, [facility] [place] [facility] [address] [id number] [place] [address]- 6114 Dec, [facility] [place] [facility] [address] [id number] [place] [address]- 5941 Dec, [facility] [place] [facility] [address] [id number] [place] [address]- 8183 Dec, [facility] [place] [facility] [address] [id number] [place] [address]- 4548 Dec, [facility] [place] [facility] [address] [id number] [place] [address]- 0493 Dec, [facility] [place] [facility] [address] [id number] [place] [address]- 2681 Dec, [facility] [place] [facility] [address] [id number] [place] [address]- 5550 November, [facility] [place] [facility] [address] [id number] [place] [address]- 1084 November, [facility] [place] [facility] [address] [id number] [place] [address]- 7561 November, [facility] [place] [facility] [address] [id number] [place] [address]- 6237 November, [facility] [place] [facility] [address] [id number] [place] [address]- 8195 Oct, [facility] [place] [facility] [address] [id number] [place] [address]- 6901 Oct, [facility] [place] [facility] [address] [id number] [place] [address]- 1851 Sep, [facility] [place] [facility] [address] [id number] [place] [address]- 8576 Sep, [facility] [place] [facility] [address] [id number] [place] [address]- 4756 Sep, [facility] [place] [facility] [address] [id number] [place] [address]- 9365 Sep, [facility] [place] [facility] [address] [id number] [place] 4815 Sep, [facility] [place] [facility] [address] [id number] [place] [address]- 6363 Sep, [facility] [place] [facility] [address] [id number] [place] [address]- 1615 Sep, [facility] [place] [facility] [address] [id number] [place] [address]- 3173 Sep, [facility] [place] [facility] [address] [id number] [place] [address]- 9530 Aug, [facility] [place] [facility] [address] [id number] [place] [address]- 5101 Aug, [facility] [place] [facility] [address] [id number] [place] [address]- 8634 Aug, [facility] [place] [facility] [address] [id number] [place] [address]- 5344 Aug, [facility] [place] [facility] [address] [id number] [place] [address]- 8598 Aug, [facility] [place] [facility] [address] [id number] [place] [address]- 7146 Aug, [facility] [place] [facility] [address] [id number] [place] [address]- 4818 Aug, [facility] [place] [facility] [address] [facility] [id number] [place] [address]- 2260 Aug, [facility] [place] [facility] [address] [id number] [place] [address]- 9939 Jul, [facility] [place] [facility] [address] [id number] [place] [address]- 9682 Jul, [facility] [place] [facility] [address] [id number] [place] [address]- 3386 Jul, [facility] [place] [facility] [address] [id number] [place] [address]- 7779 Jul, [facility] [place] [facility] [address] [id number] [place] [address]- 8014 Jul, [facility] [place] [facility] [address] [id number] [place] [address]- 0022 Jul, [facility] [address] [id number] [place] [address] Jul, [facility] [address] [id number] [place] [address] Jul, [facility] [address] [id number] [place] [address] Jun, [facility] [address] [id number] [place] [address] Jun, [facility] [address] [id number] [place] [address] Jun, [facility] [address] [id number] [place] [address] Jun, [facility] [address] [id number] [place] [address] May, [facility] [address] [id number] [place] [address] May, [facility] [address] [id number] [place] [address] May, [facility] [place] [facility] [address] [id number] [place] [address] May, [facility] [place] [facility] [address] [id number], [place] [address] May, [facility] [place] [facility] [address] [id number] [place] [address] May, [facility] [place] [facility] [address] [id number] [place] [address] May, [facility] [place] [facility] [address] [id number] [place] [address] May, [facility] [place] [facility] [address] [id number], [place] [address] Apr, [facility] [place] [facility] [address] [id number] [place] [address] Apr, [facility] [place] [facility] [address] [id number] [place] [address] Apr, [facility] [place] [facility] [address] [id number] [place] [address] Apr, [facility] [place] [facility] [address] [id number] [place] [address] Apr, [facility] [place] [facility] [address] [id number] [place] [address] Apr, [facility] [place] [facility] [address] [id number] [place] [address]- [address] Apr, [facility] [place] [facility] [address] [id number] [place] [address] Apr, [facility] [place] [facility] [address] [id number] [place] [address] Apr, [facility] [place] [facility] [address] [id number] [place] [address] Apr, [facility] [place] [facility] [address] [id number] [place] [address] Apr, [facility] [place] [facility] [address] [id number], [place] [address] Mar, [facility] [place] [facility] [address] [id number], [place] [address] Feb, [facility] [place] [facility] [address] [id number] [place] [address] Feb, [facility] [place] [facility] [address] [id number] [place] [address] Feb, [facility] [place] [facility] [address] [id number] [place] [address] Jan, [facility] [place] [facility] [address] [id number] [place] [address] 28 Dec, 2012 [facility] [address] [id number] [place] [address] 17 Dec, 2012 [facility] [address] [id number] [place] [address] 14 Dec, 2012 [facility] [address] [id number] [place] [address] November, [facility] [address] [id number] [place] [address] November, [facility] [address] [id number] [place] [address] November, [facility] [address] [id number] [place] [address] Oct, [facility] [address] [id number] [place] [address] Oct, [facility] [address] [id number] [place] [address] Oct, [facility] [address] [id number] [place] [address] Sep, [facility] [address] [id number] [place] [address] Sep, [facility] [address] [id number] [place] [address] Sep, [facility] [address] [id number] [place] [address] Aug, [facility] [address] [id number] [place] [address] Jul, [facility] [address] [id number] [place] [address] Jul, [facility] [address] [id number] [place] [address] Jun, [facility] [place] [facility] [address] [id number] [place] [address] Jun, [facility] [place] [facility] [address] [id number] [place] [address] May, [facility] [place] [facility] [address] [id number] [place] [address] May, [facility] [place] [facility] [address] [id number] [place] [address] May, [facility] [place] [facility] [address] [id number] [place] [address]83 May, [facility] [place] [facility] [address] [id number] [place] [address] May, [facility] [place] [facility] [address] [id number] [place] [address] May, [facility] [place] [facility] [address] [id number] [place] [address] Apr, [facility] [place] [facility] [address] [id number] [place] [address] Feb, [facility] [place] [facility] [address] [id number], [place] [address] Dec, [facility] [place] [facility] [address] [id number], [place] [address] November, [facility] [place] [facility] [address] [id number], [place] [address] Oct, [facility] [place] [facility] [address] [id number] [place] [address] Oct, [facility] [place] [facility] [address] [id number], [place] [address] Oct, [facility] [place] [facility] [address] [id number] [place] [address] Sep, [facility] [place] [facility] [address] [facility] [id number] [place] [address] 14 Sep, 2011 [facility] [address] [facility] [id number] [place] [address] 15 Aug, 2011 [facility] [address] [facility] [id number] [place] [address] 24 Jul, 2011 [facility] [address] [facility] [id number] [place] [address] Jul, [facility] [address] [facility] [id number] [place] [address] Jun, [facility] [address] [facility] [id number] [place] [address] Jun, [facility] [address] [facility] [id number] [place] [address] 16 May, 2011 [facility] [id number] [place] [address] 16 May, 2011 [facility] [address] [facility] [id number] [place] [address] Apr, [facility] [id number] [place] [address] 12 Mar, 2011 [facility] [address] [facility] [id number] [place] [address] Jan, [facility] [id number] [address] 15 Dec, 2010 [facility] [address] [facility] [id number], [place] [address] 17 Jun, 2010 [facility] [address] [facility] [id number], [place] [address] 13 Jun, 2010 [facility] [address] [facility] [id number][place] [address] [address] 19 May, 2010 [facility] [id number] [address] 10 May, 2010 IMMUNIZATIONS No Known Immunizations SOCIAL HISTORY Never Assessed REASON FOR VISIT BH f/u PLAN OF CARE Activity Details Follow Up 2 Weeks Reason: VITAL SIGNS MEDICATIONS Unknown Medications RESULTS No Results PROCEDURES Procedure Date Ordered Result Body Site [facility] VISIT MENTAL HEALTH ESTAB PT January 04, 2018 Psychotherapy, patient &/family, 30 minutes, established patient January 04, 2018 INSTRUCTIONS MEDICATIONS ADMINISTERED No Known Medications [...] 05/19/17 Hospitalization History UTI - Hospital ED [facility], [place], operated by [facility] 05/31/17 Hospitalization History UTI 08-06-17
--- OUTSIDE RECORDS SUMMARY | 2018-11-19 07:35 | XMS REPORT ---
Author Author RYNE CAMP Organization [facility] Address [address] [place] [address] Care Team Providers Care Investment Banker Name Role Phone RYNE CAMP Unavailable PROBLEMS Type Condition ICD9-CM Code OCH75-KA Code Onset Dates Condition Status SNOMED Code Problem Bipolar disorder, current episode depressed, moderate F31.32 Active 822968748 Problem Generalized anxiety disorder F41.1 Active [id number] ALLERGIES No Information ENCOUNTERS Encounter Location Date Diagnosis [place] [id number] [place] [address] 96331- 0424 May, [place] [address] [place] [id number] [place] [address] 02048- 8608 Feb, [place] [address] [place] [id number] [place] [address] 77554- 6689 Jan, Bipolar disorder, current episode depressed, moderate F31.32 and Generalized anxiety disorder F41.1 [place] [address] [id number] [address] 8492 Jan, Bipolar disorder, current episode depressed, moderate F31.32 and Generalized anxiety disorder F41.1 [place] [address] [place] [id number] [place] [address] 86271- 6875 Jan, Bipolar disorder, current episode depressed, moderate F31.32 [place] [address] [id number] [place] [address] 21449- 6693 Jan, Bipolar disorder, current episode depressed, moderate F31.32 [place] [id number] [place] [address] 02371- 0471 Jan, Bipolar disorder, current episode depressed, moderate F31.32 and Generalized anxiety disorder F41.1 [place] [id number] [address]- 1534 Dec, Bipolar disorder, current episode depressed, moderate F31.32 and Generalized anxiety disorder F41.1 [facility] [id number] [place] [address] 32157- 8751 November, Bipolar disorder, current episode depressed, moderate F31.32 and Generalized anxiety disorder F41.1 [facility] [id number] [place] [address] 87035- 7391 November, Bipolar disorder, current episode depressed, moderate F31.32 and Generalized anxiety disorder F41.1 [facility] [id number] [place] [address] 59179- 6447 Oct, Bipolar disorder, current episode depressed, moderate F31.32 and Generalized anxiety disorder F41.1 [facility] [id number] [place] [address] 38778- 4446 Oct, Bipolar disorder, current episode depressed, moderate F31.32 and Generalized anxiety disorder F41.1 [facility] [id number] [place] [address] 56807- 7207 Oct, Bipolar disorder, current episode depressed, moderate F31.32 [facility] [id number] [place] [address] 55421- 8967 Oct, Bipolar disorder, current episode depressed, moderate F31.32 and Generalized anxiety disorder F41.1 [facility] [id number] [place] [address] 99440- 5014 Sep, Bipolar disorder, current episode depressed, moderate F31.32 and Generalized anxiety disorder F41.1 [facility] [id number] [place] [address] 20562- 8669 Aug, Bipolar disorder, current episode depressed, moderate F31.32 [facility] [address] [address]- 1085 Aug, Bipolar disorder, current episode depressed, moderate F31.32 and Generalized anxiety disorder F41.1 [facility] [id number] [place] [address] 61257- 3597 Jul, Bipolar disorder, current episode depressed, moderate F31.32 and Generalized anxiety disorder F41.1 [facility] [address] [place] [id number] [place] [address] 328821- 3440 Jul, Bipolar disorder, current episode depressed, moderate F31.32 and High risk medication use Z79.899 [place] [address] [address] [id number] [place] [address] 04697- 2363 Jul, Generalized anxiety disorder F41.1 and Bipolar disorder, current episode depressed, moderate F31.32 [place] [address] [place] [address] [id number] [place] [address] 865698- 5210 Feb, Bipolar disorder, current episode depressed, moderate F31.32 and Generalized anxiety disorder F41.1 [place] [address] [place] [id number] [place] [address] 22613- 9620 November, Bipolar disorder, current episode depressed, moderate F31.32 and Generalized anxiety disorder F41.1 [place] [address] [id number] [place] [address] 19051- 4068 Aug, Bipolar disorder, current episode depressed, moderate F31.32 and Generalized anxiety disorder F41.1 [place] [id number] [place] [address] 82549- 1373 Aug, [facility] [id number] [place] [address] 59751 -4860 Aug, Dysuria R30.0 and Acute cystitis with hematuria N30.01 [facility] [address] [place] [id number] [place] [address] 77113- 4245 Aug, D[address]30.0 [facility] [address] [place] [id number] [place] [address] 43272- 6444 Aug, Bipolar disorder, current episode depressed, moderate F31.32 and Generalized anxiety disorder F41.1 [place] [address] [place] [id number] [place] [address] [place] [address]- 6574 Jul, Bipolar disorder, current episode depressed, moderate F31.32 and Generalized anxiety disorder F41.1 [facility] [address], [place] [address]- 5026 May, Generalized anxiety disorder F41.1 and Bipolar disorder, current episode depressed, moderate F31.32 [facility] [address] [place] [id number] [place] [address] 83198- 4018 May, Bipolar disorder, current episode depressed, moderate F31.32 and Generalized anxiety disorder F41.1 [facility] [id number] [place] [address] 12059- 8946 Apr, [facility] [id number] [place] [address] 84999- 6481 Apr, [facility] [id number] [place] [address] 20821- 9413 Apr, Bipolar disorder, current episode depressed, moderate F31.32 and Generalized anxiety disorder F41.1 [facility] [id number] [place] [address] 99576- 7747 Apr, [facility] [address] [place] [address] [id number] [place] [address] 05929- 6510 Apr, Adjustment disorder with mixed anxiety and depressed mood F43.23 [facility] [id number] [place] [address] 98348- 4815 Mar, Bipolar disorder, current episode depressed, moderate F31.32 and Generalized anxiety disorder F41.1 [facility] [address], [place] [address]- 2085 Feb, Bipolar disorder, current episode depressed, moderate F31.32 and Generalized anxiety disorder F41.1 [facility] [address] [place] [id number], [place] [address]- 6224 Feb, [facility] [id number] [place] [address] 44846- 4663 Feb, Bipolar disorder, current episode depressed, moderate F31.32 and Generalized anxiety disorder F41.1 [facility] [address] [place] [address] [id number], [place] [address]- 3817 Feb, Generalized anxiety disorder F41.1 and Bipolar disorder, current episode depressed, moderate F31.32 [facility] [address] [place] [id number] [address]- 6815 Jan, Bipolar disorder, current episode depressed, moderate F31.32 and Generalized anxiety disorder F41.1 [facility] [address] [place] [id number] [place] [address] 51343- 7300 Jan, Bipolar disorder, current episode depressed, moderate F31.32 and Generalized anxiety disorder F41.1 [facility] [address] [place] [id number] [place] [address] 02938- 5825 Dec, Generalized anxiety disorder F41.1 and Bipolar disorder, current episode depressed, moderate F31.32 [place] [address] [place] [id number] [place] [address] 07012- 3206 Dec, Bipolar disorder, current episode depressed, moderate F31.32 and Generalized anxiety disorder F41.1 [facility] [address] [place] [address] 70171- 7554 November, Bipolar disorder, current episode depressed, moderate F31.32 and Generalized anxiety disorder F41.1 [facility] [address] [place] [id number], [place] [address]- 1342 November, Bipolar disorder, current episode depressed, moderate F31.32 and Generalized anxiety disorder F41.1 [facility] [address] [place] [id number], [place] [address]- 2833 November, Generalized anxiety disorder F41.1 and Bipolar disorder, 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 [facility] [address] [place] [id number], [place] [address]- 9979 Oct, Bipolar disorder, current episode depressed, moderate F31.32 and Generalized anxiety disorder F41.1 [facility] [address] [address] [id number] [address]- 2038 13 Oct, 2015 Bipolar disorder, current episode depressed, moderate F31.32 and Generalized anxiety disorder F41.1 [facility] [address] [place] [id number] [place] [address] 50745- 4859 08 Oct, 2015 Bipolar disorder, current episode depressed, moderate F31.32 and Generalized anxiety disorder F41.1 [facility] [address] [place] [id number] [place] [address] 32997- 8744 Oct, Bipolar disorder, current episode depressed, moderate F31.32 and Generalized anxiety disorder F41.1 [facility] [address] [place] [id number] [place] [address] 09903- 8384 Sep, Bipolar disorder, current episode depressed, moderate F31.32 and Generalized anxiety disorder F41.1 [place] [address] [place] [id number] [place] [address] 24701- 2735 Sep, Bipolar disorder, current episode depressed, moderate F31.32 and Generalized anxiety disorder F41.1 [facility] [address] [place] [id number] [place] [address] 43852- 8497 Sep, Bipolar disorder, current episode depressed, moderate F31.32 and Generalized anxiety disorder F41.1 [facility] [address] [place] [id number], [place] [address]- 8507 Sep, [facility] [address] [place] [id number] [place] [address] 47432- 7747 Sep, Generalized anxiety disorder F41.1 and Bipolar disorder, current episode depressed, severe, without psychotic features F31.4 [facility] [address] [place] [address] [id number], [place] [address]- 3428 Aug, Bipolar disorder, 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 and Generalized anxiety disorder F41.1 [facility] [address] [place] [id number], [place] [address]- 0051 Aug, Bipolar disorder, 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 and Generalized anxiety disorder F41.1 [facility] [id number] [place] [address] 13084- 6798 Jul, Bipolar disorder, 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 and Generalized anxiety disorder F41.1 [place] [address] [place] [id number] [place] [address] 22843- 8069 Jul, Bipolar disorder, 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 and Generalized anxiety disorder F41.1 [place] [address] [place] [id number] [place] [address] 35156- 7849 Jun, [place] [address] [place] [id number] [place] [address] 07824- 2073 Jun, Bipolar disorder, 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 and Generalized anxiety disorder F41.1 [place] [address] [place] [id number] [place] [address] 68278- 2312 Jun, Bipolar disorder, 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 and Generalized anxiety disorder F41.1 [place] [address] [place] [id number] [place] [address] 92597- 4802 Jun, Generalized anxiety disorder F41.1 and Bipolar disorder, 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 [place] [address] [place] [id number] [place] [address] 49860- 2812 May, Generalized anxiety disorder F41.1 and Bipolar disorder, current episode depressed, severe, without psychotic features F31.4 [place] [id number] [place] [address] 82344- 2195 May, Bipolar disorder, 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 [place] [id number] [place] [address] 92289- 7950 May, [place] [address] [place] [id number] [place] [address] 06520- 5973 May, Bipolar disorder, unspecified F31.9 ; Generalized anxiety disorder F41.1 and Insomnia G47.00 [place] [address] [place] [id number] [place] [address] 69325- 5920 May, Bipolar disorder, current episode depressed, severe, without psychotic features F31.4 and Generalized anxiety disorder F41.1 [facility] [address], [place] [address]- 2683 May, [facility] [id number] [place] [address] 60140686- 0509 Apr, Bipolar disorder, current episode depressed, severe, without psychotic features F31.4 and Generalized anxiety disorder F41.1 [facility] [id number] [place] [address] 57690- 1342 Apr, Bipolar disorder, current episode depressed, severe, without psychotic features F31.4 [place] [address] [place] [address] 39675- 2619 Apr, Bipolar disorder, current episode depressed, severe, without psychotic features F31.4 and Generalized anxiety disorder F41.1 [place] [address] [place] [id number] [place] [address] 12163- 3879 Mar, Bipolar disorder, unspecified 296.80 [facility] [id number] [place] [address] 41342- 4471 Mar, Bipolar disorder, unspecified 296.80 ; Generalized anxiety disorder 300.02 and Depression, major, recurrent 296.30 [facility] [address], [place] [address]- 2302 Feb, Bipolar disorder, unspecified 296.80 [facility] [address], [place] [address]- 2604 Jan, Bipolar disorder, unspecified 296.80 [facility] [address], [place] [address]- 5147 Dec, Bipolar disorder, unspecified 296.80 [facility] [id number] [place] [address] 178832- 0168 Dec, Bipolar disorder, unspecified 296.80 ; Major depressive disorder, recurrent episode, unspecified 296.30 and Generalized anxiety disorder 300.02 [place] [address] [place] [id number] [address]- 9441 November, Bipolar disorder, unspecified 296.80 [facility] [place] [facility] [address] [id number] [place] [address]- 4169 14 Oct, 2014 [facility] [place] [facility] [address] [facility] [id number] [place] [address]- 0692 Oct, [facility] [place] [facility] [address] [facility] [id number] [place] [address]- 6411 Sep, [facility] [place] [facility] [address] [facility] [id number] [place] [address]- 8554 Sep, [facility] [place] [facility] [address] [facility] [id number] [place] [address]- 5516 Jul, [facility] [place] [facility] [address] [place] [id number] [place] [address]- 9321 Jul, [facility] [place] [facility] [address] [place] [id number] [place] [address]- 0861 Jul, [facility] [place] [facility] [address] [place] [id number] [place] [address]- 3930 Jul, [facility] [place] [facility] [address] [place] [address] [id number] [place] [address]- 3402 Jul, [facility] [place] [facility] [address] [place] [id number] [place] [address]- 5957 Jul, [facility] [place] [facility] [address] [place] [id number] [place] [address]- 2353 Jun, [facility] [place] [facility] [address] [facility] [id number] [place]- 6906 Jun, [facility] [place] [facility] [address] [place] [id number] [place] [address]- 9904 May, [facility] [place] [facility] [address] [facility] [id number] [place] [address]- 5738 May, [facility] [place] [facility] [address] [facility] [id number] [place] [address]- 5826 May, [facility] [place] [facility] [address] [id number] [place] [address]- 1933 May, [facility] [place] [facility] [address] [id number] [place] [address]- 0956 Apr, [facility] [place] [facility] [address] [id number] [place] [address]- 3796 Apr, [facility] [place] [facility] [address] [id number] [place] [address]- 4827 Mar, [facility] [place] [facility] [address] [id number] [place] [address]- 2461 Mar, [facility] [place] [facility] [address] [id number] [place] [address]- 9773 Feb, [facility] [place] [facility] [address] [id number] [place] [address]- 9278 Feb, [facility] [place] [facility] [address] [id number] [place] [address]- 3718 Feb, [facility] [place] [facility] [address] [id number] [place] [address]- 6504 Feb, [facility] [place] [facility] [address] [id number] [place] [address]- 7539 Feb, [facility] [place] [facility] [address] [id number], [place] [address]- 0849 Feb, [facility] [place] [facility] [address] [id number], [place] [address]- 1192 Feb, [facility] [place] [facility] [address] [id number] [place] [address]- 0047 Feb, [facility] [place] [facility] [address] [id number] [place] [address]- 1614 Feb, [facility] [place] [facility] [address] [id number] [place] [address]- 0708 Feb, [facility] [place] [facility] [address] [id number] [place] [address]- 5409 Feb, [facility] [place] [facility] [address] [id number] [place] [address]- 5282 Feb, [facility] [place] [facility] [address] [id number] [place] [address]- 7707 Feb, [facility] [place] [facility] [address] [id number] [place] [address]- 7310 Feb, [facility] [place] [facility] [address] [id number] [place] [address]- 9191 Jan, [facility] [place] [facility] [address] [id number] [place] [address]- 6556 Jan, [facility] [place] [facility] [address] [id number] [place] [address]- 7037 Jan, [facility] [place] [facility] [address] [id number] [place] [address]- 3413 Jan, [facility] [place] [facility] [address] [id number] [place] [address]- 0896 Jan, [facility] [place] [facility] [address] [id number] [place] [address]- 1414 Jan, [facility] [place] [facility] [address] [id number] [place] [address]- 7901 Jan, [facility] [place] [facility] [address] [id number] [place] [address]- 2731 Jan, [facility] [place] [facility] [address] [id number] [place] [address]- 8298 Dec, [facility] [place] [facility] [address] [id number] [place] [address]- 0395 Dec, [facility] [place] [facility] [address] [id number] [place] [address]- 7063 Dec, [facility] [place] [facility] [address] [id number] [place] [address]- 8604 Dec, [facility] [place] [facility] [address] [id number] [place] [address]- 2039 Dec, [facility] [place] [facility] [address] [id number] [place] [address]- 1106 Dec, [facility] [place] [facility] [address] [id number] [place] [address]- 7772 November, [facility] [place] [facility] [address] [id number] [place] [address]- 1060 November, [facility] [place] [facility] [address] [id number] [place] [address]- 3107 November, [facility] [place] [facility] [address] [id number] [place] [address]- 8011 November, [facility] [place] [facility] [address] [id number] [place] [address]- 6215 Oct, [facility] [place] [facility] [address] [id number] [place] [address]- 5448 Oct, [facility] [place] [facility] [address] [id number] [place] [address]- 4955 Sep, [facility] [place] [facility] [address] [id number] [place] [address]- 7722 Sep, [facility] [place] [facility] [address] [id number] [place] [address]- 0496 Sep, [facility] [place] [facility] [address] [id number] [place] [address]- 7691 Sep, [facility] [place] [facility] [address] [id number] [place] [address]- 7417 Sep, [facility] [place] [facility] [address] [id number] [place] [address]- 7889 Sep, [facility] [place] [facility] [address] [id number] [place] [address]- 3583 Sep, [facility] [place] [facility] [address] [id number] [place] [address]- 3612 Sep, [facility] [place] [facility] [address] [id number] [place] [address]- 1232 Aug, [facility] [place] [facility] [address] [id number] [place] [address]- 7446 Aug, [facility] [place] [facility] [address] [id number] [place] [address]- 0186 Aug, [facility] [place] [facility] [address] [id number] [place] [address]- 7880 Aug, [facility] [place] [facility] [address] [id number] [place] [address]- 4506 Aug, [facility] [place] [facility] [address] [id number] [place] [address]- 6844 Aug, [facility] [place] [facility] [address] [id number] [place] [address]- 1950 Aug, [facility] [place] [facility] [address] [id number] [place] [address]- 2886 Aug, [facility] [place] [facility] [address] [id number] [place] [address] Jul, [facility] [place] [facility] [address] [id number] [place] [address] Jul, [facility] [place] [facility] [address] [id number] [place] [address] Jul, [facility] [place] [facility] [address] [id number] [place] [address] Jul, [facility] [place] [facility] [address] [id number] [place] [address] Jul, [facility] [place] [facility] [address] [id number] [place] [address] Jul, [facility] [place] [facility] [address] [id number], [place] [address] Jul, [facility] [place] [facility] [address] [id number] [place] [address] Jul, [facility] [place] [facility] [address] [id number] [place] [address] Jun, [facility] [place] [facility] [address] [id number] [place] [address] Jun, [facility] [place] [facility] [address] [id number] [place] [address] Jun, [facility] [address] [id number] [place] [address] Jun, [facility] [place] [facility] [address] [id number] [place] [address] May, [facility] [address] [id number] [place] [address] May, [facility] [address] [id number] [place] [address] May, [facility] [place] [facility] [address] [id number] [place] [address] May, [facility] [place] [facility] [address] [id number] [place] [address] May, [facility] [place] [facility] [address] [id number] [place] [address] May, [facility] [place] [facility] [address] [id number], [place] [address] May, [facility] [place] [facility] [address] [id number] [place] [address]- [address] May, [facility] [place] [facility] [address] [id number] [place] [address] Apr, [facility] [place] [facility] [address] [id number] [place] [address] [address] Apr, [facility] [place] [facility] [address] [id number], [place] [address] Apr, [facility] [place] [facility] [address] [id number] [place] [address] Apr, [facility] [place] [facility] [address] [id number] [place] [address] Apr, [facility] [place] [facility] [address] [id number] [place] [address] Apr, [facility] [place] [facility] [address] [id number] [place] [address] Apr, [facility] [place] [facility] [address] [id number] [place] [address] Apr, [facility] [place] [facility] [address] [id number] [place] [address] Apr, [facility] [place] [facility] [address] [id number] [place] [address] Apr, [facility] [place] [facility] [address] [id number] [place] [address] Apr, [facility] [place] [facility] [address] [id number] [place] [address] Mar, [facility] [place] [facility] [address] [id number] [place] [address] Feb, [facility] [place] [facility] [address] [id number], [place] [address] Feb, [facility] [place] [facility] [address] [id number], [place] [address] Feb, [facility] [place] [facility] [address] [id number] [place] [address] Jan, [facility] [place] [facility] [address] [id number] [place] [address] Dec, [facility] [place] [facility] [address] [id number] [place] [address] Dec, [facility] [place] [facility] [address] [id number] [place] [address] 14 Dec, 2012 [facility] [address] [id number] [place] [address] November, [facility] [address] [id number] [place] [address] November, [facility] [address] [id number] [place] [address] November, [facility] [address] [id number] [place] [address] Oct, [facility] [address] [id number] [place] [address] Oct, [facility] [address] [id number] [place] [address] Oct, [facility] [address] [id number] [place] [address] Sep, [facility] [address] [id number] [place] [address] Sep, [facility] [address] [id number] [place] [address] Sep, [facility] [address] [id number] [place] [address] Aug, [facility] [address] [id number] [place] [address] Jul, [facility] [address] [id number] [place] [address] Jul, [facility] [address] [id number] [place] [address] Jun, [facility] [address] [id number] [place] [address] Jun, [facility] [address] [id number] [place] [address] May, [facility] [place] [facility] [address] [id number] [place] [address] May, [facility] [place] [facility] [address] [id number] [place] [address] May, [facility] [place] [facility] [address] [id number] [place] [address] May, [facility] [place] [facility] [address] [id number] [place] [address] May, [facility] [place] [facility] [address] [id number] [place] [address] May, [facility] [place] [facility] [address] [id number] [place] [address] Apr, [facility] [place] [facility] [address] [id number] [place] [address] Feb, [facility] [place] [facility] [address] [id number], [place] [address] Dec, [facility] [place] [facility] [address] [id number] [place] [address] November, [facility] [place] [facility] [address] [id number], [place] [address] Oct, [facility] [place] [facility] [address] [id number], [place] [address] Oct, [facility] [place] [facility] [address] [id number], [place] [address] Oct, [facility] [place] [facility] [address] [id number] [place] [address] Sep, [facility] [place] [facility] [address] [id number], [place] [address] 14 Sep, 2011 [facility] [place] [facility] [address] [facility] [id number] [place] [address] 15 Aug, 2011 [facility] [place] [facility] [id number], [place] [address] Jul, [facility] [id number] [place] [address] Jul, [facility] [id number] [address] Jun, [facility] [id number] [address] Jun, [facility] [id number] [address] May, [facility] [id number] [place] [address] May, [facility] [id number] [address] Apr, [facility] [id number] [address] Mar, [facility] [id number] [address] Jan, [facility] [id number] [address] Dec, [facility] [id number] [address] Jun, [facility] [id number] [address] Jun, [facility] [id number], [place] [address] May, [facility] [address] [id number], [place] [address] May, IMMUNIZATIONS No Known Immunizations SOCIAL HISTORY Never Assessed REASON FOR VISIT BH f/u, Depression. PLAN OF CARE Activity Details Follow Up 1 - 2 weeks Reason:depression VITAL SIGNS MEDICATIONS Unknown Medications RESULTS No Results PROCEDURES Procedure Date Ordered Result Body Site [facility] VISIT MENTAL HEALTH ESTAB PT December 01, 2017 Psychotherapy, patient &/family, 30 minutes, established patient December 01, 2017 INSTRUCTIONS MEDICATIONS ADMINISTERED No Known Medications MEDICAL [...] 05/19/17 Hospitalization History UTI - Hospital ED [facility] 05/31/17 Hospitalization History UTI 08-06-17
--- OUTSIDE RECORDS SUMMARY | 2018-11-19 07:35 | XMS REPORT ---
Author Author RYNE CAMP Organization [facility] Address [address] [place] [address] Care Team Providers Care Veneer Splicer Name Role Phone RYNE CAMP Unavailable PROBLEMS Type Condition ICD9-CM Code [id number] Code Onset Dates Condition Status SNOMED Code Problem Bipolar disorder, current episode depressed, moderate F31.32 Active 809409892 Problem Generalized anxiety disorder F41.1 Active [id number] ALLERGIES No Information ENCOUNTERS Encounter Location Date Diagnosis [place] [id number] [place] [address] 70010- 1600 May, [place] [address] [place] [id number] [place] [address] 84961- 9702 Feb, [place] [address] [address] [id number] [place] [address] 65148- 8583 Jan, Bipolar disorder, current episode depressed, moderate F31.32 and Generalized anxiety disorder F41.1 [place] [id number], [place] [address] 7183 Jan, Bipolar disorder, current episode depressed, moderate F31.32 and Generalized anxiety disorder F41.1 [place] [address] [id number] [place] [address] 59474- 1495 Jan, Bipolar disorder, current episode depressed, moderate F31.32 [place] [address] [id number] [place] [address] 43369- 9870 Jan, Bipolar disorder, current episode depressed, moderate F31.32 [place] [id number] [place] [address] 04206- 6877 Jan, Bipolar disorder, current episode depressed, moderate F31.32 and Generalized anxiety disorder F41.1 [place] [id number] [address]- 1843 Dec, Bipolar disorder, current episode depressed, moderate F31.32 and Generalized anxiety disorder F41.1 [facility] [id number] [place] [address] 83183- 0790 November, Bipolar disorder, current episode depressed, moderate F31.32 and Generalized anxiety disorder F41.1 [facility] [id number] [place] [address] 58484- 1455 November, Bipolar disorder, current episode depressed, moderate F31.32 and Generalized anxiety disorder F41.1 [facility] [id number] [place] [address] 53342- 1281 Oct, Bipolar disorder, current episode depressed, moderate F31.32 and Generalized anxiety disorder F41.1 [facility] [id number] [place] [address] 94985- 9765 Oct, Bipolar disorder, current episode depressed, moderate F31.32 and Generalized anxiety disorder F41.1 [facility] [id number] [place] [address] 58946- 8520 Oct, Bipolar disorder, current episode depressed, moderate F31.32 [facility] [id number] [place] [address] 26908- 0266 Oct, Bipolar disorder, current episode depressed, moderate F31.32 and Generalized anxiety disorder F41.1 [facility] [id number] [place] [address] 91494- 3654 Sep, Bipolar disorder, current episode depressed, moderate F31.32 and Generalized anxiety disorder F41.1 [facility] [id number] [place] [address] 41392- 1885 Aug, Bipolar disorder, current episode depressed, moderate F31.32 [facility] [address] [address]- 4256 Aug, Bipolar disorder, current episode depressed, moderate F31.32 and Generalized anxiety disorder F41.1 [facility] [id number] [place] [address] 41701- 9067 Jul, Bipolar disorder, current episode depressed, moderate F31.32 and Generalized anxiety disorder F41.1 [facility] [address] [id number] [place] [address] 496356- 2587 Jul, Bipolar disorder, current episode depressed, moderate F31.32 and High risk medication use Z79.899 [place] [address] [id number] [place] [address] 73097- 1889 Jul, Generalized anxiety disorder F41.1 and Bipolar disorder, current episode depressed, moderate F31.32 [place] [address] [id number] [place] [address] 689338- 6558 Feb, Bipolar disorder, current episode depressed, moderate F31.32 and Generalized anxiety disorder F41.1 [place] [address] [id number] [place] [address] 32714- 2795 November, Bipolar disorder, current episode depressed, moderate F31.32 and Generalized anxiety disorder F41.1 [place] [address] [id number] [place] [address] 47120- 5359 Aug, Bipolar disorder, current episode depressed, moderate F31.32 and Generalized anxiety disorder F41.1 [place] [id number] [place] [address] 93913- 4238 Aug, [facility] [id number] [place] [address] 74486 -5961 Aug, Dysuria R30.0 and Acute cystitis with hematuria N30.01 [facility] [address] [place] [address] [id number] [place] [address] 95733- 7268 Aug, Dysuria R30.0 [facility] [address] [place] [id number] [place] [address] 89972- 1293 Aug, Bipolar disorder, current episode depressed, moderate F31.32 and Generalized anxiety disorder F41.1 [place] [id number] [place] [address] [place] [address]- 3940 Jul, Bipolar disorder, current episode depressed, moderate F31.32 and Generalized anxiety disorder F41.1 [facility] [address], [place] [address]- 5559 May, Generalized anxiety disorder F41.1 and Bipolar disorder, current episode depressed, moderate F31.32 [facility] [address] [place] [id number] [place] [address] 80156- 0001 May, Bipolar disorder, current episode depressed, moderate F31.32 and Generalized anxiety disorder F41.1 [facility] [id number] [place] [address] 69235- 2086 Apr, [facility] [address] [id number] [place] [address] 82298- 3968 Apr, [facility] [address] [id number] [place] [address] 63514- 6755 Apr, Bipolar disorder, current episode depressed, moderate F31.32 and Generalized anxiety disorder F41.1 [facility] [id number] [place] [address] 07050- 1064 Apr, [facility] [address] [id number] [place] [address] 20316- 2098 Apr, Adjustment disorder with mixed anxiety and depressed mood F43.23 [facility] [id number] [place] [address] 25144- 7045 Mar, Bipolar disorder, current episode depressed, moderate F31.32 and Generalized anxiety disorder F41.1 [facility] [address], [place] [address]- 5613 Feb, Bipolar disorder, current episode depressed, moderate F31.32 and Generalized anxiety disorder F41.1 [facility] [address] [id number], [place] [address]- 8227 Feb, [facility] [id number] [place] [address] 44027- 9829 Feb, Bipolar disorder, current episode depressed, moderate F31.32 and Generalized anxiety disorder F41.1 [facility] [address] [id number], [place] [address]- 2659 Feb, Generalized anxiety disorder F41.1 and Bipolar disorder, current episode depressed, moderate F31.32 [facility] [address] [id number], [place] [address]- 1275 Jan, Bipolar disorder, current episode depressed, moderate F31.32 and Generalized anxiety disorder F41.1 [facility] [address] [id number] [place] [address] 31055- 4463 Jan, Bipolar disorder, current episode depressed, moderate F31.32 and Generalized anxiety disorder F41.1 [facility] [address] [place] [id number] [place] [address] 47001- 5586 Dec, Generalized anxiety disorder F41.1 and Bipolar disorder, current episode depressed, moderate F31.32 [place] [address] [id number] [place] [address] 74383- 5291 Dec, Bipolar disorder, current episode depressed, moderate F31.32 and Generalized anxiety disorder F41.1 [facility] [id number] [place] [address] 80644- 8694 November, Bipolar disorder, current episode depressed, moderate F31.32 and Generalized anxiety disorder F41.1 [facility] [address] [id number], [place] [address]- 5264 November, Bipolar disorder, current episode depressed, moderate F31.32 and Generalized anxiety disorder F41.1 [facility] [address] [id number], [place] [address]- 3768 November, Generalized anxiety disorder F41.1 and Bipolar disorder, 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 [facility] [address] [id number], [place] [address]- 8419 Oct, Bipolar disorder, current episode depressed, moderate F31.32 and Generalized anxiety disorder F41.1 [facility] [id number], [place] [address]- 2712 13 Oct, 2015 Bipolar disorder, current episode depressed, moderate F31.32 and Generalized anxiety disorder F41.1 [facility] [address] [id number] [place] [address] 18912- 1230 08 Oct, 2015 Bipolar disorder, current episode depressed, moderate F31.32 and Generalized anxiety disorder F41.1 [facility] [address] [id number] [place] [address] 45510- 3930 Oct, Bipolar disorder, current episode depressed, moderate F31.32 and Generalized anxiety disorder F41.1 [facility] [address] [place] [address] [id number] [place] [address] 37601- 4444 Sep, Bipolar disorder, current episode depressed, moderate F31.32 and Generalized anxiety disorder F41.1 [place] [address] [place] [id number] [place] [address] 75496- 9756 Sep, Bipolar disorder, current episode depressed, moderate F31.32 and Generalized anxiety disorder F41.1 [facility] [address] [id number] [place] [address] 47927- 6586 Sep, Bipolar disorder, current episode depressed, moderate F31.32 and Generalized anxiety disorder F41.1 [facility] [id number], [place] [address]- 4262 Sep, [facility] [address] [address] [id number] [place] [address] 16966- 1848 Sep, Generalized anxiety disorder F41.1 and Bipolar disorder, current episode depressed, severe, without psychotic features F31.4 [facility] [id number], [place] [address]- 2096 Aug, Bipolar disorder, 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 and Generalized anxiety disorder F41.1 [facility] [address] [id number], [place] [address]- 5456 Aug, Bipolar disorder, 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 and Generalized anxiety disorder F41.1 [facility] [id number] [place] [address] 43583- 7895 Jul, Bipolar disorder, 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 and Generalized anxiety disorder F41.1 [place] [address] [address] [id number] [place] [address] 49210- 6450 Jul, Bipolar disorder, 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 and Generalized anxiety disorder F41.1 [place] [address] [id number] [place] [address] 10067- 4777 Jun, [place] [address] [address] [id number] [place] [address] 21892- 0542 Jun, Bipolar disorder, 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 and Generalized anxiety disorder F41.1 [place] [address] [id number] [place] [address] 18713- 3761 Jun, Bipolar disorder, 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 and Generalized anxiety disorder F41.1 [place] [address] [address] [id number] [place] [address] 30096- 2259 Jun, Generalized anxiety disorder F41.1 and Bipolar disorder, 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 [place] [address] [address] [id number] [place] [address] 06497- 2284 May, Generalized anxiety disorder F41.1 and Bipolar disorder, current episode depressed, severe, without psychotic features F31.4 [place] [id number] [place] [address] 50723- 0016 May, Bipolar disorder, 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 [place] [id number] [place] [address] 70283- 3094 May, [place] [address] [address] [id number] [place] [address] 31004- 2286 May, Bipolar disorder, unspecified F31.9 ; Generalized anxiety disorder F41.1 and Insomnia G47.00 [place] [address] [place] [id number] [place] [address] 95909- 5014 May, Bipolar disorder, current episode depressed, severe, without psychotic features F31.4 and Generalized anxiety disorder F41.1 [facility] [address], [place] [address]- 0714 May, [facility] [id number] [place] [address] [id number]- 4889 Apr, Bipolar disorder, current episode depressed, severe, without psychotic features F31.4 and Generalized anxiety disorder F41.1 [facility] [id number] [place] [address] 71043- 8167 Apr, Bipolar disorder, current episode depressed, severe, without psychotic features F31.4 [place] [id number] [place] [address] 43848- 4064 Apr, Bipolar disorder, current episode depressed, severe, without psychotic features F31.4 and Generalized anxiety disorder F41.1 [place] [address] [id number] [place] [address] 20662- 0773 Mar, Bipolar disorder, unspecified 296.80 [facility] [id number] [place] [address] 75590- 6708 Mar, Bipolar disorder, unspecified 296.80 ; Generalized anxiety disorder 300.02 and Depression, major, recurrent 296.30 [facility] [address], [place] [address]- 3988 Feb, Bipolar disorder, unspecified 296.80 [facility] [address], [place] [address]- 2944 Jan, Bipolar disorder, unspecified 296.80 [facility] [address], [place] [address]- 3054 Dec, Bipolar disorder, unspecified 296.80 [facility] [id number] [place] [address] 798668- 8621 Dec, Bipolar disorder, unspecified 296.80 ; Major depressive disorder, recurrent episode, unspecified 296.30 and Generalized anxiety disorder 300.02 [place] [id number] [place] [address]- 2668 November, Bipolar disorder, unspecified 296.80 [facility] [place] [facility] [address] [id number] [place] [address]- 8433 14 Oct, 2014 [facility] [place] [facility] [address] [facility] [id number] [place] [address]- 7655 Oct, [facility] [place] [facility] [address] [facility] [id number] [place] [address]- 9234 Sep, [facility] [place] [facility] [address] [facility] [id number] [place] [address]- 2736 Sep, [facility] [place] [facility] [address] [facility] [id number] [place] [address]- 7756 Jul, [facility] [place] [facility] [address] [id number] [place] [address]- 9371 Jul, [facility] [place] [facility] [id number] [place] [address]- 2164 Jul, [facility] [place] [facility] [id number] [place] [address]- 6889 Jul, [facility] [place] [facility] [id number] [place] [address]- 6465 Jul, [facility] [place] [facility] [id number] [place] [address]- 0870 Jul, [facility] [place] [facility] [id number] [place] [address]- 7434 Jun, [facility] [place] [facility] [address] [facility] [id number] [place]- 7494 Jun, [facility] [place] [facility] [id number] [place] [address]- 5246 May, [facility] [place] [facility] [address] [facility] [id number] [place] [address]- 6793 May, [facility] [place] [facility] [address] [facility] [id number] [place] [address]- 1924 May, [facility] [place] [facility] [address] [id number] [place] [address]- 3938 May, [facility] [place] [facility] [address] [id number] [place] [address]- 1451 Apr, [facility] [place] [facility] [address] [id number] [place] [address]- 1508 Apr, [facility] [place] [facility] [address] [id number] [place] [address]- 1984 Mar, [facility] [place] [facility] [address] [id number] [place] [address]- 6122 Mar, [facility] [place] [facility] [address] [id number] [place] [address]- 8955 Feb, [facility] [place] [facility] [address] [id number] [place] [address]- 9453 Feb, [facility] [place] [facility] [address] [id number] [place] [address]- 7376 Feb, [facility] [place] [facility] [address] [id number] [place] [address]- 8809 Feb, [facility] [place] [facility] [address] [id number] [place] [address]- 9569 Feb, [facility] [place] [facility] [address] [id number] [address]- 2278 Feb, [facility] [place] [facility] [address] [id number] [address]- 1937 Feb, [facility] [place] [facility] [address] [id number] [place] [address]- 6240 Feb, [facility] [place] [facility] [address] [id number] [place] [address]- 9977 Feb, [facility] [place] [facility] [address] [id number] [place] [address]- 6699 Feb, [facility] [place] [facility] [address] [id number] [place] [address]- 4022 Feb, [facility] [place] [facility] [address] [id number] [place] [address]- 3942 Feb, [facility] [place] [facility] [address] [id number] [place] [address]- 9268 Feb, [facility] [place] [facility] [address] [id number] [place] [address]- 6331 Feb, [facility] [place] [facility] [address] [id number] [place] [address]- 3862 Jan, [facility] [place] [facility] [address] [id number] [place] [address]- 4223 Jan, [facility] [place] [facility] [address] [id number] [place] [address]- 0871 Jan, [facility] [place] [facility] [address] [id number] [place] [address]- 7151 Jan, [facility] [place] [facility] [address] [id number] [place] [address]- 2145 Jan, [facility] [place] [facility] [address] [id number] [place] [address]- 0601 Jan, [facility] [place] [facility] [address] [id number] [place] [address]- 8214 Jan, [facility] [place] [facility] [address] [id number] [place] [address]- 1573 Jan, [facility] [place] [facility] [address] [id number] [place] [address]- 6524 Dec, [facility] [place] [facility] [address] [id number] [place] [address]- 8296 Dec, [facility] [place] [facility] [address] [id number] [place] [address]- 4466 Dec, [facility] [place] [facility] [address] [id number] [place] [address]- 9289 Dec, [facility] [place] [facility] [address] [id number] [place] [address]- 1153 Dec, [facility] [place] [facility] [address] [id number] [place] [address]- 8451 Dec, [facility] [place] [facility] [address] [id number] [place] [address]- 8584 November, [facility] [place] [facility] [address] [id number] [place] [address]- 6666 November, [facility] [place] [facility] [address] [id number] [place] [address]- 3993 November, [facility] [place] [facility] [address] [id number] [place] [address]- 4703 November, [facility] [place] [facility] [address] [id number] [place] [address]- 6366 Oct, [facility] [place] [facility] [address] [id number] [place] [address]- 1360 Oct, [facility] [place] [facility] [address] [id number] [place] [address]- 2523 Sep, [facility] [place] [facility] [address] [id number] [place] [address]- 7117 Sep, [facility] [place] [facility] [address] [id number] [place] [address]- 5694 Sep, [facility] [place] [facility] [address] [id number] [place] [address]- 1593 Sep, [facility] [place] [facility] [address] [id number] [place] [address]- 3528 Sep, [facility] [place] [facility] [address] [id number] [place] [address]- 8572 Sep, [facility] [place] [facility] [address] [id number] [place] [address]- 6511 Sep, [facility] [place] [facility] [address] [id number] [place] [address]- 3056 Sep, [facility] [place] [facility] [address] [id number] [place] [address]- 9970 Aug, [facility] [place] [facility] [address] [id number] [place] [address]- 8916 Aug, [facility] [place] [facility] [address] [id number] [place] [address]- 1236 Aug, [facility] [place] [facility] [address] [id number] [place] [address]- 6731 Aug, [facility] [place] [facility] [address] [id number] [place] [address]- 8086 Aug, [facility] [place] [facility] [address] [id number] [place] [address] Aug, [facility] [place] [facility] [address] [id number] [place] [address] Aug, [facility] [place] [facility] [address] [id number] [place] [address] Aug, [facility] [place] [facility] [address] [id number] [place] [address] Jul, [facility] [place] [facility] [address] [id number] [place] [address] Jul, [facility] [place] [facility] [address] [id number] [place] [address] Jul, [facility] [place] [facility] [address] [id number] [place] [address] Jul, [facility] [place] [facility] [address] [id number] [place] [address] Jul, [facility] [place] [facility] [address] [id number] [place] [address] Jul, [facility] [place] [facility] [address] [id number], [place] [address] Jul, [facility] [place] [facility] [address] [id number] [place] [address]- [address]69 Jul, [facility] [place] [facility] [address] [id number] [place] [address] Jun, [facility] [place] [facility] [address] [id number] [place] [address] Jun, [facility] [place] [facility] [address] [id number] [place] [address] Jun, [facility] [address] [id number] [place] [address] Jun, [facility] [place] [facility] [address] [id number] [place] [address] May, [facility] [address] [id number] [place] [address]- [address] May, [facility] [address] [id number] [place] [address] May, [facility] [place] [facility] [address] [id number] [place] [address]- [address] May, [facility] [place] [facility] [address] [id number] [place] [address]- [address] May, [facility] [place] [facility] [address] [id number] [place] [address] May, [facility] [place] [facility] [address] [id number], [place] [address] May, [facility] [place] [facility] [address] [id number] [place] [address] May, [facility] [place] [facility] [address] [id number] [place] [address]- [address] Apr, [facility] [place] [facility] [address] [id number] [place] [address] Apr, [facility] [place] [facility] [address] [id number], [place] [address] Apr, [facility] [place] [facility] [address] [id number] [place] [address] Apr, [facility] [place] [facility] [address] [id number] [place] [address] Apr, [facility] [place] [facility] [address] [id number] [place] [address] Apr, [facility] [place] [facility] [address] [id number] [place] [address]- [address] Apr, [facility] [place] [facility] [address] [id number] [place] [address] Apr, [facility] [place] [facility] [address] [id number] [place] [address] Apr, [facility] [place] [facility] [address] [id number] [place] [address] Apr, [facility] [place] [facility] [address] [id number] [place] [address] Apr, [facility] [place] [facility] [address] [id number] [place] [address] Mar, [facility] [place] [facility] [address] [id number] [place] [address] Feb, [facility] [place] [facility] [address] [id number], [place] [address] Feb, [facility] [place] [facility] [address] [id number], [place] [address] Feb, [facility] [place] [facility] [address] [id number] [place] [address] Jan, [facility] [place] [facility] [address] [id number] [place] [address] Dec, [facility] [place] [facility] [address] [id number] [place] [address] Dec, [facility] [place] [facility] [address] [id number] [place] [address] 14 Dec, 2012 [facility] [address] [id number] [place] [address] November, [facility] [address] [id number] [place] [address] November, [facility] [address] [id number] [place] [address] November, [facility] [address] [id number] [place] [address] Oct, [facility] [address] [id number] [place] [address] Oct, [facility] [address] [id number] [place] [address] Oct, [facility] [address] [id number] [place] [address] Sep, [facility] [address] [id number] [place] [address] Sep, [facility] [address] [id number] [place] [address] Sep, [facility] [address] [id number] [place] [address] Aug, [facility] [address] [id number] [place] [address] Jul, [facility] [address] [id number] [place] [address] 97[address] Jul, [facility] [address] [id number] [place] [address] Jun, [facility] [address] [id number] [place] [address] Jun, [facility] [address] [id number] [place] [address] May, [facility] [place] [facility] [address] [id number] [place] [address] May, [facility] [place] [facility] [address] [id number] [place] [address] May, [facility] [place] [facility] [address] [id number] [place] [address] May, [facility] [place] [facility] [address] [id number] [place] [address] May, [facility] [place] [facility] [address] [id number] [place] [address] May, [facility] [place] [facility] [address] [id number] [place] [address] Apr, [facility] [place] [facility] [address] [id number] [place] [address] Feb, [facility] [place] [facility] [address] [id number], [place] [address] Dec, [facility] [place] [facility] [address] [id number] [place] [address] November, [facility] [place] [facility] [address] [id number], [place] [address] Oct, [facility] [place] [facility] [address] [id number], [place] [address] Oct, [facility] [place] [facility] [address] [id number], [place] [address] Oct, [facility] [place] [facility] [address] [id number] [place] [address] Sep, [facility] [place] [facility] [address] [id number], [place] [address] 14 Sep, 2011 [facility] [place] [facility] [address] [facility] [id number] [place] [address] 15 Aug, 2011 [facility] [place] [facility] [address] [id number], [place] [address] Jul, [facility] [id number], [place] [address] Jul, [facility] [id number] [address] [address] Jun, [facility] [id number], [place] [address] Jun, [facility] [id number], [place] [address] May, [facility] [id number] [place] [address]- [address] May, [facility] [id number], [place] [address] Apr, [facility] [id number], [place] [address] Mar, [facility] [id number], [place] [address] Jan, [facility] [id number], [place] [address] Dec, [facility] [id number], [place] [address] Jun, [facility] [id number], [place] [address] Jun, [facility] [id number], [place] [address] May, [facility] [address] [id number], [place] [address] May, IMMUNIZATIONS No Known Immunizations SOCIAL HISTORY Never Assessed REASON FOR VISIT BH f/u, Depression. PLAN OF CARE Activity Details Follow Up 2 Weeks Reason:depression VITAL SIGNS MEDICATIONS Unknown Medications RESULTS No Results PROCEDURES Procedure Date Ordered Result Body Site [facility] VISIT MENTAL HEALTH ESTAB PT December 09, 2017 Psychotherapy, patient &/family, 30 minutes, established patient December 09, 2017 INSTRUCTIONS MEDICATIONS ADMINISTERED No Known Medications [...] 05/19/17 Hospitalization History UTI - Hospital ED [facility] 05/31/17 Hospitalization History UTI 08-06-17
--- OUTSIDE RECORDS SUMMARY | 2018-11-19 07:36 | XMS REPORT ---
Author Author RYNE CAMP Organization [facility] Address [address] [place] [address] Care Team Providers Care Slurry Worker Name Role Phone RYNE CAMP Unavailable PROBLEMS Type Condition ICD9-CM Code BHL23-FW Code Onset Dates Condition Status SNOMED Code Problem Bipolar disorder, current episode depressed, moderate F31.32 Active 976696572 Problem Generalized anxiety disorder F41.1 Active [id number] ALLERGIES No Information ENCOUNTERS Encounter Location Date Diagnosis [place] [id number] [place] [address] 58089- 6230 May, [place] [address] [place] [id number] [place] [address] 91492- 1861 Feb, [place] [address] [place] [id number] [place] [address] 76887- 2324 Jan, Bipolar disorder, current episode depressed, moderate F31.32 and Generalized anxiety disorder F41.1 [place] [address] [place] [id number] [address]- 8197 Jan, Bipolar disorder, current episode depressed, moderate F31.32 and Generalized anxiety disorder F41.1 [place] [address] [place] [id number] [place] [address] 56880- 8342 Jan, Bipolar disorder, current episode depressed, moderate F31.32 [place] [address] [place] [id number] [place] [address] 86744- 1611 Jan, Bipolar disorder, current episode depressed, moderate F31.32 [place] [id number] [place] [address] 35128- 4391 Jan, Bipolar disorder, current episode depressed, moderate F31.32 and Generalized anxiety disorder F41.1 [place] [address] [place] [address] [id number] [address]- 9636 Dec, Bipolar disorder, current episode depressed, moderate F31.32 and Generalized anxiety disorder F41.1 [facility] [address] [place] [id number] [place] [address] 51002- 9232 November, Bipolar disorder, current episode depressed, moderate F31.32 and Generalized anxiety disorder F41.1 [facility] [address] [place] [id number] [place] [address] 58387- 4949 November, Bipolar disorder, current episode depressed, moderate F31.32 and Generalized anxiety disorder F41.1 [facility] [address] [place] [id number] [place] [address] 45951- 6285 Oct, Bipolar disorder, current episode depressed, moderate F31.32 and Generalized anxiety disorder F41.1 [facility] [address] [place] [id number] [place] [address] 55114- 9359 Oct, Bipolar disorder, current episode depressed, moderate F31.32 and Generalized anxiety disorder F41.1 [facility] [id number] [place] [address] 54230- 3965 Oct, Bipolar disorder, current episode depressed, moderate F31.32 [facility] [id number] [place] [address] 11413- 5899 Oct, Bipolar disorder, current episode depressed, moderate F31.32 and Generalized anxiety disorder F41.1 [facility] [id number] [place] [address] 90631- 5935 Sep, Bipolar disorder, current episode depressed, moderate F31.32 and Generalized anxiety disorder F41.1 [facility] [id number] [place] [address] 01425- 6867 Aug, Bipolar disorder, current episode depressed, moderate F31.32 [facility] [address] [address]- 9458 Aug, Bipolar disorder, current episode depressed, moderate F31.32 and Generalized anxiety disorder F41.1 [facility] [id number] [place] [address] 66257- 3506 Jul, Bipolar disorder, current episode depressed, moderate F31.32 and Generalized anxiety disorder F41.1 [facility] [address] [place] [id number] [place] [address] 620956- 4862 Jul, Bipolar disorder, current episode depressed, moderate F31.32 and High risk medication use Z79.899 [place] [address] [place] [id number] [place] [address] 37489- 9805 Jul, Generalized anxiety disorder F41.1 and Bipolar disorder, current episode depressed, moderate F31.32 [place] [address] [place] [id number] [place] [address] 217071- 8032 Feb, Bipolar disorder, current episode depressed, moderate F31.32 and Generalized anxiety disorder F41.1 [place] [address] [place] [id number] [place] [address] 99845- 3270 November, Bipolar disorder, current episode depressed, moderate F31.32 and Generalized anxiety disorder F41.1 [place] [address] [place] [id number] [place] [address] 33981- 2701 Aug, Bipolar disorder, current episode depressed, moderate F31.32 and Generalized anxiety disorder F41.1 [place] [id number] [place] [address] 33162- 2008 Aug, [facility] [address] [place] [id number] [place] [address] 33721 -1898 Aug, Dysuria R30.0 and Acute cystitis with hematuria N30.01 [facility] [address] [place] [id number] [place] [address] 44344- 4198 Aug, Dysuria R30.0 [facility] [address] [place] [id number] [place] [address] 12042- 6707 Aug, Bipolar disorder, current episode depressed, moderate F31.32 and Generalized anxiety disorder F41.1 [place] [address] [place] [id number] [place] [address] [place] [address]- 2922 Jul, Bipolar disorder, current episode depressed, moderate F31.32 and Generalized anxiety disorder F41.1 [facility] [address] [address]- 8423 May, Generalized anxiety disorder F41.1 and Bipolar disorder, current episode depressed, moderate F31.32 [facility] [address] [place] [id number] [place] [address] 90612- 0712 May, Bipolar disorder, current episode depressed, moderate F31.32 and Generalized anxiety disorder F41.1 [facility] [address] [place] [address] 38749- 9261 Apr, [facility] [address] [place] [id number] [place] [address] 12520- 5958 Apr, [facility] [address] [place] [id number] [place] [address] 24178- 8546 Apr, Bipolar disorder, current episode depressed, moderate F31.32 and Generalized anxiety disorder F41.1 [facility] [address] [place] [address] 89627- 7399 Apr, [facility] [address] [place] [id number] [place] [address] 02725- 1552 Apr, Adjustment disorder with mixed anxiety and depressed mood F43.23 [facility] [address] [place] [address] 31562- 0128 Mar, Bipolar disorder, current episode depressed, moderate F31.32 and Generalized anxiety disorder F41.1 [facility] [address] [address]- 0504 Feb, Bipolar disorder, current episode depressed, moderate F31.32 and Generalized anxiety disorder F41.1 [facility] [address] [place] [id number] [address]- 4227 Feb, [facility] [address] [place] [address] 23914- 5909 Feb, Bipolar disorder, current episode depressed, moderate F31.32 and Generalized anxiety disorder F41.1 [facility] [address] [place] [id number] [address]- 4591 Feb, Generalized anxiety disorder F41.1 and Bipolar disorder, current episode depressed, moderate F31.32 [facility] [address] [place] [id number] [address]- 2375 Jan, Bipolar disorder, current episode depressed, moderate F31.32 and Generalized anxiety disorder F41.1 [facility] [address] [place] [id number] [place] [address] 92139- 9528 Jan, Bipolar disorder, current episode depressed, moderate F31.32 and Generalized anxiety disorder F41.1 [facility] [address] [place] [id number] [place] [address] 88303- 6510 Dec, Generalized anxiety disorder F41.1 and Bipolar disorder, current episode depressed, moderate F31.32 [place] [address] [place] [id number] [place] [address] 69916- 4119 Dec, Bipolar disorder, current episode depressed, moderate F31.32 and Generalized anxiety disorder F41.1 [facility] [address] [place] [address] 83219- 7666 November, Bipolar disorder, current episode depressed, moderate F31.32 and Generalized anxiety disorder F41.1 [facility] [address] [place] [id number] [address]- 2141 November, Bipolar disorder, current episode depressed, moderate F31.32 and Generalized anxiety disorder F41.1 [facility] [address] [place] [id number] [address]- 6894 November, Generalized anxiety disorder F41.1 and Bipolar disorder, 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 [facility] [address] [place] [id number] [address]- 8426 Oct, Bipolar disorder, current episode depressed, moderate F31.32 and Generalized anxiety disorder F41.1 [facility] [address] [place] [id number] [address]- 1265 13 Oct, 2015 Bipolar disorder, current episode depressed, moderate F31.32 and Generalized anxiety disorder F41.1 [facility] [address] [place] [id number] [place] [address] 80773- 4475 08 Oct, 2015 Bipolar disorder, current episode depressed, moderate F31.32 and Generalized anxiety disorder F41.1 [facility] [address] [place] [id number] [place] [address] 49079- 9135 Oct, Bipolar disorder, current episode depressed, moderate F31.32 and Generalized anxiety disorder F41.1 [facility] [address] [place] [id number] [place] [address] 43385- 3145 Sep, Bipolar disorder, current episode depressed, moderate F31.32 and Generalized anxiety disorder F41.1 [place] [address] [place] [id number] [place] [address] 15126- 4052 Sep, Bipolar disorder, current episode depressed, moderate F31.32 and Generalized anxiety disorder F41.1 [facility] [address] [place] [id number] [place] [address] 08774- 9263 Sep, Bipolar disorder, current episode depressed, moderate F31.32 and Generalized anxiety disorder F41.1 [facility] [address] [place] [id number] [address]- 2586 Sep, [facility] [address] [place] [id number] [place] [address] 85766- 4609 Sep, Generalized anxiety disorder F41.1 and Bipolar disorder, current episode depressed, severe, without psychotic features F31.4 [facility] [address] [place] [id number] [address]- 6905 Aug, Bipolar disorder, 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 and Generalized anxiety disorder F41.1 [facility] [address] [place] [address] [id number] [address]- 1542 Aug, Bipolar disorder, 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 and Generalized anxiety disorder F41.1 [facility] [address] [place] [address] 38194- 7089 Jul, Bipolar disorder, 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 and Generalized anxiety disorder F41.1 [place] [address] [place] [id number] [place] [address] 10916- 7859 Jul, Bipolar disorder, 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 and Generalized anxiety disorder F41.1 [place] [address] [place] [id number] [place] [address] 41765- 4880 Jun, [place] [address] [place] [id number] [place] [address] 83468- 2757 Jun, Bipolar disorder, 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 and Generalized anxiety disorder F41.1 [place] [address] [place] [id number] [place] [address] 86452- 0027 Jun, Bipolar disorder, 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 and Generalized anxiety disorder F41.1 [place] [address] [place] [id number] [place] [address] 71892- 8738 Jun, Generalized anxiety disorder F41.1 and Bipolar disorder, 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 [place] [address] [place] [id number] [place] [address] 00374- 2462 May, Generalized anxiety disorder F41.1 and Bipolar disorder, current episode depressed, severe, without psychotic features F31.4 [place] [id number] [place] [address] 24787- 7001 May, Bipolar disorder, 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 [place] [address] [place] [address] 43982- 9289 May, [place] [address] [place] [id number] [place] [address] 09881- 0318 May, Bipolar disorder, unspecified F31.9 ; Generalized anxiety disorder F41.1 and Insomnia G47.00 [place] [address] [place] [id number] [place] [address] 25068- 4993 May, Bipolar disorder, current episode depressed, severe, without psychotic features F31.4 and Generalized anxiety disorder F41.1 [facility] [address] [address]- 9083 May, [facility] [address] [place] [address] 35654957- 1816 Apr, Bipolar disorder, current episode depressed, severe, without psychotic features F31.4 and Generalized anxiety disorder F41.1 [facility] [address] [place] [address] 88853- 0823 Apr, Bipolar disorder, current episode depressed, severe, without psychotic features F31.4 [place] [address] [place] [address] 76486- 1882 Apr, Bipolar disorder, current episode depressed, severe, without psychotic features F31.4 and Generalized anxiety disorder F41.1 [place] [address] [place] [id number] [place] [address] 56194- 5788 Mar, Bipolar disorder, unspecified 296.80 [facility] [address] [place] [address] 71466- 6436 Mar, Bipolar disorder, unspecified 296.80 ; Generalized anxiety disorder 300.02 and Depression, major, recurrent 296.30 [facility] [address] [address]- 2877 Feb, Bipolar disorder, unspecified 296.80 [facility] [address] [address]- 1457 Jan, Bipolar disorder, unspecified 296.80 [facility] [address] [address]- 1975 Dec, Bipolar disorder, unspecified 296.80 [facility] [address] [place] [address] 105942- 8065 Dec, Bipolar disorder, unspecified 296.80 ; Major depressive disorder, recurrent episode, unspecified 296.30 and Generalized anxiety disorder 300.02 [place] [address] [place] [id number] [place] [address]- 1631 November, Bipolar disorder, unspecified 296.80 [facility] [place] [facility] [address] [id number] [place] [address]- 8602 14 Oct, 2014 [facility] [place] [facility] [address] [facility] [id number] [place] [address]- 3954 Oct, [facility] [place] [facility] [address] [facility] [id number] [place] [address]- 1066 Sep, [facility] [place] [facility] [address] [facility] [id number] [place] [address]- 4295 Sep, [facility] [place] [facility] [address] [facility] [id number] [place] [address]- 1783 Jul, [facility] [place] [facility] [address] [place] [id number] [place] [address]- 1434 Jul, [facility] [place] [facility] [address] [place] [id number] [place] [address]- 1730 Jul, [facility] [place] [facility] [address] [place] [id number] [place] [address]- 8511 Jul, [facility] [place] [facility] [address] [place] [id number] [place] [address]- 4347 Jul, [facility] [place] [facility] [address] [place] [id number] [place] [address]- 8596 Jul, [facility] [place] [facility] [address] [place] [id number] [place] [address]- 5123 Jun, [facility] [place] [facility] [address] [facility] [id number] [place] 8692 Jun, [facility] [place] [facility] [address] [place] [id number] [place] [address]- 8385 May, [facility] [place] [facility] [address] [facility] [id number] [place] [address]- 3978 May, [facility] [place] [facility] [address] [facility] [id number] [place] [address]- 0851 May, [facility] [place] [facility] [address] [id number] [place] [address]- 3821 May, [facility] [place] [facility] [address] [id number] [place] [address]- 4707 Apr, [facility] [place] [facility] [address] [id number] [place] [address]- 9615 Apr, [facility] [place] [facility] [address] [id number] [place] [address]- 2083 Mar, [facility] [place] [facility] [address] [id number] [place] [address]- 0858 Mar, [facility] [place] [facility] [address] [id number] [place] [address]- 6307 Feb, [facility] [place] [facility] [address] [id number] [place] [address]- 1139 Feb, [facility] [place] [facility] [address] [id number] [place] [address]- 9799 Feb, [facility] [place] [facility] [address] [id number] [place] [address]- 7407 Feb, [facility] [place] [facility] [address] [id number] [place] [address]- 7599 Feb, [facility] [place] [facility] [address] [id number] [address]- 6366 Feb, [facility] [place] [facility] [address] [id number] [address]- 0103 Feb, [facility] [place] [facility] [address] [id number] [place] [address]- 3561 Feb, [facility] [place] [facility] [address] [id number] [place] [address]- 4711 Feb, [facility] [place] [facility] [address] [id number] [place] [address]- 0303 Feb, [facility] [place] [facility] [address] [id number] [place] [address]- 6302 Feb, [facility] [place] [facility] [address] [id number] [place] [address]- 8354 Feb, [facility] [place] [facility] [address] [id number] [place] [address]- 1481 Feb, [facility] [place] [facility] [address] [id number] [place] [address]- 7645 Feb, [facility] [place] [facility] [address] [id number] [place] [address]- 0191 Jan, [facility] [place] [facility] [address] [id number] [place] [address]- 1924 Jan, [facility] [place] [facility] [address] [id number] [place] [address]- 4717 Jan, [facility] [place] [facility] [address] [id number] [place] [address]- 1681 Jan, [facility] [place] [facility] [address] [id number] [place] [address]- 0459 Jan, [facility] [place] [facility] [address] [id number] [place] [address]- 8121 Jan, [facility] [place] [facility] [address] [id number] [place] [address]- 8483 Jan, [facility] [place] [facility] [address] [id number] [place] [address]- 7251 Jan, [facility] [place] [facility] [address] [id number] [place] [address]- 1599 Dec, [facility] [place] [facility] [address] [id number] [place] [address]- 8617 Dec, [facility] [place] [facility] [address] [id number] [place] [address]- 8757 Dec, [facility] [place] [facility] [address] [id number] [place] [address]- 1464 Dec, [facility] [place] [facility] [address] [id number] [place] [address]- 7596 Dec, [facility] [place] [facility] [address] [id number] [place] [address]- 1449 Dec, [facility] [place] [facility] [address] [id number] [place] [address]- 2355 November, [facility] [place] [facility] [address] [id number] [place] [address]- 4106 November, [facility] [place] [facility] [address] [id number] [place] [address]- 0089 November, [facility] [place] [facility] [address] [id number] [place] [address]- 0071 November, [facility] [place] [facility] [address] [id number] [place] [address]- 3015 Oct, [facility] [place] [facility] [address] [id number] [place] [address]- 6848 Oct, [facility] [place] [facility] [address] [id number] [place] [address]- 4746 Sep, [facility] [place] [facility] [address] [id number] [place] [address]- 6195 Sep, [facility] [place] [facility] [address] [id number] [place] [address]- 2381 Sep, [facility] [place] [facility] [address] [id number] [place] [address]- 6032 Sep, [facility] [place] [facility] [address] [id number] [place] [address]- 6304 Sep, [facility] [place] [facility] [address] [id number] [place] [address]- 1098 Sep, [facility] [place] [facility] [address] [id number] [place] [address]- 2231 Sep, [facility] [place] [facility] [address] [id number] [place] [address]- 5668 Sep, [facility] [place] [facility] [address] [id number] [place] [address]- 0709 Aug, [facility] [place] [facility] [address] [id number] [place] [address]- 1616 Aug, [facility] [place] [facility] [address] [id number] [place] [address]- 7946 Aug, [facility] [place] [facility] [address] [id number] [place] [address]- 8317 Aug, [facility] [place] [facility] [address] [id number] [place] [address]- 4606 Aug, [facility] [place] [facility] [address] [id number] [place] [address]- 3453 Aug, [facility] [place] [facility] [address] [id number] [place] [address]- 7630 Aug, [facility] [place] [facility] [address] [id number] [place] [address]- 2671 Aug, [facility] [place] [facility] [address] [id number] [place] [address]- 9476 Jul, [facility] [place] [facility] [address] [id number] [place] [address]- 9460 Jul, [facility] [place] [facility] [address] [id number] [place] [address]- 3006 Jul, [facility] [place] [facility] [address] [id number] [place] [address]- 7729 Jul, [facility] [place] [facility] [address] [id number] [place] [address]- 7815 Jul, [facility] [place] [facility] [address] [id number] [place] [address] Jul, [facility] [place] [facility] [address] [id number] [address] Jul, [facility] [place] [facility] [address] [id number] [place] [address] Jul, [facility] [place] [facility] [address] [id number] [place] [address] Jun, [facility] [place] [facility] [address] [id number] [place] [address] Jun, [facility] [place] [facility] [address] [id number] [place] [address] Jun, [facility] [address] [id number] [place] [address] Jun, [facility] [place] [facility] [address] [id number] [place] [address] May, [facility] [address] [id number] [place] [address] May, [facility] [address] [id number] [place] [address] May, [facility] [place] [facility] [address] [id number] [place] [address] May, [facility] [place] [facility] [address] [id number] [place] [address] May, [facility] [place] [facility] [address] [id number] [place] [address] May, [facility] [place] [facility] [address] [id number] [address] May, [facility] [place] [facility] [address] [id number] [place] [address] May, [facility] [place] [facility] [address] [id number] [place] [address] Apr, [facility] [place] [facility] [address] [id number] [place] [address] Apr, [facility] [place] [facility] [address] [id number] [place] [address] Apr, [facility] [place] [facility] [address] [id number] [place] [address] Apr, [facility] [place] [facility] [address] [id number] [place] [address] Apr, [facility] [place] [facility] [address] [id number] [place] [address] Apr, [facility] [place] [facility] [address] [id number] [place] [address] Apr, [facility] [place] [facility] [address] [id number] [place] [address] Apr, [facility] [place] [facility] [address] [id number] [place] [address] Apr, [facility] [place] [facility] [address] [id number] [place] [address] Apr, [facility] [place] [facility] [address] [id number] [place] [address] Apr, [facility] [place] [facility] [address] [id number] [place] [address] Mar, [facility] [place] [facility] [address] [id number] [place] [address] Feb, [facility] [place] [facility] [address] [id number] [place] [address] Feb, [facility] [place] [facility] [address] [id number] [place] [address] Feb, [facility] [place] [facility] [address] [id number] [place] [address] Jan, [facility] [place] [facility] [address] [id number] [place] [address] Dec, [facility] [place] [facility] [address] [id number] [place] [address] Dec, [facility] [place] [facility] [address] [id number] [place] [address] 14 Dec, 2012 [facility] [address] [id number] [place] [address] November, [facility] [address] [id number] [place] [address] November, [facility] [address] [id number] [place] [address] November, [facility] [address] [id number] [place] [address] Oct, [facility] [address] [id number] [place] [address] Oct, [facility] [address] [id number] [place] [address] Oct, [facility] [address] [id number] [place] [address] Sep, [facility] [address] [id number] [place] [address] Sep, [facility] [address] [id number] [place] [address] Sep, [facility] [address] [id number] [place] [address] Aug, [facility] [address] [id number] [place] [address] Jul, [facility] [address] [id number] [place] [address] Jul, [facility] [address] [id number] [place] [address] Jun, [facility] [address] [id number] [place] [address] Jun, [facility] [address] [id number] [place] [address] May, [facility] [place] [facility] [address] [id number] [place] [address] May, [facility] [place] [facility] [address] [id number] [place] [address] May, [facility] [place] [facility] [address] [id number] [place] [address] May, [facility] [place] [facility] [address] [id number] [place] [address] May, [facility] [place] [facility] [address] [id number] [place] [address] May, [facility] [place] [facility] [address] [id number] [place] [address] Apr, [facility] [place] [facility] [address] [id number] [place] [address] Feb, [facility] [place] [facility] [address] [id number] [place] [address] Dec, [facility] [place] [facility] [address] [id number] [place] [address] November, [facility] [place] [facility] [address] [id number] [place] [address] Oct, [facility] [place] [facility] [address] [id number] [place] [address] Oct, [facility] [place] [facility] [address] [id number] [place] [address] Oct, [facility] [place] [facility] [address] [id number] [place] [address] Sep, [facility] [place] [facility] [address] [id number] [place] [address] 14 Sep, 2011 [facility] [place] [facility] [address] [facility] [id number] [place] [address] 15 Aug, 2011 [facility] [place] [facility] [address] [id number] [address] Jul, [facility] [id number] [address] Jul, [facility] [id number] [address] [address] Jun, [facility] [id number] [address] Jun, [facility] [id number] [address] May, [facility] [id number] [place] [address] May, [facility] [id number] [address] Apr, [facility] [id number] [address] Mar, [facility] [id number] [address] Jan, [facility] [address]65[address] [address] Dec, [facility] [address]65100[place] [address] Jun, [facility] [address]65[address] [address] Jun, [facility] [address]65[address] [address] May, [facility] [address] [id number] [address] May, IMMUNIZATIONS No Known Immunizations SOCIAL HISTORY Never Assessed REASON FOR VISIT BH f/u, Depression. PLAN OF CARE Activity Details Follow Up 2 Weeks Reason:depression VITAL SIGNS MEDICATIONS Unknown Medications RESULTS No Results PROCEDURES Procedure Date Ordered Result Body Site [facility] VISIT MENTAL HEALTH ESTAB PT November 05, 2017 Psychotherapy, patient &/family, 30 minutes, established patient November 05, 2017 INSTRUCTIONS MEDICATIONS ADMINISTERED No Known Medications [...] 05/19/17 Hospitalization History UTI - Hospital ED [facility] 05/31/17 Hospitalization History UTI 08-06-17
--- OUTSIDE RECORDS SUMMARY | 2018-11-19 07:36 | XMS REPORT ---
Author Author RYNE CAMP Organization [facility] Address [address] [place] [address] Care Team Providers Care Sheet Turner Name Role Phone RYNE CAMP Unavailable PROBLEMS Type Condition ICD9-CM Code [id number] Code Onset Dates Condition Status SNOMED Code Problem Bipolar disorder, current episode depressed, moderate F31.32 Active 233643045 Problem Generalized anxiety disorder F41.1 Active [id number] ALLERGIES No Information ENCOUNTERS Encounter Location Date Diagnosis [place] [id number] [place] [address] 48138- 7090 May, [place] [address] [place] [id number] [place] [address] 93314- 4966 Feb, [place] [id number] [place] [id number] [place] [address] 69476- 3378 Jan, Bipolar disorder, current episode depressed, moderate F31.32 and Generalized anxiety disorder F41.1 [place] [address] [address] 4038 Jan, Bipolar disorder, current episode depressed, moderate F31.32 and Generalized anxiety disorder F41.1 [place] [address] [place] [id number] [place] [address] 27939- 2943 Jan, Bipolar disorder, current episode depressed, moderate F31.32 [place] [address] [place] [id number] [place] [address] 91366- 0426 Jan, Bipolar disorder, current episode depressed, moderate F31.32 [place] [id number] [place] [address] 73260- 8345 Jan, Bipolar disorder, current episode depressed, moderate F31.32 and Generalized anxiety disorder F41.1 [place] [address] [place] [id number] [address]- 2626 Dec, Bipolar disorder, current episode depressed, moderate F31.32 and Generalized anxiety disorder F41.1 [facility] [address] [place] [id number] [place] [address] 21673- 9589 November, Bipolar disorder, current episode depressed, moderate F31.32 and Generalized anxiety disorder F41.1 [facility] [address] [place] [id number] [place] [address] 65769- 9303 November, Bipolar disorder, current episode depressed, moderate F31.32 and Generalized anxiety disorder F41.1 [facility] [address] [place] [id number] [place] [address] 62085- 9188 Oct, Bipolar disorder, current episode depressed, moderate F31.32 and Generalized anxiety disorder F41.1 [facility] [address] [place] [id number] [place] [address] 95342- 6786 Oct, Bipolar disorder, current episode depressed, moderate F31.32 and Generalized anxiety disorder F41.1 [facility] [id number] [place] [address] 26796- 6694 Oct, Bipolar disorder, current episode depressed, moderate F31.32 [facility] [id number] [place] [address] 63598- 5705 Oct, Bipolar disorder, current episode depressed, moderate F31.32 and Generalized anxiety disorder F41.1 [facility] [id number] [place] [address] 06516- 6685 Sep, Bipolar disorder, current episode depressed, moderate F31.32 and Generalized anxiety disorder F41.1 [facility] [id number] [place] [address] 45051- 1222 Aug, Bipolar disorder, current episode depressed, moderate F31.32 [facility] [address] [address] 7954 Aug, Bipolar disorder, current episode depressed, moderate F31.32 and Generalized anxiety disorder F41.1 [facility] [id number] [place] [address] 40757- 3581 Jul, Bipolar disorder, current episode depressed, moderate F31.32 and Generalized anxiety disorder F41.1 [facility] [address] [place] [id number] [place] [address] 955276- 9867 Jul, Bipolar disorder, current episode depressed, moderate F31.32 and High risk medication use Z79.899 [place] [address] [place] [id number] [place] [address] 09374- 7670 Jul, Generalized anxiety disorder F41.1 and Bipolar disorder, current episode depressed, moderate F31.32 [place] [address] [place] [id number] [place] [address] 107544- 2275 Feb, Bipolar disorder, current episode depressed, moderate F31.32 and Generalized anxiety disorder F41.1 [place] [address] [place] [id number] [place] [address] 85335- 4081 November, Bipolar disorder, current episode depressed, moderate F31.32 and Generalized anxiety disorder F41.1 [place] [address] [place] [id number] [place] [address] 05362- 0041 Aug, Bipolar disorder, current episode depressed, moderate F31.32 and Generalized anxiety disorder F41.1 [place] [id number] [place] [address] 93005- 5341 Aug, [facility] [address] [place] [id number] [place] [address] 63941 -7978 Aug, Dysuria R30.0 and Acute cystitis with hematuria N30.01 [facility] [address] [place] [id number] [place] [address] 57333- 5843 Aug, Dysuria R30.0 [facility] [address] [place] [id number] [place] [address] 67764- 5254 Aug, Bipolar disorder, current episode depressed, moderate F31.32 and Generalized anxiety disorder F41.1 [place] [address] [place] [id number] [place] [address] [place] [address]- 7811 Jul, Bipolar disorder, current episode depressed, moderate F31.32 and Generalized anxiety disorder F41.1 [facility] [address] [address]- 3734 May, Generalized anxiety disorder F41.1 and Bipolar disorder, current episode depressed, moderate F31.32 [facility] [address] [place] [id number] [place] [address] 74739- 7543 May, Bipolar disorder, current episode depressed, moderate F31.32 and Generalized anxiety disorder F41.1 [facility] [id number] [place] [address] 05404- 7197 Apr, [facility] [address] [place] [id number] [place] [address] 49480- 2238 Apr, [facility] [address] [place] [id number] [place] [address] 94751- 0463 Apr, Bipolar disorder, current episode depressed, moderate F31.32 and Generalized anxiety disorder F41.1 [facility] [id number] [place] [address] 38800- 0149 Apr, [facility] [address] [place] [id number] [place] [address] 61473- 4671 Apr, Adjustment disorder with mixed anxiety and depressed mood F43.23 [facility] [id number] [place] [address] 91246- 6702 Mar, Bipolar disorder, current episode depressed, moderate F31.32 and Generalized anxiety disorder F41.1 [facility] [address] [address]- 6971 Feb, Bipolar disorder, current episode depressed, moderate F31.32 and Generalized anxiety disorder F41.1 [facility] [address] [place] [id number] [address]- 6234 Feb, [facility] [id number] [place] [address] 84416- 1017 Feb, Bipolar disorder, current episode depressed, moderate F31.32 and Generalized anxiety disorder F41.1 [facility] [address] [place] [id number] [address]- 4216 Feb, Generalized anxiety disorder F41.1 and Bipolar disorder, current episode depressed, moderate F31.32 [facility] [address] [place] [id number] [address]- 8863 Jan, Bipolar disorder, current episode depressed, moderate F31.32 and Generalized anxiety disorder F41.1 [facility] [address] [place] [id number] [place] [address] 36051- 2397 Jan, Bipolar disorder, current episode depressed, moderate F31.32 and Generalized anxiety disorder F41.1 [facility] [address] [place] [id number] [place] [address] 98978- 9983 Dec, Generalized anxiety disorder F41.1 and Bipolar disorder, current episode depressed, moderate F31.32 [place] [address] [place] [id number] [place] [address] 21936- 9754 Dec, Bipolar disorder, current episode depressed, moderate F31.32 and Generalized anxiety disorder F41.1 [facility] [id number] [place] [address] 88464- 8188 November, Bipolar disorder, current episode depressed, moderate F31.32 and Generalized anxiety disorder F41.1 [facility] [address] [place] [id number] [address]- 0572 November, Bipolar disorder, current episode depressed, moderate F31.32 and Generalized anxiety disorder F41.1 [facility] [address] [place] [id number] [address]- 4960 November, Generalized anxiety disorder F41.1 and Bipolar disorder, 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 [facility] [address] [place] [id number] [address]- 1152 Oct, Bipolar disorder, current episode depressed, moderate F31.32 and Generalized anxiety disorder F41.1 [facility] [address] [place] [id number] [address]- 0220 13 Oct, 2015 Bipolar disorder, current episode depressed, moderate F31.32 and Generalized anxiety disorder F41.1 [facility] [address] [place] [id number] [place] [address] 08001- 4073 08 Oct, 2015 Bipolar disorder, current episode depressed, moderate F31.32 and Generalized anxiety disorder F41.1 [facility] [address] [place] [id number] [place] [address] 56422- 4934 Oct, Bipolar disorder, current episode depressed, moderate F31.32 and Generalized anxiety disorder F41.1 [facility] [address] [place] [id number] [place] [address] 73595- 0069 Sep, Bipolar disorder, current episode depressed, moderate F31.32 and Generalized anxiety disorder F41.1 [place] [address] [place] [id number] [place] [address] 61693- 8353 Sep, Bipolar disorder, current episode depressed, moderate F31.32 and Generalized anxiety disorder F41.1 [facility] [address] [place] [id number] [place] [address] 59235- 0169 Sep, Bipolar disorder, current episode depressed, moderate F31.32 and Generalized anxiety disorder F41.1 [facility] [address] [place] [id number] [address]- 2005 Sep, [facility] [address] [place] [id number] [place] [address] 05619- 0330 Sep, Generalized anxiety disorder F41.1 and Bipolar disorder, current episode depressed, severe, without psychotic features F31.4 [facility] [address] [place] [id number] [address]- 2717 Aug, Bipolar disorder, 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 and Generalized anxiety disorder F41.1 [facility] [address] [place] [id number] [address]- 2050 Aug, Bipolar disorder, 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 and Generalized anxiety disorder F41.1 [facility] [id number] [place] [address] 81587- 3858 Jul, Bipolar disorder, 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 and Generalized anxiety disorder F41.1 [place] [address] [place] [id number] [place] [address] 35843- 5763 Jul, Bipolar disorder, 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 and Generalized anxiety disorder F41.1 [place] [address] [place] [id number] [place] [address] 98794- 0051 Jun, [place] [address] [place] [id number] [place] [address] 95877- 3537 Jun, Bipolar disorder, 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 and Generalized anxiety disorder F41.1 [place] [address] [place] [id number] [place] [address] 85208- 3834 Jun, Bipolar disorder, 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 and Generalized anxiety disorder F41.1 [place] [address] [place] [id number] [place] [address] 58204- 4562 Jun, Generalized anxiety disorder F41.1 and Bipolar disorder, 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 [place] [address] [place] [id number] [place] [address] 55219- 0852 May, Generalized anxiety disorder F41.1 and Bipolar disorder, current episode depressed, severe, without psychotic features F31.4 [place] [id number] [place] [address] 55486- 2385 May, Bipolar disorder, 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 [place] [id number] [place] [address] 76434- 2369 May, [place] [address] [place] [id number] [place] [address] 94933- 8347 May, Bipolar disorder, unspecified F31.9 ; Generalized anxiety disorder F41.1 and Insomnia G47.00 [place] [address] [place] [id number] [place] [address] 96277- 0374 May, Bipolar disorder, current episode depressed, severe, without psychotic features F31.4 and Generalized anxiety disorder F41.1 [facility] [address] [address]- 4139 May, [facility] [id number] [place] [address] [id number]- 4193 Apr, Bipolar disorder, current episode depressed, severe, without psychotic features F31.4 and Generalized anxiety disorder F41.1 [facility] [id number] [place] [address] 88756- 3218 Apr, Bipolar disorder, current episode depressed, severe, without psychotic features F31.4 [place] [id number] [place] [address] 37965- 2770 Apr, Bipolar disorder, current episode depressed, severe, without psychotic features F31.4 and Generalized anxiety disorder F41.1 [place] [address] [place] [id number] [place] [address] 84149- 4826 Mar, Bipolar disorder, unspecified 296.80 [facility] [id number] [place] [address] 70599- 3642 Mar, Bipolar disorder, unspecified 296.80 ; Generalized anxiety disorder 300.02 and Depression, major, recurrent 296.30 [facility] [address] [address]- 4579 Feb, Bipolar disorder, unspecified 296.80 [facility] [address] [address]- 0335 Jan, Bipolar disorder, unspecified 296.80 [facility] [address] [address]- 1542 Dec, Bipolar disorder, unspecified 296.80 [facility] [id number] [place] [address] 238859- 6328 Dec, Bipolar disorder, unspecified 296.80 ; Major depressive disorder, recurrent episode, unspecified 296.30 and Generalized anxiety disorder 300.02 [place] [address] [place] [id number] [place] [address]- 2338 November, Bipolar disorder, unspecified 296.80 [facility] [place] [facility] [address] [id number] [place] [address]- 5935 14 Oct, 2014 [facility] [place] [facility] [address] [facility] [id number] [place] [address]- 4298 Oct, [facility] [place] [facility] [address] [facility] [id number] [place] [address]- 7806 Sep, [facility] [place] [facility] [address] [facility] [id number] [place] [address]- 7385 Sep, [facility] [place] [facility] [address] [facility] [id number] [place] [address]- 9952 Jul, [facility] [place] [facility] [address] [place] [id number] [place] [address]- 2607 Jul, [facility] [place] [facility] [address] [place] [id number] [place] [address]- 3855 Jul, [facility] [place] [facility] [address] [place] [id number] [place] [address]- 1666 Jul, [facility] [place] [facility] [address] [place] [id number] [place] [address]- 4093 Jul, [facility] [place] [facility] [address] [place] [id number] [place] [address]- 9176 Jul, [facility] [place] [facility] [address] [place] [id number] [place] [address]- 8508 Jun, [facility] [place] [facility] [address] [facility] [id number] [place] 7017 Jun, [facility] [place] [facility] [address] [place] [id number] [place] [address]- 8677 May, [facility] [place] [facility] [address] [facility] [id number] [place] [address]- 6059 May, [facility] [place] [facility] [address] [facility] [id number] [place] [address]- 6547 May, [facility] [place] [facility] [address] [id number] [place] [address]- 2137 May, [facility] [place] [facility] [address] [id number] [place] [address]- 6577 Apr, [facility] [place] [facility] [address] [id number] [place] [address]- 2090 Apr, [facility] [place] [facility] [address] [id number] [place] [address]- 6094 Mar, [facility] [place] [facility] [address] [id number] [place] [address]- 5469 Mar, [facility] [place] [facility] [address] [id number] [place] [address]- 1577 Feb, [facility] [place] [facility] [address] [id number] [place] [address]- 6588 Feb, [facility] [place] [facility] [address] [id number] [place] [address]- 7260 Feb, [facility] [place] [facility] [address] [id number] [place] [address]- 5014 Feb, [facility] [place] [facility] [address] [id number] [place] [address]- 4273 Feb, [facility] [place] [facility] [address] [id number] [address]- 6613 Feb, [facility] [place] [facility] [address] [id number] [address]- 8582 Feb, [facility] [place] [facility] [address] [id number] [place] [address]- 7426 Feb, [facility] [place] [facility] [address] [id number] [place] [address]- 6486 Feb, [facility] [place] [facility] [address] [id number] [place] [address]- 5788 Feb, [facility] [place] [facility] [address] [id number] [place] [address]- 7454 Feb, [facility] [place] [facility] [address] [id number] [place] [address]- 6588 Feb, [facility] [place] [facility] [address] [id number] [place] [address]- 4054 Feb, [facility] [place] [facility] [address] [id number] [place] [address]- 2174 Feb, [facility] [place] [facility] [address] [id number] [place] [address]- 0631 Jan, [facility] [place] [facility] [address] [id number] [place] [address]- 8237 Jan, [facility] [place] [facility] [address] [id number] [place] [address]- 0683 Jan, [facility] [place] [facility] [address] [id number] [place] [address]- 7853 Jan, [facility] [place] [facility] [address] [id number] [place] [address]- 2136 Jan, [facility] [place] [facility] [address] [id number] [place] [address]- 7978 Jan, [facility] [place] [facility] [address] [id number] [place] [address]- 0930 Jan, [facility] [place] [facility] [address] [id number] [place] [address]- 4924 Jan, [facility] [place] [facility] [address] [id number] [place] [address]- 6189 Dec, [facility] [place] [facility] [address] [id number] [place] [address]- 9794 Dec, [facility] [place] [facility] [address] [id number] [place] [address]- 2600 Dec, [facility] [place] [facility] [address] [id number] [place] [address]- 7966 Dec, [facility] [place] [facility] [address] [id number] [place] [address]- 6143 Dec, [facility] [place] [facility] [address] [id number] [place] [address]- 8217 Dec, [facility] [place] [facility] [address] [id number] [place] [address]- 7934 November, [facility] [place] [facility] [address] [id number] [place] [address]- 6523 November, [facility] [place] [facility] [address] [id number] [place] [address]- 5325 November, [facility] [place] [facility] [address] [id number] [place] [address]- 8408 November, [facility] [place] [facility] [address] [id number] [place] [address]- 3868 Oct, [facility] [place] [facility] [address] [id number] [place] [address]- 1122 Oct, [facility] [place] [facility] [address] [id number] [place] [address]- 2325 Sep, [facility] [place] [facility] [address] [id number] [place] [address]- 7515 Sep, [facility] [place] [facility] [address] [id number] [place] [address]- 6071 Sep, [facility] [place] [facility] [address] [id number] [place] [address]- 1787 Sep, [facility] [place] [facility] [address] [id number] [place] [address]- 6719 Sep, [facility] [place] [facility] [address] [id number] [place] [address]- 8386 Sep, [facility] [place] [facility] [address] [id number] [place] [address]- 6792 Sep, [facility] [place] [facility] [address] [id number] [place] [address]- 5648 Sep, [facility] [place] [facility] [address] [id number] [place] [address]- 4171 Aug, [facility] [place] [facility] [address] [id number] [place] [address]- 6786 Aug, [facility] [place] [facility] [address] [id number] [place] [address]- 3526 Aug, [facility] [place] [facility] [address] [id number] [place] [address]- 4952 Aug, [facility] [place] [facility] [address] [id number] [place] [address]- 3796 Aug, [facility] [place] [facility] [address] [id number] [place] [address]- 5914 Aug, [facility] [place] [facility] [address] [id number] [place] [address]- 4889 Aug, [facility] [place] [facility] [address] [id number] [place] [address]- 2532 Aug, [facility] [place] [facility] [address] [id number] [place] [address]- 3952 Jul, [facility] [place] [facility] [address] [id number] [place] [address] Jul, [facility] [place] [facility] [address] [id number] [place] [address] Jul, [facility] [place] [facility] [address] [id number] [place] [address] Jul, [facility] [place] [facility] [address] [id number] [place] [address] Jul, [facility] [place] [facility] [address] [id number] [place] [address] Jul, [facility] [place] [facility] [address] [id number] [address] Jul, [facility] [place] [facility] [address] [id number] [place] [address] Jul, [facility] [place] [facility] [address] [id number] [place] [address] Jun, [facility] [place] [facility] [address] [id number] [place] [address] Jun, [facility] [place] [facility] [address] [id number] [id number] Jun, [facility] [address] [id number] [place] [address] Jun, [facility] [place] [facility] [address] [id number] [place] [address] May, [facility] [address] [id number] [place] [address] May, [facility] [address] [id number] [place] [address] May, [facility] [place] [facility] [address] [id number] [place] [address] May, [facility] [place] [facility] [address] [id number] [place] [address] May, [facility] [place] [facility] [address] [id number] [place] [address] May, [facility] [place] [facility] [address] [id number] [place] [address] May, [facility] [place] [facility] [address] [id number] [place] [address] May, [facility] [place] [facility] [address] [id number] [place] [address] Apr, [facility] [place] [facility] [address] [id number] [place] [address] Apr, [facility] [place] [facility] [address] [id number] [place] [address] Apr, [facility] [place] [facility] [address] [id number] [place] [address] Apr, [facility] [place] [facility] [address] [id number] [place] [address] Apr, [facility] [place] [facility] [address] [id number] [place] [address] Apr, [facility] [place] [facility] [address] [id number] [place] [address] Apr, [facility] [place] [facility] [address] [id number] [place] [address] Apr, [facility] [place] [facility] [address] [id number] [place] [address] Apr, [facility] [place] [facility] [address] [id number] [place] [address] Apr, [facility] [place] [facility] [address] [id number] [place] [address] Apr, [facility] [place] [facility] [address] [id number] [place] [address] Mar, [facility] [place] [facility] [address] [id number] [place] [address] Feb, [facility] [place] [facility] [address] [id number] [address] Feb, [facility] [place] [facility] [address] [id number] [address] Feb, [facility] [place] [facility] [address] [id number] [place] [address] Jan, [facility] [place] [facility] [address] [id number] [place] [address] Dec, [facility] [place] [facility] [address] [id number] [place] [address] Dec, [facility] [place] [facility] [address] [id number] [place] [address] 14 Dec, 2012 [facility] [address] [id number] [place] [address] November, [facility] [address] [id number] [place] [address] November, [facility] [address] [id number] [place] [address] November, [facility] [address] [id number] [place] [address] Oct, [facility] [address] [id number] [place] [address] Oct, [facility] [address] [id number] [place] [address] Oct, [facility] [address] [id number] [place] [address] Sep, [facility] [address] [id number] [place] [address] Sep, [facility] [address] [id number] [place] [address] Sep, [facility] [address] [id number] [place] [address] Aug, [facility] [address] [id number] [place] [address] Jul, [facility] [address] [id number] [place] [address] Jul, [facility] [address] [id number] [place] [address] Jun, [facility] [address] [id number] [place] [address] Jun, [facility] [address] [id number] [place] [address] May, [facility] [place] [facility] [address] [id number] [place] [address] May, [facility] [place] [facility] [address] [id number] [place] [address] 47[address] May, [facility] [place] [facility] [address] [id number] [place] [address] May, [facility] [place] [facility] [address] [id number] [place] [address] May, [facility] [place] [facility] [address] [id number] [place] [address] May, [facility] [place] [facility] [address] [id number] [place] [address] Apr, [facility] [place] [facility] [address] [id number] [place] [address] 1486 Feb, [facility] [place] [facility] [address] [id number] [place] [address] Dec, [facility] [place] [facility] [address] [id number] [place] [address] November, [facility] [place] [facility] [address] [id number] [place] [address] Oct, [facility] [place] [facility] [address] [id number] [place] [address] Oct, [facility] [place] [facility] [address] [id number] [place] [address] Oct, [facility] [place] [facility] [address] [id number] [place] [address] Sep, [facility] [place] [facility] [address] [id number] [place] [address] 14 Sep, 2011 [facility] [place] [facility] [address] [facility] [id number] [place] [address] 15 Aug, 2011 [facility] [place] [facility] [id number] [address] Jul, [facility] [id number] [address] Jul, [facility] [id number] [address] Jun, [facility] [id number] [address] Jun, [facility] [id number] [address] May, [facility] [id number] [place] [address] May, [facility] [id number] [address] Apr, [facility] [id number] [address] Mar, [facility] [id number] [address] Jan, [facility] [id number] [address] Dec, [facility] [id number] [address] Jun, [facility] [id number] [address] Jun, [facility] [id number] [address] May, [facility] [id number] [address] May, IMMUNIZATIONS No Known Immunizations SOCIAL HISTORY Never Assessed REASON FOR VISIT BH f/u, Depression. PLAN OF CARE Activity Details Follow Up 2 Weeks Reason:depression VITAL SIGNS MEDICATIONS Unknown Medications RESULTS No Results PROCEDURES Procedure Date Ordered Result Body Site [facility] VISIT MENTAL HEALTH ESTAB PT October 20, 2017 Psychotherapy, patient &/family, 30 minutes, established patient October 20, 2017 INSTRUCTIONS MEDICATIONS ADMINISTERED No Known Medications [...] 05/19/17 Hospitalization History UTI - Hospital ED [facility], [place], operated by [facility] 05/31/17 Hospitalization History UTI 08-06-17
--- OUTSIDE RECORDS SUMMARY | 2018-11-19 07:37 | XMS REPORT ---
Author Author ISABEL NARINDER Organization [facility] Address [address] [place] [address] Care Team Providers Care Stack Matcher Name Role Phone ISABEL NARINDER Unavailable PROBLEMS Type Condition ICD9-CM Code [id number] Code Onset Dates Condition Status SNOMED Code Problem Bipolar disorder, current episode depressed, moderate F31.32 Active 761363225 Problem Generalized anxiety disorder F41.1 Active [id number] ALLERGIES Substance Reaction Event Type Date Status Penicillin V Potassium hives Drug Allergy Oct, Active Macrodantin hives Drug Allergy Oct, Active Mushrooms hives, upset stomach Non Drug Allergy Oct, Active Cow milk hives, upset stomach Non Drug Allergy Oct, Active Goat milk hives, upset stomach Non Drug Allergy Oct, Active Eggs hives, upset stomach Non Drug Allergy Oct, Active Soy hives, upset stomach Non Drug Allergy Oct, Active ENCOUNTERS Encounter Location Date Diagnosis [place] [address] [address] May, [place] [address], [place] [address] 14[address] Feb, [place] [address] [id number] [place] [address] 78584- 0361 Jan, Bipolar disorder, current episode depressed, moderate F31.32 and Generalized anxiety disorder F41.1 [place] [address] [id number] [place] [address] 89071- 2255 Jan, Bipolar disorder, current episode depressed, moderate F31.32 and Generalized anxiety disorder F41.1 [place] [address] [id number], [place] [address] Jan, Bipolar disorder, current episode depressed, moderate F31.32 [facility] [id number] [address] 4971 Jan, Bipolar disorder, current episode depressed, moderate F31.32 [facility] [id number] [place] [address] 77234- 8685 Jan, Bipolar disorder, current episode depressed, moderate F31.32 and Generalized anxiety disorder F41.1 [facility] [id number] [place] [address] 59222- 7051 Dec, Bipolar disorder, current episode depressed, moderate F31.32 and Generalized anxiety disorder F41.1 [place] [id number] [place] [address] 32822- 2629 November, Bipolar disorder, current episode depressed, moderate F31.32 and Generalized anxiety disorder F41.1 [place] [id number] [place] [address] 91061- 7318 November, Bipolar disorder, current episode depressed, moderate F31.32 and Generalized anxiety disorder F41.1 [facility] [id number] [place] [address] 58353- 5452 Oct, Bipolar disorder, current episode depressed, moderate F31.32 and Generalized anxiety disorder F41.1 [facility] [id number] [place] [address] 62995- 9716 Oct, Bipolar disorder, current episode depressed, moderate F31.32 and Generalized anxiety disorder F41.1 [facility] [id number] [place] [address] 14177- 1781 Oct, Bipolar disorder, current episode depressed, moderate F31.32 [facility] [id number] [place] [address] 58214- 9581 Oct, Bipolar disorder, current episode depressed, moderate F31.32 and Generalized anxiety disorder F41.1 [facility] [id number] [place] [address] 56614- 1875 Sep, Bipolar disorder, current episode depressed, moderate F31.32 and Generalized anxiety disorder F41.1 [facility] [id number] [place] [address] 03469- 1311 Aug, Bipolar disorder, current episode depressed, moderate F31.32 [facility] [id number] [place] [address] 36172- 5571 Aug, Bipolar disorder, current episode depressed, moderate F31.32 and Generalized anxiety disorder F41.1 [place] [id number] [place] [address] 41818- 6160 Jul, Bipolar disorder, current episode depressed, moderate F31.32 and Generalized anxiety disorder F41.1 [place] [address] [id number] [place] [address] 20665- 5808 Jul, Bipolar disorder, current episode depressed, moderate F31.32 and High risk medication use Z79.899 [place] [address] [address] [id number] [place] [address] 95923- 3305 Jul, Generalized anxiety disorder F41.1 and Bipolar disorder, current episode depressed, moderate F31.32 [facility] [address] [id number] [place] [address] 78361- 6977 Feb, Bipolar disorder, current episode depressed, moderate F31.32 and Generalized anxiety disorder F41.1 [place] [id number] [place] [address] 08911- 1979 November, Bipolar disorder, current episode depressed, moderate F31.32 and Generalized anxiety disorder F41.1 [facility] [id number] [place] [address] 44460- 3038 Aug, Bipolar disorder, current episode depressed, moderate F31.32 and Generalized anxiety disorder F41.1 [facility] [id number] [place] [address] 95283- 0604 Aug, [facility] [id number] [place] [address] 24766 -4554 Aug, Dysuria R30.0 and Acute cystitis with hematuria N30.01 [facility] [id number] [place] [address] 31267- 3066 Aug, Dysuria R30.0 [facility] [address] [id number] [place] [address] 73280- 7716 Aug, Bipolar disorder, current episode depressed, moderate F31.32 and Generalized anxiety disorder F41.1 [facility] [id number] [place] [address] 63703- 7009 Jul, Bipolar disorder, current episode depressed, moderate F31.32 and Generalized anxiety disorder F41.1 [place] [address] [id number] [place] [address] 61908- 5902 May, Generalized anxiety disorder F41.1 and Bipolar disorder, current episode depressed, moderate F31.32 [place] [address] [id number] [place] [address] 75832- 7336 May, Bipolar disorder, current episode depressed, moderate F31.32 and Generalized anxiety disorder F41.1 [place] [address] [address] [id number] [place] [address] 79471- 8868 Apr, [facility] [address] [address] [id number] [place] [address] 21897- 4537 Apr, [facility] [id number] [place] [address] 98806- 9808 Apr, Bipolar disorder, current episode depressed, moderate F31.32 and Generalized anxiety disorder F41.1 [facility] [id number] [place] [address] 60102- 1894 Apr, [facility] [id number] [place] [address] 75209- 5654 Apr, Adjustment disorder with mixed anxiety and depressed mood F43.23 [facility] [id number] [place] [address] 16210- 4405 Mar, Bipolar disorder, current episode depressed, moderate F31.32 and Generalized anxiety disorder F41.1 [place] [address] [facility] [id number] [address] 0265 Feb, Bipolar disorder, current episode depressed, moderate F31.32 and Generalized anxiety disorder F41.1 [facility] [address] [facility] [id number], [place] [address]- 3165 Feb, [facility] [id number], [place] [address]- 2228 Feb, Bipolar disorder, current episode depressed, moderate F31.32 and Generalized anxiety disorder F41.1 [facility] [address] [facility] [id number] [address]- 9349 Feb, Generalized anxiety disorder F41.1 and Bipolar disorder, current episode depressed, moderate F31.32 [place] [address] [address] [id number], [place] [address]- 6549 Jan, Bipolar disorder, current episode depressed, moderate F31.32 and Generalized anxiety disorder F41.1 [place] [address] [place] [id number], [place] [address]- 2047 Jan, Bipolar disorder, current episode depressed, moderate F31.32 and Generalized anxiety disorder F41.1 [place] [address] [address] [id number], [place] [address]- 4414 Dec, Generalized anxiety disorder F41.1 and Bipolar disorder, current episode depressed, moderate F31.32 [place] [address] [place] [id number], [place] [address]- 0600 Dec, Bipolar disorder, current episode depressed, moderate F31.32 and Generalized anxiety disorder F41.1 [facility] [address] [facility] [id number], [place] [address]- 1532 November, Bipolar disorder, current episode depressed, moderate F31.32 and Generalized anxiety disorder F41.1 [facility] [address] 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 [facility] [id number] [place] [address] 33236- 1040 Oct, Bipolar disorder, current episode depressed, moderate F31.32 and Generalized anxiety disorder F41.1 [facility] [address] [id number] [place] [address] 21670- 2954 Oct, Bipolar disorder, current episode depressed, moderate F31.32 and Generalized anxiety disorder F41.1 [place] [address] [id number] [place] [address] 46075- 5289 Oct, Bipolar disorder, current episode depressed, moderate F31.32 and Generalized anxiety disorder F41.1 [facility] [address] [place] [id number] [place] [address] 08289- 6474 Oct, Bipolar disorder, current episode depressed, moderate F31.32 and Generalized anxiety disorder F41.1 [facility] [address] [place] [address] 45641- 3785 Sep, Bipolar disorder, current episode depressed, moderate F31.32 and Generalized anxiety disorder F41.1 [facility] [id number] [place] [address] 51343- 0185 24 Sep, 2015 Bipolar disorder, current episode depressed, moderate F31.32 and Generalized anxiety disorder F41.1 [facility] [address] [place] [address] 61093- 7270 Sep, Bipolar disorder, current episode depressed, moderate F31.32 and Generalized anxiety disorder F41.1 [facility] [id number] [place] [address] 76666- 3237 07 Sep, 2015 [facility] [id number] [place] [address] 18641- 2283 07 Sep, 2015 Generalized anxiety disorder F41.1 and Bipolar disorder, current episode depressed, severe, without psychotic features F31.4 [facility] [address], [place] [address]- 5594 Aug, Bipolar disorder, 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 and Generalized anxiety disorder F41.1 [facility] [id number] [place] [address] 69126- 8864 Aug, Bipolar disorder, 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 and Generalized anxiety disorder F41.1 [facility] [id number] [place] [address] 49567- 5280 Jul, Bipolar disorder, 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 and Generalized anxiety disorder F41.1 [facility] [address] [place] [id number] [place] [address] 81230- 5390 Jul, Bipolar disorder, 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 and Generalized anxiety disorder F41.1 [facility] [id number] [place] [address] 57127- 8988 Jun, [facility] [id number] [place] [address] 73139- 8213 Jun, Bipolar disorder, 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 and Generalized anxiety disorder F41.1 [facility] [address] [place] [address] 71741- 0066 Jun, Bipolar disorder, 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 and Generalized anxiety disorder F41.1 [facility] [id number] [place] [address] 32772- 2714 Jun, Generalized anxiety disorder F41.1 and Bipolar disorder, 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 [facility] [id number] [place] [address] 18342- 8337 May, Generalized anxiety disorder F41.1 and Bipolar disorder, current episode depressed, severe, without psychotic features F31.4 [facility] [id number] [place] [address] 83691- 2781 May, Bipolar disorder, 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 [facility] [id number] [address]- 3642 May, [facility] [id number] [place] [address] 21264- 3711 May, Bipolar disorder, unspecified F31.9 ; Generalized anxiety disorder F41.1 and Insomnia G47.00 [facility] [address] [id number] [place] [address] 11757- 9055 May, Bipolar disorder, current episode depressed, severe, without psychotic features F31.4 and Generalized anxiety disorder F41.1 [facility] [address] [place] [id number] [place] [address] 00874- 4585 May, [facility] [address] [id number] [place] [address] 99393- 7729 Apr, Bipolar disorder, current episode depressed, severe, without psychotic features F31.4 and Generalized anxiety disorder F41.1 [place] [address] [place] [id number] [place] [address] 76437- 6614 Apr, Bipolar disorder, current episode depressed, severe, without psychotic features F31.4 [facility] [address] [id number] [place] [address] 23421- 7686 Apr, Bipolar disorder, current episode depressed, severe, without psychotic features F31.4 and Generalized anxiety disorder F41.1 [facility] [address], [place] [address]- 6786 Mar, Bipolar disorder, unspecified 296.80 [facility] [address] [place] [id number] [place] [address] 67833- 2018 Mar, Bipolar disorder, unspecified 296.80 ; Generalized anxiety disorder 300.02 and Depression, major, recurrent 296.30 [facility] [address] [id number] [place] [address] 28222- 3552 Feb, Bipolar disorder, unspecified 296.80 [facility] [id number] [place] [address] 13992- 3289 Jan, Bipolar disorder, unspecified 296.80 [facility] [address] [facility] [id number], [place] [address]- 2043 Dec, Bipolar disorder, unspecified 296.80 [facility] [address] [facility] [id number], [place] [address]- 7376 Dec, Bipolar disorder, unspecified 296.80 ; Major depressive disorder, recurrent episode, unspecified 296.30 and Generalized anxiety disorder 300.02 [facility] [address] [facility] [id number], [place] [address]- 5383 November, Bipolar disorder, unspecified 296.80 [facility] [id number] [place] [address]- 0359 Oct, [facility] [id number], [place] [address]- 3848 Oct, [facility] [address], [place] [address]- 8670 Sep, [facility] [address], [place] [address]- 6725 Sep, [facility] [address], [place] [address]- 1163 Jul, [facility] [address], [place] [address]- 6878 Jul, [facility] [address], [place] [address]- 1171 Jul, [facility] [address], [place] [address]- 4278 Jul, [facility] [address], [place] [address]- 8942 Jul, [facility] [address]- 7807 Jul, [facility] [id number] 4797 Jun, [facility] [address] [id number] [place] [address]- 0901 Jun, [facility] [place] [facility] [address] [id number] [place] [address]- 9340 May, [facility] [place] [facility] [address] [id number] [place] [address]- 5868 May, [facility] [place] [facility] [address] [id number] [place] [address]- 7926 May, [facility] [place] [facility] [address] [id number] [place] [address]- 6578 May, [facility] [place] [facility] [address] [id number] [place] [address]- 9099 Apr, [facility] [place] [facility] [address] [id number] [place] [address]- 4143 Apr, [facility] [place] [facility] [address] [id number] [place] [address]- 4804 Mar, [facility] [place] [facility] [address] [id number] [place] [address]- 4869 Mar, [facility] [place] [facility] [address] [id number] [place] [address]- 1845 Feb, [facility] [place] [facility] [address] [id number] [place] [address]- 8284 Feb, [facility] [place] [facility] [address] [id number] [place] [address]- 0785 Feb, [facility] [place] [facility] [address] [id number] [place] [address]- 4884 Feb, [facility] [place] [facility] [address] [id number] [place] [address]- 2588 Feb, [facility] [place] [facility] [address] [id number] [place] [address]- 7097 Feb, [facility] [place] [facility] [address] [id number] [place] [address]- 2116 Feb, [facility] [place] [facility] [address] [id number] [place] [address]- 9427 Feb, [facility] [place] [facility] [address] [id number] [place] [address]- 7309 Feb, [facility] [place] [facility] [address] [id number] [place] [address]- 6524 Feb, [facility] [place] [facility] [address] [id number] [place] [address]- 2184 Feb, [facility] [place] [facility] [address] [id number] [place] [address]- 7405 Feb, [facility] [place] [facility] [address] [id number] [place] [address]- 9327 Feb, [facility] [place] [facility] [address] [id number] [place] [address]- 8051 Feb, [facility] [place] [facility] [address] [id number] [place] [address]- 1152 Jan, [facility] [place] [facility] [address] [id number] [place] [address]- 0995 Jan, [facility] [place] [facility] [address] [id number] [place] [address]- 2362 Jan, [facility] [place] [facility] [address] [id number] [place] [address]- 0949 Jan, [facility] [place] [facility] [address] [id number] [place] [address]- 1838 Jan, [facility] [place] [facility] [address] [id number] [place] [address]- 6138 Jan, [facility] [place] [facility] [address] [id number] [place] [address]- 5583 Jan, [facility] [place] [facility] [address] [id number] [place] [address]- 4152 Jan, [facility] [place] [facility] [address] [id number] [place] [address]- 5128 Dec, [facility] [place] [facility] [address] [id number] [place] [address]- 0542 Dec, [facility] [place] [facility] [address] [id number] [place] [address]- 9280 Dec, [facility] [place] [facility] [address] [id number] [place] [address]- 2090 Dec, [facility] [place] [facility] [address] [id number] [place] [address]- 7281 Dec, [facility] [place] [facility] [address] [id number] [place] [address]- 0518 Dec, [facility] [place] [facility] [address] [id number] [place] [address]- 0801 November, [facility] [place] [facility] [address] [id number] [place] [address]- 5335 November, [facility] [place] [facility] [address] [id number] [place] [address]- 5933 November, [facility] [place] [facility] [address] [id number] [place] [address]- 7878 November, [facility] [place] [facility] [address] [facility] [id number] [place] [address]- 3636 Oct, [facility] [place] [facility] [address] [id number] [place] [address]- 0254 Oct, [facility] [place] [facility] [address] [id number] [place] [address]- 7151 Sep, [facility] [place] [facility] [address] [id number] [place] [address]- 9765 Sep, [facility] [place] [facility] [address] [id number] [place] [address]- 5351 Sep, [facility] [place] [facility] [address] [id number] [place] [address]- 9892 Sep, [facility] [place] [facility] [address] [id number] [place] [address]- 3824 Sep, [facility] [place] [facility] [address] [id number] [place] [address]- 1096 Sep, [facility] [place] [facility] [address] [id number] [place] [address]- 1359 Sep, [facility] [place] [facility] [address] [id number] [place] [address]- 3919 Sep, [facility] [place] [facility] [address] [id number] [place] [address]- 6751 Aug, [facility] [place] [facility] [address] [id number] [place] [address]- 7969 Aug, [facility] [place] [facility] [address] [facility] [id number] [place] [address]- 7141 Aug, [facility] [place] [facility] [address] [id number] [place] [address]- 3596 Aug, [facility] [place] [facility] [address] [id number] [place] [address]- 0658 Aug, [facility] [place] [facility] [address] [facility] [id number] [place] [address] Aug, [facility] [place] [facility] [address] [facility] [id number] [place] [address] Aug, [facility] [place] [facility] [address] [id number], [place] [address] Aug, [facility] [place] [facility] [address] [id number] [place] [address] Jul, [facility] [place] [facility] [address] [id number] [place] [address] Jul, [facility] [place] [facility] [address] [id number] [place] [address] Jul, [facility] [place] [facility] [address] [id number], [place] [address] Jul, [facility] [address] [id number] [place] [address] Jul, [facility] [place] [facility] [address] [facility] [id number], [place] [address] Jul, [facility] [address] [facility] [id number] [place] [address] Jul, [facility] [place] [facility] [address] [id number] [place] [address] Jul, [facility] [address] [facility] [id number] [place] [address] Jun, [facility] [place] [facility] [address] [facility] [id number] [place] [address] Jun, [facility] [id number], [place] [address] Jun, [facility] [place] [facility] [address] [facility] [id number] [place] [address] Jun, [facility] [address] [id number], [place] [address] May, [facility] [place] [facility] [address] [id number], [place] [address] May, [facility] [address] [facility] [id number], [place] [address] May, [facility] [place] [facility] [address] [facility] [id number], [place] [address] May, [facility] [place] [facility] [address] [facility] [id number], [place] [address] May, [facility] [place] [facility] [address] [facility] [id number], [place] [address] May, [facility] [place] [facility] [address] [id number], [place] [address] May, [facility] [place] [facility] [address] [id number] [place] [address] May, [facility] [place] [facility] [address] [id number] [place] [id number] Apr, [facility] [place] [facility] [address] [id number] [place] [address] Apr, [facility] [place] [facility] [address] [id number] [place] [address] Apr, [facility] [place] [facility] [address] [id number] [place] [address] Apr, [facility] [place] [facility] [address] [id number] [place] [address] Apr, [facility] [place] [facility] [address] [id number] [place] [address] Apr, [facility] [place] [facility] [address] [id number] [place] [address] Apr, [facility] [place] [facility] [address] [id number] [place] [address] Apr, [facility] [place] [facility] [address] [id number] [place] [address] Apr, [facility] [place] [facility] [address] [id number] [place] [address] Apr, [facility] [place] [facility] [address] [id number] [place] [address] Apr, [facility] [place] [facility] [address] [id number] [place] [address] Mar, [facility] [place] [facility] [address] [id number] [place] [address] Feb, [facility] [place] [facility] [address] [id number] [place] [address] Feb, [facility] [place] [facility] [address] [id number] [place] [address] Feb, [facility] [address] [id number] [place] [address] Jan, [facility] [address] [id number] [place] [address] Dec, [facility] [address] [id number] [place] [address] Dec, [facility] [address] [id number] [place] [address] Dec, [facility] [address] [id number] [place] [address] November, [facility] [address] [id number] [place] [address] November, [facility] [address] [id number] [place] [address] November, [facility] [address] [id number] [place] [address] Oct, [facility] [address] [id number] [place] [address] Oct, [facility] [place] [facility] [address] [id number] [place] [address]70 Oct, [facility] [address] [id number], [place] [address] Sep, [facility] [place] [facility] [address] [id number], [place] [address] Sep, [facility] [place] [facility] [address] [id number] [place] [address] Sep, [facility] [place] [facility] [address] [id number], [place] [address] Aug, [facility] [place] [facility] [address] [id number] [place] [address] Jul, [facility] [place] [facility] [address] [id number] [place] [address] Jul, [facility] [place] [facility] [address] [id number] [place] [address] Jun, [facility] [place] [facility] [address] [id number] [place] [address] Jun, [facility] [place] [facility] [address] [id number] [place] [address] May, [facility] [place] [facility] [address] [id number] [place] [address] May, [facility] [place] [facility] [address] [id number] [place] [address] May, [facility] [place] [facility] [address] [id number] [place] [address]- 3529 May, [facility] [place] [facility] [address] [id number] [place] [address] May, [facility] [place] [facility] [address] [id number] [place] [address] May, [facility] [place] [facility] [address] [id number] [place] [address] Apr, [facility] [place] [facility] [address] [id number] [place] [address] Feb, [facility] [place] [facility] [address] [id number] [place] [address] Dec, [facility] [place] [facility] [address] [id number] [place] [address] November, [facility] [place] [facility] [address] [id number] [place] [address]60 Oct, [facility] [place] [facility] [address] [id number] [place] [address] Oct, [facility] [place] [facility] [address] [id number] [place] [address] Oct, [facility] [place] [facility] [address] [id number] [place] [address] Sep, [facility] [place] [facility] [address] [id number] [place] [address]- [address] 14 Sep, 2011 [facility] [place] [facility] [address] [id number] [place] [address]- [address] 15 Aug, 2011 [facility] [place] [facility] [address] [id number] [place] [address]- [address]46 Jul, [facility] [address] [id number] [place] [address] Jul, [facility] [address] [id number] [place] [address] 2496 Jun, [facility] [address] [id number] [place] [address] 3606 Jun, [facility] [address] [id number] [place] [address] May, [facility] [place] [facility] [address] [id number] [place] [address] May, [facility] [address] [id number] [place] [address] Apr, [facility] [place] [facility] [address] [id number] [place] [address]- [address] Mar, [facility] [place] [facility] [address] [id number], [place] [address] Jan, [facility] [place] [facility] [address] [id number] [place] [address] 15 Dec, 2010 [facility] [place] [facility] [address] [id number] [place] [address]- [address] 17 Jun, 2010 [facility] [place] [facility] [address] [id number] [place] [address]- [address] 13 Jun, 2010 [facility] [place] [facility] [address] [id number], [place] [address] May, [facility] [address] [facility] [id number] [place] [address] May, IMMUNIZATIONS No Known Immunizations SOCIAL HISTORY Never Assessed REASON FOR VISIT f/u PLAN OF CARE Activity Details Follow Up 3 Months Reason: VITAL SIGNS Height 65 in 2017-10-06 Weight 133.2 lbs 2017-10-06 Heart Rate 74 bpm 2017-10-06 Respiratory Rate 20 2017-10-06 BMI 22.16 kg/m2 2017-10-06 Blood pressure systolic 130 mmHg 2017-10-06 Blood pressure diastolic 70 mmHg 2017-10-06 MEDICATIONS Medication Instructions Dosage Frequency Start Date End Date Duration Status Oxybutynin Chloride ER 10 MG (Prior Auth: Rx Ref#:[id number]) 90 Active Hydrocodone-Acetaminophen 10-325 mg 1 Tablet by Oral route 4 times per day PRN pain Jan, Active Janumet 50-1,000 mg 1 Tablet by Oral route 1 time per day Feb, Not-Taking Metformin HCl 500 MG (Prior Auth: Rx Ref#:[id number]) 90 Active Carbidopa-Levodopa 25-100 MG TAKE 1 TABLET BY MOUTH THREE TIMES DAILY 10 Active Humalog 100 UNIT/ML (Prior Auth: Rx Ref#:[id number]) 25 Active Omeprazole 40 mg 1 Capsule by Oral route 1 time per day Jan, Active Magnesium 250 MG Orally twice a day 1 tablet with a meal 12h Not- Taking Potassium Citrate ER 10 MEQ (1080 MG) Orally twice a day 1 tablet with meals 12h Not-Taking Ambien CR 12.5 MG Orally Once a day 1 tablet at bedtime as needed 24h May, 30 days Not-Taking Lantus SoloStar 100 UNIT/ML (Prior Auth: Rx Ref#:[id number]) 90 Active Hydrochlorothiazide 25 MG Orally Once a day 1 tablet 24h Not- Taking Gabapentin 600 MG Orally Once a day 2 tablets 24h Jun, Not- Taking Estradiol 1 mg 1 Tablet by Oral route 1 time per day Jun, Not-Taking Ropinirole HCl 3 MG TAKE 1 TABLET BY MOUTH ONCE DAILY AT BEDTIME 30 Active Abilify 10 MG Orally Once a day 1 tablet 24h Sep, 30 days Active Trazodone HCl 50 MG Orally Once a day 1 tablet at bedtime 24h May, 90 days Not-Taking Prozac 40 MG Orally client requests brand name twice a day 1 capsule 12h November, 30 days Active Topiramate 100 MG Orally Twice a day 1 tablet 12h 90 days Active Gemfibrozil 600 mg 1 tablet by Oral route 2 times per day Sep, Not-Taking RESULTS No Results PROCEDURES Procedure Date Ordered Result Body Site [facility] VISIT ESTABLISHED PATIENT October 06, 2017 INSTRUCTIONS MEDICATIONS ADMINISTERED No Known Medications [...] 05/19/17 Hospitalization History UTI - Hospital ED [facility] 05/31/17 Hospitalization History UTI 08-06-17
--- OUTSIDE RECORDS SUMMARY | 2018-11-19 07:37 | XMS REPORT ---
Author Author RYNE CAMP Organization [facility] Address [address] [place] [address] Care Team Providers Care Donor Services Manager Name Role Phone RYNE CAMP Unavailable PROBLEMS Type Condition ICD9-CM Code [id number] Code Onset Dates Condition Status SNOMED Code Problem Bipolar disorder, current episode depressed, moderate F31.32 Active 881753219 Problem Generalized anxiety disorder F41.1 Active [id number] ALLERGIES No Information ENCOUNTERS Encounter Location Date Diagnosis [place] [id number] [place] [address] 82175- 1703 May, [place] [address] [place] [id number] [place] [address] 18025- 0806 Feb, [place] [address] [place] [id number] [place] [address] 08093- 5005 Jan, Bipolar disorder, current episode depressed, moderate F31.32 and Generalized anxiety disorder F41.1 [place] [address] [place] [id number] [address]- 1691 Jan, Bipolar disorder, current episode depressed, moderate F31.32 and Generalized anxiety disorder F41.1 [place] [address] [place] [id number] [place] [address] 96689- 2650 Jan, Bipolar disorder, current episode depressed, moderate F31.32 [place] [address] [place] [id number] [place] [address] 19398- 0195 Jan, Bipolar disorder, current episode depressed, moderate F31.32 [place] [id number] [place] [address] 78275- 3436 Jan, Bipolar disorder, current episode depressed, moderate F31.32 and Generalized anxiety disorder F41.1 [place] [address] [place] [id number] [address]- 2840 Dec, Bipolar disorder, current episode depressed, moderate F31.32 and Generalized anxiety disorder F41.1 [facility] [address] [place] [id number] [place] [address] 17489- 9666 November, Bipolar disorder, current episode depressed, moderate F31.32 and Generalized anxiety disorder F41.1 [facility] [address] [place] [id number] [place] [address] 78052- 9323 November, Bipolar disorder, current episode depressed, moderate F31.32 and Generalized anxiety disorder F41.1 [facility] [address] [place] [id number] [place] [address] 38415- 7388 Oct, Bipolar disorder, current episode depressed, moderate F31.32 and Generalized anxiety disorder F41.1 [facility] [address] [place] [id number] [place] [address] 69419- 8768 Oct, Bipolar disorder, current episode depressed, moderate F31.32 and Generalized anxiety disorder F41.1 [facility] [address] [place] [address] 56475- 4989 Oct, Bipolar disorder, current episode depressed, moderate F31.32 [facility] [address] [place] [address] 58945- 6920 Oct, Bipolar disorder, current episode depressed, moderate F31.32 and Generalized anxiety disorder F41.1 [facility] [address] [place] [address] 97986- 7420 Sep, Bipolar disorder, current episode depressed, moderate F31.32 and Generalized anxiety disorder F41.1 [facility] [address] [place] [address] 61379- 2375 Aug, Bipolar disorder, current episode depressed, moderate F31.32 [facility] [address] [address]- 9600 Aug, Bipolar disorder, current episode depressed, moderate F31.32 and Generalized anxiety disorder F41.1 [facility] [address] [place] [address] 96932- 6653 Jul, Bipolar disorder, current episode depressed, moderate F31.32 and Generalized anxiety disorder F41.1 [facility] [address] [place] [id number] [place] [address] 200793- 0380 Jul, Bipolar disorder, current episode depressed, moderate F31.32 and High risk medication use Z79.899 [place] [address] [place] [id number] [place] [address] 87911- 7822 Jul, Generalized anxiety disorder F41.1 and Bipolar disorder, current episode depressed, moderate F31.32 [place] [address] [place] [id number] [place] [address] 919453- 7522 Feb, Bipolar disorder, current episode depressed, moderate F31.32 and Generalized anxiety disorder F41.1 [place] [address] [place] [id number] [place] [address] 29834- 8292 November, Bipolar disorder, current episode depressed, moderate F31.32 and Generalized anxiety disorder F41.1 [place] [address] [place] [id number] [place] [address] 49953- 9779 Aug, Bipolar disorder, current episode depressed, moderate F31.32 and Generalized anxiety disorder F41.1 [place] [id number] [place] [address] 50307- 0180 Aug, [facility] [address] [place] [id number] [place] [address] 28070 -8977 Aug, Dysuria R30.0 and Acute cystitis with hematuria N30.01 [facility] [address] [place] [id number] [place] [address] 73722- 5786 Aug, Dysuria R30.0 [facility] [address] [place] [id number] [place] [address] 98419- 0417 Aug, Bipolar disorder, current episode depressed, moderate F31.32 and Generalized anxiety disorder F41.1 [place] [address] [place] [id number] [place] [address] [place] [address]- 6274 Jul, Bipolar disorder, current episode depressed, moderate F31.32 and Generalized anxiety disorder F41.1 [facility] [address] [address]- 8309 May, Generalized anxiety disorder F41.1 and Bipolar disorder, current episode depressed, moderate F31.32 [facility] [address] [place] [id number] [place] [address] 44526- 1623 May, Bipolar disorder, current episode depressed, moderate F31.32 and Generalized anxiety disorder F41.1 [facility] [address] [place] [address] 59548- 8610 Apr, [facility] [address] [place] [id number] [place] [address] 87579- 8393 Apr, [facility] [address] [place] [id number] [place] [address] 24203- 7599 Apr, Bipolar disorder, current episode depressed, moderate F31.32 and Generalized anxiety disorder F41.1 [facility] [address] [place] [address] 70591- 9433 Apr, [facility] [address] [place] [id number] [place] [address] 63297- 4427 Apr, Adjustment disorder with mixed anxiety and depressed mood F43.23 [facility] [address] [place] [address] 55296- 8938 Mar, Bipolar disorder, current episode depressed, moderate F31.32 and Generalized anxiety disorder F41.1 [facility] [address] [address]- 2211 Feb, Bipolar disorder, current episode depressed, moderate F31.32 and Generalized anxiety disorder F41.1 [facility] [address] [place] [id number] [address]- 7919 Feb, [facility] [address] [place] [address] 99379- 8829 Feb, Bipolar disorder, current episode depressed, moderate F31.32 and Generalized anxiety disorder F41.1 [facility] [address] [place] [id number] [address]- 6945 Feb, Generalized anxiety disorder F41.1 and Bipolar disorder, current episode depressed, moderate F31.32 [facility] [address] [place] [id number] [address]- 4845 Jan, Bipolar disorder, current episode depressed, moderate F31.32 and Generalized anxiety disorder F41.1 [facility] [address] [place] [id number] [place] [address] 02613- 3074 Jan, Bipolar disorder, current episode depressed, moderate F31.32 and Generalized anxiety disorder F41.1 [facility] [address] [place] [id number] [place] [address] 16550- 7017 Dec, Generalized anxiety disorder F41.1 and Bipolar disorder, current episode depressed, moderate F31.32 [place] [address] [place] [id number] [place] [address] 05800- 7363 Dec, Bipolar disorder, current episode depressed, moderate F31.32 and Generalized anxiety disorder F41.1 [facility] [address] [place] [address] 44798- 1516 November, Bipolar disorder, current episode depressed, moderate F31.32 and Generalized anxiety disorder F41.1 [facility] [address] [place] [id number] [address]- 7876 November, Bipolar disorder, current episode depressed, moderate F31.32 and Generalized anxiety disorder F41.1 [facility] [address] [place] [id number] [address]- 1945 November, Generalized anxiety disorder F41.1 and Bipolar disorder, 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 [facility] [address] [place] [id number] [address]- 0101 Oct, Bipolar disorder, current episode depressed, moderate F31.32 and Generalized anxiety disorder F41.1 [facility] [address] [place] [id number] [address]- 6966 13 Oct, 2015 Bipolar disorder, current episode depressed, moderate F31.32 and Generalized anxiety disorder F41.1 [facility] [address] [place] [id number] [place] [address] 06523- 9748 08 Oct, 2015 Bipolar disorder, current episode depressed, moderate F31.32 and Generalized anxiety disorder F41.1 [facility] [address] [place] [id number] [place] [address] 15466- 9155 Oct, Bipolar disorder, current episode depressed, moderate F31.32 and Generalized anxiety disorder F41.1 [facility] [address] [place] [id number] [place] [address] 97578- 9162 Sep, Bipolar disorder, current episode depressed, moderate F31.32 and Generalized anxiety disorder F41.1 [place] [address] [place] [id number] [place] [address] 48939- 0039 Sep, Bipolar disorder, current episode depressed, moderate F31.32 and Generalized anxiety disorder F41.1 [facility] [address] [place] [id number] [place] [address] 60781- 9878 Sep, Bipolar disorder, current episode depressed, moderate F31.32 and Generalized anxiety disorder F41.1 [facility] [address] [place] [id number] [address]- 1055 Sep, [facility] [address] [place] [id number] [place] [address] 40416- 9704 Sep, Generalized anxiety disorder F41.1 and Bipolar disorder, current episode depressed, severe, without psychotic features F31.4 [facility] [address] [place] [id number] [address]- 3677 Aug, Bipolar disorder, 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 and Generalized anxiety disorder F41.1 [facility] [address] [place] [id number] [address]- 3048 Aug, Bipolar disorder, 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 and Generalized anxiety disorder F41.1 [facility] [address] [place] [address] 99614- 6926 Jul, Bipolar disorder, 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 and Generalized anxiety disorder F41.1 [place] [address] [place] [id number] [place] [address] 51233- 4677 Jul, Bipolar disorder, 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 and Generalized anxiety disorder F41.1 [place] [address] [place] [id number] [place] [address] 76688- 5537 Jun, [place] [address] [place] [id number] [place] [address] 40905- 1853 Jun, Bipolar disorder, 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 and Generalized anxiety disorder F41.1 [place] [address] [place] [id number] [place] [address] 66603- 2024 Jun, Bipolar disorder, 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 and Generalized anxiety disorder F41.1 [place] [address] [place] [id number] [place] [address] 40614- 5376 Jun, Generalized anxiety disorder F41.1 and Bipolar disorder, 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 [place] [address] [place] [id number] [place] [address] 04861- 6536 May, Generalized anxiety disorder F41.1 and Bipolar disorder, current episode depressed, severe, without psychotic features F31.4 [place] [address] [place] [address] 25711- 0860 May, Bipolar disorder, 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 [place] [address] [place] [address] 10580- 4450 May, [place] [address] [place] [id number] [place] [address] 64583- 8736 May, Bipolar disorder, unspecified F31.9 ; Generalized anxiety disorder F41.1 and Insomnia G47.00 [place] [address] [place] [id number] [place] [address] 79589- 1501 May, Bipolar disorder, current episode depressed, severe, without psychotic features F31.4 and Generalized anxiety disorder F41.1 [facility] [address] [address]- 8396 May, [facility] [address] [place] [address] [id number]- 7041 Apr, Bipolar disorder, current episode depressed, severe, without psychotic features F31.4 and Generalized anxiety disorder F41.1 [facility] [address] [place] [address] 49019- 3938 Apr, Bipolar disorder, current episode depressed, severe, without psychotic features F31.4 [place] [address] [place] [address] 73038- 4712 Apr, Bipolar disorder, current episode depressed, severe, without psychotic features F31.4 and Generalized anxiety disorder F41.1 [place] [address] [place] [id number] [place] [address] 92681- 9775 Mar, Bipolar disorder, unspecified 296.80 [facility] [address] [place] [address] 46115- 1046 Mar, Bipolar disorder, unspecified 296.80 ; Generalized anxiety disorder 300.02 and Depression, major, recurrent 296.30 [facility] [address] [address]- 6768 Feb, Bipolar disorder, unspecified 296.80 [facility] [address] [address]- 0245 Jan, Bipolar disorder, unspecified 296.80 [facility] [address] [address]- 6245 Dec, Bipolar disorder, unspecified 296.80 [facility] [address] [place] [address] 501903- 6606 Dec, Bipolar disorder, unspecified 296.80 ; Major depressive disorder, recurrent episode, unspecified 296.30 and Generalized anxiety disorder 300.02 [place] [address] [place] [id number] [place] [address]- 9417 November, Bipolar disorder, unspecified 296.80 [facility] [place] [facility] [address] [id number] [place] [address]- 9413 14 Oct, 2014 [facility] [place] [facility] [address] [facility] [id number] [place] [address]- 2825 Oct, [facility] [place] [facility] [address] [facility] [id number] [place] [address]- 1688 Sep, [facility] [place] [facility] [address] [facility] [id number] [place] [address]- 3785 Sep, [facility] [place] [facility] [address] [facility] [id number] [place] [address]- 0703 Jul, [facility] [place] [facility] [address] [place] [id number] [place] [address]- 3307 Jul, [facility] [place] [facility] [address] [place] [id number] [place] [address]- 2804 Jul, [facility] [place] [facility] [address] [place] [id number] [place] [address]- 3587 Jul, [facility] [place] [facility] [address] [place] [id number] [place] [address]- 8887 Jul, [facility] [place] [facility] [address] [place] [id number] [place] [address]- 6469 Jul, [facility] [place] [facility] [address] [place] [id number] [place] [address]- 2153 Jun, [facility] [place] [facility] [address] [facility] [id number] [place] 1059 Jun, [facility] [place] [facility] [address] [place] [id number] [place] [address]- 1512 May, [facility] [place] [facility] [address] [facility] [id number] [place] [address]- 2137 May, [facility] [place] [facility] [address] [facility] [id number] [place] [address]- 6281 May, [facility] [place] [facility] [address] [id number] [place] [address]- 9835 May, [facility] [place] [facility] [address] [id number] [place] [address]- 1436 Apr, [facility] [place] [facility] [address] [id number] [place] [address]- 1079 Apr, [facility] [place] [facility] [address] [id number] [place] [address]- 9856 Mar, [facility] [place] [facility] [address] [id number] [place] [address]- 6879 Mar, [facility] [place] [facility] [address] [id number] [place] [address]- 7376 Feb, [facility] [place] [facility] [address] [id number] [place] [address]- 0415 Feb, [facility] [place] [facility] [address] [id number] [place] [address]- 7645 Feb, [facility] [place] [facility] [address] [id number] [place] [address]- 3435 Feb, [facility] [place] [facility] [address] [id number] [place] [address]- 6506 Feb, [facility] [place] [facility] [address] [id number] [address]- 1252 Feb, [facility] [place] [facility] [address] [id number] [address]- 4079 Feb, [facility] [place] [facility] [address] [id number] [place] [address]- 1695 Feb, [facility] [place] [facility] [address] [id number] [place] [address]- 6896 Feb, [facility] [place] [facility] [address] [id number] [place] [address]- 3916 Feb, [facility] [place] [facility] [address] [id number] [place] [address]- 9547 Feb, [facility] [place] [facility] [address] [id number] [place] [address]- 8952 Feb, [facility] [place] [facility] [address] [id number] [place] [address]- 4504 Feb, [facility] [place] [facility] [address] [id number] [place] [address]- 6915 Feb, [facility] [place] [facility] [address] [id number] [place] [address]- 5789 Jan, [facility] [place] [facility] [address] [id number] [place] [address]- 1184 Jan, [facility] [place] [facility] [address] [id number] [place] [address]- 1651 Jan, [facility] [place] [facility] [address] [id number] [place] [address]- 9283 Jan, [facility] [place] [facility] [address] [id number] [place] [address]- 3468 Jan, [facility] [place] [facility] [address] [id number] [place] [address]- 5486 Jan, [facility] [place] [facility] [address] [id number] [place] [address]- 5923 Jan, [facility] [place] [facility] [address] [id number] [place] [address]- 3552 Jan, [facility] [place] [facility] [address] [id number] [place] [address]- 2630 Dec, [facility] [place] [facility] [address] [id number] [place] [address]- 5180 Dec, [facility] [place] [facility] [address] [id number] [place] [address]- 7369 Dec, [facility] [place] [facility] [address] [id number] [place] [address]- 9914 Dec, [facility] [place] [facility] [address] [id number] [place] [address]- 8381 Dec, [facility] [place] [facility] [address] [id number] [place] [address]- 7908 Dec, [facility] [place] [facility] [address] [id number] [place] [address]- 6817 November, [facility] [place] [facility] [address] [id number] [place] [address]- 1545 November, [facility] [place] [facility] [address] [id number] [place] [address]- 8116 November, [facility] [place] [facility] [address] [id number] [place] [address]- 8643 November, [facility] [place] [facility] [address] [id number] [place] [address]- 0029 Oct, [facility] [place] [facility] [address] [id number] [place] [address]- 1611 Oct, [facility] [place] [facility] [address] [id number] [place] [address]- 7767 Sep, [facility] [place] [facility] [address] [id number] [place] [address]- 6204 Sep, [facility] [place] [facility] [address] [id number] [place] [address]- 0298 Sep, [facility] [place] [facility] [address] [id number] [place] [address]- 1628 Sep, [facility] [place] [facility] [address] [id number] [place] [address]- 8835 Sep, [facility] [place] [facility] [address] [id number] [place] [address]- 1467 Sep, [facility] [place] [facility] [address] [id number] [place] [address]- 5258 Sep, [facility] [place] [facility] [address] [id number] [place] [address]- 3502 Sep, [facility] [place] [facility] [address] [id number] [place] [address]- 8567 Aug, [facility] [place] [facility] [address] [id number] [place] [address]- 0736 Aug, [facility] [place] [facility] [address] [id number] [place] [address]- 5586 Aug, [facility] [place] [facility] [address] [id number] [place] [address]- 4899 Aug, [facility] [place] [facility] [address] [id number] [place] [address]- 6356 Aug, [facility] [place] [facility] [address] [id number] [place] [address]- 6640 Aug, [facility] [place] [facility] [address] [id number] [place] [address]- 4799 Aug, [facility] [place] [facility] [address] [id number] [place] [address]- 7806 Aug, [facility] [place] [facility] [address] [id number] [place] [address]- 1809 Jul, [facility] [place] [facility] [address] [id number] [place] [address]- 2499 Jul, [facility] [place] [facility] [address] [id number] [place] [address]- 3123 Jul, [facility] [place] [facility] [address] [id number] [place] [address]- 0494 Jul, [facility] [place] [facility] [address] [id number] [place] [address] Jul, [facility] [place] [facility] [address] [id number] [place] [address] Jul, [facility] [place] [facility] [address] [id number] [address] Jul, [facility] [place] [facility] [address] [id number] [place] [address] Jul, [facility] [place] [facility] [address] [id number] [place] [address] Jun, [facility] [place] [facility] [address] [id number] [place] [address] Jun, [facility] [place] [facility] [address] [id number] [place] [address] Jun, [facility] [address] [id number] [place] [address] Jun, [facility] [place] [facility] [address] [id number] [place] [address] May, [facility] [address] [id number] [place] [address] May, [facility] [address] [id number] [place] [address] May, [facility] [place] [facility] [address] [id number] [place] [address] May, [facility] [place] [facility] [address] [id number] [place] [address] May, [facility] [place] [facility] [address] [id number] [place] [address] May, [facility] [place] [facility] [address] [id number] [address] May, [facility] [place] [facility] [address] [id number] [place] [address] May, [facility] [place] [facility] [address] [id number] [place] [address] Apr, [facility] [place] [facility] [address] [id number] [place] [address] Apr, [facility] [place] [facility] [address] [id number] [place] [address] Apr, [facility] [place] [facility] [address] [id number] [place] [address] Apr, [facility] [place] [facility] [address] [id number] [place] [address] Apr, [facility] [facility] [address] [id number] [place] [address] Apr, [facility] [place] [facility] [address] [id number] [place] [address] Apr, [facility] [place] [facility] [address] [id number] [place] [address] Apr, [facility] [place] [facility] [address] [id number] [place] [address] Apr, [facility] [place] [facility] [address] [id number] [place] [address] Apr, [facility] [place] [facility] [address] [id number] [place] [address] Apr, [facility] [place] [facility] [address] [id number] [place] [address] Mar, [facility] [place] [facility] [address] [id number] [place] [address] Feb, [facility] [address] [id number] [address] Feb, [facility] [place] [facility] [address] [id number] [place] [address] Feb, [facility] [place] [facility] [address] [id number] [place] [address] Jan, [facility] [facility] [address] [id number] [place] [address] Dec, [facility] [place] [facility] [address] [id number] [place] [address] Dec, [facility] [place] [facility] [address] [id number] [place] [address] 14 Dec, 2012 [facility] [address] [id number] [place] [address] November, [facility] [address] [id number] [place] [address] November, [facility] [address] [id number] [place] [address] November, [facility] [address] [id number] [place] [address] Oct, [facility] [address] [id number] [place] [address] Oct, [facility] [address] [id number] [place] [address] Oct, [facility] [address] [id number] [place] [address] Sep, [facility] [address] [id number] [place] [address] Sep, [facility] [address] [id number] [place] [address] Sep, [facility] [address] [id number] [place] [address] Aug, [facility] [address] [id number] [place] [address] Jul, [facility] [address] [id number] [place] [address] Jul, [facility] [address] [id number] [place] [address] Jun, [facility] [address] [id number] [place] [address] Jun, [facility] [address] [id number] [place] [address] May, [facility] [address] [id number] [place] [address]240 May, [facility] [place] [facility] [address] [id number] [place] [address] May, [facility] [address] [id number] [place] [address] May, [facility] [address] [id number] [place] [address] May, [facility] [address] [id number] [place] [address] May, [facility] [address] [id number] [place] [address] Apr, [facility] [address] [id number] [place] [address] Feb, [facility] [facility] [address] [id number] [address] Dec, [facility] [address] [id number] [place] [address] November, [facility] [address] [id number] [place] [address] Oct, [facility] [facility] [address] [id number] [place] [address] Oct, [facility] [facility] [address] [id number] [place] [address] Oct, [facility] [facility] [address] [id number] [place] [address] Sep, [facility] [address] [id number] [place] [address] 14 Sep, 2011 [facility] [address] [facility] [id number] [place] [address] 15 Aug, 2011 [facility] [id number] [address] Jul, [facility] [id number] [address] Jul, [facility] [id number] [address] [address] Jun, [facility] [id number] [address] Jun, [facility] [id number] [address] [address] May, [facility] [id number] [place] [address]- [address] May, [facility] [id number] [address] Apr, [facility] [address]65[address] [address] Mar, [facility] [id number] [address] Jan, [facility] [address]65[address] [address] Dec, [facility] [address]65[address] [address] Jun, [facility] [address]65[address] [address] Jun, [facility] [address]65[address] [address] May, [facility] [id number] [address] May, IMMUNIZATIONS No Known Immunizations SOCIAL HISTORY Never Assessed REASON FOR VISIT BH f/u, Depression. PLAN OF CARE Activity Details Follow Up 1 Week Reason:depression VITAL SIGNS MEDICATIONS Unknown Medications RESULTS No Results PROCEDURES Procedure Date Ordered Result Body Site [facility] VISIT MENTAL HEALTH ESTAB PT October 12, 2017 Psychotherapy, patient &/family, 30 minutes, established patient October 12, 2017 INSTRUCTIONS MEDICATIONS ADMINISTERED No Known Medications [...] 05/19/17 Hospitalization History UTI - Hospital ED [facility] 05/31/17 Hospitalization History UTI 08-06-17
[2018-11-19] MEDS ORDERED: D5 LR IV SOLUTION 1,000 ML IV ONE (07:38)
--- OUTSIDE RECORDS SUMMARY | 2018-11-19 07:38 | XMS REPORT ---
Author Author RYNE CAMP Organization [facility] Address [address] [place] [address] Care Team Providers Care Senior Courtroom Clerk Name Role Phone RYNE CAMP Unavailable PROBLEMS Type Condition ICD9-CM Code [id number] Code Onset Dates Condition Status SNOMED Code Problem Bipolar disorder, current episode depressed, moderate F31.32 Active 519674829 Problem Generalized anxiety disorder F41.1 Active [id number] ALLERGIES No Information ENCOUNTERS Encounter Location Date Diagnosis [place] [id number] [address] May, [place] [id number] [place] [address] 98107- 0895 Jan, [place] [id number] [place] [address] 73493- 2208 Jan, Bipolar disorder, current episode depressed, moderate F31.32 and Generalized anxiety disorder F41.1 [place] [address] [address] Jan, Bipolar disorder, current episode depressed, moderate F31.32 [place] [address] [address] 8[address] Jan, Bipolar disorder, current episode depressed, moderate F31.32 [place] [address] [address] 5765 Jan, Bipolar disorder, current episode depressed, moderate F31.32 and Generalized anxiety disorder F41.1 [facility] [address] [address] Dec, Bipolar disorder, current episode depressed, moderate F31.32 and Generalized anxiety disorder F41.1 [place] [address] [address] 1406 November, Bipolar disorder, current episode depressed, moderate F31.32 and Generalized anxiety disorder F41.1 [facility] [id number] [place] [address] 50462- 3711 November, Bipolar disorder, current episode depressed, moderate F31.32 and Generalized anxiety disorder F41.1 [facility] [id number] [place] [address] 47943- 6935 Oct, Bipolar disorder, current episode depressed, moderate F31.32 and Generalized anxiety disorder F41.1 [facility] [id number] [place] [address] 15281- 4539 Oct, Bipolar disorder, current episode depressed, moderate F31.32 and Generalized anxiety disorder F41.1 [facility] [id number] [place] [address] 65517- 0359 Oct, Bipolar disorder, current episode depressed, moderate F31.32 [facility] [id number] [place] [address] 55755- 2364 Oct, Bipolar disorder, current episode depressed, moderate F31.32 and Generalized anxiety disorder F41.1 [facility] [id number] [place] [address] 14260- 7146 Sep, Bipolar disorder, current episode depressed, moderate F31.32 and Generalized anxiety disorder F41.1 [facility] [id number] [place] [address] 02146- 9743 Aug, Bipolar disorder, current episode depressed, moderate F31.32 [facility] [id number] [place] [address] 41051- 4980 Aug, Bipolar disorder, current episode depressed, moderate F31.32 and Generalized anxiety disorder F41.1 [facility] [address] [address]- 5066 Jul, Bipolar disorder, current episode depressed, moderate F31.32 and Generalized anxiety disorder F41.1 [facility] [id number] [place] [address] 39799- 7467 Jul, Bipolar disorder, current episode depressed, moderate F31.32 and High risk medication use Z79.899 [place] [id number] [place] [address] 11584- 4214 Jul, Generalized anxiety disorder F41.1 and Bipolar disorder, current episode depressed, moderate F31.32 [facility] [id number] [place] [address] 62221- 6674 Feb, Bipolar disorder, current episode depressed, moderate F31.32 and Generalized anxiety disorder F41.1 [place] [id number] [place] [address] 377923- 6570 November, Bipolar disorder, current episode depressed, moderate F31.32 and Generalized anxiety disorder F41.1 [place] [id number] [place] [address] 95240- 0157 Aug, Bipolar disorder, current episode depressed, moderate F31.32 and Generalized anxiety disorder F41.1 [place] [id number] [place] [address] 55811- 0767 Aug, [facility] [id number] [place] [address] 28072 -2218 Aug, Dysuria R30.0 and Acute cystitis with hematuria N30.01 [facility] [id number] [place] [address] 04164- 7213 Aug, Dysuria R30.0 [facility] [id number] [place] [address] 81262- 4133 Aug, Bipolar disorder, current episode depressed, moderate F31.32 and Generalized anxiety disorder F41.1 [place] [id number] [place] [address] 56550- 4963 Jul, Bipolar disorder, current episode depressed, moderate F31.32 and Generalized anxiety disorder F41.1 [facility] [id number] [place] [address] 00070- 9046 May, Generalized anxiety disorder F41.1 and Bipolar disorder, current episode depressed, moderate F31.32 [facility] [id number] [place] [address] 55244- 4850 May, Bipolar disorder, current episode depressed, moderate F31.32 and Generalized anxiety disorder F41.1 [facility] [id number] [place] [address] 68156- 9883 Apr, [facility] [id number] [place] [address] 50197- 8923 Apr, [facility] [id number] [place] [address] 57669- 1144 Apr, Bipolar disorder, current episode depressed, moderate F31.32 and Generalized anxiety disorder F41.1 [place] [id number] [place] [address] 14881- 3372 Apr, [facility] [id number] [place] [address] 59892- 6916 Apr, Adjustment disorder with mixed anxiety and depressed mood F43.23 [place] [id number] [place] [address] 42517- 2005 Mar, Bipolar disorder, current episode depressed, moderate F31.32 and Generalized anxiety disorder F41.1 [place] [id number] [place] [address] 51294- 7752 Feb, Bipolar disorder, current episode depressed, moderate F31.32 and Generalized anxiety disorder F41.1 [facility] [id number] [place] [address] 21854- 0145 Feb, [facility] [id number] [place] [address] 09403- 8736 Feb, Bipolar disorder, current episode depressed, moderate F31.32 and Generalized anxiety disorder F41.1 [place] [id number] [place] [address] 86413- 0432 Feb, Generalized anxiety disorder F41.1 and Bipolar disorder, current episode depressed, moderate F31.32 [facility] [address] [id number] [address]- 4538 Jan, Bipolar disorder, current episode depressed, moderate F31.32 and Generalized anxiety disorder F41.1 [facility] [id number] [address]- 1025 Jan, Bipolar disorder, current episode depressed, moderate F31.32 and Generalized anxiety disorder F41.1 [facility] [address] [facility] [id number] [place] [address] 84845- 9915 Dec, Generalized anxiety disorder F41.1 and Bipolar disorder, current episode depressed, moderate F31.32 [facility] [address] [id number] [place] [address] 83706- 6176 Dec, Bipolar disorder, current episode depressed, moderate F31.32 and Generalized anxiety disorder F41.1 [facility] [id number] [place] [address] 48281- 7984 November, Bipolar disorder, current episode depressed, moderate F31.32 and Generalized anxiety disorder F41.1 [facility] [address] [id number] [address]- 0707 November, Bipolar disorder, current episode depressed, moderate F31.32 and Generalized anxiety disorder F41.1 [facility] [address] [id number] [address]- 8630 November, Generalized anxiety disorder F41.1 and Bipolar disorder, 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 [facility] [address] [id number] [address]- 2799 Oct, Bipolar disorder, current episode depressed, moderate F31.32 and Generalized anxiety disorder F41.1 [facility] [address] [id number] [address] 1955 Oct, Bipolar disorder, current episode depressed, moderate F31.32 and Generalized anxiety disorder F41.1 [facility] [address] [address]- 1502 Oct, Bipolar disorder, current episode depressed, moderate F31.32 and Generalized anxiety disorder F41.1 [facility] [address] [place] [address] 03776- 2256 Oct, Bipolar disorder, current episode depressed, moderate F31.32 and Generalized anxiety disorder F41.1 [facility] [id number] [place] [address] 58342- 4896 Sep, Bipolar disorder, current episode depressed, moderate F31.32 and Generalized anxiety disorder F41.1 [facility] [address] [address] [id number] [place] [address] 93905- 3052 Sep, Bipolar disorder, current episode depressed, moderate F31.32 and Generalized anxiety disorder F41.1 [facility] [id number] [place] [address] 85291- 4953 Sep, Bipolar disorder, current episode depressed, moderate F31.32 and Generalized anxiety disorder F41.1 [facility] [address] [place] [address] 04269- 1694 Sep, [facility] [id number] [place] [address] 13038- 0076 Sep, Generalized anxiety disorder F41.1 and Bipolar disorder, current episode depressed, severe, without psychotic features F31.4 [facility] [address] [place] [address] 86781- 8120 Aug, Bipolar disorder, 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 and Generalized anxiety disorder F41.1 [facility] [id number] [place] [address] 27322- 6976 Aug, Bipolar disorder, 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 and Generalized anxiety disorder F41.1 [facility] [address] [address]- 6852 Jul, Bipolar disorder, 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 and Generalized anxiety disorder F41.1 [facility] [address] [place] [address] 35646- 6041 Jul, Bipolar disorder, 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 and Generalized anxiety disorder F41.1 [facility] [id number] [place] [address] 47357- 2840 Jun, [facility] [id number] [place] [address] 47987- 9653 Jun, Bipolar disorder, 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 and Generalized anxiety disorder F41.1 [place] [id number] [place] [address] 20706- 9400 Jun, Bipolar disorder, 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 and Generalized anxiety disorder F41.1 [place] [id number] [place] [address] 63979- 9132 Jun, Generalized anxiety disorder F41.1 and Bipolar disorder, 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 [place] [id number] [place] [address] 64848- 3906 May, Generalized anxiety disorder F41.1 and Bipolar disorder, current episode depressed, severe, without psychotic features F31.4 [place] [id number] [place] [address] 71540- 0550 May, Bipolar disorder, 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 [place] [id number] [place] [address] 04377- 0107 May, [place] [id number] [place] [address] 31739- 8032 May, Bipolar disorder, unspecified F31.9 ; Generalized anxiety disorder F41.1 and Insomnia G47.00 [place] [id number] [place] [address] 27713- 3740 May, Bipolar disorder, current episode depressed, severe, without psychotic features F31.4 and Generalized anxiety disorder F41.1 [place] [id number] [place] [address] 64940- 9534 May, [facility] [address] [address]- 0626 Apr, Bipolar disorder, current episode depressed, severe, without psychotic features F31.4 and Generalized anxiety disorder F41.1 [facility] [address] [address]- 4235 Apr, Bipolar disorder, current episode depressed, severe, without psychotic features F31.4 [facility] [id number] [address]- 5520 Apr, Bipolar disorder, current episode depressed, severe, without psychotic features F31.4 and Generalized anxiety disorder F41.1 [place] [address] [address]- 4647 Mar, Bipolar disorder, unspecified 296.80 [place] [address] [address]- 0637 Mar, Bipolar disorder, unspecified 296.80 ; Generalized anxiety disorder 300.02 and Depression, major, recurrent 296.30 [facility] [address] [address]- 1991 Feb, Bipolar disorder, unspecified 296.80 [place] [address] [address]- 3093 Jan, Bipolar disorder, unspecified 296.80 [facility] [address] [address]- 0473 Dec, Bipolar disorder, unspecified 296.80 [facility] [address]- 9434 Dec, Bipolar disorder, unspecified 296.80 ; Major depressive disorder, recurrent episode, unspecified 296.30 and Generalized anxiety disorder 300.02 [facility] [address] [address] 1186 November, Bipolar disorder, unspecified 296.80 [facility] [address] [address]- 8528 14 Oct, 2014 [facility] [place] [facility] [address] [id number] [place] [address]- 4558 Oct, [facility] [place] [facility] [address] [id number] [place] [address]- 4095 Sep, [facility] [place] [facility] [address] [facility] [id number] [place] [address]- 7164 Sep, [facility] [place] [facility] [address] [id number] [place] [address]- 3401 Jul, [facility] [place] [facility] [address] [id number] [place] [address]- 6979 Jul, [facility] [place] [facility] [address] [id number] [place] [address]- 6718 Jul, [facility] [place] [facility] [address] [facility] [id number] [place] [address]- 6935 Jul, [facility] [place] [facility] [address] [id number] [address]- 9158 Jul, [facility] [place] [facility] [address] [id number] [address]- 6587 Jul, [facility] [place] [facility] [address] [facility] [id number] [address]- 5734 Jun, [facility] [place] [facility] [address] [id number] [address]- 6075 Jun, [facility] [place] [facility] [address] [id number] [address]- 1521 May, [facility] [place] [facility] [address] [id number] [place] [address]- 6786 May, [facility] [place] [facility] [address] [id number] [address]- 0726 May, [facility] [place] [facility] [address] [id number] [address]- 2764 May, [facility] [place] [facility] [address] [id number] [place] [address]- 8218 Apr, [facility] [place] [facility] [address] [id number] [place] [address]- 6808 Apr, [facility] [place] [facility] [address] [id number] [place] [address]- 2535 Mar, [facility] [place] [facility] [address] [id number] [place] [address]- 9397 Mar, [facility] [place] [facility] [address] [id number] [place] [address]- 2423 Feb, [facility] [place] [facility] [address] [id number] [place] [address]- 0514 Feb, [facility] [place] [facility] [address] [id number] [place] [address]- 5916 Feb, [facility] [place] [facility] [address] [id number] [place] [address]- 3650 Feb, [facility] [place] [facility] [address] [id number] [place] [address]- 7602 Feb, [facility] [place] [facility] [address] [id number] [place] [address]- 8074 Feb, [facility] [place] [facility] [address] [id number] [place] [address]- 2071 Feb, [facility] [place] [facility] [address] [id number] [place] [address]- 2330 Feb, [facility] [place] [facility] [address] [id number] [place] [address]- 7971 Feb, [facility] [place] [facility] [address] [id number] [place] [address]- 3931 Feb, [facility] [place] [facility] [address] [id number] [place] [address]- 6881 Feb, [facility] [place] [facility] [address] [id number] [place] [address]- 6368 Feb, [facility] [place] [facility] [address] [id number] [place] [address]- 2263 Feb, [facility] [place] [facility] [address] [id number] [place] [address]- 2500 Feb, [facility] [place] [facility] [address] [id number] [place] [address]- 4327 Jan, [facility] [place] [facility] [address] [id number] [place] [address]- 5449 Jan, [facility] [place] [facility] [address] [id number] [place] [address]- 5853 Jan, [facility] [place] [facility] [address] [id number] [place] [address]- 6482 Jan, [facility] [place] [facility] [address] [id number] [place] [address]- 2781 Jan, [facility] [place] [facility] [address] [id number] [place] [address]- 6291 Jan, [facility] [place] [facility] [address] [id number] [place] [address]- 8682 Jan, [facility] [place] [facility] [address] [id number] [place] [address]- 1432 Jan, [facility] [place] [facility] [address] [id number] [place] [address]- 2818 Dec, [facility] [place] [facility] [address] [id number] [place] [address]- 3067 Dec, [facility] [place] [facility] [address] [id number] [place] [address]- 8661 Dec, [facility] [place] [facility] [address] [id number] [place] [address]- 5402 Dec, [facility] [place] [facility] [address] [id number] [place] [address]- 7089 Dec, [facility] [place] [facility] [address] [id number] [place] [address]- 2692 Dec, [facility] [place] [facility] [address] [id number] [place] [address]- 7437 November, [facility] [place] [facility] [address] [id number] [place] [address]- 3715 November, [facility] [place] [facility] [address] [id number] [place] [address]- 1502 November, [facility] [place] [facility] [address] [id number] [place] [address]- 2604 November, [facility] [place] [facility] [address] [id number] [place] [address]- 7604 Oct, [facility] [place] [facility] [address] [id number] [place] [address]- 3976 Oct, [facility] [place] [facility] [address] [id number] [place] [address]- 3505 Sep, [facility] [place] [facility] [address] [id number] [place] [address]- 2720 Sep, [facility] [place] [facility] [address] [id number] [place] [address]- 4655 Sep, [facility] [place] [facility] [address] [id number] [place] [address]- 1930 Sep, [facility] [place] [facility] [address] [id number] [place] [address]- 5144 Sep, [facility] [place] [facility] [address] [id number] [place] [address]- 0628 Sep, [facility] [place] [facility] [address] [id number] [place] [address]- 7311 Sep, [facility] [place] [facility] [address] [id number] [place] 1107 Sep, [facility] [place] [facility] [address] [id number] [place] [address]- 2094 Aug, [facility] [place] [facility] [address] [id number] [place] [address]- 6373 Aug, [facility] [place] [facility] [address] [id number] [place] [address]- 5013 Aug, [facility] [place] [facility] [address] [id number] [place] [address]- 7466 Aug, [facility] [place] [facility] [address] [id number] [place] [address]- 4631 Aug, [facility] [place] [facility] [address] [id number] [place] [address]- 3765 Aug, [facility] [place] [facility] [address] [id number] [place] [address]- 6445 Aug, [facility] [place] [facility] [address] [id number] [place] [address]- 7896 Aug, [facility] [place] [facility] [address] [id number] [place] [address]- 8397 Jul, [facility] [place] [facility] [address] [id number] [place] [address]- 0288 Jul, [facility] [place] [facility] [address] [id number] [place] [address]- 2844 Jul, [facility] [place] [facility] [address] [id number] [place] [address]- 2635 Jul, [facility] [place] [facility] [address] [id number] [address]- 0608 Jul, [facility] [place] [facility] [address] [id number] [place] [address]- 2223 Jul, [facility] [place] [facility] [address] [id number] [place] [address]- 7517 Jul, [facility] [place] [facility] [address] [id number] [place] [address]- 5099 Jul, [facility] [place] [facility] [address] [id number] [address] Jun, [facility] [place] [facility] [address] [id number] [place] [address] Jun, [facility] [place] [facility] [address] [id number] Jun, [facility] [place] [facility] [address] [id number] [place] [address] Jun, [facility] [place] [facility] [address] [id number] [address] May, [facility] [place] [facility] [address] [id number] [place] [address] May, [facility] [place] [facility] [address] [id number] [place] [address] May, [facility] [place] [facility] [address] [id number] [address] May, [facility] [place] [facility] [address] [id number] [address] May, [facility] [place] [facility] [address] [id number] [address] May, [facility] [place] [facility] [address] [id number] [address] May, [facility] [place] [facility] [address] [id number] [address] May, [facility] [place] [facility] [address] [id number] [address] Apr, [facility] [place] [facility] [address] [id number][place] [address] Apr, [facility] [place] [facility] [address] [id number] [address] Apr, [facility] [place] [facility] [address] [id number] [address] Apr, [facility] [place] [facility] [address] [id number] [place] [address] Apr, [facility] [place] [facility] [address] [id number] [place] [address] Apr, [facility] [place] [facility] [address] [id number] [place] [address] Apr, [facility] [place] [facility] [address] [id number] [place] [address] Apr, [facility] [place] [facility] [address] [id number] [place] [address] Apr, [facility] [place] [facility] [address] [id number] [place] [address] Apr, [facility] [place] [facility] [address] [id number] [place] [address] Apr, [facility] [place] [facility] [address] [id number] [place] [address] Mar, [facility] [place] [facility] [address] [id number] [place] [address] Feb, [facility] [place] [facility] [address] [id number] [place] [address] Feb, [facility] [place] [facility] [address] [id number] [place] [address] Feb, [facility] [place] [facility] [address] [id number] [place] [address] Jan, [facility] [place] [facility] [address] [id number] [place] [address] Dec, [facility] [place] [facility] [address] [id number] [place] [address] Dec, [facility] [place] [facility] [address] [id number] [place] [address] Dec, [facility] [place] [facility] [address] [id number] [place] [address] November, [facility] [address] [id number] [place] [address] November, [facility] [address] [id number] [place] [address] November, [facility] [address] [id number] [place] [address] Oct, [facility] [place] [facility] [address] [id number] [place] [address] Oct, [facility] [address] [id number] [place] [address] Oct, [facility] [address] [id number] [place] [address] Sep, [facility] [address] [id number] [place] [address] Sep, [facility] [address] [id number] [place] [address] Sep, [facility] [address] [id number] [place] [address] Aug, [facility] [address] [id number] [place] [address] Jul, [facility] [address] [id number] [place] [address] Jul, [facility] [place] [facility] [address] [id number] [place] [address] Jun, [facility] [place] [facility] [address] [id number] [place] [address] Jun, [facility] [place] [facility] [address] [id number] [place] [address] May, [facility] [place] [facility] [address] [id number] [place] [address] May, [facility] [place] [facility] [address] [id number] [place] [address] May, [facility] [place] [facility] [address] [id number] [place] [address] May, [facility] [place] [facility] [address] [id number] [place] [address] May, [facility] [place] [facility] [address] [id number] [place] [address] May, [facility] [place] [facility] [address] [id number] [place] [address] Apr, [facility] [place] [facility] [address] [id number] [place] [address] Feb, [facility] [place] [facility] [address] [id number] [place] [address] Dec, [facility] [place] [facility] [address] [id number] [place] [address] November, [facility] [place] [facility] [address] [id number] [place] [address] Oct, [facility] [place] [facility] [address] [id number] [place] [address] Oct, [facility] [place] [facility] [address] [facility] [id number] [place] [address] Oct, [facility] [place] [facility] [address] [id number] [place] [address] 2014 Sep, [facility] [place] [facility] [address] [id number] [place] [address] Sep, [facility] [place] [facility] [address] [id number] [place] [address] 15 Aug, 2011 [facility] [place] [facility] [address] [id number] [place] [address] Jul, [facility] [place] [facility] [address] [id number] [place] [address] Jul, [facility] [id number] [address] Jun, [facility] [id number] [address] Jun, [facility] [id number] [address] May, [facility] [id number] [place] [address] May, [facility] [id number] [place] [address] Apr, [facility] [id number] [place] [address]- [address] Mar, [facility] [id number] [place] [address] Jan, [facility] [id number] [place] [address] Dec, [facility] [id number] [place] [address]- [address] Jun, [facility] [id number] [place] [address]- [address] Jun, [facility] [id number] [address] May, [facility] [id number] [address] May, IMMUNIZATIONS No Known Immunizations SOCIAL HISTORY Never Assessed REASON FOR VISIT BH f/u, Depression. PLAN OF CARE Activity Details Follow Up 1 Week Reason:depression VITAL SIGNS MEDICATIONS Unknown Medications RESULTS No Results PROCEDURES Procedure Date Ordered Result Body Site [facility] VISIT MENTAL HEALTH ESTAB PT October 05, 2017 Psychotherapy, patient &/family, 30 minutes, established patient October 05, 2017 INSTRUCTIONS MEDICATIONS ADMINISTERED No Known Medications MEDICAL (GENERAL) HISTORY Type Description Date Medical History parkinsons disease dx 2017-neurologist Dr. Orr Medical History diabetes type II Medical History hx HTN Medical History hx hypercholestorolemia Medical History salmonella Surgical History Kidney Stent 02/2015 Surgical History Bladder prolapse 01/2016 Surgical History hysterectomy Hospitalization History Septecimic/Bladder infection/Kidney Stones/Enlarged Gallbladder 02/2015 Hospitalization History Surgery Hospitalization History hypokalemia, UTI, weakness, and hypovolemia - Hospital Inpatient Discharge 05/19/17 Hospitalization History UTI - Hospital ED [facility] 05/31/17 Hospitalization History UTI 08-06-17
--- OUTSIDE RECORDS SUMMARY | 2018-11-19 07:39 | XMS REPORT ---
Author Author RYNE CAMP Organization [facility] Address [address] [place] [address] Care Team Providers Care Human Resources Compensation Analyst Name Role Phone RYNE CAMP Unavailable PROBLEMS Type Condition ICD9-CM Code WYE02-PT Code Onset Dates Condition Status SNOMED Code Problem Bipolar disorder, current episode depressed, moderate F31.32 Active 542308728 Problem Generalized anxiety disorder F41.1 Active [id number] ALLERGIES No Information ENCOUNTERS Encounter Location Date Diagnosis [place] [id number] [address] May, [place] [address] [place] [id number] [place] [address] 30074- 2126 Jan, [facility] [id number] [place] [address] 71571- 9058 Jan, Bipolar disorder, current episode depressed, moderate F31.32 and Generalized anxiety disorder F41.1 [place] [address], [place] [address] 9[address] Jan, Bipolar disorder, current episode depressed, moderate F31.32 [place] [address], [place] [address] 1205 Jan, Bipolar disorder, current episode depressed, moderate F31.32 [place] [address], [place] [address] 2082 Jan, Bipolar disorder, current episode depressed, moderate F31.32 and Generalized anxiety disorder F41.1 [facility] [address], [place] [address]- 0753 Dec, Bipolar disorder, current episode depressed, moderate F31.32 and Generalized anxiety disorder F41.1 [place] [address] [place] [address] [place] [address] November, Bipolar disorder, current episode depressed, moderate F31.32 and Generalized anxiety disorder F41.1 [facility] [id number] [place] [address] 05564- 0538 November, Bipolar disorder, current episode depressed, moderate F31.32 and Generalized anxiety disorder F41.1 [facility] [id number] [place] [address] 66589- 0096 Oct, Bipolar disorder, current episode depressed, moderate F31.32 and Generalized anxiety disorder F41.1 [facility] [address] [place] [address] [id number] [place] [address] 40419- 4633 Oct, Bipolar disorder, current episode depressed, moderate F31.32 and Generalized anxiety disorder F41.1 [facility] [address] [id number] [place] [address] 26458- 1028 Oct, Bipolar disorder, current episode depressed, moderate F31.32 [facility] [id number] [place] [address] 58098- 1150 Oct, Bipolar disorder, current episode depressed, moderate F31.32 and Generalized anxiety disorder F41.1 [facility] [id number] [place] [address] 39742- 8941 Sep, Bipolar disorder, current episode depressed, moderate F31.32 and Generalized anxiety disorder F41.1 [facility] [id number] [place] [address] 19392- 5418 Aug, Bipolar disorder, current episode depressed, moderate F31.32 [facility] [id number] [place] [address] 19937- 9421 Aug, Bipolar disorder, current episode depressed, moderate F31.32 and Generalized anxiety disorder F41.1 [facility] [address], [place] [address]- 5865 Jul, Bipolar disorder, current episode depressed, moderate F31.32 and Generalized anxiety disorder F41.1 [facility] [id number] [place] [address] 77238- 2846 Jul, Bipolar disorder, current episode depressed, moderate F31.32 and High risk medication use Z79.899 [place] [address] [place] [address] [id number] [place] [address] 94011- 8924 Jul, Generalized anxiety disorder F41.1 and Bipolar disorder, current episode depressed, moderate F31.32 [facility] [address] [place] [id number] [place] [address] 01686- 5945 Feb, Bipolar disorder, current episode depressed, moderate F31.32 and Generalized anxiety disorder F41.1 [place] [address] [place] [address] [id number] [place] [address] 769646- 3281 November, Bipolar disorder, current episode depressed, moderate F31.32 and Generalized anxiety disorder F41.1 [place] [address] [place] [address] [id number] [place] [address] 05178- 7169 Aug, Bipolar disorder, current episode depressed, moderate F31.32 and Generalized anxiety disorder F41.1 [place] [address] [place] [id number] [place] [address] 28232- 9152 Aug, [facility] [id number] [place] [address] 20409 -8711 Aug, Dysuria R30.0 and Acute cystitis with hematuria N30.01 [facility] [id number] [place] [address] 68693- 5419 Aug, Dysuria R30.0 [facility] [address] [place] [id number] [place] [address] 00053- 1751 Aug, Bipolar disorder, current episode depressed, moderate F31.32 and Generalized anxiety disorder F41.1 [place] [address] [place] [address] [id number] [place] [address] 80034- 4294 Jul, Bipolar disorder, current episode depressed, moderate F31.32 and Generalized anxiety disorder F41.1 [facility] [address] [place] [id number] [place] [address] 95662- 0054 May, Generalized anxiety disorder F41.1 and Bipolar disorder, current episode depressed, moderate F31.32 [facility] [address] [place] [id number] [place] [address] 66804- 7046 May, Bipolar disorder, current episode depressed, moderate F31.32 and Generalized anxiety disorder F41.1 [facility] [address] [place] [id number] [place] [address] 57649- 0230 Apr, [facility] [address] [place] [address] [id number] [place] [address] 47081- 2866 Apr, [facility] [address] [place] [id number] [place] [address] 12233- 8495 Apr, Bipolar disorder, current episode depressed, moderate F31.32 and Generalized anxiety disorder F41.1 [place] [address] [place] [id number] [place] [address] 57107- 1633 Apr, [facility] [address] [place] [address] [id number] [place] [address] 80169- 4117 Apr, Adjustment disorder with mixed anxiety and depressed mood F43.23 [place] [address] [place] [id number] [place] [address] 85541- 2283 Mar, Bipolar disorder, current episode depressed, moderate F31.32 and Generalized anxiety disorder F41.1 [place] [id number] [place] [address] 08169- 2012 Feb, Bipolar disorder, current episode depressed, moderate F31.32 and Generalized anxiety disorder F41.1 [facility] [id number] [place] [address] 64445- 4619 Feb, [facility] [address] [id number] [place] [address] 78041- 1089 Feb, Bipolar disorder, current episode depressed, moderate F31.32 and Generalized anxiety disorder F41.1 [place] [address] [place] [id number] [place] [address] 13438- 3941 Feb, Generalized anxiety disorder F41.1 and Bipolar disorder, current episode depressed, moderate F31.32 [facility] [address] [place] [id number] [address]- 4564 Jan, Bipolar disorder, current episode depressed, moderate F31.32 and Generalized anxiety disorder F41.1 [facility] [address] [id number] [address]- 0095 Jan, Bipolar disorder, current episode depressed, moderate F31.32 and Generalized anxiety disorder F41.1 [facility] [address] [facility] [id number] [place] [address] 04521- 6986 Dec, Generalized anxiety disorder F41.1 and Bipolar disorder, current episode depressed, moderate F31.32 [facility] [address] [place] [id number] [place] [address] 85326- 7799 Dec, Bipolar disorder, current episode depressed, moderate F31.32 and Generalized anxiety disorder F41.1 [facility] [address] [place] [id number] [place] [address] 23470- 7824 November, Bipolar disorder, current episode depressed, moderate F31.32 and Generalized anxiety disorder F41.1 [facility] [address] [id number] [address]- 7382 November, Bipolar disorder, current episode depressed, moderate F31.32 and Generalized anxiety disorder F41.1 [facility] [address] [id number] [address]- 2911 November, Generalized anxiety disorder F41.1 and Bipolar disorder, 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 [facility] [address] [id number], [place] [address]- 1150 Oct, Bipolar disorder, current episode depressed, moderate F31.32 and Generalized anxiety disorder F41.1 [facility] [address] [place] [id number] [address]- 3909 Oct, Bipolar disorder, current episode depressed, moderate F31.32 and Generalized anxiety disorder F41.1 [facility] [address], [place] [address]- 6258 Oct, Bipolar disorder, current episode depressed, moderate F31.32 and Generalized anxiety disorder F41.1 [facility] [id number] [place] [address] 74210- 9786 Oct, Bipolar disorder, current episode depressed, moderate F31.32 and Generalized anxiety disorder F41.1 [facility] [id number] [place] [address] 37440- 2404 Sep, Bipolar disorder, current episode depressed, moderate F31.32 and Generalized anxiety disorder F41.1 [facility] [address] [id number] [place] [address] 78292- 3856 Sep, Bipolar disorder, current episode depressed, moderate F31.32 and Generalized anxiety disorder F41.1 [facility] [id number] [place] [address] 33960- 0623 Sep, Bipolar disorder, current episode depressed, moderate F31.32 and Generalized anxiety disorder F41.1 [facility] [id number] [place] [address] 49056- 3440 Sep, [facility] [address] [id number] [place] [address] 11209- 2400 Sep, Generalized anxiety disorder F41.1 and Bipolar disorder, current episode depressed, severe, without psychotic features F31.4 [facility] [id number] [place] [address] 16753- 3028 Aug, Bipolar disorder, 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 and Generalized anxiety disorder F41.1 [facility] [id number] [place] [address] 65785- 4712 Aug, Bipolar disorder, 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 and Generalized anxiety disorder F41.1 [facility] [address], [place] [address]- 0813 Jul, Bipolar disorder, 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 and Generalized anxiety disorder F41.1 [facility] [id number] [place] [address] 40663- 9362 Jul, Bipolar disorder, 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 and Generalized anxiety disorder F41.1 [facility] [address] [place] [id number] [place] [address] 54664- 7488 Jun, [facility] [address] [place] [id number] [place] [address] 63286- 8715 Jun, Bipolar disorder, 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 and Generalized anxiety disorder F41.1 [place] [address] [place] [id number] [place] [address] 97061- 6404 Jun, Bipolar disorder, 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 and Generalized anxiety disorder F41.1 [place] [address] [place] [id number] [place] [address] 27276- 3226 Jun, Generalized anxiety disorder F41.1 and Bipolar disorder, 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 [place] [address] [place] [id number] [place] [address] 53608- 9777 May, Generalized anxiety disorder F41.1 and Bipolar disorder, current episode depressed, severe, without psychotic features F31.4 [place] [address] [place] [id number] [place] [address] 98748- 6409 May, Bipolar disorder, 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 [place] [id number] [place] [address] 54840- 4078 May, [place] [address] [place] [id number] [place] [address] 26133- 1064 May, Bipolar disorder, unspecified F31.9 ; Generalized anxiety disorder F41.1 and Insomnia G47.00 [place] [address] [place] [id number] [place] [address] 43939- 0951 May, Bipolar disorder, current episode depressed, severe, without psychotic features F31.4 and Generalized anxiety disorder F41.1 [place] [id number] [place] [address] 35630- 5309 May, [facility] [address], [place] [address]- 0857 Apr, Bipolar disorder, current episode depressed, severe, without psychotic features F31.4 and Generalized anxiety disorder F41.1 [facility] [address] [address]- 7741 Apr, Bipolar disorder, current episode depressed, severe, without psychotic features F31.4 [facility] [address] [id number] [address]- 4924 Apr, Bipolar disorder, current episode depressed, severe, without psychotic features F31.4 and Generalized anxiety disorder F41.1 [place] [address] [address]- 5813 Mar, Bipolar disorder, unspecified 296.80 [place] [address], [place] [address]- 9531 Mar, Bipolar disorder, unspecified 296.80 ; Generalized anxiety disorder 300.02 and Depression, major, recurrent 296.30 [facility] [address] [address]- 8851 Feb, Bipolar disorder, unspecified 296.80 [place] [address], [place] [address]- 7508 Jan, Bipolar disorder, unspecified 296.80 [facility] [address] [address]- 1200 Dec, Bipolar disorder, unspecified 296.80 [facility] [address]- 7481 Dec, Bipolar disorder, unspecified 296.80 ; Major depressive disorder, recurrent episode, unspecified 296.30 and Generalized anxiety disorder 300.02 [facility] [address] [address]- 7804 November, Bipolar disorder, unspecified 296.80 [facility] [address], [place] [address]- 1692 14 Oct, 2014 [facility] [place] [facility] [address] [id number] [place] [address]- 4006 Oct, [facility] [place] [facility] [address] [id number] [place] [address]- 9552 Sep, [facility] [place] [facility] [address] [facility] [id number] [place] [address]- 2695 Sep, [facility] [place] [facility] [address] [id number] [place] [address]- 3328 Jul, [facility] [place] [facility] [address] [id number] [place] [address]- 5921 Jul, [facility] [place] [facility] [address] [id number] [place] [address]- 7222 Jul, [facility] [place] [facility] [address] [facility] [id number] [place] [address]- 0775 Jul, [facility] [place] [facility] [address] [id number], [place] [address]- 9884 Jul, [facility] [place] [facility] [address] [id number], [place] [address]- 1423 Jul, [facility] [place] [facility] [address] [facility] [id number], [place] [address]- 8844 Jun, [facility] [place] [facility] [address] [id number] [address]- 9124 Jun, [facility] [place] [facility] [address] [id number], [place] [address]- 4141 May, [facility] [place] [facility] [address] [id number] [place] [address]- 2803 May, [facility] [place] [facility] [address] [id number], [place] [address]- 3240 May, [facility] [place] [facility] [address] [id number], [place] [address]- 7063 May, [facility] [place] [facility] [address] [id number] [place] [address]- 2070 Apr, [facility] [place] [facility] [address] [id number] [place] [address]- 4233 Apr, [facility] [place] [facility] [address] [id number] [place] [address]- 3368 Mar, [facility] [place] [facility] [address] [id number] [place] [address]- 9168 Mar, [facility] [place] [facility] [address] [id number] [place] [address]- 1759 Feb, [facility] [place] [facility] [address] [id number] [place] [address]- 6603 Feb, [facility] [place] [facility] [address] [id number] [place] [address]- 6199 Feb, [facility] [place] [facility] [address] [id number] [place] [address]- 2399 Feb, [facility] [place] [facility] [address] [id number] [place] [address]- 9681 Feb, [facility] [place] [facility] [address] [id number] [place] [address]- 2893 Feb, [facility] [place] [facility] [address] [id number] [place] [address]- 4964 Feb, [facility] [place] [facility] [address] [id number] [place] [address]- 1909 Feb, [facility] [place] [facility] [address] [id number] [place] [address]- 8301 Feb, [facility] [place] [facility] [address] [id number] [place] [address]- 9691 Feb, [facility] [place] [facility] [address] [id number] [place] [address]- 2290 Feb, [facility] [place] [facility] [address] [id number] [place] [address]- 4950 Feb, [facility] [place] [facility] [address] [id number] [place] [address]- 0946 Feb, [facility] [place] [facility] [address] [id number] [place] [address]- 3979 Feb, [facility] [place] [facility] [address] [id number] [place] [address]- 9497 Jan, [facility] [place] [facility] [address] [id number] [place] [address]- 7946 Jan, [facility] [place] [facility] [address] [id number] [place] [address]- 0294 Jan, [facility] [place] [facility] [address] [id number] [place] [address]- 8697 Jan, [facility] [place] [facility] [address] [id number] [place] [address]- 1957 Jan, [facility] [place] [facility] [address] [id number] [place] [address]- 8852 Jan, [facility] [place] [facility] [address] [id number] [place] [address]- 8125 Jan, [facility] [place] [facility] [address] [id number] [place] [address]- 5896 Jan, [facility] [place] [facility] [address] [id number] [place] [address]- 7348 Dec, [facility] [place] [facility] [address] [id number] [place] [address]- 5826 Dec, [facility] [place] [facility] [address] [id number] [place] [address]- 1120 Dec, [facility] [place] [facility] [address] [id number] [place] [address]- 6164 Dec, [facility] [place] [facility] [address] [id number] [place] [address]- 3828 Dec, [facility] [place] [facility] [address] [id number] [place] [address]- 5037 Dec, [facility] [place] [facility] [address] [id number] [place] [address]- 3978 November, [facility] [place] [facility] [address] [id number] [place] [address]- 0818 November, [facility] [place] [facility] [address] [id number] [place] [address]- 7757 November, [facility] [place] [facility] [address] [id number] [place] [address]- 7886 November, [facility] [place] [facility] [address] [id number] [place] [address]- 7470 Oct, [facility] [place] [facility] [address] [id number] [place] [address]- 8806 Oct, [facility] [place] [facility] [address] [id number] [place] [address]- 4665 Sep, [facility] [place] [facility] [address] [id number] [place] [address]- 9733 Sep, [facility] [place] [facility] [address] [id number] [place] [address]- 2674 Sep, [facility] [place] [facility] [address] [id number] [place] [address]- 8429 Sep, [facility] [place] [facility] [address] [id number] [place] [address]- 9783 Sep, [facility] [place] [facility] [address] [id number] [place] [address]- 6902 Sep, [facility] [place] [facility] [address] [id number] [place] [address]- 3181 Sep, [facility] [place] [facility] [address] [id number] [place] 6265 Sep, [facility] [place] [facility] [address] [id number] [place] [address]- 6878 Aug, [facility] [place] [facility] [address] [id number] [place] [address]- 7495 Aug, [facility] [place] [facility] [address] [id number] [place] [address]- 8041 Aug, [facility] [place] [facility] [address] [id number] [place] [address]- 1026 Aug, [facility] [place] [facility] [address] [id number] [place] [address]- 6232 Aug, [facility] [place] [facility] [address] [id number] [place] [address]- 0628 Aug, [facility] [place] [facility] [address] [id number] [place] [address]- 5377 Aug, [facility] [place] [facility] [address] [id number] [place] [address]- 8883 Aug, [facility] [place] [facility] [address] [id number] [place] [address]- 2512 Jul, [facility] [place] [facility] [address] [id number] [place] [address]- 6625 Jul, [facility] [place] [facility] [address] [id number] [place] [address]- 4255 Jul, [facility] [place] [facility] [address] [id number] [place] [address]- 2052 Jul, [facility] [place] [facility] [address] [id number], [place] [address] Jul, [facility] [place] [facility] [address] [id number] [place] [address] Jul, [facility] [place] [facility] [address] [id number] [place] [address] Jul, [facility] [place] [facility] [address] [id number] [place] [address] Jul, [facility] [place] [facility] [address] [id number], [place] [address] Jun, [facility] [place] [facility] [address] [id number] [place] [address] Jun, [facility] [place] [facility] [address] [id number] [address] Jun, [facility] [place] [facility] [address] [id number] [place] [address] Jun, [facility] [place] [facility] [address] [id number], [place] [address] May, [facility] [place] [facility] [address] [id number] [place] [address] May, [facility] [place] [facility] [address] [id number] [place] [address] May, [facility] [place] [facility] [address] [id number], [place] [address] May, [facility] [place] [facility] [address] [id number], [place] [address] May, [facility] [place] [facility] [address] [id number], [place] [address] May, [facility] [place] [facility] [address] [id number], [place] [address] May, [facility] [place] [facility] [address] [id number], [place] [address] May, [facility] [place] [facility] [address] [id number], [place] [address] Apr, [facility] [place] [facility] [address] [id number], [place] [address] Apr, [facility] [place] [facility] [address] [id number], [place] [address] Apr, [facility] [place] [facility] [address] [id number], [place] [address] Apr, [facility] [place] [facility] [address] [id number] [place] [address] Apr, [facility] [place] [facility] [address] [id number] [place] [address] Apr, [facility] [place] [facility] [address] [id number] [place] [address]- [address] Apr, [facility] [place] [facility] [address] [id number] [place] [address] Apr, [facility] [place] [facility] [address] [id number] [place] [address] Apr, [facility] [place] [facility] [address] [id number] [place] [address] Apr, [facility] [place] [facility] [address] [id number] [place] [address] Apr, [facility] [place] [facility] [address] [id number] [place] [address] Mar, [facility] [place] [facility] [address] [id number] [place] [address] Feb, [facility] [place] [facility] [address] [id number] [place] [address] Feb, [facility] [place] [facility] [address] [id number] [place] [address] Feb, [facility] [place] [facility] [address] [id number] [place] [address] Jan, [facility] [place] [facility] [address] [id number] [place] [address] Dec, [facility] [place] [facility] [address] [id number] [place] [address] Dec, [facility] [place] [facility] [address] [id number] [place] [address] Dec, [facility] [place] [facility] [address] [id number] [place] [address] November, [facility] [address] [id number] [place] [address] November, [facility] [address] [id number] [place] [address] November, [facility] [address] [id number] [place] [address] Oct, [facility] [place] [facility] [address] [id number] [place] [address] Oct, [facility] [address] [id number] [place] [address] Oct, [facility] [address] [id number] [place] [address] Sep, [facility] [address] [id number] [place] [address]687 Sep, [facility] [address] [id number] [place] [address] Sep, [facility] [address] [id number] [place] [address] Aug, [facility] [address] [id number] [place] [address] Jul, [facility] [address] [id number] [place] [address] Jul, [facility] [place] [facility] [address] [id number] [place] [address] Jun, [facility] [place] [facility] [address] [id number] [place] [address] Jun, [facility] [place] [facility] [address] [id number] [place] [address] May, [facility] [place] [facility] [address] [id number] [place] [address] 6745 May, [facility] [place] [facility] [address] [id number] [place] [address]- 8046 May, [facility] [place] [facility] [address] [id number] [place] [address]- 2397 May, [facility] [place] [facility] [address] [id number] [place] [address]- 2461 May, [facility] [place] [facility] [address] [id number] [place] [address] 9716 May, [facility] [place] [facility] [address] [id number] [place] [address] 1448 Apr, [facility] [place] [facility] [address] [id number] [place] [address] 27[address] Feb, [facility] [place] [facility] [address] [id number] [place] [address] Dec, [facility] [place] [facility] [address] [id number] [place] [address] 0842 November, [facility] [place] [facility] [address] [id number] [place] [address]173 Oct, [facility] [place] [facility] [address] [id number] [place] [address] Oct, [facility] [place] [facility] [address] [facility] [id number] [place] [address]- [address]25 Oct, [facility] [place] [facility] [address] [id number] [place] [address]73 Sep, [facility] [place] [facility] [address] [id number] [place] [address] Sep, [facility] [place] [facility] [address] [id number] [place] [address] 15 Aug, 2011 [facility] [place] [facility] [address] [id number] [place] [address] Jul, [facility] [place] [facility] [address] [id number] [place] [address] Jul, [facility] [id number] [address] Jun, [facility] [id number] [place] [address] Jun, [facility] [address] [id number] [address] May, [facility] [id number] [place] [address]- [address] May, [facility] [id number] [place] [address]- 3[address] Apr, [facility] [id number] [place] [address]- [address]644 Mar, [facility] [id number] [place] [address]- 8483 Jan, [facility] [id number] [place] [address]- 7461 Dec, [facility] [id number] [place] [address]- 8897 Jun, [facility] [id number] [place] [address]- [address]457 Jun, [facility] [id number] [address] May, [facility] [id number] [address] May, IMMUNIZATIONS No Known Immunizations SOCIAL HISTORY Never Assessed REASON FOR VISIT BH f/u, Depression and anxiety. PLAN OF CARE Activity Details Follow Up prn Reason: VITAL SIGNS MEDICATIONS Unknown Medications RESULTS No Results PROCEDURES Procedure Date Ordered Result Body Site [facility] VISIT MENTAL HEALTH ESTAB PT September 16, 2017 Psychotherapy, patient &/family, 30 minutes, established patient September 16, 2017 INSTRUCTIONS MEDICATIONS ADMINISTERED No Known Medications [...]
--- OUTSIDE RECORDS SUMMARY | 2018-11-19 07:40 | XMS REPORT ---
Author Author MARÍA Guadalupe Organization [facility] Address [address] [place] [address] Care Team Providers Care Used Car Lot Porter Name Role Phone MARÍA Guadalupe Unavailable PROBLEMS Type Condition ICD9-CM Code ELI13-DT Code Onset Dates Condition Status SNOMED Code Problem Bipolar disorder, current episode depressed, moderate F31.32 Active 676939371 Problem Generalized anxiety disorder F41.1 Active [id number] ALLERGIES Substance Reaction Event Type Date Status Penicillin V Potassium hives Drug Allergy Jul, Active Macrodantin hives Drug Allergy Jul, Active Mushrooms hives, upset stomach Non Drug Allergy Jul, Active Cow milk hives, upset stomach Non Drug Allergy Jul, Active Goat milk hives, upset stomach Non Drug Allergy Jul, Active Eggs hives, upset stomach Non Drug Allergy Jul, Active Soy hives, upset stomach Non Drug Allergy Jul, Active ENCOUNTERS Encounter Location Date Diagnosis [facility] [id number] [address] Jan, [facility] [id number] [place] [address] 48219- 8292 Jan, [facility] [id number] [place] [address] 32449- 9100 Dec, [facility] [id number] [place] [address] 56535- 4736 Dec, Bipolar disorder, current episode depressed, moderate F31.32 and Generalized anxiety disorder F41.1 [facility] [id number] [address] November, Bipolar disorder, current episode depressed, moderate F31.32 and Generalized anxiety disorder F41.1 [facility] [address] [address] November, Bipolar disorder, current episode depressed, moderate F31.32 and Generalized anxiety disorder F41.1 [facility] [id number] [place] [address] 04252- 0553 Oct, Bipolar disorder, current episode depressed, moderate F31.32 and Generalized anxiety disorder F41.1 [facility] [id number] [place] [address] 60960- 5333 Oct, Bipolar disorder, current episode depressed, moderate F31.32 and Generalized anxiety disorder F41.1 [facility] [address] [id number] [place] [address] 41796- 1453 Oct, Bipolar disorder, current episode depressed, moderate F31.32 [facility] [id number] [place] [address] 32178- 6203 Oct, Bipolar disorder, current episode depressed, moderate F31.32 and Generalized anxiety disorder F41.1 [facility] [id number] [place] [address] 01996- 2681 Sep, Bipolar disorder, current episode depressed, moderate F31.32 and Generalized anxiety disorder F41.1 [facility] [address] [address]60 Aug, Bipolar disorder, current episode depressed, moderate F31.32 [facility] [id number] [place] [address] 17618- 8850 Aug, Bipolar disorder, current episode depressed, moderate F31.32 and Generalized anxiety disorder F41.1 [facility] [id number] [place] [address] 71616- 6220 Jul, Bipolar disorder, current episode depressed, moderate F31.32 and Generalized anxiety disorder F41.1 [facility] [address] [address] 12[address] Jul, Bipolar disorder, current episode depressed, moderate F31.32 and High risk medication use Z79.899 [facility] [id number] [place] [address] 73068- 5558 Jul, Generalized anxiety disorder F41.1 and Bipolar disorder, current episode depressed, moderate F31.32 [facility] [id number] [place] [address] 83364- 2064 Feb, Bipolar disorder, current episode depressed, moderate F31.32 and Generalized anxiety disorder F41.1 [facility] [address] [id number] [place] [address] 00245- 3999 November, Bipolar disorder, current episode depressed, moderate F31.32 and Generalized anxiety disorder F41.1 [facility] [id number] [place] [address] 06844- 5879 Aug, Bipolar disorder, current episode depressed, moderate F31.32 and Generalized anxiety disorder F41.1 [facility] [address] [id number] [place] [address] 56179- 8634 Aug, [facility] [id number] [place] [address] 95366 -0028 Aug, Dysuria R30.0 and Acute cystitis with hematuria N30.01 [facility] [address] [place] [id number] [place] [address] 31642- 2408 Aug, Dysuria R30.0 [facility] [address] [id number] [place] [address] 45609- 7692 Aug, Bipolar disorder, current episode depressed, moderate F31.32 and Generalized anxiety disorder F41.1 [facility] [id number] [place] [address] 39165- 0454 Jul, Bipolar disorder, current episode depressed, moderate F31.32 and Generalized anxiety disorder F41.1 [facility] [id number] [place] [address] 80043- 6254 May, Generalized anxiety disorder F41.1 and Bipolar disorder, current episode depressed, moderate F31.32 [facility] [address] [address]- 8698 May, Bipolar disorder, current episode depressed, moderate F31.32 and Generalized anxiety disorder F41.1 [facility] [address] [address]- 7447 Apr, [facility] [id number] [place] [address] 29463- 3162 Apr, [facility] [address] [id number] [place] [address] 77895- 7479 Apr, Bipolar disorder, current episode depressed, moderate F31.32 and Generalized anxiety disorder F41.1 [facility] [address] [id number] [place] [address] 73829- 5769 Apr, [facility] [id number] [place] [address] 29349- 4172 Apr, Adjustment disorder with mixed anxiety and depressed mood F43.23 [facility] [id number] [place] [address] 31016- 6333 Mar, Bipolar disorder, current episode depressed, moderate F31.32 and Generalized anxiety disorder F41.1 [facility] [address] [id number] [place] [address] 24504- 2042 Feb, Bipolar disorder, current episode depressed, moderate F31.32 and Generalized anxiety disorder F41.1 [facility] [address] [address] 1830 Feb, [facility] [address] [address] [id number] [place] [address] 98303- 1429 Feb, Bipolar disorder, current episode depressed, moderate F31.32 and Generalized anxiety disorder F41.1 [facility] [id number] [place] [address] 45059- 4911 Feb, Generalized anxiety disorder F41.1 and Bipolar disorder, current episode depressed, moderate F31.32 [facility] [id number] [place] [address] 91124- 8796 Jan, Bipolar disorder, current episode depressed, moderate F31.32 and Generalized anxiety disorder F41.1 [facility] [id number] [place] [address] 47389- 9718 Jan, Bipolar disorder, current episode depressed, moderate F31.32 and Generalized anxiety disorder F41.1 [facility] [id number] [address]- 4118 Dec, Generalized anxiety disorder F41.1 and Bipolar disorder, current episode depressed, moderate F31.32 [facility] [id number] [place] [address] 17561- 3883 Dec, Bipolar disorder, current episode depressed, moderate F31.32 and Generalized anxiety disorder F41.1 [facility] [id number] [place] [address] 95253- 0490 November, Bipolar disorder, current episode depressed, moderate F31.32 and Generalized anxiety disorder F41.1 [facility] [id number] [place] [address] 75531- 1176 November, Bipolar disorder, current episode depressed, moderate F31.32 and Generalized anxiety disorder F41.1 [facility] [id number] [place] [address] 59785- 4428 November, Generalized anxiety disorder F41.1 and Bipolar disorder, 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 [facility] [id number] [address]- 0108 Oct, Bipolar disorder, current episode depressed, moderate F31.32 and Generalized anxiety disorder F41.1 [facility] [id number] [address]- 9578 Oct, Bipolar disorder, current episode depressed, moderate F31.32 and Generalized anxiety disorder F41.1 [facility] [id number] [address]- 6393 08 Oct, 2015 Bipolar disorder, current episode depressed, moderate F31.32 and Generalized anxiety disorder F41.1 [facility] [address] [address]- 8439 Oct, Bipolar disorder, current episode depressed, moderate F31.32 and Generalized anxiety disorder F41.1 [facility] [address] [place] [address] 84858- 9227 Sep, Bipolar disorder, current episode depressed, moderate F31.32 and Generalized anxiety disorder F41.1 [facility] [address] [id number] [place] [address] 49181- 8672 Sep, Bipolar disorder, current episode depressed, moderate F31.32 and Generalized anxiety disorder F41.1 [facility] [address] [id number] [place] [address] 09639- 8071 Sep, Bipolar disorder, current episode depressed, moderate F31.32 and Generalized anxiety disorder F41.1 [facility] [address] [id number] [place] [address] 85559- 6636 Sep, [facility] [address] [id number] [place] [address] 23690- 0587 Sep, Generalized anxiety disorder F41.1 and Bipolar disorder, current episode depressed, severe, without psychotic features F31.4 [facility] [id number] [place] [address] 20508- 7177 Aug, Bipolar disorder, 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 and Generalized anxiety disorder F41.1 [facility] [place] [id number] [place] [address] 58213- 8938 Aug, Bipolar disorder, 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 and Generalized anxiety disorder F41.1 [facility] [place] [address] [place] [address] 95397- 9619 Jul, Bipolar disorder, 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 and Generalized anxiety disorder F41.1 [facility] [place] [address] [place] [address] 77107- 2355 Jul, Bipolar disorder, 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 and Generalized anxiety disorder F41.1 [facility] [address] [address]- 6229 Jun, [facility] [id number] [place] [address] 78493- 8897 Jun, Bipolar disorder, 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 and Generalized anxiety disorder F41.1 [facility] [address] [id number] [place] [address] 31618- 1548 Jun, Bipolar disorder, 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 and Generalized anxiety disorder F41.1 [facility] [address] [place] [id number] [place] [address] 56707- 2140 Jun, Generalized anxiety disorder F41.1 and Bipolar disorder, 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 [facility] [address] [place] [id number] [place] [address] 52533- 1933 May, Generalized anxiety disorder F41.1 and Bipolar disorder, current episode depressed, severe, without psychotic features F31.4 [facility] [address] [place] [id number] [place] [address] 11738- 2615 May, Bipolar disorder, 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 [facility] [address] [id number] [place] [address] 99144- 6035 May, [facility] [address] [id number] [place] [address] 53314- 7427 May, Bipolar disorder, unspecified F31.9 ; Generalized anxiety disorder F41.1 and Insomnia G47.00 [facility] [id number] [place] [address] 14805- 3093 May, Bipolar disorder, current episode depressed, severe, without psychotic features F31.4 and Generalized anxiety disorder F41.1 [facility] [address] [id number] [place] [address] 73441- 0665 May, [facility] [id number] [place] [address] 79334- 6188 Apr, Bipolar disorder, current episode depressed, severe, without psychotic features F31.4 and Generalized anxiety disorder F41.1 [facility] [address] [address]- 0403 20 Apr, 2015 Bipolar disorder, current episode depressed, severe, without psychotic features F31.4 [facility] [address] [address]- 8826 Apr, Bipolar disorder, current episode depressed, severe, without psychotic features F31.4 and Generalized anxiety disorder F41.1 [facility] [address] [address]- 5533 Mar, Bipolar disorder, unspecified 296.80 [facility] [address] [id number] [place] [address] 01204- 7240 Mar, Bipolar disorder, unspecified 296.80 ; Generalized anxiety disorder 300.02 and Depression, major, recurrent 296.30 [facility] [address] [address] [id number] [place] [address] 37547- 6294 Feb, Bipolar disorder, unspecified 296.80 [facility] [id number] [place] [address] 52357- 5513 Jan, Bipolar disorder, unspecified 296.80 [facility] [address] [place] [id number] [place] [address] 76844- 9526 Dec, Bipolar disorder, unspecified 296.80 [facility] [address] [address]- 9219 Dec, Bipolar disorder, unspecified 296.80 ; Major depressive disorder, recurrent episode, unspecified 296.30 and Generalized anxiety disorder 300.02 [facility] [address] [address]- 3863 November, Bipolar disorder, unspecified 296.80 [facility] [address] [id number] [place] [address] 04206- 5233 Oct, [facility] [address] [address]- 0044 Oct, [facility] [place] [facility] [address] [id number] [place] [address]- 8336 Sep, [facility] [place] [facility] [address] [id number] [place] [address]- 0640 Sep, [facility] [place] [facility] [address] [id number] [place] [address]- 9251 Jul, [facility] [place] [facility] [address] [id number] [place] [address]- 1918 Jul, [facility] [place] [facility] [address] [id number] [place] [address]- 2424 Jul, [facility] [place] [facility] [address] [id number] [place] [address]- 7498 Jul, [facility] [place] [facility] [address] [id number] [place] [address]- 4560 Jul, [facility] [place] [facility] [address] [id number] [place] [address]- 5079 Jul, [facility] [place] [facility] [address] [id number] [place] [address]- 3471 Jun, [facility] [place] [facility] [address] [id number] [place] [address]- 1732 Jun, [facility] [place] [facility] [address] [id number] [place] [address]- 3436 May, [facility] [place] [facility] [address] [id number] [place] [address]- 9297 May, [facility] [place] [facility] [address] [id number] [place] [address]- 7839 May, [facility] [place] [facility] [address] [id number] [place] [address]- 7103 May, [facility] [place] [facility] [address] [id number] [place] [address]- 5306 Apr, [facility] [place] [facility] [address] [id number] [place] [address]- 1624 Apr, [facility] [place] [facility] [address] [id number] [place] [address]- 9393 Mar, [facility] [place] [facility] [address] [id number] [place] [address]- 3621 Mar, [facility] [place] [facility] [address] [id number] [place] [address]- 9798 Feb, [facility] [place] [facility] [address] [id number] [place] [address]- 6193 Feb, [facility] [place] [facility] [address] [id number] [place] [address]- 8876 Feb, [facility] [place] [facility] [address] [id number] [place] [address]- 1405 Feb, [facility] [place] [facility] [address] [id number] [place] [address]- 2587 Feb, [facility] [place] [facility] [address] [id number] [place] [address]- 7107 Feb, [facility] [place] [facility] [address] [id number] [place] [address]- 8334 Feb, [facility] [place] [facility] [address] [id number] [place] [address]- 9539 Feb, [facility] [place] [facility] [address] [id number] [address]- 7832 Feb, [facility] [place] [facility] [address] [id number] [address]- 4907 Feb, [facility] [place] [facility] [address] [id number] [place] [address]- 7327 Feb, [facility] [place] [facility] [address] [id number] [place] [address]- 1917 Feb, [facility] [place] [facility] [address] [id number] [place] [address]- 0261 Feb, [facility] [place] [facility] [address] [id number] [place] [address]- 1874 Feb, [facility] [place] [facility] [address] [id number] [place] [address]- 5814 Jan, [facility] [place] [facility] [address] [id number] [place] 1679 Jan, [facility] [place] [facility] [address] [id number] [place] [address]- 1712 Jan, [facility] [place] [facility] [address] [id number] [place] [address]- 2539 Jan, [facility] [place] [facility] [address] [id number] [place] [address]- 6600 Jan, [facility] [place] [facility] [address] [id number] [place] [address]- 9520 Jan, [facility] [place] [facility] [address] [id number] [place] [address]- 8759 Jan, [facility] [place] [facility] [address] [id number] [place] [address]- 0446 Jan, [facility] [place] [facility] [address] [id number] [place] [address]- 4181 Dec, [facility] [place] [facility] [address] [id number] [place] [address]- 3204 Dec, [facility] [place] [facility] [address] [id number] [place] [address]- 0907 Dec, [facility] [place] [facility] [address] [id number] [place] [address]- 7552 Dec, [facility] [place] [facility] [address] [id number] [place] [address]- 4384 Dec, [facility] [place] [facility] [address] [id number] [place] [address]- 5013 Dec, [facility] [place] [facility] [address] [id number] [place] 7066 November, [facility] [place] [facility] [address] [id number] [place] [address]- 2997 November, [facility] [place] [facility] [address] [id number] [place] [address]- 8030 November, [facility] [place] [facility] [address] [id number] [place] [address]- 0706 November, [facility] [place] [facility] [address] [id number] [place] [address]- 5299 Oct, [facility] [place] [facility] [address] [id number] [place] [address]- 4836 Oct, [facility] [place] [facility] [address] [id number] [place] [address]- 9852 Sep, [facility] [place] [facility] [address] [id number] [place] [address]- 8720 Sep, [facility] [place] [facility] [address] [id number] [place] [address]- 6365 Sep, [facility] [place] [facility] [address] [id number] [place] [address]- 5897 Sep, [facility] [place] [facility] [address] [id number] [place] [address]- 4551 Sep, [facility] [place] [facility] [address] [id number] [place] [address]- 2784 Sep, [facility] [place] [facility] [address] [id number] [place] [address]- 9364 Sep, [facility] [place] [facility] [address] [id number] [place] [address]- 9150 Sep, [facility] [place] [facility] [address] [id number] [place] 2857 Aug, [facility] [place] [facility] [address] [id number] [place] [address]- 7191 Aug, [facility] [place] [facility] [address] [id number] [place] [address]- 7417 Aug, [facility] [place] [facility] [address] [id number] [place] [address]- 6746 Aug, [facility] [place] [facility] [address] [id number] [place] [address]- 0516 Aug, [facility] [place] [facility] [address] [id number] [place] [address]- 6376 Aug, [facility] [place] [facility] [address] [id number] [place] [address]- 7573 Aug, [facility] [place] [facility] [address] [id number] [place] [address]- 0757 Aug, [facility] [place] [facility] [address] [id number] [place] [address]- 9682 Jul, [facility] [place] [facility] [address] [id number] [place] [address]- 8886 Jul, [facility] [place] [facility] [address] [id number] [place] [address]- 1771 Jul, [facility] [place] [facility] [address] [id number] [place] [address]- 2971 Jul, [facility] [place] [facility] [address] [id number] [place] [address]- 6806 Jul, [facility] [place] [facility] [address] [id number] [place] [address]- 7437 Jul, [facility] [place] [facility] [address] [id number] [place] [address]- 8942 Jul, [facility] [place] [facility] [address] [id number] [place] [address]- 8689 Jul, [facility] [place] [facility] [address] [id number] [place] [address]- 0765 Jun, [facility] [place] [facility] [address] [id number] [place] [address]- 4043 Jun, [facility] [place] [facility] [address] [id number] [place] [address]- 2831 Jun, [facility] [place] [facility] [address] [id number] [place] [address]- 3655 Jun, [facility] [place] [facility] [address] [id number] [place] [address] May, [facility] [place] [facility] [address] [id number] [place] [address] May, [facility] [place] [facility] [address] [id number] [place] [address] May, [facility] [place] [facility] [address] [id number] [place] [address] May, [facility] [place] [facility] [address] [id number] [place] [address] May, [facility] [place] [facility] [address] [id number] [place] [address] May, [facility] [place] [facility] [address] [id number] [place] [address] May, [facility] [place] [facility] [address] [id number] [place] [address] May, [facility] [place] [facility] [address] [id number] [place] [address] Apr, [facility] [place] [facility] [address] [id number] [address] Apr, [facility] [place] [facility] [address] [id number] [place] [address] Apr, [facility] [place] [facility] [address] [id number] [place] [address] Apr, [facility] [place] [facility] [address] [id number][place] [address] Apr, [facility] [place] [facility] [address] [id number], [place] [address] Apr, [facility] [place] [facility] [address] [id number] [place] [address] Apr, [facility] [place] [facility] [address] [id number] [place] [address] Apr, [facility] [place] [facility] [address] [id number] [place] [address] Apr, [facility] [place] [facility] [address] [id number] [place] [address] Apr, [facility] [place] [facility] [address] [id number] [place] [address] Apr, [facility] [place] [facility] [address] [id number] [place] [address] Mar, [facility] [place] [facility] [address] [id number] [place] [address] Feb, [facility] [place] [facility] [address] [id number] [place] [address] Feb, [facility] [place] [facility] [address] [id number] [place] [address] Feb, [facility] [place] [facility] [address] [id number] [place] [address] Jan, [facility] [place] [facility] [address] [id number] [place] [address] Dec, [facility] [place] [facility] [address] [id number] [place] [address] Dec, [facility] [place] [facility] [address] [id number] [place] [address] Dec, [facility] [place] [facility] [address] [id number] [place] [address] November, [facility] [place] [facility] [address] [id number] [place] [address] November, [facility] [place] [facility] [address] [id number] [place] [address] November, [facility] [address] [id number] [place] [address] Oct, [facility] [address] [id number] [place] [address] Oct, [facility] [address] [id number] [place] [address] Oct, [facility] [address] [id number] [place] [address] Sep, [facility] [address] [id number] [place] [address] Sep, [facility] [address] [id number] [place] [address] Sep, [facility] [address] [id number] [place] [address] Aug, [facility] [address] [id number] [place] [address] Jul, [facility] [address] [id number] [place] [address] Jul, [facility] [address] [id number] [place] [address] Jun, [facility] [address] [id number] [place] [address] Jun, [facility] [address] [id number] [place] [address] May, [facility] [address] [id number] [place] [address] May, [facility] [address] [id number] [place] [address] May, [facility] [address] [id number] [place] [address] May, [facility] [place] [facility] [address] [id number] [place] [address] 2004 May, [facility] [place] [facility] [address] [id number] [place] [address] May, [facility] [place] [facility] [address] [id number] [place] [address] Apr, [facility] [place] [facility] [address] [id number] [place] [address] Feb, [facility] [place] [facility] [address] [id number] [place] [address] Dec, [facility] [place] [facility] [address] [id number] [place] [address] November, [facility] [place] [facility] [address] [id number] [place] [address] Oct, [facility] [place] [facility] [address] [id number] [place] [address] Oct, [facility] [place] [facility] [address] [id number] [place] [address] Oct, [facility] [place] [facility] [address] [id number] [place] [address] Sep, [facility] [place] [facility] [address] [id number] [place] [address] Sep, [facility] [place] [facility] [address] [id number] [address] Aug, [facility] [place] [facility] [address] [id number] [place] [address] Jul, [facility] [place] [facility] [address] [id number] [place] [address] Jul, [facility] [place] [facility] [address] [id number] [place] [address] Jun, [facility] [place] [facility] [address] [id number] [address] 06 Jun, 2011 [facility] [id number] [address] 16 May, 2011 [facility] [id number] [address] 16 May, 2011 [facility] [id number] [address] 27 Apr, 2011 [facility] [id number] [address] Mar, [facility] [id number] [place] [address] Jan, [facility] [id number] [address] Dec, [facility] [id number] [address] 17 Jun, 2010 [facility] [id number] [address] Jun, [facility] [id number] [address] May, [facility] [id number] [address] May, IMMUNIZATIONS No Known Immunizations SOCIAL HISTORY Never Assessed REASON FOR VISIT FU PLAN OF CARE Activity Details Follow Up Next available Reason:Depression VITAL SIGNS MEDICATIONS Unknown Medications RESULTS No Results PROCEDURES Procedure Date Ordered Result Body Site Psychotherapy, patient &/family, 30 minutes, established patient Jul 07, 2017 INSTRUCTIONS MEDICATIONS ADMINISTERED No Known Medications MEDICAL (GENERAL) HISTORY Type Description Date Medical History parkinsons disease dx 2017-neurologist Dr. Orr Medical History diabetes type II Medical History hx HTN Medical History hx hypercholestorolemia Surgical History Kidney Stent 02/2015 Surgical History Bladder prolapse 01/2016 Surgical History hysterectomy Hospitalization History Septecimic/Bladder infection/Kidney Stones/Enlarged Gallbladder 02/2015 Hospitalization History Surgery Hospitalization History hypokalemia, UTI, weakness, and hypovolemia - Hospital Inpatient Discharge 05/19/17 Hospitalization History UTI - Hospital ED [facility] 05/31/17 Hospitalization History UTI 08-06-17
--- OUTSIDE RECORDS SUMMARY | 2018-11-19 07:40 | XMS REPORT ---
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 Name Role Phone RYNE CAMP Unavailable PROBLEMS Type Condition ICD9-CM Code [id number] Code Onset Dates Condition Status SNOMED Code Problem Bipolar disorder, current episode depressed, moderate F31.32 Active [id number] Problem Generalized anxiety disorder F41.1 Active [id number] ALLERGIES No Information ENCOUNTERS Encounter Location Date Diagnosis [place] [id number] [place] [address] 32943- 7690 May, [place] [address] [place] [id number] [place] [address] 78565- 0276 Jan, [place] [address] [place] [address] [id number] [place] [address] 26449- 5922 Jan, Bipolar disorder, current episode depressed, moderate F31.32 [place] [address] [address] [id number] [place] [address] 29025- 7202 Jan, Bipolar disorder, current episode depressed, moderate F31.32 [place] [id number] [place] [address] 88007- 9523 Jan, Bipolar disorder, current episode depressed, moderate F31.32 and Generalized anxiety disorder F41.1 [facility] [id number] [place] [address] 59072- 6327 Dec, Bipolar disorder, current episode depressed, moderate F31.32 and Generalized anxiety disorder F41.1 [place] [id number] [place] [address] 60361- 8825 November, Bipolar disorder, current episode depressed, moderate F31.32 and Generalized anxiety disorder F41.1 [place] [address] [place] [address] [address] 0778 November, Bipolar disorder, current episode depressed, moderate F31.32 and Generalized anxiety disorder F41.1 [facility] [id number] [place] [address] 18361- 9477 Oct, Bipolar disorder, current episode depressed, moderate F31.32 and Generalized anxiety disorder F41.1 [facility] [id number] [place] [address] 26675- 4423 Oct, Bipolar disorder, current episode depressed, moderate F31.32 and Generalized anxiety disorder F41.1 [place] [address] [place] [address] [id number] [place] [address] 55383- 0974 Oct, Bipolar disorder, current episode depressed, moderate F31.32 [place] [address] [place] [address] [id number] [place] [address] 81590- 2836 Oct, Bipolar disorder, current episode depressed, moderate F31.32 and Generalized anxiety disorder F41.1 [place] [id number] [place] [address] 67300- 1530 Sep, Bipolar disorder, current episode depressed, moderate F31.32 and Generalized anxiety disorder F41.1 [place] [id number] [place] [address] 04605- 7327 Aug, Bipolar disorder, current episode depressed, moderate F31.32 [place] [id number] [place] [address] 87200- 1991 Aug, Bipolar disorder, current episode depressed, moderate F31.32 and Generalized anxiety disorder F41.1 [facility] [id number] [place] [address] 10709- 2226 Jul, Bipolar disorder, current episode depressed, moderate F31.32 and Generalized anxiety disorder F41.1 [facility] [address] [address] 7478 Jul, Bipolar disorder, current episode depressed, moderate F31.32 and High risk medication use Z79.899 [place] [address] [address] 0319 Jul, Generalized anxiety disorder F41.1 and Bipolar disorder, current episode depressed, moderate F31.32 [facility] [id number] [place] [address] 23541- 2283 Feb, Bipolar disorder, current episode depressed, moderate F31.32 and Generalized anxiety disorder F41.1 [facility] [id number] [place] [address] 03898- 9932 November, Bipolar disorder, current episode depressed, moderate F31.32 and Generalized anxiety disorder F41.1 [place] [address] [place] [address] [id number] [place] [address] 98046- 7320 Aug, Bipolar disorder, current episode depressed, moderate F31.32 and Generalized anxiety disorder F41.1 [facility] [id number] [place] [address] 09079- 5302 Aug, [facility] [id number] [place] [address] 69538 -8775 Aug, Dysuria R30.0 and Acute cystitis with hematuria N30.01 [facility] [id number] [place] [address] 24436- 7246 Aug, Dysuria R30.0 [facility] [id number] [place] [address] 07399- 6502 Aug, Bipolar disorder, current episode depressed, moderate F31.32 and Generalized anxiety disorder F41.1 [facility] [address] [place] [address] 45569- 0044 Jul, Bipolar disorder, current episode depressed, moderate F31.32 and Generalized anxiety disorder F41.1 [facility] [id number] [place] [address] 49147- 5678 May, Generalized anxiety disorder F41.1 and Bipolar disorder, current episode depressed, moderate F31.32 [facility] [id number] [address]- 3387 May, Bipolar disorder, current episode depressed, moderate F31.32 and Generalized anxiety disorder F41.1 [facility] [address] [address]- 1723 Apr, [facility] [id number] [place] [address] 34527- 0662 Apr, [facility] [address] [id number] [place] [address] 41631- 2310 Apr, Bipolar disorder, current episode depressed, moderate F31.32 and Generalized anxiety disorder F41.1 [place] [address] [place] [address] [id number] [place] [address] 18044- 8487 Apr, [facility] [id number] [place] [address] 87908- 4988 Apr, Adjustment disorder with mixed anxiety and depressed mood F43.23 [place] [address] [place] [address] [id number] [place] [address] 96290- 5657 Mar, Bipolar disorder, current episode depressed, moderate F31.32 and Generalized anxiety disorder F41.1 [place] [address] [place] [address] [id number] [place] [address] 25725- 3899 Feb, Bipolar disorder, current episode depressed, moderate F31.32 and Generalized anxiety disorder F41.1 [place] [id number] [place] [address] 19405- 2211 Feb, [facility] [id number] [place] [address] 64948- 2665 Feb, Bipolar disorder, current episode depressed, moderate F31.32 and Generalized anxiety disorder F41.1 [place] [address] [place] [address] [id number] [place] [address] 32166- 4124 Feb, Generalized anxiety disorder F41.1 and Bipolar disorder, current episode depressed, moderate F31.32 [place] [id number] [place] [address] 32510- 5288 Jan, Bipolar disorder, current episode depressed, moderate F31.32 and Generalized anxiety disorder F41.1 [facility] [id number] [address]- 0393 Jan, Bipolar disorder, current episode depressed, moderate F31.32 and Generalized anxiety disorder F41.1 [facility] [id number] [address]- 8017 Dec, Generalized anxiety disorder F41.1 and Bipolar disorder, current episode depressed, moderate F31.32 [facility] [id number] [place] [address] 38021- 8282 Dec, Bipolar disorder, current episode depressed, moderate F31.32 and Generalized anxiety disorder F41.1 [facility] [id number] [place] [address] 42403- 7926 November, Bipolar disorder, current episode depressed, moderate F31.32 and Generalized anxiety disorder F41.1 [facility] [id number] [place] [address] 00749- 4631 November, Bipolar disorder, current episode depressed, moderate F31.32 and Generalized anxiety disorder F41.1 [facility] [address] [address]- 8698 November, Generalized anxiety disorder F41.1 and Bipolar disorder, 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 [facility] [id number] [address]- 5036 Oct, Bipolar disorder, current episode depressed, moderate F31.32 and Generalized anxiety disorder F41.1 [facility] [id number] [address]- 4282 Oct, Bipolar disorder, current episode depressed, moderate F31.32 and Generalized anxiety disorder F41.1 [facility] [id number] [address]- 5968 Oct, Bipolar disorder, current episode depressed, moderate F31.32 and Generalized anxiety disorder F41.1 [facility] [address] [address]- 2882 Oct, Bipolar disorder, current episode depressed, moderate F31.32 and Generalized anxiety disorder F41.1 [facility] [id number] [place] [address] 78851- 7421 Sep, Bipolar disorder, current episode depressed, moderate F31.32 and Generalized anxiety disorder F41.1 [facility] [id number] [place] [address] 60616- 7135 Sep, Bipolar disorder, current episode depressed, moderate F31.32 and Generalized anxiety disorder F41.1 [facility] [address] [place] [address] [id number] [place] [address] 06949- 5942 Sep, Bipolar disorder, current episode depressed, moderate F31.32 and Generalized anxiety disorder F41.1 [place] [address] [place] [address] [id number] [place] [address] 45398- 7331 Sep, [facility] [id number] [place] [address] 33529- 2154 Sep, Generalized anxiety disorder F41.1 and Bipolar disorder, current episode depressed, severe, without psychotic features F31.4 [place] [id number] [place] [address] 66097- 7288 Aug, Bipolar disorder, 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 and Generalized anxiety disorder F41.1 [place] [address] [place] [address] 40280- 7253 Aug, Bipolar disorder, 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 and Generalized anxiety disorder F41.1 [facility] [address] [place] [address] 38031- 0898 Jul, Bipolar disorder, 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 and Generalized anxiety disorder F41.1 [facility] [id number] [place] [address] 66464- 8141 Jul, Bipolar disorder, 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 and Generalized anxiety disorder F41.1 [facility] [id number] [address]- 0725 Jun, [facility] [id number] [place] [address] 25647- 3337 Jun, Bipolar disorder, 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 and Generalized anxiety disorder F41.1 [facility] [id number] [place] [address] 63109- 5478 Jun, Bipolar disorder, 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 and Generalized anxiety disorder F41.1 [facility] [id number] [place] [address] 99590- 0387 Jun, Generalized anxiety disorder F41.1 and Bipolar disorder, 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 [facility] [id number] [place] [address] 74522- 7040 May, Generalized anxiety disorder F41.1 and Bipolar disorder, current episode depressed, severe, without psychotic features F31.4 [facility] [id number] [place] [address] 06499- 8588 May, Bipolar disorder, 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 [facility] [address] [place] [id number] [place] [address] 35580- 2552 May, [facility] [id number] [place] [address] 10226- 3211 May, Bipolar disorder, unspecified F31.9 ; Generalized anxiety disorder F41.1 and Insomnia G47.00 [facility] [address] [place] [address] 08892- 8815 May, Bipolar disorder, current episode depressed, severe, without psychotic features F31.4 and Generalized anxiety disorder F41.1 [facility] [address] [place] [address] [id number] [place] [address] 49547- 6297 May, [facility] [id number] [place] [address] 32559- 3931 Apr, Bipolar disorder, current episode depressed, severe, without psychotic features F31.4 and Generalized anxiety disorder F41.1 [facility] [address] [address]- 1050 Apr, Bipolar disorder, current episode depressed, severe, without psychotic features F31.4 [facility] [address] [address]- 2550 Apr, Bipolar disorder, current episode depressed, severe, without psychotic features F31.4 and Generalized anxiety disorder F41.1 [facility] [address] [place] [address] 51287- 2774 Mar, Bipolar disorder, unspecified 296.80 [facility] [id number] [place] [address] 38135- 2544 Mar, Bipolar disorder, unspecified 296.80 ; Generalized anxiety disorder 300.02 and Depression, major, recurrent 296.30 [facility] [address] [place] [id number] [place] [address] 72640- 8607 Feb, Bipolar disorder, unspecified 296.80 [facility] [address] [address]- 6055 Jan, Bipolar disorder, unspecified 296.80 [facility] [address] [place] [id number] [place] [address] 80209- 0607 Dec, Bipolar disorder, unspecified 296.80 [facility] [address] [address]- 0393 Dec, Bipolar disorder, unspecified 296.80 ; Major depressive disorder, recurrent episode, unspecified 296.30 and Generalized anxiety disorder 300.02 [facility] [address] [address]- 0387 November, Bipolar disorder, unspecified 296.80 [facility] [id number] [address]- 5911 Oct, [facility] [address] [address]- 0436 Oct, [facility] [id number] [address]- 3315 Sep, [facility] [place] [facility] [address] [id number] [place] [address]- 3605 Sep, [facility] [place] [facility] [address] [id number] [place] [address]- 5020 Jul, [facility] [place] [facility] [address] [id number] [place] [address]- 4477 Jul, [facility] [place] [facility] [address] [id number] [place] [address]- 6064 Jul, [facility] [place] [facility] [address] [id number] [place] [address]- 4129 Jul, [facility] [place] [facility] [address] [id number] [place] [address]- 5392 Jul, [facility] [place] [facility] [address] [id number] [place] [address]- 7951 Jul, [facility] [place] [facility] [address] [id number] [place] [address]- 5339 Jun, [facility] [place] [facility] [address] [id number] [place] [address]- 7128 Jun, [facility] [place] [facility] [address] [facility] [id number] [place] [address]- 5365 May, [facility] [place] [facility] [address] [id number] [place] [address]- 2385 May, [facility] [place] [facility] [address] [id number] [place] [address]- 0477 May, [facility] [place] [facility] [address] [id number] [place] [address]- 2968 May, [facility] [place] [facility] [address] [id number] [place] [address]- 7126 Apr, [facility] [place] [facility] [address] [id number] [place] [address]- 9068 Apr, [facility] [place] [facility] [address] [id number] [place] [address]- 4819 Mar, [facility] [place] [facility] [address] [id number] [place] [address]- 5244 Mar, [facility] [place] [facility] [address] [id number] [place] [address]- 5779 Feb, [facility] [place] [facility] [address] [id number] [place] [address]- 3163 Feb, [facility] [place] [facility] [address] [id number] [place] [address]- 2201 Feb, [facility] [place] [facility] [address] [id number] [place] [address]- 8206 Feb, [facility] [place] [facility] [address] [id number] [place] [address]- 4226 Feb, [facility] [place] [facility] [address] [id number] [place] [address]- 6578 Feb, [facility] [place] [facility] [address] [id number] [place] [address]- 2690 Feb, [facility] [place] [facility] [address] [id number] [place] [address]- 4331 Feb, [facility] [place] [facility] [address] [id number] [place] [address]- 6994 Feb, [facility] [place] [facility] [address] [id number] [place] [address]- 7895 Feb, [facility] [place] [facility] [address] [id number] [place] [address]- 2176 Feb, [facility] [place] [facility] [address] [id number] [place] [address]- 5660 Feb, [facility] [place] [facility] [address] [id number] [place] [address]- 5996 Feb, [facility] [place] [facility] [address] [id number] [place] [address]- 0715 Feb, [facility] [place] [facility] [address] [id number] [place] [address]- 5639 Jan, [facility] [place] [facility] [address] [id number] [place] [address]- 4473 Jan, [facility] [place] [facility] [address] [id number] [place] [address]- 8883 Jan, [facility] [place] [facility] [address] [id number] [place] [address]- 1781 Jan, [facility] [place] [facility] [address] [id number] [place] [address]- 6347 Jan, [facility] [place] [facility] [address] [id number] [place] [address]- 9166 Jan, [facility] [place] [facility] [address] [id number] [place] [address]- 0772 Jan, [facility] [place] [facility] [address] [id number] [place] [address]- 2171 Jan, [facility] [place] [facility] [address] [id number] [place] [address]- 2880 Dec, [facility] [place] [facility] [address] [id number] [place] [address]- 2924 Dec, [facility] [place] [facility] [address] [id number] [place] [address]- 6888 Dec, [facility] [place] [facility] [address] [id number] [place] [address]- 9343 Dec, [facility] [place] [facility] [address] [id number] [place] [address]- 3725 Dec, [facility] [place] [facility] [address] [id number] [place] [address]- 1550 Dec, [facility] [place] [facility] [address] [id number] [place] [address]- 3190 November, [facility] [place] [facility] [address] [id number] [place] [address]- 8396 November, [facility] [address] [id number] [place] [address]- 8603 November, [facility] [place] [facility] [address] [id number] [place] [address]- 5456 November, [facility] [address] [id number] [place] [address]- 9766 Oct, [facility] [place] [facility] [address] [id number] [place] [address]- 8467 Oct, [facility] [address] [id number] [place] [address]- 2579 Sep, [facility] [place] [facility] [address] [id number] [place] [address]- 3621 Sep, [facility] [place] [facility] [address] [id number] [place] [address]- 7433 Sep, [facility] [address] [id number] [place] [address]- 3373 Sep, [facility] [place] [facility] [address] [id number] [place] [address]- 4724 Sep, [facility] [address] [id number] [place] [address]- 1082 Sep, [facility] [place] [facility] [address] [id number] [place] [address]- 7035 Sep, [facility] [place] [facility] [address] [id number] [place] [address]- 8155 Sep, [facility] [place] [facility] [address] [id number] [place] [address]- 1013 Aug, [facility] [place] [facility] [address] [id number] [place] [address]- 8006 Aug, [facility] [place] [facility] [address] [id number] [place] [address]- 1452 Aug, [facility] [place] [facility] [address] [id number] [place] [address]- 3351 Aug, [facility] [place] [facility] [address] [id number] [place] [address]- 2746 Aug, [facility] [place] [facility] [address] [id number] [place] [address]- 2896 Aug, [facility] [place] [facility] [address] [id number] [place] [address]- 6187 Aug, [facility] [place] [facility] [address] [id number] [place] [address]- 1052 Aug, [facility] [place] [facility] [address] [id number] [place] [address]- 6826 Jul, [facility] [place] [facility] [address] [id number] [place] [address] Jul, [facility] [place] [facility] [address] [id number] [place] [address] Jul, [facility] [place] [facility] [address] [id number] [place] [address] Jul, [facility] [place] [facility] [address] [id number] [place] [address] Jul, [facility] [place] [facility] [address] [id number] [place] [address] Jul, [facility] [place] [facility] [address] [id number] [place] [address] Jul, [facility] [place] [facility] [address] [id number] [place] [address] Jul, [facility] [place] [facility] [address] [id number] [place] [address] Jun, [facility] [place] [facility] [address] [id number] [place] [address] Jun, [facility] [place] [facility] [address] [id number] [place] [address] Jun, [facility] [address] [id number] [place] [address] Jun, [facility] [place] [facility] [address] [id number] [place] [address] May, [facility] [place] [facility] [address] [id number] [place] [address] May, [facility] [place] [facility] [address] [id number] [place] [address] May, [facility] [address] [id number] [place] [address] May, [facility] [place] [facility] [address] [id number] [place] [address] May, [facility] [place] [facility] [address] [id number] [place] [address] May, [facility] [address] [id number] [place] [address] May, [facility] [place] [facility] [address] [id number] [place] [address] May, [facility] [address] [id number] [place] [address] Apr, [facility] [place] [facility] [address] [id number] [place] [address] Apr, [facility] [place] [facility] [address] [id number] [address] Apr, [facility] [place] [facility] [address] [id number] [place] [address] Apr, [facility] [place] [facility] [address] [id number] [place] [address] Apr, [facility] [place] [facility] [address] [id number] [place] [address] Apr, [facility] [place] [facility] [address] [id number] [place] [address] Apr, [facility] [place] [facility] [address] [id number] [place] [address] Apr, [facility] [place] [facility] [address] [id number] [place] [address] Apr, [facility] [place] [facility] [address] [id number] [place] [address] Apr, [facility] [place] [facility] [address] [id number] [place] [address] Apr, [facility] [place] [facility] [address] [id number] [place] [address] Mar, [facility] [place] [facility] [address] [id number] [place] [address] Feb, [facility] [place] [facility] [address] [id number] [place] [address] Feb, [facility] [place] [facility] [address] [id number] [place] [address] Feb, [facility] [place] [facility] [address] [id number] [place] [address] Jan, [facility] [place] [facility] [address] [id number] [place] [address] Dec, [facility] [place] [facility] [address] [id number] [place] [address] Dec, [facility] [place] [facility] [address] [id number] [place] [address] Dec, [facility] [place] [facility] [address] [id number] [place] [address] November, [facility] [place] [facility] [address] [id number] [place] [address] November, [facility] [place] [facility] [address] [id number] [place] [address] November, [facility] [address] [id number] [place] [address] Oct, [facility] [address] [id number] [place] [address] Oct, [facility] [address] [id number] [place] [address] Oct, [facility] [address] [id number] [place] [address] Sep, [facility] [address] [id number] [place] [address] Sep, [facility] [address] [id number] [place] [address] Sep, [facility] [address] [id number] [place] [address] Aug, [facility] [address] [id number] [place] [address] Jul, [facility] [address] [id number] [place] [address] Jul, [facility] [address] [id number] [place] [address] Jun, [facility] [address] [id number] [place] [address] Jun, [facility] [place] [facility] [address] [id number] [place] [address] May, [facility] [place] [facility] [address] [id number] [place] [address] May, [facility] [place] [facility] [address] [id number] [place] [address] May, [facility] [address] [id number] [place] [address] May, [facility] [place] [facility] [address] [id number] [place] [address] May, [facility] [place] [facility] [address] [id number] [place] [address] May, [facility] [place] [facility] [address] [id number] [place] [address] Apr, [facility] [place] [facility] [address] [id number] [place] [address] Feb, [facility] [place] [facility] [address] [id number] [place] [address] Dec, [facility] [place] [facility] [address] [id number] [place] [address] November, [facility] [place] [facility] [address] [id number] [place] [address] Oct, [facility] [place] [facility] [address] [id number] [place] [address] Oct, [facility] [place] [facility] [address] [id number] [place] [address] Oct, [facility] [place] [facility] [address] [id number] [place] [address] Sep, [facility] [place] [facility] [address] [id number] [place] [address] Sep, [facility] [place] [facility] [address] [id number] [place] [address] Aug, [facility] [place] [facility] [address] [id number] [place] [address] Jul, [facility] [place] [facility] [address] [id number] [place] [address] Jul, [facility] [place] [facility] [address] [id number] [place] [address] Jun, [facility] [place] [facility] [address] [id number] [address] Jun, [facility] [address] [id number] [address] May, [facility] [id number] [address] May, [facility] [id number] [address] Apr, [facility] [id number] [address] Mar, [facility] [id number] [place] [address] Jan, [facility] [id number] [place] [address]26 Dec, [facility] [id number] [address] 17 Jun, 2010 [facility] [id number] [place] [address] Jun, [facility] [id number] [place] [address] May, [facility] [address] [id number] [address] May, IMMUNIZATIONS No Known Immunizations SOCIAL HISTORY Never Assessed REASON FOR VISIT f/u, Depression and anxiety. PLAN OF CARE Activity Details Follow Up 1 Week Reason:depression VITAL SIGNS MEDICATIONS Unknown Medications RESULTS No Results PROCEDURES Procedure Date Ordered Result Body Site Psychotherapy, patient &/family, 30 minutes, established patient Jul 21, 2017 visit needs to be added to the same day medical Jul 21, 2017 INSTRUCTIONS MEDICATIONS ADMINISTERED No Known Medications [...]
--- OUTSIDE RECORDS SUMMARY | 2018-11-19 07:41 | XMS REPORT ---
Author Author ELLIE WILKES [facility] Address [address] [place] [address] Care Team Providers Care Supervising Law Enforcement Analyst Name Role Phone ELLIE WILKES Unavailable PROBLEMS Type Condition ICD9-CM Code PED40-RN Code Onset Dates Condition Status SNOMED Code Problem Bipolar disorder, current episode depressed, moderate F31.32 Active 191435365 Problem Generalized anxiety disorder F41.1 Active [id number] ALLERGIES No Information ENCOUNTERS Encounter Location Date Diagnosis [facility] [address] [address] Jan, [facility] [id number] [place] [address] 99784- 9760 Jan, [facility] [id number] [place] [address] 83785- 0908 Jan, [facility] [id number] [place] [address] 26202- 4236 Dec, Bipolar disorder, current episode depressed, moderate F31.32 and Generalized anxiety disorder F41.1 [facility] [address] [address] November, Bipolar disorder, current episode depressed, moderate F31.32 and Generalized anxiety disorder F41.1 [facility] [address] [address]50 November, Bipolar disorder, current episode depressed, moderate F31.32 and Generalized anxiety disorder F41.1 [facility] [address] [address] 6693 Oct, Bipolar disorder, current episode depressed, moderate F31.32 and Generalized anxiety disorder F41.1 [facility] [id number] [place] [address] 60738- 5422 Oct, Bipolar disorder, current episode depressed, moderate F31.32 and Generalized anxiety disorder F41.1 [facility] [id number] [place] [address] 62110- 7137 Oct, Bipolar disorder, current episode depressed, moderate F31.32 [facility] [id number] [place] [address] 64299- 1331 Oct, Bipolar disorder, current episode depressed, moderate F31.32 and Generalized anxiety disorder F41.1 [place] [id number] [place] [address] 58701- 6553 Sep, Bipolar disorder, current episode depressed, moderate F31.32 and Generalized anxiety disorder F41.1 [place] [id number] [place] [address] 18648- 2183 Aug, Bipolar disorder, current episode depressed, moderate F31.32 [place] [id number] [place] [address] 83130- 0898 Aug, Bipolar disorder, current episode depressed, moderate F31.32 and Generalized anxiety disorder F41.1 [place] [id number] [place] [address] 86028- 2688 Jul, Bipolar disorder, current episode depressed, moderate F31.32 and Generalized anxiety disorder F41.1 [place] [id number] [place] [address] 00376- 9698 Jul, Bipolar disorder, current episode depressed, moderate F31.32 and High risk medication use Z79.899 [facility] [id number] [place] [address] 68839- 2791 Jul, Generalized anxiety disorder F41.1 and Bipolar disorder, current episode depressed, moderate F31.32 [place] [id number] [place] [address] 56933- 9616 Feb, Bipolar disorder, current episode depressed, moderate F31.32 and Generalized anxiety disorder F41.1 [place] [address] [address] 3460 November, Bipolar disorder, current episode depressed, moderate F31.32 and Generalized anxiety disorder F41.1 [facility] [id number] [place] [address] 02993- 2924 Aug, Bipolar disorder, current episode depressed, moderate F31.32 and Generalized anxiety disorder F41.1 [facility] [id number] [place] [address] 14943- 7888 Aug, [facility] [id number] [place] [address] 98693 -1718 Aug, Dysuria R30.0 and Acute cystitis with hematuria N30.01 [facility] [id number] [place] [address] 50803- 4042 Aug, Dysuria R30.0 [facility] [id number] [place] [address] 26409- 2776 Aug, Bipolar disorder, current episode depressed, moderate F31.32 and Generalized anxiety disorder F41.1 [place] [id number] [place] [address] 94370- 0879 Jul, Bipolar disorder, current episode depressed, moderate F31.32 and Generalized anxiety disorder F41.1 [place] [id number] [place] [address] 33726- 5544 May, Generalized anxiety disorder F41.1 and Bipolar disorder, current episode depressed, moderate F31.32 [facility] [id number] [place] [address] 30566- 4800 May, Bipolar disorder, current episode depressed, moderate F31.32 and Generalized anxiety disorder F41.1 [facility] [id number] [place] [address] 73101- 9347 Apr, [facility] [id number] [place] [address] 42434- 7505 Apr, [place] [id number] [address]- 0826 Apr, Bipolar disorder, current episode depressed, moderate F31.32 and Generalized anxiety disorder F41.1 [facility] [address] [address]- 4242 Apr, [facility] [id number] [place] [address] 35681- 1217 Apr, Adjustment disorder with mixed anxiety and depressed mood F43.23 [facility] [id number] [place] [address] 95934- 7880 Mar, Bipolar disorder, current episode depressed, moderate F31.32 and Generalized anxiety disorder F41.1 [place] [id number] [place] [address] 14844- 0788 Feb, Bipolar disorder, current episode depressed, moderate F31.32 and Generalized anxiety disorder F41.1 [place] [id number] [place] [address] 73647- 3100 Feb, [facility] [id number] [place] [address] 67058- 8613 Feb, Bipolar disorder, current episode depressed, moderate F31.32 and Generalized anxiety disorder F41.1 [place] [address] [address]- 2693 Feb, Generalized anxiety disorder F41.1 and Bipolar disorder, current episode depressed, moderate F31.32 [facility] [address] [address]- 9515 Jan, Bipolar disorder, current episode depressed, moderate F31.32 and Generalized anxiety disorder F41.1 [place] [address] [address]- 5273 Jan, Bipolar disorder, current episode depressed, moderate F31.32 and Generalized anxiety disorder F41.1 [place] [id number] [place] [address] 11150- 8344 Dec, Generalized anxiety disorder F41.1 and Bipolar disorder, current episode depressed, moderate F31.32 [facility] [id number] [address]- 4212 Dec, Bipolar disorder, current episode depressed, moderate F31.32 and Generalized anxiety disorder F41.1 [facility] [id number] [address]- 0745 November, Bipolar disorder, current episode depressed, moderate F31.32 and Generalized anxiety disorder F41.1 [facility] [id number] [place] [address] 78618- 1345 November, Bipolar disorder, current episode depressed, moderate F31.32 and Generalized anxiety disorder F41.1 [facility] [id number] [place] [address] 78032- 2230 November, Generalized anxiety disorder F41.1 and Bipolar disorder, 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 [facility] [id number] [place] [address] 79646- 9697 Oct, Bipolar disorder, current episode depressed, moderate F31.32 and Generalized anxiety disorder F41.1 [facility] [id number] [place] [address] 32734- 1159 Oct, Bipolar disorder, current episode depressed, moderate F31.32 and Generalized anxiety disorder F41.1 [facility] [id number] [address]- 3163 Oct, Bipolar disorder, current episode depressed, moderate F31.32 and Generalized anxiety disorder F41.1 [facility] [id number] [address]- 5903 Oct, Bipolar disorder, current episode depressed, moderate F31.32 and Generalized anxiety disorder F41.1 [facility] [id number] [address]- 4344 Sep, Bipolar disorder, current episode depressed, moderate F31.32 and Generalized anxiety disorder F41.1 [facility] [address] [address]- 9329 Sep, Bipolar disorder, current episode depressed, moderate F31.32 and Generalized anxiety disorder F41.1 [facility] [id number] [place] [address] 08287- 2452 Sep, Bipolar disorder, current episode depressed, moderate F31.32 and Generalized anxiety disorder F41.1 [facility] [id number] [place] [address] 41183- 5946 Sep, [facility] [id number] [place] [address] 18264- 5055 Sep, Generalized anxiety disorder F41.1 and Bipolar disorder, current episode depressed, severe, without psychotic features F31.4 [place] [id number] [place] [address] 23669- 8168 Aug, Bipolar disorder, 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 and Generalized anxiety disorder F41.1 [place] [id number] [place] [address] 09705- 0048 Aug, Bipolar disorder, 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 and Generalized anxiety disorder F41.1 [place] [id number] [place] [address] 17576- 4284 Jul, Bipolar disorder, 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 and Generalized anxiety disorder F41.1 [place] [id number] [place] [address] 59292- 7448 Jul, Bipolar disorder, 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 and Generalized anxiety disorder F41.1 [facility] [id number] [place] [address] 72977- 7265 Jun, [facility] [id number] [place] [address] 08642- 7734 Jun, Bipolar disorder, 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 and Generalized anxiety disorder F41.1 [facility] [id number] [place] [address] 45086- 1578 Jun, Bipolar disorder, 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 and Generalized anxiety disorder F41.1 [facility] [id number] [place] [address] 76969- 8364 Jun, Generalized anxiety disorder F41.1 and Bipolar disorder, 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 [facility] [id number] [place] [address] 44162- 5309 May, Generalized anxiety disorder F41.1 and Bipolar disorder, current episode depressed, severe, without psychotic features F31.4 [facility] [id number] [place] [address] 06160- 0355 May, Bipolar disorder, 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 [facility] [id number] [place] [address] 26240- 5400 May, [facility] [id number] [place] [address] 82251- 2475 May, Bipolar disorder, unspecified F31.9 ; Generalized anxiety disorder F41.1 and Insomnia G47.00 [facility] [id number] [place] [address] 69770- 3289 May, Bipolar disorder, current episode depressed, severe, without psychotic features F31.4 and Generalized anxiety disorder F41.1 [facility] [id number] [place] [address] 82888- 6674 May, [facility] [id number] [place] [address] 37093- 9785 Apr, Bipolar disorder, current episode depressed, severe, without psychotic features F31.4 and Generalized anxiety disorder F41.1 [facility] [id number] [place] [address] 83275- 0926 Apr, Bipolar disorder, current episode depressed, severe, without psychotic features F31.4 [facility] [id number] [place] [address] 40425- 2519 Apr, Bipolar disorder, current episode depressed, severe, without psychotic features F31.4 and Generalized anxiety disorder F41.1 [facility] [address] [address]- 3400 Mar, Bipolar disorder, unspecified 296.80 [facility] [id number] [place] [address] 997372- 9908 Mar, Bipolar disorder, unspecified 296.80 ; Generalized anxiety disorder 300.02 and Depression, major, recurrent 296.30 [facility] [id number] [place] [address] 94157- 8966 Feb, Bipolar disorder, unspecified 296.80 [facility] [id number] [place] [address] 246594- 0327 Jan, Bipolar disorder, unspecified 296.80 [facility] [id number] [place] [address] 454155- 9917 Dec, Bipolar disorder, unspecified 296.80 [facility] [id number] [place] [address] 118277- 6693 Dec, Bipolar disorder, unspecified 296.80 ; Major depressive disorder, recurrent episode, unspecified 296.30 and Generalized anxiety disorder 300.02 [facility] [id number] [place] [address] 46143- 5050 November, Bipolar disorder, unspecified 296.80 [facility] [address] [address]- 0814 Oct, [facility] [id number] [place] [address] 79424- 4044 Oct, [facility] [address] 4408 Sep, [facility] [id number] [place] [address] [id number]- 3061 Sep, [facility] [address] 8709 Jul, [facility] [id number] [place] [address] 63848- 5541 Jul, [facility] [place] [facility] [address] [id number] [place] [address]- 6484 Jul, [facility] [place] [facility] [address] [id number] [place] [address]- 1123 Jul, [facility] [place] [facility] [address] [id number] [place] [address]- 0598 Jul, [facility] [place] [facility] [address] [id number] [place] [address]- 7117 Jul, [facility] [place] [facility] [address] [id number] [place] [address]- 7586 Jun, [facility] [place] [facility] [address] [id number] [place] [address]- 5365 Jun, [facility] [place] [facility] [address] [id number] [place] [address]- 2750 May, [facility] [place] [facility] [address] [id number] [place] [address]- 3058 May, [facility] [place] [facility] [address] [id number] [place] [address]- 7111 May, [facility] [place] [facility] [address] [id number] [place] [address]- 4499 May, [facility] [place] [facility] [address] [id number] [address]- 8542 Apr, [facility] [place] [facility] [address] [id number], [place] [address]- 9431 Apr, [facility] [place] [facility] [address] [id number] [place] [address]- 1091 Mar, [facility] [place] [facility] [address] [id number] [place] [address]- 2162 Mar, [facility] [place] [facility] [address] [id number] [place] [address]- 9886 Feb, [facility] [place] [facility] [address] [id number] [place] [address]- 0579 Feb, [facility] [place] [facility] [address] [id number] [place] [address]- 5298 Feb, [facility] [place] [facility] [address] [id number] [place] [address]- 5889 Feb, [facility] [place] [facility] [address] [id number] [place] [address]- 7248 Feb, [facility] [place] [facility] [address] [id number] [place] [address]- 5468 Feb, [facility] [place] [facility] [address] [id number] [place] [address]- 0906 Feb, [facility] [place] [facility] [address] [id number] [place] [address]- 7695 Feb, [facility] [place] [facility] [address] [id number] [place] [address]- 4535 Feb, [facility] [place] [facility] [address] [id number] [place] [address]- 1956 Feb, [facility] [place] [facility] [address] [id number] [place] [address]- 7355 Feb, [facility] [place] [facility] [address] [id number] [place] [address]- 3566 Feb, [facility] [place] [facility] [address] [id number] [place] [address]- 3667 Feb, [facility] [place] [facility] [address] [id number] [place] [address]- 2561 Feb, [facility] [place] [facility] [address] [id number] [place] [address]- 1232 Jan, [facility] [place] [facility] [address] [id number] [place] [address]- 0521 Jan, [facility] [place] [facility] [address] [id number] [place] [address]- 3457 Jan, [facility] [place] [facility] [address] [id number] [place] [address]- 1027 Jan, [facility] [place] [facility] [address] [id number] [place] [address]- 6183 Jan, [facility] [place] [facility] [address] [id number] [place] [address]- 9288 Jan, [facility] [place] [facility] [address] [id number] [place] [address]- 5775 Jan, [facility] [place] [facility] [address] [id number] [place] [address]- 5393 Jan, [facility] [place] [facility] [address] [id number] [place] [address]- 3214 Dec, [facility] [place] [facility] [address] [id number] [place] [address]- 3937 Dec, [facility] [place] [facility] [address] [id number] [place] [address]- 1208 Dec, [facility] [place] [facility] [address] [id number] [place] [address]- 6612 Dec, [facility] [place] [facility] [address] [id number] [place] [address]- 4782 Dec, [facility] [place] [facility] [address] [id number] [place] [address]- 3316 Dec, [facility] [place] [facility] [address] [id number] [place] [address]- 8763 November, [facility] [place] [facility] [address] [id number] [place] [address]- 0355 November, [facility] [place] [facility] [address] [id number] [place] [address]- 0204 November, [facility] [place] [facility] [address] [id number] [place] 8736 November, [facility] [place] [facility] [address] [id number] [place] [address]- 1626 15 Oct, 2013 [facility] [place] [facility] [address] [id number] [place] [address]- 8793 15 Oct, 2013 [facility] [place] [facility] [address] [id number] [place] [address]- 5151 Sep, [facility] [place] [facility] [address] [id number] [place] [address]- 7207 Sep, [facility] [place] [facility] [address] [id number] [place] [address]- 2655 Sep, [facility] [place] [facility] [address] [id number] [place] [address]- 4493 Sep, [facility] [place] [facility] [address] [id number] [place] [address]- 9827 Sep, [facility] [place] [facility] [address] [id number] [place] [address]- 1458 Sep, [facility] [place] [facility] [address] [id number] [place] [address]- 3265 Sep, [facility] [place] [facility] [address] [id number] [place] [address]- 5116 Sep, [facility] [place] [facility] [address] [id number] [place] [address]- 8149 Aug, [facility] [place] [facility] [address] [id number] [place] [address]- 9755 Aug, [facility] [place] [facility] [address] [id number] [place] [address]- 9435 Aug, [facility] [place] [facility] [address] [id number] [place] [address]- 5308 Aug, [facility] [place] [facility] [address] [id number] [place] [address]- 7958 Aug, [facility] [place] [facility] [address] [id number] [place] [address]- 7237 Aug, [facility] [address] [id number] [place] [address]- 5318 07 Aug, 2013 [facility] [place] [facility] [address] [id number] [place] [address]- 1786 Aug, [facility] [place] [facility] [address] [id number] [place] [address]- 1824 Jul, [facility] [place] [facility] [address] [id number] [place] [address]- 9558 Jul, [facility] [place] [facility] [address] [id number] [place] [address]- 3809 Jul, [facility] [place] [facility] [address] [id number] [place] [address]- 8927 Jul, [facility] [place] [facility] [address] [id number] [place] [address]- 0101 Jul, [facility] [place] [facility] [address] [id number] [place] [address]- 3363 Jul, [facility] [place] [facility] [address] [id number] [place] [address]- 6592 Jul, [facility] [place] [facility] [address] [id number] [place] [address]- 1217 Jul, [facility] [place] [facility] [address] [id number], [place] [address] Jun, [facility] [place] [facility] [address] [id number], [place] [address] Jun, [facility] [place] [facility] [address] [id number] [place] [address] Jun, [facility] [place] [facility] [address] [id number] [place] [address] Jun, [facility] [place] [facility] [address] [id number] [place] [address] May, [facility] [place] [facility] [address] [id number], [place] [address] May, [facility] [place] [facility] [address] [id number] [place] [address] May, [facility] [place] [facility] [address] [id number], [place] [address] May, [facility] [place] [facility] [address] [id number] [place] [address] May, [facility] [place] [facility] [address] [id number] [place] [address] May, [facility] [place] [facility] [address] [id number] [place] [address] May, [facility] [place] [facility] [address] [id number] [place] [address] May, [facility] [place] [facility] [address] [id number], [place] [address] Apr, [facility] [place] [facility] [address] [id number], [place] [address] Apr, [facility] [place] [facility] [address] [id number] [place] [address] Apr, [facility] [place] [facility] [address] [id number], [place] [address] Apr, [facility] [place] [facility] [address] [id number], [place] [address] Apr, [facility] [place] [facility] [address] [id number], [place] [address] Apr, [facility] [place] [facility] [address] [id number], [place] [address] Apr, [facility] [place] [facility] [address] [id number], [place] [address] Apr, [facility] [place] [facility] [address] [id number], [place] [address] Apr, [facility] [place] [facility] [address] [id number] [place] [address] Apr, [facility] [place] [facility] [address] [id number] [place] [address] Apr, [facility] [place] [facility] [address] [id number] [place] [address] Mar, [facility] [place] [facility] [address] [id number] [place] [address] Feb, [facility] [place] [facility] [address] [id number] [place] [address] Feb, [facility] [place] [facility] [address] [id number] [place] [address] Feb, [facility] [place] [facility] [address] [id number] [place] [address] Jan, [facility] [place] [facility] [address] [id number] [place] [address] Dec, [facility] [place] [facility] [address] [id number] [place] [address] Dec, [facility] [place] [facility] [address] [id number] [place] [address] Dec, [facility] [place] [facility] [address] [id number] [place] [address] November, [facility] [place] [facility] [address] [id number] [place] [address] November, [facility] [place] [facility] [address] [id number] [place] [address] November, [facility] [place] [facility] [address] [id number] [place] [address] Oct, [facility] [place] [facility] [address] [id number] [place] [address] Oct, [facility] [place] [facility] [address] [id number] [place] [address] Oct, [facility] [place] [facility] [address] [id number] [place] [address] Sep, [facility] [place] [facility] [address] [id number] [place] [address] Sep, [facility] [place] [facility] [address] [facility] [id number] [place] [address] Sep, [facility] [place] [facility] [address] [id number] [place] [address] Aug, [facility] [place] [facility] [address] [id number] [place] [address] Jul, [facility] [place] [facility] [address] [id number] [place] [address] Jul, [facility] [place] [facility] [address] [id number] [place] [address] Jun, [facility] [place] [facility] [address] [id number] [place] [address] Jun, [facility] [place] [facility] [address] [id number] [place] [address] May, [facility] [place] [facility] [address] [id number] [place] [address] May, [facility] [place] [facility] [address] [id number], [place] [address] May, [facility] [place] [facility] [address] [id number], [place] [address] May, [facility] [place] [facility] [address] [id number] [place] [address] May, [facility] [place] [facility] [address] [facility] [id number][place] [address] May, [facility] [place] [facility] [address] [facility] [id number] [place] [address] Apr, [facility] [place] [facility] [address] [id number] [place] [address] Feb, [facility] [address] [id number] [place] [address] Dec, [facility] [place] [facility] [address] [id number] [place] [address] November, [facility] [address] [id number] [place] [address] Oct, [facility] [address] [id number] [place] [address] Oct, [facility] [address] [id number] [place] [address] Oct, [facility] [address] [id number] [place] [address] Sep, [facility] [address] [id number] [place] [address] Sep, [facility] [address] [id number] [place] [address] Aug, [facility] [address] [id number] [place] [address] Jul, [facility] [address] [id number] [place] [address] Jul, [facility] [address] [id number] [place] [address] Jun, [facility] [address] [id number] [place] [address] Jun, [facility] [place] [facility] [address] [id number] [place] [address] May, [facility] [place] [facility] [address] [id number] [place] [address] 16 May, 2011 [facility] [address] [id number] [place] [address] Apr, [facility] [address] [facility] [id number], [place] [address] Mar, [facility] [address] [id number], [place] [address] Jan, [facility] [address] [id number], [place] [address] Dec, [facility] [address] [id number], [place] [address] Jun, [facility] [address] [id number], [place] [address] Jun, [facility] [address] [id number], [place] [address] May, [facility] [address] [id number], [place] [address] May, IMMUNIZATIONS No Known Immunizations SOCIAL HISTORY Never Assessed REASON FOR VISIT f/u - dr kerr patient PLAN OF CARE Activity Details Follow Up 2 Weeks Reason: F/U VITAL SIGNS MEDICATIONS Unknown Medications RESULTS No Results PROCEDURES Procedure Date Ordered Result Body Site [facility] M[facility] ESTAB PT Aug 10, 2017 Psychotherapy, patient &/family, 45 minutes, established patient Aug 10, 2017 INSTRUCTIONS MEDICATIONS ADMINISTERED No Known Medications [...] Hospitalization History UTI - Hospital ED [facility], [place], operated by [facility] 05/31/17 Hospitalization History UTI 08-06-17
--- OUTSIDE RECORDS SUMMARY | 2018-11-19 07:42 | XMS REPORT ---
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 Name Role Phone RYNE CAMP Unavailable PROBLEMS Type Condition ICD9-CM Code [id number] Code Onset Dates Condition Status SNOMED Code Problem Bipolar disorder, current episode depressed, moderate F31.32 Active 875063890 Problem Generalized anxiety disorder F41.1 Active [id number] ALLERGIES No Information ENCOUNTERS Encounter Location Date Diagnosis [place] [id number] [place] [address] 22427- 6971 Jan, [place] [address] [place] [id number] [place] [address] 99314- 5282 Oct, [place] [address] [place] [id number] [place] [address] 17457- 8900 Oct, Bipolar disorder, current episode depressed, moderate F31.32 [place] [address] [place] [id number] [place] [address] 07821- 6200 Oct, Bipolar disorder, current episode depressed, moderate F31.32 and Generalized anxiety disorder F41.1 [place] [id number] [place] [address] 84587- 6280 Sep, Bipolar disorder, current episode depressed, moderate F31.32 and Generalized anxiety disorder F41.1 [place] [id number] [place] [address] 46459- 7712 Aug, Bipolar disorder, current episode depressed, moderate F31.32 [place] [id number] [place] [address] 44402- 9838 Aug, Bipolar disorder, current episode depressed, moderate F31.32 and Generalized anxiety disorder F41.1 [place] [address] [place] [id number] [place] [address] 14322- 6499 Jul, Bipolar disorder, current episode depressed, moderate F31.32 and Generalized anxiety disorder F41.1 [facility] [address] [place] [address] 83657- 5331 Jul, Bipolar disorder, current episode depressed, moderate F31.32 and High risk medication use Z79.899 [place] [address] [place] [id number] [place] [address] 89673- 9541 Jul, Generalized anxiety disorder F41.1 and Bipolar disorder, current episode depressed, moderate F31.32 [place] [address] [place] [id number] [place] [address] 23497- 8991 Feb, Bipolar disorder, current episode depressed, moderate F31.32 and Generalized anxiety disorder F41.1 [place] [address] [place] [id number] [place] [address] 17610- 8574 November, Bipolar disorder, current episode depressed, moderate F31.32 and Generalized anxiety disorder F41.1 [place] [address] [place] [id number] [place] [address] 05100- 7427 Aug, Bipolar disorder, current episode depressed, moderate F31.32 and Generalized anxiety disorder F41.1 [place] [address] [place] [address] 79093- 2356 Aug, [facility] [address] [place] [address] 60975 -2243 Aug, Dysuria R30.0 and Acute cystitis with hematuria N30.01 [facility] [address] [place] [address] 76010- 3639 Aug, Dysuria R30.0 [facility] [address] [place] [address] 48270- 3463 Aug, Bipolar disorder, current episode depressed, moderate F31.32 and Generalized anxiety disorder F41.1 [place] [address] [place] [id number] [place] [address] 44211- 9014 Jul, Bipolar disorder, current episode depressed, moderate F31.32 and Generalized anxiety disorder F41.1 [facility] [address] [place] [id number] [place] [address] 71111- 8065 May, Generalized anxiety disorder F41.1 and Bipolar disorder, current episode depressed, moderate F31.32 [facility] [address] [place] [address] [id number] [place] [address] 42935- 8012 May, Bipolar disorder, current episode depressed, moderate F31.32 and Generalized anxiety disorder F41.1 [facility] [address] [place] [id number] [place] [address] 25183- 3929 Apr, [facility] [address] [place] [id number] [place] [address] 38024- 0640 Apr, [facility] [address] [place] [id number] [place] [address] 39770- 6914 Apr, Bipolar disorder, current episode depressed, moderate F31.32 and Generalized anxiety disorder F41.1 [facility] [address] [place] [id number] [place] [address] 39307- 4793 Apr, [facility] [address] [place] [id number] [place] [address] 85257- 4008 Apr, Adjustment disorder with mixed anxiety and depressed mood F43.23 [facility] [address] [place] [address] 28533- 0712 Mar, Bipolar disorder, current episode depressed, moderate F31.32 and Generalized anxiety disorder F41.1 [facility] [address] [place] [id number] [place] [address] 86845- 2991 Feb, Bipolar disorder, current episode depressed, moderate F31.32 and Generalized anxiety disorder F41.1 [facility] [address] [place] [id number] [address]- 3790 Feb, [facility] [address] [place] [id number] [place] [address] 66660- 2808 Feb, Bipolar disorder, current episode depressed, moderate F31.32 and Generalized anxiety disorder F41.1 [facility] [address] [place] [address] 67404- 4142 Feb, Generalized anxiety disorder F41.1 and Bipolar disorder, current episode depressed, moderate F31.32 [facility] [address] [place] [id number] [place] [address] 54125- 3660 Jan, Bipolar disorder, current episode depressed, moderate F31.32 and Generalized anxiety disorder F41.1 [facility] [address] [place] [id number] [place] [address] 58070- 3255 Jan, Bipolar disorder, current episode depressed, moderate F31.32 and Generalized anxiety disorder F41.1 [place] [address] [place] [id number] [place] [address] 04279- 7221 Dec, Generalized anxiety disorder F41.1 and Bipolar disorder, current episode depressed, moderate F31.32 [place] [address] [place] [id number] [place] [address] 77861- 7259 Dec, Bipolar disorder, current episode depressed, moderate F31.32 and Generalized anxiety disorder F41.1 [place] [address] [place] [id number] [place] [address] 01914- 2614 November, Bipolar disorder, current episode depressed, moderate F31.32 and Generalized anxiety disorder F41.1 [facility] [address] [place] [address] 07705- 5837 November, Bipolar disorder, current episode depressed, moderate F31.32 and Generalized anxiety disorder F41.1 [facility] [address] [place] [id number] [place] [address] 78921- 0196 November, Generalized anxiety disorder F41.1 and Bipolar disorder, 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 [facility] [address] [place] [id number] [place] [address] 93800- 1528 Oct, Bipolar disorder, current episode depressed, moderate F31.32 and Generalized anxiety disorder F41.1 [facility] [address] [place] [address] [id number] [place] [address] 46872- 2336 13 Oct, 2015 Bipolar disorder, current episode depressed, moderate F31.32 and Generalized anxiety disorder F41.1 [facility] [address] [place] [address] 99446- 1906 Oct, Bipolar disorder, current episode depressed, moderate F31.32 and Generalized anxiety disorder F41.1 [facility] [address] [place] [address] 06706- 1710 Oct, Bipolar disorder, current episode depressed, moderate F31.32 and Generalized anxiety disorder F41.1 [facility] [address] [place] [id number] [place] [address] 63372- 5874 Sep, Bipolar disorder, current episode depressed, moderate F31.32 and Generalized anxiety disorder F41.1 [facility] [address] [place] [address] 00385- 7619 Sep, Bipolar disorder, current episode depressed, moderate F31.32 and Generalized anxiety disorder F41.1 [facility] [address] [place] [address] 08663- 4756 Sep, Bipolar disorder, current episode depressed, moderate F31.32 and Generalized anxiety disorder F41.1 [facility] [address] [place] [address] 69723- 7947 Sep, [facility] [address] [place] [address] 72326- 0807 Sep, Generalized anxiety disorder F41.1 and Bipolar disorder, current episode depressed, severe, without psychotic features F31.4 [facility] [address] [address]- 9688 Aug, Bipolar disorder, current episode hypomanic F31.0 and Generalized anxiety disorder F41.1 [facility] [address] [address]- 4450 Aug, Bipolar disorder, current episode hypomanic F31.0 and Generalized anxiety disorder F41.1 [facility] [address] [place] [id number] [address]- 3800 Jul, Bipolar disorder, current episode hypomanic F31.0 and Generalized anxiety disorder F41.1 [facility] [address] [place] [id number] [place] [address] 42194- 1506 Jul, Bipolar disorder, current episode hypomanic F31.0 and Generalized anxiety disorder F41.1 [facility] [address] [place] [id number] [place] [address] 32762- 4365 Jun, [facility] [address] [place] [address] [id number] [place] [address] 91964- 2337 Jun, Bipolar disorder, current episode hypomanic F31.0 and Generalized anxiety disorder F41.1 [place] [address] [place] [id number] [place] [address] 30789- 0934 Jun, Bipolar disorder, current episode hypomanic F31.0 and Generalized anxiety disorder F41.1 [facility] [address] [place] [id number] [place] [address] 39849- 9146 Jun, Generalized anxiety disorder F41.1 and Bipolar disorder, current episode hypomanic F31.0 [place] [address] [place] [id number] [place] [address] 79655- 4634 May, Generalized anxiety disorder F41.1 and Bipolar disorder, current episode depressed, severe, without psychotic features F31.4 [facility] [address] [place] [address] 36866- 2344 May, Bipolar disorder, current episode hypomanic F31.0 [facility] [address] [place] [address] 92069- 0503 May, [facility] [address] [place] [id number] [place] [address] 24860- 4620 May, Bipolar disorder, unspecified F31.9 ; Generalized anxiety disorder F41.1 and Insomnia G47.00 [facility] [address] [place] [address] 88621- 7171 May, Bipolar disorder, current episode depressed, severe, without psychotic features F31.4 and Generalized anxiety disorder F41.1 [facility] [address] [address]- 7851 May, [facility] [address] [place] [id number] [place] [address] 62923- 9787 Apr, Bipolar disorder, current episode depressed, severe, without psychotic features F31.4 and Generalized anxiety disorder F41.1 [facility] [address] [place] [id number] [place] [address] 30669- 4283 Apr, Bipolar disorder, current episode depressed, severe, without psychotic features F31.4 [place] [address] [place] [id number] [place] [address] 55586- 3845 Apr, Bipolar disorder, current episode depressed, severe, without psychotic features F31.4 and Generalized anxiety disorder F41.1 [place] [address] [place] [id number] [place] [address] 71130- 4620 Mar, Bipolar disorder, unspecified 296.80 [place] [address] [place] [id number] [place] [address] 98553- 7347 Mar, Bipolar disorder, unspecified 296.80 ; Generalized anxiety disorder 300.02 and Depression, major, recurrent 296.30 [facility] [address] [place] [id number] [place] [address] 06737- 3506 Feb, Bipolar disorder, unspecified 296.80 [facility] [address] [place] [id number] [place] [address] 08836- 9996 Jan, Bipolar disorder, unspecified 296.80 [facility] [address] [place] [address] 71198- 3057 Dec, Bipolar disorder, unspecified 296.80 [facility] [address] [place] [id number] [place] [address] 845263- 1449 Dec, Bipolar disorder, unspecified 296.80 ; Major depressive disorder, recurrent episode, unspecified 296.30 and Generalized anxiety disorder 300.02 [facility] [address] [place] [id number] [place] [address] [place] [address]- 5144 November, Bipolar disorder, unspecified 296.80 [facility] [address] [id number] [place] [address]- 0387 Oct, [facility] [address] [facility] [id number] [place] [address]- 5625 Oct, [facility] [address] [place] [address]- 7106 Sep, [facility] [address] [facility] [id number] [place] [address]- 9003 Sep, [facility] [address] [place] [address]- 5307 Jul, [facility] [address] [place] [id number] [place] [address]- 4016 Jul, [facility] [address] [place] [address]- 4690 Jul, [facility] [id number], [place] [address]- 2078 Jul, [facility] [address] [place] [address]- 3728 Jul, [facility] [id number] [address]- 0965 Jul, [facility] [address] [address]- 0664 Jun, [facility] [address] [facility] [id number] [address]- 9703 Jun, [facility] [address] [place] [address]- 8240 May, [facility] [address] [facility] [id number] [place] [address]- 8104 May, [facility] [id number] 3985 May, [facility] [place] [facility] [address] [id number] [place] [address]- 8557 May, [facility] [place] [facility] [address] [id number] [place] [address]- 2705 Apr, [facility] [place] [facility] [address] [id number] [place] [address]- 7244 Apr, [facility] [place] [facility] [address] [id number] [place] [address]- 8540 Mar, [facility] [place] [facility] [address] [id number] [place] [address]- 6020 Mar, [facility] [place] [facility] [address] [id number] [place] [address]- 8495 Feb, [facility] [place] [facility] [address] [id number] [place] [address]- 8047 Feb, [facility] [place] [facility] [address] [id number] [place] [address]- 2811 Feb, [facility] [place] [facility] [address] [id number] [place] [address]- 8252 Feb, [facility] [place] [facility] [address] [id number] [place] [address]- 9431 Feb, [facility] [place] [facility] [address] [id number] [place] [address]- 4806 Feb, [facility] [place] [facility] [address] [id number] [place] [address]- 7667 Feb, [facility] [place] [facility] [address] [id number] [place] [address]- 7319 Feb, [facility] [place] [facility] [address] [id number] [place] [address]- 7556 Feb, [facility] [place] [facility] [address] [id number] [place] [address]- 0526 Feb, [facility] [place] [facility] [address] [id number] [place] [address]- 1602 Feb, [facility] [place] [facility] [address] [id number] [place] [address]- 1247 Feb, [facility] [place] [facility] [address] [id number] [place] [address]- 6334 Feb, [facility] [place] [facility] [address] [id number] [place] [address]- 8241 Feb, [facility] [place] [facility] [address] [id number] [place] [address]- 4940 Jan, [facility] [place] [facility] [address] [id number] [place] [address]- 6695 Jan, [facility] [place] [facility] [address] [id number] [place] [address]- 3015 Jan, [facility] [place] [facility] [address] [id number] [place] [address]- 3923 Jan, [facility] [place] [facility] [address] [id number] [place] [address]- 7439 Jan, [facility] [place] [facility] [address] [id number] [place] [address]- 2427 Jan, [facility] [place] [facility] [address] [id number] [place] [address]- 8994 Jan, [facility] [place] [facility] [address] [id number] [place] [address]- 7369 Jan, [facility] [place] [facility] [address] [id number] [place] [address]- 7242 Dec, [facility] [place] [facility] [address] [id number] [place] [address]- 6693 Dec, [facility] [place] [facility] [address] [id number] [place] [address]- 1351 Dec, [facility] [place] [facility] [address] [id number] [place] [address]- 8291 Dec, [facility] [place] [facility] [address] [id number] [place] [address]- 9148 Dec, [facility] [place] [facility] [address] [id number] [place] [address]- 4844 Dec, [facility] [place] [facility] [address] [id number] [place] [address]- 6886 November, [facility] [place] [facility] [address] [id number] [place] [address]- 3201 November, [facility] [place] [facility] [address] [id number] [place] [address]- 2157 November, [facility] [place] [facility] [address] [id number] [place] [address]- 8630 November, [facility] [place] [facility] [address] [id number] [place] [address]- 2395 Oct, [facility] [place] [facility] [address] [id number] [place] [address]- 9835 Oct, [facility] [place] [facility] [address] [id number] [place] [address]- 9737 Sep, [facility] [place] [facility] [address] [id number] [place] [address]- 7867 Sep, [facility] [place] [facility] [address] [id number] [place] [address]- 1683 Sep, [facility] [place] [facility] [address] [id number] [place] [address]- 6092 Sep, [facility] [place] [facility] [address] [id number] [place] [address]- 3671 Sep, [facility] [place] [facility] [address] [id number] [place] 9514 Sep, [facility] [place] [facility] [address] [id number] [place] [address]- 5863 Sep, [facility] [place] [facility] [address] [id number] [place] [address]- 1021 Sep, [facility] [place] [facility] [address] [id number] [place] [address]- 4602 Aug, [facility] [place] [facility] [address] [id number] [place] [address]- 4296 Aug, [facility] [place] [facility] [address] [facility] [id number] [place] [address]- 0896 Aug, [facility] [place] [facility] [address] [id number] [place] [address]- 9073 Aug, [facility] [place] [facility] [address] [id number] [place] [address]- 0146 Aug, [facility] [place] [facility] [address] [facility]] [id number] [place] [address]- 0286 Aug, [facility] [place] [facility] [address] [facility]] [id number] [place] [address]- 4561 Aug, [facility] [place] [facility] [address] [facility]] [id number] [place] [address]- 9721 Aug, [facility] [place] [facility] [address] [facility]] [id number] [place] [address]- 1518 Jul, [facility] [place] [facility] [address] [facility]] [id number] [place] [address]- 2462 Jul, [facility] [place] [facility] [address] [facility] [id number] [place] [address]- 8668 Jul, [facility] [place] [facility] [address] [id number], [place] [address]- 3994 Jul, [facility] [place] [facility] [address] [id number], [place] [address]- 3296 Jul, [facility] [place] [facility] [address] [facility] [id number] [place] [address]- 5320 Jul, [facility] [place] [facility] [address] [facility] [id number], [place] [address]- 2514 Jul, [facility] [place] [facility] [address] [id number] [place] [address]- 9075 Jul, [facility] [place] [facility] [address] [id number] [place] 3497 Jun, [facility] [place] [facility] [address] [id number] [place] 3792 Jun, [facility] [place] [facility] [address] [id number] [place] [address]- 8630 Jun, [facility] [place] [facility] [address] [id number] [place] 6789 Jun, [facility] [place] [facility] [address] [id number] [place] [address]- 6534 May, [facility] [place] [facility] [address] [id number] [place] [address]- 0112 May, [facility] [place] [facility] [address] [id number] [place] [address]- 5608 May, [facility] [place] [facility] [address] [id number] [place] [address]- 1842 May, [facility] [place] [facility] [address] [id number] [place] [address]- 9567 May, [facility] [place] [facility] [address] [id number] [place] [address]- 4081 May, [facility] [place] [facility] [address] [id number] [place] [address]- 2072 May, [facility] [place] [facility] [address] [id number] [place] 8459 May, [facility] [place] [facility] [address] [id number] [place] [address] Apr, [facility] [place] [facility] [address] [id number] [place] [address] Apr, [facility] [place] [facility] [address] [id number] [place] [address] Apr, [facility] [place] [facility] [address] [id number] [place] [address] Apr, [facility] [place] [facility] [address] [id number] [place] [address] Apr, [facility] [place] [facility] [address] [id number] [place] [address] Apr, [facility] [place] [facility] [address] [id number] [place] [address] Apr, [facility] [place] [facility] [address] [id number] [place] [address] Apr, [facility] [place] [facility] [address] [id number] [place] [address] Apr, [facility] [place] [facility] [address] [id number] [place] [address] Apr, [facility] [place] [facility] [address] [id number], [place] [address] Apr, [facility] [place] [facility] [address] [id number] [place] [address] Mar, [facility] [place] [facility] [address] [id number], [place] [address] Feb, [facility] [place] [facility] [address] [id number], [place] [address] Feb, [facility] [place] [facility] [address] [id number], [place] [address] Feb, [facility] [place] [facility] [address] [id number] [place] [address] Jan, [facility] [place] [facility] [address] [id number], [place] [address] Dec, [facility] [place] [facility] [address] [id number] [place] [address] Dec, [facility] [place] [facility] [address] [id number] [place] [address] 14 Dec, 2012 [facility] [address] [id number] [place] [address] November, [facility] [address] [id number] [place] [address] November, [facility] [address] [id number] [place] [address] November, [facility] [address] [id number] [place] [address] Oct, [facility] [address] [id number] [place] [address] Oct, [facility] [address] [id number] [place] [address] Oct, [facility] [address] [id number] [place] [address] Sep, [facility] [address] [id number] [place] [address] Sep, [facility] [address] [id number] [place] [address] Sep, [facility] [address] [id number] [place] [address] Aug, [facility] [address] [id number] [place] [address] Jul, [facility] [address] [id number] [place] [address] Jul, [facility] [address] [id number] [place] [address] Jun, [facility] [address] [id number] [place] [address] Jun, [facility] [address] [id number] [place] [address] May, [facility] [place] [facility] [address] [id number] [place] [address] May, [facility] [place] [facility] [address] [id number] [place] [address] May, [facility] [place] [facility] [address] [id number] [place] [address] May, [facility] [place] [facility] [address] [id number] [place] [address] May, [facility] [place] [facility] [address] [id number] [place] [address] May, [facility] [place] [facility] [address] [id number] [place] [address] Apr, [facility] [place] [facility] [address] [id number] [place] [address] Feb, [facility] [place] [facility] [address] [id number], [place] [address] Dec, [facility] [place] [facility] [address] [id number] [place] [address] November, [facility] [place] [facility] [address] [id number] [place] [address] Oct, [facility] [place] [facility] [address] [id number] [place] [address] Oct, [facility] [place] [facility] [address] [id number], [place] [address] Oct, [facility] [place] [facility] [address] [id number] [place] [address] Sep, [facility] [place] [facility] [address] [id number], [place] [address] 14 Sep, 2011 [facility] [place] [facility] [address] [facility] [id number], [place] [address] 15 Aug, 2011 [facility] [place] [facility] [address] [id number], [place] [address] Jul, [facility] [address], [place] [address] Jul, [facility] [address], [place] [address] Jun, [facility] [address], [place] [address] Jun, [facility] [id number] [place] [address] May, [facility] [id number] [place] [address] May, [facility] [id number] [place] [address] Apr, [facility] [id number] [place] [address] Mar, [facility] [address] [id number], [place] [address] Jan, [facility] [address], [place] [address] Dec, [facility] [address], [place] [address] Jun, [facility] [address], [place] [address] Jun, [facility] [address], [place] [address] May, [facility] [address], [place] [address] May, IMMUNIZATIONS No Known Immunizations SOCIAL HISTORY Never Assessed REASON FOR VISIT BH f/u, Depression and anxiety. PLAN OF CARE Activity Details Follow Up prn Reason: VITAL SIGNS MEDICATIONS Unknown Medications RESULTS No Results PROCEDURES Procedure Date Ordered Result Body Site [facility]IS[facility] ESTAB PT Feb 04, 2017 Psychotherapy, patient &/family, 30 minutes, established patient Feb 04, 2017 INSTRUCTIONS MEDICATIONS ADMINISTERED No Known Medications [...] 05/19/17 Hospitalization History UTI - Hospital ED [facility] 05/31/17 Hospitalization History UTI 08-06-17
[2018-11-19] MEDS ORDERED: D5 LR IV SOLUTION 1,000 ML IV STA (07:46)
[2018-11-19] MEDS ORDERED: LIDOCAINE JELLY 2% 6 ML SYRINGE MM PRN (08:00)
[2018-11-19] MEDS ORDERED: MIDAZOLAM 2 MG/2 ML (VERSED) VIAL IVP ONE (08:00)
[2018-11-19] MEDS ORDERED: fentaNYL INJECTION 100 MCG/2 ML AMP IVP ONE (08:00)
[2018-11-19 08:55] VITALS: BP 154/83
[2018-11-19] MEDS ORDERED: MIDAZOLAM 2 MG/2 ML (VERSED) VIAL ONE (09:09)
[2018-11-19] MEDS ORDERED: fentaNYL INJECTION 100 MCG/2 ML AMP ONE (09:09)
--- NOTE | 2018-11-19 09:25 | Pre-Op Note & Conscious Sedat ---
Pre-Operative Progress Note H&P Reviewed The H&P was reviewed, patient examined and no changes noted. Date H&P Reviewed: November 19, 2018 Time H&P Reviewed: 09:15 Conscious Sedation Pre-Proced ASA Score 2 For ASA 3 and 4: Consider anesthesia and medical clearance. Also, for patients with a history of failed moderate sedation consider anesthesia. Airway Lungs Heart ASA score ASA 1: a normal healthy patient ASA 2: a patient with a mild systemic disease (mid diabetes, controlled hypertension, obesity ASA 3: a patient with a severe systemic disease that limits activity (angina , COPD, prior Myocardial infarction) ASA 4: a patient with an incapacitating disease that is a constant threat to life (CHF, renal failure) ASA 5: a moribund patient not expected to survive 24 hrs. (ruptured aneurysm) ASA 6: a declared brain- patient whose organs are being harvested. For emergent operations, add the letter E after the classification Mallampati Classification Grade 2 Sedation Plan Analgesia, Amnesia, Plan communicated to team members, Discussed options with patient/fam, Discussed risks with patient/fam The patient is an appropriate candidate to undergo the planned procedure, sedation, and anesthesia. The patient immediately re-assessed prior to indication. ELIO MORALES MD November 19, 2018 09:25
[2018-11-19 10:10] VITALS: BP 185/96
[2018-11-19] MEDS ORDERED: PSYL3.4P5 PO (10:33)
[2018-11-19 11:03] VITALS: BP 156/70
[2018-11-19 11:13] VITALS: BP 156/70
--- NOTE | 2018-11-19 16:29 | OPERATIVE REPORT ---
DATE OF SERVICE: 11/19/2018 COLONOSCOPY HISTORY AND PHYSICAL INDICATION FOR THE PROCEDURE: Screening colonoscopy. DESCRIPTION OF PROCEDURE: The patient was placed in left lateral decubitus position. Prior to undergoing colonoscopy, digital evaluation was performed. Anal sphincter tone was normal and the perianal reflexes intact. No abnormalities were noted on digital inspection of the anal canal or distal rectal vault; however, there was formed solid stool in the vault. The patient did undergo several enemas expelling formed stool. She was brought back to the endoscopy suite. The colonoscope was inserted in the rectum and under direct visualization advanced to the cecum. The cecum; however, was full of stool and there was solid stool present intermittently throughout the entire colon with prep judged to be of poor quality. There was minimal fluid; however, so the portions of colon not obscured by solid stool were well visualized. The patient had no evidence for diverticular disease. No evidence for neoplasia. There was one linear area of erythema on the distal rectum compatible with enema irritation. No fissure formation was noted and the patient denied any history of rectal pain with passage of stool. ASSESSMENT: No abnormalities were noted except for enema-related irritation and a poor quality prep for which the cecum was not visualized. There was no fluid in the colon suggesting the patient did not take much of her prep although she states she did. Suspect Parkinson's related constipation, likely aggravated by oxybutynin. The patient was advised to see if she could do without oxybutynin and we did send out Metamucil as the patient reports MiraLax is ineffective for her. She was advised to use a packet before breakfast and her evening meal with 6-8 ounces of water and give several weeks for maximum benefit. If she is still having to strain to pass hard stool, we would advocate a trial of Linzess 145 mcg daily and if not having the desired effect, increase it to 290 mcg daily. Considering Parkinson's disease and relatively poor performance status, I would not advocate future screening colonoscopy. Job ID: [id number] DocumentID: [id number] Dictated Date: 11/19/2018 10:49:43 Rehab Services Aide Date: 11/19/2018 16:28:14 Dictated By: ELIO MORALES MD [facility]
== END 2018-11-19 11:31 | disposition home or self-care (01) ==
LOC: ENDO 07:24
PROVIDERS: ATTEND Internal Medicine
DX: Z12.11 Encounter for screening for malignant neoplasm of colon (principal); K59.09 Other constipation; G20 Parkinson's disease; E11.9 Type 2 diabetes mellitus without complications; K21.9 Gastro-esophageal reflux disease without esophagitis; F32.9 Major depressive disorder, single episode, unspecified; N32.81 Overactive bladder; Z79.4 Long term (current) use of insulin; Z79.899 Other long term (current) drug therapy

== ENCOUNTER 2018-12-01 10:56 | Outpatient (RCR) | payer MEDICARE, OTHER, MEDICAID ==
[~2018-12-01 10:56] MED LIST changes: +PSYL3.4P5 PO
== END 2018-12-06 08:33 | disposition home or self-care (01) ==
PROVIDERS: ATTEND Orthopaedic Surgery
DX: S42.202D Unspecified fracture of upper end of left humerus, subsequent encounter for fracture with routine healing (principal); W22.8XXD Striking against or struck by other objects, subsequent encounter

== ENCOUNTER 2018-12-08 13:49 | Outpatient (RCR) | payer MEDICARE, OTHER, MEDICAID | END 2018-12-08 14:48 | disposition home or self-care (01) | PROVIDERS: ATTEND Psychiatry & Neurology Neurology | DX: S42.202D Unspecified fracture of upper end of left humerus, subsequent encounter for fracture with routine healing (principal); W22.8XXD Striking against or struck by other objects, subsequent encounter ==

== ENCOUNTER 2019-05-04 08:01 | Outpatient (RCR) | payer MEDICARE, OTHER, MEDICAID ==
[2019-04-28 10:30] VITALS: BP 127/69
[2019-04-28] MEDS: CEFEPIME 1,000 MG/SWFI 10 ML IV PUSH IV SCH ×4 (11:23→19:57)
[2019-04-28 19:27] VITALS: BP 153/67
[2019-04-29] MEDS: CEFEPIME 1,000 MG/SWFI 10 ML IV PUSH IV SCH ×4 (08:08→20:13)
[2019-04-29] MEDS: CATHETER FLUSH 10 ML SYR IV PRN ×2 (08:15→20:13)
[2019-04-29 08:16] VITALS: BP 123/65
[2019-04-29 20:51] VITALS: BP 108/61
[2019-04-30] MEDS: CEFEPIME 1,000 MG/SWFI 10 ML IV PUSH IV SCH ×4 (09:36→19:35)
[2019-04-30] MEDS: CATHETER FLUSH 10 ML SYR IV PRN (09:36)
[2019-04-30 09:40] VITALS: BP 118/66
[2019-04-30 20:41] VITALS: BP 127/72
[2019-05-01] MEDS: CEFEPIME 1,000 MG/SWFI 10 ML IV PUSH IV SCH ×4 (08:44→19:25)
[2019-05-01] MEDS: CATHETER FLUSH 10 ML SYR IV PRN (08:44)
[2019-05-01 08:55] VITALS: BP 110/67
[2019-05-01 19:31] VITALS: BP 100/65
[2019-05-02 08:15] VITALS: BP 125/73
[2019-05-02] MEDS: CEFEPIME 1,000 MG/SWFI 10 ML IV PUSH IV SCH ×4 (08:23→19:56)
[2019-05-02] MEDS: CATHETER FLUSH 10 ML SYR IV PRN ×2 (08:24→19:56)
[2019-05-02 19:54] VITALS: BP 134/64
[2019-05-03 08:20] VITALS: BP 110/70
[2019-05-03] MEDS: CEFEPIME 1,000 MG/SWFI 10 ML IV PUSH IV SCH ×4 (08:24→19:50)
[2019-05-03] MEDS: CATHETER FLUSH 10 ML SYR IV PRN ×2 (08:24→19:50)
--- NOTE | 2019-05-03 20:23 | NUR ---
Pt arrived to floor for abx treatment at 1940 and states she thinks her blood sugar is low. At 1952 it is 33 mg/dl. Pt requested a Coke and willy crackers to raise blood sugar. Glucose rechecked at 2011 - result is 106 mg/dl (pt's glucose machine shows 121 mg/dl). 2022: Pt states she is feeling much better at this time and feels that she is able to leave (Her skill worker is waiting for her downstairs to drive her home). Pt left floor via walker accompanied by 4th floor PCT.
[2019-05-03 22:20] VITALS: BP 159/75
[~2019-05-04] VITALS: Ht 163 cm; Wt 74.0 kg
[~2019-05-04 08:01] MED LIST changes: +CEFEPIME 1 GM (MAXIPIME) VIAL ONE; +OMEP40CA27 PO; +OXYB10TA2 PO; +WATER (STERILE) FOR INJECTION 10 ML ONE
[2019-05-04] MEDS: CEFEPIME 1,000 MG/SWFI 10 ML IV PUSH IV SCH ×4 (08:07→20:07)
[2019-05-04] MEDS: CATHETER FLUSH 10 ML SYR IV PRN ×2 (08:07→20:07)
[2019-05-04 08:19] VITALS: BP 121/66
[2019-05-04 20:08] VITALS: BP 137/68
== END 2019-07-27 | disposition home or self-care (01) ==
LOC: SDC 08:01
PROVIDERS: ATTEND Internal Medicine
DX: N39.0 Urinary tract infection, site not specified (principal)
CPT/HCPCS: 76937; 82962; 96374

== ENCOUNTER → 2019-05-16 | Outpatient (CLI) | payer MEDICARE, OTHER, MEDICAID ==
[~2019-05-16] MED LIST changes: -CEFEPIME 1 GM (MAXIPIME) VIAL ONE; -OMEP40CA27 PO; -OXYB10TA2 PO; -WATER (STERILE) FOR INJECTION 10 ML ONE
--- NOTE | 2019-05-16 12:12 | Diagnostic Imaging Report ---
PROCEDURE: US Gallbladder. TECHNIQUE: Multiple real-time grayscale images were obtained over the right upper quadrant in various projections. INDICATION: Nausea and vomiting. COMPARISON: 02/03/2015. FINDINGS: The liver is mildly large measuring 20 cm in length. Echogenicity of the liver is mildly increased. The gallbladder wall is within normal limits measuring 2.7 mm. No stones are seen. No pericholecystic fluid is seen. Sonographic Bennett sign is negative. There is no intrahepatic biliary dilatation. The common bile duct measures 5 mm in diameter. The pancreas is not well seen, mostly due to bowel gas. Imaged portions of the head are unremarkable. The IVC and aorta are not well seen. No ascites is seen. Main portal vein is hepatopetal. The right kidney is normal in size measuring 10 cm. There is an echogenic focus measuring 1 cm in diameter. This appears to have a small amount of shadowing present. IMPRESSION: 1. Mild hepatomegaly and fatty infiltration of the liver. 2. No cholelithiasis or evidence of cholecystitis. 3. Right nephrolithiasis. Dictated by: Dictated on workstation # [id number]
== END ==
LOC: RAD 07:50
PROVIDERS: ATTEND Internal Medicine
DX: K76.0 Fatty (change of) liver, not elsewhere classified (principal); N20.0 Calculus of kidney
CPT/HCPCS: 76705

== ENCOUNTER → 2019-05-24 | Outpatient (CLI) | payer MEDICARE, OTHER, MEDICAID ==
[~2019-05-24] MED LIST changes: +CATHETER FLUSH 10 ML SYR IV PRN
--- NOTE | 2019-05-24 15:50 | Diagnostic Imaging Report ---
INDICATION: Nausea and vomiting. TECHNIQUE: Patient was administered 5.5 mCi technetium 99m Choletec intravenously and imaging over the abdomen was performed. At 1 hour, patient ingested 8 ounces of Ensure and a gallbladder ejection fraction was calculated. FINDINGS: There is homogeneous uptake of activity by the liver with prompt excretion of activity into the common duct and gallbladder. Normal passage of activity into the small bowel is seen. Gallbladder ejection fraction is normal at 76%. IMPRESSION: Normal HIDA scan and gallbladder ejection fraction. Dictated by: Dictated on workstation # [id number]
== END ==
LOC: CARD 12:55
PROVIDERS: ATTEND Internal Medicine
DX: N20.0 Calculus of kidney (principal); H69.82 Other specified disorders of Eustachian tube, left ear; M65.342 Trigger finger, left ring finger
CPT/HCPCS: 78227

== ENCOUNTER → 2019-11-25 | Outpatient (CLI) | payer MEDICARE, OTHER, MEDICAID ==
[~2019-11-25] VITALS: Ht 160 cm; Wt 79.0 kg
[~2019-11-25] MED LIST changes: -HYDR-3812 PO; -HYDR-3820 PO; +OMEP40CA27 PO; +OXYB10TA29 PO; +REGADENOSON 0.4 MG/5 ML SYR (LEXISCAN) IV ONE; -ROPI2TAB4; +ROPI2TAB6
[2019-11-25 08:11] VITALS: BP 141/80
[2019-11-25 08:12] VITALS: BP 147/74
--- NOTE | 2019-11-26 14:24 | Cardiology Stress Test Report ---
Stress Test Report Type of NM Stress Test: Test Type: LEXISCAN 0.4MG/5ML Date of Procedure/Referring: Date of Procedure: November 25, 2019 PCP Zeb Swann DO Admitting Physician Zeb Swann DO Indications: Fatigue. Baseline Heart Rate: 78 Baseline Blood Pressure: Blood Pressure Systolic: 147 Blood Pressure Diastolic: 74 Baseline EKG: Baseline EKG: Sinus rhythm Summary & Conclusion: Summary: The patient was brought to the stress lab after informed consent was taken. Stress test was performed according to the Lexiscan protocol. 0.4 mg of IV Lexiscan was given. Please review Dr. Swann's report for the stress test portion. 9.90 mCi of Myoview were given for rest imaging and 32.5 mCi of Myoview given for stress imaging. Transient ischemic dilatation score 1.13, EF 75 percent. Normal wall motion. Normal myocardial perfusion imaging during rest and stress. Conclusion: Normal LV function with no wall motion abnormalities. Normal myocardial perfusion imaging during rest and stress. Dhruv WATERMAN MD November 26, 2019 14:24
== END ==
LOC: CARD 06:39
PROVIDERS: ATTEND Internal Medicine
DX: R53.83 Other fatigue (principal)
CPT/HCPCS: 78452; 93017

== ENCOUNTER → 2020-01-19 | Outpatient (CLI) | payer MEDICARE, OTHER, MEDICAID ==
[~2020-01-19] MED LIST changes: -CATHETER FLUSH 10 ML SYR IV PRN; -REGADENOSON 0.4 MG/5 ML SYR (LEXISCAN) IV ONE
== END ==
LOC: LABNPT 08:14
PROVIDERS: ATTEND Internal Medicine
DX: Z20.828 Contact with and (suspected) exposure to other viral communicable diseases (principal)
CPT/HCPCS: 87635

== ENCOUNTER 2020-03-02 13:45 | Emergency (ER) | payer MEDICARE, OTHER, MEDICAID ==
[~2020-03-02] VITALS: Ht 160 cm; Wt 75.0 kg
--- NOTE | 2020-03-02 14:29 | ED GU-Female ---
General Chief Complaint: - Urinary Stated Complaint: UTI Source: patient Exam Limitations: no limitations (SOFY AVINA APRN) History of Present Illness Date Seen by Provider: Mar 02, 2020 Time Seen by Provider: 14:28 (SOFY AVINA APRN) Initial Comments This is a 69 y/o F here with ~2wk of pain and burning with urination and frequency. Denies any F, chills, abd pain, hematuria, or flank pain. Pt states she has a "long hx of antibiotic-resistant UTIs". She contacted Dr. Lawson on Thursday regarding her sx, who ordered outpt UA and Cx. She was instru cted to contact her PCP, Dr. Swann for ABX Rx but she states she could not get an appointment setup as "Dr. Swann is out of town. States her last ABX use was 3 weeks ago (Ciprofloxacin). No further complaints at this time. Timing/Duration: week (2) Severity/Quality: moderate Location: other (pain with urination) Radiation: none Activities at Onset: none Prior Genitourinary Problems: similar symptoms Modifying Factors: Worsens With Urinating Associated Symptoms: No abdominal pain, No diaphoresis; dysuria; No fever/chills, No loss of bladder control; nausea/vomiting (N, no vomiting ), polyuria, urinary frequency (JEFF LEE) Allergies and Home Medications Allergies Coded Allergies: Nitrofurantoin Macrocrystal (Unverified Allergy, Unknown, RASH, 11/12/18) Penicillins (Unverified Allergy, Unknown, RASH, pt has received Ceftriaxone & Cefazolin w/o issue, 11/12/18) mushroom (Verified Allergy, Unknown, RASH, 11/12/18) egg (Unverified Adverse Reaction, Unknown, 11/12/18) Home Medications Aripiprazole 10 Mg Tablet, 10 MG PO DAILY, (Reported) Ciprofloxacin 250 Mg/5 Ml Taniya.mc.rec, 250 MG PO DAILY, (Reported) Fluoxetine HCl 40 Mg Capsule, 40 MG PO BID, (Reported) Insulin Glargine,Hum.rec.anlog 100 Unit/1 Ml Vial, 20 UNIT SQ HS, (Reported) Insulin Lispro 100 Unit/1 Ml Insuln.pen, 8 UNIT SQ AC, (Reported) Metformin HCl 500 Mg Tablet, 500 MG PO BID, (Reported) Omeprazole 40 Mg Capsule.dr, 40 MG PO DAILY, (Reported) Psyllium Husk/Aspartame 3.4 Gm Powd.pack, 3.4 GM PO BIDAC Prescribed by: ELIO MORALES on 11/19/18 1033 Ropinirole HCl 4 Mg Tab.er.24h, 4 MG PO HS, (Reported) Patient Home Medication List Home Medication List Reviewed: Yes (SOFY AVINA APRN) Review of Systems Review of Systems Constitutional: No chills, No diaphoresis, No fever Respiratory: no symptoms reported Cardiovascular: no symptoms reported Gastrointestinal: no symptoms reported Genitourinary: burning, dysuria, frequency; denies flank pain, denies hematuria, denies incontinence; pain, urgency Musculoskeletal: no symptoms reported (JEFF LEE) Past Xonizze-Iupley-Vvykgp Hx Patient Social History 2nd Hand Smoke Exposure: No Recent Foreign Travel: No Contact w/Someone Who Travel: No Recent Hopitalizations: Yes ([facility] 10/2018-UTI) (SOFY AVINA APRN) Immunizations Up To Date Tetanus Booster (TDap): Unknown PED Vaccines UTD: No (SOFY AVINA APRN) Seasonal Allergies Seasonal Allergies: Yes (SOFY AVINA APRN) Past Medical History Surgeries: Yes (LEFT KNEE-FX) Bladder Surgery, Hysterectomy, Orthopedic, Tonsillectomy Respiratory: No Cardiac: No Neurological: Yes Parkinson's Disease Reproductive Disorders: No Sexually Transmitted Disease: No HIV/AIDS: No Genitourinary: Yes Kidney Stones, UTI-Chronic Gastrointestinal: Yes Gastroesophageal Reflux, Chronic Constipation Musculoskeletal: Yes Arthritis Endocrine: Yes Diabetes, Non-Insulin dep HEENT: Yes (READING GLASSES, DENTURES) Loss of Vision: Bilateral Cancer: No Psychosocial: Yes Anxiety, Depression Integumentary: No Blood Disorders: No Adverse Reaction/Blood Tranf: No (N/A) (SOFY AVINA APRN) Family Medical History Patient reports no known family medical history. No Pertinent Family Hx (SOFY AVINA APRN) Physical Exam Vital Signs Capillary Refill : (SOFY AVINA APRN) Height, Weight, BMI Height: 5'4.00" Weight: 154lbs. 0.0oz. 69.235004iu; 30.85 BMI Method:Stated (SOFY AVINA APRN) General Appearance: WD/WN, no apparent distress Cardiovascular: normal peripheral pulses, regular rate, rhythm, no edema, no gallop, no JVD, no murmur Respiratory: chest non-tender, lungs clear, normal breath sounds Gastrointestinal: normal bowel sounds, non tender, soft Back: normal inspection, no CVA tenderness Neurologic/Psychiatric: alert, oriented x 3 ([facility]) Progress/Results/Core Measures Suspected Sepsis SIRS Temperature: Pulse: Respiratory Rate: Laboratory Tests 03/02/20 14:45: White Blood Count 13.1H Blood Pressure / Mean: Laboratory Tests 03/02/20 14:45: Creatinine 1.31H, Platelet Count 457H (SOFY AVINA APRN) Results/Orders Vital Signs/I&O Capillary Refill : (SOFY AVINA APRN) Departure Communication (Admissions) 1520-I've seen the patient along with Genet and agree with the plan of care. I've reviewed her urine culture from [facility] labs showing pseudomonas 10-30,000 CFU with sensitivity to Amikacin and cefepime gentamicin meropenem ceftazidime tobramycin and Zosyn. Resistant to Levaquin and Cipro. Discussed with hospitalist, the patient would prefer outpatient treatment. As such we'll start an IV leaving it in place with her to return daily for 2 g of IV cefepime for 5 days. Because of kidney function today we'll give one-time dose 1 L of LR. (SOFY AVINA APRN) Impression Primary Impression: Urinary tract infection Qualified Codes: N30.00 - Acute cystitis without hematuria Disposition: HOME, SELF-CARE Condition: Stable Departure-Patient Inst. Decision time for Depature: 15:21 (SOFY AVINA APRN) Referrals: RIVKA SWANN DO (PCP/Family) Primary Care Physician Patient Instructions: Urinary Tract Infection, Adult (DC) Add. Discharge Instructions: 1. Return to ER daily for 5 days (four more after today) for IV antibiotics. All discharge instructions reviewed with patient and/or family. Voiced understanding. SOFY AVINA APRN Mar 02, 2020 14:29 JEFF LEE [facility] Mar 02, 2020 14:35
[2020-03-02 14:35] LABS: BILIRUBIN,URINE NEGATIVE (NEGATIVE); CLARITY,URINE CLEAR; COLOR,URINE YELLOW; GLUCOSE, URINE (UA) NEGATIVE (NEGATIVE); KETONES,URINE NEGATIVE (NEGATIVE); LEUKOCYTE ESTERASE ,URINE 3+ (NEGATIVE); NITRITE,URINE POSITIVE (NEGATIVE); PROTEIN,URINE NEGATIVE (NEGATIVE)
[2020-03-02 14:44] LABS: BACTERIA,URINE FEW /HPF; WBC,URINE TNTC /HPF
[2020-03-02 14:50] LABS: BASOPHILS # (AUTO) 0.1 10^3/uL (0.0-0.1); BASOPHILS % (AUTO) 0 % (0-10); EOSINOPHILS # (AUTO) 0.4 10^3/uL (0.0-0.3); EOSINOPHILS % (AUTO) 3 % (0-10); HEMATOCRIT 35 % (35-52); HEMOGLOBIN 11.2 G/DL (11.5-16.0); LYMPHOCYTES # (AUTO) 2.1 X 10^3 (1.0-4.0); LYMPHOCYTES % (AUTO) 16 % (12-44); MEAN CORPUSCULAR HEMOGLOBIN 30 PG (25-34); MEAN CORPUSCULAR HGB CONC 32 G/DL (32-36); MEAN CORPUSCULAR VOLUME 94 FL (80-99); MONOCYTES # (AUTO) 0.9 X 10^3 (0.0-1.0); MONOCYTES % (AUTO) 7 % (0-12); NEUTROPHILS # (AUTO) 9.6 X 10^3 (1.8-7.8); NEUTROPHILS % (AUTO) 73 % (42-75); PLATELET COUNT 457 10^3/uL (130-400); RED CELL DISTRIBUTION WIDTH 14.6 % (10.0-14.5); WHITE BLOOD COUNT 13.1 10^3/uL (4.3-11.0)
[2020-03-02 15:01] LABS: POTASSIUM 4.5 MMOL/L (3.6-5.0)
[2020-03-02 15:02] LABS: CALCIUM 9.4 MG/DL (8.5-10.1)
[2020-03-02 15:06] LABS: CREATININE SERUM 1.31 MG/DL (0.60-1.30)
[2020-03-02] MEDS ORDERED: CEFEPIME INJECTION 2,000 MG in WATER (STERILE) FOR INJECTION 20 ML IV ONE (15:30)
[2020-03-02] MEDS ORDERED: LACTATED RINGERS 1,000 ML IV SCH (15:30)
[2020-03-02 16:38] VITALS: BP 116/67
== END 2020-03-02 16:38 | disposition home or self-care (01) ==
LOC: EDUNIT# 13:45 → ER 13:46
DX: N39.0 Urinary tract infection, site not specified (principal); E11.9 Type 2 diabetes mellitus without complications; G20 Parkinson's disease; K21.9 Gastro-esophageal reflux disease without esophagitis; F41.9 Anxiety disorder, unspecified; F32.9 Major depressive disorder, single episode, unspecified; K59.09 Other constipation; Z88.0 Allergy status to penicillin; Z88.1 Allergy status to other antibiotic agents; Z79.4 Long term (current) use of insulin
CPT/HCPCS: 36415; 80048; 81000; 85025; 87077; 87088; 87186

== ENCOUNTER 2020-03-06 13:05 | Outpatient (RCR) | payer MEDICARE, OTHER ==
[2020-03-03 16:03] VITALS: BP 111/58
[2020-03-03] MEDS: CEFEPIME 2,000 MG/SWFI 20 ML IV PUSH IV SCH ×2 (16:40)
[2020-03-04] MEDS: CEFEPIME 2,000 MG/SWFI 20 ML IV PUSH IV SCH ×2 (15:50)
[2020-03-05] MEDS: CEFEPIME 2,000 MG/SWFI 20 ML IV PUSH IV SCH ×2 (15:28)
[2020-03-05 15:47] VITALS: BP 109/57
[~2020-03-06] VITALS: Ht 160 cm
[2020-03-06 09:02] VITALS: BP 109/57
[2020-03-06] MEDS: CEFEPIME 2,000 MG/SWFI 20 ML IV PUSH IV SCH ×2 (13:14)
[2020-03-06 13:30] VITALS: BP 129/62
== END 2020-03-06 13:30 | disposition home or self-care (01) ==
LOC: 4THo 13:05
PROVIDERS: ATTEND Nurse Practitioner Family
DX: N39.0 Urinary tract infection, site not specified (principal)
CPT/HCPCS: 96374

== ENCOUNTER 2020-03-16 11:04 | Emergency (ER) | payer MEDICARE, OTHER ==
[~2020-03-16] VITALS: Ht 134.6 cm; Wt 76.1 kg
[2020-03-16 11:18] VITALS: BP 134/68
[2020-03-16 11:24] LABS: BILIRUBIN,URINE NEGATIVE (NEGATIVE); CLARITY,URINE CLEAR; COLOR,URINE YELLOW; GLUCOSE, URINE (UA) NEGATIVE (NEGATIVE); KETONES,URINE NEGATIVE (NEGATIVE); LEUKOCYTE ESTERASE ,URINE 3+ (NEGATIVE); NITRITE,URINE NEGATIVE (NEGATIVE); PROTEIN,URINE TRACE (NEGATIVE)
--- NOTE | 2020-03-16 11:30 | ED GU-Female ---
General Stated Complaint: UTI Source: patient Exam Limitations: no limitations History of Present Illness Date Seen by Provider: Mar 16, 2020 Time Seen by Provider: 11:17 Initial Comments Burning the patient presents ER by private conveyance with chief complaint of a couple days progressively worsening burning with urination. She was on some kind of cephalosporin last week for UTI. She said the symptoms got better while she is on antibiotic and came back afterwards. No discharge fevers chills nausea vomiting or diarrhea. She is a patient of Dr. Jolly. The urinalysis was done at [facility] [place] lab. Allergies and Home Medications Allergies Coded Allergies: Nitrofurantoin Macrocrystal (Unverified Allergy, Unknown, RASH, 11/12/18) Penicillins (Unverified Allergy, Unknown, RASH, pt has received Ceftriaxone & Cefazolin w/o issue, 11/12/18) mushroom (Verified Allergy, Unknown, RASH, 11/12/18) egg (Unverified Adverse Reaction, Unknown, 11/12/18) Home Medications Aripiprazole 10 Mg Tablet, 10 MG PO DAILY, (Reported) Ciprofloxacin 250 Mg/5 Ml Taniya.mc.rec, 250 MG PO DAILY, (Reported) Fluoxetine HCl 40 Mg Capsule, 40 MG PO BID, (Reported) Insulin Glargine,Hum.rec.anlog 100 Unit/1 Ml Vial, 20 UNIT SQ HS, (Reported) Insulin Lispro 100 Unit/1 Ml Insuln.pen, 8 UNIT SQ AC, (Reported) Metformin HCl 500 Mg Tablet, 500 MG PO BID, (Reported) Omeprazole 40 Mg Capsule.dr, 40 MG PO DAILY, (Reported) Psyllium Husk/Aspartame 3.4 Gm Powd.pack, 3.4 GM PO BIDAC Prescribed by: ELIO MORALES on 11/19/18 1033 Ropinirole HCl 4 Mg Tab.er.24h, 4 MG PO HS, (Reported) Patient Home Medication List Home Medication List Reviewed: Yes Review of Systems Review of Systems Constitutional: No chills, No diaphoresis EENTM: No hearing loss, No ear pain Respiratory: No cough, No short of breath Cardiovascular: No chest pain, No edema Gastrointestinal: No abdominal pain, No constipation, No diarrhea Genitourinary: burning; denies discharge; dysuria Musculoskeletal: No back pain, No joint pain Skin: No pruritus, No rash All Other Systemes Reviewed Negative Unless Noted: Yes Past Eoyfflm-Mnslnl-Lewwbh Hx Patient Social History Alcohol Use: Denies Use Recreational Drug Use: No Smoking Status: Never a Smoker 2nd Hand Smoke Exposure: No Recent Foreign Travel: No Contact w/Someone Who Travel: No Recent Hopitalizations: No Immunizations Up To Date Tetanus Booster (TDap): Unknown PED Vaccines UTD: No Seasonal Allergies Seasonal Allergies: No Past Medical History Surgeries: Yes Hysterectomy, Tonsillectomy Respiratory: No Cardiac: No Neurological: No Parkinson's Disease Reproductive Disorders: No 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 No Pertinent Family Hx Physical Exam Vital Signs Vital Signs - First Documented 03/16/20 11:18 Temp 36.5 Pulse 81 Resp 19 B/P (MAP) 134/68 (90) O2 Delivery Room Air Capillary Refill : Height, Weight, BMI Height: 5'4.00" Weight: 154lbs. 0.0oz. 69.421806kr; 29.37 BMI Method:Stated General Appearance: WD/WN, no apparent distress HEENT: PERRL/EOMI, pharynx normal Neck: full range of motion, normal inspection Cardiovascular: normal peripheral pulses, regular rate, rhythm Respiratory: no respiratory distress, no accessory muscle use Gastrointestinal: normal bowel sounds, non tender Extremities: normal range of motion, non-tender, normal inspection Neurologic/Psychiatric: alert, normal mood/affect, oriented x 3 Skin: normal color, warm/dry Progress/Results/Core Measures Suspected Sepsis SIRS Temperature: Pulse: Respiratory Rate: Blood Pressure / Mean: Results/Orders Lab Results Laboratory Tests Test 03/16/20 11:19 Range/Units Urine Color YELLOW Urine Clarity CLEAR Urine pH 6.0 5-9 Urine Specific [place] <=1.005 1.016-1.022 Urine Protein TRACE H NEGATIVE Urine Glucose (UA) NEGATIVE NEGATIVE Urine Ketones NEGATIVE NEGATIVE Urine Nitrite NEGATIVE NEGATIVE Urine Bilirubin NEGATIVE NEGATIVE Urine Urobilinogen 0.2 < = 1.0 MG/DL Urine Leukocyte Esterase 3+ H NEGATIVE Urine RBC (Auto) TRACE-I NEGATIVE Urine RBC NONE /HPF Urine WBC TNTC H /HPF Urine Squamous Epithelial Cells 5-10 /HPF Urine Crystals NONE /LPF Urine Bacteria MODERATE H /HPF Urine Casts NONE /LPF Urine Mucus NEGATIVE /LPF Urine Culture Indicated YES My Orders Orders - THADDEUS LEACH Ua Culture If Indicated (03/16/20 11:05) Urine Culture (03/16/20 11:19) Vital Signs/I&O 03/16/20 11:18 Temp 36.5 Pulse 81 Resp 19 B/P (MAP) 134/68 (90) O2 Delivery Room Air Capillary Refill : Progress Note : Time: 11:30 Progress Note UA. Aseptic vital signs Urine culture from February 2020 showed pseudomonas aeruginosa's that was resistant to levofloxacin but otherwise pansensitive. Departure Impression Primary Impression: UTI (urinary tract infection) Qualified Codes: N30.00 - Acute cystitis without hematuria Disposition: HOME, SELF-CARE Condition: Stable Departure-Patient Inst. Decision time for Depature: 12:10 Referrals: RIVKA PAGE DO (PCP/Family) Primary Care Physician Patient Instructions: Urinary Tract Infection, Adult (DC) Add. Discharge Instructions: Drink plenty of fluids. Bactrim one tablet twice a day with food for 7 days. Return to the nearest ER should you experience fever, intractable nausea and vomiting or other worrisome symptoms. Scripts Sulfamethoxazole/Trimethoprim (Bactrim Ds Tablet) 1 Each Tablet 1 EACH PO BID for 7 Days, #14 TAB 0 Refills Prov: THADDEUS LEACH 03/16/20 THADDEUS LEACH Mar 16, 2020 11:30
[2020-03-16 11:33] LABS: BACTERIA,URINE MODERATE /HPF; WBC,URINE TNTC /HPF
[2020-03-16] MEDS ORDERED: SULF1TAB35 PO (12:11)
== END 2020-03-16 12:24 | disposition home or self-care (01) ==
LOC: EDUNIT# 11:04 → ER 11:05
DX: N39.0 Urinary tract infection, site not specified (principal); G20 Parkinson's disease; K21.9 Gastro-esophageal reflux disease without esophagitis; K59.09 Other constipation; E11.9 Type 2 diabetes mellitus without complications; F41.9 Anxiety disorder, unspecified; F32.9 Major depressive disorder, single episode, unspecified; Z88.1 Allergy status to other antibiotic agents; Z88.0 Allergy status to penicillin; Z79.4 Long term (current) use of insulin
CPT/HCPCS: 81000; 82962; 87077; 87088; 87186; 99282

== ENCOUNTER 2020-03-31 09:06 | Outpatient (RCR) | payer MEDICARE, OTHER ==
--- NOTE | 2020-03-25 17:25 | NUR ---
PT ARRIVED FOR OUTPATIENT AT 1725. PT TO RECEIVE A CEFEPIME IM INJECTION. PHARMACY HAD ALREADY LEFT THE FACILITY FOR THE DAY. THIS RN, AFTER RESEARCH, OVERRODE 1 GM CEFEPIME AND 2 ML LIDOCAINE IN OMNICELL. PT WAS GIVEN IM INJECTION OF 1 GM CEFEPIME DILUTED WITH 2 MLS LIDOCAINE IN LEFT VASTUS LATERALIS. PT TOLERATED INJECTION WELL. PT IS TO RETURN TO [facility] TOMORROW AND RECEIVED SAME INJECTION X 7 DAYS PER ORDERS.
[2020-03-25 17:40] VITALS: BP 103/69
[2020-03-26] MEDS: CEFEPIME 1 GM (MAXIPIME) VIAL IM SCH (14:46)
[2020-03-26 14:55] VITALS: BP 117/60
[2020-03-27] MEDS: WATER (STERILE) FOR INJ 10 ML BTL IJ PRN (13:40)
[2020-03-27] MEDS: CEFEPIME 1 GM (MAXIPIME) VIAL IM SCH (13:40)
[2020-03-27 13:50] VITALS: BP 114/60
[2020-03-28 13:00] VITALS: BP 106/63
[2020-03-28] MEDS: WATER (STERILE) FOR INJ 10 ML BTL IJ PRN (13:32)
[2020-03-28] MEDS: CEFEPIME 1 GM (MAXIPIME) VIAL IM SCH (13:32)
[2020-03-29] MEDS: CEFEPIME 1 GM (MAXIPIME) VIAL IM SCH (15:27)
[2020-03-29] MEDS: WATER (STERILE) FOR INJ 10 ML BTL IJ PRN (15:27)
[2020-03-29 15:30] VITALS: BP 115/62
[2020-03-30 12:58] VITALS: BP 108/58
[2020-03-30] MEDS: WATER (STERILE) FOR INJ 10 ML BTL IJ PRN (13:13)
[2020-03-30] MEDS: CEFEPIME 1 GM (MAXIPIME) VIAL IM SCH (13:14)
[~2020-03-31] VITALS: Ht 160 cm
[~2020-03-31 09:06] MED LIST changes: +CEFEPIME 1 GM (MAXIPIME) VIAL ONE; +CEFEPIME INJECTION 1,000 MG in NS (IVPB) 50 ML IM SCH; +LIDOCAINE PF 1% 2 ML AMP ONE; +SULF1TAB35 PO; +WATER (STERILE) FOR INJ 10 ML BTL IJ PRN
[2020-03-31] MEDS: CEFEPIME 1 GM (MAXIPIME) VIAL IM SCH (09:14)
[2020-03-31 09:15] VITALS: BP 117/60
== END 2020-03-31 09:15 | disposition home or self-care (01) ==
LOC: SDC 09:06
PROVIDERS: ATTEND Nurse Practitioner Family
DX: N39.0 Urinary tract infection, site not specified (principal)
CPT/HCPCS: 96372

== ENCOUNTER 2020-06-12 19:46 | Emergency (ER) | payer MEDICARE, OTHER ==
[~2020-06-12] VITALS: Ht 157 cm; Wt 77.0 kg
[~2020-06-12 19:46] MED LIST changes: -CEFEPIME 1 GM (MAXIPIME) VIAL ONE; -CEFEPIME INJECTION 1,000 MG in NS (IVPB) 50 ML IM SCH; -LIDOCAINE PF 1% 2 ML AMP ONE; -WATER (STERILE) FOR INJ 10 ML BTL IJ PRN
--- NOTE | 2020-06-12 21:13 | NUR ---
PT STATED THAT HE WAS CONCERNED PT WILL GO INTO DIABETIC SHOCK. UPDATED SOFY AVINA APRN WITH CONCERN.
--- NOTE | 2020-06-12 21:39 | ED GU-Female ---
General Stated Complaint: URINARY CATHETER PROBLEMS Source: patient Exam Limitations: no limitations History of Present Illness Date Seen by Provider: Jun 12, 2020 Time Seen by Provider: 21:39 Initial Comments To ER with c/o leaking around her catheter. Timing/Duration: just prior to arrival Allergies and Home Medications Allergies Coded Allergies: Nitrofurantoin Macrocrystal (Unverified Allergy, Unknown, RASH, 11/12/18) Penicillins (Unverified Allergy, Unknown, RASH, pt has received Ceftriaxone & Cefazolin w/o issue, 11/12/18) mushroom (Verified Allergy, Unknown, RASH, 11/12/18) egg (Unverified Adverse Reaction, Unknown, 11/12/18) Home Medications Aripiprazole 10 Mg Tablet, 10 MG PO DAILY, (Reported) Ciprofloxacin 250 Mg/5 Ml Taniya.mc.rec, 250 MG PO DAILY, (Reported) Fluoxetine HCl 40 Mg Capsule, 40 MG PO BID, (Reported) Insulin Glargine,Hum.rec.anlog 100 Unit/1 Ml Vial, 20 UNIT SQ HS, (Reported) Insulin Lispro 100 Unit/1 Ml Insuln.pen, 8 UNIT SQ AC, (Reported) Metformin HCl 500 Mg Tablet, 500 MG PO BID, (Reported) Omeprazole 40 Mg Capsule.dr, 40 MG PO DAILY, (Reported) Psyllium Husk/Aspartame 3.4 Gm Powd.pack, 3.4 GM PO BIDAC Prescribed by: ELIO MORALES on 11/19/18 1033 Ropinirole HCl 4 Mg Tab.er.24h, 4 MG PO HS, (Reported) Sulfamethoxazole/Trimethoprim 1 Each Tablet, 1 EACH PO BID Prescribed by: THADDEUS LEACH on 03/16/20 1211 Past Hljlyvh-Ealrpy-Dropyi Hx Patient Social History 2nd Hand Smoke Exposure: No Recent Foreign Travel: No Contact w/Someone Who Travel: No Recent Hopitalizations: No Immunizations Up To Date Tetanus Booster (TDap): Unknown PED Vaccines UTD: No Seasonal Allergies Seasonal Allergies: No Past Medical History Surgeries: Yes Hysterectomy, Orthopedic, Tonsillectomy Respiratory: No Cardiac: No Neurological: No Parkinson's Disease 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 No Pertinent Family Hx Physical Exam Vital Signs Vital Signs - First Documented 06/12/20 21:40 Temp 36.8 Pulse 84 Resp 18 B/P (MAP) 153/70 (97) Pulse Ox 98 O2 Delivery Room Air Capillary Refill : Height, Weight, BMI Height: 5'4.00" Weight: 154lbs. 0.0oz. 69.495477ey; 42.00 BMI Method:Stated Progress/Results/Core Measures Suspected Sepsis SIRS Temperature: Pulse: Respiratory Rate: Blood Pressure / Mean: Results/Orders Vital Signs/I&O 06/12/20 06/12/20 21:40 22:17 Temp 36.8 36.8 Pulse 84 84 Resp 18 18 B/P (MAP) 153/70 (97) 153/70 (97) Pulse Ox 98 98 O2 Delivery Room Air Capillary Refill : Departure Communication (Admissions) 3660-Collado removed by RN and replaced by RN. Impression Primary Impression: Collado catheter problem Disposition: HOME, SELF-CARE Condition: Stable Departure-Patient Inst. 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
[2020-06-12 22:17] VITALS: BP 153/70
== END 2020-06-12 22:17 | disposition home or self-care (01) ==
LOC: EDUNIT# 19:46 → ER 19:48
DX: T83.038A Leakage of other urinary catheter, initial encounter (principal); E11.9 Type 2 diabetes mellitus without complications; K21.9 Gastro-esophageal reflux disease without esophagitis; F32.9 Major depressive disorder, single episode, unspecified; G20 Parkinson's disease; Z88.0 Allergy status to penicillin; Z88.8 Allergy status to other drugs, medicaments and biological substances; Z79.84 Long term (current) use of oral hypoglycemic drugs
CPT/HCPCS: 99282

== ENCOUNTER → 2020-10-09 | Outpatient (CLI) | payer MEDICARE, MEDICAID ==
--- NOTE | 2020-10-09 16:35 | Diagnostic Imaging Report ---
INDICATION: Pelvis and hip pain. TIME OF EXAM 12:07 PM FINDINGS: AP view of the pelvis and 2 views of the right hip were obtained. Femoral acetabular alignment is normal bilaterally. There is some spurring of the superolateral acetabula bilaterally. Both femoral heads and necks appear to be intact without evidence of fracture. Rami are intact. SI joints are non-widened. IMPRESSION: There are degenerative changes of the bilateral hips. No acute bony abnormality is detected. Dictated by: Dictated on workstation # [id number]
== END ==
LOC: RAD 11:47
PROVIDERS: ATTEND Nurse Practitioner Family
DX: M16.0 Bilateral primary osteoarthritis of hip (principal); M99.03 Segmental and somatic dysfunction of lumbar region; M99.04 Segmental and somatic dysfunction of sacral region

== ENCOUNTER 2020-11-27 10:26 | Outpatient (RCR) | payer MEDICARE, MEDICAID, OTHER | END 2020-11-30 15:03 | disposition home or self-care (01) | PROVIDERS: ATTEND Nurse Practitioner Family | DX: M54.31 Sciatica, right side (principal) ==

== ENCOUNTER 2021-02-03 19:42 | Emergency (ER) | payer MEDICARE, OTHER, MEDICAID ==
[~2021-02-03] VITALS: Ht 172.7 cm; Wt 71.0 kg
[~2021-02-03 19:42] MED LIST changes: -ARIP10TA17 PO; +ARIP10TA55 PO; -OMEP40CA27 PO; +OMEP40CA6 PO; -SULF1TAB35 PO; +SULF1TAB38 PO
[2021-02-03 22:02] LABS: BILIRUBIN,URINE NEGATIVE (NEGATIVE); CLARITY,URINE CLEAR; COLOR,URINE YELLOW; GLUCOSE, URINE (UA) NEGATIVE (NEGATIVE); KETONES,URINE NEGATIVE (NEGATIVE); LEUKOCYTE ESTERASE ,URINE 2+ (NEGATIVE); NITRITE,URINE NEGATIVE (NEGATIVE); PROTEIN,URINE NEGATIVE (NEGATIVE)
[2021-02-03 22:23] LABS: BACTERIA,URINE MODERATE /HPF; RBC,URINE 0-2 /HPF; WBC,URINE 50-100 /HPF
[2021-02-03] MEDS ORDERED: RX-ONDANSETRON 4 MG ODT (ZOFRAN) PPK #4 PO STA (22:34)
[2021-02-03] MEDS ORDERED: CEFD300C3 PO (22:38)
[2021-02-03] MEDS ORDERED: ONDA4TAB11 PO (22:38)
--- NOTE | 2021-02-03 22:38 | ED GI ---
General Chief Complaint: Abdominal/GI Problems Stated Complaint: VOMITING Nursing Triage Note: Pt ambulatory into ER stating she has Vomited 4x's since yesterday. Pt states that she feels fine now, and denies other symptoms. Pt states that her made her come in since vomiting is a symptom of covid. Pt states that she didn't want to come. Allergies and Home Medications Allergies Coded Allergies: Nitrofurantoin Macrocrystal (Unverified Allergy, Unknown, RASH, 11/12/18) Penicillins (Unverified Allergy, Unknown, RASH, pt has received Ceftriaxone & Cefazolin w/o issue, 11/12/18) mushroom (Verified Allergy, Unknown, RASH, 11/12/18) egg (Unverified Adverse Reaction, Unknown, 11/12/18) Home Medications Aripiprazole 10 Mg Tablet, 10 MG PO DAILY, (Reported) Ciprofloxacin 250 Mg/5 Ml Taniya.mc.rec, 250 MG PO DAILY, (Reported) Fluoxetine HCl 40 Mg Capsule, 40 MG PO BID, (Reported) Insulin Glargine,Hum.rec.anlog 100 Unit/1 Ml Vial, 20 UNIT SQ HS, (Reported) Insulin Lispro 100 Unit/1 Ml Insuln.pen, 8 UNIT SQ AC, (Reported) Metformin HCl 500 Mg Tablet, 500 MG PO BID, (Reported) Omeprazole 40 Mg Capsule.dr, 40 MG PO DAILY, (Reported) Psyllium Husk/Aspartame 3.4 Gm Powd.pack, 3.4 GM PO BIDAC Prescribed by: ELIO MORALES on 11/19/18 1033 Ropinirole HCl 4 Mg Tab.er.24h, 4 MG PO HS, (Reported) Sulfamethoxazole/Trimethoprim 1 Each Tablet, 1 EACH PO BID Prescribed by: THADDEUS LEACH on 03/16/20 1211 Past Vctbvpk-Vhwtfg-Ibfmjx Hx Patient Social History Tobacco Use?: No Use of E-Cig and/or Vaping dev: No Substance use?: No Alcohol Use?: No Pt feels they are or have been: No Immunizations Up To Date Tetanus Booster (TDap): Unknown PED Vaccines UTD: No Influenza Vaccine Up-to-Date: No; Not Current Seasonal Allergies Seasonal Allergies: No Past Medical History Surgeries: Yes Hysterectomy, Orthopedic, Tonsillectomy Respiratory: No Cardiac: No Neurological: No Parkinson's Disease 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 No Pertinent Family Hx Physical Exam Vital Signs Vital Signs - First Documented 02/03/21 20:54 Temp 36.4 Pulse 75 Resp 18 B/P (MAP) 145/70 (95) Pulse Ox 100 O2 Delivery Room Air Capillary Refill : Less Than 3 Seconds Height/Weight/BMI Height: 5'4.00" Weight: 154lbs. 0.0oz. 69.316765ju; 23.00 BMI Method:Stated Progress/Results/Core Measures Results/Orders Lab Results Laboratory Tests Test 02/03/21 19:57 02/03/21 21:10 Range/Units Influenza Type A (RT-PCR) Not Detected Not Detecte Influenza Type B (RT-PCR) Not Detected Not Detecte SARS-CoV-2 RNA (RT-PCR) Not Detected Not Detecte Urine Color YELLOW Urine Clarity CLEAR Urine pH 6.0 5-9 Urine Specific [place] <=1.005 1.016-1.022 Urine Protein NEGATIVE NEGATIVE Urine Glucose (UA) NEGATIVE NEGATIVE Urine Ketones NEGATIVE NEGATIVE Urine Nitrite NEGATIVE NEGATIVE Urine Bilirubin NEGATIVE NEGATIVE Urine Urobilinogen 0.2 < = 1.0 MG/DL Urine Leukocyte Esterase 2+ H NEGATIVE Urine RBC (Auto) TRACE-I NEGATIVE Urine RBC 0-2 /HPF Urine WBC 50-100 H /HPF Urine Squamous Epithelial Cells 2-5 /HPF Urine Crystals NONE /LPF Urine Bacteria MODERATE H /HPF Urine Casts NONE /LPF Urine Mucus NEGATIVE /LPF Urine Culture Indicated YES My Orders Orders - BEKA FLORENTINO DO Covid 19 Inhouse Test (02/03/21 20:27) Influenza A And B By Pcr (02/03/21 20:27) Vital Signs/I&O 02/03/21 20:54 Temp 36.4 Pulse 75 Resp 18 B/P (MAP) 145/70 (95) Pulse Ox 100 O2 Delivery Room Air Blood Pressure Mean: 95 Departure Impression Primary Impression: UTI (urinary tract infection) Additional Impressions: Nausea and vomiting Person under investigation for COVID-19 Disposition: 01 HOME, SELF-CARE Condition: Stable Departure-Patient Inst. Decision time for Depature: 22:35 Referrals: RIVKA PAGE DO (PCP/Family) Primary Care Physician Patient Instructions: COVID-19 Overview, Nausea and Vomiting, Adult, Urinary Tract Infection, Adult (DC) Add. Discharge Instructions: CLEAR LIQUIDS--WATER, BROTH, JELLO, GATORADE BRATS DIET--BANANAS, RICE, APPLESAUCE, TOAST, SALTINES TYLENOL AND MOTRIN NEEDED FOR PAIN OR FEVER HOLD YOUR KEFLEX WHILE TAKING CEFDINIR, THEN RESUME DAILY KEFLEX WHEN CEFDINIR IS COMPLETE QUARANTINE UNTIL YOU ARE RECHECKED AND CLEARED BY YOUR DR FOLLOW UP WITH YOUR DR IN 2-3 DAYS FOR FURTHER CARE, RETURN TO ER IF WORSE All discharge instructions reviewed with patient and/or family. Voiced understanding. Scripts Ondansetron (Ondansetron Odt) 4 Mg Tab.rapdis 4 MG PO Q4H for Nausea/Vomiting, #10 TAB Prov: BEKA FLORENTINO DO 02/03/21 Cefdinir (Cefdinir) 300 Mg Capsule 300 MG PO BID, #20 CAP Prov: BEKA FLORENTINO DO 02/03/21 BEKA FLORENTINO DO Feb 03, 2021 22:38
[2021-02-03] MEDS ORDERED: CEFDINIR 300 MG (OMNICEF) CAP PO ONE (22:45)
[2021-02-03 22:53] VITALS: BP 129/68
== END 2021-02-03 22:45 | disposition home or self-care (01) ==
LOC: EDUNIT# 19:42 → ER 19:44
DX: N39.0 Urinary tract infection, site not specified (principal); R11.2 Nausea with vomiting, unspecified; G20 Parkinson's disease; K21.9 Gastro-esophageal reflux disease without esophagitis; F41.9 Anxiety disorder, unspecified; F32.9 Major depressive disorder, single episode, unspecified; E11.9 Type 2 diabetes mellitus without complications; Z20.822 Contact with and (suspected) exposure to COVID-19; Z79.899 Other long term (current) drug therapy; Z79.84 Long term (current) use of oral hypoglycemic drugs
CPT/HCPCS: 81000; 87077; 87088; 87636; 99283

== ENCOUNTER 2021-02-13 07:58 | Outpatient (RCR) | payer MEDICARE, OTHER, MEDICAID ==
[2021-02-12 08:20] VITALS: BP 127/76
[2021-02-12] MEDS: CEFEPIME 1,000 MG/SWFI 10 ML IV PUSH IV SCH ×4 (08:40→20:12)
[2021-02-12 20:10] VITALS: BP 118/69
[~2021-02-13] VITALS: Ht 160 cm; Wt 76.8 kg
[~2021-02-13 07:58] MED LIST changes: +CEFD300C3 PO; +CEFEPIME 1 GM/10 ML (MAXIPIME) VIAL ONE
== END 2021-02-13 09:09 | disposition home or self-care (01) ==
LOC: SDC 07:58
PROVIDERS: ATTEND Internal Medicine
DX: N39.0 Urinary tract infection, site not specified (principal)
CPT/HCPCS: 36410; 76937; 96374

== ENCOUNTER 2021-02-27 14:52 | Outpatient (CLI) | payer MEDICARE, OTHER, MEDICAID ==
[~2021-02-27] VITALS: Ht 160 cm; Wt 77.2 kg
[~2021-02-27 14:52] MED LIST changes: -CEFEPIME 1 GM/10 ML (MAXIPIME) VIAL ONE
[2021-02-27 17:02] VITALS: BP 126/46
== END 2021-02-27 16:35 ==
LOC: SDC 14:52
PROVIDERS: ATTEND Internal Medicine
DX: Z45.2 Encounter for adjustment and management of vascular access device (principal)
CPT/HCPCS: 99211

== ENCOUNTER → 2021-03-01 | Outpatient (CLI) | payer MEDICARE, OTHER, MEDICAID ==
--- NOTE | 2021-03-01 14:35 | Diagnostic Imaging Report ---
PROCEDURE: CT abdomen and pelvis without contrast. TECHNIQUE: Multiple contiguous axial images were obtained through the abdomen and pelvis without the use of intravenous contrast. Auto Exposure Controls were utilized during the CT exam to meet ALARA standards for radiation dose reduction. INDICATION: Recurrent urinary tract infections. COMPARISON: Comparison is made with prior CT from 05/31/2017. FINDINGS: Lung bases are clear of acute infiltrates. There is a calcified granuloma in the right lower lobe. The liver and gallbladder are unremarkable. There is no biliary ductal dilatation. The pancreas and spleen are unremarkable. No adrenal mass is detected. Left kidney is unremarkable. Right kidney does contain several nonobstructing calculi. No definite ureteral calculi or hydronephrosis is seen. No bladder calculi are detected. Aorta is nonaneurysmal. Bowel loops are normal in caliber. There is moderate stool throughout the colon and rectum. No free fluid or fluid collection is seen. The uterus appears to be surgically absent. The bony structures are nonacute. IMPRESSION: 1. Right-sided nonobstructing nephrolithiasis. The stone burden within both kidneys has decreased since the CT study from 2016. No ureteral calculi or hydronephrosis is detected. No definite bladder calculi are detected. Dictated by: Dictated on workstation # [id number]
== END ==
LOC: RAD 13:45
PROVIDERS: ATTEND Urology
DX: N20.0 Calculus of kidney (principal); N39.0 Urinary tract infection, site not specified
CPT/HCPCS: 74176

== ENCOUNTER 2021-05-02 13:07 | Outpatient (RCR) | payer MEDICARE, OTHER, MEDICAID | END 2021-05-02 13:45 | disposition home or self-care (01) | PROVIDERS: ATTEND Anesthesiology Pain Medicine | DX: M54.16 Radiculopathy, lumbar region (principal); E11.9 Type 2 diabetes mellitus without complications ==

== ENCOUNTER 2021-07-03 13:40 | Outpatient (RCR) | payer MEDICARE, OTHER, MEDICAID | END 2021-07-05 | disposition home or self-care (01) | PROVIDERS: ATTEND Registered Nurse | DX: M54.16 Radiculopathy, lumbar region (principal); M62.838 Other muscle spasm; E11.9 Type 2 diabetes mellitus without complications ==

== ENCOUNTER 2021-07-25 12:50 | Outpatient (RCR) | payer MEDICARE, OTHER, MEDICAID | END 2021-07-25 13:43 | disposition home or self-care (01) | PROVIDERS: ATTEND Registered Nurse | DX: M54.16 Radiculopathy, lumbar region (principal); M62.838 Other muscle spasm; E11.9 Type 2 diabetes mellitus without complications; G20 Parkinson's disease; M06.9 Rheumatoid arthritis, unspecified ==

== ENCOUNTER 2022-10-17 19:36 | Emergency (ER) | payer MEDICARE, OTHER, MEDICAID ==
[~2022-10-17 19:36] MED LIST changes: -CARB1TAB19 PO; +CARB1TAB32 PO
[2022-10-17 20:18] LABS: BILIRUBIN,URINE NEGATIVE (NEGATIVE); CLARITY,URINE CLEAR; COLOR,URINE YELLOW; GLUCOSE, URINE (UA) NEGATIVE (NEGATIVE); KETONES,URINE NEGATIVE (NEGATIVE); LEUKOCYTE ESTERASE ,URINE 1+ (NEGATIVE); NITRITE,URINE NEGATIVE (NEGATIVE); PROTEIN,URINE 3+ (NEGATIVE)
--- NOTE | 2022-10-17 20:21 | ED GU-Female ---
General Chief Complaint: - Reproductive Stated Complaint: UTI PAIN Source: patient Exam Limitations: no limitations History of Present Illness Date Seen by Provider: Oct 17, 2022 Time Seen by Provider: 20:16 Initial Comments Patient is a 71-year-old female who presents ED for concern for reaction to Bactrim. Patient primary care physician Dr. Swann placed her on Bactrim secondary to urinary tract infection. She has taken 3 dose of the Bactrim and has not felt well since taking the Bactrim. Yesterday she felt nauseous after her first dose. Today after taking her third dose this morning she started vomiting. She has nausea medication at home that she took with improvement. She denies of any fever, abdominal pain, diarrhea current pain with urination, headache, dizziness, chest pain, dizziness, lightheadedness, diarrhea, shortness of breath. She believes the vomiting is secondary to the Bactrim. She vomited 5 times nonbilious. She does report some frequent urination without pain . she did have a bowel movement earlier without any pain or discomfort. Patient states she has a history of vaginal pain that is daily. Allergies and Home Medications Allergies Coded Allergies: Nitrofurantoin Macrocrystal (Unverified Allergy, Unknown, RASH, 11/12/18) Penicillins (Unverified Allergy, Unknown, RASH, pt has received Ceftriaxone & Cefazolin w/o issue, 11/12/18) mushroom (Verified Allergy, Unknown, RASH, 11/12/18) egg (Unverified Adverse Reaction, Unknown, 11/12/18) Patient Home Medication List Home Medication List Reviewed: Yes Aripiprazole (Aripiprazole) 10 Mg Tablet, 10 MG PO DAILY, (Reported) Entered as Reported by: TIMOTEO CAROLINA on 08/02/17 1500 Cefdinir (Cefdinir) 300 Mg Capsule, 300 MG PO BID Prescribed by: BEKA FLORENTINO on 02/03/212237 Cephalexin (Cephalexin) 500 Mg Tablet, 500 MG PO BID Prescribed by: CORINA CONNELL on 10/17/222035 Ciprofloxacin (Ciprofloxacin) 250 Mg/5 Ml [facility], 250 MG PO DAILY, (Reported) Entered as Reported by: GUILLE ROMERO on 11/12/18 1226 Fluoxetine HCl (Prozac) 40 Mg Capsule, 40 MG PO BID, (Reported) Entered as Reported by: MAYDA WHITE on 12/18/15 0729 Insulin Glargine,Hum.rec.anlog (Lantus) 100 Unit/1 Ml Vial, 20 UNIT SQ HS, (Reported) Entered as Reported by: GUILLE ROMERO on 11/12/18 1226 Insulin Lispro (Humalog Kwikpen) 100 Unit/1 Ml Insuln.pen, 8 UNIT SQ AC, (Reported) Entered as Reported by: GUILLE ROMERO on 11/12/18 1226 Metformin HCl (Metformin HCl) 500 Mg Tablet, 500 MG PO BID, (Reported) Entered as Reported by: SIVLIA COLINDRES on 02/26/17 0345 Omeprazole (Omeprazole) 40 Mg Capsule.dr, 40 MG PO DAILY, (Reported) Entered as Reported by: SILVIA COLINDRES on 02/26/17 0345 Ondansetron (Ondansetron Odt) 4 Mg Tab.rapdis, 4 MG PO Q4H Prescribed by: BEKA FLORENTINO on 02/03/218 Psyllium Husk/Aspartame (Metamucil Fiber Singles Packet) 3.4 Gm Powd.pack, 3.4 GM PO BIDAC Prescribed by: ELIO MORALES on 11/19/18 1033 Ropinirole HCl (Ropinirole HCl) 4 Mg Tab.er.24h, 4 MG PO HS, (Reported) Entered as Reported by: GUILLE ROMERO on 11/12/18 1226 Sulfamethoxazole/Trimethoprim (Bactrim Ds Tablet) 1 Each Tablet, 1 EACH PO BID Prescribed by: THADDEUS LEACH on 03/16/20 1211 Review of Systems Review of Systems Constitutional: No chills, No diaphoresis, No fever, No malaise, No weakness EENTM: No ear pain, No blurred vision, No double vision, No vision loss, No hoarseness, No mouth pain Respiratory: No cough, No dyspnea on exertion Cardiovascular: No chest pain Gastrointestinal: No abdominal pain, No diarrhea; nausea; No vomiting Genitourinary: denies burning, denies discharge, denies dysuria, denies frequency Musculoskeletal: No back pain, No joint pain, No joint swelling, No muscle pain Skin: No change in color, No change in hair/nails All Other Systemes Reviewed Negative Unless Noted: Yes Past Dysogtl-Xgmweb-Qxpwhl Hx Immunizations Up To Date Tetanus Booster (TDap): Unknown PED Vaccines UTD: No Seasonal Allergies Seasonal Allergies: No Past Medical History Surgeries: Yes Hysterectomy, Orthopedic, Tonsillectomy Respiratory: No Cardiac: No Neurological: No Parkinson's Disease 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 No Pertinent Family Hx Physical Exam Vital Signs Vital Signs - First Documented 10/17/22 20:10 Temp 36.2 Pulse 79 Resp 16 B/P (MAP) 160/76 (104) Pulse Ox 98 O2 Delivery Room Air Capillary Refill : Height, Weight, BMI Height: 5'4.00" Weight: 154lbs. 0.0oz. 69.829516ik; 23.00 BMI Method:Stated General Appearance: WD/WN, no apparent distress HEENT: PERRL/EOMI, normal ENT inspection, TMs normal, pharynx normal Neck: non-tender, full range of motion, supple, normal inspection Cardiovascular: regular rate, rhythm, no edema, no gallop, no JVD Respiratory: chest non-tender, lungs clear, normal breath sounds, no respiratory distress Gastrointestinal: normal bowel sounds, non tender, soft, no organomegaly Pelvic: normal external exam Back: normal inspection, no CVA tenderness, no vertebral tenderness Extremities: normal range of motion, non-tender, normal inspection, no pedal edema Neurologic/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: 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 nml as tested, no motor/sensory deficits, alert, normal mood/affect, oriented x 3 Skin: normal color, warm/dry Progress/Results/Core Measures Suspected Sepsis SIRS Temperature: Pulse: Respiratory Rate: Blood Pressure / Mean: Results/Orders Lab Results Laboratory Tests Test 10/17/22 20:11 Range/Units Urine Color YELLOW Urine Clarity CLEAR Urine pH 6.0 5-9 Urine Specific [place] 1.025 H 1.016-1.022 Urine Protein 3+ H NEGATIVE Urine Glucose (UA) NEGATIVE NEGATIVE Urine Ketones NEGATIVE NEGATIVE Urine Nitrite NEGATIVE NEGATIVE Urine Bilirubin NEGATIVE NEGATIVE Urine Urobilinogen 0.2 < = 1.0 MG/DL Urine Leukocyte Esterase 1+ H NEGATIVE Urine RBC (Auto) 1+ H NEGATIVE Urine RBC 5-10 H /HPF Urine WBC 25-50 H /HPF Urine Squamous Epithelial Cells 2-5 /HPF Urine Crystals NONE /LPF Urine Bacteria FEW H /HPF Urine Casts NONE /LPF Urine Mucus NEGATIVE /LPF Urine Culture Indicated YES My Orders Orders - CORDELIA MAYER Ua Culture If Indicated (10/17/22 19:58) Urine Culture (10/17/22 20:11) Ceftriaxone Iv/Im (Rocephin Iv/Im) (10/17/22 20:45) Lidocaine 1% Inj 20 Ml (Xylocaine 1% Inj (10/17/22 20:45) Vital Signs/I&O 10/17/22 20:10 Temp 36.2 Pulse 79 Resp 16 B/P (MAP) 160/76 (104) Pulse Ox 98 O2 Delivery Room Air Capillary Refill : Departure Communication (PCP) History of UTIs. Patient was placed on Bactrim yesterday by her primary care physician for urinary tract infection. She states every time she takes the medication she gets nauseous and vomits. She vomited at least 5 times today nonbilious without hematemesis. She took nausea medication at home with improvment. Tolerate p.o. fluids here. She has no complaints such as abdominal pain, dysuria. She does report frequent urination. She states she has chronic vaginal pain but would not provide details. She states she gets frequent urinary tract infections. Patient was given a dose of Rocephin after her urinalysis tested positive here. She is not febrile or tachycardic. She does not appear toxic or septic. We will switch to Keflex. Stop the Bactrim. She does have nausea medication at home. If any worsening symptoms such as developing pain with urination, fever, vomiting to return back to ED Impression Primary Impression: UTI (urinary tract infection) Disposition: 01 HOME, SELF-CARE Condition: Stable Departure-Patient Inst. Decision time for Depature: 20:36 Referrals: SHANTEL STEVENS MD (PCP) Primary Care Physician Patient Instructions: Urinary Tract Infection, Adult (DC) Scripts Cephalexin (Cephalexin) 500 Mg Tablet 500 MG PO BID for 7 Days, #14 TAB Prov: CORDELIA MAYER 10/17/22 CORDELIA MAYER Oct 17, 2022 20:21
[2022-10-17 20:27] LABS: WBC,URINE 25-50 /HPF
[2022-10-17 20:28] LABS: BACTERIA,URINE FEW /HPF
[2022-10-17] MEDS ORDERED: CEPH500T PO (20:36)
[2022-10-17] MEDS ORDERED: LIDOCAINE 1% INJ 20 ML VIAL INJ ONE (20:45)
[2022-10-17] MEDS ORDERED: cefTRIAXone 1,000 MG VIAL (for IV or IM) IM ONE (20:45)
[2022-10-17 20:50] VITALS: BP 154/78
== END 2022-10-17 20:51 | disposition home or self-care (01) ==
LOC: EDUNIT# 19:36 → ER 19:38
DX: N39.0 Urinary tract infection, site not specified (principal); Z88.0 Allergy status to penicillin; Z88.1 Allergy status to other antibiotic agents; Z28.310 Unvaccinated for COVID-19
CPT/HCPCS: 81000; 87088; 99284

== ENCOUNTER 2023-04-07 15:38 | Emergency (ER) | payer MEDICARE, OTHER, MEDICAID ==
[~2023-04-07] VITALS: Ht 160 cm; Wt 73.0 kg
[~2023-04-07 15:38] MED LIST changes: +CEPH500T PO; -CIPR250S3 PO; +CIPR250S4 PO; +ROPI2TAB52; -ROPI2TAB6; +ROPI3TAB21 PO; -ROPI3TAB4 PO
--- NOTE | 2023-04-07 16:03 | ED Fall/Injury ---
General Chief Complaint: Trauma-Non Activation Stated Complaint: FALL Nursing Triage Note: PT ARRIVED PER EMS, PT FELL AT [facility], WAS TAKING WALKER OUT OF CAR AND FELL BACKWARS AND HAS A LAC TO BACK OF HEAD, ABRASION ON ELBOWS AND PAIN IN L SHOULDER. PT HAS A C-COLLAR IN PLACE. PT DENIES LOC. RATES PAIN 12/13. (LATRICE ACEVEDO) History of Present Illness Date Seen by Provider: Apr 07, 2023 Time Seen by Provider: 15:40 Initial Comments 72-year-old female presents via EMS after a [place] the [place] lot. She reports lifting her walker to put in the car when she lost her balance falling backwards causing a laceration to the occipital region. Distally patient denies any loss of consciousness. She is complaining of bilateral elbow pain with superficial abrasions. She has a history of costochondritis with increased rib pain today. She denies any other symptoms at this time. Reports her last tetanus vaccine was the last< 5 years ago Occurred: just prior to arrival Severity: mild Injuries/Pain Location: head, other (ribs) Context: lost balance Loss of Consciousness: no loss of consciousness Associated Symptoms (Fall): No Abdominal Pain, No Chest Pain, No Confusion, No Dizziness, No Headache, No Lightheadedness, No Muscle Spasms, No Nausea/Vomiting, No Neck Pain, No Ringing in Ears, No Seizures, No Shortness of Air, No Slurred Speech, No Trouble Walking, No Vision Changes (LATRICE ACEVEDO) Allergies and Home Medications Allergies Coded Allergies: Nitrofurantoin Macrocrystal (Unverified Allergy, Unknown, RASH, 11/12/18) Penicillins (Unverified Allergy, Unknown, RASH, pt has received Ceftriaxone & Cefazolin w/o issue, 11/12/18) meclizine (Verified Allergy, Unknown, 04/07/23) mushroom (Verified Allergy, Unknown, RASH, 11/12/18) sulfamethoxazole (Verified Allergy, Unknown, 04/07/23) trimethoprim (Verified Allergy, Unknown, 04/07/23) egg (Unverified Adverse Reaction, Unknown, 11/12/18) Patient Home Medication List Home Medication List Reviewed: Yes (LATRICE ACEVEDO) Aripiprazole (Aripiprazole) 10 Mg Tablet, 10 MG PO DAILY, (Reported) Entered as Reported by: TIMOTEO CAROLINA on 08/02/17 1500 Cefdinir (Cefdinir) 300 Mg Capsule, 300 MG PO BID Prescribed by: BEKA FLORENTINO on 02/03/212237 Cephalexin (Cephalexin) 500 Mg Tablet, 500 MG PO BID Prescribed by: CORINA CONNELL on 10/17/222035 Cephalexin (Cephalexin) 500 Mg Tablet, 500 MG PO TID Prescribed by: CORINA CONNELL on 04/07/23 171 Ciprofloxacin (Ciprofloxacin) 250 Mg/5 Ml Taniya.mc.rec, 250 MG PO DAILY, (Reported) Entered as Reported by: GUILLE RMOERO on 11/12/18 122 Fluoxetine HCl (Prozac) 40 Mg Capsule, 40 MG PO BID, (Reported) Entered as Reported by: MAYDA WHITE on 12/18/15 0729 Insulin Glargine,Hum.rec.anlog (Lantus) 100 Unit/1 Ml Vial, 20 UNIT SQ HS, (Reported) Entered as Reported by: GUILLE ROMERO on 11/12/18 1226 Insulin Lispro (Humalog Kwikpen) 100 Unit/1 Ml Insuln.pen, 8 UNIT SQ AC, (Reported) Entered as Reported by: GUILLE ROMERO on 11/12/18 1226 Metformin HCl (Metformin HCl) 500 Mg Tablet, 500 MG PO BID, (Reported) Entered as Reported by: SILVIA COLINDRES on 02/26/17 0345 Omeprazole (Omeprazole) 40 Mg Capsule.dr, 40 MG PO DAILY, (Reported) Entered as Reported by: SILVIA COLINDRES on 02/26/17 034 Ondansetron (Ondansetron Odt) 4 Mg Tab.rapdis, 4 MG PO Q4H Prescribed by: BEKA FLORENTINO on 02/03/212237 Psyllium Husk/Aspartame (Metamucil Fiber Singles Packet) 3.4 Gm Powd.pack, 3.4 GM PO BIDAC Prescribed by: ELIO MORALES on 11/19/18 1033 Ropinirole HCl (Ropinirole HCl) 4 Mg Tab.er.24h, 4 MG PO HS, (Reported) Entered as Reported by: GUILLE ROMERO on 11/12/18 1226 Sulfamethoxazole/Trimethoprim (Bactrim Ds Tablet) 1 Each Tablet, 1 EACH PO BID Prescribed by: THADDEUS LEACH on 03/16/20 1211 Review of Systems Review of Systems Constitutional: no symptoms reported, see HPI Eyes: No Symptoms Reported, See HPI Ears, Nose, Mouth, Throat: see HPI Respiratory: no symptoms reported, see HPI; No short of breath Cardiovascular: no symptoms reported, see HPI Gastrointestinal: no symptoms reported, see HPI Genitourinary: no symptoms reported, see HPI Skin: see HPI, other (abrasion bilat elbows and occiptial laceration) (LATRICE ACEVEDO) All Other Systems Reviewed Negative Unless Noted: Yes (LATRICE ACEVEDO) Past Njeuytq-Dxymhe-Hvqdzu Hx Patient Social History Tobacco Use?: No Substance use?: No Alcohol Use?: No Pt feels they are or have been: No (LATRICE ACEVEDO) Immunizations Up To Date Tetanus Booster (TDap): Unknown PED Vaccines UTD: No (LATRICE ACEVEDO) Seasonal Allergies Seasonal Allergies: No (LATRICE ACEVEDO) Past Medical History Surgery/Hospitalization HX: CARPAL TUNNEL, CATERACT BILATERALLY, HYST, TONSILECTOMY, Surgeries: Yes Hysterectomy, Orthopedic, Tonsillectomy Respiratory: No Cardiac: No Neurological: No Parkinson's Disease 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 No Pertinent Family Hx (LATRICE ACEVEDO) Physical Exam Vital Signs Vital Signs - First Documented 04/07/23 15:40 Temp 37.0 Pulse 79 Resp 16 B/P (MAP) 155/79 (104) Pulse Ox 100 (CORDELIA MAYER PA) Vital Signs Capillary Refill : Less Than 3 Seconds (LATRICE ACEVEDO) Height, Weight, BMI Height: 5'4.00" Weight: 154lbs. 0.0oz. [id number]; 28.00 BMI Method:Stated General Appearance: WD/WN, no apparent distress HEENT: PERRL/EOMI, normal ENT inspection, pharynx normal Neck: non-tender, supple, normal inspection, other (C collar in place) Cardiovascular: normal peripheral pulses, regular rate, rhythm Respiratory: chest non-tender, lungs clear, normal breath sounds Gastrointestinal: normal bowel sounds, non tender, soft Extremities: normal range of motion, no pedal edema, no calf tenderness, normal capillary refill, other (no Swelling, full range of motion bilateral elbows. superficial abrasions no active bleedin) Neurologic/Psychiatric: no motor/sensory deficits, alert, normal mood/affect, oriented x 3 Skin: normal color, warm/dry (LATRICE ACEVEDO) Procedures/Interventions Wound Location: Scalp Other Wound Location posterior head Wound Length (cm): 2 Wound's Depth, Shape: superficial, sub Q Wound Explored: clean Irrigated w/ Saline (ccs): 300 Betadine Prep?: Yes Anesthesia: 1% Lidocaine Volume Anesthetic (ccs): 5 Staple Repair: Stapler 35W Number of Sutures: 5 Layer Closure?: 1 Sterile Dressing Applied?: Yes (CORDELIA MAYER) Progress/Results/Core Measures Results/Orders Lab Results Laboratory Tests Test 04/07/23 16:24 04/07/23 16:30 Range/Units White Blood Count 10.7 4.3-11.0 10^3/uL Red Blood Count 4.05 3.80-5.11 10^6/uL Hemoglobin 12.0 11.5-16.0 g/dL Hematocrit 37 35-52 % Mean Corpuscular Volume 91 80-99 fL Mean Corpuscular Hemoglobin 30 25-34 pg Mean Corpuscular Hemoglobin Concent 33 32-36 g/dL Red Cell Distribution Width 13.2 10.0-14.5 % Platelet Count 460 H 130-400 10^3/uL Mean Platelet Volume 9.4 9.0-12.2 fL Immature Granulocyte % (Auto) 0 % Neutrophils (%) (Auto) 60 42-75 % Lymphocytes (%) (Auto) 24 12-44 % Monocytes (%) (Auto) 9 0-12 % Eosinophils (%) (Auto) 6 0-10 % Basophils (%) (Auto) 1 0-10 % Neutrophils # (Auto) 6.4 1.8-7.8 10^3/uL Lymphocytes # (Auto) 2.6 1.0-4.0 10^3/uL Monocytes # (Auto) 1.0 0.0-1.0 10^3/uL Eosinophils # (Auto) 0.6 H 0.0-0.3 10^3/uL Basophils # (Auto) 0.1 0.0-0.1 10^3/uL Immature Granulocyte # (Auto) 0.0 0.0-0.1 10^3/uL Prothrombin Time 14.3 12.2-14.7 SEC INR Comment 1.1 0.8-1.4 Activated Partial Thromboplast Time 33 24-35 SEC Sodium Level 140 135-145 MMOL/L Potassium Level 3.5 L 3.6-5.0 MMOL/L Chloride Level 112 H 98-107 MMOL/L Carbon Dioxide Level 16 L 21-32 MMOL/L Anion Gap 12 5-14 MMOL/L Blood Urea Nitrogen 64 H 7-18 MG/DL Creatinine 1.51 H 0.60-1.30 MG/DL Estimat Glomerular Filtration Rate 37 BUN/Creatinine Ratio 42 Glucose Level 70 70-105 MG/DL Calcium Level 9.4 8.5-10.1 MG/DL Corrected Calcium 9.5 8.5-10.1 MG/DL Total Bilirubin 0.3 0.1-1.0 MG/DL Aspartate Amino Transf (AST/SGOT) 17 5-34 U/L Alanine Aminotransferase (ALT/SGPT) 7 0-55 U/L Alkaline Phosphatase 93 40-136 U/L Total Protein 7.9 6.4-8.2 GM/DL Albumin 3.9 3.2-4.5 GM/DL Urine Color YELLOW Urine Clarity TURBID Urine pH 6.5 5-9 Urine Specific Sherwood 1.015 L 1.016-1.022 Urine Protein 3+ H NEGATIVE Urine Glucose (UA) NEGATIVE NEGATIVE Urine Ketones NEGATIVE NEGATIVE Urine Nitrite NEGATIVE NEGATIVE Urine Bilirubin NEGATIVE NEGATIVE Urine Urobilinogen 0.2 < = 1.0 MG/DL Urine Leukocyte Esterase 2+ H NEGATIVE Urine RBC (Auto) NEGATIVE NEGATIVE Urine RBC NONE /HPF Urine WBC 50-100 H /HPF Urine Squamous Epithelial Cells RARE /HPF Urine Crystals NONE /LPF Urine Bacteria TRACE /HPF Urine Casts NONE /LPF Urine White Blood Cell Casts /LPF Urine Mucus NEGATIVE /LPF Urine Culture Indicated YES (CORDELIA MAYER) My Orders Orders - CORDELIA MAYER Lidocaine 1% Inj 10 Ml (Xylocaine 1% Inj (04/07/23 17:00) (CORDELIA MAYER) Medications Given in ED Current Medications Medications Dose Ordered Sig/Matt Route Start Time Stop Time Status Last Admin Dose Admin Lidocaine HCl 10 ml ONCE ONCE INJ 04/07/23 17:00 04/07/23 17:01 DC 04/07/23 17:18 10 ML (CORDELIA MAYER) Vital Signs/I&O 04/07/23 04/07/23 15:40 17:27 Temp 37.0 37.0 Pulse 79 75 Resp 16 18 B/P (MAP) 155/79 (104) 143/72 Pulse Ox 100 100 (CORDELIA MAYER) Blood Pressure Mean: 104 Progress Progress Note : Time: 15:40 Progress Note Patient assessed, neurologically intact. C-collar in place. Will obtain CT of the head and neck, X-ray of bilateral ribs. Labs and reevaluate patient denies need for pain medication at this time or other requests. will re-assess occipital laceration and address wound after c-collar cleared. 1620 Care Transferred to CORINA Anders (LATRICE ACEVEDO) Diagnostic Imaging Diagonstic Imaging: CT Plain Films/CT/US/NM/MRI: c-spine, head Comments NAME: TIN JAIME [facility] REC#: [id number] PT STATUS: REG ER : 1950 PHYSICIAN: LATRICE ACEVEDO ADMIT DATE: 04/07/23/ER Draft Date of Exam:04/07/23 CT HEAD/CERVICAL SPINE WO PROCEDURE: CT head and CT cervical spine without contrast. TECHNIQUE: Multiple contiguous axial images were obtained through the brain and cervical spine without the use of intravenous contrast. Sagittal and coronal reformations through the cervical spine were then performed. Auto Exposure Controls were utilized during the CT exam to meet ALARA standards for radiation dose reduction. INDICATION: Fall with laceration to the back of the head, complaining of head and neck pain. COMPARISON: Comparison is made with prior head CT from 08/04/2017. FINDINGS: CT HEAD: There does appear to be some soft tissue swelling involving the posterior scalp and the occiput. Ventricles and sulci are within normal limits. No sulcal effacement or midline shift is identified. No acute intra-axial or extra-axial hemorrhage is detected. Cisterns are patent. Visualized paranasal sinuses are clear. IMPRESSION: Posterior scalp swelling. No acute intracranial process is detected. CT CERVICAL SPINE: Curvature and alignment of the cervical spine is normal. There is multilevel degenerative disc and facet disease. There is variable disc space narrowing and marginal spurring. Prevertebral tissues are within normal limits. Odontoid is intact. No fractures are seen. IMPRESSION: Cervical spondylosis. No acute bony abnormality is detected. Dictated on workstation # [id number] Dict: 04/07/231613 Trans: 04/07/231622 AS6 [id number] Interpreted by: BERENICE RENE MD Electronically signed by: Reviewed: Reviewed by Me Diagonstic Imaging: Xray Plain Films/CT/US/NM/MRI: other (ribs) Comments NAME: TIN JAIME [facility] REC#: [id number] PT STATUS: REG ER : 1950 PHYSICIAN: LATRICE ACEVEDO ADMIT DATE: 04/07/23/ER Draft Date of Exam:04/07/23 RIBS/ BILATERAL INDICATION: Bilateral rib pain. TECHNIQUE: Four views of the ribs are obtained. FINDINGS: There are no displaced fractures. There is no effusion or pneumothorax. IMPRESSION: Unremarkable bilateral ribs. Dictated on workstation # [id number] Dict: 04/07/231622 Trans: 04/07/231625 AS6 [id number] Interpreted by: SHERI BREWER MD Electronically signed by: Reviewed: Reviewed by Me (LATRICE ACEVEDO) Transfer of Care Time: 16:20 Care transferred to: Ky Mayer (LATRICE ACEVEDO) Departure Communication (PCP) Took over care from Latrice at 4 PM. Waiting results from lab work. CT scan of the head and cervical neck were negative for fracture. She does have a 2 cm occi pital laceration. 5 mesha were placed here in the ED. She is up-to-date on her tetanus. Not on blood thinners. Neuro exam unremarkable. She just recently finished antibiotics for UTI. She states she had resistant bacteria that required IV antibiotics. She has no urinary symptoms. Her platelets were 460, creatinine 1.51, BUN 64, GFR 37, potassium 3.5. These are the only abnormal lab work. In 2019 she had a creatinine 1.31. Creatinine likely more chronic and stable. She denies of any vomiting or diarrhea. She does not appear dry. No signs stable. Neuro exam unremarkable. Her chest x-ray was negative for fracture. Urinalysis were positive for white blood cells 50-100. Culture currently pending. She had a urine culture in October which showed normal luisa. No recent comparison. History of UTIs. she could not recall of the bacteria that she was treating or the antibiotic. At this time we will start Keflex. Currently recommend following up with your primary care regarding the results of the urinalysis. Continue with your walker. Follow-up with staple removal in 7 days. If any worsening symptoms such as severe head pain, vomiting, change in mental status to return back to ED (CORDELIA MAYER) Impression Primary Impression: Fall Qualified Codes: W19.XXXA - Unspecified fall, initial encounter Additional Impressions: Occipital scalp laceration Qualified Codes: S01.01XA - Laceration without foreign body of scalp, initial encounter Contusion of elbow, left Qualified Codes: S50.02XA - Contusion of left elbow, initial encounter Contusion of elbow, right Qualified Codes: S50.01XA - Contusion of right elbow, initial encounter Disposition: 01 HOME, SELF-CARE Condition: Stable Departure-Patient Inst. Decision time for Depature: 17:19 (CORDELIA MAYER) Referrals: [facility] REUBEN,LOCAL PHYSICIAN (PCP) Primary Care Physician Patient Instructions: Laceration Repair With [facility] Add. Discharge Instructions: Recommend removing mesha and 7 to 8 days. Take antibiotics as prescribed. Follow-up with your primary regarding urinalysis. Pain medication as needed. All discharge instructions reviewed with patient and/or family. Voiced unde rstanding. Scripts Cephalexin (Cephalexin) 500 Mg Tablet 500 MG PO TID for 7 Days, #21 TAB Prov: CORDELIA MAYER 04/07/23 LATRICE ACEVEDO Apr 07, 2023 16:03 CORDELIA MAYER Apr 07, 2023 17:20
--- NOTE | 2023-04-07 16:23 | Diagnostic Imaging Report ---
PROCEDURE: CT head and CT cervical spine without contrast. TECHNIQUE: Multiple contiguous axial images were obtained through the brain and cervical spine without the use of intravenous contrast. Sagittal and coronal reformations through the cervical spine were then performed. Auto Exposure Controls were utilized during the CT exam to meet ALARA standards for radiation dose reduction. INDICATION: Fall with laceration to the back of the head, complaining of head and neck pain. COMPARISON: Comparison is made with prior head CT from 08/04/2017. FINDINGS: CT HEAD: There does appear to be some soft tissue swelling involving the posterior scalp and the occiput. Ventricles and sulci are within normal limits. No sulcal effacement or midline shift is identified. No acute intra-axial or extra-axial hemorrhage is detected. Cisterns are patent. Visualized paranasal sinuses are clear. IMPRESSION: Posterior scalp swelling. No acute intracranial process is detected. CT CERVICAL SPINE: Curvature and alignment of the cervical spine is normal. There is multilevel degenerative disc and facet disease. There is variable disc space narrowing and marginal spurring. Prevertebral tissues are within normal limits. Odontoid is intact. No fractures are seen. IMPRESSION: Cervical spondylosis. No acute bony abnormality is detected. Dictated by: Dictated on workstation # [id number]
--- NOTE | 2023-04-07 16:26 | Diagnostic Imaging Report ---
INDICATION: Bilateral rib pain. TECHNIQUE: Four views of the ribs are obtained. FINDINGS: There are no displaced fractures. There is no effusion or pneumothorax. IMPRESSION: Unremarkable bilateral ribs. Dictated by: Dictated on workstation # [id number]
[2023-04-07 16:32] LABS: BASOPHILS # (AUTO) 0.1 10^3/uL (0.0-0.1); BASOPHILS % (AUTO) 1 % (0-10); EOSINOPHILS # (AUTO) 0.6 10^3/uL (0.0-0.3); EOSINOPHILS % (AUTO) 6 % (0-10); HEMATOCRIT 37 % (35-52); LYMPHOCYTES # (AUTO) 2.6 10^3/uL (1.0-4.0); LYMPHOCYTES % (AUTO) 24 % (12-44); MEAN CORPUSCULAR HEMOGLOBIN 30 pg (25-34); MEAN CORPUSCULAR HGB CONC 33 g/dL (32-36); MEAN CORPUSCULAR VOLUME 91 fL (80-99); MEAN PLATELET VOLUME 9.4 fL (9.0-12.2); MONOCYTES % (AUTO) 9 % (0-12); NEUTROPHILS # (AUTO) 6.4 10^3/uL (1.8-7.8); NEUTROPHILS % (AUTO) 60 % (42-75); PLATELET COUNT 460 10^3/uL (130-400); WHITE BLOOD COUNT 10.7 10^3/uL (4.3-11.0)
[2023-04-07 16:45] LABS: ALBUMIN 3.9 GM/DL (3.2-4.5); POTASSIUM 3.5 MMOL/L (3.6-5.0)
[2023-04-07 16:47] LABS: CALCIUM 9.4 MG/DL (8.5-10.1)
[2023-04-07 16:48] LABS: INR 1.1 (0.8-1.4); PROTHROMBIN TIME PATIENT 14.3 SEC (12.2-14.7); TOTAL PROTEIN 7.9 GM/DL (6.4-8.2)
[2023-04-07 16:50] LABS: BILIRUBIN,TOTAL 0.3 MG/DL (0.1-1.0)
[2023-04-07 16:51] LABS: CREATININE SERUM 1.51 MG/DL (0.60-1.30)
[2023-04-07 16:54] LABS: CLARITY,URINE TURBID; COLOR,URINE YELLOW; PH,URINE 6.5 (5-9)
[2023-04-07 16:55] LABS: BACTERIA,URINE TRACE /HPF; BILIRUBIN,URINE NEGATIVE (NEGATIVE); GLUCOSE, URINE (UA) NEGATIVE (NEGATIVE); KETONES,URINE NEGATIVE (NEGATIVE); LEUKOCYTE ESTERASE ,URINE 2+ (NEGATIVE); NITRITE,URINE NEGATIVE (NEGATIVE); PROTEIN,URINE 3+ (NEGATIVE); SQUAMOUS EPITHELIAL CELL,UR RARE /HPF; WBC,URINE 50-100 /HPF
[2023-04-07] MEDS ORDERED: LIDOCAINE 1% INJ 10 ML VIAL INJ ONE (17:00)
[2023-04-07] MEDS ORDERED: CEPH500T PO (17:19)
[2023-04-07 17:27] VITALS: BP 143/72
== END 2023-04-07 17:31 | disposition home or self-care (01) ==
LOC: EDUNIT# 15:38 → ER 15:39
DX: S01.01XA Laceration without foreign body of scalp, initial encounter (principal); S50.02XA Contusion of left elbow, initial encounter; S50.01XA Contusion of right elbow, initial encounter; W18.30XA Fall on same level, unspecified, initial encounter; Y92.481 Parking lot as the place of occurrence of the external cause
CPT/HCPCS: 12001; 36415; 51701; 70450; 71110; 72125; 80053; 81000; 85025; 85610; 85730; 87088